=== PATIENT | male | born 1950 | race Caucasian/White ===

== ENCOUNTER 2017-04-11 17:58 | Emergency (ER) | payer MEDICARE, OTHER ==
[2017-04-11 18:43] VITALS: BP 131/70
--- NOTE | 2017-04-11 18:50 | UC ---
Skin Complaint HPI - HPI Summary HPI Summary: 67 year old male presents with complains of left 5th toe infection. - History of Current Complaint Chief Complaint: UCLowerExtremity Time Seen by Provider: 04/11/17 18:49 Stated Complaint: SORE ON LEFT PINKY TOE Hx Obtained From: Patient Onset/Duration: Sudden Onset Onset Severity: Moderate Current Severity: Moderate Pain Scale Used: 0-10 Numeric - 2 - Allergy/Home Medications Allergies/Adverse Reactions: Allergies Allergy/AdvReac Type Severity Reaction Status Date / Time Penicillins AdvReac Intermediate GI Verified 04/11/17 18:44 irritation Review of Systems Constitutional: Negative Skin: Other - left 5th toe infection Eyes: Negative ENT: Negative Respiratory: Negative Cardiovascular: Negative Gastrointestinal: Negative Genitourinary: Negative Motor: Negative Neurovascular: Negative Musculoskeletal: Negative Neurological: Negative Psychological: Negative All Other Systems Reviewed And Are Negative: Yes PMH/Surg Hx/FS Hx/Imm Hx Previously Healthy: Yes - Surgical History Surgical History: Yes Surgery Procedure, Year, and Place: Three inguinal hernia repairs. Tonsillectomy - Family History Known Family History: Positive: Cardiac Disease - Father of [place] at age 52, Diabetes - Social History Alcohol Use: Weekly Alcohol Amount: 3-4 DRINKS/DAY Substance Use Type: None Smoking Status (MU): Former Smoker Physical Exam Triage Information Reviewed: Yes Vital Signs: Initial Vital Signs Temp 36.8 C 04/11/17 18:39 Pulse 100 04/11/17 18:39 Resp 20 04/11/17 18:39 BP 131/70 04/11/17 18:39 Pulse Ox 99 04/11/17 18:39 Vital Signs Reviewed: Yes Eye Exam: Normal ENT Exam: Normal Dental Exam: Normal Neck exam: Normal Neck: Positive: 1 Respiratory Exam: Normal Cardiovascular Exam: Normal Abdominal Exam: Normal Musculoskeletal Exam: Normal Neurological Exam: Normal Psychological Exam: Normal Skin: Positive: Other - left 5th toe infection Course/Dx - Diagnoses Provider Diagnoses: left 5th toe infection Discharge - Discharge Plan Condition: Stable Disposition: OTHER Discharge Disposition Comment: patient suggested to go to the er Patient Education Materials: Wound Infection (ED) Referrals: Ramez Akins MD [Primary Care Provider] - Additional Instructions: patient suggested to go to the er for severe left 5th toe infection.
== END 2017-04-11 19:15 ==
LOC: UCEAST 17:58
DX: L08.9 Local infection of the skin and subcutaneous tissue, unspecified (principal); Z88.0 Allergy status to penicillin; Z87.891 Personal history of nicotine dependence
CPT/HCPCS: 99212; G0463

== ENCOUNTER 2017-04-11 20:36 | Inpatient (IN) | payer MEDICARE, OTHER ==
[2017-04-11] MEDS ORDERED: Ciprofloxacin 400MG IVPREMIX(* 400 MG/200 ML BAG IVPB ONE (21:35)
[2017-04-11] MEDS ORDERED: metroNIDAZOLE IV 500 MG/100ML* 500 MG/100 ML BAG IVPB ONE (21:35)
[2017-04-11] MEDS ORDERED: Vancomycin(*) 1,000 MG VIAL IVPB SCH (22:00)
[2017-04-11 22:29] LABS: ABS Basophils 0.1 10^3/ul (0-0.2); ABS Eosinophils 0.1 10^3/ul (0-0.6); ABS Lymphocytes 0.7 10^3/ul (1.0-4.8); ABS Monocytes 1.2 10^3/ul (0-0.8); ABS Neutrophils 7.7 10^3/ul (1.5-7.7); ABS Nucleated RBC 0 10^3/ul; Eosinophil % 0.6 % (0-6); Hematocrit 41 % (42-52); Hemoglobin 14.5 g/dl (14.0-18.0); Lymphocyte % 6.9 % (25-47); Mean Corpuscular HGB Conc 36 g/dl (31-36); Mean Corpuscular Hemoglobin 35 pg (27-31); Mean Corpuscular Volume 99 fL (80-94); Mean Platelet Volume 9 um3 (7.4-10.4); Nucleated Red Blood Cells % 0; Platelet Count 180 10^3/ul (150-450); Red Cell Distribution Width 14 % (10.5-15); Urine Appearance Clear; Urine Blood Negative (Negative); Urine Color Yellow; Urine Ketones Trace (Negative); Urine Protein Negative (Negative); Urine Specific Gravity 1.005 (1.010-1.030); Urine Urobilinogen Negative (Negative); White Blood Count 9.8 10^3/ul (3.5-10.8)
--- NOTE | 2017-04-11 22:29 | RAD ---
INDICATION: Left small toe ulcer TECHNIQUE: 3 views of the left small toe were obtained. FINDINGS: There is visible soft tissue swelling surrounding the left small toe. There is cortical destruction and bony resorption involving the distal pole of the proximal phalanx and most of the middle phalanx. IMPRESSION: Ill-defined destruction involving the distal pole of the proximal phalanx and middle phalanx of the left small toe. Please correlate to history of traumatic injury, osteomyelitis or or crystalline arthropathy such as gout.
[2017-04-11 22:38] LABS: INR 1.36 (0.77-1.02)
[2017-04-11 22:40] LABS: EGFR Non-African American 79.6 (>60)
[2017-04-11] MEDS ORDERED: Zolpidem TAB* 10 MG PO PRN (23:00)
[2017-04-11] MEDS ORDERED: Morphine INJ* 2 MG/ML 1 ML SYRINGE (TWO MG - NEW SYRINGE VERSION) IV PRN (23:00)
[2017-04-11] MEDS ORDERED: Ondansetron INJ* 2 MG/ML VIAL IV PRN (23:00)
[2017-04-11] MEDS ORDERED: Acetaminophen TAB* 325 MG PO PRN (23:00)
[2017-04-11] MEDS ORDERED: Vancomycin(*) 2,000 MG in NS 0.9% 500 ML* 500 ML IVPB ONE (23:00)
[2017-04-11] MEDS ORDERED: NS 0.9% 1000 ML* 1,000 ML IV ONE (23:08)
[2017-04-12] MEDS ORDERED: Diazepam TAB(*) 5 MG PO PRN (01:40)
[2017-04-12] MEDS: Hydrochlorothiazide TAB* 25 MG PO SCH ×2 (02:31→20:52)
[2017-04-12] MEDS: Metoprolol Succinate XL TAB* 100 MG PO SCH ×2 (02:31→20:53)
[2017-04-12] MEDS: amLODIPine TAB* 5 MG PO SCH ×2 (02:35→20:52)
[2017-04-12] MEDS: Losartan TAB* 25 MG PO SCH ×2 (02:35→20:54)
[2017-04-12] MEDS: Citalopram TAB* 20 MG PO SCH ×2 (02:35→20:55)
[2017-04-12] MEDS: Atorvastatin* 20 MG TAB PO SCH ×2 (02:35→20:52)
[2017-04-12] MEDS: Tamsulosin CAP* 0.4 MG PO SCH ×2 (02:36→20:51)
[2017-04-12 05:55] LABS: ABS Basophils 0 10^3/ul (0-0.2); ABS Eosinophils 0 10^3/ul (0-0.6); ABS Lymphocytes 0.7 10^3/ul (1.0-4.8); ABS Monocytes 1.5 10^3/ul (0-0.8); ABS Neutrophils 5.8 10^3/ul (1.5-7.7); ABS Nucleated RBC 0 10^3/ul; Eosinophil % 0.6 % (0-6); Hematocrit 38 % (42-52); Hemoglobin 13.1 g/dl (14.0-18.0); Lymphocyte % 9.2 % (25-47); Mean Corpuscular HGB Conc 34 g/dl (31-36); Mean Corpuscular Hemoglobin 34 pg (27-31); Mean Corpuscular Volume 99 fL (80-94); Mean Platelet Volume 9 um3 (7.4-10.4); Nucleated Red Blood Cells % 0; Platelet Count 155 10^3/ul (150-450); Red Blood Count 3.86 10^6/ul (4.0-5.4); Red Cell Distribution Width 14 % (10.5-15); White Blood Count 8.1 10^3/ul (3.5-10.8)
[2017-04-12 06:16] LABS: EGFR Non-African American 93.2 (>60)
--- NOTE | 2017-04-12 06:23 | HP ---
CC: Dr. Akins * HISTORY AND PHYSICAL: DATE OF ADMISSION: 04/11/17 TIME OF MY EVALUATION: 11:00 p.m. PRIMARY CARE PROVIDER: Dr. Ramez Akins, [facility]. CHIEF COMPLAINT: Infected toe in the setting of diabetic neuropathy and obvious infection. HISTORY OF PRESENT ILLNESS: Mr. Luevano is a 67-year-old gentleman, brought to the emergency room with an ongoing pinky toe injury on his left foot since . The patient was getting out of his bed when he struck it and he lacerated it. The patient treated it with antiseptic wash. The patient has diabetes and neuropathy, and the toe has been progressively worse. The patient denies any systemic symptomatology. He can still ambulate without difficulty. He is concerned about the toe and that it might need to be amputated. The patient has a history of atrial fibrillation and is on anticoagulation. He also has a history of hypertension, hyperlipidemia, and diet-controlled diabetes as well as morbid obesity and depression and anxiety. The patient states that his diabetes is actually in rather good control. He states that his hemoglobin A1c is in the low 6's and that he does not take any medications for that at this time. He has no other complaints beyond his toe. PAST MEDICAL HISTORY: 1. Hypertension. 2. Hyperlipidemia. 3. Diet-controlled diabetes, reported hemoglobin A1c around 6%. 4. BPH. 5. Depression. 6. Anxiety. 7. Suspected sleep apnea. 8. Morbid obesity with BMI greater than 50. 9. Atrial fibrillation - on anticoagulation with Xarelto. OUTPATIENT MEDICATIONS: 1. Xarelto 20 mg by mouth daily. 2. Norvasc 5 mg by mouth daily. 3. Lipitor 20 mg by mouth at bedtime. 4. Celexa 20 mg by mouth daily. 5. Valium 5 mg by mouth 3 times daily p.r.n. anxiety. 6. Hyzaar (losartan/hydrochlorothiazide 100/25) one tablet by mouth once daily. 7. Toprol-XL 100 mg by mouth daily. 8. Multivitamin with minerals one tablet by mouth daily. 9. Flomax 0.4 mg by mouth daily. FAMILY HISTORY: The patient's father at age 52 from an acute NE. SOCIAL HISTORY: The patient quit smoking 30 years ago, but had a 87-cmgh-iwer smoking history before that. The patient drinks one to two beers per day. He lives with his . He lives in a community setting. REVIEW OF SYSTEMS: A review of 14 systems was accomplished at the bedside. This was largely negative except for the pertinent positives as mentioned above. This was for 14 systems. PHYSICAL EXAMINATION ON ADMISSION GENERAL: The patient is somewhat disheveled, obese elderly man who appears stated age, in no apparent distress. Awake, alert and oriented x3, and answering questions appropriately. VITAL SIGNS: Temperature 98.5 Fahrenheit, pulse 89, respirations 24, blood pressure 112/66, pulse ox 96% on room air. HEENT: Oropharynx clear. Mucous membranes are moist. NECK: Supple. No elevated JVD, though landmarks are obscured secondary to his obesity. LUNGS: Chest, clear breath sounds anteriorly without wheezing appreciation. HEART: Irregularly irregular rhythm consistent with atrial fibrillation, but rate controlled. The patient has fairly massive lower extremity edema owing to incompetent veins as per the patient. ABDOMEN: Morbidly obese, but nontender. SKIN: Dry and intact, other than his feet, which are tensely swollen and the left pinky is obviously infected and lacerated with dripping blood. NEUROLOGIC: Glove and stocking sensory diminishment consistent with longstanding diabetes. PSYCH: Normal affect. No acute anxiety or depression noted at this time. ADMISSION DATA: Includes a depressed sodium of 127, potassium borderline low at 3.7, chloride low at 91, bicarb 27, BUN 16, creatinine 0.94, glucose 105. Lactic acid initially 2.2, cleared to 1.5 with gentle hydration. Calcium 9.7. Total bilirubin 0.8. AST and ALT are 32 and 29, respectively. Alk phos elevated at 137. Total protein and albumin are 7.2 and 3.5 respectively. Urinalysis generally unremarkable. White blood cell count normal at 9.8 with a generally unremarkable differential , hemoglobin 14.5, platelets 180. INR elevated at 1.36 (on Xarelto). IMAGING: He had a toe x-ray on 2137 hours on 04/11/17 showing signs consistent with osteomyelitis with an ill-defined destruction involving the distal pole of the proximal phalanx and the middle phalanx of the left small toe. There was a suggestion that this could be secondary to crystalline arthropathy such as gout , though that is clinically not consistent with the presentation. IMPRESSION: Mr. Luevano is a 67-year-old gentleman with longstanding diabetes now, reportedly under reasonable control (but hemoglobin A1c pending here), who struck his toe and witnessed a progressive worsening of this toe to the point that it seems to clearly have osteomyelitis and a nonhealing wound. This likely needs debridement. There is evidence of osteo on imaging. The patient is going to be treated with IV antibiotics, specifically ciprofloxacin and metronidazole. The patient will be referred to Ortho or General Surgery for debridement and/or focal amputation tomorrow, 04/12/17. The patient's Xarelto is going to be held, accordingly it may take a day or two to operate depending on the bleeding concern of the surgical team. The patient is otherwise cleared for this generally minor procedure. His substantial other medications will be continued as detailed above. The patient is a full code. His surrogate decision maker is specified as his . The patient can have a consistent carbohydrate diet when he is not fasting for procedure. TIME SPENT: Total time taken to admit Mr. Luevano was 75 minutes, greater than half that time spent going over the admission history and physical at the bedside and explaining the hospital plan of care to the patient. [id number]/[facility] #: [id number] MTDD
--- NOTE | 2017-04-12 08:20 | PN ---
Subjective Date of Service: 04/12/17 Interval History: Patient seen and examined at bedside. This is a 67 yo gentleman with a history of NIDDM, HTN, HLD, afib on Xarelto, depression, and anxiety who presented to the ED with a left pinky toe injury. While the previous physician notes indicate this has been ongoing since 03/08/17 , Mr. Luevano denies this and states he struck it on some furniture this past Wednesday. He went to see his document preparer microfilming on , who apparently told him to do foot soaks. He denies any pain to the area and admits that he does not feel any pain to the toe and may not have necessarily noticed if it had an injury. He states, "I noticed there was a blister there." His XR shows evidence of osteomyelitis, which was shared with the patient. He is very anxious about toe amputation. He has no other complaints and denies any toe, foot, leg pain, fever/chills, CP, SOB, n/v, dysuria. Family History: Unchanged from Admission Social History: Unchanged from Admission Past Medical History: Unchanged from Admission Objective Active Medications: Acetaminophen (Tylenol Tab*) 650 mg PO Q4H PRN PRN Reason: FEVER/PAIN Amlodipine Besylate (Norvasc Tab*) 5 mg PO BEDTIME [facility]ODAN Last Admin: 04/12/17 02:35 Dose: 5 mg Atorvastatin Calcium (Lipitor*) 20 mg PO BEDTIME HODAN Last Admin: 04/12/17 02:35 Dose: 20 mg Citalopram Hydrobromide (Celexa Tab*) 20 mg PO BEDTIME [facility]ODAN Last Admin: 04/12/17 02:35 Dose: 20 mg Diazepam (Valium Tab(*)) 5 mg PO TID PRN PRN Reason: ANXIETY Last Admin: 04/12/17 02:36 Dose: 5 mg Hydrochlorothiazide (Hydrodiuril Tab*) 25 mg PO BEDTIME HODAN Last Admin: 04/12/17 02:31 Dose: 25 mg Ciprofloxacin/Dextrose (Cipro 400 Mg Ivpremix(*)) 400 mg in 200 mls @ 200 mls/ hr IVPB Q12H [facility]ODAN Metronidazole/Sodium Chloride (Flagyl 500 Mg Ivpb*) 500 mg in 100 mls @ 100 mls /hr IVPB Q12H [facility] Losartan Potassium (Cozaar Tab*) 100 mg PO BEDTIME [facility] Last Admin: 04/12/17 02:35 Dose: 100 mg Metoprolol Succinate (Toprol Xl Tab*) 100 mg PO BEDTIME [facility] Last Admin: 04/12/17 02:31 Dose: 100 mg Morphine Sulfate (Morphine Inj (Syringe)*) 2 mg IV Q4H PRN PRN Reason: PAIN Multivitamins/Minerals (Theragran/Minerals Tab*) 1 tab PO BEDTIME [facility] Ondansetron HCl (Zofran Inj*) 4 mg IV Q4H PRN PRN Reason: NAUSEA/VOMITING Pneumococcal Polyvalent Vaccine (Pneumococcal Vac 23-Polyvalent*) 0.5 ml IM .ONCE ONE Stop: 04/12/17 09:01 Tamsulosin HCl (Flomax Cap*) 0.4 mg PO BEDTIME [facility] Last Admin: 04/12/17 02:36 Dose: 0.4 mg Zolpidem Tartrate (Ambien Tab*) 10 mg PO BEDTIME PRN PRN Reason: INSOMNIA Vital Signs - 8 hr 04/12/17 04/12/17 04/12/17 00:45 01:26 02:36 Temperature 98.2 F Pulse Rate 101 Respiratory 17 20 20 Rate Blood Pressure 137/58 (mmHg) O2 Sat by Pulse 97 Oximetry 04/12/17 04/12/17 04/12/17 04:08 04:09 05:11 Temperature 98.2 F Pulse Rate 28 95 Respiratory 16 18 Rate Blood Pressure 132/62 (mmHg) O2 Sat by Pulse 93 Oximetry Oxygen Devices in Use Now: None Appearance: Disheveled older male, pleasant, lying in bed, in NAD Eyes: No Scleral Icterus Ears/Nose/Mouth/Throat: Clear Oropharnyx, Mucous Membranes Moist Neck: NL Appearance and Movements; NL JVP Respiratory: Symmetrical Chest Expansion and Respiratory Effort, Clear to Auscultation Cardiovascular: - - irregularly irregular rate/rhythm, rate controlled Abdominal: NL Sounds; No Tenderness; No Distention Extremities: - - chronic venous stasis changes, BLE edema, pedal pulses present by doppler Skin: - - Left 5th toe laceration Neurological: Alert and Oriented x 3, NL Muscle Strength and Tone, - - diminished sensation to lower extremities Lines/Tubes/Other Access: Clean, Dry and Intact Peripheral IV Nutrition: Taking PO's Result Diagrams: 04/12/17 05:39 04/12/17 05:39 Assess/Plan/Problems-Billing Assessment: Mr. Luevano is a 67 yo male with a PMH significant for HTN, HLD, NIDDM, BPH, atrial fibrilation on Xarelto, morbid obesity, suspected MOOKIE, depression and anxiety who recently injured his toe and has had progressive worsening of the wound with concern for osteomyelitis. - Patient Problems (1) Laceration of toe of left foot with complication Code(s): S91.119A - LACERATION W/O FB OF UNSP TOE W/O DAMAGE TO NAIL, INIT Comment: With recent injury to left 5th toe and localized infection Evidence of osteomyelitis seen on XR Continue IV ciprofloxacin and metronidazole ID consult for Wednesday Surgery consult for wound care recommendations (2) Osteomyelitis of toe of left foot Code(s): M86.9 - OSTEOMYELITIS, UNSPECIFIED Comment: Secondary to chronic diabetic wound to left 5th toe Continue IV ciprofloxacin and metronidazole ID and surgery consults pending (3) Type 2 diabetes mellitus Comment: Diet controlled HgbA1c 5.5 (4) Atrial fibrillation Code(s): I48.91 - UNSPECIFIED ATRIAL FIBRILLATION Comment: Rate controlled Continue metoprolol Hold rivaroxaban in anticipation of surgical intervention (5) HTN (hypertension) Code(s): I10 - ESSENTIAL (PRIMARY) HYPERTENSION Comment: Mostly normotensive Continue home metoprolol, amlodipine, losartan/HCTZ (6) HLD (hyperlipidemia) Code(s): E78.5 - HYPERLIPIDEMIA, UNSPECIFIED Comment: Stable Continue statin (7) BPH (benign prostatic hyperplasia) Code(s): N40.0 - BENIGN PROSTATIC HYPERPLASIA WITHOUT LOWER URINRY TRACT SYMP Comment: Stable Continue tamsulosin (8) Depression with anxiety Comment: Stable Continue citalopram and prn diazepam (9) DVT prophylaxis Comment: Held in anticipation of surgery Resume rivaroxaban when okay with surgery Status and Disposition: Inpatient admission. D/c to home when medically stable.
[2017-04-12] MEDS ORDERED: Pneumococcal *Vac Polyvalent 0.5 ML VIAL IM ONE (09:00)
[2017-04-12] MEDS: metroNIDAZOLE IV 500 MG/100ML* 500 MG/100 ML BAG IVPB SCH ×2 (09:27→20:56)
[2017-04-12] MEDS: Ciprofloxacin 400MG IVPREMIX(* 400 MG/200 ML BAG IVPB SCH ×2 (11:28→23:26)
[2017-04-12] MEDS: Multivitamins/Minerals TAB PO SCH (20:52)
--- NOTE | 2017-04-12 21:35 | CONS ---
CC: Dr. Ramez Akins; Dr. Barahona; [facility] * SURGICAL CONSULTATION REPORT: DATE OF CONSULT: 04/12/17 HISTORY OF PRESENT ILLNESS: I was contacted by the hospitalist service to evaluate Mr. Luevano, a 67-year-old gentleman admitted with a diagnosis of cellulitis of the left lower extremity with likely osteomyelitis of the fifth digit on the left foot. The patient describes onset of symptoms on when he noted a burst blister at his left fifth digit. He recollects bumping this in to a table the prior day. The patient denies any previous issues prior to this. He does have longstanding history of obesity and diabetes. He sees a electric frying pan repairer regularly for clipping of toenails. He contacted his primary care doctor and his electric frying pan repairer and was asked to present to the ER where he presented to urgent care and was sent to the emergency room where he was admitted. The patient denies any pain. He describes drainage at the site of the toe. No similar injuries in the past. PAST MEDICAL HISTORY: Reviewed and includes: 1. Diet-controlled diabetes. 2. Hypertension. 3. Hypercholesterolemia. 4. BPH. 5. Obesity. 6. Atrial fibrillation. MEDICATIONS: Medication list is reviewed. He takes Xarelto and his last dose he believes was possibly yesterday or the day before, he is not entirely sure. It has been held since admission. ALLERGIES: He is allergic to PENICILLIN. SOCIAL HISTORY: Reviewed. REVIEW OF SYSTEMS: No fever or chills. The patient has history of varicose veins. He was going to undergo vein surgery with a local surgeon and was noted to be in atrial fibrillation. This was when he was started on Xarelto. He did not undergo this procedure. This was going to be done on his left lower extremity for lymphedema. PHYSICAL EXAM: He is afebrile. Vital signs are stable. He is alert and oriented x3. He is in no apparent distress. Head, ears, eyes, nose, and throat : Normocephalic and atraumatic. Sclerae anicteric. Mucous membranes are moist. Focused examination of the extremities reveals an obvious deformity at the left fifth toe with an ulceration measuring 1 x 1 x 1 cm deep. Bone was easily probed. There is fibrinous exudate within the wound. It is foul smelling with evidence of subcutaneous gangrene. Periwound skin shows mild erythema and callus. Pulses are not palpable. He has woody appearance of both extremities with left worse than right of venous disease and lymphedema. This is nonpitting. Right lower extremity reveals long toenails without any ulceration or erythema. Nonpalpable pulses and non-compressible edema. DIAGNOSTIC STUDIES/LAB DATA: The patient underwent an x-ray. The report was reviewed of the toe and is suggestive of osteomyelitis at the distal pole of the proximal phalanx and middle phalanx of the left fifth toe. IMPRESSION: Clinical osteomyelitis with exposed bone and ulcer in a patient with morbid obesity and diabetes. Differential diagnosis thus include arterial insufficiency. We will send him for ABIs. This diagnosis is compounded with venostasis disease as well, but nevertheless I believe the patient would benefit from a ray amputation of the left fifth digit. I outlined the details of the procedure going over the risks, benefits and alternatives. I spoke with possibility of continued infection and need for additional procedures. I spoke with the patient the alternatives of antibiotics and off loading describing that given the patient's BMI of 47 and the extent of this current ulceration that this would be a a very difficult road and I highly recommend an amputation. The patient wishes to go in this direction. I will keep him n.p.o. at midnight and take him to the operating room for a left fifth digit ray amputation. He will continue with antibiotics at this point. We will send specimen in the operating room. For now, the patient can undergo Xeroform dressings. We will order ABIs. [id number]/[facility] #: [id number] MTDD
[2017-04-13 05:59] LABS: Hematocrit 39 % (42-52); Hemoglobin 13.2 g/dl (14.0-18.0); Mean Corpuscular HGB Conc 34 g/dl (31-36); Mean Corpuscular Hemoglobin 34 pg (27-31); Mean Corpuscular Volume 101 fL (80-94); Mean Platelet Volume 8 um3 (7.4-10.4); Platelet Count 155 10^3/ul (150-450); Red Blood Count 3.87 10^6/ul (4.0-5.4); Red Cell Distribution Width 14 % (10.5-15); White Blood Count 8.3 10^3/ul (3.5-10.8)
[2017-04-13 06:13] LABS: EGFR Non-African American 79.6 (>60)
[2017-04-13 06:42] LABS: Monocytes % 11 % (0-13)
[2017-04-13 06:45] LABS: ABS Eosinophils 0.1 10^3/ul (0-0.6); ABS Monocytes 1.2 10^3/ul (0-0.8); ABS Neutrophils 5.9 10^3/ul (1.5-7.7)
[2017-04-13 06:46] LABS: ABS Nucleated RBC 0 10^3/ul
[2017-04-13 06:52] LABS: ABS Basophils 0 10^3/ul (0-0.2)
[2017-04-13] MEDS ORDERED: Buffered Lidocaine 0.9% SYRIN* 5 ML/SYR SYRINGE INTRADERM ONE (09:11)
[2017-04-13] MEDS ORDERED: Acetaminophen TAB* 325 MG PO PRN (09:11)
[2017-04-13] MEDS ORDERED: Levalbuterol 0.63MG/3ML NEB* UNIT OF USE INH PRN (09:11)
[2017-04-13] MEDS ORDERED: DiMENhydriNATE IV* 50 MG/ML VIAL IV PUSH PRN (09:11)
[2017-04-13] MEDS ORDERED: fentaNYL* 50 MCG/ML 2 ML VIAL (100 MCG VIAL) IV PRN (09:11)
--- NOTE | 2017-04-13 09:40 | RAD ---
INDICATION: Preoperative study left fifth toe amputation. COMPARISON: There are no prior studies available for comparison. TECHNIQUE: Bilateral ankle brachial indices were measured and Doppler tracings were obtained at the ankle of the dorsalis pedis and posterior tibial arteries. FINDINGS: The ankle brachial index on the right was 1.19 and on the left was 1.24. There is triphasic flow within the right posterior tibial artery and triphasic flow within the right dorsalis pedis artery. There is triphasic flow within the left posterior tibial artery and triphasic flow within the left dorsalis pedis artery. IMPRESSION: THE ANKLE BRACHIAL INDICES ARE WITHIN NORMAL LIMITS.
[2017-04-13] MEDS ORDERED: Bupivacaine 0.25% SDV* 30 ML ONE (09:47)
[2017-04-13] MEDS ORDERED: Lidocaine 1% MPF* 2 ML VIAL ONE (09:47)
[2017-04-13] MEDS ORDERED: Midazolam* 1 MG/ML 2 ML VIAL (2 MG) ONE (09:58)
[2017-04-13] MEDS: metroNIDAZOLE IV 500 MG/100ML* 500 MG/100 ML BAG IVPB SCH ×2 (10:02→20:59)
[2017-04-13] MEDS ORDERED: Famotidine IV* 10 MG/ML 2 ML (20 mg) ONE (11:04)
[2017-04-13] MEDS ORDERED: Propofol* 10 MG/ML 20 ML BTL IV PUSH ONE (11:04)
[2017-04-13] MEDS ORDERED: Metoprolol Tartrate IV* 1 MG/ML 5 ML VIAL ONE (11:04)
[2017-04-13] MEDS ORDERED: KETAMINE HCL* 50 MG/ML 10 ML VIAL ONE (11:16)
--- NOTE | 2017-04-13 12:14 | BRIEFOPN ---
Brief Operative Note - Surgery Procedures: Procedures Pre-OP Diagnoses: acute osteomyelitis of L 5th toe Post-op Diagnosis: same Procedure: ray amputation of left 5th toe Surgeon: Bob Asst: none Anethesia: local ARASH Interiano EBL: minimal IVF: crystalloid Specimen: left fifth toe Drains: none
[2017-04-13] MEDS: Ciprofloxacin 400MG IVPREMIX(* 400 MG/200 ML BAG IVPB SCH ×2 (13:10→23:35)
--- NOTE | 2017-04-13 14:32 | PN ---
Subjective Date of Service: 04/13/17 Interval History: Patient seen and examined at bedside. He is s/p ray amputation of left 5th toe. He denies fever/chills, CP, SOB, n/v, pain to foot. He has just finished lunch and reports feeling well, though still somewhat groggy from anesthesia. No acute concerns from patient or nursing staff. Family History: Unchanged from Admission Social History: Unchanged from Admission Past Medical History: Unchanged from Admission Objective Active Medications: Acetaminophen (Tylenol Tab*) 650 mg PO Q4H PRN PRN Reason: FEVER/PAIN Acetaminophen (Tylenol Tab*) 650 mg PO ONCE PRN PRN Reason: PAIN - MILD Stop: 04/13/17 16:00 Amlodipine Besylate (Norvasc Tab*) 5 mg PO BEDTIME [facility] Last Admin: 04/12/17 20:52 Dose: 5 mg Atorvastatin Calcium (Lipitor*) 20 mg PO BEDTIME [facility] Last Admin: 04/12/17 20:52 Dose: 20 mg Citalopram Hydrobromide (Celexa Tab*) 20 mg PO BEDTIME [facility] Last Admin: 04/12/17 20:55 Dose: 20 mg Diazepam (Valium Tab(*)) 5 mg PO TID PRN PRN Reason: ANXIETY Last Admin: 04/12/17 02:36 Dose: 5 mg Dimenhydrinate (Dramamine Iv*) 25 mg IV PUSH ONCE PRN PRN Reason: NAUSEA/VOMITING Stop: 04/13/17 16:00 Fentanyl Citrate (Fentanyl*) 25 mcg IV Q5M PRN PRN Reason: PAIN - MODERATE Stop: 04/13/17 16:00 Hydrochlorothiazide (Hydrodiuril Tab*) 25 mg PO BEDTIME [facility] Last Admin: 04/12/17 20:52 Dose: 25 mg Ciprofloxacin/Dextrose (Cipro 400 Mg Ivpremix(*)) 400 mg in 200 mls @ 200 mls/ hr IVPB Q12H [facility] Last Admin: 04/13/17 13:10 Dose: 200 mls/hr Metronidazole/Sodium Chloride (Flagyl 500 Mg Ivpb*) 500 mg in 100 mls @ 100 mls /hr IVPB Q12H [facility] Last Admin: 04/13/17 10:02 Dose: 100 mls/hr Lactated Ringer's (Lactated Ringers 1000 Ml Bag*) 1,000 mls @ 125 mls/hr IV PER RATE [facility] Last Admin: 04/13/17 13:09 Dose: 125 mls/hr Levalbuterol HCl (Xopenex 0.63mg/3ml Neb*) 0.63 mg INH ONCE PRN PRN Reason: SOB/WHEEZING Stop: 04/13/17 16:00 Losartan Potassium (Cozaar Tab*) 100 mg PO BEDTIME [facility] Last Admin: 04/12/17 20:54 Dose: 100 mg Metoprolol Succinate (Toprol Xl Tab*) 100 mg PO BEDTIME [facility] Last Admin: 04/12/17 20:53 Dose: 100 mg Morphine Sulfate (Morphine Inj (Syringe)*) 2 mg IV Q4H PRN PRN Reason: PAIN Multivitamins/Minerals (Theragran/Minerals Tab*) 1 tab PO BEDTIME [facility] Last Admin: 04/12/17 20:52 Dose: 1 tab Ondansetron HCl (Zofran Inj*) 4 mg IV Q4H PRN PRN Reason: NAUSEA/VOMITING Tamsulosin HCl (Flomax Cap*) 0.4 mg PO BEDTIME [facility] Last Admin: 04/12/17 20:51 Dose: 0.4 mg Zolpidem Tartrate (Ambien Tab*) 10 mg PO BEDTIME PRN PRN Reason: INSOMNIA Vital Signs - 8 hr 04/13/17 04/13/17 04/13/17 07:44 12:21 12:30 Temperature 97.7 F 97.7 F Pulse Rate 91 78 81 Respiratory 16 22 22 Rate Blood Pressure 147/76 145/91 140/75 (mmHg) O2 Sat by Pulse 93 98 94 Oximetry 04/13/17 04/13/17 04/13/17 12:45 13:01 13:05 Temperature 98.1 F Pulse Rate 83 85 85 Respiratory 22 20 20 Rate Blood Pressure 125/69 117/65 117/65 (mmHg) O2 Sat by Pulse 93 97 97 Oximetry 04/13/17 13:11 Temperature Pulse Rate Respiratory 20 Rate Blood Pressure (mmHg) O2 Sat by Pulse Oximetry Oxygen Devices in Use Now: None Appearance: Male patient, sitting on edge of bed, NAD Eyes: No Scleral Icterus Ears/Nose/Mouth/Throat: Clear Oropharnyx, Mucous Membranes Moist Neck: NL Appearance and Movements; NL JVP Respiratory: Symmetrical Chest Expansion and Respiratory Effort, Clear to Auscultation - diminished Cardiovascular: NL Sounds; No Murmurs; No JVD, - - irregularly irregular Abdominal: NL Sounds; No Tenderness; No Distention Extremities: - - BLE edema with chronic venous stasis changes Skin: - - c/d/i dressing to left foot s/p amputation of 5th toe Neurological: Alert and Oriented x 3, NL Muscle Strength and Tone Lines/Tubes/Other Access: Clean, Dry and Intact Peripheral IV Nutrition: Taking PO's Result Diagrams: 04/13/17 05:53 04/13/17 05:53 Assess/Plan/Problems-Billing Assessment: Mr. Luevano is a 67 yo male with a PMH significant for HTN, HLD, NIDDM, BPH, atrial fibrilation on Xarelto, morbid obesity, suspected MOOKIE, depression and anxiety who recently injured his toe and has had progressive worsening of the wound with concern for osteomyelitis. - Patient Problems (1) Laceration of toe of left foot with complication Code(s): S91.119A - LACERATION W/O FB OF UNSP TOE W/O DAMAGE TO NAIL, INIT Comment: With recent injury to left 5th toe and localized infection Evidence of osteomyelitis seen on XR - now s/p ray amputation Continue IV ciprofloxacin and metronidazole Appreciate surgery consult ID consult pending (2) Osteomyelitis of toe of left foot Code(s): M86.9 - OSTEOMYELITIS, UNSPECIFIED Comment: Secondary to chronic diabetic wound to left 5th toe S/p ray amputation Continue IV ciprofloxacin and metronidazole Appreciate surgery consult (3) Type 2 diabetes mellitus Comment: Diet controlled HgbA1c 5.5 (4) Atrial fibrillation Code(s): I48.91 - UNSPECIFIED ATRIAL FIBRILLATION Comment: Rate controlled Continue metoprolol Hold rivaroxaban; resume when okay with surgery (5) HTN (hypertension) Code(s): I10 - ESSENTIAL (PRIMARY) HYPERTENSION Comment: Mostly normotensive Continue home metoprolol, amlodipine, losartan/HCTZ (6) HLD (hyperlipidemia) Code(s): E78.5 - HYPERLIPIDEMIA, UNSPECIFIED Comment: Stable Continue statin (7) BPH (benign prostatic hyperplasia) Code(s): N40.0 - BENIGN PROSTATIC HYPERPLASIA WITHOUT LOWER URINRY TRACT SYMP Comment: Stable Continue tamsulosin (8) Depression with anxiety Comment: Stable Continue citalopram and prn diazepam (9) DVT prophylaxis Comment: Held in anticipation of surgery Resume rivaroxaban when okay with surgery Status and Disposition: Inpatient admission. D/c to home when medically stable.
--- NOTE | 2017-04-13 15:07 | OP ---
CC: Dr. Ramez Akins; [facility] * DATE OF OPERATION: 04/13/17 - ROOM #352 DATE OF : 46 SURGEON: Steffen Rojas MD TURNER IN: None. ANESTHESIOLOGIST: Judie Interiano MD ANESTHESIA: Local MAC. PRE-OP DIAGNOSIS: Left fifth toe acute osteomyelitis. POST-OP DIAGNOSIS: Left fifth toe acute osteomyelitis. OPERATIVE PROCEDURE: Left fifth toe ray amputation. INDICATIONS: Mr. Luevano is a 67-year-old gentleman whom I saw yesterday, was diagnosed with clinical osteomyelitis as well as radiographic evidence. After evaluation, I recommended toe amputation, outlined the details of the procedure with Mr. Luevano along with risks, benefits, and alternatives. We spoke with him again today including the possible complications of wound infection and the need for additional procedures. ESTIMATED BLOOD LOSS: Minimal blood loss. FLUIDS: Minimal crystalloid fluid given. SPECIMEN: Left fifth toe. DRAINS: Quarter-inch Swapnil drain left in the incision site. DESCRIPTION OF PROCEDURE: The patient identified in the preoperative area, wound again visualized. The left foot was marked. He was evaluated by the anesthesiologist. He was brought back to the operating room and placed on the operating table in supine position. The patient had already been on antibiotics. No additional antibiotics were ordered. Gentle sedation was given. The patient's left foot was prepped and draped with Betadine and a time- out was performed. the first 4 toes, I was able to access the wounding site. It measured 1 x 1 x 1 cm in the dorsal lateral aspect of the left fifth toe. This showed fibrinous exudative and exposed bone. We marked area around the toe extending this anteriorly towards the metatarsal. This was incised after injection of lidocaine and deepened this down to the fascia overlying the metatarsal bone. Hemostasis was obtained as we made our dissection with gentle traction on the toe distally. We could get him to the proper plane to expose the distal shaft of the fifth metatarsal bone. The specimen did split at this spot taking the mid and distal phalanx along with its overlying tissue. With the shaft of the fifth metatarsal exposed, this was cut and the full specimen was removed, removing this metatarsal as well as the proximal phalanx that appeared also involved. This was passed off as specimen. Next, we used a rasp to clean off the edges of the bone anteriorly. There was no additional disease. We then Pulsavac'd approximately 2 L of warm saline. Hemostasis was then achieved and the incision was reapproximated with 3-0 nylon suture in a vertical mattress fashion and a quarter-inch Swapnil drain was placed proximally into the incision site, followed by Xeroform and then dressing. The patient tolerated the procedure well, was transferred to PACU in stable condition. [id number]/[facility] #: [id number] [facility]
[2017-04-13] MEDS: Multivitamins/Minerals TAB PO SCH (21:07)
[2017-04-13] MEDS: amLODIPine TAB* 5 MG PO SCH (21:07)
[2017-04-13] MEDS: Metoprolol Succinate XL TAB* 100 MG PO SCH (21:07)
[2017-04-13] MEDS: Hydrochlorothiazide TAB* 25 MG PO SCH (21:08)
[2017-04-13] MEDS: Atorvastatin* 20 MG TAB PO SCH (21:08)
[2017-04-13] MEDS: Tamsulosin CAP* 0.4 MG PO SCH (21:08)
[2017-04-13] MEDS: Losartan TAB* 25 MG PO SCH (21:08)
[2017-04-13] MEDS: Citalopram TAB* 20 MG PO SCH (21:09)
--- NOTE | 2017-04-14 09:26 | PN ---
Progress Note - Progress Note Date of Service: 04/14/17 SOAP: Subjective: Pt seen and evaluated. He is doing well with no complaints Objective: [af vss L foot dressing intact w/o drainage path: P Assessment: POD1 L 5th toe amp Plan: d/c home f/u in wound center this Wednesday WBAT with surgical shoe
[2017-04-14] MEDS: metroNIDAZOLE IV 500 MG/100ML* 500 MG/100 ML BAG IVPB SCH (09:30)
[2017-04-14] MEDS: Ciprofloxacin 400MG IVPREMIX(* 400 MG/200 ML BAG IVPB SCH (10:51)
[2017-04-14] MEDS: DOXYcycline CAP(*) 100 MG PO SCH ×2 (13:18→15:29)
[2017-04-14 13:29] VITALS: BP 132/77
--- NOTE | 2017-04-15 01:38 | DS ---
CC: Dr. Akins * MEDICINE DISCHARGE SUMMARY: DATE OF ADMISSION: 04/11/17 DATE OF DISCHARGE: 04/14/17 PROVIDER: Emerald Zavala NP ATTENDING PHYSICIAN: Dr. Janeen Maya * (dictated by Emerald Zavala NP) CONSULTING PHYSICIAN: Dr. Steffen Rojas. SURGEON: Dr. Bryn Barnhart, Infectious Disease. PRIMARY CARE PROVIDER: Dr. Ramez Akins. PRIMARY DISCHARGE DIAGNOSES: 1. Left 5th toe infection status post ray amputation. 2. Osteomyelitis of left toes status post amputation. 3. Type 2 diabetes. SECONDARY DISCHARGE DIAGNOSES: 1. Hypertension. 2. Hyperlipidemia. 3. Diet controlled diabetes. 4. Benign prostatic hyperplasia. 5. Depression. 6. Anxiety. 7. Suspected sleep apnea. 8. Atrial fibrillation on Xarelto. MEDICATIONS AT DISCHARGE: 1. Amlodipine 5 mg daily. 2. Tamsulosin 0.4 mg daily. 3. Rivaroxaban 20 mg daily. 4. Multivitamin 1 tablet daily. 5. Metoprolol succinate XL 100 mg daily. 6. Diazepam 5 mg t.i.d. p.r.n. 7. Citalopram 20 mg daily. 8. Atorvastatin 20 mg at bedtime. 9. Losartan/hydrochlorothiazide 100/25, one tablet daily. 10. Doxycycline 100 mg t.i.d. Recommended dosing is typically b.i.d.; however , this case was reviewed with Dr. Barnhart and it was recommended by Dr. Barnhart to increase the dosing to t.i.d. given the patient's BMI, weight/size as well as his infection. HOSPITAL COURSE OF STAY: For full details please refer to the H and P provided by Dr. Nelson. In summary, Mr. Luevano is a 67-year-old male who came into the emergency room with an ongoing left toe injury. The patient states that he injured the toe on a piece of furniture on April 07. He was seen by Podiatry who recommended that the patient do foot soaks. Prior to this he denies any wound to the toe, although he states that there was previously a blister there. He does not have any sensation to the foot and denies having any pain. In the ER, the patient did have an x-ray which showed concern for ill- defined destruction of the distal pole of the proximal phalanx and the middle phalanx of the left small toe that is consistent with osteomyelitis. He was admitted for IV antibiotics and surgical consult. Dr. Rojas of the surgical team came to see the patient and recommended ray amputation of the left 5th toe given the level of bone exposure and concern for osteomyelitis. The patient was taken to the OR on 04/13/17 and underwent amputation with no complaints or complications. He tolerated it well. The patient was seen again by Surgery on 04/14/17 who felt that the patient could be discharged to home with close followup in the Wound Clinic this Wednesday on 04/16/17. The patient was instructed to be weightbearing as tolerated with a surgical shoe and to keep the dressing clean, dry, and intact to the foot until able to be reevaluated and seen in the Wound Clinic. The patient is in understanding and agreement with this plan. Again, he will be placed on doxycycline per recommendations of ID. No further complaints or concerns. Of note, the patient's hemoglobin A1c on 04/11/17 was 5.5. The patient was encouraged to continue with regular Podiatry checks for evaluation of feet given his neuropathy and would like to ensure that there are no other wounds that need to be attended to. ASSESSMENT: Vital Signs: Temperature 98.3, heart rate 96, respiratory rate 18 , blood pressure 128/75, and O2 saturation is 96% on room air. HEENT: Pupils are equal, round, and reactive to light. Oral mucosa is moist. Neck is supple. No lymphadenopathy is appreciated. Cardiac: Irregularly irregular rate and rhythm. The patient appears to have rhythm that is consistent with AFib but it is rate controlled. No murmurs noted. The patient has lower extremity edema likely resulting from venostasis disease. Lungs are clear to auscultation. Abdomen: Protuberant but nontender. Bowel sounds are normoactive. Skin: The patient has a clean, dry, and intact dressing to the left foot. Again there are chronic venostasis changes to the lower extremities. Neuro: No focal deficits noted. The patient does have glove-and- stocking impairment that is consistent with neuropathy from his diabetes. He is alert and oriented x3. Psych: Affect is appropriate. The patient is pleasant and appropriate. DIET: May resume previous diet. Recommend consistent carb diet with no concentrated sweets. ACTIVITY: As tolerated. The patient should weightbearing as tolerated. CONDITION: Improved, stable. DISPOSITION: To home with close Wound Care Clinic followup. OUTPATIENT FOLLOWUP NEEDS: The patient is to follow up with the Wound Clinic. He is to continue on his doxycycline as recommended by the infectious disease specialist. TIME SPENT: Time spent on this discharge is approximately 45 minutes. Again, this is only a brief summary of the patient's hospital course of stay. For full details, please refer to the full medical record. If you have any further questions or need further assistance, please feel free to contact me at [phone]. EMERALD ZAVALA, SHANTELL [id number]/[facility] #: [id number] JASMEET
--- NOTE | 2017-04-15 11:09 | ED ---
Moo Paul Gabriel scribed for David Moulton MD on 04/11/17 at 2134 . Lower Extremity - HPI Summary HPI Summary: This patient is a 67 year old M BIBA to [facility] with a chief complaint of pinky toe injury on left foot since 03/08/17. The patient states he was getting out of bed and hit his toe which caused a small laceration. He has soaked the foot and treated it with antiseptic wash. The patient rates the pain 4/10 in severity. The patient has DM and has neuropathy in the LE. Patient denies fever , diaphoresis, chills, and pain in LE. The patient has a history of A-fib. - History of Current Complaint Chief Complaint: EDExtremityLower Stated Complaint: AFIB/LT LITTLE TOE INJURY Time Seen by Provider: 04/11/17 21:21 Hx Obtained From: Patient Mechanism Of Injury: Blunt Trauma - stubbed Onset/Duration: Still Present Severity Initially: Mild Severity Currently: None Pain Intensity: 4 Pain Scale Used: 0-10 Numeric Timing: Constant Associated Signs And Symptoms: Positive: Negative - fever, diaphoresis, chills, and pain in LE, Swelling, Redness - Allergies/Home Medications Allergies/Adverse Reactions: Allergies Allergy/AdvReac Type Severity Reaction Status Date / Time Penicillins AdvReac Intermediate GI Verified 04/11/17 18:44 irritation PMH/Surg Hx/FS Hx/Imm Hx Endocrine/Hematology History: Reports: Hx Diabetes - TYPE II Denies: Hx Thyroid Disease Cardiovascular History: Reports: Hx Atrial Fibrillation, Hx Hypertension Respiratory History: Denies: Hx Asthma, Hx Chronic Obstructive Pulmonary Disease (COPD) GI History: Denies: Hx Ulcer Musculoskeletal History: Reports: Other Musculoskeletal History - 3 inguinal hernias - Surgical History Surgery Procedure, Year, and Place: Three inguinal hernia repairs. Tonsillectomy Infectious Disease History: No Infectious Disease History: Denies: Hx Hepatitis, Hx Human Immunodeficiency Virus (HIV), History Other Infectious Disease, Traveled Outside the [place] in Last 30 Days - Family History Known Family History: Positive: Cardiac Disease - Father of MS at age 52, Diabetes - Social History Lives: With Family - Alcohol Use: Weekly Alcohol Amount: 3-4 DRINKS/DAY Substance Use Type: Reports: None Hx Tobacco Use: No Smoking Status (MU): Former Smoker Review of Systems Negative: Fever, Chills, Skin Diaphoresis Negative: Erythema Negative: Sore Throat Negative: Chest Pain Positive: Shortness Of Breath. Negative: Cough Negative: Abdominal Pain, Vomiting, Nausea Negative: dysuria, hematuria Positive: Other - pain in LE . Negative: Myalgia Negative: Rash Neurological: Negative - dizziness , Other - neuropathy All Other Systems Reviewed And Are Negative: Yes Physical Exam - Summary Physical Exam Summary: Constitutional: Well-developed, Well-nourished, Alert. (-) Distressed Skin: Warm, Dry HENT: Normocephalic; Atraumatic Eyes: Conjunctiva normal Neck: Musculoskeletal ROM normal neck. (-) JVD, (-) Stridor, (-) Tracheal deviation Cardio: Rhythm regular, rate normal, Heart sounds normal; Intact distal pulses; The pedal pulses are 2+ and symmetric. Radial pulses are 2+ and symmetric. (-) Murmur Pulmonary/Chest wall: Effort normal. (-) Respiratory distress, (-) Wheezes, (-) Rales Abd: Soft, (-) Tenderness, (-) Distension, (-) Guarding, (-) Rebound Musculoskeletal: (+) Edema Extremities: Dime sized area of necrosis on lateral aspect of left pinky, there is Ulceration deep to the dermis proximal to the necrosis. Lateral aspect of foot is erythematous. Lymph: (-) Cervical adenopathy Neuro: Alert, Oriented x3 Psych: Mood and affect Normal Triage Information Reviewed: Yes Vital Signs On Initial Exam: Initial Vitals Temp Pulse Resp BP Pulse Ox 98.5 F 89 24 112/66 96 04/11/17 20:45 04/11/17 20:45 04/11/17 20:45 04/11/17 20:45 04/11/17 20:45 Vital Signs Reviewed: Yes Diagnostics - Vital Signs Vital Signs Temp Pulse Resp BP Pulse Ox 04/11/17 20:45 98.5 F 89 24 112/66 96 - Laboratory Lab Results: Lab Results 04/11/17 04/11/17 04/11/17 Range/Units 22:10 22:10 22:10 WBC 9.8 (3.5-10.8) 10^3/ul RBC 4.10 (4.0-5.4) 10^6/ul Hgb 14.5 (14.0-18.0) g/dl Hct 41 L (42-52) % MCV 99 H (80-94) fL MCH 35 H (27-31) pg MCHC 36 (31-36) g/dl RDW 14 (10.5-15) % Plt Count 180 (150-450) 10^3/ul MPV 9 (7.4-10.4) um3 Neut % (Auto) 78.9 (38-83) % Lymph % (Auto) 6.9 L (25-47) % Blaine % (Auto) 12.6 H (1-9) % Eos % (Auto) 0.6 (0-6) % Baso % (Auto) 1.0 (0-2) % Absolute Neuts (auto) 7.7 (1.5-7.7) 10^3/ul Absolute Lymphs (auto) 0.7 L (1.0-4.8) 10^3/ul Absolute Monos (auto) 1.2 H (0-0.8) 10^3/ul Absolute Eos (auto) 0.1 (0-0.6) 10^3/ul Absolute Basos (auto) 0.1 (0-0.2) 10^3/ul Absolute Nucleated RBC 0 10^3/ul Nucleated RBC % 0 INR (Anticoag Therapy) 1.36 H (0.77-1.02) APTT 40.0 H (26.0-36.3) seconds Sodium 127 L (133-145) mmol/L Potassium 3.7 (3.5-5.0) mmol/L Chloride 91 L (101-111) mmol/L Carbon Dioxide 27 (22-32) mmol/L Anion Gap 9 (2-11) mmol/L BUN 16 (6-24) mg/dL Creatinine 0.94 (0.67-1.17) mg/dL Est GFR ( Amer) 102.3 (>60) Est GFR (Non-Af Amer) 79.6 (>60) BUN/Creatinine Ratio 17.0 (8-20) Glucose 105 H (70-100) mg/dL Hemoglobin A1c (4.0-5.6) % Lactic Acid (0.5-2.0) mmol/L Calcium 9.7 (8.6-10.3) mg/dL Total Bilirubin 0.80 (0.2-1.0) mg/dL AST 32 (13-39) U/L ALT 29 (7-52) U/L Alkaline Phosphatase 137 H (34-104) U/L Total Protein 7.2 (6.4-8.9) g/dL Albumin 3.5 (3.2-5.2) g/dL Globulin 3.7 (2-4) g/dL Albumin/Globulin Ratio 0.9 L (1-3) Urine Color Urine Appearance Urine pH (5-9) Ur Specific [place] (1.010-1.030) Urine Protein (Negative) Urine Ketones (Negative) Urine Blood (Negative) Urine Nitrate (Negative) Urine Bilirubin (Negative) Urine Urobilinogen (Negative) Ur Leukocyte Esterase (Negative) Urine Glucose (Negative) 04/11/17 04/11/17 04/11/17 Range/Units 22:10 22:10 22:10 WBC (3.5-10.8) 10^3/ul RBC (4.0-5.4) 10^6/ul Hgb (14.0-18.0) g/dl Hct (42-52) % MCV (80-94) fL MCH (27-31) pg MCHC (31-36) g/dl RDW (10.5-15) % Plt Count (150-450) 10^3/ul MPV (7.4-10.4) um3 Neut % (Auto) (38-83) % Lymph % (Auto) (25-47) % Blaine % (Auto) (1-9) % Eos % (Auto) (0-6) % Baso % (Auto) (0-2) % Absolute Neuts (auto) (1.5-7.7) 10^3/ul Absolute Lymphs (auto) (1.0-4.8) 10^3/ul Absolute Monos (auto) (0-0.8) 10^3/ul Absolute Eos (auto) (0-0.6) 10^3/ul Absolute Basos (auto) (0-0.2) 10^3/ul Absolute Nucleated RBC 10^3/ul Nucleated RBC % INR (Anticoag Therapy) (0.77-1.02) APTT (26.0-36.3) seconds Sodium (133-145) mmol/L Potassium (3.5-5.0) mmol/L Chloride (101-111) mmol/L Carbon Dioxide (22-32) mmol/L Anion Gap (2-11) mmol/L BUN (6-24) mg/dL Creatinine (0.67-1.17) mg/dL Est GFR ( Amer) (>60) Est GFR (Non-Af Amer) (>60) BUN/Creatinine Ratio (8-20) Glucose (70-100) mg/dL Hemoglobin A1c 5.5 (4.0-5.6) % Lactic Acid 2.2 H* (0.5-2.0) mmol/L Calcium (8.6-10.3) mg/dL Total Bilirubin (0.2-1.0) mg/dL AST (13-39) U/L ALT (7-52) U/L Alkaline Phosphatase (34-104) U/L Total Protein (6.4-8.9) g/dL Albumin (3.2-5.2) g/dL Globulin (2-4) g/dL Albumin/Globulin Ratio (1-3) Urine Color Yellow Urine Appearance Clear Urine pH 6.0 (5-9) Ur Specific [place] 1.005 L (1.010-1.030) Urine Protein Negative (Negative) Urine Ketones Trace H (Negative) Urine Blood Negative (Negative) Urine Nitrate Negative (Negative) Urine Bilirubin Negative (Negative) Urine Urobilinogen Negative (Negative) Ur Leukocyte Esterase Negative (Negative) Urine Glucose Negative (Negative) Result Diagrams: 04/13/17 05:53 04/13/17 05:53 Lab Statement: Any lab studies that have been ordered have been reviewed, and results considered in the medical decision making process. - Radiology Toe Xray Radiology Interpretation Completed By: Radiologist - Ill-defined destruction involving the distal pole of the proximal phalanx and middle phalanx of the left small toe. Please correlate to history of traumatic injury, osteomyelitis or or crystalline arthropathy such as gout. ED physician has reviewed this radiology report. - EKG 6937 Cardiac Rate: Other Rate EKG Rhythm: Atrial Fibrillation - at 79BPM EKG Interpretation: no STEMI Lower Extremity Course/Dx - Course Assessment/Plan: This patient is a 67 year old M BIBA to [facility] with a chief complaint of pinky toe injury on left foot since 03/08/17. The patient states he was getting out of bed and hit his toe which caused a small laceration. He has soaked the foot and treated it with antiseptic wash. The patient rates the pain 4/10 in severity. The patient has DM and has neuropathy in the LE. Patient denies fever, diaphoresis, chills, and pain in LE. The patient has a history of A-fib. Toe X-ray reveals, per radiologist, Ill-defined destruction involving the distal pole of the proximal phalanx and. middle phalanx of the left small toe. Please correlate to history of traumatic injury,. Osteomyelitis or or crystalline arthropathy such as gout. Dx of Osteomyelitis of toe and necrosis of toe. Test results with no significant abnormalities except for a lactic acid of 2.2. UA obtained. In the ED course the patient was given IV antibiotics. We discussed patient care with Dr. Nelson and he has agreed to admit the patient. The patient is agreeable with this plan. - Diagnoses Provider Diagnoses: Osteomyelitis of toe of left foot, Necrosis of toe - Physician Notifications Discussed Care Of Patient With: Riky Nelson Time Discussed With Above Provider: 22:53 Instructed by Provider To: Admit As Inpatient Discharge - Discharge Plan Condition: Stable Disposition: ADMITTED TO [facility] The documentation as recorded by the Moo cha Gabriel accurately reflects the service I personally performed and the decisions made by , David Moulton MD.
== END 2017-04-14 16:40 | disposition home or self-care (01) | DRG 617 ==
LOC: ED 20:36 → SSU 23:00
PROVIDERS: ADMIT Internal Medicine; ATTEND Internal Medicine
PROC: 0Y6N0ZF Detachment at Left Foot, Partial 5th Ray, Open Approach (ICD-10-PCS; principal; 2017-04-13 16:30)
DX: E11.69 Type 2 diabetes mellitus with other specified complication (principal); M86.172 Other acute osteomyelitis, left ankle and foot; E11.40 Type 2 diabetes mellitus with diabetic neuropathy, unspecified; I48.91 Unspecified atrial fibrillation; E66.01 Morbid (severe) obesity due to excess calories; L03.116 Cellulitis of left lower limb; Z68.42 Body mass index [BMI] 45.0-49.9, adult; E78.5 Hyperlipidemia, unspecified; I10 Essential (primary) hypertension; N40.0 Benign prostatic hyperplasia without lower urinary tract symptoms; F41.8 Other specified anxiety disorders; W22.8XXA Striking against or struck by other objects, initial encounter; S91.119A Laceration without foreign body of unspecified toe without damage to nail, initial encounter; G47.33 Obstructive sleep apnea (adult) (pediatric); Z82.49 Family history of ischemic heart disease and other diseases of the circulatory system; Z87.891 Personal history of nicotine dependence; Z72.89 Other problems related to lifestyle; Z83.3 Family history of diabetes mellitus; Z88.0 Allergy status to penicillin; Z23 Encounter for immunization; Z79.01 Long term (current) use of anticoagulants
CPT/HCPCS: 36415; 80048; 80053; 81003; 83036; 83605; 85025; 85060; 85610; 85730; 87040; 90732; 93005; 93922; 99212; A9270-GY; G0463; J0744; J2250; J2704; J3370; J3490

== ENCOUNTER → 2017-04-25 14:43 | Emergency (ER) | payer MEDICARE, OTHER ==
[~2017-04-25 14:43] MED LIST: DOXYcycline CAP(*) 100 MG PO ONE; Silver Sulfadiazine 1%* 20 GM TOPICAL ONE
[2017-04-25 16:38] VITALS: BP 116/54
--- NOTE | 2017-05-14 16:57 | ED ---
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 He presents today with a new ulcerated lesion onto the left calcaneus which has been weeping without bleeding. This is likely due to excess moisture around the area from the gauze and poor at home care. The left fifth toe appears to be healing well and is clean dry and intact without weeping, bleeding or other signs of infection. He continues to have some at home care, although not every day. He is followed in the wound care clinic by Dr. Rojas. He will see Dr. Rojas this Wednesday. He states his diabetes is controlled with medications and he continues to take his medications daily. He lives at home with his . States he is having trouble getting around well since he is unable to walk without assistance. - History of Current Complaint Hx Obtained From: Patient Skin Exposure Onset/Duration: Hours Ago Timing: Constant Onset Severity: Moderate Current Severity: Moderate Pain Intensity: 2 Pain Scale Used: 0-10 Numeric Skin Location: Foot - Left heel Aggravating Symptom(s): Nothing Associated Signs & Symptoms: Negative - Additional Pertinent History Primary Care Physician: ALEXSANDRA - Allergy/Home Medications Allergies/Adverse Reactions: Allergies Allergy/AdvReac Type Severity Reaction Status Date / Time Penicillins AdvReac Intermediate GI Upset Verified 05/14/17 10:27 PMH/Surg Hx/FS Hx/Imm Hx Previously Healthy: No - see below Endocrine/Hematology History: Reports: Hx Blood Transfusions - 1975 had blood transfusion, Hx Diabetes Denies: Hx Anticoagulant Therapy, Hx Blood Disorders, Hx Bone Marrow Disease , Hx Systemic Lupus Erythematosus, Hx Sickle Cell Disease, Hx Thyroid Disease, Hx Anemia, Hx Unexplained Bleeding, Other Endocrine/Hematological Disorders Cardiovascular History: Reports: Hx Atrial Fibrillation, Hx Hypertension, Other Cardiovascular Problems/Disorders - A- Fib Denies: Hx Aneurysm, Hx Angina, Hx Angioplasty, Hx Auto Implanted Cardiovert Defib, Hx Cardiac Arrest, Hx Cardiomegaly, Hx Congestive Heart Failure, Hx Coronary Artery Disease, Hx Deep Vein Thrombosis, Hx Embolism, Hx Hypercholesterolemia, Hx Pacemaker/ICD, Hx Syncope, Hx Valvular Heart Disease Respiratory History: Reports: Hx Chronic Bronchitis, Hx Sleep Apnea Denies: Hx Asthma, Hx Chronic Obstructive Pulmonary Disease (COPD), Hx Cystic Fibrosis, Hx Lung Cancer, Hx Pleural Effusion, Hx Pneumonia, Hx Seasonal Allergies GI History: Reports: Hx Hiatal Hernia - x3 had surgery Denies: Hx Gall Bladder Disease, Hx Gastroesophageal Reflux Disease, Hx Jaundice, Hx Obstructive Bowel, Hx Ileostomy, Hx Pyloric Stenosis, Hx Ulcer History: Reports: Hx Benign Prostatic Hyperplasia Denies: Hx Dialysis, Hx Kidney Infection, Hx Kidney Stones Musculoskeletal History: Reports: Hx Back Problems - low back pain occassionally , Hx Orthopedic Injury - broke right leg from knee down had surgery here 2010, Other Musculoskeletal History - 3 inguinal hernias Denies: Hx Arthritis, Hx Fibromyalgia, Hx Gout, Hx Osteoporosis, Hx Scoliosis , Hx Tendonitis Sensory History: Reports: Hx Contacts or Glasses - reading Denies: Hx Cataracts, Hx Glaucoma, Hx Hearing Aid Opthamlomology History: Reports: Hx Contacts or Glasses - reading Denies: Hx Cataracts, Hx Glaucoma Neurological History: Reports: Hx Nerve Disease - diabetic nueropathy Denies: Hx Dementia, Hx Developmental Delay, Hx Headaches, Hx Migraine, Hx Seizures, Hx Spinal Cord Injury, Hx Transient Ischemic Attacks (TIA), Other Neuro Impairments/Disorders Psychiatric History: Reports: Hx Anxiety, Hx Depression Denies: Hx Attention Deficit Hyperactivity Disorder, Hx Eating Disorder, Hx Panic Disorder, Hx Inpatient Treatment, Hx Schizophrenia, Hx Bipolar Disorder, Hx Suicide Attempt, Hx Substance Abuse - Cancer History Hx Chemotherapy: No - Surgical History Surgery Procedure, Year, and Place: Three inguinal hernia repairs. Tonsillectomy Hx Anesthesia Reactions: No - Immunization History Hx Pertussis Vaccination: No Immunizations Up to Date: Unable to Obtain/Confirm Infectious Disease History: No Infectious Disease History: Denies: Hx Hepatitis, Hx Human Immunodeficiency Virus (HIV), Hx Tuberculosis , History Other Infectious Disease, Traveled Outside the [place] in Last 30 Days - Family History Known Family History: Positive: Cardiac Disease - Father of [place] at age 52, Diabetes - Social History Occupation: Employed Full-time Lives: With Family Alcohol Use: None Alcohol Amount: Pt reports 1-2 bottles of wine. Hx Substance Use: No Substance Use Type: Reports: None Hx Tobacco Use: No Smoking Status (MU): Former Smoker Type: Cigarettes Have You Smoked in the Last Year: No Review of Systems Constitutional: Negative Negative: Fever, Chills, Fatigue, Skin Diaphoresis Eyes: Negative Respiratory: Negative Positive: no symptoms reported, see HPI Musculoskeletal: Negative Positive: Other - left heel ulceration Neurological: Negative Psychological: Normal All Other Systems Reviewed And Are Negative: Yes Physical Exam Vital Signs On Initial Exam: Initial Vitals Temp Pulse Resp BP Pulse Ox 97.5 F 94 17 103/50 96 05/11/17 13:52 05/11/17 13:52 05/11/17 13:52 05/11/17 13:52 05/11/17 13:52 Appearance: Positive: Well-Nourished, Obese Skin: Positive: Skin Color Reflects Adequate Perfusion, Other - Left heel ulceration and status post left little toe amputation with surrounding erythema , but no signs of infection Head/Face: Positive: Normal Head/Face Inspection Eyes: Positive: EOMI, NADIR Neck: Positive: Supple Respiratory/Lung Sounds: Positive: Clear to Auscultation, Breath Sounds Present Cardiovascular: Positive: Pulses are Symmetrical in both Upper and Lower Extremities Neurological: Positive: Sensory/Motor Intact, Alert, Oriented to Person Place, Time Psychiatric: Positive: Normal, Affect/Mood Appropriate Diagnostics - Vital Signs Vital Signs Temp Pulse Resp BP Pulse Ox 05/14/17 08:00 18 94 05/14/17 05:51 98.8 F 107 18 138/73 94 05/14/17 02:35 20 05/13/17 22:24 20 05/13/17 18:17 18 95 05/13/17 16:00 98.3 F 80 18 106/66 95 05/13/17 09:51 97 05/13/17 08:00 97 05/13/17 05:31 98.4 F 87 20 113/69 97 05/13/17 03:08 18 05/13/17 01:11 18 05/12/17 23:40 95 05/12/17 23:39 98.6 F 109 20 146/84 95 05/12/17 23:30 80 05/12/17 21:50 94 05/12/17 18:10 18 96 05/12/17 16:04 97.4 F 91 18 110/63 96 05/12/17 16:00 97 05/12/17 10:10 92 05/12/17 09:53 92 05/12/17 05:14 98.0 F 103 20 138/76 94 05/12/17 05:10 78 05/12/17 00:23 20 95 05/12/17 00:21 98.9 F 108 20 128/70 95 05/11/17 15:46 98.3 F 94 24 116/63 96 05/11/17 14:02 97.5 F 94 18 103/50 95 05/11/17 13:52 97.5 F 94 17 103/50 96 - Laboratory Lab Results: Lab Results 05/11/17 05/11/17 05/12/17 Range/Units 16:43 20:52 06:48 WBC 10.9 H (3.5-10.8) 10^3/ul RBC 3.52 L (4.0-5.4) 10^6/ul Hgb 11.9 L (14.0-18.0) g/dl Hct 35 L (42-52) % MCV 99 H (80-94) fL MCH 34 H (27-31) pg MCHC 34 (31-36) g/dl RDW 15 (10.5-15) % Plt Count 301 (150-450) 10^3/ul MPV 10 (7.4-10.4) um3 Neut % (Auto) 72.6 (38-83) % Lymph % (Auto) 9.6 L (25-47) % Armstrong % (Auto) 11.0 H (1-9) % Eos % (Auto) 5.5 (0-6) % Baso % (Auto) 1.3 (0-2) % Absolute Neuts (auto) 7.9 H (1.5-7.7) 10^3/ul Absolute Lymphs (auto) 1.0 (1.0-4.8) 10^3/ul Absolute Monos (auto) 1.2 H (0-0.8) 10^3/ul Absolute Eos (auto) 0.6 (0-0.6) 10^3/ul Absolute Basos (auto) 0.1 (0-0.2) 10^3/ul Absolute Nucleated RBC 0 10^3/ul Nucleated RBC % 0.1 Sodium (133-145) mmol/L Potassium (3.5-5.0) mmol/L Chloride (101-111) mmol/L Carbon Dioxide (22-32) mmol/L Anion Gap (2-11) mmol/L BUN (6-24) mg/dL Creatinine (0.67-1.17) mg/dL Est GFR ( Amer) (>60) Est GFR (Non-Af Amer) (>60) BUN/Creatinine Ratio (8-20) Glucose (70-100) mg/dL POC Glucose (mg/dL) 135 H 160 H (70-100) mg/dL Calcium (8.6-10.3) mg/dL Total Bilirubin (0.2-1.0) mg/dL Direct Bilirubin (0.03-0.18) mg/dL Indirect Bilirubin (0.3-1.0) mg/dL AST (13-39) U/L ALT (7-52) U/L Alkaline Phosphatase (34-104) U/L Total Protein (6.4-8.9) g/dL Albumin (3.2-5.2) g/dL Globulin (2-4) g/dL Albumin/Globulin Ratio (1-3) 05/12/17 05/12/17 05/12/17 Range/Units 06:48 07:34 11:57 WBC (3.5-10.8) 10^3/ul RBC (4.0-5.4) 10^6/ul Hgb (14.0-18.0) g/dl Hct (42-52) % MCV (80-94) fL MCH (27-31) pg MCHC (31-36) g/dl RDW (10.5-15) % Plt Count (150-450) 10^3/ul MPV (7.4-10.4) um3 Neut % (Auto) (38-83) % Lymph % (Auto) (25-47) % Armstrong % (Auto) (1-9) % Eos % (Auto) (0-6) % Baso % (Auto) (0-2) % Absolute Neuts (auto) (1.5-7.7) 10^3/ul Absolute Lymphs (auto) (1.0-4.8) 10^3/ul Absolute Monos (auto) (0-0.8) 10^3/ul Absolute Eos (auto) (0-0.6) 10^3/ul Absolute Basos (auto) (0-0.2) 10^3/ul Absolute Nucleated RBC 10^3/ul Nucleated RBC % Sodium 136 (133-145) mmol/L Potassium 4.1 (3.5-5.0) mmol/L Chloride 102 (101-111) mmol/L Carbon Dioxide 30 (22-32) mmol/L Anion Gap 4 (2-11) mmol/L BUN 12 (6-24) mg/dL Creatinine 0.76 (0.67-1.17) mg/dL Est GFR ( Amer) 130.8 (>60) Est GFR (Non-Af Amer) 101.7 (>60) BUN/Creatinine Ratio 15.8 (8-20) Glucose 97 (70-100) mg/dL POC Glucose (mg/dL) 121 H 149 H (70-100) mg/dL Calcium 9.0 (8.6-10.3) mg/dL Total Bilirubin 0.70 (0.2-1.0) mg/dL Direct Bilirubin (0.03-0.18) mg/dL Indirect Bilirubin (0.3-1.0) mg/dL AST 133 H (13-39) U/L ALT 84 H (7-52) U/L Alkaline Phosphatase 211 H (34-104) U/L Total Protein 6.5 (6.4-8.9) g/dL Albumin 2.9 L (3.2-5.2) g/dL Globulin 3.6 (2-4) g/dL Albumin/Globulin Ratio 0.8 L (1-3) 05/12/17 05/12/17 05/13/17 Range/Units 16:49 21:02 07:19 WBC (3.5-10.8) 10^3/ul RBC (4.0-5.4) 10^6/ul Hgb (14.0-18.0) g/dl Hct (42-52) % MCV (80-94) fL MCH (27-31) pg MCHC (31-36) g/dl RDW (10.5-15) % Plt Count (150-450) 10^3/ul MPV (7.4-10.4) um3 Neut % (Auto) (38-83) % Lymph % (Auto) (25-47) % Armstrong % (Auto) (1-9) % Eos % (Auto) (0-6) % Baso % (Auto) (0-2) % Absolute Neuts (auto) (1.5-7.7) 10^3/ul Absolute Lymphs (auto) (1.0-4.8) 10^3/ul Absolute Monos (auto) (0-0.8) 10^3/ul Absolute Eos (auto) (0-0.6) 10^3/ul Absolute Basos (auto) (0-0.2) 10^3/ul Absolute Nucleated RBC 10^3/ul Nucleated RBC % Sodium (133-145) mmol/L Potassium (3.5-5.0) mmol/L Chloride (101-111) mmol/L Carbon Dioxide (22-32) mmol/L Anion Gap (2-11) mmol/L BUN (6-24) mg/dL Creatinine (0.67-1.17) mg/dL Est GFR ( Amer) (>60) Est GFR (Non-Af Amer) (>60) BUN/Creatinine Ratio (8-20) Glucose (70-100) mg/dL POC Glucose (mg/dL) 125 H 141 H 120 H (70-100) mg/dL Calcium (8.6-10.3) mg/dL Total Bilirubin (0.2-1.0) mg/dL Direct Bilirubin (0.03-0.18) mg/dL Indirect Bilirubin (0.3-1.0) mg/dL AST (13-39) U/L ALT (7-52) U/L Alkaline Phosphatase (34-104) U/L Total Protein (6.4-8.9) g/dL Albumin (3.2-5.2) g/dL Globulin (2-4) g/dL Albumin/Globulin Ratio (1-3) 05/13/17 05/13/17 05/13/17 Range/Units 12:01 16:20 20:11 WBC (3.5-10.8) 10^3/ul RBC (4.0-5.4) 10^6/ul Hgb (14.0-18.0) g/dl Hct (42-52) % MCV (80-94) fL MCH (27-31) pg MCHC (31-36) g/dl RDW (10.5-15) % Plt Count (150-450) 10^3/ul MPV (7.4-10.4) um3 Neut % (Auto) (38-83) % Lymph % (Auto) (25-47) % Armstrong % (Auto) (1-9) % Eos % (Auto) (0-6) % Baso % (Auto) (0-2) % Absolute Neuts (auto) (1.5-7.7) 10^3/ul Absolute Lymphs (auto) (1.0-4.8) 10^3/ul Absolute Monos (auto) (0-0.8) 10^3/ul Absolute Eos (auto) (0-0.6) 10^3/ul Absolute Basos (auto) (0-0.2) 10^3/ul Absolute Nucleated RBC 10^3/ul Nucleated RBC % Sodium (133-145) mmol/L Potassium (3.5-5.0) mmol/L Chloride (101-111) mmol/L Carbon Dioxide (22-32) mmol/L Anion Gap (2-11) mmol/L BUN (6-24) mg/dL Creatinine (0.67-1.17) mg/dL Est GFR ( Amer) (>60) Est GFR (Non-Af Amer) (>60) BUN/Creatinine Ratio (8-20) Glucose (70-100) mg/dL POC Glucose (mg/dL) 138 H 109 H 154 H (70-100) mg/dL Calcium (8.6-10.3) mg/dL Total Bilirubin (0.2-1.0) mg/dL Direct Bilirubin (0.03-0.18) mg/dL Indirect Bilirubin (0.3-1.0) mg/dL AST (13-39) U/L ALT (7-52) U/L Alkaline Phosphatase (34-104) U/L Total Protein (6.4-8.9) g/dL Albumin (3.2-5.2) g/dL Globulin (2-4) g/dL Albumin/Globulin Ratio (1-3) 05/14/17 05/14/17 05/14/17 Range/Units 06:49 07:16 11:46 WBC (3.5-10.8) 10^3/ul RBC (4.0-5.4) 10^6/ul Hgb (14.0-18.0) g/dl Hct (42-52) % MCV (80-94) fL MCH (27-31) pg MCHC (31-36) g/dl RDW (10.5-15) % Plt Count (150-450) 10^3/ul MPV (7.4-10.4) um3 Neut % (Auto) (38-83) % Lymph % (Auto) (25-47) % Armstrong % (Auto) (1-9) % Eos % (Auto) (0-6) % Baso % (Auto) (0-2) % Absolute Neuts (auto) (1.5-7.7) 10^3/ul Absolute Lymphs (auto) (1.0-4.8) 10^3/ul Absolute Monos (auto) (0-0.8) 10^3/ul Absolute Eos (auto) (0-0.6) 10^3/ul Absolute Basos (auto) (0-0.2) 10^3/ul Absolute Nucleated RBC 10^3/ul Nucleated RBC % Sodium (133-145) mmol/L Potassium (3.5-5.0) mmol/L Chloride (101-111) mmol/L Carbon Dioxide (22-32) mmol/L Anion Gap (2-11) mmol/L BUN (6-24) mg/dL Creatinine (0.67-1.17) mg/dL Est GFR ( Amer) (>60) Est GFR (Non-Af Amer) (>60) BUN/Creatinine Ratio (8-20) Glucose (70-100) mg/dL POC Glucose (mg/dL) 107 H 124 H (70-100) mg/dL Calcium (8.6-10.3) mg/dL Total Bilirubin 0.70 (0.2-1.0) mg/dL Direct Bilirubin 0.40 H (0.03-0.18) mg/dL Indirect Bilirubin 0.3 (0.3-1.0) mg/dL AST 166 H (13-39) U/L ALT 117 H (7-52) U/L Alkaline Phosphatase 260 H (34-104) U/L Total Protein 6.8 (6.4-8.9) g/dL Albumin 2.8 L (3.2-5.2) g/dL Globulin 4.0 (2-4) g/dL Albumin/Globulin Ratio 0.7 L (1-3) Lab Statement: Any lab studies that have been ordered have been reviewed, and results considered in the medical decision making process. Course/Dx - Course Course Of Treatment: During the course of treatment I have evaluated his ulcerated left calcaneal and left toe status post amputation. I have asked Dr. Painting to come see the wound who agrees with the assessment that silver sulfadiazine should be used with a gauze wrap. He should unwrap daily to leave open to air for at least one hour and reapply the medication with the cause. He is to elevate the legs as much as possible. Labs not obtained on this visit as patient denies any systemic illness, feeling fatigued, fevers or other. He will follow-up with Dr. Rojas this Wednesday. Nothing further at this time. Discharge - Discharge Plan Condition: Stable Disposition: HOME Patient Education Materials: Chronic Wound Care (ED) Referrals: Ramez Akins MD [Primary Care Provider] - Additional Instructions: Continue with silvadene and bandages until follow up I have given you doxycycline 100mg twice daily for 10 days to prevent infection Leave open to air for an hour per day to assure the area is not worsening with moisture Follow up with Dr. Rojas as scheduled Follow up with podiatry as scheduled For any worsening symptoms, or you develop a fever - sweats or chills -return to the ED immediately
== END | disposition home or self-care (01) ==
LOC: ED 14:43
DX: E11.621 Type 2 diabetes mellitus with foot ulcer (principal); Z89.429 Acquired absence of other toe(s), unspecified side; Z86.79 Personal history of other diseases of the circulatory system; Z87.891 Personal history of nicotine dependence
CPT/HCPCS: 99282; A9270-GY

== ENCOUNTER 2017-04-30 13:29 | Inpatient (IN) | payer MEDICARE, OTHER ==
[2017-04-30] MEDS ORDERED: Acetaminophen TAB* 325 MG PO PRN (13:53)
[2017-04-30] MEDS ORDERED: Heparin VIAL(*) 5000 UNITS/ML VIAL (FIVE THOUSAND) SUBCUT SCH (14:00)
[2017-04-30 15:14] LABS: ABS Basophils 0.1 10^3/ul (0-0.2); ABS Eosinophils 0.2 10^3/ul (0-0.6); ABS Lymphocytes 0.8 10^3/ul (1.0-4.8); ABS Monocytes 1.4 10^3/ul (0-0.8); ABS Neutrophils 4.5 10^3/ul (1.5-7.7); ABS Nucleated RBC 0 10^3/ul; Eosinophil % 2.4 % (0-6); Hematocrit 38 % (42-52); Hemoglobin 12.8 g/dl (14.0-18.0); Mean Corpuscular HGB Conc 34 g/dl (31-36); Mean Corpuscular Hemoglobin 34 pg (27-31); Mean Corpuscular Volume 99 fL (80-94); Mean Platelet Volume 9 um3 (7.4-10.4); Nucleated Red Blood Cells % 0.1; Platelet Count 156 10^3/ul (150-450); Red Blood Count 3.83 10^6/ul (4.0-5.4); Red Cell Distribution Width 14 % (10.5-15)
[2017-04-30 15:27] LABS: INR 1.4 (0.77-1.02)
[2017-04-30] MEDS: LORazepam TAB(*) 1 MG PO SCH ×3 (15:58→23:36)
[2017-04-30] MEDS ORDERED: Vancomycin per Pharmacy* NOTE FOLLOW UP PRN (16:01)
[2017-04-30] MEDS ORDERED: Vancomycin(*) 2,000 MG in NS 0.9% 500 ML* 500 ML IVPB ONE (16:15)
--- NOTE | 2017-04-30 20:07 | HP ---
CC: Dr. Akins; Dr. Rojas * ADMISSION HISTORY AND PHYSICAL: DATE OF ADMISSION: 04/30/17 PRIMARY CARE PROVIDER: Dr. Akins. SOURCE OF INFORMATION: History obtained from interview with the patient and review of past medical records, discussion with Dr. Rojas. RELIABILITY: Good. CHIEF COMPLAINT: New foot ulcers and erythema. HISTORY OF PRESENT ILLNESS: This is a 67-year-old man, current alcohol abuse, recent hospital [place] [facility] [place] 04[place]14[place]17 with osteomyelitis, status post left 5th toe ray amputation by Dr. Rojas on 04/13/17 without complications. He returned home and has continued to drink approximately 2 bottles of wine per day. He is limited in his self-care secondary to his morbid obesity, continued alcoholism, limited mobility. He returned to the emergency room on 04/25/17 after developing blister at left heel after it ruptured. He was discharged, continued with doxycycline and followup with wound care clinic with Dr. Rojas. He was seen in the wound care clinic today, 04/30/[address] Rojas, found worsening partial thickness wound involving majority of his left heel, potentially developing cellulitis around left 5th amputation site. Consultation was requested for medicine service to evaluate foot and the patient for potential admission. Seen by this author. This author saw the patient in the wound care clinic with his at bedside. He indicates he is still ambulating on his foot, has difficulty taking care of at home. His indicates she tries to assist with the wound care "at the best of my ability." However, the integrity of his known wounds have continued to deteriorate and he has developed new ulcers on his heel in very short period of time since last seen in the wound care clinic 1 week prior. Otherwise, denies any fevers, chills, night sweats, chest pain, shortness of breath, nausea, vomiting. He feels his appetite has been decreased and his energy has been decreased, but he has no headache, change in his vision, or other skin changes. He continues to drink 2 bottles of wine per day. He denies previous withdrawal symptoms while hospitalized; however, does note anxiety at this time and is noted to be tremulous. PAST MEDICAL HISTORY: Includes: 1. Types 2 diabetes; however, his hemoglobin A1c on 04/11/17 was noted to be 5.5. 2. Hypertension. 3. Hyperlipidemia. 4. BPH. 5. Depression. 6. Anxiety. 7. Suspected sleep apnea. 8. Morbid obesity. 9. Atrial fibrillation, on Xarelto. MEDICATIONS: 1. Amlodipine 5 mg daily. 2. Tamsulosin 0.4 mg daily. 3. Rivaroxaban 20 mg daily. 4. Multivitamin 1 tab daily. 5. Metoprolol succinate 100 mg daily. 6. Diazepam 5 mg 3 times a day as needed. 7. Citalopram 20 mg daily. 8. Atorvastatin 20 mg at bedtime. 9. Combination of losartan and hydrochlorothiazide 100/25 one tab daily. 10. He has been continuing doxycycline 100 mg 3 times a day after seen in the emergency room on 04/25/17. FAMILY HISTORY: CAD in his father. SOCIAL HISTORY: Quit smoking 40 years prior with 10 to 15 years pack-year prior to that. He drinks 2 bottles of wine per day. Lives with his . Denies illicits. REVIEW OF SYSTEMS: As per HPI, otherwise all other systems negative. PHYSICAL EXAMINATION GENERAL: Obese man, sitting up on an exam table. He is interactive. He is in no apparent distress. His speech is fluent. VITAL SIGNS: Blood pressure 133/88, respiratory rate is 20, pulse 92, 100% on room air, T-max 98 degrees Fahrenheit. HEENT: His oropharynx is clear. He has moist mucous membranes. Sclerae are anicteric. LUNGS: Clear. HEART: Regular rate and rhythm. ABDOMEN: Obese, soft, nontender, nondistended. EXTREMITIES: Warm. Tense edema of lower extremities. He has 3 wounds, one at the left 5th toe measuring 7 x 1.2 x 0.8, next one at the left calcaneus measuring 6 x 8 x 0.1 and final wound on the plantar aspect of his left foot measuring 4 x 4 x 0.1. NEUROLOGIC: He has no apparent agitation, no depression. Reported anxiety. LABORATORY DATA: Labs are still pending except for CBC notable for a hemoglobin of 12.8, platelets 157, and white blood cell count of 7.0. ASSESSMENT AND PLAN: This is a 67-year-old man, recent diagnosis of osteomyelitis status post great toe amputation in the beginning of this month, who has had progressive decline in his wound site integrity as well as the rapid development of new and worrisome looking ulcers on his left foot concerning for a development of cellulitis with additional concern for potential rapid progression to necrotic foot wound. 1. Cellulitis. Vancomycin 1500 mg now, then dosing per pharmacy. 2. Lower extremity ulcers. Dr. Rojas or the wound care or one of his team will see the patient. We will hospitalize, advised on additional wound care. Of great importance would be keep the leg elevated. We will wrap his leg from the ankle to 6 inches above the knee on the left to help manage the profound edema. 3. Type 2 diabetes, diet controlled. Hemoglobin A1c less than 6. 4. Hypertension. Continue losartan, hydrochlorothiazide, metoprolol, and Norvasc. 5. Atrial fibrillation. Continue metoprolol and rivaroxaban. 6. Hyperlipidemia. Continue atorvastatin. 7. Alcohol abuse. Counseled on cessation. Currently, slightly tremulous and anxious. Initiate WAM with p.o. Ativan. 8. DVT prophylaxis. Rivaroxaban. [id number]/[facility] #: [id number] MTDD
[2017-04-30] MEDS: Docusate CAP* 100 MG PO SCH (21:20)
[2017-04-30] MEDS: Atorvastatin* 20 MG TAB PO SCH (21:20)
[2017-04-30] MEDS: Senna TAB PO SCH (21:20)
[2017-04-30] MEDS: Metoprolol Succinate XL TAB* 100 MG PO SCH (21:50)
[2017-04-30] MEDS: Losartan TAB* 25 MG PO SCH (21:50)
[2017-04-30] MEDS: Multivitamins/Minerals TAB PO SCH (21:50)
[2017-04-30] MEDS: Rivaroxaban TAB(*) 20 MG TAB PO SCH (21:52)
[2017-04-30] MEDS: amLODIPine TAB* 5 MG PO SCH (21:52)
[2017-04-30] MEDS: Citalopram TAB* 20 MG PO SCH (21:53)
[2017-04-30] MEDS: Thiamine TAB* 100 MG TAB PO SCH (21:53)
[2017-04-30] MEDS: Tamsulosin CAP* 0.4 MG PO SCH (21:53)
[2017-04-30] MEDS ORDERED: Hydrochlorothiazide TAB* 25 MG PO SCH (22:00)
[2017-05-01] MEDS: LORazepam TAB(*) 1 MG PO SCH ×6 (01:02→23:25)
[2017-05-01] MEDS: Vancomycin(*) 1,500 MG in NS 0.9% 250 ML* 250 ML IVPB SCH ×2 (05:30→17:36)
--- NOTE | 2017-05-01 07:12 | PN ---
Subjective Date of Service: 05/01/17 Interval History: Pt is feeling lousy this AM. He states he did not sleep well last night. He denies any pain. No SOB. No diarrhea. Objective Active Medications: Amlodipine Besylate (Norvasc Tab*) 5 mg PO 2100 [facility] Last Admin: 04/30/17 21:52 Dose: 5 mg Atorvastatin Calcium (Lipitor*) 20 mg PO BEDTIME [facility] Last Admin: 04/30/17 21:20 Dose: 20 mg Citalopram Hydrobromide (Celexa Tab*) 20 mg PO 2100 [facility] Last Admin: 04/30/17 21:53 Dose: 20 mg Docusate Sodium (Colace Cap*) 100 mg PO BID [facility] Last Admin: 04/30/17 21:20 Dose: 100 mg Vancomycin HCl 1,500 mg/ (Sodium Chloride) 250 mls @ 166.667 mls/hr IVPB Q12H [facility] Last Admin: 05/01/17 05:30 Dose: 166.667 mls/hr Cefepime HCl 1 gm/ Sodium (Chloride) 50 mls @ 100 mls/hr IVPB Q12H [facility] Lorazepam (Ativan Tab(*)) 0 - 6 mg PO .PER [facility] PROTOCOL [facility] PRN Reason: Protocol Last Admin: 05/01/17 05:30 Dose: 2 mg Losartan Potassium (Cozaar Tab*) 100 mg PO 2100 [facility] Last Admin: 04/30/17 21:50 Dose: 100 mg Metoprolol Succinate (Toprol Xl Tab*) 100 mg PO 2100 [facility] Last Admin: 04/30/17 21:50 Dose: 100 mg Metronidazole (Flagyl Tab*) 500 mg PO BID [facility] Multivitamins/Minerals (Theragran/Minerals Tab*) 1 tab PO 2100 [facility] Last Admin: 04/30/17 21:50 Dose: 1 tab Pharmacy Consult (Vancomycin Per Pharmacy*) 1 note FOLLOW UP . PRN PRN Reason: PER PROTOCOL Pharmacy Profile Note (Vancomycin Trough Check) 1 note FOLLOW UP 0530 ONE Stop: 05/02/17 05:31 Rivaroxaban (Xarelto(*)) 20 mg PO 2100 [facility] Last Admin: 04/30/17 21:52 Dose: 20 mg Senna (Senokot Tab*) 1 tab PO BID [facility] Last Admin: 04/30/17 21:20 Dose: 1 tab Tamsulosin HCl (Flomax Cap*) 0.4 mg PO 2099 [facility] Last Admin: 04/30/17 21:53 Dose: 0.4 mg Thiamine HCl (Vitamin B-1 Tab*) 100 mg PO 2100 [facility] Last Admin: 04/30/17 21:53 Dose: 100 mg Vital Signs - 8 hr 04/30/17 04/30/17 05/01/17 23:24 23:36 01:02 Temperature 98.1 F Pulse Rate 111 Respiratory 22 18 22 Rate Blood Pressure 157/61 (mmHg) O2 Sat by Pulse 95 Oximetry 05/01/17 05/01/17 05/01/17 02:09 03:00 03:03 Temperature 97.5 F Pulse Rate 113 Respiratory 20 24 24 Rate Blood Pressure 150/86 (mmHg) O2 Sat by Pulse 93 Oximetry 05/01/17 05/01/17 05/01/17 03:06 05:00 05:30 Temperature Pulse Rate Respiratory 24 20 20 Rate Blood Pressure (mmHg) O2 Sat by Pulse Oximetry 05/01/17 06:04 Temperature Pulse Rate Respiratory 20 Rate Blood Pressure (mmHg) O2 Sat by Pulse Oximetry Oxygen Devices in Use Now: None Appearance: Super morbidly obese male sitting in a recliner, NAD Eyes: No Scleral Icterus Ears/Nose/Mouth/Throat: Mucous Membranes Moist Respiratory: Symmetrical Chest Expansion and Respiratory Effort, Clear to Auscultation - diminished breath sounds in all lung wilburn Cardiovascular: NL Sounds; No Murmurs; No JVD, RRR, - - massive anasarca to B/L LE Abdominal: NL Sounds; No Tenderness; No Distention - obese Extremities: No Clubbing, Cyanosis, - - s/p L 5th toe amputation Skin: - - chronic venous stasis changes to B/L LE, thickened markedly edematous skin to B/L lower legs, erythematous without significant warmth; R lower medial leg with area of crusted serous fluid, L heel with partial thickness wound involving most of the heel, L 5th toe/ray amputation site with non-healed wound with slight slough and serosanguinous drainage Neurological: - - drowsy, poor historian Result Diagrams: 04/30/17 14:50 04/30/17 14:50 Assess/Plan/Problems-Billing Mr Luevano is a 67 yo M who has a h/o afib, suspected MOOKIE, type II DM, HTN, HLD , alcoholism and anxiety/depression who presented to the wound center for routine follow up and was found to have a worsened L heel wound in addition to possible cellulitis about the L 5th toe/ray amputation site. - Patient Problems (1) Cellulitis of foot without toes, left Current Visit: Yes Status: Acute Code(s): L03.116 - CELLULITIS OF LEFT LOWER LIMB SNOMED Code(s): 910994724 Comment: The patient was started on vancomycin yesterday. Will add cefepime and flagyl given his h/o DM for gram negative and anaerobic coverage. His feet and lower legs are erythematous and does not seem more so at the amputation site. Will monitor drainage from the amputation site. Surgery to follow up today. (2) Stage II pressure ulcer of left heel Current Visit: Yes Status: Acute Code(s): L89.622 - PRESSURE ULCER OF LEFT HEEL, STAGE 2 SNOMED Code(s): 748325726 Comment: I suspect the blister and subsequent partial thickness wound on the heel is secondary to pressure. Encourage pressure relieving measures. Will need to discuss with surgery recommendations for heel wound care. (3) Hyponatremia Current Visit: Yes Status: Acute Code(s): E87.1 - HYPO-OSMOLALITY AND HYPONATREMIA SNOMED Code(s): 09774420 Comment: The patient has been hyponatremic over the last several reads. I question if this may be combination of HCTZ use and alcoholism. Will stop the HCTZ and monitor his Na level. (4) Alcoholism Current Visit: Yes Status: Acute Code(s): F10.20 - ALCOHOL DEPENDENCE, UNCOMPLICATED SNOMED Code(s): 4975180 Comment: The patient reportedly drinks 2 bottles of wine per day. The patient has been scoring routinely on the WAM protocol. Will continue to monitor for ongoing signs of withdrawal. Continue WAM monitoring/ativan administration. (5) Atrial fibrillation Current Visit: Yes Status: Chronic Code(s): I48.91 - UNSPECIFIED ATRIAL FIBRILLATION SNOMED Code(s): 71051910 Comment: HR is controlled. Will continue metoprolol at home dose. Continue xarelto. (6) HTN (hypertension) Current Visit: Yes Status: Chronic Code(s): I10 - ESSENTIAL (PRIMARY) HYPERTENSION SNOMED Code(s): 80125669 Comment: BP is mildly elevated. Will continue to monitor on metoprolol, amlodipine and losartan. HCTZ being stopped due to hyponatremia. If he becomes more hypertensive will need to start additional medication. (7) Type 2 diabetes mellitus Current Visit: Yes Status: Chronic Comment: The patient is diet controlled. Will monitor sugars with AM labs. Most recent A1c was 5.5% on 04/11/17. (8) Depression with anxiety Current Visit: Yes Status: Chronic Comment: Continue citalopram. (9) BPH (benign prostatic hyperplasia) Current Visit: Yes Status: Chronic Code(s): N40.0 - BENIGN PROSTATIC HYPERPLASIA WITHOUT LOWER URINRY TRACT SYMP SNOMED Code(s): 361120902 Comment: Continue flomax. (10) HLD (hyperlipidemia) Current Visit: Yes Status: Chronic Code(s): E78.5 - HYPERLIPIDEMIA, UNSPECIFIED SNOMED Code(s): 79729120 Comment: Continue lipitor. (11) DVT prophylaxis Current Visit: Yes Status: Acute Code(s): TMT1968 - SNOMED Code(s): 525873272 Comment: raymond (12) Full code status Current Visit: Yes Status: Acute Code(s): Z78.9 - OTHER SPECIFIED HEALTH STATUS SNOMED Code(s): 829208557
[2017-05-01] MEDS: Senna TAB PO SCH ×2 (07:43→19:57)
[2017-05-01] MEDS: Docusate CAP* 100 MG PO SCH ×2 (07:44→19:57)
[2017-05-01] MEDS: Cefepime 1 GM in Dextrose(*) 1 GM/50 ML BAG IV SCH ×2 (08:15→20:03)
[2017-05-01] MEDS: metroNIDAZOLE TAB* 250 MG PO SCH ×2 (08:49→20:08)
[2017-05-01 08:54] LABS: EGFR Non-African American 115.6 (>60)
[2017-05-01] MEDS ORDERED: Losartan TAB* 25 MG PO SCH (09:00)
[2017-05-01] MEDS: Losartan TAB* 25 MG PO SCH (20:09)
[2017-05-01] MEDS: Tamsulosin CAP* 0.4 MG PO SCH (20:10)
[2017-05-01] MEDS: amLODIPine TAB* 5 MG PO SCH (20:10)
[2017-05-01] MEDS: Metoprolol Succinate XL TAB* 100 MG PO SCH (20:10)
[2017-05-01] MEDS: Atorvastatin* 20 MG TAB PO SCH (20:11)
[2017-05-01] MEDS: Citalopram TAB* 20 MG PO SCH (20:11)
[2017-05-01] MEDS: Multivitamins/Minerals TAB PO SCH (20:11)
[2017-05-01] MEDS: Rivaroxaban TAB(*) 20 MG TAB PO SCH (20:12)
[2017-05-01] MEDS: Thiamine TAB* 100 MG TAB PO SCH (20:12)
[2017-05-02] MEDS: LORazepam TAB(*) 1 MG PO SCH ×3 (01:51→05:43)
[2017-05-02] MEDS ORDERED: Vancomycin Trough Check NOTE FOLLOW UP ONE (05:30)
[2017-05-02] MEDS: Vancomycin(*) 1,500 MG in NS 0.9% 250 ML* 250 ML IVPB SCH ×2 (06:10→17:50)
[2017-05-02] MEDS ORDERED: Diltiazem IV* 5 MG/ML 5 ML VIAL (for loading dose/IV Push) (25 MG) IV SLOW PU ONE (06:54)
[2017-05-02] MEDS ORDERED: Metoprolol Tartrate IV* 1 MG/ML 5 ML VIAL IV ONE (06:57)
[2017-05-02] MEDS ORDERED: Furosemide IV* 10 MG/ML 2 ML VIAL (20 MG) IV ONE (07:13)
--- NOTE | 2017-05-02 07:37 | PN ---
Subjective Date of Service: 05/02/17 Interval History: Pt is not doing well this AM. Per nursing report the patient is confused-he tells me we are at [place]. Additionally overnight the patient became tachypnic and hypoxic now requiring escalating amounts of supplemental O2. Objective Active Medications: Amlodipine Besylate (Norvasc Tab*) 5 mg PO 2100 [facility] Last Admin: 05/01/17 20:10 Dose: 5 mg Atorvastatin Calcium (Lipitor*) 20 mg PO BEDTIME [facility] Last Admin: 05/01/17 20:11 Dose: 20 mg Citalopram Hydrobromide (Celexa Tab*) 20 mg PO 2100 [facility] Last Admin: 05/01/17 20:11 Dose: 20 mg Docusate Sodium (Colace Cap*) 100 mg PO BID [facility] Last Admin: 05/01/17 19:57 Dose: Not Given Vancomycin HCl 1,500 mg/ (Sodium Chloride) 250 mls @ 166.667 mls/hr IVPB Q12H [facility] Last Admin: 05/02/17 06:10 Dose: 166.667 mls/hr Cefepime HCl (Maxipime 1 Gm In Dextrose Duplex (*)) 1 gm in 50 mls @ 100 mls/ hr IV Q12H [facility] Last Admin: 05/01/17 20:03 Dose: 100 mls/hr Lorazepam (Ativan Tab(*)) 0 - 6 mg PO .PER [facility] PROTOCOL [facility] PRN Reason: Protocol Last Admin: 05/02/17 05:43 Dose: 3 mg Losartan Potassium (Cozaar Tab*) 100 mg PO 2100 [facility] Last Admin: 05/01/17 20:09 Dose: 100 mg Metoprolol Succinate (Toprol Xl Tab*) 100 mg PO 2100 [facility] Last Admin: 05/01/17 20:10 Dose: 100 mg Metronidazole (Flagyl Tab*) 500 mg PO BID [facility] Last Admin: 05/01/17 20:08 Dose: 500 mg Multivitamins/Minerals (Theragran/Minerals Tab*) 1 tab PO 2100 [facility] Last Admin: 05/01/17 20:11 Dose: 1 tab Pharmacy Consult (Vancomycin Per Pharmacy*) 1 note FOLLOW UP . PRN PRN Reason: PER PROTOCOL Rivaroxaban (Xarelto(*)) 20 mg PO 2100 [facility] Last Admin: 05/01/17 20:12 Dose: 20 mg Senna (Senokot Tab*) 1 tab PO BID [facility] Last Admin: 05/01/17 19:57 Dose: Not Given Tamsulosin HCl (Flomax Cap*) 0.4 mg PO 2099 [facility] Last Admin: 05/01/17 20:10 Dose: 0.4 mg Thiamine HCl (Vitamin B-1 Tab*) 100 mg PO 2100 [facility] Last Admin: 05/01/17 20:12 Dose: 100 mg Vital Signs - 8 hr 05/02/17 05/02/17 05/02/17 00:47 01:00 01:51 Temperature Pulse Rate 131 Respiratory 22 24 24 Rate Blood Pressure 145/80 (mmHg) O2 Sat by Pulse 89 Oximetry 05/02/17 05/02/17 05/02/17 01:52 03:00 03:09 Temperature 98.7 F Pulse Rate 109 Respiratory 24 22 22 Rate Blood Pressure 138/77 (mmHg) O2 Sat by Pulse 88 Oximetry 05/02/17 05/02/17 05/02/17 03:11 03:46 03:51 Temperature Pulse Rate Respiratory 22 24 Rate Blood Pressure (mmHg) O2 Sat by Pulse 92 Oximetry 05/02/17 05/02/17 05/02/17 05:00 05:02 05:43 Temperature Pulse Rate 106 Respiratory 24 24 24 Rate Blood Pressure 141/95 (mmHg) O2 Sat by Pulse 89 92 Oximetry 05/02/17 06:11 Temperature Pulse Rate Respiratory 34 Rate Blood Pressure (mmHg) O2 Sat by Pulse Oximetry Oxygen Devices in Use Now: OxyMask - 91% on 7L oxymask Appearance: Super morbidly obese male sitting up in bed, tachypnic Eyes: No Scleral Icterus Ears/Nose/Mouth/Throat: Mucous Membranes Moist Respiratory: Symmetrical Chest Expansion and Respiratory Effort, - - bibasilar crackles R>L, end expiratory squeak Cardiovascular: - - heart sounds are distant and difficult to appreciate over pt 's respirations (afib with RVR on tele), marked B/L LE edema Abdominal: NL Sounds; No Tenderness; No Distention Extremities: No Clubbing, Cyanosis Skin: No Nodules or Sclerosis, - - see separate progress note with picture of L foot wounds, chronic venous stasis changes to B/L LE Neurological: - - confused, lethargic Result Diagrams: 04/30/17 14:50 05/01/17 08:09 Assess/Plan/Problems-Billing Mr Luevano is a 67 yo M who has a h/o afib, suspected MOOKIE, type II DM, HTN, HLD , alcoholism and anxiety/depression who presented to the wound center for routine follow up and was found to have a worsened L heel wound in addition to possible cellulitis about the L 5th toe/ray amputation site. - Patient Problems (1) Acute respiratory failure with hypoxia Current Visit: Yes Status: Acute Code(s): J96.01 - ACUTE RESPIRATORY FAILURE WITH HYPOXIA SNOMED Code(s): 38492702 Comment: This AM the patient has developed acute hypoxic respiratory failure. He now has marginal O2 saturations on 7L oxymask. ABG sent to eval for hypercarbia as well. CXR this AM shows pulmonary edema more likely than infiltrate though the official radiology read still pending. Will dose lasix 20mg IV x1. Transfer the patient to the ICU as I am concerned he will tire out as he is markedly tachypnic at this time and "belly breathing." Additionally he became more tachycardic overnight. If no improvement with lasix and BiPAP will consider ruling out PE but this seems unlikely as he is on xarelto at baseline. (2) Pulmonary edema Current Visit: Yes Status: Acute Code(s): J81.1 - CHRONIC PULMONARY EDEMA SNOMED Code(s): 51547097 Comment: As above I am concerned for pulmonary edema. Will dose lasix 20mg IV x1 now and place pt on BiPAP. Will get echo today. Transfer to the ICU. (3) Cellulitis of foot without toes, left Current Visit: Yes Status: Acute Code(s): L03.116 - CELLULITIS OF LEFT LOWER LIMB SNOMED Code(s): 217657838 Comment: Continue vanco, cefepime and flagyl for now. Surgical site looks unchanged today-there is mild creamy material noted in the wound but I question if this may be secondary to the silver collagen applied yesterday. Will get ID consult tomorrow. (4) Stage II pressure ulcer of left heel Current Visit: Yes Status: Acute Code(s): L89.622 - PRESSURE ULCER OF LEFT HEEL, STAGE 2 SNOMED Code(s): 715388356 Comment: The patient while sitting up in the chair did not take pressure off his L heel, his feet are now floating on the bed. Continue dressing changes per surgery. (5) Hyponatremia Current Visit: Yes Status: Acute Code(s): E87.1 - HYPO-OSMOLALITY AND HYPONATREMIA SNOMED Code(s): 01080447 Comment: Improving today. Will continue to monitor. (6) Alcoholism Current Visit: Yes Status: Acute Code(s): F10.20 - ALCOHOL DEPENDENCE, UNCOMPLICATED SNOMED Code(s): 4039175 Comment: The patient is still scoring heavily on the WAM protocol. ? DTs today as pt is quite confused and had been agitated overnight. Continue WAM. (7) Atrial fibrillation Current Visit: Yes Status: Chronic Code(s): I48.91 - UNSPECIFIED ATRIAL FIBRILLATION SNOMED Code(s): 06305777 Comment: HR is now uncontrolled. Will continue metoprolol at home dose and xarelto. I question if his acute hypoxic respiratory failure is driving his tachycardia. Monitor on tele. (8) HTN (hypertension) Current Visit: Yes Status: Chronic Code(s): I10 - ESSENTIAL (PRIMARY) HYPERTENSION SNOMED Code(s): 48655762 Comment: BP is not controlled. Increase amlodipine to 10mg daily and give in AM starting today. Monitor BP. (9) Type 2 diabetes mellitus Current Visit: Yes Status: Chronic Comment: Begin checking sugars ACHS while acutely ill. Will cover with lispro as needed. (10) Depression with anxiety Current Visit: Yes Status: Chronic Comment: Continue citalopram. (11) BPH (benign prostatic hyperplasia) Current Visit: Yes Status: Chronic Code(s): N40.0 - BENIGN PROSTATIC HYPERPLASIA WITHOUT LOWER URINRY TRACT SYMP SNOMED Code(s): 608553683 Comment: Continue flomax. (12) HLD (hyperlipidemia) Current Visit: Yes Status: Chronic Code(s): E78.5 - HYPERLIPIDEMIA, UNSPECIFIED SNOMED Code(s): 46164872 Comment: Continue lipitor. (13) DVT prophylaxis Current Visit: Yes Status: Acute Code(s): CVZ9743 - SNOMED Code(s): 286651215 Comment: xarelto (14) Full code status Current Visit: Yes Status: Acute Code(s): Z78.9 - OTHER SPECIFIED HEALTH STATUS SNOMED Code(s): 134495138
[2017-05-02] MEDS ORDERED: Dextrose 50% Syringe 50 ML* 25 GM/50 ML SYRINGE IV PUSH PRN (07:44)
--- NOTE | 2017-05-02 08:31 | RAD ---
HISTORY: Dyspnea COMPARISONS: February 26, 2016 VIEWS: 1: frontal portable view of the chest at 7:02 AM FINDINGS: LINES AND TUBES: None. CARDIOMEDIASTINAL SILHOUETTE: The cardiomediastinal silhouette is stable. PLEURA: The costophrenic angles are sharp. No pleural abnormalities are noted. LUNG PARENCHYMA: There is enlargement of the central pulmonary vasculature. There is a diffuse reticular pattern with indistinct pulmonary vessels. There is more focal opacification of the right midlung field. ABDOMEN: The upper abdomen is clear. There is no subphrenic gas. BONES AND SOFT TISSUES: No bone or soft tissue abnormalities are noted. IMPRESSION: PULMONARY INTERSTITIAL EDEMA. THERE IS MORE FOCAL CONSOLIDATION OF THE RIGHT MIDLUNG FIELD. RECOMMEND FOLLOW-UP UNTIL RESOLUTION TO EXCLUDE UNDERLYING PULMONARY PARENCHYMAL PATHOLOGY.
[2017-05-02] MEDS: Cefepime 1 GM in Dextrose(*) 1 GM/50 ML BAG IV SCH ×2 (08:42→20:49)
[2017-05-02 09:16] LABS: ABS Basophils 0.1 10^3/ul (0-0.2); ABS Eosinophils 0.1 10^3/ul (0-0.6); ABS Lymphocytes 0.7 10^3/ul (1.0-4.8); ABS Neutrophils 8.1 10^3/ul (1.5-7.7); ABS Nucleated RBC 0 10^3/ul; Hematocrit 35 % (42-52); Hemoglobin 11.7 g/dl (14.0-18.0); Lymphocyte % 7.1 % (25-47); Mean Corpuscular HGB Conc 34 g/dl (31-36); Mean Corpuscular Hemoglobin 34 pg (27-31); Mean Corpuscular Volume 100 fL (80-94); Mean Platelet Volume 9 um3 (7.4-10.4); Nucleated Red Blood Cells % 0; Platelet Count 124 10^3/ul (150-450); Red Blood Count 3.44 10^6/ul (4.0-5.4); Red Cell Distribution Width 15 % (10.5-15); White Blood Count 9.9 10^3/ul (3.5-10.8)
--- NOTE | 2017-05-02 09:22 | PN ---
Progress Note - Progress Note Date of Service: 05/02/17 Note: Images of L foot from 05/02/17 (pt gave me permission to photograph and place images in medical record):
[2017-05-02] MEDS: Senna TAB PO SCH ×2 (09:38→20:53)
[2017-05-02] MEDS: Docusate CAP* 100 MG PO SCH ×2 (09:38→21:11)
[2017-05-02] MEDS: amLODIPine TAB* 5 MG PO SCH (09:38)
[2017-05-02] MEDS: metroNIDAZOLE TAB* 250 MG PO SCH ×2 (09:38→20:52)
[2017-05-02] MEDS ORDERED: Perflutren Lipid Microsphere* 3 ML VIAL ONE (11:26)
[2017-05-02] MEDS: LORazepam INJ* 2 MG/ML 1 ML VIAL IV PUSH PRN ×2 (11:31→13:15)
[2017-05-02] MEDS ORDERED: Dexmedetomidine* 400 MCG in NS 0.9% 100 ML* 96 ML IVPB SCH (12:00)
[2017-05-02] MEDS: Dexmedetomidine* 400 MCG in NS 0.9% 100 ML* 96 ML IVPB SCH ×2 (12:16→21:20)
--- NOTE | 2017-05-02 13:03 | ECHO ---
Patient: JARETT COOPER [facility] Rec#: [id number] : 1950 Date: 05/02/2017 Age: 67y Height: 187.96 cm / 74.0 in Weight: 191.87 kg / 422.9 lbs Sex: M BSA: 2.99 Room#: ICU 7 Admit Date#: 04/30/2017 Type: Inpatient Referring: Lydia Arguelles DO Reading: Chayo German MD Tipple Oiler: Eveline Pratt RDCS,RDMS CC: Ramez Akins MD Transthoracic Echocardiogram Indication: CHF BP: 151/86 HR: 106 Rhythm: A-Fib Findings History: HTN, HLD, AFIB, morbid obesity, ETOH Technical Comments: The study is technically limited due to poor parasternal windows. The study is technically limited due to patient body habitus. The study is technically limited due to patient being on BIPAP during study. Left Ventricle: The left ventricular chamber size is normal. Mild to moderate concentric left ventricular hypertrophy is observed. The estimated ejection fraction is 55-60%. There is septal flattening of the interventricular septum consistent with right ventricular volume or pressure overload. The assessment of diastolic function is non-diagnostic. Left Atrium: The left atrium is severely dilated. Right Ventricle: The right ventricle wall thickness is mildly increased. The right ventricle is mild to moderately dilated. The right ventricular global systolic function is normal. Right Atrium: The right atrial cavity size is severely dilated. Aortic Valve: The aortic valve leaflets are mildly thickened. There is no evidence of aortic regurgitation. There is no evidence of aortic stenosis. Mitral Valve: The mitral valve leaflets are mildly thickened. There is a trace of mitral regurgitation. There is no evidence of mitral stenosis. Tricuspid Valve: The tricuspid valve leaflets are normal. There is trace tricuspid regurgitation. There is evidence that pulmonary hypertension may be underestimated. Pulmonic Valve: The pulmonic valve structure is not well visualized. Pericardium: There is no significant pericardial effusion. Aorta: The aorta is not well visualized. Pulmonary Artery: The main pulmonary artery is not well visualized. Venous: The inferior vena cava is dilated. There is less than 50% respiratory change in the inferior vena cava dimension. Summary: There was not any prior study for comparison. Conclusions The left ventricular chamber size is normal. Mild to moderate concentric left ventricular hypertrophy is observed. The estimated ejection fraction is 55-60%. There is septal flattening of the interventricular septum consistent with right ventricular volume or pressure overload. The assessment of diastolic function is non-diagnostic. The left atrium is severely dilated. The right ventricle is mild to moderately dilated. There is a trace of mitral regurgitation. There is trace tricuspid regurgitation. Measurements Name Value Normal Range RVDdMajor (2D) 4.5 cm (2.2 - 4.4) RAd ISD 4CH 8.1 cm (3.4 - 4.9) RA (A4C)W 6.1 cm (2.9 - 4.6) LAd ISD 4CH 7.1 cm (2.9 - 5.3) LA ISD 4CH W 5.3 cm (2.5 - 4.5) Name Value Normal Range LA ESV SP 4CH (A/L) 201.48 ml - LA ESV SP 2CH (A/L) 147.26 ml - LA ESV BP (A/L) 177.26 ml - LA ESV BP (A/L) index 59 ml/m2 - LA ESV SP 4CH (MOD) 193.34 ml - LA ESV SP 2CH (MOD) 138.98 ml - Name Value Normal Range LV lateral e' Vmax 0.07 m/sec - Name Value Normal Range AV Vmax 1.1 m/sec - AV peak gradient 6 mmHg - Name Value Normal Range MV Vmax 1.8 m/sec - MV VTI 22.2 cm - MV peak gradient 13 mmHg - MV mean gradient 5.6 mmHg - MV PHT 38 msec - MVA (PHT) 5.8 cm2 - Name Value Normal Range TR Vmax 2.3 m/sec - TR peak gradient 21 mmHg - RAP 20 mmHg - RVSP 41 mmHg - IVC diameter 3.1 cm -
[2017-05-02] MEDS: Insulin LISPRO* 1 UNITS UNIT SUBCUT SCH ×3 (13:33→21:12)
[2017-05-02] MEDS: Multivitamins/Minerals TAB PO SCH (20:52)
[2017-05-02] MEDS: Citalopram TAB* 20 MG PO SCH (20:52)
[2017-05-02] MEDS: Metoprolol Succinate XL TAB* 100 MG PO SCH (20:52)
[2017-05-02] MEDS: Atorvastatin* 20 MG TAB PO SCH (20:52)
[2017-05-02] MEDS: Losartan TAB* 25 MG PO SCH (20:52)
[2017-05-02] MEDS: Rivaroxaban TAB(*) 20 MG TAB PO SCH (20:53)
[2017-05-02] MEDS: Thiamine TAB* 100 MG TAB PO SCH (20:53)
[2017-05-02] MEDS: Tamsulosin CAP* 0.4 MG PO SCH (20:53)
[2017-05-03] MEDS: LORazepam INJ* 2 MG/ML 1 ML VIAL IV PUSH PRN ×2 (04:07→14:28)
[2017-05-03] MEDS: Vancomycin(*) 1,500 MG in NS 0.9% 250 ML* 250 ML IVPB SCH ×2 (05:43→17:28)
[2017-05-03] MEDS ORDERED: Acetaminophen SUPP* 650 MG SUPP PR PRN (05:51)
[2017-05-03 06:20] LABS: Hematocrit 35 % (42-52); Mean Corpuscular HGB Conc 34 g/dl (31-36); Mean Corpuscular Hemoglobin 34 pg (27-31); Mean Corpuscular Volume 100 fL (80-94); Mean Platelet Volume 9 um3 (7.4-10.4); Platelet Count 116 10^3/ul (150-450); Red Blood Count 3.49 10^6/ul (4.0-5.4); Red Cell Distribution Width 14 % (10.5-15); White Blood Count 9.7 10^3/ul (3.5-10.8)
[2017-05-03 06:33] LABS: Urine Appearance Cloudy; Urine Blood 3+ (Negative); Urine Ketones Trace (Negative); Urine Protein 2+(100 mg/dL) (Negative); Urine Specific Gravity 1.024 (1.010-1.030); Urine Urobilinogen Negative (Negative)
[2017-05-03 06:34] LABS: EGFR Non-African American 91.9 (>60)
[2017-05-03 06:37] LABS: ABS Basophils 0 10^3/ul (0-0.2); ABS Eosinophils 0.2 10^3/ul (0-0.6); ABS Lymphocytes 0.6 10^3/ul (1.0-4.8); ABS Neutrophils 7.9 10^3/ul (1.5-7.7); ABS Nucleated RBC 0 10^3/ul; Eosinophil % 2.1 % (0-6); Lymphocyte % 6.4 % (25-47); Nucleated Red Blood Cells % 0.1
[2017-05-03 06:47] LABS: Urine Color Red
[2017-05-03] MEDS: Insulin LISPRO* 1 UNITS UNIT SUBCUT SCH ×3 (07:44→17:41)
[2017-05-03] MEDS: Cefepime 1 GM in Dextrose(*) 1 GM/50 ML BAG IV SCH ×2 (07:44→19:32)
--- NOTE | 2017-05-03 08:00 | RAD ---
HISTORY: Sepsis COMPARISONS: May 02, 2017 VIEWS: 2: frontal portable view of the chest at 7:05 AM FINDINGS: LINES AND TUBES: None. CARDIOMEDIASTINAL SILHOUETTE: The cardiac silhouette is enlarged. The cardiomediastinal silhouette is otherwise normal for portable technique. PLEURA: The costophrenic angles are sharp. No pleural abnormalities are noted. LUNG PARENCHYMA: There is a diffuse reticular pattern with indistinct pulmonary vessels. There is more focal opacification of the right mid lung field in the perihilar region. ABDOMEN: The upper abdomen is clear. There is no subphrenic gas. BONES AND SOFT TISSUES: No bone or soft tissue abnormalities are noted. IMPRESSION: AGAIN NOTED IS PULMONARY INTERSTITIAL EDEMA WITH MORE FOCAL CONSOLIDATION OF THE RIGHT MID LUNG. RECOMMEND FOLLOW-UP UNTIL RESOLUTION.
--- NOTE | 2017-05-03 09:56 | PN ---
Subjective Date of Service: 05/03/17 Interval History: Pt is feeling ok this AM. He states he is thirsty. He had a good conversation with Dr. Rojas about his foot wounds. He is concerned about potentially loosing his foot. Objective Active Medications: Acetaminophen (Tylenol Supp*) 650 mg KS Q4H PRN PRN Reason: FEVER Amlodipine Besylate (Norvasc Tab*) 10 mg PO DAILY [facility] Last Admin: 05/02/17 09:38 Dose: Not Given Atorvastatin Calcium (Lipitor*) 20 mg PO BEDTIME [facility] Last Admin: 05/02/17 20:52 Dose: Not Given Citalopram Hydrobromide (Celexa Tab*) 20 mg PO 2100 [facility] Last Admin: 05/02/17 20:52 Dose: Not Given Dextrose (D50w Syringe 50 Ml*) 12.5 gm IV PUSH .FOR FS < 60 - SS PRN PRN Reason: FS < 60 Docusate Sodium (Colace Cap*) 100 mg PO BID [facility] Last Admin: 05/02/17 21:11 Dose: Not Given Hydralazine HCl (Apresoline Iv*) 10 mg IV Q4H PRN PRN Reason: Systolic >170 Vancomycin HCl 1,500 mg/ (Sodium Chloride) 250 mls @ 166.667 mls/hr IVPB Q12H [facility] Last Admin: 05/03/17 05:43 Dose: 166.667 mls/hr Cefepime HCl (Maxipime 1 Gm In Dextrose Duplex (*)) 1 gm in 50 mls @ 100 mls/ hr IV Q12H [facility] Last Admin: 05/03/17 07:44 Dose: 100 mls/hr Dexmedetomidine HCl 400 mcg/ (Sodium Chloride) 100 mls @ 9.59 mls/hr IVPB Q10H [facility]; 0.2 MCG/KG/HR PRN Reason: Protocol Last Admin: 05/02/17 21:20 Dose: 9.59 mls/hr Insulin Human Lispro (Humalog*) 0 units SUBCUT ACHS HODAN PRN Reason: Protocol Last Admin: 05/03/17 07:44 Dose: Not Given Lorazepam (Ativan Inj*) 0 mg IV PUSH Q2H PRN; Protocol PRN Reason: alcohol withdrawal Last Admin: 05/03/17 04:07 Dose: 1 mg Losartan Potassium (Cozaar Tab*) 100 mg PO 2100 [facility] Last Admin: 05/02/17 20:52 Dose: Not Given Metoprolol Succinate (Toprol Xl Tab*) 100 mg PO 2100 [facility] Last Admin: 05/02/17 20:52 Dose: Not Given Metronidazole (Flagyl Tab*) 500 mg PO BID [facility] Last Admin: 05/02/17 20:52 Dose: Not Given Multivitamins/Minerals (Theragran/Minerals Tab*) 1 tab PO 2100 [facility] Last Admin: 05/02/17 20:52 Dose: Not Given Pharmacy Consult (Vancomycin Per Pharmacy*) 1 note FOLLOW UP . PRN PRN Reason: PER PROTOCOL Rivaroxaban (Xarelto(*)) 20 mg PO 2100 [facility] Last Admin: 05/02/17 20:53 Dose: Not Given Senna (Senokot Tab*) 1 tab PO BID [facility] Last Admin: 05/02/17 20:53 Dose: Not Given Tamsulosin HCl (Flomax Cap*) 0.4 mg PO 2100 [facility] Last Admin: 05/02/17 20:53 Dose: Not Given Thiamine HCl (Vitamin B-1 Tab*) 100 mg PO 2100 [facility] Last Admin: 05/02/17 20:53 Dose: Not Given Vital Signs - 8 hr 05/03/17 05/03/17 05/03/17 02:00 02:01 02:30 Temperature 99.9 F 99.9 F 100.0 F Pulse Rate 76 70 69 Respiratory 28 30 0 Rate Blood Pressure 154/72 142/76 (mmHg) O2 Sat by Pulse 96 96 94 Oximetry 05/03/17 05/03/17 05/03/17 03:00 03:30 04:00 Temperature 98.4 F 97.7 F 101.1 F Pulse Rate 72 64 90 Respiratory 24 24 17 Rate Blood Pressure 143/99 127/60 (mmHg) O2 Sat by Pulse 94 94 95 Oximetry 05/03/17 05/03/17 05/03/17 04:02 04:07 04:30 Temperature 101.1 F 101.1 F Pulse Rate 91 83 Respiratory 23 22 29 Rate Blood Pressure 148/97 144/91 (mmHg) O2 Sat by Pulse 96 95 Oximetry 05/03/17 05/03/17 05/03/17 05:00 05:03 05:31 Temperature 101.1 F 101.1 F 101.1 F Pulse Rate 103 97 97 Respiratory 19 16 17 Rate Blood Pressure 152/114 162/98 173/130 (mmHg) O2 Sat by Pulse 97 94 95 Oximetry 05/03/17 05/03/17 05/03/17 06:00 06:09 06:31 Temperature 100.9 F 100.9 F 100.8 F Pulse Rate 88 98 81 Respiratory 28 16 14 Rate Blood Pressure 163/94 135/86 (mmHg) O2 Sat by Pulse 94 94 96 Oximetry 05/03/17 05/03/17 05/03/17 07:00 07:01 07:31 Temperature 100.4 F 100.4 F 99.7 F Pulse Rate 87 90 95 Respiratory 22 21 28 Rate Blood Pressure 148/83 162/100 (mmHg) O2 Sat by Pulse 96 96 97 Oximetry 05/03/17 05/03/17 05/03/17 08:00 08:01 08:31 Temperature 99.7 F 99.7 F 99.5 F Pulse Rate 95 Respiratory 22 29 26 Rate Blood Pressure 157/98 139/89 (mmHg) O2 Sat by Pulse 90 Oximetry 05/03/17 05/03/17 05/03/17 09:00 09:01 09:31 Temperature 99.3 F 99.3 F 99.1 F Pulse Rate 109 107 109 Respiratory 31 31 20 Rate Blood Pressure 146/89 134/92 (mmHg) O2 Sat by Pulse 87 89 92 Oximetry Oxygen Devices in Use Now: BiPAP Appearance: Middle aged obese male sitting up in bed, NAD Eyes: No Scleral Icterus Ears/Nose/Mouth/Throat: Mucous Membranes Moist Respiratory: Symmetrical Chest Expansion and Respiratory Effort, Clear to Auscultation - anteriorly Cardiovascular: NL Sounds; No Murmurs; No JVD, - - irregularly irregular, mildly tachycardic, marked LE edema Abdominal: NL Sounds; No Tenderness; No Distention Extremities: No Clubbing, Cyanosis Skin: No Nodules or Sclerosis, - - L foot surgical wound and L heel pressure ulcer unchanged today Neurological: - - sleepy but arousable, seems to be more appropriate in answering questions. Result Diagrams: 05/03/17 05:55 05/03/17 05:55 Microbiology and Other Data: Microbiology 05/02/17 08:43 Nasal Screen MRSA (PCR)(EDA) - Final Nasal Mrsa Negative Assess/Plan/Problems-Billing Mr Luevano is a 67 yo M who has a h/o afib, suspected MOOKIE, type II DM, HTN, HLD , alcoholism and anxiety/depression who presented to the wound center for routine follow up and was found to have a worsened L heel wound in addition to possible cellulitis about the L 5th toe/ray amputation site. - Patient Problems (1) Acute respiratory failure with hypoxia Current Visit: Yes Status: Acute Code(s): J96.01 - ACUTE RESPIRATORY FAILURE WITH HYPOXIA SNOMED Code(s): 87023191 Comment: Pt has improved some with BiPAP, will take the patient off BIPAP this AM and monitor his respiratory status. He spiked a fever overnight and repeat CXR done this AM shows perhaps a focal infiltrate in the R mid lung. He is already on broad spectrum Abx. Echo done yesterday shows a normal EF, no mention of diastolic function but there is evidence of RV pressure overload. If pt stable off BiPAP will get CTA to r/o PE as he was likely off his xarelto at the time of his toe amputation. (2) Pulmonary edema Current Visit: Yes Status: Acute Code(s): J81.1 - CHRONIC PULMONARY EDEMA SNOMED Code(s): 23923524 Comment: Hold on further lasix for now. Monitor respiratory status off BiPAP , if he worsens will be getting CTA to r/o PE but will also try another dose of lasix. (3) Cellulitis of foot without toes, left Current Visit: Yes Status: Acute Code(s): L03.116 - CELLULITIS OF LEFT LOWER LIMB SNOMED Code(s): 183243040 Comment: Continue vanco, cefepime and flagyl for now. ID consult today. Dr Rojas saw the patient this AM and did not recommend any further testing at si time. (4) Stage II pressure ulcer of left heel Current Visit: Yes Status: Acute Code(s): L89.622 - PRESSURE ULCER OF LEFT HEEL, STAGE 2 SNOMED Code(s): 905610235 Comment: Continue pressure relieving measures. (5) Hyponatremia Current Visit: Yes Status: Acute Code(s): E87.1 - HYPO-OSMOLALITY AND HYPONATREMIA SNOMED Code(s): 76927942 Comment: Resolved. (6) Alcoholism Current Visit: Yes Status: Acute Code(s): F10.20 - ALCOHOL DEPENDENCE, UNCOMPLICATED SNOMED Code(s): 3473834 Comment: Continue WAM monitoring/ativan dosing and low dose precedex. Likely stop precedex later today. (7) Atrial fibrillation Current Visit: Yes Status: Chronic Code(s): I48.91 - UNSPECIFIED ATRIAL FIBRILLATION SNOMED Code(s): 21870521 Comment: HR is mildly elevated. He did not get his metoprolol XL last evening due to being on BiPAP-will give metoprolol now. Continue xarelto. (8) HTN (hypertension) Current Visit: Yes Status: Chronic Code(s): I10 - ESSENTIAL (PRIMARY) HYPERTENSION SNOMED Code(s): 61414135 Comment: BP is mildly elevated. Will continue current medication regimen and monitor the BP. (9) Type 2 diabetes mellitus Current Visit: Yes Status: Chronic Comment: Sugars are under very good control. Continue to follow. (10) Depression with anxiety Current Visit: Yes Status: Chronic Comment: Continue citalopram. (11) BPH (benign prostatic hyperplasia) Current Visit: Yes Status: Chronic Code(s): N40.0 - BENIGN PROSTATIC HYPERPLASIA WITHOUT LOWER URINRY TRACT SYMP SNOMED Code(s): 209696015 Comment: Continue flomax. (12) HLD (hyperlipidemia) Current Visit: Yes Status: Chronic Code(s): E78.5 - HYPERLIPIDEMIA, UNSPECIFIED SNOMED Code(s): 56953316 Comment: Continue lipitor. (13) DVT prophylaxis Current Visit: Yes Status: Acute Code(s): OSO6598 - SNOMED Code(s): 911029467 Comment: xarelto (14) Full code status Current Visit: Yes Status: Acute Code(s): Z78.9 - OTHER SPECIFIED HEALTH STATUS SNOMED Code(s): 274941519
--- NOTE | 2017-05-03 11:53 | PN ---
Progress Note - Progress Note Date of Service: 05/03/17 SOAP: Subjective: Pt seen and examined this morning. Original consult done on wound center admission account last Wednesday. Events of last 48 hrs noted. Respiratory distress and transferred to ICU. Possible EtOh withdrawal. No c/o at foot Objective: L foot : wound dehiscence at 5ht toe amp site. minimal drainage. plantar ulcer improved heel ulcer dry, mostly unchanged. Assessment: open wound at ray amputation site pressure ulcers to heel and foot Plan: abx leg elevation local wound care short term rehab weight loss
--- NOTE | 2017-05-03 13:48 | RAD ---
HISTORY: Left testicular pain COMPARISONS: None TECHNIQUE: Multiple transverse and longitudinal ultrasound images were obtained of the scrotum, using grayscale, color Doppler, and spectral Doppler imaging. FINDINGS: RIGHT: RIGHT TESTICLE: The right testicle measures 5.3 x 2.5 x 4.1 cm. There is ectasia of the rete testis. The right testicle is otherwise homogeneous in echotexture, without testicular parenchymal mass. Normal arterial and venous waveforms are identified within the right testicle on spectral Doppler imaging. RIGHT EPIDIDYMIS: The right epididymis measures 1.5 cm at the head. There is a 0.8 cm epididymal head cyst. RIGHT SCROTUM: There is no hydrocele or varicocele. There is physiologic fluid. LEFT: LEFT TESTICLE: The left testicle measures 4.9 x 2 x 4 cm. There is ectasia of the rete testis. The left testicle is otherwise homogeneous in echotexture, without testicular parenchymal mass. Normal arterial and venous waveforms are identified within the left testicle on spectral Doppler imaging. LEFT EPIDIDYMIS: The left epididymis measures 1.4 cm at the head. There are several small epididymal cysts measuring up to 0.5 cm. LEFT SCROTUM: There is no hydrocele or varicocele. There is physiologic fluid. OTHER: None IMPRESSION: 1. ECTASIA OF THE RETE TESTES BILATERALLY. NO TESTICULAR PARENCHYMAL MASS. 2. NO SONOGRAPHIC FEATURES OF TORSION. PLEASE NOTE THAT PARTIAL OR INTERMITTENT TORSION MAY BE SONOGRAPHICALLY NORMAL.
[2017-05-03] MEDS: Metoprolol Succinate XL TAB* 100 MG PO SCH (14:17)
[2017-05-03] MEDS: metroNIDAZOLE TAB* 250 MG PO SCH ×2 (14:18→21:32)
[2017-05-03] MEDS: Docusate CAP* 100 MG PO SCH ×2 (14:18→21:30)
[2017-05-03] MEDS: amLODIPine TAB* 5 MG PO SCH (14:18)
[2017-05-03] MEDS ORDERED: Iodixanol* (CONTRAST) 320 MG/ML 100 ML SDV IV ONE ×2 (15:08→15:23)
--- NOTE | 2017-05-03 15:52 | RAD ---
INDICATION: Shortness of breath. LEFT foot calcaneal wound. COMPARISON: May 03, 2017 chest radiograph TECHNIQUE: Multidetector CT images were obtained from the lung apices to the upper abdomen with 100 mL Omnipaque 300 IV contrast. Pulmonary angiogram protocol. Multiplanar reformation including with maximum intensity projection. REPORT: Significant alveolar consolidation at the RIGHT upper lobe. Small bilateral dependent pleural effusions with proportional atelectasis. Thickened peripheral intralobular septa at the lower lung zones. Negative for pneumothorax. 1.1 cm short axis mildly enlarged RIGHT paratracheal and 1.2 cm short axis precarinal lymph nodes. Cardiomegaly. Negative for pericardial effusion. Mildly ectatic thoracic aorta with the ascending segment measuring up to 4.7 cm diameter. Negative for aortic dissection. Motion artifact limits image quality of the pulmonary angiogram. No compelling filling defects evident at the main to segmental and where visible the subsegmental pulmonary arteries to indicate pulmonary embolism. Limited images through the upper abdomen are remarkable for fatty infiltration of the liver. Negative for suspicious thoracic osseous lesions or fracture. IMPRESSION: 1. RIGHT upper lobe pneumonia. 2. Cardiomegaly and mild interstitial pulmonary edema with associated small dependent pleural effusions. 3. Moderately limited CT pulmonary angiogram due to motion artifact without compelling evidence for pulmonary embolism. 4. Mildly enlarged RIGHT paratracheal and precarinal mediastinal lymph nodes.
[2017-05-03] MEDS: Senna TAB PO SCH ×2 (15:56→21:32)
--- NOTE | 2017-05-03 16:00 | RAD ---
Indication: LEFT foot calcaneal wound. History of fifth toe amputation. Comparison: April 11, 2017 LEFT fifth toe radiographs Technique: CT LEFT foot with 100 mL Visipaque 320 IV contrast. Multiplanar reformation. Report: Post amputation of the fifth toe at the level of the head of the fifth metatarsal. No focal osteolysis or suspicious periosteal reaction evident within the [id number]. Normal articular alignment. Negative for fracture. Normal variant bipartite sesamoid at the medial head of the flexor hallucis brevis. Extensive edema throughout the subcutaneous tissue plane without a visualized loculated abscess collection. Diffuse atrophy of the intrinsic musculature of the foot. Varicose veins at the posterior medial distal lower leg and ankle. Small plantar fascia origin bone spur. IMPRESSION: The constellation of findings is consistent with diffuse cellulitis without evidence for a loculated abscess collection. No compelling CT stigmata of osteomyelitis. If there is persistent clinical concern consider MRI or in setting of contraindication to MRI 3 phase bone scan for further assessment.
[2017-05-03] MEDS: Dexmedetomidine* 400 MCG in NS 0.9% 100 ML* 96 ML IVPB SCH (17:46)
--- NOTE | 2017-05-03 20:46 | CONS ---
CONSULTATION REPORT: DATE OF CONSULT: 05/01/17 REQUESTING PHYSICIAN: Dr. Arguelles. CONSULTING SERVICE: Infectious Disease. REASON FOR CONSULT: Fever, left foot infection. IMPRESSION: 1. Status post left fifth ray amputation, 04/13/17, for osteomyelitis, complicated by dehiscence and plantar forefoot wound as well as a calcaneus ulcer, question underlying abscess. 2. Morbid obesity. 3. Alcohol abuse, in brief remission. 4. Type 2 diabetes. 5. Tachypnea with acute hypoxemic respiratory failure, on BiPAP. 6. Left testicle pain. History of benign prostatic hypertrophy. Diffuse scrotal edema, question orchitis or epididymitis. RECOMMENDATIONS: 1. Agree with broad-spectrum antibiotics. 2. Please obtain a CT scan of the left foot to ensure there is no deeper collection that needs draining associated with the fifth ray amputation site and plantar ulcer. 3. Ultrasound of left testicle. HISTORY OF PRESENT ILLNESS: This is 67-year-old male with morbid obesity, alcohol abuse, diabetes, recent admission for left fifth toe infection, status post ray amputation, 04/13/17, which initially apparently healed well, but then developed some dehiscence and serous drainage from the wound bed with surrounding erythema. He was seen in the wound clinic and directed to the hospital because of that and because of a new left calcaneal wound. He was found to have acute hypoxic respiratory failure. He was on BiPAP and started on broad-spectrum antibiotics. His last fever was early this morning at 38.4. His blood cultures were sent today and are pending. He had a chest x-ray which showed interstitial edema and focal change, consolidation of right mid lung. He is not sure when the wound opened up. He denies any pain in the foot, any pain elsewhere. His main complaint is being thirsty and left testicular pain, which has developed over the last couple days. He has a Hunter catheter and he has the sensation that he has to urinate. PAST MEDICAL HISTORY: 1. Morbid obesity. 2. Diabetes, last A1c was under 6. 3. Left fifth toe acute and chronic osteomyelitis, status post amputation. 4. Hypertension. 5. Hyperlipidemia. 6. Benign prostatic hypertrophy. 7. Depression. 8. Anxiety. 9. Obstructive sleep apnea. 10. Atrial fibrillation. MEDICATIONS: 1. Tylenol. 2. Amlodipine. 3. Lipitor. 4. Celexa. 5. Dexmedetomidine infusion. 6. Cefepime 1 g every 12 hours. 7. Flagyl 500 mg by mouth twice daily. 8. Metoprolol. 9. Rivaroxaban. 10. Tamsulosin. 11. Vancomycin 1500 mg every 12 hours. ALLERGIES: PENICILLIN. FAMILY HISTORY: His father had coronary artery disease. SOCIAL HISTORY: Drinks 2 bottles of wine a day. Lives with his . No injection drugs. REVIEW OF SYSTEMS: All [id number] review of systems negative except as noted above. PHYSICAL EXAM: Vital Signs: Temperature is 37.3, heart rate 108, respiratory rate 20, blood pressure 134/92, O2 sat 93% on 8 L. In general, he is awake, not in distress. Neurologic: He is oriented x3. Follows all commands. Moves all the extremities. Sensation is decreased to light touch in both feet. HEENT : There is no conjunctival hemorrhage. Oropharynx is without lesions. Neck: Supple. Lymph nodes: There is no inguinal, axillary, or epitrochlear lymphadenopathy. Heart: Regular and tachycardic without murmurs. Lungs: There are decreased breath sounds at the bases bilaterally without rhonchi. Abdomen: Soft, obese, nontender, nondistended. There are bowel sounds present. Skin: There is no rash or splinter hemorrhages. Musculoskeletal: There is no spine tenderness to palpation. In the left foot, the fifth ray amputation site is open. There is some fibrous material at the base, some serous drainage. There is no erythema around it. There is also a plantar forefoot ulcer with small eschar. There is a large calcaneus ulceration with some eschar without surrounding erythema or tenderness. DIAGNOSTIC STUDIES/LAB DATA: White blood cell count 9, hemoglobin 12, platelets 116,000. MCV is 100. Creatinine is 0.8. ALT was 18. Please see impression and recommendations outlined above, which I have discussed with Dr. Arguelles. Thanks for asking me to see Mr. Luevano in consultation. [id number]/[facility] #: [id number] JASMEET
[2017-05-03] MEDS: Rivaroxaban TAB(*) 20 MG TAB PO SCH (21:31)
[2017-05-03] MEDS: Multivitamins/Minerals TAB PO SCH (21:32)
[2017-05-03] MEDS: Thiamine TAB* 100 MG TAB PO SCH (21:32)
[2017-05-03] MEDS: Losartan TAB* 25 MG PO SCH (21:32)
[2017-05-03] MEDS: Atorvastatin* 20 MG TAB PO SCH (21:32)
[2017-05-03] MEDS: Tamsulosin CAP* 0.4 MG PO SCH (21:32)
[2017-05-03] MEDS: Citalopram TAB* 20 MG PO SCH (21:32)
[2017-05-04] MEDS: LORazepam INJ* 2 MG/ML 1 ML VIAL IV PUSH PRN ×4 (02:00→23:28)
[2017-05-04] MEDS: Insulin LISPRO* 1 UNITS UNIT SUBCUT SCH ×5 (05:41→21:29)
[2017-05-04] MEDS: Vancomycin(*) 1,500 MG in NS 0.9% 250 ML* 250 ML IVPB SCH ×2 (06:04→18:24)
[2017-05-04] MEDS: metroNIDAZOLE TAB* 250 MG PO SCH ×2 (07:58→20:35)
[2017-05-04] MEDS: Metoprolol Succinate XL TAB* 100 MG PO SCH (07:58)
[2017-05-04] MEDS: Docusate CAP* 100 MG PO SCH ×2 (07:58→20:36)
[2017-05-04] MEDS: Senna TAB PO SCH ×2 (07:58→20:36)
[2017-05-04] MEDS: Cefepime 1 GM in Dextrose(*) 1 GM/50 ML BAG IV SCH ×2 (07:58→21:22)
[2017-05-04] MEDS: amLODIPine TAB* 5 MG PO SCH (07:59)
[2017-05-04] MEDS: Acetaminophen TAB* 325 MG PO PRN ×2 (09:30→21:13)
[2017-05-04] MEDS: hydrALAZINE IV* 20 MG/ML VIAL IV PRN ×2 (09:30→21:13)
--- NOTE | 2017-05-04 12:28 | PN ---
Subjective Date of Service: 05/04/17 Interval History: Pt is feeling ok today. He denies any SOB at rest. He states he has been coughing a small amount and bringing up a scant amount of sputum. He states he does not remember the last couple days. Objective Active Medications: Acetaminophen (Tylenol Tab*) 650 mg PO Q4H PRN PRN Reason: FEVER OR PAIN Last Admin: 05/04/17 09:30 Dose: 650 mg Amlodipine Besylate (Norvasc Tab*) 10 mg PO DAILY [facility] Last Admin: 05/04/17 07:59 Dose: 10 mg Atorvastatin Calcium (Lipitor*) 20 mg PO BEDTIME [facility] Last Admin: 05/03/17 21:32 Dose: 20 mg Citalopram Hydrobromide (Celexa Tab*) 20 mg PO 2100 [facility] Last Admin: 05/03/17 21:32 Dose: 20 mg Dextrose (D50w Syringe 50 Ml*) 12.5 gm IV PUSH .FOR FS < 60 - SS PRN PRN Reason: FS < 60 Docusate Sodium (Colace Cap*) 100 mg PO BID [facility] Last Admin: 05/04/17 07:58 Dose: 100 mg Hydralazine HCl (Apresoline Iv*) 10 mg IV Q4H PRN PRN Reason: Systolic >170 Last Admin: 05/04/17 09:30 Dose: 10 mg Vancomycin HCl 1,500 mg/ (Sodium Chloride) 250 mls @ 166.667 mls/hr IVPB Q12H [facility] Last Admin: 05/04/17 06:04 Dose: 166.667 mls/hr Cefepime HCl (Maxipime 1 Gm In Dextrose Duplex (*)) 1 gm in 50 mls @ 100 mls/ hr IV Q12H [facility] Last Admin: 05/04/17 07:58 Dose: 100 mls/hr Insulin Human Lispro (Humalog*) 0 units SUBCUT ACHS [facility] PRN Reason: Protocol Last Admin: 05/04/17 07:59 Dose: Not Given Lorazepam (Ativan Inj*) 0 mg IV PUSH Q2H PRN; Protocol PRN Reason: alcohol withdrawal Last Admin: 05/04/17 05:38 Dose: 1 mg Losartan Potassium (Cozaar Tab*) 100 mg PO 2100 [facility] Last Admin: 05/03/17 21:32 Dose: 100 mg Metoprolol Succinate (Toprol Xl Tab*) 100 mg PO DAILY [facility] Last Admin: 05/04/17 07:58 Dose: 100 mg Metronidazole (Flagyl Tab*) 500 mg PO BID [facility] Last Admin: 05/04/17 07:58 Dose: 500 mg Multivitamins/Minerals (Theragran/Minerals Tab*) 1 tab PO 2100 [facility] Last Admin: 05/03/17 21:32 Dose: 1 tab Pharmacy Consult (Vancomycin Per Pharmacy*) 1 note FOLLOW UP . PRN PRN Reason: PER PROTOCOL Rivaroxaban (Xarelto(*)) 20 mg PO 2100 [facility] Last Admin: 05/03/17 21:31 Dose: 20 mg Senna (Senokot Tab*) 1 tab PO BID [facility] Last Admin: 05/04/17 07:58 Dose: 1 tab Tamsulosin HCl (Flomax Cap*) 0.4 mg PO 2100 [facility] Last Admin: 05/03/17 21:32 Dose: 0.4 mg Thiamine HCl (Vitamin B-1 Tab*) 100 mg PO 2100 [facility] Last Admin: 05/03/17 21:32 Dose: 100 mg Vital Signs - 8 hr 05/04/17 05/04/17 05/04/17 04:31 05:00 05:01 Temperature Pulse Rate 109 96 101 Respiratory 27 34 31 Rate Blood Pressure 160/94 146/98 (mmHg) O2 Sat by Pulse 92 91 90 Oximetry 05/04/17 05/04/17 05/04/17 05:31 05:38 06:00 Temperature Pulse Rate 110 93 Respiratory 25 28 32 Rate Blood Pressure 175/119 (mmHg) O2 Sat by Pulse 89 94 Oximetry 05/04/17 05/04/17 05/04/17 06:01 06:31 07:00 Temperature Pulse Rate 93 93 95 Respiratory 27 33 30 Rate Blood Pressure 154/93 165/93 (mmHg) O2 Sat by Pulse 93 92 94 Oximetry 05/04/17 05/04/17 05/04/17 07:01 07:31 08:00 Temperature 99.8 F Pulse Rate 98 98 100 Respiratory 27 28 39 Rate Blood Pressure 156/102 163/97 (mmHg) O2 Sat by Pulse 94 92 93 Oximetry 05/04/17 05/04/17 05/04/17 08:01 08:31 09:00 Temperature Pulse Rate 103 101 98 Respiratory 35 40 41 Rate Blood Pressure 168/107 174/96 (mmHg) O2 Sat by Pulse 93 93 92 Oximetry 05/04/17 05/04/17 05/04/17 09:01 09:31 09:42 Temperature Pulse Rate 106 102 112 Respiratory 31 32 35 Rate Blood Pressure 175/102 158/96 163/94 (mmHg) O2 Sat by Pulse 92 91 90 Oximetry 05/04/17 05/04/17 05/04/17 10:00 10:11 10:31 Temperature Pulse Rate 101 131 92 Respiratory 35 42 38 Rate Blood Pressure 158/88 152/81 (mmHg) O2 Sat by Pulse 90 88 90 Oximetry 05/04/17 05/04/17 05/04/17 11:00 11:01 11:10 Temperature Pulse Rate 91 104 Respiratory 31 31 Rate Blood Pressure 154/78 (mmHg) O2 Sat by Pulse 94 95 95 Oximetry 05/04/17 05/04/17 05/04/17 11:31 12:00 12:01 Temperature Pulse Rate 102 102 103 Respiratory 24 28 33 Rate Blood Pressure 149/87 133/95 (mmHg) O2 Sat by Pulse 94 93 93 Oximetry Oxygen Devices in Use Now: High Flow Heated Nasal Cannula Appearance: Middle aged obese male sitting up in bed, awake, alert, NAD Eyes: No Scleral Icterus Ears/Nose/Mouth/Throat: Mucous Membranes Moist Respiratory: Symmetrical Chest Expansion and Respiratory Effort, Clear to Auscultation Cardiovascular: NL Sounds; No Murmurs; No JVD, RRR, - - marked lower extremity edema Abdominal: NL Sounds; No Tenderness; No Distention Extremities: No Clubbing, Cyanosis Skin: No Nodules or Sclerosis, - - ulcerations on heel and plantar surface of foot at base of 3-4th toes, surgical site dry with silver collagen dressing in place Neurological: Alert and Oriented x 3 Result Diagrams: 05/03/17 05:55 05/03/17 05:55 Microbiology and Other Data: Microbiology 05/02/17 08:43 Nasal Screen MRSA (PCR)(EDA) - Final Nasal Mrsa Negative Assess/Plan/Problems-Billing Mr Luevano is a 67 yo M who has a h/o afib, suspected MOOKIE, type II DM, HTN, HLD , alcoholism and anxiety/depression who presented to the wound center for routine follow up and was found to have a worsened L heel wound in addition to possible cellulitis about the L 5th toe/ray amputation site. - Patient Problems (1) Acute respiratory failure with hypoxia Current Visit: Yes Status: Acute Code(s): J96.01 - ACUTE RESPIRATORY FAILURE WITH HYPOXIA SNOMED Code(s): 36388684 Comment: Overall pt is improving but now on vapotherm 40L 100%. CTA chest showed no PE but a R sided infiltrate. Will continue broad spectrum Abx to cover the pna. (2) Pulmonary edema Current Visit: Yes Status: Acute Code(s): J81.1 - CHRONIC PULMONARY EDEMA SNOMED Code(s): 59527116 Comment: The patient I suspected had acute pulmonary edema on 05/02/17. No evidence of pulmonary edema now. Hold off on further lasix dosing. (3) Cellulitis of foot without toes, left Current Visit: Yes Status: Acute Code(s): L03.116 - CELLULITIS OF LEFT LOWER LIMB SNOMED Code(s): 114796679 Comment: Continue vanco, cefepime and flagyl for now. CT foot did not reveal any evidence of abscess. Await additional ID recommendations. (4) Stage II pressure ulcer of left heel Current Visit: Yes Status: Acute Code(s): L89.622 - PRESSURE ULCER OF LEFT HEEL, STAGE 2 SNOMED Code(s): 900547879 Comment: Continue pressure relieving measures. This is a concerning wound. (5) Hyponatremia Current Visit: Yes Status: Acute Code(s): E87.1 - HYPO-OSMOLALITY AND HYPONATREMIA SNOMED Code(s): 01224167 Comment: Resolved. (6) Alcoholism Current Visit: Yes Status: Acute Code(s): F10.20 - ALCOHOL DEPENDENCE, UNCOMPLICATED SNOMED Code(s): 6419081 Comment: Continue WAM monitoring/ativan dosing. The patient's mental status is much improved today. (7) Atrial fibrillation Current Visit: Yes Status: Chronic Code(s): I48.91 - UNSPECIFIED ATRIAL FIBRILLATION SNOMED Code(s): 57676575 Comment: HR is generally under better control but he is still mildly tachypnic. Continue metoprolol XL 100mg in the AM and add 25mg in the PM. Continue xarelto. (8) HTN (hypertension) Current Visit: Yes Status: Chronic Code(s): I10 - ESSENTIAL (PRIMARY) HYPERTENSION SNOMED Code(s): 07799294 Comment: BP is mildly elevated. Monitor BP with addition of metoprolol XL 25mg at bedtime. (9) Type 2 diabetes mellitus Current Visit: Yes Status: Chronic Comment: Sugars are under very good control. Continue to follow. (10) Depression with anxiety Current Visit: Yes Status: Chronic Comment: Continue citalopram. (11) BPH (benign prostatic hyperplasia) Current Visit: Yes Status: Chronic Code(s): N40.0 - BENIGN PROSTATIC HYPERPLASIA WITHOUT LOWER URINRY TRACT SYMP SNOMED Code(s): 363989750 Comment: Continue flomax. (12) HLD (hyperlipidemia) Current Visit: Yes Status: Chronic Code(s): E78.5 - HYPERLIPIDEMIA, UNSPECIFIED SNOMED Code(s): 68429159 Comment: Continue lipitor. (13) DVT prophylaxis Current Visit: Yes Status: Acute Code(s): OXD4013 - SNOMED Code(s): 782255035 Comment: raymond (14) Full code status Current Visit: Yes Status: Acute Code(s): Z78.9 - OTHER SPECIFIED HEALTH STATUS SNOMED Code(s): 153385246
[2017-05-04] MEDS: Thiamine TAB* 100 MG TAB PO SCH (20:35)
[2017-05-04] MEDS: Tamsulosin CAP* 0.4 MG PO SCH (20:36)
[2017-05-04] MEDS: Atorvastatin* 20 MG TAB PO SCH (20:36)
[2017-05-04] MEDS: Losartan TAB* 25 MG PO SCH (20:37)
[2017-05-04] MEDS: Metoprolol Succinate XL TAB* 25 MG PO SCH (20:38)
[2017-05-04] MEDS: Multivitamins/Minerals TAB PO SCH (20:38)
[2017-05-04] MEDS: Citalopram TAB* 20 MG PO SCH (20:38)
[2017-05-04] MEDS: Rivaroxaban TAB(*) 20 MG TAB PO SCH (21:29)
[2017-05-04] MEDS: CMCS - Melatonin (NF) 3 MG TAB PO PRN (23:12)
[2017-05-05] MEDS: LORazepam INJ* 2 MG/ML 1 ML VIAL IV PUSH PRN ×2 (01:34→21:30)
[2017-05-05] MEDS: Vancomycin(*) 1,500 MG in NS 0.9% 250 ML* 250 ML IVPB SCH ×2 (06:42→17:24)
[2017-05-05] MEDS: Cefepime 1 GM in Dextrose(*) 1 GM/50 ML BAG IV SCH ×2 (07:57→21:10)
[2017-05-05] MEDS: Insulin LISPRO* 1 UNITS UNIT SUBCUT SCH ×4 (08:20→21:22)
[2017-05-05] MEDS: metroNIDAZOLE TAB* 250 MG PO SCH ×2 (09:18→21:10)
[2017-05-05] MEDS: Docusate CAP* 100 MG PO SCH ×2 (09:18→21:10)
[2017-05-05] MEDS: amLODIPine TAB* 5 MG PO SCH (09:18)
[2017-05-05] MEDS: Metoprolol Succinate XL TAB* 100 MG PO SCH (09:18)
[2017-05-05] MEDS: Senna TAB PO SCH ×2 (09:19→21:10)
[2017-05-05] MEDS: Acetaminophen TAB* 325 MG PO PRN (15:13)
[2017-05-05] MEDS: Rivaroxaban TAB(*) 20 MG TAB PO SCH (21:09)
[2017-05-05] MEDS: CMCS - Melatonin (NF) 3 MG TAB PO PRN (21:09)
[2017-05-05] MEDS: Citalopram TAB* 20 MG PO SCH (21:09)
[2017-05-05] MEDS: Multivitamins/Minerals TAB PO SCH (21:09)
[2017-05-05] MEDS: Tamsulosin CAP* 0.4 MG PO SCH (21:10)
[2017-05-05] MEDS: Metoprolol Succinate XL TAB* 25 MG PO SCH (21:10)
[2017-05-05] MEDS: Losartan TAB* 25 MG PO SCH (21:10)
[2017-05-05] MEDS: Atorvastatin* 20 MG TAB PO SCH (21:10)
[2017-05-05] MEDS: Thiamine TAB* 100 MG TAB PO SCH (21:11)
[2017-05-06] MEDS: LORazepam INJ* 2 MG/ML 1 ML VIAL IV PUSH PRN ×2 (00:30→06:21)
[2017-05-06] MEDS: Cefepime 1 GM in Dextrose(*) 1 GM/50 ML BAG IV SCH ×2 (06:14→18:37)
[2017-05-06] MEDS: Vancomycin(*) 1,500 MG in NS 0.9% 250 ML* 250 ML IVPB SCH ×2 (06:21→19:31)
[2017-05-06] MEDS: Insulin LISPRO* 1 UNITS UNIT SUBCUT SCH ×4 (09:16→21:33)
[2017-05-06] MEDS: metroNIDAZOLE TAB* 250 MG PO SCH ×2 (09:16→21:22)
[2017-05-06] MEDS: Metoprolol Succinate XL TAB* 100 MG PO SCH (09:16)
[2017-05-06] MEDS: amLODIPine TAB* 5 MG PO SCH (09:17)
[2017-05-06] MEDS: Docusate CAP* 100 MG PO SCH ×2 (09:17→21:27)
[2017-05-06] MEDS: Senna TAB PO SCH ×2 (09:17→21:27)
--- NOTE | 2017-05-06 09:43 | PN ---
Progress Note - Progress Note Date of Service: 05/06/17 SOAP: Subjective: Pt seen and examined. Feeling a little better. legs remained elevated. Objective: L foot : wound dehiscence at 5th toe amp site. coursely debrided. 4 x1x1cm, oozing, no drainage plantar ulcer improved heel: unstageable pressure ulcer with eschar. no drainage. CT report reviewed Assessment: open wound at ray amputation site pressure ulcers to heel and foot Plan: abx leg elevation santyl to heel ulcer NPWT to amputation site short term rehab will follow twice weekly while hospitalized. Follow up in wound center at discharge.
[2017-05-06] MEDS ORDERED: Collagenase 250 MG/GM OINT* 30 GM TOPICAL SCH (10:00)
--- NOTE | 2017-05-06 16:35 | PN ---
Subjective Date of Service: 05/06/17 Interval History: Pt is feeling well. He was ramiro lifted to the chair. He does c/o mild SOB with activity. He is worried he is going to loose his foot, reassurance provided that we are doing our best to heal the infection and prevent amputation. Objective Active Medications: Acetaminophen (Tylenol Tab*) 650 mg PO Q4H PRN PRN Reason: FEVER OR PAIN Last Admin: 05/05/17 15:13 Dose: 650 mg Amlodipine Besylate (Norvasc Tab*) 10 mg PO DAILY [facility] Last Admin: 05/06/17 09:17 Dose: 10 mg Atorvastatin Calcium (Lipitor*) 20 mg PO BEDTIME [facility] Last Admin: 05/05/17 21:10 Dose: 20 mg Citalopram Hydrobromide (Celexa Tab*) 20 mg PO 2100 [facility] Last Admin: 05/05/17 21:09 Dose: 20 mg Collagenase (Santyl 250 Mg/Gm Oint*) 1 applic TOPICAL .SEE INSTRUCTIONS [facility] Dextrose (D50w Syringe 50 Ml*) 12.5 gm IV PUSH .FOR FS < 60 - SS PRN PRN Reason: FS < 60 Docusate Sodium (Colace Cap*) 100 mg PO BID [facility] Last Admin: 05/06/17 09:17 Dose: 100 mg Hydralazine HCl (Apresoline Iv*) 10 mg IV Q4H PRN PRN Reason: Systolic >170 Last Admin: 05/04/17 21:13 Dose: 10 mg Vancomycin HCl 1,500 mg/ (Sodium Chloride) 250 mls @ 166.667 mls/hr IVPB Q12H [facility] Last Admin: 05/06/17 06:21 Dose: 166.667 mls/hr Cefepime HCl (Maxipime 1 Gm In Dextrose Duplex (*)) 1 gm in 50 mls @ 100 mls/ hr IV Q12H [facility] Last Admin: 05/06/17 06:14 Dose: 100 mls/hr Insulin Human Lispro (Humalog*) 0 units SUBCUT ACHS [facility] PRN Reason: Protocol Last Admin: 05/06/17 15:47 Dose: Not Given Lorazepam (Ativan Inj*) 0 mg IV PUSH Q2H PRN; Protocol PRN Reason: alcohol withdrawal Last Admin: 05/06/17 06:21 Dose: 1 mg Losartan Potassium (Cozaar Tab*) 100 mg PO 2100 [facility] Last Admin: 05/05/17 21:10 Dose: 100 mg Melatonin (Melatonin (Nf)) 3 mg PO BEDTIME PRN; Protocol PRN Reason: SLEEP Last Admin: 05/05/17 21:09 Dose: 3 mg Metoprolol Succinate (Toprol Xl Tab*) 100 mg PO DAILY [facility] Last Admin: 05/06/17 09:16 Dose: 100 mg Metoprolol Succinate (Toprol Xl Tab*) 25 mg PO BEDTIME [facility] Last Admin: 05/05/17 21:10 Dose: 25 mg Metronidazole (Flagyl Tab*) 500 mg PO BID [facility] Last Admin: 05/06/17 09:16 Dose: 500 mg Multivitamins/Minerals (Theragran/Minerals Tab*) 1 tab PO 2100 [facility] Last Admin: 05/05/17 21:09 Dose: 1 tab Pharmacy Consult (Vancomycin Per Pharmacy*) 1 note FOLLOW UP . PRN PRN Reason: PER PROTOCOL Rivaroxaban (Xarelto(*)) 20 mg PO 2100 [facility] Last Admin: 05/05/17 21:09 Dose: 20 mg Senna (Senokot Tab*) 1 tab PO BID [facility] Last Admin: 05/06/17 09:17 Dose: 1 tab Tamsulosin HCl (Flomax Cap*) 0.4 mg PO 2100 [facility] Last Admin: 05/05/17 21:10 Dose: 0.4 mg Thiamine HCl (Vitamin B-1 Tab*) 100 mg PO 2100 [facility] Last Admin: 05/05/17 21:11 Dose: 100 mg Vital Signs - 8 hr 05/06/17 05/06/17 05/06/17 08:31 09:00 09:01 Temperature Pulse Rate 108 106 110 Respiratory 28 31 20 Rate Blood Pressure 146/97 143/96 (mmHg) O2 Sat by Pulse 91 90 91 Oximetry 05/06/17 05/06/17 05/06/17 09:31 10:00 10:01 Temperature Pulse Rate 107 107 106 Respiratory 27 31 31 Rate Blood Pressure 157/109 146/94 (mmHg) O2 Sat by Pulse 93 91 93 Oximetry 05/06/17 05/06/17 05/06/17 10:31 11:00 11:01 Temperature Pulse Rate 105 94 102 Respiratory 31 31 26 Rate Blood Pressure 148/95 144/89 (mmHg) O2 Sat by Pulse 93 91 92 Oximetry 05/06/17 05/06/17 05/06/17 11:36 12:00 12:31 Temperature 98.0 F Pulse Rate 97 97 96 Respiratory 27 34 40 Rate Blood Pressure 128/77 136/82 140/80 (mmHg) O2 Sat by Pulse 91 93 91 Oximetry 05/06/17 05/06/17 05/06/17 13:00 13:01 13:31 Temperature Pulse Rate 99 98 100 Respiratory 34 43 31 Rate Blood Pressure 141/90 146/95 (mmHg) O2 Sat by Pulse 92 92 92 Oximetry 05/06/17 05/06/17 05/06/17 14:00 14:01 14:31 Temperature Pulse Rate 101 99 99 Respiratory 31 29 31 Rate Blood Pressure 145/85 132/80 (mmHg) O2 Sat by Pulse 92 93 92 Oximetry 05/06/17 05/06/17 05/06/17 15:00 15:01 15:31 Temperature Pulse Rate 96 94 87 Respiratory 25 30 17 Rate Blood Pressure 133/87 135/77 (mmHg) O2 Sat by Pulse 93 94 95 Oximetry 05/06/17 16:00 Temperature 98.3 F Pulse Rate Respiratory Rate Blood Pressure (mmHg) O2 Sat by Pulse Oximetry Oxygen Devices in Use Now: High Flow Nasal Cannula - 10L-93-95% Appearance: Elderly obese male sitting up in a chair, NAD Eyes: No Scleral Icterus Ears/Nose/Mouth/Throat: Mucous Membranes Moist Respiratory: Symmetrical Chest Expansion and Respiratory Effort, Clear to Auscultation - diminished breath sounds at the bases Cardiovascular: NL Sounds; No Murmurs; No JVD, - - irregularly irregular, controlled rate, 1-2+ LE edema L>R Abdominal: NL Sounds; No Tenderness; No Distention Extremities: No Clubbing, Cyanosis Skin: No Nodules or Sclerosis, - - wound vac on L 5th toe amputation site, L heel ulcer unstageable as eschar in center of wound-no significant improvement Neurological: Alert and Oriented x 3 Result Diagrams: 05/03/17 05:55 05/03/17 05:55 Microbiology and Other Data: Microbiology 05/02/17 08:43 Nasal Screen MRSA (PCR)(EDA) - Final Nasal Mrsa Negative Assess/Plan/Problems-Billing Mr Luevano is a 67 yo M who has a h/o afib, suspected MOOKIE, type II DM, HTN, HLD , alcoholism and anxiety/depression who presented to the wound center for routine follow up and was found to have a worsened L heel wound in addition to possible cellulitis about the L 5th toe/ray amputation site. - Patient Problems (1) Acute respiratory failure with hypoxia Current Visit: Yes Status: Acute Code(s): J96.01 - ACUTE RESPIRATORY FAILURE WITH HYPOXIA SNOMED Code(s): 17925597 Comment: Overall pt is improving -now on 10L salter canula. Respiratory failure likely secondary to R sided pneumonia. Continue broad spectrum Abx to cover likely pneumonia. (2) Pulmonary edema Current Visit: Yes Status: Acute Code(s): J81.1 - CHRONIC PULMONARY EDEMA SNOMED Code(s): 06500633 Comment: No evidence of pulmonary edema at this time. (3) Cellulitis of foot without toes, left Current Visit: Yes Status: Acute Code(s): L03.116 - CELLULITIS OF LEFT LOWER LIMB SNOMED Code(s): 714920304 Comment: Continue vanco, cefepime and flagyl for now. CT foot did not reveal any evidence of abscess. Wound vac placed 05/06/17. Pt to be seen 2x weekly while hospitalized and will need to follow up at the wound center after d/c. (4) Unstageable pressure ulcer of heel Current Visit: Yes Status: Acute Code(s): L89.600 - PRESSURE ULCER OF UNSPECIFIED HEEL, UNSTAGEABLE SNOMED Code(s): 024785446 Comment: Continue santly to the wound qod. Continue pressure relieving measures. (5) Hyponatremia Current Visit: Yes Status: Acute Code(s): E87.1 - HYPO-OSMOLALITY AND HYPONATREMIA SNOMED Code(s): 73269379 Comment: Resolved. (6) Alcoholism Current Visit: Yes Status: Acute Code(s): F10.20 - ALCOHOL DEPENDENCE, UNCOMPLICATED SNOMED Code(s): 0806110 Comment: The patient began to go through significant alcohol withdrawal the day after admission. He has been on the [place] protocol and does not appear to have any further ongoing alcohol withdrawal. (7) Atrial fibrillation Current Visit: Yes Status: Chronic Code(s): I48.91 - UNSPECIFIED ATRIAL FIBRILLATION SNOMED Code(s): 71712119 Comment: HR is controlled. Continue metoprolol XL 100mg qAM and 25mg qPM, continue xarelto. (8) HTN (hypertension) Current Visit: Yes Status: Chronic Code(s): I10 - ESSENTIAL (PRIMARY) HYPERTENSION SNOMED Code(s): 89937037 Comment: BP is under better control. Continue current medication regimen. (9) Type 2 diabetes mellitus Current Visit: Yes Status: Chronic Comment: Sugars are under very good control. Continue to follow. (10) Depression with anxiety Current Visit: Yes Status: Chronic Comment: Continue citalopram. (11) BPH (benign prostatic hyperplasia) Current Visit: Yes Status: Chronic Code(s): N40.0 - BENIGN PROSTATIC HYPERPLASIA WITHOUT LOWER URINRY TRACT SYMP SNOMED Code(s): 472455797 Comment: Continue flomax. (12) HLD (hyperlipidemia) Current Visit: Yes Status: Chronic Code(s): E78.5 - HYPERLIPIDEMIA, UNSPECIFIED SNOMED Code(s): 01004149 Comment: Continue lipitor. (13) DVT prophylaxis Current Visit: Yes Status: Acute Code(s): GLM1980 - SNOMED Code(s): 200324587 Comment: xarelto (14) Full code status Current Visit: Yes Status: Acute Code(s): Z78.9 - OTHER SPECIFIED HEALTH STATUS SNOMED Code(s): 301427879
[2017-05-06] MEDS: Multivitamins/Minerals TAB PO SCH (21:21)
[2017-05-06] MEDS: Citalopram TAB* 20 MG PO SCH (21:21)
[2017-05-06] MEDS: Thiamine TAB* 100 MG TAB PO SCH (21:24)
[2017-05-06] MEDS: CMCS - Melatonin (NF) 3 MG TAB PO PRN (21:24)
[2017-05-06] MEDS: Metoprolol Succinate XL TAB* 25 MG PO SCH (21:24)
[2017-05-06] MEDS: Losartan TAB* 25 MG PO SCH (21:25)
[2017-05-06] MEDS: Tamsulosin CAP* 0.4 MG PO SCH (21:26)
[2017-05-06] MEDS: Rivaroxaban TAB(*) 20 MG TAB PO SCH (21:26)
[2017-05-06] MEDS: Atorvastatin* 20 MG TAB PO SCH (21:33)
[2017-05-06] MEDS ORDERED: LORazepam INJ* 2 MG/ML 1 ML VIAL IV PUSH ONE (23:46)
[2017-05-06] MEDS ORDERED: LORazepam INJ* 2 MG/ML 1 ML VIAL ONE (23:51)
[2017-05-07] MEDS: Cefepime 1 GM in Dextrose(*) 1 GM/50 ML BAG IV SCH (05:09)
[2017-05-07] MEDS: Vancomycin(*) 1,500 MG in NS 0.9% 250 ML* 250 ML IVPB SCH (05:49)
[2017-05-07 05:50] LABS: Hematocrit 33 % (42-52); Hemoglobin 11.1 g/dl (14.0-18.0); Mean Corpuscular HGB Conc 34 g/dl (31-36); Mean Corpuscular Hemoglobin 34 pg (27-31); Mean Corpuscular Volume 100 fL (80-94); Mean Platelet Volume 9 um3 (7.4-10.4); Platelet Count 147 10^3/ul (150-450); Red Cell Distribution Width 14 % (10.5-15); White Blood Count 7.3 10^3/ul (3.5-10.8)
[2017-05-07 06:56] LABS: EGFR Non-African American 106.5 (>60)
[2017-05-07] MEDS: Senna TAB PO SCH ×2 (08:24→21:03)
[2017-05-07] MEDS: metroNIDAZOLE TAB* 250 MG PO SCH ×2 (08:24→21:03)
[2017-05-07] MEDS: Docusate CAP* 100 MG PO SCH ×2 (08:24→21:04)
[2017-05-07] MEDS: Metoprolol Succinate XL TAB* 100 MG PO SCH (08:24)
[2017-05-07] MEDS: amLODIPine TAB* 5 MG PO SCH (08:24)
[2017-05-07] MEDS: Insulin LISPRO* 1 UNITS UNIT SUBCUT SCH ×4 (08:25→21:12)
[2017-05-07] MEDS ORDERED: Furosemide IV* 10 MG/ML 2 ML VIAL (20 MG) IV ONE (12:15)
--- NOTE | 2017-05-07 12:16 | PN ---
Subjective Date of Service: 05/07/17 Interval History: Pt is feeling well today. He states however he has not been sleeping well recently. He just had a BM. He is interested in going to [facility] for rehab. Objective Active Medications: Acetaminophen (Tylenol Tab*) 650 mg PO Q4H PRN PRN Reason: FEVER OR PAIN Last Admin: 05/05/17 15:13 Dose: 650 mg Amlodipine Besylate (Norvasc Tab*) 10 mg PO DAILY [facility] Last Admin: 05/07/17 08:24 Dose: 10 mg Atorvastatin Calcium (Lipitor*) 20 mg PO BEDTIME [facility] Last Admin: 05/06/17 21:33 Dose: 20 mg Citalopram Hydrobromide (Celexa Tab*) 20 mg PO 2100 [facility] Last Admin: 05/06/17 21:21 Dose: 20 mg Collagenase (Santyl 250 Mg/Gm Oint*) 1 applic TOPICAL .SEE INSTRUCTIONS [facility] Dextrose (D50w Syringe 50 Ml*) 12.5 gm IV PUSH .FOR FS < 60 - SS PRN PRN Reason: FS < 60 Diazepam (Valium Tab(*)) 2 mg PO Q8H PRN PRN Reason: anxiety Docusate Sodium (Colace Cap*) 100 mg PO BID [facility] Last Admin: 05/07/17 08:24 Dose: 100 mg Hydralazine HCl (Apresoline Iv*) 10 mg IV Q4H PRN PRN Reason: Systolic >170 Last Admin: 05/04/17 21:13 Dose: 10 mg Vancomycin HCl 1,500 mg/ (Sodium Chloride) 250 mls @ 166.667 mls/hr IVPB Q12H [facility] Last Admin: 05/07/17 05:49 Dose: 166.667 mls/hr Cefepime HCl (Maxipime 1 Gm In Dextrose Duplex (*)) 1 gm in 50 mls @ 100 mls/ hr IV Q12H [facility] Last Admin: 05/07/17 05:09 Dose: 100 mls/hr Insulin Human Lispro (Humalog*) 0 units SUBCUT ACHS [facility] PRN Reason: Protocol Last Admin: 05/07/17 08:25 Dose: 2 units Losartan Potassium (Cozaar Tab*) 100 mg PO 2100 [facility] Last Admin: 05/06/17 21:25 Dose: 100 mg Melatonin (Melatonin (Nf)) 3 mg PO BEDTIME PRN; Protocol PRN Reason: SLEEP Last Admin: 05/06/17 21:24 Dose: 3 mg Metoprolol Succinate (Toprol Xl Tab*) 100 mg PO DAILY [facility] Last Admin: 05/07/17 08:24 Dose: 100 mg Metoprolol Succinate (Toprol Xl Tab*) 25 mg PO BEDTIME [facility] Last Admin: 05/06/17 21:24 Dose: 25 mg Metronidazole (Flagyl Tab*) 500 mg PO BID [facility] Last Admin: 05/07/17 08:24 Dose: 500 mg Multivitamins/Minerals (Theragran/Minerals Tab*) 1 tab PO 2100 [facility] Last Admin: 05/06/17 21:21 Dose: 1 tab Pharmacy Consult (Vancomycin Per Pharmacy*) 1 note FOLLOW UP . PRN PRN Reason: PER PROTOCOL Rivaroxaban (Xarelto(*)) 20 mg PO 2100 [facility] Last Admin: 05/06/17 21:26 Dose: 20 mg Senna (Senokot Tab*) 1 tab PO BID [facility] Last Admin: 05/07/17 08:24 Dose: 1 tab Tamsulosin HCl (Flomax Cap*) 0.4 mg PO 2100 [facility] Last Admin: 05/06/17 21:26 Dose: 0.4 mg Thiamine HCl (Vitamin B-1 Tab*) 100 mg PO 2100 [facility] Last Admin: 05/06/17 21:24 Dose: 100 mg Vital Signs - 8 hr 05/07/17 05/07/17 05/07/17 04:31 05:00 05:01 Temperature Pulse Rate 99 95 100 Respiratory 46 28 28 Rate Blood Pressure 142/89 153/105 (mmHg) O2 Sat by Pulse 94 92 93 Oximetry 05/07/17 05/07/17 05/07/17 06:00 06:17 06:30 Temperature Pulse Rate 107 99 102 Respiratory 27 27 26 Rate Blood Pressure 146/92 165/92 (mmHg) O2 Sat by Pulse 92 92 91 Oximetry 05/07/17 05/07/17 05/07/17 06:35 07:00 07:30 Temperature Pulse Rate 108 97 111 Respiratory 32 31 40 Rate Blood Pressure 148/100 149/96 150/80 (mmHg) O2 Sat by Pulse 92 92 92 Oximetry 05/07/17 05/07/17 05/07/17 07:35 08:00 08:30 Temperature 98.3 F Pulse Rate 108 115 Respiratory 30 31 29 Rate Blood Pressure 154/101 (mmHg) O2 Sat by Pulse 93 93 Oximetry 05/07/17 05/07/17 05/07/17 09:00 09:01 09:31 Temperature Pulse Rate 119 114 103 Respiratory 36 27 20 Rate Blood Pressure 158/96 117/83 (mmHg) O2 Sat by Pulse 91 91 92 Oximetry 05/07/17 05/07/17 05/07/17 10:00 10:01 11:00 Temperature Pulse Rate 110 113 Respiratory 28 18 25 Rate Blood Pressure 108/88 (mmHg) O2 Sat by Pulse 92 94 Oximetry Oxygen Devices in Use Now: High Flow Nasal Cannula Appearance: Morbidly obese, middle aged male sitting in a chair, NAD Eyes: No Scleral Icterus Ears/Nose/Mouth/Throat: Mucous Membranes Moist Respiratory: Symmetrical Chest Expansion and Respiratory Effort, Clear to Auscultation - diminished breath sounds to the R basee Cardiovascular: NL Sounds; No Murmurs; No JVD, RRR Abdominal: NL Sounds; No Tenderness; No Distention Extremities: No Clubbing, Cyanosis Skin: No Nodules or Sclerosis, - - wound vac in place at surgical incision site , L heel ulcer unchanged Neurological: Alert and Oriented x 3 Result Diagrams: 05/07/17 05:30 05/07/17 05:30 Microbiology and Other Data: Microbiology 05/02/17 08:43 Nasal Screen MRSA (PCR)(EDA) - Final Nasal Mrsa Negative Assess/Plan/Problems-Billing Mr Luevano is a 67 yo M who has a h/o afib, suspected MOOKIE, type II DM, HTN, HLD , alcoholism and anxiety/depression who presented to the wound center for routine follow up and was found to have a worsened L heel wound in addition to possible cellulitis about the L 5th toe/ray amputation site. - Patient Problems (1) Acute respiratory failure with hypoxia Current Visit: Yes Status: Acute Code(s): J96.01 - ACUTE RESPIRATORY FAILURE WITH HYPOXIA SNOMED Code(s): 23392493 Comment: Overall pt is improving -now on 10L salter canula but can likely be weaned down further. Respiratory failure likely secondary to R sided pneumonia. Continue broad spectrum Abx to cover likely pneumonia. (2) Pulmonary edema Current Visit: Yes Status: Acute Code(s): J81.1 - CHRONIC PULMONARY EDEMA SNOMED Code(s): 88362257 Comment: Will give lasix 20mg IV x1 today an monitor for an improvement in his respiratory status (ie RR and O2 needs). (3) Cellulitis of foot without toes, left Current Visit: Yes Status: Acute Code(s): L03.116 - CELLULITIS OF LEFT LOWER LIMB SNOMED Code(s): 919854940 Comment: The patient presented with cellulitis secondary to surgical wound dehiscence and infection. Continue vanco, cefepime and flagyl for now. CT foot did not reveal any evidence of abscess. Wound vac placed 05/06/17. Pt to be seen 2x weekly while hospitalized and will need to follow up at the wound center after d/c. No evidence of cellulitis at this time. (4) Unstageable pressure ulcer of heel Current Visit: Yes Status: Acute Code(s): L89.600 - PRESSURE ULCER OF UNSPECIFIED HEEL, UNSTAGEABLE SNOMED Code(s): 831580829 Comment: Continue santly to the wound qod. Continue pressure relieving measures. (5) Hyponatremia Current Visit: Yes Status: Acute Code(s): E87.1 - HYPO-OSMOLALITY AND HYPONATREMIA SNOMED Code(s): 37013436 Comment: Resolved. (6) Alcoholism Current Visit: Yes Status: Acute Code(s): F10.20 - ALCOHOL DEPENDENCE, UNCOMPLICATED SNOMED Code(s): 2114602 Comment: The patient's acute alcohol withdrawal has resolved. He is stable off the [place] protocol. (7) Atrial fibrillation Current Visit: Yes Status: Chronic Code(s): I48.91 - UNSPECIFIED ATRIAL FIBRILLATION SNOMED Code(s): 03375051 Comment: HR is not as well controlled today. ? secondary to anxiety. Continue metoprolol at current dose and xarelto. If HR still not controlled tomorrow additional adjustments will be needed. (8) HTN (hypertension) Current Visit: Yes Status: Chronic Code(s): I10 - ESSENTIAL (PRIMARY) HYPERTENSION SNOMED Code(s): 59852111 Comment: BP is under better control. Continue current medication regimen. (9) Type 2 diabetes mellitus Current Visit: Yes Status: Chronic Comment: Sugars are under very good control. Continue to follow. (10) Depression with anxiety Current Visit: Yes Status: Chronic Comment: Continue citalopram. Add prn valium-pt was taking intermittently at home. (11) BPH (benign prostatic hyperplasia) Current Visit: Yes Status: Chronic Code(s): N40.0 - BENIGN PROSTATIC HYPERPLASIA WITHOUT LOWER URINRY TRACT SYMP SNOMED Code(s): 283909964 Comment: Continue flomax. (12) HLD (hyperlipidemia) Current Visit: Yes Status: Chronic Code(s): E78.5 - HYPERLIPIDEMIA, UNSPECIFIED SNOMED Code(s): 09180671 Comment: Continue lipitor. (13) DVT prophylaxis Current Visit: Yes Status: Acute Code(s): CQR3253 - SNOMED Code(s): 349211367 Comment: raymond (14) Full code status Current Visit: Yes Status: Acute Code(s): Z78.9 - OTHER SPECIFIED HEALTH STATUS SNOMED Code(s): 593640417
[2017-05-07] MEDS: Cefepime 2 GM in Dextrose(*) 2 GM/50 ML BAG IV SCH (19:21)
[2017-05-07] MEDS: Losartan TAB* 25 MG PO SCH (21:03)
[2017-05-07] MEDS: Multivitamins/Minerals TAB PO SCH (21:04)
[2017-05-07] MEDS: Rivaroxaban TAB(*) 20 MG TAB PO SCH (21:04)
[2017-05-07] MEDS: Thiamine TAB* 100 MG TAB PO SCH (21:04)
[2017-05-07] MEDS: Metoprolol Succinate XL TAB* 25 MG PO SCH (21:04)
[2017-05-07] MEDS: Atorvastatin* 20 MG TAB PO SCH (21:04)
[2017-05-07] MEDS: Tamsulosin CAP* 0.4 MG PO SCH (21:04)
[2017-05-07] MEDS: Citalopram TAB* 20 MG PO SCH (21:04)
[2017-05-07] MEDS: Diazepam TAB(*) 2 MG PO PRN (21:19)
[2017-05-07] MEDS: CMCS - Melatonin (NF) 3 MG TAB PO PRN (22:37)
[2017-05-07] MEDS: Acetaminophen TAB* 325 MG PO PRN (22:37)
[2017-05-08] MEDS: Cefepime 2 GM in Dextrose(*) 2 GM/50 ML BAG IV SCH ×2 (06:07→17:30)
[2017-05-08] MEDS: Insulin LISPRO* 1 UNITS UNIT SUBCUT SCH ×4 (09:01→20:28)
[2017-05-08] MEDS: Senna TAB PO SCH ×2 (09:02→20:29)
[2017-05-08] MEDS: metroNIDAZOLE TAB* 250 MG PO SCH ×2 (09:02→20:30)
[2017-05-08] MEDS: amLODIPine TAB* 5 MG PO SCH (09:02)
[2017-05-08] MEDS: Docusate CAP* 100 MG PO SCH ×2 (09:02→20:29)
[2017-05-08] MEDS: Metoprolol Succinate XL TAB* 100 MG PO SCH (09:02)
[2017-05-08] MEDS: Folic Acid TAB* 1 MG PO SCH (15:13)
--- NOTE | 2017-05-08 15:20 | PN ---
Subjective Date of Service: 05/08/17 Interval History: Patient has no new complaints. He says breathing is OK, using O2 during day and CPAP at night. Admits to drinking excessive wine prior to admission. Prior to L 5th toe injury in end of Mar, was ambulatory at home. After amputation in early Apr was discharged, walked with walker. Now can sit on edge of bed, or get to chair w/ Lauryn. Family History: Unchanged from Admission Social History: Unchanged from Admission Past Medical History: Unchanged from Admission Objective Active Medications: Acetaminophen (Tylenol Tab*) 650 mg PO Q4H PRN PRN Reason: FEVER OR PAIN Last Admin: 05/07/17 22:37 Dose: 650 mg Amlodipine Besylate (Norvasc Tab*) 10 mg PO DAILY [facility] Last Admin: 05/08/17 09:02 Dose: 10 mg Atorvastatin Calcium (Lipitor*) 20 mg PO BEDTIME [facility] Last Admin: 05/07/17 21:04 Dose: 20 mg Citalopram Hydrobromide (Celexa Tab*) 20 mg PO 2100 [facility] Last Admin: 05/07/17 21:04 Dose: 20 mg Collagenase (Santyl 250 Mg/Gm Oint*) 1 applic TOPICAL .SEE INSTRUCTIONS [facility] Dextrose (D50w Syringe 50 Ml*) 12.5 gm IV PUSH .FOR FS < 60 - SS PRN PRN Reason: FS < 60 Diazepam (Valium Tab(*)) 2 mg PO Q8H PRN PRN Reason: anxiety Last Admin: 05/07/17 21:19 Dose: 2 mg Docusate Sodium (Colace Cap*) 100 mg PO BID [facility] Last Admin: 05/08/17 09:02 Dose: 100 mg Folic Acid (Folvite Tab*) 1 mg PO DAILY [facility] Last Admin: 05/08/17 15:13 Dose: 1 mg Hydralazine HCl (Apresoline Iv*) 10 mg IV Q4H PRN PRN Reason: Systolic >170 Last Admin: 05/04/17 21:13 Dose: 10 mg Cefepime HCl (Maxipime 2 Gm In Dextrose Duplex (*)) 2 gm in 50 mls @ 100 mls/ hr IV 0630,1830 [facility] Last Admin: 05/08/17 06:07 Dose: 100 mls/hr Insulin Human Lispro (Humalog*) 0 units SUBCUT ACHS [facility] PRN Reason: Protocol Last Admin: 05/08/17 12:47 Dose: 2 units Losartan Potassium (Cozaar Tab*) 100 mg PO 2100 [facility] Last Admin: 05/07/17 21:03 Dose: 100 mg Melatonin (Melatonin (Nf)) 3 mg PO BEDTIME PRN; Protocol PRN Reason: SLEEP Last Admin: 05/07/17 22:37 Dose: 3 mg Metoprolol Succinate (Toprol Xl Tab*) 100 mg PO DAILY [facility] Last Admin: 05/08/17 09:02 Dose: 100 mg Metoprolol Succinate (Toprol Xl Tab*) 25 mg PO BEDTIME [facility] Last Admin: 05/07/17 21:04 Dose: 25 mg Metronidazole (Flagyl Tab*) 500 mg PO BID [facility] Last Admin: 05/08/17 09:02 Dose: 500 mg Multivitamins/Minerals (Theragran/Minerals Tab*) 1 tab PO 2100 [facility] Last Admin: 05/07/17 21:04 Dose: 1 tab Rivaroxaban (Xarelto(*)) 20 mg PO 2100 [facility] Last Admin: 05/07/17 21:04 Dose: 20 mg Senna (Senokot Tab*) 1 tab PO BID [facility] Last Admin: 05/08/17 09:02 Dose: 1 tab Tamsulosin HCl (Flomax Cap*) 0.4 mg PO 2100 [facility] Last Admin: 05/07/17 21:04 Dose: 0.4 mg Thiamine HCl (Vitamin B-1 Tab*) 100 mg PO 2100 [facility] Last Admin: 05/07/17 21:04 Dose: 100 mg Vital Signs - 8 hr 05/08/17 05/08/17 05/08/17 08:51 09:09 11:12 Temperature 36.8 C Pulse Rate 85 Respiratory 20 18 Rate Blood Pressure 133/84 (mmHg) O2 Sat by Pulse 95 97 Oximetry Oxygen Devices in Use Now: Nasal Cannula Appearance: alert, talkative Eyes: No Scleral Icterus Ears/Nose/Mouth/Throat: Clear Oropharnyx Neck: No Thyroid Enlargement, Masses Respiratory: Clear to Auscultation Cardiovascular: NL Sounds; No Murmurs; No JVD, RRR Abdominal: NL Sounds; No Tenderness; No Distention Extremities: - - 2+ edema bilat LE Skin: - - L 5th toe amputated, L ankle in bandage, small bandage RT heel Neurological: Alert and Oriented x 3 Lines/Tubes/Other Access: Clean, Dry and Intact Peripheral IV Nutrition: Taking PO's Result Diagrams: 05/07/17 05:30 05/07/17 05:30 Microbiology and Other Data: Microbiology 05/03/17 06:06 Blood Venous Aerobic Blood Culture - Final 05/03/17 06:06 Blood Venous Anaerobic Blood Culture - Final No Growth Day 5 No Growth Day 5 05/03/17 06:00 Urine Urine Culture - Final No Growth (<1,000 CFU/mL) 05/03/17 06:00 Blood Venous Aerobic Blood Culture - Final 05/03/17 06:00 Blood Venous Blood MRSA/MSSA (PCR) - Final Staphylococcus Epidermidis Mrsa Negative S.aureus Negative No Growth Day 5 Assess/Plan/Problems-Billing Mr Luevano is a 67 yo M who has a h/o afib, suspected MOOKIE, type II DM, HTN, HLD , alcoholism and anxiety/depression who presented to the wound center for routine follow up and was found to have a worsened L heel wound in addition to possible cellulitis about the L 5th toe/ray amputation site. - Patient Problems (1) Cellulitis of foot without toes, left Current Visit: Yes Status: Acute Priority: Medium Code(s): L03.116 - CELLULITIS OF LEFT LOWER LIMB SNOMED Code(s): 491446671 Comment: - Cellulitis resolving. - Continue vanco, cefepime and flagyl for now due to suspicion infected wounds - Wound vac placed 05/06/17. Pt to be seen 2x weekly while hospitalized (2) Acute respiratory failure with hypoxia Current Visit: Yes Status: Acute Priority: High Code(s): J96.01 - ACUTE RESPIRATORY FAILURE WITH HYPOXIA SNOMED Code(s): 33651141 Comment: - CT on admission showed RUL infiltrate - continue vanco/cefipime, as no clear organism identified (3) Unstageable pressure ulcer of heel Current Visit: Yes Status: Acute Priority: Low Code(s): L89.600 - PRESSURE ULCER OF UNSPECIFIED HEEL, UNSTAGEABLE SNOMED Code(s): 535631446 Comment: Continue santly to the wound qod. Continue pressure relieving measures. (4) DVT prophylaxis Current Visit: Yes Status: Acute Priority: Low Code(s): SUM9210 - SNOMED Code(s): 881717336 Comment: raymond (5) Type 2 diabetes mellitus Current Visit: Yes Status: Chronic Priority: Medium Comment: Sugars are under very good control. Continue to follow. Status and Disposition: Spoke with nurse on PMRU. Dr. Ba saw patient, is awaiting OT eval and insurance authorization Wednesday
[2017-05-08] MEDS: Metoprolol Succinate XL TAB* 25 MG PO SCH (20:29)
[2017-05-08] MEDS: Losartan TAB* 25 MG PO SCH (20:29)
[2017-05-08] MEDS: Thiamine TAB* 100 MG TAB PO SCH (20:29)
[2017-05-08] MEDS: Rivaroxaban TAB(*) 20 MG TAB PO SCH (20:30)
[2017-05-08] MEDS: Tamsulosin CAP* 0.4 MG PO SCH (20:30)
[2017-05-08] MEDS: Atorvastatin* 20 MG TAB PO SCH (20:30)
[2017-05-08] MEDS: Citalopram TAB* 20 MG PO SCH (20:30)
[2017-05-08] MEDS: Multivitamins/Minerals TAB PO SCH (20:30)
[2017-05-08] MEDS: CMCS - Melatonin (NF) 3 MG TAB PO PRN (20:36)
[2017-05-08] MEDS: Diazepam TAB(*) 2 MG PO PRN (20:36)
[2017-05-09] MEDS: Cefepime 2 GM in Dextrose(*) 2 GM/50 ML BAG IV SCH ×2 (05:51→17:25)
[2017-05-09] MEDS: metroNIDAZOLE TAB* 250 MG PO SCH ×2 (08:29→21:40)
[2017-05-09] MEDS: Folic Acid TAB* 1 MG PO SCH (08:29)
[2017-05-09] MEDS: amLODIPine TAB* 5 MG PO SCH (08:29)
[2017-05-09] MEDS: Docusate CAP* 100 MG PO SCH ×2 (08:29→21:36)
[2017-05-09] MEDS: Senna TAB PO SCH ×2 (08:29→21:36)
[2017-05-09] MEDS: Metoprolol Succinate XL TAB* 100 MG PO SCH (08:29)
[2017-05-09] MEDS: Insulin LISPRO* 1 UNITS UNIT SUBCUT SCH ×4 (08:30→21:42)
--- NOTE | 2017-05-09 15:46 | PN ---
Subjective Date of Service: 05/09/17 Interval History: No new complaints. Patient still not sure about alcohol abuse. He reports he is not sleeping well, wide awake at 11pm. Melatonin is not helpful. Family History: Unchanged from Admission Social History: Unchanged from Admission Past Medical History: Unchanged from Admission Objective Active Medications: Acetaminophen (Tylenol Tab*) 650 mg PO Q4H PRN PRN Reason: FEVER OR PAIN Last Admin: 05/07/17 22:37 Dose: 650 mg Amlodipine Besylate (Norvasc Tab*) 10 mg PO DAILY [facility] Last Admin: 05/09/17 08:29 Dose: 10 mg Atorvastatin Calcium (Lipitor*) 20 mg PO BEDTIME [facility] Last Admin: 05/08/17 20:30 Dose: 20 mg Citalopram Hydrobromide (Celexa Tab*) 20 mg PO 2100 [facility] Last Admin: 05/08/17 20:30 Dose: 20 mg Collagenase (Santyl 250 Mg/Gm Oint*) 1 applic TOPICAL .SEE INSTRUCTIONS [facility] Dextrose (D50w Syringe 50 Ml*) 12.5 gm IV PUSH .FOR FS < 60 - SS PRN PRN Reason: FS < 60 Diazepam (Valium Tab(*)) 2 mg PO Q8H PRN PRN Reason: anxiety Last Admin: 05/08/17 20:36 Dose: 2 mg Docusate Sodium (Colace Cap*) 100 mg PO BID [facility] Last Admin: 05/09/17 08:29 Dose: 100 mg Folic Acid (Folvite Tab*) 1 mg PO DAILY [facility] Last Admin: 05/09/17 08:29 Dose: 1 mg Hydralazine HCl (Apresoline Iv*) 10 mg IV Q4H PRN PRN Reason: Systolic >170 Last Admin: 05/04/17 21:13 Dose: 10 mg Cefepime HCl (Maxipime 2 Gm In Dextrose Duplex (*)) 2 gm in 50 mls @ 100 mls/ hr IV 0630,1830 [facility] Last Admin: 05/09/17 05:51 Dose: 100 mls/hr Insulin Human Lispro (Humalog*) 0 units SUBCUT ACHS [facility] PRN Reason: Protocol Last Admin: 05/09/17 12:11 Dose: 3 units Losartan Potassium (Cozaar Tab*) 100 mg PO 2100 [facility] Last Admin: 05/08/17 20:29 Dose: 100 mg Melatonin (Melatonin (Nf)) 3 mg PO BEDTIME PRN; Protocol PRN Reason: SLEEP Last Admin: 05/08/17 20:36 Dose: 3 mg Metoprolol Succinate (Toprol Xl Tab*) 100 mg PO DAILY [facility] Last Admin: 05/09/17 08:29 Dose: 100 mg Metoprolol Succinate (Toprol Xl Tab*) 25 mg PO BEDTIME [facility] Last Admin: 05/08/17 20:29 Dose: 25 mg Metronidazole (Flagyl Tab*) 500 mg PO BID [facility] Last Admin: 05/09/17 08:29 Dose: 500 mg Multivitamins/Minerals (Theragran/Minerals Tab*) 1 tab PO 2100 [facility] Last Admin: 05/08/17 20:30 Dose: 1 tab Rivaroxaban (Xarelto(*)) 20 mg PO 2100 [facility] Last Admin: 05/08/17 20:30 Dose: 20 mg Senna (Senokot Tab*) 1 tab PO BID [facility] Last Admin: 05/09/17 08:29 Dose: 1 tab Tamsulosin HCl (Flomax Cap*) 0.4 mg PO 2100 [facility] Last Admin: 05/08/17 20:30 Dose: 0.4 mg Thiamine HCl (Vitamin B-1 Tab*) 100 mg PO 2100 [facility] Last Admin: 05/08/17 20:29 Dose: 100 mg Vital Signs - 8 hr 05/09/17 05/09/17 05/09/17 08:36 10:58 11:37 Temperature 36.9 C Pulse Rate 91 Respiratory 18 18 Rate Blood Pressure 144/75 (mmHg) O2 Sat by Pulse 94 93 Oximetry Oxygen Devices in Use Now: High Flow Nasal Cannula Appearance: no distress Eyes: No Scleral Icterus Neck: NL Appearance and Movements; NL JVP Respiratory: Symmetrical Chest Expansion and Respiratory Effort, Clear to Auscultation Cardiovascular: NL Sounds; No Murmurs; No JVD Extremities: - - LT fifth toe amputated Skin: - - LT ankle in large bandage, RT heel w/ small bandage Neurological: Alert and Oriented x 3 Lines/Tubes/Other Access: Clean, Dry and Intact Peripheral IV Result Diagrams: 05/07/17 05:30 05/07/17 05:30 Additional Lab and Data: Laboratory Tests 05/08/17 05/08/17 05/08/17 12:02 16:37 20:14 POC Glucose (mg/dL) 137 H 133 H 138 H 05/09/17 05/09/17 05/09/17 08:22 10:04 11:44 POC Glucose (mg/dL) 133 H 171 H 155 H Assess/Plan/Problems-Billing Mr Luevano is a 67 yo M who has a h/o afib, suspected MOOKIE, type II DM, HTN, HLD , alcoholism and anxiety/depression who presented to the wound center for routine follow up and was found to have a worsened L heel wound in addition to possible cellulitis about the L 5th toe/ray amputation site. - Patient Problems (1) Cellulitis of foot without toes, left Current Visit: Yes Status: Acute Priority: Medium Code(s): L03.116 - CELLULITIS OF LEFT LOWER LIMB SNOMED Code(s): 850889253 Comment: - Cellulitis resolving. - Continue vanco, cefepime and flagyl for now due to suspicion infected wounds - Wound vac placed 05/06/17. Pt to be seen 2x weekly while hospitalized - will check with Dr. Barnhart tomorrow re duration antibiotics (2) Acute respiratory failure with hypoxia Current Visit: Yes Status: Acute Priority: High Code(s): J96.01 - ACUTE RESPIRATORY FAILURE WITH HYPOXIA SNOMED Code(s): 46814926 Comment: - CT on admission showed RUL infiltrate - continue vanco/cefipime, as no clear organism identified - will check with Dr. Barnhart tomorrow re duration antibiotics (3) Unstageable pressure ulcer of heel Current Visit: Yes Status: Acute Priority: Low Code(s): L89.600 - PRESSURE ULCER OF UNSPECIFIED HEEL, UNSTAGEABLE SNOMED Code(s): 455329061 Comment: Continue santly to the wound qod. Continue pressure relieving measures. (4) DVT prophylaxis Current Visit: Yes Status: Acute Priority: Low Code(s): FOP6904 - SNOMED Code(s): 049298041 Comment: raymond (5) Type 2 diabetes mellitus Current Visit: Yes Status: Chronic Priority: Medium Comment: Sugars are under very good control. Continue to follow. Status and Disposition: Spoke with nurse on PMRU. Dr. Ba saw patient, is awaiting OT eval and insurance authorization Wednesday
[2017-05-09] MEDS ORDERED: Simethicone TAB* 80 MG TAB.CHEW PO PRN (17:31)
[2017-05-09] MEDS: Citalopram TAB* 20 MG PO SCH (21:36)
[2017-05-09] MEDS: Metoprolol Succinate XL TAB* 25 MG PO SCH (21:37)
[2017-05-09] MEDS: Tamsulosin CAP* 0.4 MG PO SCH (21:37)
[2017-05-09] MEDS: Losartan TAB* 25 MG PO SCH (21:38)
[2017-05-09] MEDS: Atorvastatin* 20 MG TAB PO SCH (21:39)
[2017-05-09] MEDS: Thiamine TAB* 100 MG TAB PO SCH (21:39)
[2017-05-09] MEDS: Multivitamins/Minerals TAB PO SCH (21:40)
[2017-05-09] MEDS: Rivaroxaban TAB(*) 20 MG TAB PO SCH (21:40)
[2017-05-10] MEDS: CMCS - Melatonin (NF) 3 MG TAB PO PRN (01:41)
[2017-05-10] MEDS: Diazepam TAB(*) 2 MG PO PRN (01:42)
[2017-05-10] MEDS: Cefepime 2 GM in Dextrose(*) 2 GM/50 ML BAG IV SCH ×2 (05:30→18:18)
[2017-05-10 06:22] LABS: ABS Basophils 0.1 10^3/ul (0-0.2); ABS Eosinophils 0.5 10^3/ul (0-0.6); ABS Lymphocytes 0.9 10^3/ul (1.0-4.8); ABS Monocytes 1.3 10^3/ul (0-0.8); ABS Neutrophils 6.8 10^3/ul (1.5-7.7); ABS Nucleated RBC 0 10^3/ul; Eosinophil % 5.5 % (0-6); Hematocrit 34 % (42-52); Hemoglobin 11.5 g/dl (14.0-18.0); Lymphocyte % 9.5 % (25-47); Mean Corpuscular HGB Conc 33 g/dl (31-36); Mean Corpuscular Hemoglobin 33 pg (27-31); Mean Corpuscular Volume 99 fL (80-94); Mean Platelet Volume 10 um3 (7.4-10.4); Nucleated Red Blood Cells % 0; Platelet Count 235 10^3/ul (150-450); Red Blood Count 3.48 10^6/ul (4.0-5.4); Red Cell Distribution Width 15 % (10.5-15); White Blood Count 9.6 10^3/ul (3.5-10.8)
[2017-05-10 06:40] LABS: EGFR Non-African American 93.2 (>60)
[2017-05-10] MEDS: Insulin LISPRO* 1 UNITS UNIT SUBCUT SCH ×4 (08:41→21:10)
[2017-05-10] MEDS: amLODIPine TAB* 5 MG PO SCH (10:48)
[2017-05-10] MEDS: metroNIDAZOLE TAB* 250 MG PO SCH ×2 (10:48→21:25)
[2017-05-10] MEDS: Metoprolol Succinate XL TAB* 100 MG PO SCH (10:48)
[2017-05-10] MEDS: Senna TAB PO SCH ×2 (10:48→21:27)
[2017-05-10] MEDS: Docusate CAP* 100 MG PO SCH ×2 (10:49→21:27)
[2017-05-10] MEDS: Folic Acid TAB* 1 MG PO SCH (10:49)
--- NOTE | 2017-05-10 14:31 | PN ---
Subjective Date of Service: 05/10/17 Interval History: Patient seen and examined at bedside. Denies fever, chills, shortness of breath , chest discomfort, N/V/D. Tele: Afib, rate 100-110's Family History: Unchanged from Admission Social History: Unchanged from Admission Past Medical History: Unchanged from Admission Objective Active Medications: Acetaminophen (Tylenol Tab*) 650 mg PO Q4H PRN Reason: FEVER OR PAIN Amlodipine Besylate (Norvasc Tab*) 10 mg PO DAILY [facility] Atorvastatin Calcium (Lipitor*) 20 mg PO BEDTIME [facility] Citalopram Hydrobromide (Celexa Tab*) 20 mg PO 2100 [facility] Collagenase (Santyl 250 Mg/Gm Oint*) 1 applic TOPICAL .SEE INSTRUCTIONS [facility] Dextrose (D50w Syringe 50 Ml*) 12.5 gm IV PUSH .FOR FS < 60 - SS PRN Reason: FS < 60 Diazepam (Valium Tab(*)) 2 mg PO Q8H PRN Reason: anxiety Docusate Sodium (Colace Cap*) 100 mg PO BID [facility] Folic Acid (Folvite Tab*) 1 mg PO DAILY [facility] Hydralazine HCl (Apresoline Iv*) 10 mg IV Q4H PRN Reason: Systolic >170 Cefepime HCl (Maxipime 2 Gm In Dextrose Duplex (*)) 2 gm in 50 mls @ 100 mls/ hr IV 0630,1830 [facility] Insulin Human Lispro (Humalog*) 0 units SUBCUT ACHS [facility] Losartan Potassium (Cozaar Tab*) 100 mg PO 2100 [facility] Melatonin (Melatonin (Nf)) 3 mg PO BEDTIME PRN; Protocol Reason: SLEEP Metoprolol Succinate (Toprol Xl Tab*) 100 mg PO DAILY [facility] Metoprolol Succinate (Toprol Xl Tab*) 25 mg PO BEDTIME [facility] Metronidazole (Flagyl Tab*) 500 mg PO BID [facility] Multivitamins/Minerals (Theragran/Minerals Tab*) 1 tab PO 2100 [facility] Rivaroxaban (Xarelto(*)) 20 mg PO 2100 [facility] Senna (Senokot Tab*) 1 tab PO BID [facility] Simethicone (Mylicon Tab*) 80 mg PO Q6H PRN Reason: INDIGESTION Tamsulosin HCl (Flomax Cap*) 0.4 mg PO 2100 [facility] Thiamine HCl (Vitamin B-1 Tab*) 100 mg PO 2100 [facility] Vital Signs - 8 hr 05/10/17 05/10/17 05/10/17 06:38 08:00 08:31 Temperature 97.8 F Pulse Rate 111 Respiratory 18 14 14 Rate Blood Pressure 132/71 (mmHg) O2 Sat by Pulse 95 Oximetry 05/10/17 05/10/17 10:04 11:17 Temperature 97.8 F Pulse Rate 118 Respiratory 18 Rate Blood Pressure 105/82 (mmHg) O2 Sat by Pulse 95 91 Oximetry Oxygen Devices in Use Now: High Flow Nasal Cannula - 7L Appearance: NAD, laying in bed Ears/Nose/Mouth/Throat: Mucous Membranes Moist Respiratory: Symmetrical Chest Expansion and Respiratory Effort, Clear to Auscultation - , diminished Cardiovascular: NL Sounds; No Murmurs; No JVD, - - Heart rate irregular Abdominal: NL Sounds; No Tenderness; No Distention Extremities: - - 1-2 bilateral LE and UE edema Skin: - - Dressing to right heel clean, dry and intact. Dressing to left heel intact with serous drainage. Wound vac to left 5th toe, intact Neurological: Alert and Oriented x 3, NL Muscle Strength and Tone Lines/Tubes/Other Access: Clean, Dry and Intact Peripheral IV - site benign Nutrition: Taking PO's Result Diagrams: 05/10/17 05:42 05/10/17 05:42 Additional Lab and Data: Laboratory Tests 05/08/17 05/08/17 05/08/17 12:02 16:37 20:14 POC Glucose (mg/dL) 137 H 133 H 138 H 05/09/17 05/09/17 05/09/17 08:22 10:04 11:44 POC Glucose (mg/dL) 133 H 171 H 155 H Microbiology and Other Data: Microbiology 05/03/17 06:06 Blood Venous Aerobic Blood Culture - Final 05/03/17 06:06 Blood Venous Anaerobic Blood Culture - Final No Growth Day 5 No Growth Day 5 05/03/17 06:00 Urine Urine Culture - Final No Growth (<1,000 CFU/mL) 05/03/17 06:00 Blood Venous Aerobic Blood Culture - Final 05/03/17 06:00 Blood Venous Blood MRSA/MSSA (PCR) - Final Staphylococcus Epidermidis Mrsa Negative S.aureus Negative No Growth Day 5 Assess/Plan/Problems-Billing Mr. Luevano is a 67 yo M with PMH significant for h/o afib, suspected MOOKIE, type II DM, HTN, HLD, alcoholism and anxiety/depression who presented to the wound center for routine follow up and was found to have a worsened L heel wound in addition to possible cellulitis about the L 5th toe/ray amputation site. - Patient Problems (1) Acute respiratory failure with hypoxia Code(s): J96.01 - ACUTE RESPIRATORY FAILURE WITH HYPOXIA SNOMED Code(s): 81384682 Comment: - CT on admission showed RUL infiltrate - Continue flagyl/cefipime, as no clear organism identified - Will discontinue ABX tomorrow (2) Pulmonary edema Code(s): J81.1 - CHRONIC PULMONARY EDEMA SNOMED Code(s): 66553341 Comment: - Received IV lasix 05/07 - Continue to monitor respiratory status (3) Cellulitis of foot without toes, left Code(s): L03.116 - CELLULITIS OF LEFT LOWER LIMB SNOMED Code(s): 366892526 Comment: - Cellulitis resolving. - Continue cefepime and flagyl for now due to suspicion infected wounds - Wound vac placed 05/06/17. Pt to be seen 2x weekly while hospitalized - Will discontinue IV ABX tomorrow (4) Unstageable pressure ulcer of heel Code(s): L89.600 - PRESSURE ULCER OF UNSPECIFIED HEEL, UNSTAGEABLE SNOMED Code (s): 566671795 Comment: - Continue santly to the wound qod. - Continue pressure relieving measures. (5) Hyponatremia Code(s): E87.1 - HYPO-OSMOLALITY AND HYPONATREMIA SNOMED Code(s): 15394958 Comment: - Mild - Continue to follow BMP (6) Alcoholism Code(s): F10.20 - ALCOHOL DEPENDENCE, UNCOMPLICATED SNOMED Code(s): 0055592 Comment: - The patient's acute alcohol withdrawal has resolved. - He is stable off the [facility] protocol. (7) Atrial fibrillation Code(s): I48.91 - UNSPECIFIED ATRIAL FIBRILLATION SNOMED Code(s): 85578575 Comment: - HR controlled today. - Continue metoprolol at current dose and xarelto. (8) HTN (hypertension) Code(s): I10 - ESSENTIAL (PRIMARY) HYPERTENSION SNOMED Code(s): 73833162 Comment: - BP is under better control, mostly normotensive. - Continue current medication regimen. (9) Type 2 diabetes mellitus Comment: - Glucose 110-140's - Continue Lispro SS (10) BPH (benign prostatic hyperplasia) Code(s): N40.0 - BENIGN PROSTATIC HYPERPLASIA WITHOUT LOWER URINRY TRACT SYMP SNOMED Code(s): 597106024 Comment: - Continue flomax. (11) Depression with anxiety Comment: - Continue citalopram and prn valium (12) HLD (hyperlipidemia) Code(s): E78.5 - HYPERLIPIDEMIA, UNSPECIFIED SNOMED Code(s): 96002415 Comment: - Continue lipitor. (13) DVT prophylaxis Code(s): XPB7666 - SNOMED Code(s): 164643574 Comment: - Xarelto (14) Full code status Code(s): Z78.9 - OTHER SPECIFIED HEALTH STATUS SNOMED Code(s): 823451561 Status and Disposition: Inpatient. Spoke with nurse on PMRU. Dr. Ba saw patient, is awaiting OT eval and insurance authorization Wednesday
[2017-05-10] MEDS: Rivaroxaban TAB(*) 20 MG TAB PO SCH (21:24)
[2017-05-10] MEDS: Metoprolol Succinate XL TAB* 25 MG PO SCH (21:25)
[2017-05-10] MEDS: Multivitamins/Minerals TAB PO SCH (21:25)
[2017-05-10] MEDS: Losartan TAB* 25 MG PO SCH (21:26)
[2017-05-10] MEDS: Atorvastatin* 20 MG TAB PO SCH (21:26)
[2017-05-10] MEDS: Tamsulosin CAP* 0.4 MG PO SCH (21:27)
[2017-05-10] MEDS: Thiamine TAB* 100 MG TAB PO SCH (21:28)
[2017-05-10] MEDS: Citalopram TAB* 20 MG PO SCH (21:28)
[2017-05-11] MEDS: Diazepam TAB(*) 2 MG PO PRN (00:38)
[2017-05-11] MEDS: CMCS - Melatonin (NF) 3 MG TAB PO PRN (00:38)
--- NOTE | 2017-05-11 01:46 | CONS ---
ADDENDUM/CORRECTION: CONSULTATION REPORT: DATE OF CONSULTATION: 05/03/17 "Please amend the date of consultation to 05/03/17 instead of 05/01/17." [id number]/[facility] #: [id number] JASMEET
[2017-05-11] MEDS: Cefepime 2 GM in Dextrose(*) 2 GM/50 ML BAG IV SCH (05:43)
[2017-05-11 07:02] LABS: EGFR Non-African American 95.8 (>60)
[2017-05-11] MEDS: Insulin LISPRO* 1 UNITS UNIT SUBCUT SCH ×3 (10:12→14:01)
[2017-05-11] MEDS: metroNIDAZOLE TAB* 250 MG PO SCH (10:21)
[2017-05-11] MEDS: Folic Acid TAB* 1 MG PO SCH (10:21)
[2017-05-11] MEDS: Docusate CAP* 100 MG PO SCH (10:22)
[2017-05-11] MEDS: Senna TAB PO SCH (10:22)
--- NOTE | 2017-05-11 11:28 | PN ---
Subjective Date of Service: 05/11/17 Interval History: Patient seen and examined at bedside. Denies fever, chills, shortness of breath , chest discomfort, N/V/D. Pt states that he is feeling well today. Pt states that he is not on home oxygen. Tele: Afib, rate 90-100's Family History: Unchanged from Admission Social History: Unchanged from Admission Past Medical History: Unchanged from Admission Objective Active Medications: Acetaminophen (Tylenol Tab*) 650 mg PO Q4H PRN Reason: FEVER OR PAIN Amlodipine Besylate (Norvasc Tab*) 10 mg PO DAILY [facility] Atorvastatin Calcium (Lipitor*) 20 mg PO BEDTIME [facility] Citalopram Hydrobromide (Celexa Tab*) 20 mg PO 2100 [facility] Collagenase (Santyl 250 Mg/Gm Oint*) 1 applic TOPICAL .SEE INSTRUCTIONS [facility] Dextrose (D50w Syringe 50 Ml*) 12.5 gm IV PUSH .FOR FS < 60 - SS PRN Reason: FS < 60 Diazepam (Valium Tab(*)) 2 mg PO Q8H PRN Reason: anxiety Docusate Sodium (Colace Cap*) 100 mg PO BID [facility] Folic Acid (Folvite Tab*) 1 mg PO DAILY [facility] Hydralazine HCl (Apresoline Iv*) 10 mg IV Q4H PRN Reason: Systolic >170 Insulin Human Lispro (Humalog*) 0 units SUBCUT ACHS [facility] Losartan Potassium (Cozaar Tab*) 100 mg PO 2100 [facility] Melatonin (Melatonin (Nf)) 3 mg PO BEDTIME PRN; Protocol Reason: SLEEP Metoprolol Succinate (Toprol Xl Tab*) 100 mg PO DAILY [facility] Metoprolol Succinate (Toprol Xl Tab*) 25 mg PO BEDTIME [facility] Multivitamins/Minerals (Theragran/Minerals Tab*) 1 tab PO 2100 [facility] Rivaroxaban (Xarelto(*)) 20 mg PO 2100 [facility] Senna (Senokot Tab*) 1 tab PO BID [facility] Simethicone (Mylicon Tab*) 80 mg PO Q6H PRN Reason: INDIGESTION Tamsulosin HCl (Flomax Cap*) 0.4 mg PO 2100 [facility] Thiamine HCl (Vitamin B-1 Tab*) 100 mg PO 2100 [facility] Vital Signs - 8 hr 05/11/17 05/11/17 05/11/17 04:36 08:40 10:22 Temperature 97.6 F 97.8 F Pulse Rate 109 100 Respiratory 18 18 Rate Blood Pressure 111/47 92/72 (mmHg) O2 Sat by Pulse 94 96 97 Oximetry Oxygen Devices in Use Now: Nasal Cannula - 6L Appearance: NAD, laying in bed Ears/Nose/Mouth/Throat: Mucous Membranes Moist Respiratory: Symmetrical Chest Expansion and Respiratory Effort, Clear to Auscultation - , diminished Cardiovascular: NL Sounds; No Murmurs; No JVD, - - Heart rate irregular Abdominal: NL Sounds; No Tenderness; No Distention Extremities: - - Bilateral LE edema Skin: - - Dressing to right heel clean, dry and intact. Dressing to left heel dry and intact with old serous drainage. Wound vac inplace to left 5th toe. Neurological: Alert and Oriented x 3 Lines/Tubes/Other Access: Clean, Dry and Intact Peripheral IV - site benign Nutrition: Taking PO's Result Diagrams: 05/10/17 05:42 05/11/17 06:21 Additional Lab and Data: Laboratory Tests 05/08/17 05/08/17 05/08/17 12:02 16:37 20:14 POC Glucose (mg/dL) 137 H 133 H 138 H 05/09/17 05/09/17 05/09/17 08:22 10:04 11:44 POC Glucose (mg/dL) 133 H 171 H 155 H Microbiology and Other Data: Microbiology 05/03/17 06:06 Blood Venous Aerobic Blood Culture - Final 05/03/17 06:06 Blood Venous Anaerobic Blood Culture - Final No Growth Day 5 No Growth Day 5 05/03/17 06:00 Urine Urine Culture - Final No Growth (<1,000 CFU/mL) 05/03/17 06:00 Blood Venous Aerobic Blood Culture - Final 05/03/17 06:00 Blood Venous Blood MRSA/MSSA (PCR) - Final Staphylococcus Epidermidis Mrsa Negative S.aureus Negative No Growth Day 5 Assess/Plan/Problems-Billing Mr. Luevano is a 67 yo M with PMH significant for h/o afib, suspected MOOKIE, type II DM, HTN, HLD, alcoholism and anxiety/depression who presented to the wound center for routine follow up and was found to have a worsened L heel wound in addition to possible cellulitis about the L 5th toe/ray amputation site. - Patient Problems (1) Acute respiratory failure with hypoxia Code(s): J96.01 - ACUTE RESPIRATORY FAILURE WITH HYPOXIA SNOMED Code(s): 53114329 Comment: - CT on admission showed RUL infiltrate - Continues to have hypoxic respiratory failure, requiring supplemental O2 - Continue flagyl/cefipime, as no clear organism identified - Discontinue ABX (2) Pulmonary edema Code(s): J81.1 - CHRONIC PULMONARY EDEMA SNOMED Code(s): 36182463 Comment: - Received IV lasix 05/07 - Continue to monitor respiratory status (3) Cellulitis of foot without toes, left Code(s): L03.116 - CELLULITIS OF LEFT LOWER LIMB SNOMED Code(s): 035055272 Comment: - Cellulitis resolving - Wound vac placed 05/06/17. Pt to be seen 2x weekly while hospitalized - Discontinue ABX (4) Unstageable pressure ulcer of heel Code(s): L89.600 - PRESSURE ULCER OF UNSPECIFIED HEEL, UNSTAGEABLE SNOMED Code (s): 666151189 Comment: - Continue santly to the wound qod. - Continue pressure relieving measures. (5) Hyponatremia Code(s): E87.1 - HYPO-OSMOLALITY AND HYPONATREMIA SNOMED Code(s): 63994972 Comment: - Resolved (6) Alcoholism Code(s): F10.20 - ALCOHOL DEPENDENCE, UNCOMPLICATED SNOMED Code(s): 6791493 Comment: - The patient's acute alcohol withdrawal has resolved. - He is stable off the [facility] protocol. (7) Atrial fibrillation Code(s): I48.91 - UNSPECIFIED ATRIAL FIBRILLATION SNOMED Code(s): 02381748 Comment: - HR controlled - Continue metoprolol at current dose and xarelto (8) HTN (hypertension) Code(s): I10 - ESSENTIAL (PRIMARY) HYPERTENSION SNOMED Code(s): 47989359 Comment: - BP is under better control, mostly normotensive. - Continue current medication regimen. (9) Type 2 diabetes mellitus Comment: - Glucose 100-130's - Continue Lispro SS (10) BPH (benign prostatic hyperplasia) Code(s): N40.0 - BENIGN PROSTATIC HYPERPLASIA WITHOUT LOWER URINRY TRACT SYMP SNOMED Code(s): 510856702 Comment: - Continue flomax. (11) Depression with anxiety Comment: - Continue citalopram and prn valium (12) HLD (hyperlipidemia) Code(s): E78.5 - HYPERLIPIDEMIA, UNSPECIFIED SNOMED Code(s): 64571960 Comment: - Continue lipitor. (13) DVT prophylaxis Code(s): XNY3455 - SNOMED Code(s): 131897698 Comment: - Tarik (14) Full code status Code(s): Z78.9 - OTHER SPECIFIED HEALTH STATUS SNOMED Code(s): 555749569 Status and Disposition: Inpatient. Stable for discharge to [facility] today.
[2017-05-11 12:07] VITALS: BP 118/61
[2017-05-11] MEDS: amLODIPine TAB* 5 MG PO SCH (12:09)
[2017-05-11] MEDS: Metoprolol Succinate XL TAB* 100 MG PO SCH (12:09)
--- NOTE | 2017-05-12 05:03 | DS ---
CC: Dr. Ramez Akins * DISCHARGE SUMMARY: DATE OF ADMISSION: 04/30/17 DATE OF DISCHARGE: 05/11/17 ATTENDING PHYSICIAN: Sonali Nickerson DO * (dictated by Regino Valle NP). PRIMARY CARE PROVIDER: Dr. Ramez Akins. PRIMARY DIAGNOSES: 1. Acute respiratory failure with hypoxia secondary to pneumonia. 2. Pulmonary edema. 3. Left foot cellulitis. 4. Unstageable pressure ulcer to bilateral heels. 5. Hyponatremia, resolved. 6. Alcoholism, status post acute alcohol withdrawal. 7. Deconditioning. SECONDARY DIAGNOSES: 1. Atrial fibrillation. 2. Hypertension. 3. Diabetes mellitus type 2. 4. Benign prostatic hypertrophy. 5. Depression and anxiety. 6. Hyperlipidemia. CONSULTATIONS WHILE IN THE HOSPITAL: 1. Dr. Bryn Barnhart with Infectious Disease. 2. Dr. Steffen Rojas with General Surgery. STUDIES WHILE IN THE HOSPITAL: 1. Chest x-ray on 05/02/17. Radiologist impression: Pulmonary interstitial edema. There is more focal consolidation of the right mid lung field. Recommend followup until resolution to exclude underlying pulmonary parenchymal pathology. 2. Transthoracic echocardiogram on 05/02/17. Masonry Teacher conclusion: The left ventricular chamber size is normal. [id number] concentric left ventricular hypertrophy is observed. The estimated ejection fraction is 55% to 60%. There is septal flattening of the intraventricular septum consistent with right ventricular volume and pressure overload. The assessment of diastolic function is nondiagnostic. The left atrium is severely dilated. The right ventricle is mildly to moderate dilated. There is a trace of mitral regurgitation. There is trace tricuspid regurgitation. 3. Chest x-ray on 05/03/17. Radiologist impression: Again, noted is pulmonary interstitial edema with more focal consolidation of the right mid lung. Recommend followup until resolution. 4. Chest thoracic CTA on 05/03/17. Radiologist impression: Right upper lobe pneumonia. Cardiomegaly with mild interstitial pulmonary edema with associated small dependent pleural effusions. Moderately limited CT pulmonary angiogram due to motion artifact without compelling evidence for pulmonary embolus. Mildly enlarged right paratracheal and precarinal mediastinal lymph node. 5. Left lower extremity CT scan on 05/03/17. Radiologist impression: The consolidation of findings is consistent with diffuse cellulitis without evidence for loculated abscess collection. No compelling CT stigmata of osteomyelitis. If there is persistent clinical concern, consider MRI or in the setting of contraindication to MRI, 3-phase bone scan for further assessment. 6. Testicular ultrasound on 05/03/17. Radiologist impression: Ectasia of the testes bilateral. No testicular parenchymal mass. No sonographic features of torsion. Please note that partial or intermittent torsion may be sonographically normal. CURRENT HOSPITAL MEDICATIONS: 1. Acetaminophen 650 mg oral every 4 hours as needed for fever or pain. 2. Amlodipine 10 mg oral daily. 3. Atorvastatin 20 mg oral daily at bedtime. 4. Cefepime 2 g IV q.12 hours. 5. Celexa 20 mg oral every evening. 6. Santyl apply topical to left heel every other day. 7. Dextrose 12.5 g IV push for glucose less than 60 as needed. 8. Valium 2 mg oral as needed for anxiety. 9. Colace 100 mg oral twice daily. 10. Folic acid 1 mg oral daily. 11. Hydralazine 10 mg IV every 4 hours as needed for systolic blood pressure greater than 170. 12. Lispro insulin sliding scale a.c. and h.s. 13. Losartan 100 mg oral daily. 14. Melatonin 3 mg oral daily at bedtime as needed for sleep. 15. Metoprolol succinate 100 mg oral daily. 16. Metoprolol succinate 25 mg oral daily at bedtime. 17. Flagyl 500 mg oral twice daily. 18. Multivitamin 1 tablet oral daily. 19. Xarelto 20 mg oral daily. 20. Senna 1 tablet oral twice daily. 21. Simethicone 80 mg oral every 6 hours as needed for gas discomfort. 22. Flomax 0.4 mg oral daily. 23. Thiamine 100 mg oral daily. HOME MEDICATIONS: Include: 1. Multivitamin 1 tablet oral daily. 2. Metoprolol succinate 100 mg oral daily. 3. Losartan/hydrochlorothiazide 100/25 mg 1 tablet oral daily. 4. Valium 5 mg oral 3 times daily as needed for anxiety. 5. Doxycycline 100 mg oral 3 times daily. 6. Celexa 20 mg oral daily. 7. Atorvastatin 20 mg oral daily at bedtime. 8. Amlodipine 5 mg oral daily. 9. Tamsulosin 0.4 mg oral daily. 10. Xarelto 20 mg oral daily. HISTORY OF PRESENT ILLNESS/HOSPITAL COURSE: Mr. Luevano is a 67-year-old male with past medical history significant for current alcohol abuse, recent hospitalization from 04/11/17 to 04/14/17 with osteomyelitis, status post a left fifth toe ray amputation by Dr. Rojas on 04/13/17 without complications, diabetes mellitus, hypertension, hyperlipidemia, BPH, suspected sleep apnea, morbid obesity, and atrial fibrillation, on Xarelto, who had returned home and continued to drink approximately 2 bottles of wine daily. The patient is limited in his self care secondary to his morbid obesity and continued alcoholism with limited mobility. He returned to the emergency room on after developing a blister on his left heel. He was discharged and continued on doxycycline and followed up with Dr. Rojas for wound care. He was seen in the wound clinic on 04/30/[address] Rojas and was found to have worsening partial thickness wound involving the majority of his left heel, potentially developing cellulitis at the left fifth toe amputation site. The patient's indicated he was having difficulty taking care of himself at home and that she was assisting with wound care to the best of her abilities. Due to the wound continuing to deteriorate initial period of time since the patient had previously been seen at the wound clinic, it was felt that the patient should be admitted to the hospital. While in the hospital, the patient withdrew from alcohol. He was eventually taken off the [facility] protocol. He was seen in consultation by Dr. Barnhart with Infectious Disease, who recommended to continue broad-spectrum antibiotics and to obtain a CT of the foot. He also underwent ultrasound of his left testicle due to left testicular pain. During the patient's stay, he was treated on cefepime IV, he received his last dose today on 05/11/17 receiving 8 days of cefepime. In addition, he had been on Flagyl. He received 10-day course of Flagyl. During his stay, he was also found to have pulmonary edema. He received IV Lasix on 05/07/17 and his respiratory status improved. He was found to have acute hypoxic respiratory failure during his stay, which was suspected to be secondary to right upper lobe pneumonia. The patient's left foot cellulitis resolved. He had wound VAC in place that was being changed twice weekly. He had unstageable pressure ulcer to bilateral heels with the left greater than the right. He is hyponatremic, this resolved. The patient was found to be deconditioned and in need of rehabilitation services. He received a bed offer for [facility]. Mr. Luevano is stable for discharge to [facility] today. Vital signs are as follows. Temperature is 97.8, heart rate 100, respiratory rate 18, O2 96% on 5 L via nasal cannula, blood pressure 92/72. DISCHARGE PLAN: Mr. Luevano will be discharged to [facility] with activity as tolerated. He should continue with OT and PT. He should be on a consistent carbohydrate diet. As far as the patient's cellulitis and right upper lobe pneumonia, he has completed a course of Flagyl and cefepime. The patient should follow up with his primary care provider after discharge from [facility]. He should also continue to follow up with Dr. Rojas for wound care to both his heels and left fifth toe amputation site. The patient should return to the emergency room for any chest pain, shortness of breath. This is a summarized report of a complex medical history and hospital stay. For further details, please see the entire medical record. TIME SPENT: Time for this discharge was approximately 50 minutes, greater than half of that was spent with the patient discussing discharge plans and instructions. CONDITION ON DISCHARGE: Stable. REGINO MOHAN NP [id number]/VINOD #: [id number] MTDD
== END 2017-05-11 13:35 | DRG 592 ==
LOC: MED 13:30 → ICU 05-02 07:28 → MED 05-07 13:30
PROVIDERS: ADMIT Internal Medicine; ATTEND Internal Medicine
DX: L89.620 Pressure ulcer of left heel, unstageable (principal); J96.01 Acute respiratory failure with hypoxia; J81.1 Chronic pulmonary edema; J18.9 Pneumonia, unspecified organism; I48.0 Paroxysmal atrial fibrillation; I08.1 Rheumatic disorders of both mitral and tricuspid valves; L89.610 Pressure ulcer of right heel, unstageable; L03.116 Cellulitis of left lower limb; E87.1 Hypo-osmolality and hyponatremia; Z68.43 Body mass index [BMI] 50.0-59.9, adult; F10.239 Alcohol dependence with withdrawal, unspecified; E66.01 Morbid (severe) obesity due to excess calories; I10 Essential (primary) hypertension; E78.5 Hyperlipidemia, unspecified; N40.0 Benign prostatic hyperplasia without lower urinary tract symptoms; F32.9 Major depressive disorder, single episode, unspecified; F41.9 Anxiety disorder, unspecified; Z89.422 Acquired absence of other left toe(s); Z82.49 Family history of ischemic heart disease and other diseases of the circulatory system; Z87.891 Personal history of nicotine dependence; F41.8 Other specified anxiety disorders; T87.81 Dehiscence of amputation stump; N50.812 Left testicular pain; N50.89 Other specified disorders of the male genital organs; G47.33 Obstructive sleep apnea (adult) (pediatric); Z88.0 Allergy status to penicillin; Z79.4 Long term (current) use of insulin; Z79.01 Long term (current) use of anticoagulants
CPT/HCPCS: 36415; 36600; 71045; 71275; 76870; 80048; 80076; 80202; 81003; 81015; 82803; 83605; 83880; 84145; 85025; 85027; 85610; 86140; 87040; 87077; 87086; 87150; 87205; 87641; 93306; 94660; 94760; A9270-GY; J0360; J0692; J1940; J2060; J3370; J3490

== ENCOUNTER 2017-05-11 11:04 | Inpatient (IN) | payer MEDICARE, OTHER ==
--- NOTE | 2017-05-11 15:13 | PN ---
Progress Note - Progress Note Date of Service: 05/11/17 SOAP: Subjective: Pt seen and examined in PMRU. NPWT removed earlier today Objective: afebrile L foot: surgical site intact without tunneling. heel ulcer unstageable, no fluctuence metatarsel pressure ulcer healed Assessment: wound dehiscence at 5th toe ray amp improving. heel ulcer unstageable Plan: santyl to heel ulcer; will need debridement no wound care needed at distal foot ulcer continue NPWT at 125mmHg to surgical site
[2017-05-11] MEDS ORDERED: Bisacodyl SUPP* 10 MG SUPP PR PRN (16:26)
[2017-05-11] MEDS ORDERED: Senna TAB PO PRN (16:26)
[2017-05-11] MEDS ORDERED: Dextrose 50% Syringe 50 ML* 25 GM/50 ML SYRINGE IV PUSH PRN (16:41)
[2017-05-11] MEDS: Atorvastatin* 20 MG TAB PO SCH (17:26)
--- NOTE | 2017-05-11 20:55 | HP ---
HISTORY AND PHYSICAL: DATE OF ADMISSION: 05/11/17 REASON FOR ADMISSION: Partial amputation left foot, followed by respiratory failure and pneumonia. HISTORY OF PRESENT ILLNESS: Albin Luevano is a 67-year-old diabetic white male. He presented to the emergency room on 04/11/17. He had an ongoing pinky toe injury on his left foot, which started 03/08/17. He had struck the foot on a sharp object and lacerated it. The patient came in because he was concerned about the appearance of the foot. He was admitted to the hospital. He was taken to the operating room on 04/13/[address] Rojas and underwent a left fifth ray amputation. He was discharged home from the hospital on 04/14/17. The patient returned to the hospital on 04/30/17. He had been previously in the ER on 04/25/17 after he developed a blister on his left heel. He was put on doxycycline and told to follow up in the [facility]. He was seen in the [facility] on 04/30/17 and was found to have worsening partial thickness wound involving the majority of his left heel and Dr. Rojas felt he had cellulitis and sent him to the hospital for IV antibiotics. The patient was admitted to the hospital and put on IV cefepime as well as oral Flagyl. He unfortunately decompensated and developed hypoxia. He had a chest x-ray showing possible infiltrate or possible pulmonary edema. He continued on IV antibiotics. He had a CT angiogram of his chest that did not show a pulmonary embolus but did show a right-sided infiltrate. As mentioned, he continued on IV antibiotics as well as Flagyl. The patient had a wound VAC placed on his left foot. He was felt to be stabilizing. His IV antibiotics was stopped today. Unfortunately, the patient has a lot of difficulty mobilizing as he is a large man and has difficulty walking on his left foot. He is felt to have physical therapy and occupational therapy needs. He is now being admitted for inpatient rehab so that he might return to independent living. PAST MEDICAL HISTORY: Significant for the aforementioned diabetes. He does not take any medications at home. He has a history of hypertension, hyperlipidemia, morbid obesity, atrial fibrillation and is on Xarelto. He does drink 6 to 8 glasses of wine a day. CURRENT MEDICATIONS: Include; 1. Norvasc. 2. Lipitor. 3. Celexa. 4. He is on sliding scale insulin. 5. Cozaar. 6. Toprol XL. 7. Xarelto. 8. Flagyl. 9. Flomax. ALLERGIES: PENICILLIN. SOCIAL HISTORY: He is a nonsmoker. He drinks 6 to 8 glasses of wine a day. Lives with his in a 2-mario house, although he sleeps on the first floor. REVIEW OF SYSTEMS: The patient reports no current shortness of breath or chest pain. PHYSICAL EXAMINATION VITAL SIGNS: Temperature is 98.3, blood pressure is 115/63, pulse is 94, respirations 24. HEENT: His extraocular movements are intact. Tongue is midline. LUNGS: He has scattered rales throughout. HEART: His heart sounds are regular. S1, S2 audible. ABDOMEN: Soft and nontender. EXTREMITIES: His left foot was examined. The fifth ray amputation site looks clean. Peripheral pulses are palpable in dorsalis pedis. His sensation appears to be slightly diminished in his foot on both sides. He has a large pressure ulcer over his left heel that is un-stageable. NEUROLOGIC: He is awake, alert, oriented. Decreased sensation in his feet. Muscle strength looks to be closer to 5/5. FUNCTIONAL EXAM: He transfers with moderate amount of assistance. ASSESSMENT: 1. Partial foot amputation, left foot. 2. Pressure ulcer, left foot. 3. Respiratory failure. PLAN: Integrate him into comprehensive and therapeutic rehab program with following goals: 1. Physical Therapy will work with the patient. They are going to work on functional transfer training, ambulation training with a walker. 2. Occupational Therapy will see the patient, work on his activities of daily living including toileting and toilet transfers. 3. Xarelto for his atrial fibrillation as well as for DVT prophylaxis. 4. For his diabetes, we will do fingersticks with sliding scale insulin coverage. 5. Santyl to his left heel ulcer. Surgical followup is needed. 6. We will continue supplemental oxygen for his respiratory failure. 7. For atrial fibrillation, we are going to continue his beta jaclyn as well as his Xarelto. 8. Continue his blood pressure medications for his high blood pressure. 9. Counseling is needed for heavy alcohol use. 10. Family training as appropriate. 11. Home with appropriate services. ESTIMATED LENGTH OF STAY: Ten to twelve days. [id number]/[facility] #: [id number] [facility]
[2017-05-11] MEDS: Losartan TAB* 25 MG PO SCH (21:36)
[2017-05-11] MEDS: Rivaroxaban TAB(*) 10 MG PO SCH (21:37)
[2017-05-11] MEDS: Tamsulosin CAP* 0.4 MG PO SCH (21:37)
[2017-05-11] MEDS: Citalopram TAB* 20 MG PO SCH (21:38)
[2017-05-11] MEDS: Metoprolol Succinate XL TAB* 25 MG PO SCH (21:38)
[2017-05-11] MEDS: metroNIDAZOLE TAB* 250 MG PO SCH (21:39)
[2017-05-11] MEDS: Insulin LISPRO* 1 UNITS UNIT SUBCUT SCH (21:40)
[2017-05-11] MEDS: Docusate CAP* 100 MG PO SCH (21:41)
[2017-05-12 07:34] LABS: ABS Basophils 0.1 10^3/ul (0-0.2); ABS Eosinophils 0.6 10^3/ul (0-0.6); ABS Monocytes 1.2 10^3/ul (0-0.8); ABS Neutrophils 7.9 10^3/ul (1.5-7.7); ABS Nucleated RBC 0 10^3/ul; Eosinophil % 5.5 % (0-6); Hematocrit 35 % (42-52); Hemoglobin 11.9 g/dl (14.0-18.0); Lymphocyte % 9.6 % (25-47); Mean Corpuscular HGB Conc 34 g/dl (31-36); Mean Corpuscular Hemoglobin 34 pg (27-31); Mean Corpuscular Volume 99 fL (80-94); Mean Platelet Volume 10 um3 (7.4-10.4); Nucleated Red Blood Cells % 0.1; Platelet Count 301 10^3/ul (150-450); Red Blood Count 3.52 10^6/ul (4.0-5.4); Red Cell Distribution Width 15 % (10.5-15); White Blood Count 10.9 10^3/ul (3.5-10.8)
[2017-05-12 07:49] LABS: EGFR Non-African American 101.7 (>60)
[2017-05-12] MEDS: Insulin LISPRO* 1 UNITS UNIT SUBCUT SCH ×4 (07:51→21:30)
[2017-05-12] MEDS: Docusate CAP* 100 MG PO SCH ×2 (08:06→19:42)
[2017-05-12] MEDS: metroNIDAZOLE TAB* 250 MG PO SCH (08:38)
[2017-05-12] MEDS: Metoprolol Succinate XL TAB* 100 MG PO SCH (08:38)
[2017-05-12] MEDS: amLODIPine TAB* 5 MG PO SCH (08:38)
[2017-05-12] MEDS: Folic Acid TAB* 1 MG PO SCH (08:38)
[2017-05-12] MEDS: Collagenase 250 MG/GM OINT* 30 GM TOPICAL SCH (09:15)
[2017-05-12] MEDS: Atorvastatin* 20 MG TAB PO SCH (17:12)
--- NOTE | 2017-05-12 18:12 | PN ---
Progress Note Date of Service: 05/12/17 Note: JARETT COOPER was visited. Therapy notes read and reviewed. He feels tired after his first day of therapy. He did not sleep well last night. Will order Benadryl. Elevated transaminases may be due to cephalosporins or Flagyl. Current Medications: Active Medications Generic Name Dose Route Start Last Admin Trade Name Freq PRN Reason Stop Dose Admin Acetaminophen 650 mg 05/11/17 16:26 Tylenol Tab* PO Q6H PRN FEVER/PAIN Amlodipine Besylate 10 mg 05/12/17 09:00 05/12/17 08:38 Norvasc Tab* PO 10 mg DAILY HODAN Administration Atorvastatin Calcium 20 mg 05/11/17 17:00 05/12/17 17:12 Lipitor* PO 20 mg 1700 HODAN Administration Bisacodyl 10 mg 05/11/17 16:26 Dulcolax Supp* IN DAILY PRN CONSTIPATION Citalopram Hydrobromide 20 mg 05/11/17 21:00 05/11/17 21:38 Celexa Tab* PO 20 mg BEDTIME HODAN Administration Collagenase 1 applic 05/11/17 17:00 05/12/17 09:15 Santyl 250 Mg/Gm Oint* TOPICAL 1 applic .SEE INSTRUCTIONS HODAN Administration Dextrose 12.5 gm 05/11/17 16:41 D50w Syringe 50 Ml* IV PUSH .FOR FS < 60 - SS PRN FS < 60 Diphenhydramine HCl 25 mg 05/12/17 18:07 Benadryl Po* PO BEDTIME PRN INSOMNIA Docusate Sodium 100 mg 05/11/17 21:00 05/12/17 08:06 Colace Cap* PO Not Given BID HODAN Folic Acid 1 mg 05/12/17 09:00 05/12/17 08:38 Folvite Tab* PO 1 mg DAILY HODAN Administration Insulin Human Lispro 0 - 15 units 05/11/17 21:00 05/12/17 17:12 Humalog* SUBCUT Not Given ACHS [facility] Protocol Losartan Potassium 100 mg 05/11/17 21:00 05/11/17 21:36 Cozaar Tab* PO 100 mg 2100 HODAN Administration Metoprolol Succinate 100 mg 05/12/17 09:00 05/12/17 08:38 Toprol Xl Tab* PO 100 mg DAILY HODAN Administration Metoprolol Succinate 25 mg 05/11/17 21:00 05/11/17 21:38 Toprol Xl Tab* PO 25 mg 2100 HODAN Administration Metronidazole 500 mg 05/11/17 21:00 05/12/17 08:38 Flagyl Tab* PO 500 mg BID HODAN Administration Rivaroxaban 20 mg 05/11/17 21:00 05/11/17 21:37 Xarelto(*) PO 20 mg 2100 HODAN Administration Senna 2 tab 05/11/17 16:26 Senokot Tab* PO BEDTIME PRN CONSTIPATION Tamsulosin HCl 0.4 mg 05/11/17 21:00 05/11/17 21:37 Flomax Cap* PO 0.4 mg BEDTIME HODAN Administration Vital Signs: Vital Signs Temp Pulse Resp BP Pulse Ox 97.4 F 91 18 110/63 96 05/12/17 16:04 05/12/17 16:04 05/12/17 16:04 05/12/17 16:04 05/12/17 16:04 Lab Results: Laboratory Results - last 24 hr 05/11/17 05/12/17 05/12/17 20:52 06:48 06:48 WBC 10.9 H RBC 3.52 L Hgb 11.9 L Hct 35 L MCV 99 H MCH 34 H MCHC 34 RDW 15 Plt Count 301 MPV 10 Neut % (Auto) 72.6 Lymph % (Auto) 9.6 L Burt % (Auto) 11.0 H Eos % (Auto) 5.5 Baso % (Auto) 1.3 Absolute Neuts (auto) 7.9 H Absolute Lymphs (auto) 1.0 Absolute Monos (auto) 1.2 H Absolute Eos (auto) 0.6 Absolute Basos (auto) 0.1 Absolute Nucleated RBC 0 Nucleated RBC % 0.1 Sodium 136 Potassium 4.1 Chloride 102 Carbon Dioxide 30 Anion Gap 4 BUN 12 Creatinine 0.76 Est GFR ( Amer) 130.8 Est GFR (Non-Af Amer) 101.7 BUN/Creatinine Ratio 15.8 Glucose 97 POC Glucose (mg/dL) 160 H Calcium 9.0 Total Bilirubin 0.70 AST 133 H ALT 84 H Alkaline Phosphatase 211 H Total Protein 6.5 Albumin 2.9 L Globulin 3.6 Albumin/Globulin Ratio 0.8 L 05/12/17 05/12/17 05/12/17 07:34 11:57 16:49 WBC RBC Hgb Hct MCV MCH MCHC RDW Plt Count MPV Neut % (Auto) Lymph % (Auto) Burt % (Auto) Eos % (Auto) Baso % (Auto) Absolute Neuts (auto) Absolute Lymphs (auto) Absolute Monos (auto) Absolute Eos (auto) Absolute Basos (auto) Absolute Nucleated RBC Nucleated RBC % Sodium Potassium Chloride Carbon Dioxide Anion Gap BUN Creatinine Est GFR ( Amer) Est GFR (Non-Af Amer) BUN/Creatinine Ratio Glucose POC Glucose (mg/dL) 121 H 149 H 125 H Calcium Total Bilirubin AST ALT Alkaline Phosphatase Total Protein Albumin Globulin Albumin/Globulin Ratio Exam: LUNGS: Clear HEART: Reg rhythm ABDOMEN: Soft, +BS EXTREMITIES: Left foot has VAC. Dry scaly skin on feet Assessment/Plan: 05/12/17 18:11 1. Respiratory Failure: Finished course of antibiotics. On O2 via [place]. PT/OT 2. Left foot wound/heel ulcer: Continue VAC. Santyl. Surgery Follow up. PT/OT 3. Atrial fibrillation: Toprol/Xarelto 4. Elevated transaminases: Recheck Fri off abx 5. DM: SSI 6. HTN: Norvasc/Toprol/Cozaar 7. BPH: Flomax 05/12/17 18:13
[2017-05-12] MEDS: Metoprolol Succinate XL TAB* 25 MG PO SCH (21:30)
[2017-05-12] MEDS: Rivaroxaban TAB(*) 10 MG PO SCH (21:30)
[2017-05-12] MEDS: Tamsulosin CAP* 0.4 MG PO SCH (21:30)
[2017-05-12] MEDS: Citalopram TAB* 20 MG PO SCH (21:30)
[2017-05-12] MEDS: Losartan TAB* 25 MG PO SCH (21:30)
[2017-05-12] MEDS: Acetaminophen TAB* 325 MG PO PRN (23:40)
[2017-05-13] MEDS: diPHENhydraMINE PO* 25 MG PO PRN ×3 (01:11→22:24)
[2017-05-13] MEDS: Insulin LISPRO* 1 UNITS UNIT SUBCUT SCH ×4 (07:40→21:06)
[2017-05-13] MEDS: Docusate CAP* 100 MG PO SCH ×2 (08:25→19:54)
[2017-05-13] MEDS: Folic Acid TAB* 1 MG PO SCH (08:25)
[2017-05-13] MEDS: Metoprolol Succinate XL TAB* 100 MG PO SCH (08:25)
[2017-05-13] MEDS: amLODIPine TAB* 5 MG PO SCH (08:25)
[2017-05-13] MEDS: Atorvastatin* 20 MG TAB PO SCH (17:18)
--- NOTE | 2017-05-13 18:30 | PN ---
Progress Note Date of Service: 05/13/17 Note: JARETT COOPER was visited. Therapy notes read and reviewed. He is still requiring a bit of assistance but seems slightly more mobile. Weaning off oxygen. Blood sugars ok. Benadryl effective for insomnia Current Medications: Active Medications Generic Name Dose Route Start Last Admin Trade Name Freq PRN Reason Stop Dose Admin Acetaminophen 650 mg 05/11/17 16:26 05/12/17 23:40 Tylenol Tab* PO 650 mg Q6H PRN Administration FEVER/PAIN Amlodipine Besylate 10 mg 05/12/17 09:00 05/13/17 08:25 Norvasc Tab* PO 10 mg DAILY HODAN Administration Atorvastatin Calcium 20 mg 05/11/17 17:00 05/13/17 17:18 Lipitor* PO 20 mg 1700 HODAN Administration Bisacodyl 10 mg 05/11/17 16:26 Dulcolax Supp* MO DAILY PRN CONSTIPATION Citalopram Hydrobromide 20 mg 05/11/17 21:00 05/12/17 21:30 Celexa Tab* PO 20 mg BEDTIME HODAN Administration Collagenase 1 applic 05/11/17 17:00 05/12/17 09:15 Santyl 250 Mg/Gm Oint* TOPICAL 1 applic .SEE INSTRUCTIONS HODAN Administration Dextrose 12.5 gm 05/11/17 16:41 D50w Syringe 50 Ml* IV PUSH .FOR FS < 60 - SS PRN FS < 60 Diphenhydramine HCl 25 mg 05/12/17 18:07 05/13/17 01:11 Benadryl Po* PO 25 mg BEDTIME PRN Administration INSOMNIA Docusate Sodium 100 mg 05/11/17 21:00 05/13/17 08:25 Colace Cap* PO 100 mg BID HODAN Administration Folic Acid 1 mg 05/12/17 09:00 05/13/17 08:25 Folvite Tab* PO 1 mg DAILY HODAN Administration Insulin Human Lispro 0 - 15 units 05/11/17 21:00 05/13/17 17:10 Humalog* SUBCUT Not Given ACHS [facility] Protocol Losartan Potassium 100 mg 05/11/17 21:00 05/12/17 21:30 Cozaar Tab* PO 100 mg 2100 HODAN Administration Metoprolol Succinate 100 mg 05/12/17 09:00 05/13/17 08:25 Toprol Xl Tab* PO 100 mg DAILY HODAN Administration Metoprolol Succinate 25 mg 05/11/17 21:00 05/12/17 21:30 Toprol Xl Tab* PO 25 mg 2100 HODAN Administration Rivaroxaban 20 mg 05/11/17 21:00 05/12/17 21:30 Xarelto(*) PO 20 mg 2100 HODAN Administration Senna 2 tab 05/11/17 16:26 Senokot Tab* PO BEDTIME PRN CONSTIPATION Tamsulosin HCl 0.4 mg 05/11/17 21:00 05/12/17 21:30 Flomax Cap* PO 0.4 mg BEDTIME HODAN Administration Vital Signs: Vital Signs Temp Pulse Resp BP Pulse Ox 98.3 F 80 18 106/66 95 05/13/17 16:00 05/13/17 16:00 05/13/17 18:17 05/13/17 16:00 05/13/17 18:17 Lab Results: Laboratory Results - last 24 hr 05/12/17 05/13/17 05/13/17 21:02 07:19 12:01 POC Glucose (mg/dL) 141 H 120 H 138 H 05/13/17 16:20 POC Glucose (mg/dL) 109 H Exam: LUNGS: Clear HEART: Reg rhythm ABDOMEN: Soft, +BS EXTREMITIES: Left foot has VAC. Dry scaly skin on feet Assessment/Plan: 05/13/17 18:31 1. Respiratory Failure: Finished course of antibiotics. On O2 via [place]. PT/OT 2. Left foot wound/heel ulcer: Continue VAC. Santyl. Surgery Follow up. PT/OT 3. Atrial fibrillation: Toprol/Xarelto 4. Elevated transaminases: Recheck Wed off abx 5. DM: SSI 6. HTN: Norvasc/Toprol/Cozaar 7. BPH: Flomax 8. DVT prophylaxis: On Xarelto 9. Advanced directives: Full code
[2017-05-13] MEDS: Tamsulosin CAP* 0.4 MG PO SCH (21:05)
[2017-05-13] MEDS: Rivaroxaban TAB(*) 10 MG PO SCH (21:05)
[2017-05-13] MEDS: Citalopram TAB* 20 MG PO SCH (21:05)
[2017-05-13] MEDS: Metoprolol Succinate XL TAB* 25 MG PO SCH (21:06)
[2017-05-13] MEDS: Losartan TAB* 25 MG PO SCH (21:06)
[2017-05-14] MEDS: Insulin LISPRO* 1 UNITS UNIT SUBCUT SCH ×4 (07:21→20:56)
[2017-05-14] MEDS: Folic Acid TAB* 1 MG PO SCH (08:24)
[2017-05-14] MEDS: amLODIPine TAB* 5 MG PO SCH (08:24)
[2017-05-14] MEDS: Metoprolol Succinate XL TAB* 100 MG PO SCH (08:24)
[2017-05-14] MEDS: Docusate CAP* 100 MG PO SCH ×2 (08:24→20:45)
--- NOTE | 2017-05-14 12:37 | PMRUTEAM ---
PMRU: Goals Current Status: Nursing: Current Status Skin Deviations [Right Wound Buttocks] Skin Deviations [Left Foot] Wound Skin Deviations [Right Lower Abrasion Posterior Leg] Skin Deviations [Right Heel] Pressure Ulcer Skin Deviations [Left Heel] Pressure Ulcer Skin Deviation Description [ Mepilex in place Right Buttocks] Skin Deviation Description [ drsg in place. Wound vac in place Left Foot] Skin Deviation Description [ abrasion Right Lower Posterior Leg] Skin Deviation Description [ reddened/purplish Right Heel] Skin Deviation Description [ reddened/purplish Left Heel] Drain Type [Left Foot] Wound Vac Wound Stage [Right Buttocks] I Wound Stage [Right Heel] II Wound Stage [Left Heel] Unstageable Physical Therapy: Current Status Bed Mobility Assistance Supervision Transfer Moblility Assistance Total Assist,2 or More Person Assist Transfer/Bed Mobility Lauryn Lift Recommended Devices Ambulation Assistance Independent Ambulation Assistive Devices Rolling Walker Stairs Assistance Independent Stairs Recommended Devices Two Rails Number of Stairs Flight Wheelchair Distance (ft) 50 Occupational Therapy: Current Status Upper Body Dressing Supervision Lower Body Dressing Total Assist Bathing Mod Assist,2 Person Assist Toileting Total Assist,2 Person Assist Eating Independent Rec Therapy: Current Status Summary of Assessment and Pt. was open to conversation. Pt.'s was in Clinical Impression the room and added in comments occassionally. Pt. states he enjoys his life and was able to identify with hobbies. Pt. was open to continued leisure visits. Treatment Goals Pt. will engage in leisure activities while on the unit. Treatment Plan Provide RT services and encourage involvement. Social Work: Current Status Discharge Plan return home with home care svs and family support Potential for Family Training pt's is involved and supportive Anticipated Discharge Home Destination Discharge With home care svs and family support Goals: Physical Therapy: Initial Goals Bed Mobility Assistance Independent Transfer Mobility Assistance Independent Transfer/Bed Mobility Rolling Walker Recommended Devices Ambulation Independent Ambulation Recommended Devices Rolling Walker Ambulation Distance 150 Wheelchair Propulsion Ability Independent Wheelchair Distance (ft) 150 Stairs Assistance Independent Stair Recommended Devices Two Rails Number of Stairs 12 Occupational Therapy: Initial Goals Goals to be Completed in (Days 4 weeks ) Upper Body Bathing Routine Independent Lower Body Bathing Routine Modified Independent with Upper Body Dressing Routine Independent Lower Body Dressing Routine Modified Independent with Toilet Hygeine and Clothing Modified Independent with Management Routine Toilet Transfer Routine Modified Independent with Tub Transfer Routine Modified Independent with Functional Transfers for ADL Modified Independent with Grooming Routine Independent Feeding Routine Independent Social Work: Goals Discharge Plan return home with home care svs and family support Potential for Family Training pt's is involved and supportive Anticipated Discharge Home Destination Discharge With home care svs and family support Care Plan: Care Plan ADL's - Improve/Maintain Start: 05/11/17 22:48 Freq: DAILY Status: Active Target: Protocol: Activity Type Activity Date Activity User E-Sign Co-Sign Detail Recorded Client Recorded Date Recorded By Document 05/14/17 11:57 [id number] 05/14/17 11:57 [id number] 05/14/17 11:57 PMRU Outcome: ADL's/ADL Transfers Orders/Interventions Occupational Therapy Evaluation & Treatment Communication Tool in Patient Room Device Yes Patient to receive OT 5x/wk for 60-120 Therex min/day Self Care Management Group Therapy UE/LE ADL's with Assist Yes: Chava ADL Transfers with Assist Yes: Chava Toileting: Transfers,Clothing Management Yes: Chava ,Hygeine w/Assist Progression Toward Outcome/Goals Progressing Outcome/Goals Met Pt participated well in ADL treatment session, increased independence with bathing seated on EOB as well as completion of supine to/from sit without physical assistance during ADL routine. Cardiovascular- Improve/Maintain Start: 05/11/17 22:48 Freq: DAILY Status: Active Target: Protocol: Activity Type Activity Date Activity User E-Sign Co-Sign Detail Recorded Client Recorded Date Recorded By Document 05/14/17 08:00 [id number] 05/14/17 12:15 [id number] 05/14/17 08:00 PMRU Outcome: Cardiovascular Vital Signs q Shift for 48hrs Then BID Yes Daily Weight Ordered No Current Cardiovascular Outcome/Goal Maintain/ Achieve Baseline HR, BP , Perfusion Maintain/ Achieve Hemodynamic Stability Free of Abnormal Cardiac Symptoms Progression Toward Outcome/Goal Progressing Outcome/Goals Met Comment HX of AFIB DVT Prophylaxis- Improve/Maintain Start: 05/11/17 22:48 Freq: DAILY Status: Active Target: Protocol: Activity Type Activity Date Activity User E-Sign Co-Sign Detail Recorded Client Recorded Date Recorded By Document 05/14/17 08:00 [id number] 05/14/17 12:15 [id number] 05/14/17 08:00 PMRU Outcome: DVT Prophylaxis Outcome/Goals Remains Free of DVT TEDS Stockings on Every AM, Off at HS Progression Toward Outcome/Goals Progressing Discharge Planning - Improve/Maintain Start: 05/11/17 22:48 Freq: DAILY Status: Active Target: Protocol: Activity Type Activity Date Activity User E-Sign Co-Sign Detail Recorded Client Recorded Date Recorded By Document 05/13/17 01:00 [id number] 05/13/17 01:02 [id number] 05/13/17 01:00 PMRU Outcome: Discharge Planning Identify Patient Needs yes Update Patient Family No Outcome/Goals Demonstrates Understanding of Discharge Plan Progression Toward Outcome/Goals Progressing Metabolic Status- Improve/Maintain Start: 05/11/17 22:48 Freq: DAILY Status: Active Target: Protocol: Activity Type Activity Date Activity User E-Sign Co-Sign Detail Recorded Client Recorded Date Recorded By Document 05/14/17 08:00 [id number] 05/14/17 12:15 [id number] 05/14/17 08:00 PMRU Outcome: Metabolic Status Have Fingersticks Been Ordered Yes Fingerstick Order Frequency AC & HS Outcome/Goals Maintain/ Improve Metabolic Status Demonstrate Knowledge of Prevention/ Treatment of Metabolic Imbalances Progression Toward Outcome/Goals Progressing Mobility- Improve/Maintain Start: 05/11/17 22:48 Freq: DAILY Status: Active Target: Protocol: Activity Type Activity Date Activity User E-Sign Co-Sign Detail Recorded Client Recorded Date Recorded By Document 05/13/17 12:11 [id number] 05/13/17 12:12 [id number] 05/13/17 12:11 PMRU Outcome: Mobility Physical Therapy Evaluation and Yes Treatment Activity OOB with Assistance Yes Device Yes Assistance Yes Patient to be seen 5x/wk for 60-120 min/ Therex day for: Mobility Training Gait Training W/C Mobility Balance Progression Toward Outcome/Goals Progressing Outcome/Goals Met Maintain/ Achieve Baseline Mobility Status Improve Mobility Status Demonstrates Proper Use of Assistive Devices Free from Complications of Immobility Bed Mobility Yes: independent Transfers Yes: independent with slide board or RW Gait x ft Yes: independent with rolling walker 150' W/C Mobility x ft Yes: independent 150 ' Up/Down Stairs Yes: independent up/ down 12 with 2 rails. Pain/Comfort- Improve/Maintain Start: 05/11/17 22:48 Freq: DAILY Status: Active Target: Protocol: Activity Type Activity Date Activity User E-Sign Co-Sign Detail Recorded Client Recorded Date Recorded By Document 05/14/17 08:00 [id number] 05/14/17 12:15 [id number] 05/14/17 08:00 PMRU Outcome: Pain/Comfort Outcome/Goals Demonstrates Knowledge and Use of Available Comfort Measures Achieves Acceptable Comfort/Pain Level as Determined by Patient/Condit Maintain Comfort Level Allowing Patient to Fully Participate in Rehab Progression Toward Outcome/Goals Progressing Respiratory - Improve/Maintain Start: 05/11/17 22:48 Freq: DAILY Status: Active Target: Protocol: Activity Type Activity Date Activity User E-Sign Co-Sign Detail Recorded Client Recorded Date Recorded By Document 05/14/17 08:00 [id number] 05/14/17 12:15 [id number] 05/14/17 08:00 PMRU Outcome: Respiratory Does Patient Have a Trach No Outcome/Goals Maintain/ Improve O2 Sat per MD Order Maintain/ Improve Activity Tolerance Progression Toward Outcome/Goals Progressing Safety- Improve/Maintain Start: 05/11/17 22:48 Freq: DAILY Status: Active Target: Protocol: Activity Type Activity Date Activity User E-Sign Co-Sign Detail Recorded Client Recorded Date Recorded By Document 05/14/17 08:00 [id number] 05/14/17 12:15 [id number] 05/14/17 08:00 PMRU Outcome: Safety Outcome/Goals Remain Free of Injury or Harm Prevent Falls/ Injury Progression Toward Outcome/Goals Progressing Skin- Improve/Maintain Start: 05/11/17 22:48 Freq: DAILY Status: Active Target: Protocol: Activity Type Activity Date Activity User E-Sign Co-Sign Detail Recorded Client Recorded Date Recorded By Document 05/14/17 08:00 [id number] 05/14/17 12:15 [id number] 05/14/17 08:00 PMRU Outcome: Skin Skin Risk Level Medium Skin Orders Dressing Change Air Mattress Outcome/Goals Maintain/ Improve Skin Intergrity Surgical Incisions Healing Progression Toward Outcome/Goals Progressing Medicine Note: Length of Stay: 3 weeks Anticipated Discharge Destination: Home Tentative Discharge Date: 06/04/17 Discharged to: Home
--- NOTE | 2017-05-14 17:25 | PN ---
Progress Note Date of Service: 05/14/17 Note: JARETT COOPER was visited. Therapy notes read and reviewed.He was discussed in interdisciplinary plan of care rounds. Functionally improving slightly with bed mobilities. Weaning off O2. Transaminases slightly higher. Current Medications: Active Medications Generic Name Dose Route Start Last Admin Trade Name Freq PRN Reason Stop Dose Admin Acetaminophen 650 mg 05/11/17 16:26 05/12/17 23:40 Tylenol Tab* PO 650 mg Q6H PRN Administration FEVER/PAIN Amlodipine Besylate 10 mg 05/12/17 09:00 05/14/17 08:24 Norvasc Tab* PO 10 mg DAILY HODAN Administration Atorvastatin Calcium 20 mg 05/11/17 17:00 05/13/17 17:18 Lipitor* PO 20 mg 1700 HODAN Administration Bisacodyl 10 mg 05/11/17 16:26 Dulcolax Supp* [place] DAILY PRN CONSTIPATION Citalopram Hydrobromide 20 mg 05/11/17 21:00 05/13/17 21:05 Celexa Tab* PO 20 mg BEDTIME HODAN Administration Collagenase 1 applic 05/11/17 17:00 05/12/17 09:15 Santyl 250 Mg/Gm Oint* TOPICAL 1 applic .SEE INSTRUCTIONS HODAN Administration Dextrose 12.5 gm 05/11/17 16:41 D50w Syringe 50 Ml* IV PUSH .FOR FS < 60 - SS PRN FS < 60 Diphenhydramine HCl 25 mg 05/12/17 18:07 05/13/17 22:24 Benadryl Po* PO 25 mg BEDTIME PRN Administration INSOMNIA Docusate Sodium 100 mg 05/11/17 21:00 05/14/17 08:24 Colace Cap* PO 100 mg BID HODAN Administration Folic Acid 1 mg 05/12/17 09:00 05/14/17 08:24 Folvite Tab* PO 1 mg DAILY HODAN Administration Insulin Human Lispro 0 - 15 units 05/11/17 21:00 05/14/17 12:03 Humalog* SUBCUT Not Given ACHS [facility] Protocol Losartan Potassium 100 mg 05/11/17 21:00 05/13/17 21:06 Cozaar Tab* PO 100 mg 2100 HODAN Administration Metoprolol Succinate 100 mg 05/12/17 09:00 05/14/17 08:24 Toprol Xl Tab* PO 100 mg DAILY HODAN Administration Metoprolol Succinate 25 mg 05/11/17 21:00 05/13/17 21:06 Toprol Xl Tab* PO 25 mg 2100 HODAN Administration Rivaroxaban 20 mg 05/11/17 21:00 05/13/17 21:05 Xarelto(*) PO 20 mg 2100 HODAN Administration Senna 2 tab 05/11/17 16:26 Senokot Tab* PO BEDTIME PRN CONSTIPATION Tamsulosin HCl 0.4 mg 05/11/17 21:00 05/13/17 21:05 Flomax Cap* PO 0.4 mg BEDTIME HODAN Administration Vital Signs: Vital Signs Temp Pulse Resp BP Pulse Ox 98.8 F 107 18 138/73 94 05/14/17 05:51 05/14/17 05:51 05/14/17 08:00 05/14/17 05:51 05/14/17 08:00 Lab Results: Laboratory Results - last 24 hr 05/13/17 05/14/17 05/14/17 20:11 06:49 07:16 POC Glucose (mg/dL) 154 H 107 H Total Bilirubin 0.70 Direct Bilirubin 0.40 H Indirect Bilirubin 0.3 AST 166 H ALT 117 H Alkaline Phosphatase 260 H Total Protein 6.8 Albumin 2.8 L Globulin 4.0 Albumin/Globulin Ratio 0.7 L 05/14/17 11:46 POC Glucose (mg/dL) 124 H Total Bilirubin Direct Bilirubin Indirect Bilirubin AST ALT Alkaline Phosphatase Total Protein Albumin Globulin Albumin/Globulin Ratio Exam: LUNGS: Clear HEART: Reg rhythm ABDOMEN: Soft, +BS EXTREMITIES: Left foot has VAC. Dry scaly skin on feet Assessment/Plan: 05/14/17 17:25 1. Respiratory Failure: Finished course of antibiotics. On O2 via [place]. PT/OT 2. Left foot wound/heel ulcer: Continue VAC. Santyl. Surgery Follow up. PT/OT 3. Atrial fibrillation: Toprol/Xarelto 4. Elevated transaminases: Still going up. Will recheck Wednesday. May need GI consult 5. DM: SSI 6. HTN: Norvasc/Toprol/Cozaar 7. BPH: Flomax 8. DVT prophylaxis: On Xarelto 9. Advanced directives: Full code
[2017-05-14] MEDS: Atorvastatin* 20 MG TAB PO SCH (17:45)
[2017-05-14] MEDS: Citalopram TAB* 20 MG PO SCH (20:56)
[2017-05-14] MEDS: Rivaroxaban TAB(*) 10 MG PO SCH (20:56)
[2017-05-14] MEDS: Tamsulosin CAP* 0.4 MG PO SCH (20:56)
[2017-05-14] MEDS: Metoprolol Succinate XL TAB* 25 MG PO SCH (20:57)
[2017-05-14] MEDS: Losartan TAB* 25 MG PO SCH (20:57)
[2017-05-14] MEDS: diPHENhydraMINE PO* 25 MG PO PRN (22:06)
[2017-05-15] MEDS: Insulin LISPRO* 1 UNITS UNIT SUBCUT SCH ×4 (07:19→21:30)
[2017-05-15] MEDS: Folic Acid TAB* 1 MG PO SCH (08:28)
[2017-05-15] MEDS: Docusate CAP* 100 MG PO SCH ×2 (08:28→21:36)
[2017-05-15] MEDS: amLODIPine TAB* 5 MG PO SCH (08:28)
[2017-05-15] MEDS: Metoprolol Succinate XL TAB* 100 MG PO SCH (08:28)
--- NOTE | 2017-05-15 16:23 | PN ---
Progress Note Date of Service: 05/15/17 Note: JARETT COOPER was visited. Nursing and therapy notes read and reviewed. Able to stand today. Feels pretty good. Will order post op shoes. Able to taper off oxygen Current Medications: Active Medications Generic Name Dose Route Start Last Admin Trade Name Freq PRN Reason Stop Dose Admin Acetaminophen 650 mg 05/11/17 16:26 05/12/17 23:40 Tylenol Tab* PO 650 mg Q6H PRN Administration FEVER/PAIN Amlodipine Besylate 10 mg 05/12/17 09:00 05/15/17 08:28 Norvasc Tab* PO 10 mg DAILY HODAN Administration Atorvastatin Calcium 20 mg 05/11/17 17:00 05/14/17 17:45 Lipitor* PO 20 mg 1700 HODAN Administration Bisacodyl 10 mg 05/11/17 16:26 Dulcolax Supp* [place] DAILY PRN CONSTIPATION Citalopram Hydrobromide 20 mg 05/11/17 21:00 05/14/17 20:56 Celexa Tab* PO 20 mg BEDTIME HODAN Administration Collagenase 1 applic 05/11/17 17:00 05/12/17 09:15 Santyl 250 Mg/Gm Oint* TOPICAL 1 applic .SEE INSTRUCTIONS HODAN Administration Dextrose 12.5 gm 05/11/17 16:41 D50w Syringe 50 Ml* IV PUSH .FOR FS < 60 - SS PRN FS < 60 Diphenhydramine HCl 25 mg 05/12/17 18:07 05/14/17 22:06 Benadryl Po* PO 25 mg BEDTIME PRN Administration INSOMNIA Docusate Sodium 100 mg 05/11/17 21:00 05/15/17 08:28 Colace Cap* PO 100 mg BID HODAN Administration Folic Acid 1 mg 05/12/17 09:00 05/15/17 08:28 Folvite Tab* PO 1 mg DAILY HODAN Administration Insulin Human Lispro 0 - 15 units 05/11/17 21:00 05/15/17 12:17 Humalog* SUBCUT 2 units ACHS HODAN Administration Protocol Losartan Potassium 100 mg 05/11/17 21:00 05/14/17 20:57 Cozaar Tab* PO 100 mg 2100 HODAN Administration Metoprolol Succinate 100 mg 05/12/17 09:00 05/15/17 08:28 Toprol Xl Tab* PO 100 mg DAILY HODAN Administration Metoprolol Succinate 25 mg 05/11/17 21:00 05/14/17 20:57 Toprol Xl Tab* PO 25 mg 2100 HODAN Administration Rivaroxaban 20 mg 05/11/17 21:00 05/14/17 20:56 Xarelto(*) PO 20 mg 2100 HODAN Administration Senna 2 tab 05/11/17 16:26 Senokot Tab* PO BEDTIME PRN CONSTIPATION Tamsulosin HCl 0.4 mg 05/11/17 21:00 05/14/17 20:56 Flomax Cap* PO 0.4 mg BEDTIME HODAN Administration Vital Signs: Vital Signs Temp Pulse Resp BP Pulse Ox 97.9 F 83 18 108/64 99 05/15/17 15:46 05/15/17 15:46 05/15/17 15:46 05/15/17 15:46 05/15/17 15:46 Lab Results: Laboratory Results - last 24 hr 05/14/17 05/15/17 05/15/17 20:24 07:16 12:02 POC Glucose (mg/dL) 139 H 122 H 133 H Exam: LUNGS: Clear HEART: Reg rhythm ABDOMEN: Soft, +BS EXTREMITIES: Left foot has VAC. Dry scaly skin on feet Assessment/Plan: 05/15/17 16:23 1. Respiratory Failure: Finished course of antibiotics. Tapered off O2. PT/OT 2. Left foot wound/heel ulcer: Continue VAC. Santyl. Surgery Follow up. PT/OT 3. Atrial fibrillation: Toprol/Xarelto 4. Elevated transaminases: Still going up. Will recheck Wednesday. May need GI consult 5. DM: SSI 6. HTN: Norvasc/Toprol/Cozaar 7. BPH: Flomax 8. DVT prophylaxis: On Xarelto 9. Advanced directives: Full code
[2017-05-15] MEDS: Atorvastatin* 20 MG TAB PO SCH (17:23)
[2017-05-15] MEDS: Losartan TAB* 25 MG PO SCH (21:27)
[2017-05-15] MEDS: Rivaroxaban TAB(*) 10 MG PO SCH (21:29)
[2017-05-15] MEDS: Metoprolol Succinate XL TAB* 25 MG PO SCH (21:29)
[2017-05-15] MEDS: Tamsulosin CAP* 0.4 MG PO SCH (21:29)
[2017-05-15] MEDS: Citalopram TAB* 20 MG PO SCH (21:29)
[2017-05-16] MEDS: Insulin LISPRO* 1 UNITS UNIT SUBCUT SCH ×4 (07:31→21:46)
[2017-05-16] MEDS: amLODIPine TAB* 5 MG PO SCH (08:16)
[2017-05-16] MEDS: Docusate CAP* 100 MG PO SCH ×2 (08:17→21:49)
[2017-05-16] MEDS: Metoprolol Succinate XL TAB* 100 MG PO SCH (08:17)
[2017-05-16] MEDS: Folic Acid TAB* 1 MG PO SCH (08:17)
--- NOTE | 2017-05-16 14:31 | PN ---
Progress Note Date of Service: 05/16/17 Note: JARETT COOPER was visited. Nursing notes read and reviewed. He has remained off oxygen. Will try ambulation with PT tomorrow. Moving better Current Medications: Active Medications Generic Name Dose Route Start Last Admin Trade Name Freq PRN Reason Stop Dose Admin Acetaminophen 650 mg 05/11/17 16:26 05/12/17 23:40 Tylenol Tab* PO 650 mg Q6H PRN Administration FEVER/PAIN Amlodipine Besylate 10 mg 05/12/17 09:00 05/16/17 08:16 Norvasc Tab* PO 10 mg DAILY HODAN Administration Atorvastatin Calcium 20 mg 05/11/17 17:00 05/15/17 17:23 Lipitor* PO 20 mg 1700 HODAN Administration Bisacodyl 10 mg 05/11/17 16:26 Dulcolax Supp* [place] DAILY PRN CONSTIPATION Citalopram Hydrobromide 20 mg 05/11/17 21:00 05/15/17 21:29 Celexa Tab* PO 20 mg BEDTIME HODAN Administration Collagenase 1 applic 05/11/17 17:00 05/12/17 09:15 Santyl 250 Mg/Gm Oint* TOPICAL 1 applic .SEE INSTRUCTIONS HODAN Administration Dextrose 12.5 gm 05/11/17 16:41 D50w Syringe 50 Ml* IV PUSH .FOR FS < 60 - SS PRN FS < 60 Diphenhydramine HCl 25 mg 05/12/17 18:07 05/14/17 22:06 Benadryl Po* PO 25 mg BEDTIME PRN Administration INSOMNIA Docusate Sodium 100 mg 05/11/17 21:00 05/16/17 08:17 Colace Cap* PO 100 mg BID HODAN Administration Folic Acid 1 mg 05/12/17 09:00 05/16/17 08:17 Folvite Tab* PO 1 mg DAILY HODAN Administration Insulin Human Lispro 0 - 15 units 05/11/17 21:00 05/16/17 12:45 Humalog* SUBCUT 2 units ACHS HODAN Administration Protocol Losartan Potassium 100 mg 05/11/17 21:00 05/15/17 21:27 Cozaar Tab* PO 100 mg 2100 HODAN Administration Metoprolol Succinate 100 mg 05/12/17 09:00 05/16/17 08:17 Toprol Xl Tab* PO 100 mg DAILY HODAN Administration Metoprolol Succinate 25 mg 05/11/17 21:00 05/15/17 21:29 Toprol Xl Tab* PO 25 mg 2100 HODAN Administration Rivaroxaban 20 mg 05/11/17 21:00 05/15/17 21:29 Xarelto(*) PO 20 mg 2100 HODAN Administration Senna 2 tab 05/11/17 16:26 Senokot Tab* PO BEDTIME PRN CONSTIPATION Tamsulosin HCl 0.4 mg 05/11/17 21:00 05/15/17 21:29 Flomax Cap* PO 0.4 mg BEDTIME HODAN Administration Vital Signs: Vital Signs Temp Pulse Resp BP Pulse Ox 98.5 F 74 20 118/70 92 05/16/17 04:55 05/16/17 04:55 05/16/17 08:00 05/16/17 04:55 05/16/17 08:00 Lab Results: Laboratory Results - last 24 hr 05/15/17 05/15/17 05/16/17 16:46 20:11 05:28 POC Glucose (mg/dL) 113 H 141 H Total Bilirubin 0.70 Direct Bilirubin 0.30 H Indirect Bilirubin 0.4 AST 123 H ALT 112 H Alkaline Phosphatase 245 H Total Protein 6.8 Albumin 2.7 L Globulin 4.1 H Albumin/Globulin Ratio 0.7 L 05/16/17 05/16/17 07:24 11:25 POC Glucose (mg/dL) 117 H 133 H Total Bilirubin Direct Bilirubin Indirect Bilirubin AST ALT Alkaline Phosphatase Total Protein Albumin Globulin Albumin/Globulin Ratio Exam: LUNGS: Clear HEART: Reg rhythm ABDOMEN: Soft, +BS EXTREMITIES: Left foot has VAC. Dry scaly skin on feet Assessment/Plan: 05/16/17 14:31 1. Respiratory Failure: Finished course of antibiotics. Tapered off O2. PT/OT 2. Left foot wound/heel ulcer: Continue VAC. Santyl. Surgery Follow up. PT/OT 3. Atrial fibrillation: Toprol/Xarelto 4. Elevated transaminases: Down slightly. Still think from Cephalosporin exposure. Will follow 5. DM: SSI 6. HTN: Norvasc/Toprol/Cozaar 7. BPH: Flomax 8. DVT prophylaxis: On Xarelto 9. Advanced directives: Full code
[2017-05-16] MEDS: Atorvastatin* 20 MG TAB PO SCH (16:59)
[2017-05-16] MEDS: Tamsulosin CAP* 0.4 MG PO SCH (21:49)
[2017-05-16] MEDS: Metoprolol Succinate XL TAB* 25 MG PO SCH (21:50)
[2017-05-16] MEDS: Rivaroxaban TAB(*) 10 MG PO SCH (21:50)
[2017-05-16] MEDS: Losartan TAB* 25 MG PO SCH (21:50)
[2017-05-16] MEDS: Citalopram TAB* 20 MG PO SCH (21:51)
[2017-05-16] MEDS: diPHENhydraMINE PO* 25 MG PO PRN (21:56)
[2017-05-17] MEDS: Insulin LISPRO* 1 UNITS UNIT SUBCUT SCH ×4 (07:44→20:43)
[2017-05-17] MEDS: amLODIPine TAB* 5 MG PO SCH (08:21)
[2017-05-17] MEDS: Metoprolol Succinate XL TAB* 100 MG PO SCH (08:21)
[2017-05-17] MEDS: Folic Acid TAB* 1 MG PO SCH (08:22)
[2017-05-17] MEDS: Docusate CAP* 100 MG PO SCH ×2 (08:22→19:29)
[2017-05-17] MEDS: Acetaminophen TAB* 325 MG PO PRN (11:53)
--- NOTE | 2017-05-17 16:57 | PN ---
Progress Note Date of Service: 05/17/17 Note: JARETT COOPER was visited. Therapy notes read and reviewed. Tired today. Able to walk a few steps with therapy. [place] dizzy in therapy. BP was stable. Current Medications: Active Medications Generic Name Dose Route Start Last Admin Trade Name Freq PRN Reason Stop Dose Admin Acetaminophen 650 mg 05/11/17 16:26 05/17/17 11:53 Tylenol Tab* PO 650 mg Q6H PRN Administration FEVER/PAIN Amlodipine Besylate 10 mg 05/12/17 09:00 05/17/17 08:21 Norvasc Tab* PO 10 mg DAILY HODAN Administration Atorvastatin Calcium 20 mg 05/11/17 17:00 05/16/17 16:59 Lipitor* PO 20 mg 1700 HODAN Administration Bisacodyl 10 mg 05/11/17 16:26 Dulcolax Supp* [place] DAILY PRN CONSTIPATION Citalopram Hydrobromide 20 mg 05/11/17 21:00 05/16/17 21:51 Celexa Tab* PO 20 mg BEDTIME HODAN Administration Collagenase 1 applic 05/11/17 17:00 05/12/17 09:15 Santyl 250 Mg/Gm Oint* TOPICAL 1 applic .SEE INSTRUCTIONS HODAN Administration Dextrose 12.5 gm 05/11/17 16:41 D50w Syringe 50 Ml* IV PUSH .FOR FS < 60 - SS PRN FS < 60 Diphenhydramine HCl 25 mg 05/12/17 18:07 05/16/17 21:56 Benadryl Po* PO 25 mg BEDTIME PRN Administration INSOMNIA Docusate Sodium 100 mg 05/11/17 21:00 05/17/17 08:22 Colace Cap* PO 100 mg BID HODAN Administration Folic Acid 1 mg 05/12/17 09:00 05/17/17 08:22 Folvite Tab* PO 1 mg DAILY HODAN Administration Insulin Human Lispro 0 - 15 units 05/11/17 21:00 05/17/17 12:47 Humalog* SUBCUT Not Given ACHS [facility] Protocol Losartan Potassium 100 mg 05/11/17 21:00 05/16/17 21:50 Cozaar Tab* PO 100 mg 2100 HODAN Administration Metoprolol Succinate 100 mg 05/12/17 09:00 05/17/17 08:21 Toprol Xl Tab* PO 100 mg DAILY HODAN Administration Metoprolol Succinate 25 mg 05/11/17 21:00 05/16/17 21:50 Toprol Xl Tab* PO 25 mg 2100 HODAN Administration Rivaroxaban 20 mg 05/11/17 21:00 05/16/17 21:50 Xarelto(*) PO 20 mg 2100 HODAN Administration Senna 2 tab 05/11/17 16:26 Senokot Tab* PO BEDTIME PRN CONSTIPATION Tamsulosin HCl 0.4 mg 05/11/17 21:00 05/16/17 21:49 Flomax Cap* PO 0.4 mg BEDTIME HODAN Administration Vital Signs: Vital Signs Temp Pulse Resp BP Pulse Ox 98.3 F 88 20 157/108 94 05/17/17 16:52 05/17/17 16:54 05/17/17 16:52 05/17/17 16:52 05/17/17 16:52 Lab Results: Laboratory Results - last 24 hr 05/16/17 05/16/17 05/17/17 16:49 20:49 07:35 POC Glucose (mg/dL) 109 H 105 H 110 H 05/17/17 05/17/17 09:47 12:00 POC Glucose (mg/dL) 167 H 105 H Exam: LUNGS: Clear HEART: Reg rhythm ABDOMEN: Soft, +BS EXTREMITIES: Left foot has VAC. Dry scaly skin on feet Assessment/Plan: 05/17/17 16:58 1. Respiratory Failure: Finished course of antibiotics. Tapered off O2. PT/OT 2. Left foot wound/heel ulcer: Continue VAC. Santyl. Surgery Follow up. PT/OT 3. Atrial fibrillation: Toprol/Xarelto 4. Elevated transaminases: Down slightly on last check. Still think from Cephalosporin exposure. Will follow 5. DM: SSI 6. HTN: Norvasc/Toprol/Cozaar 7. BPH: Flomax 8. DVT prophylaxis: On Xarelto 9. Advanced directives: Full code
[2017-05-17] MEDS: Atorvastatin* 20 MG TAB PO SCH (17:29)
[2017-05-17] MEDS: Rivaroxaban TAB(*) 10 MG PO SCH (20:43)
[2017-05-17] MEDS: Tamsulosin CAP* 0.4 MG PO SCH (20:43)
[2017-05-17] MEDS: Metoprolol Succinate XL TAB* 25 MG PO SCH (20:43)
[2017-05-17] MEDS: Citalopram TAB* 20 MG PO SCH (20:43)
[2017-05-17] MEDS: Losartan TAB* 25 MG PO SCH (20:43)
[2017-05-18] MEDS: diPHENhydraMINE PO* 25 MG PO PRN (00:35)
[2017-05-18] MEDS: Metoprolol Succinate XL TAB* 100 MG PO SCH (08:13)
[2017-05-18] MEDS: Docusate CAP* 100 MG PO SCH ×2 (08:13→19:08)
[2017-05-18] MEDS: Insulin LISPRO* 1 UNITS UNIT SUBCUT SCH ×4 (08:13→21:34)
[2017-05-18] MEDS: Folic Acid TAB* 1 MG PO SCH (08:14)
[2017-05-18] MEDS: amLODIPine TAB* 5 MG PO SCH (08:14)
[2017-05-18] MEDS: Collagenase 250 MG/GM OINT* 30 GM TOPICAL SCH (11:14)
--- NOTE | 2017-05-18 12:39 | PMRUTEAM ---
PMRU: Goals Current Status: Nursing: Current Status Skin Deviations [Right Other Buttocks] Skin Deviations [Left Foot] Incision,Pressure Ulcer Skin Deviations [Right Lower Abrasion Posterior Leg] Skin Deviations [Right Heel] Pressure Ulcer Skin Deviations [Left Heel] Pressure Ulcer Skin Deviation Description [ redness, cream applied, healing well Right Buttocks] Skin Deviation Description [ Wound Vac dressing changed today Left Foot] Skin Deviation Description [ drsg in place Right Lower Posterior Leg] Skin Deviation Description [ mepilex changed Right Heel] Skin Deviation Description [ dressing changed Left Heel] Drain Type [Left Foot] Wound Vac Wound Stage [Right Buttocks] I Wound Stage [Right Heel] II Wound Stage [Left Heel] Unstageable Bladder Current Status Using Urinal, helper positions/holds/empties urinal. Bowel Current Status occasionally incontinent Last BM 05/17/17 Nutrition Current Status excellent Medication Current Status supervision Physical Therapy: Current Status Bed Mobility Assistance Supervision Transfer Moblility Assistance Supervision,Contact Guard Assist Transfer/Bed Mobility Rolling Walker Recommended Devices Transfer Mobility Comment Pt. is able to perform a SPT using a 2 w/w cg to S x 1. Ambulation Assistance Supervision,Contact Guard Assist Ambulation Assistive Devices Rolling Walker Number of Feet Patient 60' x 2 Ambulated Ambulation Comment Pt. presents a slow controlled reciiprocal type gait pattern Stairs Assistance Not Tested Stairs Recommended Devices Two Rails Number of Stairs Flight Curb Not Tested Wheelchair Distance (ft) 50 Occupational Therapy: Current Status Upper Body Dressing Supervision,Min Assist Lower Body Dressing Max Asst,Total Assist Bathing Mod Assist Toileting Total Assist Toilet Transfer Contact Guard Assist,Min Assist Shower Transfer Total Assist Shower Transfer Progress roll in in w/c Eating Independent Rec Therapy: Current Status Summary of Assessment and RT assessment complete and pt. is aware of RT Clinical Impression services. Pt. has leisure material in his room and has been engaged in leisure visits. Treatment Goals Pt. will engage in leisure activities while on the unit. Treatment Plan Provide RT services and encourage involvement. Social Work: Current Status Discharge Plan return home with home care svs and family support Potential for Family Training pt's is attentive and involved Anticipated Discharge Home Destination Discharge With home care svs and family support Nutrition: Current Status Monitoring pt is eating well on consistent carb diet; overall improved appetite in past 1-2 weeks. FS generally ranging 100s-130s, so under good control . Historically, A1c has been good (5.5%). Other than wound vac to left foot, skin is intact with low risk for breakdown. Bowel are regulating; daily BMs. Appears to be meeting goals as outlined below. Goals: Physical Therapy: Initial Goals Bed Mobility Assistance Independent Transfer Mobility Assistance Independent Transfer/Bed Mobility Rolling Walker Recommended Devices Ambulation Independent Ambulation Recommended Devices Rolling Walker Ambulation Distance 150 Wheelchair Propulsion Ability Independent Wheelchair Distance (ft) 150 Stairs Assistance Independent Stair Recommended Devices Two Rails Number of Stairs 12 Physical Therapy: Updated Goals Bed Mobility Assistance Independent Transfer Mobility Assistance Independent Transfer/Bed Mobility Rolling Walker Recommended Devices Ambulation Assistance Independent Ambulation Assistive Devices Rolling Walker Ambulation Distance (ft) 150 Stairs Assistance Independent Stairs Recommended Devices Two Rails Number of Stairs 12 Occupational Therapy: Initial Goals Goals to be Completed in (Days 2-3 weeks ) Upper Body Bathing Routine Independent Lower Body Bathing Routine Modified Independent with Upper Body Dressing Routine Independent Lower Body Dressing Routine Modified Independent with Toilet Hygeine and Clothing Modified Independent with Management Routine Toilet Transfer Routine Modified Independent with Tub Transfer Routine Modified Independent with Functional Transfers for ADL Modified Independent with Grooming Routine Independent Feeding Routine Independent Nursing: Goals Bladder Goal independent Bowel Goal continent, independent Nutrition Goal 100% all meals Medication Goal independent Nutrition: Goals Intervention Goals 1. Adequate PO intake to maintain lean body mass w /o promoting undesired weight gain 2. Promote wound healing - high protein meals/ snacks as able 3. Adequate glycemic control per inpatient parameters 4. Achieve regularity of BM w/o constipation (or diarrhea) Social Work: Goals Discharge Plan return home with home care svs and family support Potential for Family Training pt's is attentive and involved Anticipated Discharge Home Destination Discharge With home care svs and family support Care Plan: Care Plan ADL's - Improve/Maintain Start: 05/11/17 22:48 Freq: DAILY Status: Active Target: Protocol: Activity Type Activity Date Activity User E-Sign Co-Sign Detail Recorded Client Recorded Date Recorded By Document 05/17/17 15:33 [id number] 05/17/17 15:34 [id number] 05/17/17 15:33 PMRU Outcome: ADL's/ADL Transfers Orders/Interventions Occupational Therapy Evaluation & Treatment Communication Tool in Patient Room Device Yes Patient to receive OT 5x/wk for 60-120 Therex min/day Self Care Management Group Therapy UE/LE ADL's with Assist Yes: Chava ADL Transfers with Assist Yes: Chava Toileting: Transfers,Clothing Management Yes: Chava ,Hygeine w/Assist Progression Toward Outcome/Goals Progressing Outcome/Goals Met Pt participated well, able to transfer during ADL routine using FWW/gait belt instead of EZ stand. Cardiovascular- Improve/Maintain Start: 05/11/17 22:48 Freq: DAILY Status: Active Target: Protocol: Activity Type Activity Date Activity User E-Sign Co-Sign Detail Recorded Client Recorded Date Recorded By Document 05/18/17 11:37 [id number] 05/18/17 11:37 [id number] 05/18/17 11:37 PMRU Outcome: Cardiovascular Vital Signs q Shift for 48hrs Then BID Yes Daily Weight Ordered No Current Cardiovascular Outcome/Goal Maintain/ Achieve Baseline HR, BP , Perfusion Maintain/ Achieve Hemodynamic Stability Free of Abnormal Cardiac Symptoms Progression Toward Outcome/Goal Progressing Outcome/Goals Met Comment HX of AFIB DVT Prophylaxis- Improve/Maintain Start: 05/11/17 22:48 Freq: DAILY Status: Active Target: Protocol: Activity Type Activity Date Activity User E-Sign Co-Sign Detail Recorded Client Recorded Date Recorded By Document 05/18/17 11:37 [id number] 05/18/17 11:37 [id number] 05/18/17 11:37 PMRU Outcome: DVT Prophylaxis Outcome/Goals Remains Free of DVT TEDS Stockings on Every AM, Off at HS Progression Toward Outcome/Goals Progressing Discharge Planning - Improve/Maintain Start: 05/11/17 22:48 Freq: DAILY Status: Active Target: Protocol: Activity Type Activity Date Activity User E-Sign Co-Sign Detail Recorded Client Recorded Date Recorded By Document 05/18/17 11:37 [id number] 05/18/17 11:37 [id number] 05/18/17 11:37 PMRU Outcome: Discharge Planning Identify Patient Needs yes Update Patient Family No Outcome/Goals Demonstrates Understanding of Discharge Plan Progression Toward Outcome/Goals Progressing Metabolic Status- Improve/Maintain Start: 05/11/17 22:48 Freq: DAILY Status: Active Target: Protocol: Activity Type Activity Date Activity User E-Sign Co-Sign Detail Recorded Client Recorded Date Recorded By Document 05/18/17 11:37 [id number] 05/18/17 11:37 [id number] 05/18/17 11:37 PMRU Outcome: Metabolic Status Have Fingersticks Been Ordered Yes Fingerstick Order Frequency AC & HS Outcome/Goals Maintain/ Improve Metabolic Status Demonstrate Knowledge of Prevention/ Treatment of Metabolic Imbalances Progression Toward Outcome/Goals Progressing Mobility- Improve/Maintain Start: 05/11/17 22:48 Freq: DAILY Status: Active Target: Protocol: Activity Type Activity Date Activity User E-Sign Co-Sign Detail Recorded Client Recorded Date Recorded By Document 05/15/17 15:19 [id number] 05/15/17 15:19 [id number] 05/15/17 15:19 PMRU Outcome: Mobility Physical Therapy Evaluation and Yes Treatment Activity OOB with Assistance Yes Device Yes Assistance Yes Patient to be seen 5x/wk for 60-120 min/ Therex day for: Mobility Training Gait Training W/C Mobility Balance Progression Toward Outcome/Goals Progressing Outcome/Goals Met Maintain/ Achieve Baseline Mobility Status Improve Mobility Status Demonstrates Proper Use of Assistive Devices Free from Complications of Immobility Bed Mobility Yes: independent Transfers Yes: independent with slide board or RW Gait x ft Yes: independent with rolling walker 150' W/C Mobility x ft Yes: independent 150 ' Up/Down Stairs Yes: independent up/ down 12 with 2 rails. Pain/Comfort- Improve/Maintain Start: 05/11/17 22:48 Freq: DAILY Status: Active Target: Protocol: Activity Type Activity Date Activity User E-Sign Co-Sign Detail Recorded Client Recorded Date Recorded By Document 05/18/17 11:37 [id number] [id number] 05/18/17 11:37 [id number] 05/18/17 11:37 PMRU Outcome: Pain/Comfort Outcome/Goals Demonstrates Knowledge and Use of Available Comfort Measures Achieves Acceptable Comfort/Pain Level as Determined by Patient/Condit Maintain Comfort Level Allowing Patient to Fully Participate in Rehab Progression Toward Outcome/Goals Progressing Outcome/Goals Met Comment denies pain Respiratory - Improve/Maintain Start: 05/11/17 22:48 Freq: DAILY Status: Active Target: Protocol: Activity Type Activity Date Activity User E-Sign Co-Sign Detail Recorded Client Recorded Date Recorded By Document 05/18/17 11:37 [id number] 05/18/17 11:37 [id number] 05/18/17 11:37 PMRU Outcome: Respiratory Does Patient Have a Trach No Outcome/Goals Maintain/ Improve O2 Sat per MD Order Maintain/ Improve Activity Tolerance Progression Toward Outcome/Goals Progressing Safety- Improve/Maintain Start: 05/11/17 22:48 Freq: DAILY Status: Active Target: Protocol: Activity Type Activity Date Activity User E-Sign Co-Sign Detail Recorded Client Recorded Date Recorded By Document 05/18/17 11:37 [id number] 05/18/17 11:37 [id number] 05/18/17 11:37 PMRU Outcome: Safety Outcome/Goals Remain Free of Injury or Harm Prevent Falls/ Injury Progression Toward Outcome/Goals Progressing Skin- Improve/Maintain Start: 05/11/17 22:48 Freq: DAILY Status: Active Target: Protocol: Activity Type Activity Date Activity User E-Sign Co-Sign Detail Recorded Client Recorded Date Recorded By Document 05/18/17 11:37 [id number] 05/18/17 11:37 [id number] 05/18/17 11:37 PMRU Outcome: Skin Skin Risk Level Medium Skin Orders Dressing Change Air Mattress Outcome/Goals Maintain/ Improve Skin Intergrity Surgical Incisions Healing Progression Toward Outcome/Goals Progressing Medicine Note: Length of Stay: 10 days Anticipated Discharge Destination: Home Tentative Discharge Date: 05/28/17 Discharged to: home
--- NOTE | 2017-05-18 16:27 | PN ---
Progress Note Date of Service: 05/18/17 Note: JRAETT COOPER was visited. Therapy notes read and reviewed. He was discussed in interdisciplinary team rounds. He has made a lot of gains; now standing. Off oxygen. Current Medications: Active Medications Generic Name Dose Route Start Last Admin Trade Name Freq PRN Reason Stop Dose Admin Acetaminophen 650 mg 05/11/17 16:26 05/17/17 11:53 Tylenol Tab* PO 650 mg Q6H PRN Administration FEVER/PAIN Amlodipine Besylate 10 mg 05/12/17 09:00 05/18/17 08:14 Norvasc Tab* PO 10 mg DAILY HODAN Administration Atorvastatin Calcium 20 mg 05/11/17 17:00 05/17/17 17:29 Lipitor* PO 20 mg 1700 HODAN Administration Bisacodyl 10 mg 05/11/17 16:26 Dulcolax Supp* [place] DAILY PRN CONSTIPATION Citalopram Hydrobromide 20 mg 05/11/17 21:00 05/17/17 20:43 Celexa Tab* PO 20 mg BEDTIME HODAN Administration Collagenase 1 applic 05/11/17 17:00 05/18/17 11:14 Santyl 250 Mg/Gm Oint* TOPICAL 1 applic .SEE INSTRUCTIONS HODAN Administration Dextrose 12.5 gm 05/11/17 16:41 D50w Syringe 50 Ml* IV PUSH .FOR FS < 60 - SS PRN FS < 60 Diphenhydramine HCl 25 mg 05/12/17 18:07 05/18/17 00:35 Benadryl Po* PO 25 mg BEDTIME PRN Administration INSOMNIA Docusate Sodium 100 mg 05/11/17 21:00 05/18/17 08:13 Colace Cap* PO Not Given BID HODAN Folic Acid 1 mg 05/12/17 09:00 05/18/17 08:14 Folvite Tab* PO 1 mg DAILY HODAN Administration Insulin Human Lispro 0 - 15 units 05/11/17 21:00 05/18/17 16:16 Humalog* SUBCUT Not Given ACHS [facility] Protocol Losartan Potassium 100 mg 05/11/17 21:00 05/17/17 20:43 Cozaar Tab* PO 100 mg 2100 HODAN Administration Metoprolol Succinate 100 mg 05/12/17 09:00 05/18/17 08:13 Toprol Xl Tab* PO 100 mg DAILY HODAN Administration Metoprolol Succinate 25 mg 05/11/17 21:00 05/17/17 20:43 Toprol Xl Tab* PO 25 mg 2100 HODAN Administration Rivaroxaban 20 mg 05/18/17 21:00 Xarelto(*) PO 2100 HODAN Senna 2 tab 05/11/17 16:26 Senokot Tab* PO BEDTIME PRN CONSTIPATION Tamsulosin HCl 0.4 mg 05/11/17 21:00 05/17/17 20:43 Flomax Cap* PO 0.4 mg BEDTIME HODAN Administration Vital Signs: Vital Signs Temp Pulse Resp BP Pulse Ox 97.6 F 83 20 105/73 97 05/18/17 15:32 05/18/17 15:32 05/18/17 16:18 05/18/17 15:32 05/18/17 16:18 Lab Results: Laboratory Results - last 24 hr 05/17/17 05/17/17 05/18/17 16:49 20:16 07:59 POC Glucose (mg/dL) 117 H 132 H 115 H 05/18/17 12:07 POC Glucose (mg/dL) 110 H Exam: LUNGS: Clear HEART: Reg rhythm ABDOMEN: Soft, +BS EXTREMITIES: Left foot has VAC. Dry scaly skin on feet Assessment/Plan: 05/18/17 16:27 1. Respiratory Failure: Finished course of antibiotics. Tapered off O2. PT/OT 2. Left foot wound/heel ulcer: Continue VAC. Santyl. Surgery Follow up. PT/OT 3. Atrial fibrillation: Toprol/Xarelto 4. Elevated transaminases: Down slightly on last check. Still think from Cephalosporin exposure. Will check in am 5. DM: SSI 6. HTN: Norvasc/Toprol/Cozaar 7. BPH: Flomax 8. DVT prophylaxis: On Xarelto 9. Advanced directives: Full code
[2017-05-18] MEDS: Atorvastatin* 20 MG TAB PO SCH (16:50)
[2017-05-18] MEDS: Citalopram TAB* 20 MG PO SCH (21:33)
[2017-05-18] MEDS: Losartan TAB* 25 MG PO SCH (21:33)
[2017-05-18] MEDS: Tamsulosin CAP* 0.4 MG PO SCH (21:33)
[2017-05-18] MEDS: Rivaroxaban TAB(*) 20 MG TAB PO SCH (21:33)
[2017-05-18] MEDS: Metoprolol Succinate XL TAB* 25 MG PO SCH (21:34)
[2017-05-19 07:23] LABS: Hematocrit 38 % (42-52); Hemoglobin 12.7 g/dl (14.0-18.0); Mean Corpuscular HGB Conc 33 g/dl (31-36); Mean Corpuscular Hemoglobin 33 pg (27-31); Mean Corpuscular Volume 98 fL (80-94); Mean Platelet Volume 10 um3 (7.4-10.4); Platelet Count 369 10^3/ul (150-450); Red Blood Count 3.92 10^6/ul (4.0-5.4); Red Cell Distribution Width 15 % (10.5-15); White Blood Count 11.7 10^3/ul (3.5-10.8)
[2017-05-19 07:35] LABS: ABS Basophils 0.2 10^3/ul (0-0.2); ABS Eosinophils 0.7 10^3/ul (0-0.6); ABS Monocytes 1.5 10^3/ul (0-0.8); ABS Neutrophils 7.3 10^3/ul (1.5-7.7); ABS Nucleated RBC 0 10^3/ul; Eosinophil % 5.8 % (0-6); Lymphocyte % 17.2 % (25-47); Nucleated Red Blood Cells % 0
[2017-05-19] MEDS: Insulin LISPRO* 1 UNITS UNIT SUBCUT SCH ×4 (08:03→20:31)
[2017-05-19] MEDS: Docusate CAP* 100 MG PO SCH ×2 (08:03→20:33)
[2017-05-19] MEDS: Metoprolol Succinate XL TAB* 100 MG PO SCH (08:30)
[2017-05-19] MEDS: amLODIPine TAB* 5 MG PO SCH (08:30)
[2017-05-19] MEDS: Folic Acid TAB* 1 MG PO SCH (08:30)
--- NOTE | 2017-05-19 16:56 | PN ---
Progress Note Date of Service: 05/19/17 Note: JARETT COOPER was visited. Therapy notes read and reviewed. LFTs are slowly going down. He was able to get around better with therapy. May have debridement of the foot wound. Current Medications: Active Medications Generic Name Dose Route Start Last Admin Trade Name Freq PRN Reason Stop Dose Admin Acetaminophen 650 mg 05/11/17 16:26 05/17/17 11:53 Tylenol Tab* PO 650 mg Q6H PRN Administration FEVER/PAIN Amlodipine Besylate 10 mg 05/12/17 09:00 05/19/17 08:30 Norvasc Tab* PO 10 mg DAILY HODAN Administration Atorvastatin Calcium 20 mg 05/11/17 17:00 05/18/17 16:50 Lipitor* PO 20 mg 1700 HODAN Administration Bisacodyl 10 mg 05/11/17 16:26 Dulcolax Supp* [place] DAILY PRN CONSTIPATION Citalopram Hydrobromide 20 mg 05/11/17 21:00 05/18/17 21:33 Celexa Tab* PO 20 mg BEDTIME HODAN Administration Collagenase 1 applic 05/11/17 17:00 05/18/17 11:14 Santyl 250 Mg/Gm Oint* TOPICAL 1 applic .SEE INSTRUCTIONS HODAN Administration Dextrose 12.5 gm 05/11/17 16:41 D50w Syringe 50 Ml* IV PUSH .FOR FS < 60 - SS PRN FS < 60 Diphenhydramine HCl 25 mg 05/12/17 18:07 05/18/17 00:35 Benadryl Po* PO 25 mg BEDTIME PRN Administration INSOMNIA Docusate Sodium 100 mg 05/11/17 21:00 05/19/17 08:03 Colace Cap* PO Not Given BID HODAN Folic Acid 1 mg 05/12/17 09:00 05/19/17 08:30 Folvite Tab* PO 1 mg DAILY HODAN Administration Insulin Human Lispro 0 - 15 units 05/11/17 21:00 05/19/17 16:48 Humalog* SUBCUT Not Given ACHS [facility] Protocol Losartan Potassium 100 mg 05/11/17 21:00 05/18/17 21:33 Cozaar Tab* PO 100 mg 2100 HODAN Administration Metoprolol Succinate 100 mg 05/12/17 09:00 05/19/17 08:30 Toprol Xl Tab* PO 100 mg DAILY HODAN Administration Metoprolol Succinate 25 mg 05/11/17 21:00 05/18/17 21:34 Toprol Xl Tab* PO 25 mg 2100 HODAN Administration Rivaroxaban 20 mg 05/18/17 21:00 05/18/17 21:33 Xarelto(*) PO 20 mg 2100 HODAN Administration Senna 2 tab 05/11/17 16:26 Senokot Tab* PO BEDTIME PRN CONSTIPATION Tamsulosin HCl 0.4 mg 05/11/17 21:00 05/18/17 21:33 Flomax Cap* PO 0.4 mg BEDTIME HODAN Administration Vital Signs: Vital Signs Temp Pulse Resp BP Pulse Ox 98.4 F 76 18 128/78 95 05/19/17 15:44 05/19/17 15:44 05/19/17 16:02 05/19/17 16:09 05/19/17 16:02 Lab Results: Laboratory Results - last 24 hr 05/18/17 05/19/17 05/19/17 20:00 06:49 06:49 WBC 11.7 H RBC 3.92 L Hgb 12.7 L Hct 38 L MCV 98 H MCH 33 H MCHC 33 RDW 15 Plt Count 369 MPV 10 Neut % (Auto) 62.5 Lymph % (Auto) 17.2 L Lawrence % (Auto) 13.0 H Eos % (Auto) 5.8 Baso % (Auto) 1.5 Absolute Neuts (auto) 7.3 Absolute Lymphs (auto) 2.0 Absolute Monos (auto) 1.5 H Absolute Eos (auto) 0.7 H Absolute Basos (auto) 0.2 Absolute Nucleated RBC 0 Nucleated RBC % 0 Sodium 137 Potassium 4.5 Chloride 105 Carbon Dioxide 28 Anion Gap 4 BUN 22 Creatinine 1.05 Est GFR ( Amer) 90.1 Est GFR (Non-Af Amer) 70.0 BUN/Creatinine Ratio 21.0 H Glucose 103 H POC Glucose (mg/dL) 164 H Calcium 9.2 Total Bilirubin 0.70 Direct Bilirubin 0.20 H Indirect Bilirubin 0.5 AST 96 H ALT 112 H Alkaline Phosphatase 282 H Total Protein 7.2 Albumin 3.1 L Globulin 4.1 H Albumin/Globulin Ratio 0.8 L 05/19/17 05/19/17 07:55 12:00 WBC RBC Hgb Hct MCV MCH MCHC RDW Plt Count MPV Neut % (Auto) Lymph % (Auto) Lawrence % (Auto) Eos % (Auto) Baso % (Auto) Absolute Neuts (auto) Absolute Lymphs (auto) Absolute Monos (auto) Absolute Eos (auto) Absolute Basos (auto) Absolute Nucleated RBC Nucleated RBC % Sodium Potassium Chloride Carbon Dioxide Anion Gap BUN Creatinine Est GFR ( Amer) Est GFR (Non-Af Amer) BUN/Creatinine Ratio Glucose POC Glucose (mg/dL) 120 H 113 H Calcium Total Bilirubin Direct Bilirubin Indirect Bilirubin AST ALT Alkaline Phosphatase Total Protein Albumin Globulin Albumin/Globulin Ratio Exam: LUNGS: Clear HEART: Reg rhythm ABDOMEN: Soft, +BS EXTREMITIES: Left foot has VAC. Dry scaly skin on feet Assessment/Plan: 05/19/17 16:56 1. Respiratory Failure: Finished course of antibiotics. Tapered off O2. PT/OT 2. Left foot wound/heel ulcer: Continue VAC. Santyl. Surgery Follow up. PT/OT 3. Atrial fibrillation: Toprol/Xarelto 4. Elevated transaminases: Down slightly on last check. Still think from Cephalosporin exposure. 5. DM: SSI 6. HTN: Norvasc/Toprol/Cozaar 7. BPH: Flomax 8. DVT prophylaxis: On Xarelto 9. Advanced directives: Full code
[2017-05-19] MEDS: Atorvastatin* 20 MG TAB PO SCH (17:06)
[2017-05-19] MEDS: Losartan TAB* 25 MG PO SCH (20:31)
[2017-05-19] MEDS: Citalopram TAB* 20 MG PO SCH (20:31)
[2017-05-19] MEDS: Rivaroxaban TAB(*) 20 MG TAB PO SCH (20:31)
[2017-05-19] MEDS: Metoprolol Succinate XL TAB* 25 MG PO SCH (20:31)
[2017-05-19] MEDS: Tamsulosin CAP* 0.4 MG PO SCH (20:31)
[2017-05-19] MEDS: diPHENhydraMINE PO* 25 MG PO PRN (20:38)
[2017-05-20] MEDS: Insulin LISPRO* 1 UNITS UNIT SUBCUT SCH ×4 (07:42→20:50)
[2017-05-20] MEDS: Docusate CAP* 100 MG PO SCH ×2 (09:24→20:47)
[2017-05-20] MEDS: Metoprolol Succinate XL TAB* 100 MG PO SCH (09:24)
[2017-05-20] MEDS: Folic Acid TAB* 1 MG PO SCH (09:24)
[2017-05-20] MEDS: amLODIPine TAB* 5 MG PO SCH (09:27)
[2017-05-20] MEDS: Atorvastatin* 20 MG TAB PO SCH (17:05)
--- NOTE | 2017-05-20 17:35 | PN ---
Progress Note Date of Service: 05/20/17 Note: JARETT COOPER was visited. Therapy notes read and reviewed. Dr. Rojas to see tomorrow. Meanwhile he is becoming much more mobile. Current Medications: Active Medications Generic Name Dose Route Start Last Admin Trade Name Freq PRN Reason Stop Dose Admin Acetaminophen 650 mg 05/11/17 16:26 05/17/17 11:53 Tylenol Tab* PO 650 mg Q6H PRN Administration FEVER/PAIN Amlodipine Besylate 10 mg 05/12/17 09:00 05/20/17 09:27 Norvasc Tab* PO 10 mg DAILY HODAN Administration Atorvastatin Calcium 20 mg 05/11/17 17:00 05/20/17 17:05 Lipitor* PO 20 mg 1700 HODAN Administration Bisacodyl 10 mg 05/11/17 16:26 Dulcolax Supp* [place] DAILY PRN CONSTIPATION Citalopram Hydrobromide 20 mg 05/11/17 21:00 05/19/17 20:31 Celexa Tab* PO 20 mg BEDTIME HODAN Administration Collagenase 1 applic 05/11/17 17:00 05/18/17 11:14 Santyl 250 Mg/Gm Oint* TOPICAL 1 applic .SEE INSTRUCTIONS HODAN Administration Dextrose 12.5 gm 05/11/17 16:41 D50w Syringe 50 Ml* IV PUSH .FOR FS < 60 - SS PRN FS < 60 Diphenhydramine HCl 25 mg 05/12/17 18:07 05/19/17 20:38 Benadryl Po* PO 25 mg BEDTIME PRN Administration INSOMNIA Docusate Sodium 100 mg 05/11/17 21:00 05/20/17 09:24 Colace Cap* PO 100 mg BID HODAN Administration Folic Acid 1 mg 05/12/17 09:00 05/20/17 09:24 Folvite Tab* PO 1 mg DAILY HODAN Administration Insulin Human Lispro 0 - 15 units 05/11/17 21:00 05/20/17 16:39 Humalog* SUBCUT Not Given ACHS [facility] Protocol Losartan Potassium 100 mg 05/11/17 21:00 05/19/17 20:31 Cozaar Tab* PO 100 mg 2100 HDOAN Administration Metoprolol Succinate 100 mg 05/12/17 09:00 05/20/17 09:24 Toprol Xl Tab* PO 100 mg DAILY HOADN Administration Metoprolol Succinate 25 mg 05/11/17 21:00 05/19/17 20:31 Toprol Xl Tab* PO 25 mg 2100 HODAN Administration Rivaroxaban 20 mg 05/18/17 21:00 05/19/17 20:31 Xarelto(*) PO 20 mg 2100 HODAN Administration Senna 2 tab 05/11/17 16:26 Senokot Tab* PO BEDTIME PRN CONSTIPATION Tamsulosin HCl 0.4 mg 05/11/17 21:00 05/19/17 20:31 Flomax Cap* PO 0.4 mg BEDTIME HODAN Administration Vital Signs: Vital Signs Temp Pulse Resp BP Pulse Ox 97.9 F 75 16 101/66 98 05/20/17 15:38 05/20/17 15:38 05/20/17 15:38 05/20/17 15:38 05/20/17 15:38 Lab Results: Laboratory Results - last 24 hr 05/19/17 05/20/17 05/20/17 20:25 07:37 11:51 POC Glucose (mg/dL) 131 H 107 H 123 H 05/20/17 16:31 POC Glucose (mg/dL) 87 Exam: LUNGS: Clear HEART: Reg rhythm ABDOMEN: Soft, +BS EXTREMITIES: Vac off today. Dry scaly skin on feet Assessment/Plan: 05/20/17 17:36 1. Respiratory Failure: Finished course of antibiotics. Tapered off O2. PT/OT 2. Left foot wound/heel ulcer: Continue VAC. Santyl. Surgery Follow up. PT/OT 3. Atrial fibrillation: Toprol/Xarelto 4. Elevated transaminases: Down slightly on last check. Still think from Cephalosporin exposure. 5. DM: SSI 6. HTN: Norvasc/Toprol/Cozaar 7. BPH: Flomax 8. DVT prophylaxis: On Xarelto 9. Advanced directives: Full code
[2017-05-20] MEDS: Losartan TAB* 25 MG PO SCH (20:47)
[2017-05-20] MEDS: Tamsulosin CAP* 0.4 MG PO SCH (20:47)
[2017-05-20] MEDS: Rivaroxaban TAB(*) 20 MG TAB PO SCH (20:47)
[2017-05-20] MEDS: Metoprolol Succinate XL TAB* 25 MG PO SCH (20:47)
[2017-05-20] MEDS: Citalopram TAB* 20 MG PO SCH (20:48)
[2017-05-20] MEDS: diPHENhydraMINE PO* 25 MG PO PRN (22:03)
[2017-05-21] MEDS: amLODIPine TAB* 5 MG PO SCH (07:35)
[2017-05-21] MEDS: Docusate CAP* 100 MG PO SCH ×2 (07:35→20:48)
[2017-05-21] MEDS: Metoprolol Succinate XL TAB* 100 MG PO SCH (07:35)
[2017-05-21] MEDS: Folic Acid TAB* 1 MG PO SCH (07:36)
--- NOTE | 2017-05-21 10:49 | PN ---
Progress Note Date of Service: 05/21/17 Note: JARETT COOPER was visited. Therapy and nursing notes read and reviewed. Dr. Rojas was in today and we discussed Jarett's care. Jarett feels more hopeful that he will not need further amputations. No chest pain, shortness of breath or abdominal pain. Current Medications: Active Medications Generic Name Dose Route Start Last Admin Trade Name Freq PRN Reason Stop Dose Admin Acetaminophen 650 mg 05/11/17 16:26 05/17/17 11:53 Tylenol Tab* PO 650 mg Q6H PRN Administration FEVER/PAIN Amlodipine Besylate 10 mg 05/12/17 09:00 05/21/17 07:35 Norvasc Tab* PO 10 mg DAILY HODAN Administration Atorvastatin Calcium 20 mg 05/11/17 17:00 05/20/17 17:05 Lipitor* PO 20 mg 1700 HODAN Administration Bisacodyl 10 mg 05/11/17 16:26 Dulcolax Supp* CT DAILY PRN CONSTIPATION Citalopram Hydrobromide 20 mg 05/11/17 21:00 05/20/17 20:48 Celexa Tab* PO 20 mg BEDTIME HODAN Administration Collagenase 1 applic 05/21/17 09:00 Santyl 250 Mg/Gm Oint* TOPICAL Q48H HODAN Dextrose 12.5 gm 05/11/17 16:41 D50w Syringe 50 Ml* IV PUSH .FOR FS < 60 - SS PRN FS < 60 Diphenhydramine HCl 25 mg 05/12/17 18:07 05/20/17 22:03 Benadryl Po* PO 25 mg BEDTIME PRN Administration INSOMNIA Docusate Sodium 100 mg 05/11/17 21:00 05/21/17 07:35 Colace Cap* PO 100 mg BID HODAN Administration Folic Acid 1 mg 05/12/17 09:00 05/21/17 07:36 Folvite Tab* PO 1 mg DAILY HODAN Administration Insulin Human Lispro 0 - 15 units 05/11/17 21:00 05/20/17 20:50 Humalog* SUBCUT Not Given ACHS [facility] Protocol Losartan Potassium 100 mg 05/11/17 21:00 05/20/17 20:47 Cozaar Tab* PO 100 mg 2100 HODAN Administration Metoprolol Succinate 100 mg 05/12/17 09:00 05/21/17 07:35 Toprol Xl Tab* PO 100 mg DAILY HODAN Administration Metoprolol Succinate 25 mg 05/11/17 21:00 05/20/17 20:47 Toprol Xl Tab* PO 25 mg 2100 HODAN Administration Rivaroxaban 20 mg 05/18/17 21:00 05/20/17 20:47 Xarelto(*) PO 20 mg 2100 HODAN Administration Senna 2 tab 05/11/17 16:26 Senokot Tab* PO BEDTIME PRN CONSTIPATION Tamsulosin HCl 0.4 mg 05/11/17 21:00 05/20/17 20:47 Flomax Cap* PO 0.4 mg BEDTIME HODAN Administration Vital Signs: Vital Signs Temp Pulse Resp BP Pulse Ox 98.5 F 84 18 112/65 99 05/21/17 05:43 05/21/17 05:43 05/21/17 05:43 05/21/17 05:43 05/21/17 05:43 Lab Results: Laboratory Results - last 24 hr 05/20/17 05/20/17 05/20/17 11:51 16:31 20:31 POC Glucose (mg/dL) 123 H 87 79 05/21/17 07:34 POC Glucose (mg/dL) 95 Exam: PE: GEN: No acute distress. Alert and appropriate. LUNGS: clear bilaterally. CV: regular rate and rhythm (but has h/o atrial fibrillation) ABD: +BS, soft, non-tender and non-distended. EXT: No edema. Left foot dressed. Right heel dressing intact. Assessment/Plan: IMPRESSION/PLAN: 67yo man with diabetes mellitus s/p left small toe amputation complicated by infection and respiratory failure. 1. Respiratory Failure: Finished course of antibiotics. Tapered off O2. PT/OT 2. Left foot wound/heel ulcer: VAC discontinued. Dr. Rojas debrided left heel today and requests he not walk on left foot today and tomorrow but can WBAT. Will allow transfers for toileting and otherwise therapy will be in room/bed today. Dr. Rojas will also see next week and is considering a total contact cast. At the very least, expect he will f/u on Wednesday prior to discharge. continue PT/OT 3. Atrial fibrillation: Toprol/Xarelto 4. Elevated transaminases: probably from Cephalosporin exposure. f/u labs weekly. 5. DM: stable. continue SSI 6. HTN: Norvasc/Toprol/Cozaar 7. BPH: Flomax 8. DVT prophylaxis: On Xarelto 9. Advanced directives: Full code 10. Estimated LOS: expect d/c on 05/28/17. 05/21/17 10:44
[2017-05-21] MEDS: Insulin LISPRO* 1 UNITS UNIT SUBCUT SCH ×4 (11:07→20:48)
[2017-05-21] MEDS: Collagenase 250 MG/GM OINT* 30 GM TOPICAL SCH (11:09)
[2017-05-21] MEDS: Atorvastatin* 20 MG TAB PO SCH (17:02)
[2017-05-21] MEDS: Rivaroxaban TAB(*) 20 MG TAB PO SCH (20:47)
[2017-05-21] MEDS: Losartan TAB* 25 MG PO SCH (20:48)
[2017-05-21] MEDS: Citalopram TAB* 20 MG PO SCH (20:48)
[2017-05-21] MEDS: Tamsulosin CAP* 0.4 MG PO SCH (20:48)
[2017-05-21] MEDS: Metoprolol Succinate XL TAB* 25 MG PO SCH (20:48)
[2017-05-21] MEDS: diPHENhydraMINE PO* 25 MG PO PRN (22:58)
[2017-05-22] MEDS: Insulin LISPRO* 1 UNITS UNIT SUBCUT SCH ×4 (08:14→20:15)
[2017-05-22] MEDS: Docusate CAP* 100 MG PO SCH ×2 (09:09→20:12)
[2017-05-22] MEDS: Metoprolol Succinate XL TAB* 100 MG PO SCH (09:10)
[2017-05-22] MEDS: Folic Acid TAB* 1 MG PO SCH (09:10)
[2017-05-22] MEDS: amLODIPine TAB* 5 MG PO SCH (09:10)
[2017-05-22] MEDS: Collagenase 250 MG/GM OINT* 30 GM TOPICAL SCH (09:18)
--- NOTE | 2017-05-22 10:22 | PN ---
Progress Note Date of Service: 05/22/17 Note: JARETT COOPER was visited. Therapy and nursing notes read and reviewed. No chest pain, shortness of breath or abdominal pain. Dressings changed by nursing this morning. He is feeling optimistic about healing the wounds and avoiding amputation. Current Medications: Active Medications Generic Name Dose Route Start Last Admin Trade Name Freq PRN Reason Stop Dose Admin Acetaminophen 650 mg 05/11/17 16:26 05/17/17 11:53 Tylenol Tab* PO 650 mg Q6H PRN Administration FEVER/PAIN Amlodipine Besylate 10 mg 05/12/17 09:00 05/22/17 09:10 Norvasc Tab* PO 10 mg DAILY HODAN Administration Atorvastatin Calcium 20 mg 05/11/17 17:00 05/21/17 17:02 Lipitor* PO 20 mg 1700 HODAN Administration Bisacodyl 10 mg 05/11/17 16:26 Dulcolax Supp* [place] DAILY PRN CONSTIPATION Citalopram Hydrobromide 20 mg 05/11/17 21:00 05/21/17 20:48 Celexa Tab* PO 20 mg BEDTIME HODAN Administration Collagenase 1 applic 05/21/17 09:00 05/22/17 09:18 Santyl 250 Mg/Gm Oint* TOPICAL 1 dose Q48H HODAN Administration Dextrose 12.5 gm 05/11/17 16:41 D50w Syringe 50 Ml* IV PUSH .FOR FS < 60 - SS PRN FS < 60 Diphenhydramine HCl 25 mg 05/12/17 18:07 05/21/17 22:58 Benadryl Po* PO 25 mg BEDTIME PRN Administration INSOMNIA Docusate Sodium 100 mg 05/11/17 21:00 05/22/17 09:09 Colace Cap* PO Not Given BID HODAN Folic Acid 1 mg 05/12/17 09:00 05/22/17 09:10 Folvite Tab* PO 1 mg DAILY HODAN Administration Insulin Human Lispro 0 - 15 units 05/11/17 21:00 05/22/17 08:14 Humalog* SUBCUT Not Given ACHS [facility] Protocol Losartan Potassium 100 mg 05/11/17 21:00 05/21/17 20:48 Cozaar Tab* PO 100 mg 2100 HODAN Administration Metoprolol Succinate 100 mg 05/12/17 09:00 02/10/18 09:10 Toprol Xl Tab* PO 100 mg DAILY HODAN Administration Metoprolol Succinate 25 mg 05/11/17 21:00 05/21/17 20:48 Toprol Xl Tab* PO 25 mg 2100 HODAN Administration Rivaroxaban 20 mg 05/18/17 21:00 05/21/17 20:47 Xarelto(*) PO 20 mg 2100 HODAN Administration Senna 2 tab 05/11/17 16:26 Senokot Tab* PO BEDTIME PRN CONSTIPATION Tamsulosin HCl 0.4 mg 05/11/17 21:00 05/21/17 20:48 Flomax Cap* PO 0.4 mg BEDTIME HODAN Administration Vital Signs: Vital Signs Temp Pulse Resp BP Pulse Ox 99.0 F 87 18 120/63 94 05/22/17 06:33 05/22/17 06:33 05/22/17 06:33 05/22/17 06:33 05/22/17 09:34 Lab Results: Laboratory Results - last 24 hr 05/21/17 05/21/17 05/21/17 12:01 16:36 20:19 POC Glucose (mg/dL) 100 128 H 155 H 05/22/17 08:05 POC Glucose (mg/dL) 112 H Exam: PE: GEN: No acute distress. Alert and appropriate. LUNGS: clear bilaterally. CV: regular rate and rhythm (but has h/o atrial fibrillation) ABD: +BS, soft, non-tender and non-distended. EXT: No edema. Left foot dressed. Right heel dressing intact. Assessment/Plan: IMPRESSION/PLAN: 67yo man with diabetes mellitus s/p left small toe amputation complicated by infection and respiratory failure. 1. Respiratory Failure: Finished course of antibiotics. Tapered off O2. PT/OT 2. Left foot wound/heel ulcer: VAC discontinued. Dr. Rojas debrided left heel 05/21/17 and requests he not walk on left foot yesterday and today but can WBAT. Allowed transfers for toileting. Resume regular therapy Wednesday. Dr. Rojas will also see next week and is considering a total contact cast. He has an appt in the wound clinic before d/c on Wednesday morning. continue PT/OT 3. Atrial fibrillation: Toprol/Xarelto 4. Elevated transaminases: probably from Cephalosporin exposure. f/u labs weekly. 5. DM: stable. continue SSI 6. HTN: Norvasc/Toprol/Cozaar 7. BPH: Flomax 8. DVT prophylaxis: On Xarelto 9. Advanced directives: Full code 10. Estimated LOS: expect d/c on 05/28/17. 05/22/17 10:19
[2017-05-22] MEDS: Atorvastatin* 20 MG TAB PO SCH (16:42)
[2017-05-22] MEDS: Tamsulosin CAP* 0.4 MG PO SCH (20:07)
[2017-05-22] MEDS: Losartan TAB* 25 MG PO SCH (20:08)
[2017-05-22] MEDS: Metoprolol Succinate XL TAB* 25 MG PO SCH (20:08)
[2017-05-22] MEDS: Citalopram TAB* 20 MG PO SCH (20:09)
[2017-05-22] MEDS: Rivaroxaban TAB(*) 20 MG TAB PO SCH (20:09)
[2017-05-22] MEDS: diPHENhydraMINE PO* 25 MG PO PRN (23:10)
[2017-05-23] MEDS: Insulin LISPRO* 1 UNITS UNIT SUBCUT SCH ×4 (07:59→20:12)
[2017-05-23] MEDS: Metoprolol Succinate XL TAB* 100 MG PO SCH (08:57)
[2017-05-23] MEDS: amLODIPine TAB* 5 MG PO SCH (08:57)
[2017-05-23] MEDS: Folic Acid TAB* 1 MG PO SCH (08:57)
[2017-05-23] MEDS: Docusate CAP* 100 MG PO SCH ×2 (08:58→20:12)
[2017-05-23] MEDS: Collagenase 250 MG/GM OINT* 30 GM TOPICAL SCH (08:58)
--- NOTE | 2017-05-23 11:11 | PN ---
Progress Note Date of Service: 05/23/17 Note: JARETT COOPER was visited. Nursing notes read and reviewed (no therapy yesterday). He feels tired and sleepy today, but has been inactive the last 2 days since left heel debridement by Dr. Rojas. He denies any chest pain, shortness of breath or abdominal pain. No nausea. He is eating and drinking. Current Medications: Active Medications Generic Name Dose Route Start Last Admin Trade Name Freq PRN Reason Stop Dose Admin Acetaminophen 650 mg 05/11/17 16:26 05/17/17 11:53 Tylenol Tab* PO 650 mg Q6H PRN Administration FEVER/PAIN Amlodipine Besylate 10 mg 05/12/17 09:00 05/23/17 08:57 Norvasc Tab* PO 10 mg DAILY HODAN Administration Atorvastatin Calcium 20 mg 05/11/17 17:00 05/22/17 16:42 Lipitor* PO 20 mg 1700 HODAN Administration Bisacodyl 10 mg 05/11/17 16:26 Dulcolax Supp* [place] DAILY PRN CONSTIPATION Citalopram Hydrobromide 20 mg 05/11/17 21:00 05/22/17 20:09 Celexa Tab* PO 20 mg BEDTIME HODAN Administration Collagenase 1 applic 05/21/17 09:00 05/23/17 08:58 Santyl 250 Mg/Gm Oint* TOPICAL 1 dose Q48H HODAN Administration Dextrose 12.5 gm 05/11/17 16:41 D50w Syringe 50 Ml* IV PUSH .FOR FS < 60 - SS PRN FS < 60 Diphenhydramine HCl 25 mg 05/12/17 18:07 05/22/17 23:10 Benadryl Po* PO 25 mg BEDTIME PRN Administration INSOMNIA Docusate Sodium 100 mg 05/11/17 21:00 05/23/17 08:58 Colace Cap* PO Not Given BID HODAN Folic Acid 1 mg 05/12/17 09:00 05/23/17 08:57 Folvite Tab* PO 1 mg DAILY HODAN Administration Insulin Human Lispro 0 - 15 units 05/11/17 21:00 05/23/17 07:59 Humalog* SUBCUT Not Given ACHS HODAN Protocol Losartan Potassium 100 mg 05/11/17 21:00 05/22/17 20:08 Cozaar Tab* PO 100 mg 2100 HODAN Administration Metoprolol Succinate 100 mg 05/12/17 09:00 05/23/17 08:57 Toprol Xl Tab* PO 100 mg DAILY HODAN Administration Metoprolol Succinate 25 mg 05/11/17 21:00 05/22/17 20:08 Toprol Xl Tab* PO 25 mg 2100 HODAN Administration Rivaroxaban 20 mg 05/18/17 21:00 05/22/17 20:09 Xarelto(*) PO 20 mg 2100 HODAN Administration Senna 2 tab 05/11/17 16:26 Senokot Tab* PO BEDTIME PRN CONSTIPATION Tamsulosin HCl 0.4 mg 05/11/17 21:00 05/22/17 20:07 Flomax Cap* PO 0.4 mg BEDTIME HODAN Administration Vital Signs: Vital Signs Temp Pulse Resp BP Pulse Ox 98.8 F 94 18 115/68 91 05/23/17 05:34 05/23/17 05:34 05/23/17 05:34 05/23/17 05:34 05/23/17 09:03 Lab Results: Laboratory Results - last 24 hr 05/22/17 05/22/17 05/22/17 12:00 16:42 20:06 POC Glucose (mg/dL) 84 90 129 H 05/23/17 07:48 POC Glucose (mg/dL) 109 H Exam: PE: GEN: No acute distress. Alert and appropriate. LUNGS: clear bilaterally. CV: regular rate and rhythm (but has h/o atrial fibrillation) ABD: +BS, soft, non-tender and non-distended. EXT: No edema. Left foot dressed with mild serous drainage at heel. Right heel dressing intact. Assessment/Plan: IMPRESSION/PLAN: 67yo man with diabetes mellitus s/p left small toe amputation complicated by infection and respiratory failure. 1. Respiratory Failure: Finished course of antibiotics. Tapered off O2. Incentive spirometer. PT/OT 2. Left foot wound/heel ulcer: VAC discontinued. Dr. Rojas debrided left heel 05/21/17 and requested he not walk on left foot 05/21-05/22/17. Allowed transfers for toileting. Resume regular therapy Wednesday WBAT. Dr. Rojas will also see next week and is considering a total contact cast. He has an appt in the wound clinic before d/c on Wednesday morning. continue PT/OT 3. Atrial fibrillation: Toprol/Xarelto 4. Elevated transaminases: probably from Cephalosporin exposure. f/u labs weekly. 5. DM: stable. continue SSI 6. HTN: Norvasc/Toprol/Cozaar 7. BPH: Flomax 8. DVT prophylaxis: On Xarelto 9. Advanced directives: Full code 10. Estimated LOS: expect d/c on 05/28/17. 05/23/17 11:08
[2017-05-23] MEDS: Atorvastatin* 20 MG TAB PO SCH (17:08)
[2017-05-23] MEDS: Metoprolol Succinate XL TAB* 25 MG PO SCH (20:06)
[2017-05-23] MEDS: Rivaroxaban TAB(*) 20 MG TAB PO SCH (20:06)
[2017-05-23] MEDS: Losartan TAB* 25 MG PO SCH (20:06)
[2017-05-23] MEDS: Citalopram TAB* 20 MG PO SCH (20:06)
[2017-05-23] MEDS: Tamsulosin CAP* 0.4 MG PO SCH (20:06)
[2017-05-23] MEDS: diPHENhydraMINE PO* 25 MG PO PRN (23:06)
--- NOTE | 2017-05-24 03:55 | OP ---
CC: [facility], Wound Center DATE OF OPERATION: 05/21/17 - ROOM #349 DATE OF : 46 SURGEON: Dr. Rojas. ELECTRIC DETECTOR OPERATOR: None. ANESTHESIA: None. PRE-OP DIAGNOSIS: Unstageable pressure ulcer of the left heel. POST-OP DIAGNOSIS: Stage 3 pressure ulcer of the left heel. OPERATIVE PROCEDURE: Excisional debridement of left heel ulcer. SPECIMENS: None. INDICATIONS: Mr. 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 At the patient's last visit to the Wound Center the patient was noted to have large pressure ulcer that was unstageable, to the heel. The patient had other issues that lead to an admission. The patient has been followed while admitted and he has been undergoing a negative pressure wound therapy treatment to the amputation site. To the heel ulcer, the patient has been having Santyl dressing regularly placed. He has been on antibiotics, he continues with rehab, with weightbearing as tolerated. I have been following the heel ulcer as the Santyl has lifted the Eschar off of the adjacent skin. The adjacent skin has remained uninflamed and I discussed with the patient the need to unroof this ulceration and better evaluate the wound for additional wound care. We also talked about the possibility of needing skin graft and we also talked about the possibility of amputation if this ulcer worsens. I outlined the details of the procedure, going over the risks, benefits, and alternatives. We spoke of the possible complications which included, but not limited to, bleeding, infection, need for additional debridement, need for additional procedures, and even the possibility of a nonhealing ulcer and the need for amputation. The patient signed consent after his questions were answered. PROCEDURE IN DETAIL: The area was prepped Betadine. With a scalpel, we incised the perimeter that was already lifting off the adjacent intact skin and staying in the necrotic skin interface we lifted off the eschar, taking this off of the deeper tissue which consisted of subcutaneous fat and muscle. Once the Eschar was completely lifted off, I performed coarse debridement with gauze. Bleeding was minimal. The wound, post procedure, measured 5 x 4.2 cm x 0.3 cm deep. It had pink granulation tissue. There was no exposed bone, there was no tunneling. Santyl dressing was reapplied, followed by a gauze. Plan will be for nonweightbearing for the next 48 hours. I will reevaluate him early next week with possibility of placement of a total contact cast. We will try to make an appointment for the Wound Center visit next Wednesday. The patient is aware of this, as is the rehab team. [id number]/[facility] #: [id number] JASMEET
[2017-05-24] MEDS: Insulin LISPRO* 1 UNITS UNIT SUBCUT SCH ×4 (08:27→20:29)
[2017-05-24] MEDS: amLODIPine TAB* 5 MG PO SCH (08:28)
[2017-05-24] MEDS: Folic Acid TAB* 1 MG PO SCH (08:28)
[2017-05-24] MEDS: Docusate CAP* 100 MG PO SCH ×2 (08:28→21:05)
[2017-05-24] MEDS: Metoprolol Succinate XL TAB* 100 MG PO SCH (08:28)
--- NOTE | 2017-05-24 16:28 | PN ---
Progress Note Date of Service: 05/24/17 Note: JARETT COOPER was visited. Therapy notes read and reviewed. His got dizzy when he tried to get up this morning. He had his legs elevated for most of the weekend. He is on a lot of blood pressure medicines. Will cut back on medicines. Will check CBC in am. Current Medications: Active Medications Generic Name Dose Route Start Last Admin Trade Name Freq PRN Reason Stop Dose Admin Acetaminophen 650 mg 05/11/17 16:26 05/17/17 11:53 Tylenol Tab* PO 650 mg Q6H PRN Administration FEVER/PAIN Amlodipine Besylate 2.5 mg 05/24/17 16:21 Norvasc Tab* PO DAILY HODAN Atorvastatin Calcium 20 mg 05/11/17 17:00 05/23/17 17:08 Lipitor* PO 20 mg 1700 HODAN Administration Bisacodyl 10 mg 05/11/17 16:26 Dulcolax Supp* [place] DAILY PRN CONSTIPATION Citalopram Hydrobromide 20 mg 05/11/17 21:00 05/23/17 20:06 Celexa Tab* PO 20 mg BEDTIME HODAN Administration Collagenase 1 applic 05/21/17 09:00 05/23/17 08:58 Santyl 250 Mg/Gm Oint* TOPICAL 1 dose Q48H HODAN Administration Dextrose 12.5 gm 05/11/17 16:41 D50w Syringe 50 Ml* IV PUSH .FOR FS < 60 - SS PRN FS < 60 Diphenhydramine HCl 25 mg 05/12/17 18:07 05/23/17 23:06 Benadryl Po* PO 25 mg BEDTIME PRN Administration INSOMNIA Docusate Sodium 100 mg 05/11/17 21:00 05/24/17 08:28 Colace Cap* PO 100 mg BID HODAN Administration Folic Acid 1 mg 05/12/17 09:00 05/24/17 08:28 Folvite Tab* PO 1 mg DAILY HODAN Administration Insulin Human Lispro 0 - 15 units 05/11/17 21:00 05/24/17 12:16 Humalog* SUBCUT Not Given ACHS [facility] Protocol Losartan Potassium 100 mg 05/11/17 21:00 05/23/17 20:06 Cozaar Tab* PO 100 mg 2100 HODAN Administration Metoprolol Succinate 100 mg 05/12/17 09:00 05/24/17 08:28 Toprol Xl Tab* PO 100 mg DAILY HODAN Administration Rivaroxaban 20 mg 05/18/17 21:00 05/23/17 20:06 Xarelto(*) PO 20 mg 2100 HODAN Administration Senna 2 tab 05/11/17 16:26 Senokot Tab* PO BEDTIME PRN CONSTIPATION Tamsulosin HCl 0.4 mg 05/11/17 21:00 05/23/17 20:06 Flomax Cap* PO 0.4 mg BEDTIME HODAN Administration Vital Signs: Vital Signs Temp Pulse Resp BP Pulse Ox 98.2 F 82 18 87/55 97 05/24/17 15:02 05/24/17 15:02 05/24/17 15:02 05/24/17 15:02 05/24/17 15:22 Lab Results: Laboratory Results - last 24 hr 05/23/17 05/23/17 05/24/17 16:47 20:05 08:05 POC Glucose (mg/dL) 93 124 H 113 H 05/24/17 05/24/17 10:23 12:11 POC Glucose (mg/dL) 176 H 100 Exam: LUNGS: Clear HEART: Reg rhythm ABDOMEN: Soft, +BS EXTREMITIES: bandages clean. Assessment/Plan: 1. Respiratory Failure: Finished course of antibiotics. Tapered off O2. Incentive spirometer. PT/OT 2. Left foot wound/heel ulcer: VAC discontinued. Dr. Rojas debrided left heel 05/21/17. WBAT. Dr. Rojas will also see Wednesday and is considering a total contact cast. He has an appt in the wound clinic before d/c on Wednesday morning. continue PT/OT 3. Atrial fibrillation: Toprol/Xarelto 4. Elevated transaminases: probably from Cephalosporin exposure. f/u labs weekly. 5. DM: stable. continue SSI 6. HTN: Norvasc/Toprol/Cozaar. Given the drop in BP, will hold tonight's Toprol and cut Norvasc. Check CBC 7. BPH: Flomax 8. DVT prophylaxis: On Xarelto 9. Advanced directives: Full code 10. Estimated LOS: expect d/c on 05/28/17. 05/24/17 16:29
[2017-05-24] MEDS: Atorvastatin* 20 MG TAB PO SCH (17:01)
[2017-05-24] MEDS: Tamsulosin CAP* 0.4 MG PO SCH (21:05)
[2017-05-24] MEDS: Citalopram TAB* 20 MG PO SCH (21:05)
[2017-05-24] MEDS: Losartan TAB* 25 MG PO SCH (21:05)
[2017-05-24] MEDS: Rivaroxaban TAB(*) 20 MG TAB PO SCH (21:05)
[2017-05-24] MEDS: diPHENhydraMINE PO* 25 MG PO PRN (23:26)
[2017-05-25 06:31] LABS: ABS Basophils 0 10^3/ul (0-0.2); ABS Eosinophils 0.6 10^3/ul (0-0.6); ABS Lymphocytes 2.2 10^3/ul (1.0-4.8); ABS Monocytes 1.2 10^3/ul (0-0.8); ABS Neutrophils 5.3 10^3/ul (1.5-7.7); ABS Nucleated RBC 0 10^3/ul; Eosinophil % 6.4 % (0-6); Hematocrit 39 % (42-52); Hemoglobin 13.1 g/dl (14.0-18.0); Lymphocyte % 23.4 % (25-47); Mean Corpuscular HGB Conc 34 g/dl (31-36); Mean Corpuscular Hemoglobin 33 pg (27-31); Mean Corpuscular Volume 97 fL (80-94); Mean Platelet Volume 9 um3 (7.4-10.4); Nucleated Red Blood Cells % 0.1; Platelet Count 251 10^3/ul (150-450); Red Cell Distribution Width 15 % (10.5-15); White Blood Count 9.3 10^3/ul (3.5-10.8)
[2017-05-25] MEDS: Insulin LISPRO* 1 UNITS UNIT SUBCUT SCH ×4 (08:00→20:17)
[2017-05-25] MEDS: amLODIPine TAB* 5 MG PO SCH (08:44)
[2017-05-25] MEDS: Folic Acid TAB* 1 MG PO SCH (08:44)
[2017-05-25] MEDS: Docusate CAP* 100 MG PO SCH ×2 (08:44→20:46)
[2017-05-25] MEDS: Metoprolol Succinate XL TAB* 100 MG PO SCH (08:44)
--- NOTE | 2017-05-25 12:24 | PMRUTEAM ---
PMRU: Goals Current Status: Nursing: Current Status Skin Deviations [Right Other Buttocks] Skin Deviations [Left Foot] Incision Skin Deviations [Right Lower Abrasion Posterior Leg] Skin Deviations [Right Heel] Pressure Ulcer Skin Deviations [Left Heel] Pressure Ulcer Skin Deviation Description [ discolaration Right Buttocks] Skin Deviation Description [ toe amp site Left Foot] Skin Deviation Description [ drsg in place Right Lower Posterior Leg] Skin Deviation Description [ Mepilex in place Right Heel] Skin Deviation Description [ debrideenmt site Left Heel] Drain Type [Left Foot] Wound Vac Wound Stage [Right Buttocks] I Wound Stage [Right Heel] II Wound Stage [Left Heel] Unstageable Bladder Current Status Using Urinal, helper positions/holds/empties urinal. Bowel Current Status occasionally incontinent Last BM 05/17/17 Nutrition Current Status excellent Medication Current Status supervision Physical Therapy: Current Status Bed Mobility Assistance Supervision Transfer Moblility Assistance Supervision,Contact Guard Assist Transfer/Bed Mobility Rolling Walker Recommended Devices Transfer Mobility Comment Pt. is able to perform a SPT using a 2 w/w cg to S x 1. Ambulation Assistance Supervision,Contact Guard Assist Ambulation Assistive Devices Rolling Walker Number of Feet Patient 60' x 2 Ambulated Ambulation Comment Pt. presents a slow controlled reciiprocal type gait pattern Stairs Assistance Not Tested Stairs Recommended Devices Two Rails Number of Stairs Flight Curb Not Tested Wheelchair Distance (ft) 50 Occupational Therapy: Current Status Upper Body Dressing Supervision Upper Body Dressing Progress setupA Lower Body Dressing Min Assist Lower Body Dressing Progress to don post op shoes Bathing Mod Assist Bathing Progress rear hygiene, lower legs Toileting Min Assist,Mod Assist Toileting Progress rear hygiene Toilet Transfer Supervision Shower Transfer Total Assist Shower Transfer Progress roll in in w/c Eating Independent Rec Therapy: Current Status Summary of Assessment and RT assessment complete and pt. is aware of RT Clinical Impression services. Pt. has leisure material in his room and has been engaged in leisure visits. Pt. is pleasant and cooperative. Treatment Goals Pt. will engage in leisure activities while on the unit. Treatment Plan Provide RT services and encourage involvement. Social Work: Current Status Discharge Plan return home with home care svs and family support Potential for Family Training pt's is attentive and involved Anticipated Discharge Home Destination Discharge With home care svs and family support Nutrition: Current Status Monitoring pt continues to eat very well on consistent carb diet. FS generally ranging 100s-130s, with occasional higher results (155 - 05/21, 176 - 05/24), so under good control. Historically, A1c has been good (5.5%). Glucerna Shakes offered 2x/day btwn meals as additional nutrition for wound healing. Wound vac to left foot d/c'd; wound debrided 05/21 (Dr Rojas) and to be followed at Wound Clinic after tentative d/c 05/28. Other skin is intact at low risk for breakdown. Bowel are regulated w/daily BMs. Goals: Physical Therapy: Initial Goals Bed Mobility Assistance Independent Transfer Mobility Assistance Independent Transfer/Bed Mobility Rolling Walker Recommended Devices Ambulation Independent Ambulation Recommended Devices Rolling Walker Ambulation Distance 150 Wheelchair Propulsion Ability Independent Wheelchair Distance (ft) 150 Stairs Assistance Independent Stair Recommended Devices Two Rails Number of Stairs 12 Physical Therapy: Updated Goals Bed Mobility Assistance Independent Transfer Mobility Assistance Independent Transfer/Bed Mobility Rolling Walker Recommended Devices Ambulation Assistance Independent Ambulation Assistive Devices Rolling Walker Ambulation Distance (ft) 150 Stairs Assistance Independent Stairs Recommended Devices Two Rails Number of Stairs 12 Occupational Therapy: Initial Goals Goals to be Completed in (Days 2 weeks ) Upper Body Bathing Routine Independent Lower Body Bathing Routine Modified Independent with Upper Body Dressing Routine Independent Lower Body Dressing Routine Modified Independent with Toilet Hygeine and Clothing Modified Independent with Management Routine Toilet Transfer Routine Modified Independent with Tub Transfer Routine Modified Independent with Functional Transfers for ADL Modified Independent with Grooming Routine Independent Feeding Routine Independent Nursing: Goals Bladder Goal independent Bowel Goal continent, independent Nutrition Goal 100% all meals Medication Goal independent Nutrition: Goals Intervention Goals 1. Adequate PO intake to maintain lean body mass w /o promoting undesired weight gain 2. Promote wound healing - high protein meals/ snacks as able 3. Adequate glycemic control per inpatient parameters 4. Achieve regularity of BM w/o constipation (or diarrhea) Social Work: Goals Discharge Plan return home with home care svs and family support Potential for Family Training pt's is attentive and involved Anticipated Discharge Home Destination Discharge With home care svs and family support Care Plan: Care Plan ADL's - Improve/Maintain Start: 05/11/17 22:48 Freq: DAILY Status: Active Target: Protocol: Activity Type Activity Date Activity User E-Sign Co-Sign Detail Recorded Client Recorded Date Recorded By Document 05/25/17 10:46 [id number] 05/25/17 10:46 [id number] 05/25/17 10:46 PMRU Outcome: ADL's/ADL Transfers Orders/Interventions Occupational Therapy Evaluation & Treatment Communication Tool in Patient Room Device Yes Patient to receive OT 5x/wk for 60-120 Therex min/day Self Care Management Group Therapy UE/LE ADL's with Assist Yes: Chava ADL Transfers with Assist Yes: Chava Toileting: Transfers,Clothing Management Yes: Chava ,Hygeine w/Assist Progression Toward Outcome/Goals Progressing Outcome/Goals Met Pt participated well in OT treatment session with increased time/ assistance for some tasks 2* dizziness with standing when attempting to complete toileting. Nursing in room to assess vitals, pt with increased independence able to thread Michael LEs into pants this date . Cardiovascular- Improve/Maintain Start: 05/11/17 22:48 Freq: DAILY Status: Active Target: Protocol: Activity Type Activity Date Activity User E-Sign Co-Sign Detail Recorded Client Recorded Date Recorded By Document 05/25/17 00:09 [id number] 05/25/17 00:09 [id number] 05/25/17 00:09 PMRU Outcome: Cardiovascular Vital Signs q Shift for 48hrs Then BID Yes Daily Weight Ordered No Current Cardiovascular Outcome/Goal Maintain/ Achieve Baseline HR, BP , Perfusion Maintain/ Achieve Hemodynamic Stability Free of Abnormal Cardiac Symptoms Progression Toward Outcome/Goal Progressing DVT Prophylaxis- Improve/Maintain Start: 05/11/17 22:48 Freq: DAILY Status: Active Target: Protocol: Activity Type Activity Date Activity User E-Sign Co-Sign Detail Recorded Client Recorded Date Recorded By Document 05/25/17 00:09 [id number] 05/25/17 00:09 [id number] 05/25/17 00:09 PMRU Outcome: DVT Prophylaxis Outcome/Goals Remains Free of DVT TEDS Stockings on Every AM, Off at HS Progression Toward Outcome/Goals Progressing Discharge Planning - Improve/Maintain Start: 05/11/17 22:48 Freq: DAILY Status: Active Target: Protocol: Activity Type Activity Date Activity User E-Sign Co-Sign Detail Recorded Client Recorded Date Recorded By Document 05/25/17 00:09 [id number] 05/25/17 00:09 [id number] 05/25/17 00:09 PMRU Outcome: Discharge Planning Identify Patient Needs yes Update Patient Family No Outcome/Goals Demonstrates Understanding of Discharge Plan Progression Toward Outcome/Goals Progressing Metabolic Status- Improve/Maintain Start: 05/11/17 22:48 Freq: DAILY Status: Complete Target: Protocol: Activity Type Activity Date Activity User E-Sign Co-Sign Detail Recorded Client Recorded Date Recorded By Document 05/21/17 16:08 [id number] [id number] 05/21/17 16:09 [id number] 05/21/17 16:08 PMRU Outcome: Metabolic Status Have Fingersticks Been Ordered Yes Fingerstick Order Frequency AC & HS Outcome/Goals Maintain/ Improve Metabolic Status Demonstrate Knowledge of Prevention/ Treatment of Metabolic Imbalances Outcome/Goals Met Maintain/ Improve Metabolic Status Demonstrate Knowledge of Prevention/ Treatment of Metabolic Imbalances Mobility- Improve/Maintain Start: 05/11/17 22:48 Freq: DAILY Status: Active Target: Protocol: Activity Type Activity Date Activity User E-Sign Co-Sign Detail Recorded Client Recorded Date Recorded By Document 05/19/17 12:34 [id number] 05/19/17 12:34 [id number] 05/19/17 12:34 PMRU Outcome: Mobility Physical Therapy Evaluation and Yes Treatment Activity OOB with Assistance Yes Device Yes Assistance Yes Patient to be seen 5x/wk for 60-120 min/ Therex day for: Mobility Training Gait Training W/C Mobility Balance Progression Toward Outcome/Goals Progressing Outcome/Goals Met Maintain/ Achieve Baseline Mobility Status Improve Mobility Status Demonstrates Proper Use of Assistive Devices Free from Complications of Immobility Bed Mobility Yes: independent Transfers Yes: independent with slide board or RW Gait x ft Yes: independent with rolling walker 150' W/C Mobility x ft Yes: independent 150 ' Up/Down Stairs Yes: independent up/ down 12 with 2 rails. Pain/Comfort- Improve/Maintain Start: 05/11/17 22:48 Freq: DAILY Status: Complete Target: Protocol: Activity Type Activity Date Activity User E-Sign Co-Sign Detail Recorded Client Recorded Date Recorded By Document 05/21/17 16:08 [id number] 05/21/17 16:09 [id number] 05/21/17 16:08 PMRU Outcome: Pain/Comfort Outcome/Goals Demonstrates Knowledge and Use of Available Comfort Measures Achieves Acceptable Comfort/Pain Level as Determined by Patient/Condit Maintain Comfort Level Allowing Patient to Fully Participate in Rehab Outcome/Goals Met Demonstrates Knowledge and Use of Available Comfort Measures Achieves Acceptable Comfort/Pain Level as Determined by Patient/Condit Respiratory - Improve/Maintain Start: 05/11/17 22:48 Freq: DAILY Status: Active Target: Protocol: Activity Type Activity Date Activity User E-Sign Co-Sign Detail Recorded Client Recorded Date Recorded By Document 05/25/17 00:09 [id number] 05/25/17 00:09 [id number] 05/25/17 00:09 PMRU Outcome: Respiratory Does Patient Have a Trach No Outcome/Goals Maintain/ Improve O2 Sat per MD Order Maintain/ Improve Activity Tolerance Progression Toward Outcome/Goals Progressing Safety- Improve/Maintain Start: 05/11/17 22:48 Freq: DAILY Status: Active Target: Protocol: Activity Type Activity Date Activity User E-Sign Co-Sign Detail Recorded Client Recorded Date Recorded By Document 05/25/17 00:09 [id number] 05/25/17 00:09 [id number] 05/25/17 00:09 PMRU Outcome: Safety Outcome/Goals Remain Free of Injury or Harm Prevent Falls/ Injury Progression Toward Outcome/Goals Progressing Skin- Improve/Maintain Start: 05/11/17 22:48 Freq: DAILY Status: Active Target: Protocol: Activity Type Activity Date Activity User E-Sign Co-Sign Detail Recorded Client Recorded Date Recorded By Document 05/25/17 00:10 [id number] 05/25/17 00:10 [id number] 05/25/17 00:10 PMRU Outcome: Skin Skin Risk Level Medium Skin Orders Dressing Change Air Mattress Outcome/Goals Maintain/ Improve Skin Intergrity Surgical Incisions Healing Progression Toward Outcome/Goals Progressing Medicine Note: Length of Stay: 3 days Anticipated Discharge Destination: Home Tentative Discharge Date: 05/28/17 Discharged to: Home
[2017-05-25] MEDS: Analgesic BALM* 114 GM TOPICAL PRN ×2 (12:40→20:50)
[2017-05-25] MEDS: Collagenase 250 MG/GM OINT* 30 GM TOPICAL SCH (12:43)
[2017-05-25] MEDS: Methocarbamol TAB* 500 MG PO PRN ×2 (15:09→21:14)
--- NOTE | 2017-05-25 16:27 | PN ---
Progress Note Date of Service: 05/25/17 Note: JARETT COOPER was visited. Therapy notes read and reviewed. He was discussed in interdisciplinary team rounds. He woke up with some right sided neck pain. We will try a muscle relaxant and heat. BP dropped after BM on toilet this am. Cutting back on BP meds. Current Medications: Active Medications Generic Name Dose Route Start Last Admin Trade Name Freq PRN Reason Stop Dose Admin Acetaminophen 650 mg 05/11/17 16:26 05/17/17 11:53 Tylenol Tab* PO 650 mg Q6H PRN Administration FEVER/PAIN Amlodipine Besylate 2.5 mg 05/24/17 16:21 05/25/17 08:44 Norvasc Tab* PO 2.5 mg DAILY HODAN Administration Atorvastatin Calcium 20 mg 05/11/17 17:00 05/24/17 17:01 Lipitor* PO 20 mg 1700 HODAN Administration Bisacodyl 10 mg 05/11/17 16:26 Dulcolax Supp* [place] DAILY PRN CONSTIPATION Citalopram Hydrobromide 20 mg 05/11/17 21:00 05/24/17 21:05 Celexa Tab* PO 20 mg BEDTIME HODAN Administration Collagenase 1 applic 05/21/17 09:00 05/25/17 12:43 Santyl 250 Mg/Gm Oint* TOPICAL 1 dose Q48H HODAN Administration Dextrose 12.5 gm 05/11/17 16:41 D50w Syringe 50 Ml* IV PUSH .FOR FS < 60 - SS PRN FS < 60 Diphenhydramine HCl 25 mg 05/12/17 18:07 05/24/17 23:26 Benadryl Po* PO 25 mg BEDTIME PRN Administration INSOMNIA Docusate Sodium 100 mg 05/11/17 21:00 05/25/17 08:44 Colace Cap* PO 100 mg BID HODAN Administration Folic Acid 1 mg 05/12/17 09:00 05/25/17 08:44 Folvite Tab* PO 1 mg DAILY HODAN Administration Insulin Human Lispro 0 - 15 units 05/11/17 21:00 05/25/17 12:00 Humalog* SUBCUT Not Given ACHS HODAN Protocol Losartan Potassium 100 mg 05/11/17 21:00 05/24/17 21:05 Cozaar Tab* PO 100 mg 2100 HODAN Administration Methocarbamol 1,000 mg 05/25/17 14:34 05/25/17 15:09 Robaxin Tab* PO 1,000 mg Q6H PRN Administration SPASMS - NECK Metoprolol Succinate 100 mg 05/12/17 09:00 05/25/17 08:44 Toprol Xl Tab* PO 100 mg DAILY HODAN Administration Multi-Ingredient Liniment/Rub 1 applic 05/25/17 11:25 05/25/17 12:40 Yosi Sánchez* TOPICAL 1 applic TID PRN Administration SPASMS - NECK Rivaroxaban 20 mg 05/18/17 21:00 05/24/17 21:05 Xarelto(*) PO 20 mg 2100 HODAN Administration Senna 2 tab 05/11/17 16:26 Senokot Tab* PO BEDTIME PRN CONSTIPATION Tamsulosin HCl 0.4 mg 05/11/17 21:00 05/24/17 21:05 Flomax Cap* PO 0.4 mg BEDTIME HODAN Administration Vital Signs: Vital Signs Temp Pulse Resp BP Pulse Ox 97.5 F 94 19 121/63 96 05/25/17 15:19 05/25/17 15:19 05/25/17 15:19 05/25/17 15:19 05/25/17 15:19 Lab Results: Laboratory Results - last 24 hr 05/24/17 05/24/17 05/25/17 16:30 20:21 06:20 WBC 9.3 RBC 4.00 Hgb 13.1 L Hct 39 L MCV 97 H MCH 33 H MCHC 34 RDW 15 Plt Count 251 MPV 9 Neut % (Auto) 56.9 Lymph % (Auto) 23.4 L [place] % (Auto) 13.0 H Eos % (Auto) 6.4 H Baso % (Auto) 0.3 Absolute Neuts (auto) 5.3 Absolute Lymphs (auto) 2.2 Absolute Monos (auto) 1.2 H Absolute Eos (auto) 0.6 Absolute Basos (auto) 0 Absolute Nucleated RBC 0 Nucleated RBC % 0.1 POC Glucose (mg/dL) 101 H 108 H 05/25/17 05/25/17 08:04 12:06 WBC RBC Hgb Hct MCV MCH MCHC RDW Plt Count MPV Neut % (Auto) Lymph % (Auto) [place] % (Auto) Eos % (Auto) Baso % (Auto) Absolute Neuts (auto) Absolute Lymphs (auto) Absolute Monos (auto) Absolute Eos (auto) Absolute Basos (auto) Absolute Nucleated RBC Nucleated RBC % POC Glucose (mg/dL) 117 H 110 H Exam: LUNGS: Clear HEART: Reg rhythm ABDOMEN: Soft, +BS EXTREMITIES: bandages clean. Assessment/Plan: 1. Respiratory Failure: Finished course of antibiotics. Tapered off O2. Incentive spirometer. PT/OT 2. Left foot wound/heel ulcer: VAC discontinued. Dr. Rojas debrided left heel 05/21/17. WBAT. Dr. Rojas will also see Wednesday and is considering a total contact cast. He has an appt in the wound clinic before d/c on Wednesday morning. continue PT/OT 3. Atrial fibrillation: Toprol/Xarelto 4. Elevated transaminases: probably from Cephalosporin exposure. f/u labs tomorrow. 5. DM: stable. continue SSI 6. HTN: Norvasc/Toprol/Cozaar. Given the drop in BP, may d/c Norvasc. CBC ok 7. BPH: Flomax 8. DVT prophylaxis: On Xarelto 9. Advanced directives: Full code 10. Estimated LOS: expect d/c on 05/28/17. 05/25/17 16:27
[2017-05-25] MEDS: Atorvastatin* 20 MG TAB PO SCH (17:01)
[2017-05-25] MEDS: Tamsulosin CAP* 0.4 MG PO SCH (20:46)
[2017-05-25] MEDS: Rivaroxaban TAB(*) 20 MG TAB PO SCH (20:46)
[2017-05-25] MEDS: Citalopram TAB* 20 MG PO SCH (20:46)
[2017-05-25] MEDS: Losartan TAB* 25 MG PO SCH (20:46)
[2017-05-26] MEDS: Analgesic BALM* 114 GM TOPICAL PRN (00:19)
[2017-05-26] MEDS: Acetaminophen TAB* 325 MG PO PRN (02:23)
[2017-05-26] MEDS: Methocarbamol TAB* 500 MG PO PRN ×2 (03:30→23:30)
[2017-05-26 06:41] LABS: ABS Basophils 0.1 10^3/ul (0-0.2); ABS Eosinophils 0.3 10^3/ul (0-0.6); ABS Lymphocytes 1.8 10^3/ul (1.0-4.8); ABS Monocytes 1.4 10^3/ul (0-0.8); ABS Neutrophils 6.8 10^3/ul (1.5-7.7); ABS Nucleated RBC 0 10^3/ul; Eosinophil % 3.2 % (0-6); Hematocrit 39 % (42-52); Hemoglobin 13.2 g/dl (14.0-18.0); Mean Corpuscular HGB Conc 34 g/dl (31-36); Mean Corpuscular Hemoglobin 33 pg (27-31); Mean Corpuscular Volume 96 fL (80-94); Mean Platelet Volume 10 um3 (7.4-10.4); Nucleated Red Blood Cells % 0.1; Platelet Count 240 10^3/ul (150-450); Red Blood Count 4.03 10^6/ul (4.0-5.4); Red Cell Distribution Width 15 % (10.5-15); White Blood Count 10.4 10^3/ul (3.5-10.8)
[2017-05-26 06:50] LABS: EGFR Non-African American 93.2 (>60)
[2017-05-26] MEDS: Insulin LISPRO* 1 UNITS UNIT SUBCUT SCH ×4 (08:02→20:46)
[2017-05-26] MEDS: Docusate CAP* 100 MG PO SCH ×2 (08:03→20:46)
[2017-05-26] MEDS: Metoprolol Succinate XL TAB* 100 MG PO SCH (08:44)
[2017-05-26] MEDS: amLODIPine TAB* 5 MG PO SCH (08:44)
[2017-05-26] MEDS: Folic Acid TAB* 1 MG PO SCH (08:44)
--- NOTE | 2017-05-26 13:23 | PN ---
Progress Note Date of Service: 05/26/17 Note: JARETT COOPER was visited. Therapy notes read and reviewed. Neck was better today although still a little stiff. He was not dizzy this morning and worked with therapy. Current Medications: Active Medications Generic Name Dose Route Start Last Admin Trade Name Freq PRN Reason Stop Dose Admin Acetaminophen 650 mg 05/11/17 16:26 05/26/17 02:23 Tylenol Tab* PO 650 mg Q6H PRN Administration FEVER/PAIN Amlodipine Besylate 2.5 mg 05/24/17 16:21 05/26/17 08:44 Norvasc Tab* PO 2.5 mg DAILY HODAN Administration Atorvastatin Calcium 20 mg 05/11/17 17:00 05/25/17 17:01 Lipitor* PO 20 mg 1700 HODAN Administration Bisacodyl 10 mg 05/11/17 16:26 Dulcolax Supp* ND DAILY PRN CONSTIPATION Citalopram Hydrobromide 20 mg 05/11/17 21:00 05/25/17 20:46 Celexa Tab* PO 20 mg BEDTIME HODAN Administration Collagenase 1 applic 05/21/17 09:00 05/25/17 12:43 Santyl 250 Mg/Gm Oint* TOPICAL 1 dose Q48H HODAN Administration Dextrose 12.5 gm 05/11/17 16:41 D50w Syringe 50 Ml* IV PUSH .FOR FS < 60 - SS PRN FS < 60 Diphenhydramine HCl 25 mg 05/12/17 18:07 05/24/17 23:26 Benadryl Po* PO 25 mg BEDTIME PRN Administration INSOMNIA Docusate Sodium 100 mg 05/11/17 21:00 05/26/17 08:03 Colace Cap* PO Not Given BID HODAN Folic Acid 1 mg 05/12/17 09:00 05/26/17 08:44 Folvite Tab* PO 1 mg DAILY HODAN Administration Insulin Human Lispro 0 - 15 units 05/11/17 21:00 05/26/17 12:00 Humalog* SUBCUT Not Given ACHS [facility] Protocol Losartan Potassium 100 mg 05/11/17 21:00 05/25/17 20:46 Cozaar Tab* PO 100 mg 2100 HODAN Administration Methocarbamol 1,000 mg 05/25/17 14:34 05/26/17 03:30 Robaxin Tab* PO 1,000 mg Q6H PRN Administration SPASMS - NECK Metoprolol Succinate 100 mg 05/12/17 09:00 05/26/17 08:44 Toprol Xl Tab* PO 100 mg DAILY HODAN Administration Multi-Ingredient Liniment/Rub 1 applic 05/25/17 11:25 05/26/17 00:19 Yosi Sánchez* TOPICAL 1 applic TID PRN Administration SPASMS - NECK Rivaroxaban 20 mg 05/18/17 21:00 05/25/17 20:46 Xarelto(*) PO 20 mg 2100 HODAN Administration Senna 2 tab 05/11/17 16:26 Senokot Tab* PO BEDTIME PRN CONSTIPATION Tamsulosin HCl 0.4 mg 05/11/17 21:00 05/25/17 20:46 Flomax Cap* PO 0.4 mg BEDTIME HODAN Administration Vital Signs: Vital Signs Temp Pulse Resp BP Pulse Ox 98.7 F 90 18 124/74 93 05/26/17 04:58 05/26/17 04:58 05/26/17 06:05 05/26/17 04:58 05/26/17 04:58 Lab Results: Laboratory Results - last 24 hr 05/25/17 05/25/17 05/26/17 16:31 20:16 06:02 WBC RBC Hgb Hct MCV MCH MCHC RDW Plt Count MPV Neut % (Auto) Lymph % (Auto) Terrell % (Auto) Eos % (Auto) Baso % (Auto) Absolute Neuts (auto) Absolute Lymphs (auto) Absolute Monos (auto) Absolute Eos (auto) Absolute Basos (auto) Absolute Nucleated RBC Nucleated RBC % Sodium 135 Potassium 4.2 Chloride 104 Carbon Dioxide 25 Anion Gap 6 BUN 21 Creatinine 0.82 Est GFR ( Amer) 119.8 Est GFR (Non-Af Amer) 93.2 BUN/Creatinine Ratio 25.6 H Glucose 112 H POC Glucose (mg/dL) 140 H 130 H Calcium 9.3 Total Bilirubin 0.90 AST 27 ALT 39 Alkaline Phosphatase 184 H Total Protein 7.0 Albumin 3.1 L Globulin 3.9 Albumin/Globulin Ratio 0.8 L 05/26/17 05/26/17 05/26/17 06:09 07:41 12:04 WBC 10.4 RBC 4.03 Hgb 13.2 L Hct 39 L MCV 96 H MCH 33 H MCHC 34 RDW 15 Plt Count 240 MPV 10 Neut % (Auto) 65.4 Lymph % (Auto) 17.0 L Terrell % (Auto) 13.5 H Eos % (Auto) 3.2 Baso % (Auto) 0.9 Absolute Neuts (auto) 6.8 Absolute Lymphs (auto) 1.8 Absolute Monos (auto) 1.4 H Absolute Eos (auto) 0.3 Absolute Basos (auto) 0.1 Absolute Nucleated RBC 0 Nucleated RBC % 0.1 Sodium Potassium Chloride Carbon Dioxide Anion Gap BUN Creatinine Est GFR ( Amer) Est GFR (Non-Af Amer) BUN/Creatinine Ratio Glucose POC Glucose (mg/dL) 122 H 108 H Calcium Total Bilirubin AST ALT Alkaline Phosphatase Total Protein Albumin Globulin Albumin/Globulin Ratio Exam: LUNGS: Clear HEART: Reg rhythm ABDOMEN: Soft, +BS EXTREMITIES: bandages clean on RLE Assessment/Plan: 1. Respiratory Failure: Finished course of antibiotics. Tapered off O2. Incentive spirometer. PT/OT 2. Left foot wound/heel ulcer: VAC discontinued. Dr. Rojas debrided left heel 05/21/17. WBAT. Dr. Rojas will also see Wednesday and is considering a total contact cast. He has an appt in the wound clinic before d/c on Wednesday morning. continue PT/OT 3. Atrial fibrillation: Toprol/Xarelto 4. Elevated transaminases: Now normalized. 5. DM: stable. continue SSI 6. HTN: Norvasc/Toprol/Cozaar. Given the drop in BP, august d/c Norvasc. CBC ok 7. BPH: Flomax 8. DVT prophylaxis: On Xarelto 9. Advanced directives: Full code 10. Estimated LOS: expect d/c on 05/28/17. 05/26/17 13:24
[2017-05-26] MEDS: Atorvastatin* 20 MG TAB PO SCH (16:59)
[2017-05-26] MEDS: Tamsulosin CAP* 0.4 MG PO SCH (20:45)
[2017-05-26] MEDS: Losartan TAB* 25 MG PO SCH (20:45)
[2017-05-26] MEDS: Citalopram TAB* 20 MG PO SCH (20:45)
[2017-05-26] MEDS: Rivaroxaban TAB(*) 20 MG TAB PO SCH (20:46)
[2017-05-27] MEDS: Insulin LISPRO* 1 UNITS UNIT SUBCUT SCH ×4 (08:04→20:19)
[2017-05-27] MEDS: Metoprolol Succinate XL TAB* 100 MG PO SCH (08:05)
[2017-05-27] MEDS: amLODIPine TAB* 5 MG PO SCH (08:05)
[2017-05-27] MEDS: Docusate CAP* 100 MG PO SCH ×2 (08:05→19:47)
[2017-05-27] MEDS: Folic Acid TAB* 1 MG PO SCH (08:05)
[2017-05-27] MEDS: Collagenase 250 MG/GM OINT* 30 GM TOPICAL SCH (09:00)
[2017-05-27] MEDS: Atorvastatin* 20 MG TAB PO SCH (17:10)
--- NOTE | 2017-05-27 18:39 | PN ---
Progress Note Date of Service: 05/27/17 Note: JARETT COOPER was visited. Therapy notes read and reviewed. For discharge in am. He feels ready. Neck pain better. Current Medications: Active Medications Generic Name Dose Route Start Last Admin Trade Name Freq PRN Reason Stop Dose Admin Acetaminophen 650 mg 05/11/17 16:26 05/26/17 02:23 Tylenol Tab* PO 650 mg Q6H PRN Administration FEVER/PAIN Atorvastatin Calcium 20 mg 05/11/17 17:00 05/27/17 17:10 Lipitor* PO 20 mg 1700 HODAN Administration Bisacodyl 10 mg 05/11/17 16:26 Dulcolax Supp* MA DAILY PRN CONSTIPATION Citalopram Hydrobromide 20 mg 05/11/17 21:00 05/26/17 20:45 Celexa Tab* PO 20 mg BEDTIME HODAN Administration Collagenase 1 applic 05/21/17 09:00 05/27/17 09:00 Santyl 250 Mg/Gm Oint* TOPICAL 1 dose Q48H HODAN Administration Dextrose 12.5 gm 05/11/17 16:41 D50w Syringe 50 Ml* IV PUSH .FOR FS < 60 - SS PRN FS < 60 Diphenhydramine HCl 25 mg 05/12/17 18:07 05/24/17 23:26 Benadryl Po* PO 25 mg BEDTIME PRN Administration INSOMNIA Docusate Sodium 100 mg 05/11/17 21:00 05/27/17 08:05 Colace Cap* PO 100 mg BID HODAN Administration Folic Acid 1 mg 05/12/17 09:00 05/27/17 08:05 Folvite Tab* PO 1 mg DAILY HODAN Administration Insulin Human Lispro 0 - 15 units 05/11/17 21:00 05/27/17 16:36 Humalog* SUBCUT Not Given ACHS [facility] Protocol Losartan Potassium 100 mg 05/11/17 21:00 05/26/17 20:45 Cozaar Tab* PO 100 mg 2100 HODAN Administration Methocarbamol 1,000 mg 05/25/17 14:34 05/26/17 23:30 Robaxin Tab* PO 1,000 mg Q6H PRN Administration SPASMS - NECK Metoprolol Succinate 100 mg 05/12/17 09:00 05/27/17 08:05 Toprol Xl Tab* PO 100 mg DAILY HODAN Administration Multi-Ingredient Liniment/Rub 1 applic 05/25/17 11:25 05/26/17 00:19 Yosi Sánchez* TOPICAL 1 applic TID PRN Administration SPASMS - NECK Rivaroxaban 20 mg 05/18/17 21:00 05/26/17 20:46 Xarelto(*) PO 20 mg 2100 HODAN Administration Senna 2 tab 05/11/17 16:26 Senokot Tab* PO BEDTIME PRN CONSTIPATION Tamsulosin HCl 0.4 mg 05/11/17 21:00 05/26/17 20:45 Flomax Cap* PO 0.4 mg BEDTIME HODAN Administration Vital Signs: Vital Signs Temp Pulse Resp BP Pulse Ox 98.6 F 95 16 102/62 97 05/27/17 16:28 05/27/17 16:28 05/27/17 16:37 05/27/17 16:28 05/27/17 16:37 Lab Results: Laboratory Results - last 24 hr 05/26/17 05/27/17 05/27/17 20:26 08:03 12:05 POC Glucose (mg/dL) 99 84 97 05/27/17 16:19 POC Glucose (mg/dL) 82 Exam: LUNGS: Clear HEART: Reg rhythm ABDOMEN: Soft, +BS EXTREMITIES: bandages clean on LLE Assessment/Plan: 1. Respiratory Failure: Finished course of antibiotics. Tapered off O2. Incentive spirometer. PT/OT 2. Left foot wound/heel ulcer: VAC discontinued. Dr. Rojas debrided left heel 05/21/17. WBAT. Dr. Rojas will also see Wednesday and is considering a total contact cast. He has an appt in the wound clinic before d/c on Wednesday morning. continue PT/OT 3. Atrial fibrillation: Toprol/Xarelto 4. Elevated transaminases: Now normalized. 5. DM: stable. continue SSI 6. HTN: Norvasc/Toprol/Cozaar. Given the drop in BP, will d/c Norvasc. CBC ok 7. BPH: Flomax 8. DVT prophylaxis: On Xarelto 9. Alcohol Use: advised him not to drink for 3-4 weeks after discharge to let himself recover. 10. Advanced directives: Full code 11. Estimated LOS: expect d/c tomorrow. 05/27/17 18:39
[2017-05-27] MEDS: Methocarbamol TAB* 500 MG PO PRN (19:46)
[2017-05-27] MEDS: Tamsulosin CAP* 0.4 MG PO SCH (19:46)
[2017-05-27] MEDS: Losartan TAB* 25 MG PO SCH (19:46)
[2017-05-27] MEDS: Rivaroxaban TAB(*) 20 MG TAB PO SCH (19:47)
[2017-05-27] MEDS: Citalopram TAB* 20 MG PO SCH (19:47)
[2017-05-28] MEDS: Methocarbamol TAB* 500 MG PO PRN ×2 (02:53→08:03)
[2017-05-28] MEDS: Insulin LISPRO* 1 UNITS UNIT SUBCUT SCH ×2 (07:30→12:09)
[2017-05-28] MEDS: Docusate CAP* 100 MG PO SCH (08:02)
[2017-05-28] MEDS: Metoprolol Succinate XL TAB* 100 MG PO SCH (08:03)
[2017-05-28] MEDS: Analgesic BALM* 114 GM TOPICAL PRN (08:03)
[2017-05-28] MEDS: Folic Acid TAB* 1 MG PO SCH (08:03)
[2017-05-28 09:04] VITALS: BP 116/70
--- NOTE | 2017-05-29 15:34 | DS ---
CC: Dr. Ramez Akins * DISCHARGE SUMMARY: DATE OF ADMISSION: 05/11/17 DATE OF DISCHARGE: 05/28/17 DISCHARGE DIAGNOSES: 1. Respiratory failure. 2. Partial amputation, left foot. 3. Sepsis. 4. Pneumonia. 5. Atrial fibrillation. 6. Obesity. 7. Hypertension. 8. Hyperlipidemia. 9. Alcohol abuse. 10. Diabetes mellitus. HISTORY OF ILLNESS AND HOSPITAL COURSE: For complete history of events leading up to her rehab stay, please see the history and physical dictated by me on . While in the rehab unit, the patient had followup from his surgeon Dr. Rojas. Dr. Rojas felt that his heel ulcer would need debridement in the future. He recommended continuing to apply Santyl to it. On 05/21/17 the patient did in fact have debridement of the heel ulcer on his left foot. It was staged as a stage 3 pressure ulcer. Post procedure, the wound measured 5 x 4 cm and was 0.3 cm deep. On the day of discharge, the patient went back to see Dr. Rojas and was put in a full contact cast. The patient will follow up with Dr. Rojas in the wound clinic. The patient was allowed to weight bear as tolerated on both feet. His wound did not appear to get any worse with the weightbearing. The patient was able to taper off oxygen while on the rehab unit. When he arrived, he was on 10 L oxygen and when he left he had tapered of oxygen completely. His blood sugars were under good control while on the rehab unit. The patient has had several episodes of dizziness while on the rehab unit. His blood pressure medicines were cut back while on the rehab unit. The patient had developed stiff neck after sleeping funny one night. He was given muscle relaxers for this. Other than that the patient remained stable. He was seen by physical therapy and occupational therapy and made good gains with both disciplines. With Physical Therapy at the time of admission, the patient required max assist to do mobility. He had to transfer with a [place]y lift. He was unable to ambulate, unable to stand. With occupational therapy at the time of admission he was min assist for upper body dressing, mod assist for lower body dressing, total assistance for toileting and toilet transfers. By the time of discharge, the patient had progressed significantly. With physical therapy, he was able to transfer and walk 50 feet independently. He was not able to do stairs. With Occupational Therapy, the patient, at the time of discharge, was supervision upper body dressing, min assistance for lower body dressing, min assist for bathing, supervision for toileting. His came in for a training prior to discharge. The patient was discharged home on a 05/28/17. DISCHARGE DIET: Consistent carbohydrate. DISCHARGE MEDICATIONS: 1. Cozaar 100 mg daily. 2. Robaxin 1000 mg every 6 hours as needed. 3. Toprol XL 100 mg daily. 4. Xarelto 20 mg daily. 5. Flomax 0.4 mg daily. 6. Celexa 20 mg daily. 7. Lipitor 20 mg daily. SERVICES AFTER DISCHARGE: The patient will follow up with [facility] for wound healing and he will also follow up with Dr. Akins. [id number]/[facility] #: [id number] JASMEET
== END 2017-05-28 14:25 | disposition home or self-care (01) | DRG 500 ==
LOC: PMRU 13:35
PROVIDERS: ADMIT Physical Medicine & Rehabilitation; ATTEND Physical Medicine & Rehabilitation
PROC: F07Z5ZZ Bed Mobility Treatment (ICD-10-PCS; principal; 2017-05-11)
PROC: 0KBW0ZZ Excision of Left Foot Muscle, Open Approach (ICD-10-PCS; 2017-05-11)
PROC: F07Z9ZZ Gait Training/Functional Ambulation Treatment (ICD-10-PCS; 2017-05-11)
PROC: F07Z8ZZ Transfer Training Treatment (ICD-10-PCS; 2017-05-11)
PROC: F07Z4ZZ Wheelchair Mobility Treatment (ICD-10-PCS; 2017-05-11)
PROC: F08Z0ZZ Bathing/Showering Techniques Treatment (ICD-10-PCS; 2017-05-11)
PROC: F08Z1ZZ Dressing Techniques Treatment (ICD-10-PCS; 2017-05-11)
PROC: F08Z3ZZ Feeding/Eating Treatment (ICD-10-PCS; 2017-05-11)
PROC: F08Z2ZZ Grooming/Personal Hygiene Treatment (ICD-10-PCS; 2017-05-11)
DX: Z47.81 Encounter for orthopedic aftercare following surgical amputation (principal); J96.90 Respiratory failure, unspecified, unspecified whether with hypoxia or hypercapnia; Z68.42 Body mass index [BMI] 45.0-49.9, adult; L97.425 Non-pressure chronic ulcer of left heel and midfoot with muscle involvement without evidence of necrosis; E11.621 Type 2 diabetes mellitus with foot ulcer; I48.91 Unspecified atrial fibrillation; E66.01 Morbid (severe) obesity due to excess calories; I10 Essential (primary) hypertension; E78.5 Hyperlipidemia, unspecified; F10.10 Alcohol abuse, uncomplicated; N40.0 Benign prostatic hyperplasia without lower urinary tract symptoms; R74.0 Nonspecific elevation of levels of transaminase and lactic acid dehydrogenase [LDH]; M54.2 Cervicalgia; Z79.01 Long term (current) use of anticoagulants; Z79.899 Other long term (current) drug therapy; Z88.0 Allergy status to penicillin; Z89.422 Acquired absence of other left toe(s)
CPT/HCPCS: 36415; 80053; 80076; 82248; 85025; A9270-GY

== ENCOUNTER 2017-12-21 19:07 | Inpatient (IN) | payer MEDICARE, OTHER ==
--- OUTSIDE RECORDS SUMMARY | 2017-12-21 19:47 | XMS REPORT ---
:1950 External Reference #:[id number] Author Organization [place] [email or web address] [facility] Address [address] [address] Phone [phone] Care Team Providers Name Role Phone Ramez Akins III, MD Primary Care Physician Unavailable Payers Type Date Identification Numbers Payment Provider Subscriber Medicare Primary Policy Number: [id number] Medicare Albin Luevano PayID: [id number] [address] [place] [address] Medigap Part B Policy Number: [id number] [employer] Albin Luevano Group Number: [id number] [address] PayID: [id number] [place] [address] Problems Date Description Provider Status Onset: 03/03/2011 Impaired fasting glycaemia Ramez Akins M.D. Active Onset: 03/03/2011 Benign essential hypertension Ramez Akins M.D. Active Onset: 03/03/2011 Anxiety state Ramez Akins M.D. Active Onset: 03/03/2011 Pure hypercholesterolemia Ramez Akins M.D. Active Onset: 03/03/2011 Ulcer of foot Ramez Akins M.D. Active Onset: 12/10/2011 Type 2 diabetes mellitus Caitlyn Jones, N.PMartita Active Onset: 12/10/2011 Morbid obesity Caitlyn Jones N.PMartita Active Onset: 06/30/2012 Ulcer of lower extremity Ramez Akins M.D. Active Onset: 06/30/2012 Peripheral venous insufficiency Ramez Akins M.D. Active Onset: 05/28/2015 Essential hypertension Ramez Akins M.D. Active Onset: 10/24/2015 Disturbance in sleep behavior Purvi Rod MD Active Onset: 10/24/2015 Hypoxemia Purvi Rod MD Active Onset: 07/16/2016 Atrial fibrillation Ramez Akins M.D. Active Onset: 12/09/2017 Obstructive sleep apnea syndrome Ramez Akins M.D. 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 [employer] Cigarette Use Quit 30 Years Ago Cigarette Use Former Cigarette Smoker 1 Pack Daily ETOH Use Currently consumes alcohol 3 glasses of wine a day Smoking Patient is a former smoker Recreational Drug Use Denies Drug Use Daily Caffeine Does Not Consume Caffeine Exercise Type/Frequency Exercises sporadically PT and occasional visiting nurse service Allergies, Adverse Reactions, Alerts Date Description Reaction Status Severity Comments 01/05/2007 PCN active GI Pset Medications Medication Date Status Form Strength Qnty SIG Indications Ordering Provider Amlodipine 03/29 Active Tablets 5mg 90tab 1 by mouth Steffen Keller Besylate s every day DO Jose FACC Losartan 08/14 Active Tablets 100-25mg 90tab Take 1 tablet Ramez E. Potassium/[place] /2016 s by mouth Mable chlorothiazide every day M.DMartita Xarelto 02/27 Active Tablets 20mg 90tab Take 1 Tablet Ramez E. /2015 s By Mouth Mable, Every Day M.DMartita Atorvastatin 01/31 Active Tablets 20mg 90tab Take 1 Tablet E78.0 Ramez E. Calcium s By Mouth AT Mable, Bedtime M.Perico Metoprolol 04/07 Active Tablets 100mg 30tab take 1 tablet Ramez E. Succinate ER /2010 ER 24HR s by mouth daily Rex Akins Valium 11/27 Active Tablets 5mg 30tab 1 by mouth Ramez E. /2008 s three times a Mable, day as needed M.Perico Citalopram 05/17 Active Tablets 20mg 90tab Take 1 Tablet Ramez E. Hydrobromide /2007 s By Mouth Mable, Daily M.D. Multivitamins Active Tablets 1 PO qd Lety, /0000 MD Mikhail Tamsulosin HCL Active Capsules 0.4mg 1 by mouth Unknown /0000 every day 1/2 hour after dinner Aleve Active Capsules 220mg 1 tbalet as Unknown /0000 needed for pain, approximately twice a week. Ceftriaxone 09/29 Hx Solution 2gm 2 grams daily Bryn Sodium Rec iv x 6 wks at . [facility] [place]wyn, 12/19 M.D. Metronidazole 09/28 Hx Tablets 500mg 30tab 1 tab by mouth M86.171 Bryn s every 12 hours Perico [facility], 12/08 M.D. Amlodipine 11/27 Hx Tablets 10mg 90tab 1 by mouth Steffen Keller Besylate s every day Jose, - DO FACC 03/29 Losartan 08/14 Hx Tablets 100-25mg 30tab 1 by mouth Ramez Lopez Potassium/[place] s every day mikael Akins - M.Perico 08/14 Z Pack 08/22 Hx Tablets 250mg 6tabs 2 today 1 Ramez Lopez every day 4 Mable, - days M.DMartita 08/22 Azithromycin 08/22 Hx Tablets 250mg 6tabs two tabs day Martita one, one daily Mable - till gone M.DMartita 10/10 Tessalon Perles 02/16 Hx Capsules 100mg 30cap 1-2 po tid prn Ramez Lopez s Adrianne Akins M.D. 10/10 Metformin HCL 12/09 Hx Tablets 500mg 90tab Take 1 Tablet 250.00 Ramez Lopez s Daily Adrianne Akins M.D. 11/20 Lipitor 03/03 Hx Tablets 20mg 90tab one tab po qhs 272.0 Ramez Lopez /2010 s Adrianne Akins M.D. 01/31 Losartan 03/03 Hx Tablets 50-12.5mg 90tab take 1 tablet E78.0 Ramez Lopez Potassium/[place] s daily mikael Akins - M.Perico 08/24 Lisinopril/Hydr 10/16 Hx Tablets 20-12.5mg 90tab Take 1 Tablet 272.0 Ramez Lopez ochlorothiazide /2010 s Adrianne Baker M.D. 03/03 Z Pack 09/03 Hx Tablets 250mg 6tabs 2 today 1 qd 4 Ramez Jessica /2010 Adrianne Iqbal M.D. 03/03 Lisinopril/Hydr 01/24 Hx Tablets 10-12.5mg 30tab 1 po qd Ramez Lopez ochlorothiazide /2009 Adrianne Avery M.D. 01/24 Valium 10/16 Hx Tablets 5mg 90tab 1 po tid prn Ramez Lopez Adrianne Avery M.D. 01/17 Bentyl 08/07 Hx Tablets 20mg 20tab 1 po qid prn Ramez Lopez Adrianne Avery M.D. 01/24 Hydrocodone/Tra 11/06 Hx Tablets 10-650mg 90tab 1 po q 4-6 Dior, taminophen /2007 s hours prn Mayela Silver MD 11/06 Lisinopril 09/18 Hx Tablets 10mg 90tab 1 po qd to Ramez Lopez s use with Adrianne Akins M.D. 09/25 Lisinopril/HCT /2008 Z 12.5 Zestoretic 07/05 Hx Tablets 20-12.5 90tab po qd Ramez Lopez Adrianne Avery M.D. 03/03 Lisinopril 07/05 Hx Tablets 10mg 90tab 1 po qd Ramez Lopez Adrianne Avery M.D. 09/18 Zestoretic Hx Tablets 10/12.5 90tab 1 PO qd Ramez E. Adrianne Avery M.D. 07/05 Lipitor Hx Tablets 20mg 90tab one tab po qhs Ramez E. / Adrianne Avery M.D. 01/24 Aspirin Hx Tablets 81mg 1 PO qd- on DR hold on - xarelto 03/31 Toprol XL 00/00 Hx Tablets 100mg 30tab 1 PO qd Ramez E. /0000 ER 24HR s Adrianne Akins M.D. 04/07 Lexapro 00 Hx Tablets 10mg 90tab 1 PO qd Lety, /0000 s MD Mikhail - 05/17 Valium Hx Tablets 5mg 90tab 1 po tid prn Ramez E. /0000 s to fill as Adrianne Akins M.D. 11/27 /2008 Prednisone 0000 Hx Tablets 10mg 30tab 5tabx 2days,4 Unknown /0000 s [id number] - [id number],2ta 10/10 [id number],1tabx ay. Levofloxacin Hx Tablets 750mg 7tabs 1 tab po qd x Ramez E. / 7 days Adrianne Akins M.D. 10/10 Ventolin HFA Hx Aerosol 108(90Bas 1unit 2 puffs po qid Unknown /0000 e) mcg/ac s prn - 10/24 Sulfamethoxazol Hx Tablets 800-160mg 20tab 1 po bid Unknown e/Trimethoprim /0000 s DS - 10/10 Mupirocin Hx Ointment 2% 22gm apply to skin Unknown / lesions twice - daily 10/24 Doxycycline Hx Capsules 100mg one tablet Unknown Hyclate /0000 three times a - day (per 09/27 Bronwyn [facility] /2018 DC) Immunizations CPT Code Status Date Vaccine Lot # [id number] Given 01/23/2016 Flu Vaccine NOS [id number] Given 05/28/2015 Tdap - Tetanus/Diptheria/Acellular Pertussis [id number] 07643 Given 02/07/2015 Fluzone High Dose 36050 Given 09/25/2014 Pneumococcal Conjugate Vaccine 13 Valent For [id number] Intramuscular Use 53561 Given 01/23/2014 Fluzone High Dose 51307 Given 10/10/2013 Zoster (Zostavax) [id number] Q2039 Given 03/22/2013 Flu Vaccine NOS 56446 Given 03/31/2012 Pneumonia Vaccine [id number] Q2038 Given 02/11/2012 Fluzone Vaccine 58189 Given 03/03/2011 Influenza Virus 3Yrs & Over [id number] 52581 Given 01/24/2010 Influenza Virus 3Yrs & Over [id number] 80071 Given 02/07/2009 Influenza Virus 3Yrs & Over 62529 Given 02/07/2009 Influenza Virus 3Yrs & Over [id number] 40336 Given 01/05/2007 Influenza Virus 3Yrs & Over [id number] 52312 Given 06/02/2005 Td (History By Patient) Vital Signs Date Vital Result Comment 12/20/2017 Height 75 inches 6'3" Weight 385.00 lb Heart Rate 88 /min BP Systolic Sitting 100 mmHg BP Diastolic Sitting 68 mmHg Respiratory Rate 14 /min O2 % BldC Oximetry 98 % BMI (Body Mass Index) 48.1 kg/m2 12/09/2017 Height 75 inches 6'3" Weight 386.00 lb Heart Rate 96 /min BP Systolic Sitting 128 mmHg BP Diastolic Sitting 82 mmHg O2 % BldC Oximetry 95 % BMI (Body Mass Index) 48.2 kg/m2 09/28/2017 Height 75 inches 6'3" Weight 385.00 lb Heart Rate 68 /min BP Systolic Sitting 112 mmHg BP Diastolic Sitting 80 mmHg Respiratory Rate 16 /min Body Temperature 98.1 F BMI (Body Mass Index) 48.1 kg/m2 03/29/2017 Height 75 inches 6'3" Weight 384.75 lb with shoes Heart Rate 88 /min BP Systolic Sitting 112 mmHg Rue LG cuff BP Diastolic Sitting 70 mmHg Rue LG cuff BP Systolic Standing 90 mmHg Rue lg cuff BP Diastolic Standing 72 mmHg Rue lg cuff BP Systolic Lying Down 108 mmHg Rue lg cuff BP Diastolic Lying Down 60 mmHg Rue lg cuff Respiratory Rate 17 /min O2 % BldC Oximetry 95 % at room air BMI (Body Mass Index) 48.1 kg/m2 Ejection Fraction 55% date 03/23/2016 ECHO 11/12/2016 Height 74.5 inches 6'2.50" Weight 400.50 lb with shoes Heart Rate 74 /min BP Systolic Sitting 160 mmHg Lue lrg cuff BP Diastolic Sitting 108 mmHg Lue lrg cuff BP Systolic Standing 156 mmHg Lue lrg cuff BP Diastolic Standing 104 mmHg Lue lrg cuff Respiratory Rate 20 /min BMI (Body Mass Index) 50.7 kg/m2 Ejection Fraction 55% 03/23/2016-echo 08/10/2016 Heart Rate 96 /min BP Systolic 160 mmHg manual BP Diastolic 120 mmHg manual BP Systolic Sitting 189 mmHg his machine BP Diastolic Sitting 134 mmHg his machine 07/16/2016 Height 74.50 inches 6'2.50" Weight 391.25 lb Heart Rate 78 /min BP Systolic 140 mmHg BP Diastolic 90 mmHg Body Temperature 98.6 F O2 % BldC Oximetry 97 % BMI (Body Mass Index) 49.6 kg/m2 07/10/2016 Height 75 inches 6'3" Weight 394.00 lb Heart Rate 88 /min BP Systolic Sitting 168 mmHg Ra lrg cuff BP Diastolic Sitting 108 mmHg Ra lrg cuff BP Systolic Standing 168 mmHg Ra lrg cuff BP Diastolic Standing 108 mmHg Ra lrg cuff BMI (Body Mass Index) 49.2 kg/m2 03/31/2016 Height 75 inches 6'3" Weight 400.25 lb with shoes off Heart Rate 86 /min BP Systolic Sitting 122 mmHg Rue lg cuff BP Diastolic Sitting 88 mmHg Rue lg cuff BP Systolic Standing 120 mmHg Lue lg cuff BP Diastolic Standing 90 mmHg Lue lg cuff BP Systolic Lying Down 122 mmHg LUe lg cuff BP Diastolic Lying Down 76 mmHg LUe lg cuff Respiratory Rate 17 /min BMI (Body Mass Index) 50.0 kg/m2 03/04/2016 Weight 423.00 lb Heart Rate 89 /min BP Systolic Sitting 152 mmHg BP Diastolic Sitting 90 mmHg Body Temperature 98.0 F O2 % BldC Oximetry 94 % 02/26/2016 Weight 416.00 lb Heart Rate 93 /min BP Systolic Sitting 196 mmHg BP Diastolic Sitting 126 mmHg O2 % BldC Oximetry 95 % 10/24/2015 Height 74 inches 6'2" Weight 408.50 lb Heart Rate 110 /min BP Systolic 162 mmHg BP Diastolic 100 mmHg Respiratory Rate 16 /min O2 % BldC Oximetry 96 % BMI (Body Mass Index) 52.4 kg/m2 Neck Circumference in inches 22 05/28/2015 Height 74 inches 6'2" Weight 401.00 lb Heart Rate 64 /min BP Systolic 164 mmHg 148/100 BP Diastolic 90 mmHg 148/100 Body Temperature 97.5 F O2 % BldC Oximetry 95 % BMI (Body Mass Index) 51.5 kg/m2 11/20/2014 Weight 384.00 lb Heart Rate 66 /min BP Systolic Sitting 138 mmHg BP Diastolic Sitting 84 mmHg Body Temperature 98.5 F O2 % BldC Oximetry 98 % 09/25/2014 Weight 327.00 lb Heart Rate 100 /min BP Systolic Sitting 148 mmHg BP Diastolic Sitting 90 mmHg O2 % BldC Oximetry 97 % 10/24/2013 Weight 397.00 lb Heart Rate 80 /min BP Systolic Sitting 154 mmHg BP Diastolic Sitting 102 mmHg Body Temperature 97.5 F 10/10/2013 Height 74 inches 6'2" Weight 382.50 lb Heart Rate 64 /min BP Systolic Sitting 150 mmHg BP Diastolic Sitting 72 mmHg BMI (Body Mass Index) 49.1 kg/m2 02/06/2013 Weight 384.00 lb plus foot brace Heart Rate 70 /min BP Systolic Sitting 142 mmHg BP Diastolic Sitting 86 mmHg Body Temperature 100.7 F O2 % BldC Oximetry 95 % 06/30/2012 Height 74 inches 6'2" Weight 363.00 lb Heart Rate 72 /min BP Systolic Sitting 136 mmHg BP Diastolic Sitting 74 mmHg BMI (Body Mass Index) 46.6 kg/m2 03/31/2012 Height 74 inches 6'2" Weight 378.00 lb Heart Rate 60 /min BP Systolic Sitting 130 mmHg BP Diastolic Sitting 84 mmHg BMI (Body Mass Index) 48.5 kg/m2 12/10/2011 Height 74 inches 6'2" Heart Rate 84 /min BP Systolic Sitting 130 mmHg BP Diastolic Sitting 80 mmHg 11/19/2011 Height 74 inches 6'2" Weight 421.00 lb Heart Rate 80 /min BP Systolic Sitting 130 mmHg BP Diastolic Sitting 82 mmHg Body Temperature 97.5 F BMI (Body Mass Index) 54.0 kg/m2 03/03/2011 Height 73.75 inches 6'1.75" Weight 403.25 lb Heart Rate 88 /min BP Systolic Sitting 120 mmHg BP Diastolic Sitting 78 mmHg BMI (Body Mass Index) 52.1 kg/m2 01/24/2010 Weight 380.00 lb Heart Rate 76 /min BP Systolic Sitting 138 mmHg BP Diastolic Sitting 82 mmHg Body Temperature 97.9 F 10/08/2008 Height 77 inches 6'5" Weight 310.00 lb Heart Rate 72 /min BP Systolic Sitting 110 mmHg BP Diastolic Sitting 74 mmHg BMI (Body Mass Index) 36.8 kg/m2 08/07/2008 Height 77 inches 6'5" Weight 297.00 lb down 13# Heart Rate 88 /min BP Systolic Sitting 110 mmHg BP Diastolic Sitting 60 mmHg BMI (Body Mass Index) 35.2 kg/m2 04/24/2008 Height 77 inches 6'5" Weight 310.00 lb with shoes Heart Rate 88 /min BP Systolic Sitting 116 mmHg BP Diastolic Sitting 80 mmHg BMI (Body Mass Index) 36.8 kg/m2 12/29/2007 Height 77 inches 6'5" Heart Rate 88 /min BP Systolic Sitting 132 mmHg BP Diastolic Sitting 80 mmHg 12/06/2007 Height 77 inches 6'5" Weight 313.00 lb with metal foot brace Heart Rate 68 /min BP Systolic Sitting 146 mmHg BP Diastolic Sitting 94 mmHg BMI (Body Mass Index) 37.1 kg/m2 11/07/2007 Height 77 inches 6'5" Heart Rate 76 /min BP Systolic Sitting 130 mmHg BP Diastolic Sitting 80 mmHg 08/18/2007 Height 77 inches 6'5" Weight 288.00 lb lost 5# since last visit Heart Rate 92 /min BP Systolic Sitting 134 mmHg BP Diastolic Sitting 86 mmHg BMI (Body Mass Index) 34.1 kg/m2 07/06/2007 Height 77 inches 6'5" Weight 293.00 lb Heart Rate 88 /min BP Systolic Sitting 158 mmHg BP Diastolic Sitting 96 mmHg BMI (Body Mass Index) 34.7 kg/m2 01/05/2007 Height 77 inches 6'5" Weight 279.00 lb Heart Rate 84 /min BP Systolic Sitting 140 mmHg BP Diastolic Sitting 76 mmHg BMI (Body Mass Index) 33.1 kg/m2 Results Test Date Test Result H/L Range Note Laboratory test 12/09/2017 Hemoglobin A1c 5.1 5-7 finding Laboratory test 12/09/2017 Epifix 3.5X3.5 Mesh SEE RESULTS BELO 1, 2 finding <SEE NOTE> Laboratory test 11/26/2017 Point of Care 108 mg/dL High 70-100 3 finding Glucose Laboratory test 11/26/2017 Point of Care 134 mg/dL High 70-100 4 finding Glucose Laboratory test 11/26/2017 Point of Care 124 mg/dL High 70-100 5 finding Glucose Laboratory test 11/25/2017 Point of Care 108 mg/dL High 70-100 6 finding Glucose Laboratory test 11/25/2017 Point of Care 130 mg/dL High 70-100 7 finding Glucose Laboratory test 11/23/2017 Point of Care 123 mg/dL High 70-100 8 finding Glucose Laboratory test 11/23/2017 Point of Care 152 mg/dL High 70-100 9 finding Glucose Laboratory test 11/18/2017 Point of Care 112 mg/dL High 70-100 10 finding Glucose Laboratory test 11/18/2017 Point of Care 135 mg/dL High 70-100 11 finding Glucose Laboratory test 11/17/2017 Point of Care 99 mg/dL 70-100 12 finding Glucose Laboratory test 11/17/2017 Point of Care 142 mg/dL High 70-100 13 finding Glucose Laboratory test 11/16/2017 Point of Care 112 mg/dL High 70-100 14 finding Glucose Laboratory test 11/16/2017 Point of Care 154 mg/dL High 70-100 15 finding Glucose Laboratory test 11/15/2017 Point of Care 115 mg/dL High 70-100 16 finding Glucose Laboratory test 11/15/2017 Point of Care 117 mg/dL High 70-100 17 finding Glucose Laboratory test 11/12/2017 Point of Care 124 mg/dL High 70-100 18 finding Glucose Laboratory test 11/12/2017 Point of Care 143 mg/dL High 70-100 19 finding Glucose Laboratory test 11/11/2017 Point of Care 124 mg/dL High 70-100 20 finding Glucose Laboratory test 11/11/2017 Point of Care 142 mg/dL High 70-100 21 finding Glucose Laboratory test 11/10/2017 Point of Care 109 mg/dL High 70-100 22 finding Glucose Laboratory test 11/10/2017 Point of Care 159 mg/dL High 70-100 23 finding Glucose Laboratory test 11/09/2017 Point of Care 109 mg/dL High 70-100 24 finding Glucose Laboratory test 11/09/2017 Point of Care 135 mg/dL High 70-100 25 finding Glucose CBC Auto Diff 11/08/2017 White Blood Count 6.8 10^3/uL 3.5-10.8 Red Blood Count 3.93 10^6/uL Low 4.00-5.40 Hemoglobin 13.6 g/dL Low 14.0-18.0 Hematocrit 40 % Low 42-52 Mean Corpuscular Volume 103 fL High 80-94 Mean Corpuscular Hemoglobin 35 pg High 27-31 Mean Corpuscular HGB Conc 34 g/dL 31-36 Red Cell Distribution Width 15 % 10.5-15 Platelet Count 155 10^3/uL 150-450 Mean Platelet Volume 9.5 um3 7.4-10.4 Abs Neutrophils 4.5 10^3/uL 1.5-7.7 Abs Lymphocytes 1.0 10^3/uL 1.0-4.8 Abs Monocytes 1.0 10^3/uL High 0-0.8 Abs Eosinophils 0.2 10^3/uL 0-0.6 Abs Basophils 0.1 10^3/uL 0-0.2 Abs Nucleated RBC 0 10^3/uL Granulocyte % 66.5 % 38-83 Lymphocyte % 14.9 % Low 25-47 Monocyte % 14.1 % High 0-7 Eosinophil % 3.5 % 0-6 Basophil % 1.0 % 0-2 Nucleated Red Blood Cells % 0.3 Comp Metabolic Panel 11/08/2017 Sodium 139 mmol/L 135-145 Potassium 3.9 mmol/L 3.5-5.0 Chloride 101 mmol/L 101-111 Co2 Carbon Dioxide 28 mmol/L 22-32 Anion Gap 10 mmol/L 2-11 Glucose 91 mg/dL 70-100 Blood Urea Nitrogen 17 mg/dL 6-24 Creatinine 0.91 mg/dL 0.67-1.17 BUN/Creatinine Ratio 18.7 8-20 Calcium 8.6 mg/dL 8.6-10.3 Total Protein 6.7 g/dL 6.4-8.9 Albumin 3.4 g/dL 3.2-5.2 Globulin 3.3 g/dL 2-4 Albumin/Globulin Ratio 1.0 1-3 Total Bilirubin 0.40 mg/dL 0.2-1.0 Alkaline Phosphatase 120 U/L High 34-104 Alt 22 U/L 7-52 Ast 35 U/L 13-39 Egfr Non- 82.6 >60 Egfr 100.0 >60 26 Laboratory test finding 11/08/2017 C Reactive Protein 7.49 mg/L <8.01 Laboratory test finding 11/08/2017 Point of Care Glucose 113 mg/dL High 70 -100 27 Laboratory test finding 11/08/2017 Point of Care Glucose 159 mg/dL High 70 -100 28 Laboratory test finding 11/05/2017 Point of Care Glucose 121 mg/dL High 70 -100 29 Laboratory test finding 11/05/2017 Point of Care Glucose 121 mg/dL High 70 -100 30 Laboratory test finding 11/04/2017 Point of Care Glucose 113 mg/dL High 70 -100 31 Laboratory test finding 11/04/2017 Point of Care Glucose 149 mg/dL High 70 -100 32 Laboratory test finding 11/03/2017 Point of Care Glucose 98 mg/dL 70-100 33 Laboratory test finding 11/03/2017 Point of Care Glucose 158 mg/dL High 70 -100 34 Laboratory test finding 11/02/2017 Point of Care Glucose 108 mg/dL High 70 -100 35 Laboratory test finding 11/02/2017 Point of Care Glucose 153 mg/dL High 70 -100 36 Comp Metabolic Panel 11/01/2017 Sodium 137 mmol/L 135-145 Potassium 4.0 mmol/L 3.5-5.0 Chloride 100 mmol/L Low 101-111 Co2 Carbon Dioxide 31 mmol/L 22-32 Anion Gap 6 mmol/L 2-11 Glucose 103 mg/dL High 70-100 Blood Urea Nitrogen 12 mg/dL 6-24 Creatinine 0.91 mg/dL 0.67-1.17 BUN/Creatinine Ratio 13.2 8-20 Calcium 8.6 mg/dL 8.6-10.3 Total Protein 6.9 g/dL 6.4-8.9 Albumin 3.5 g/dL 3.2-5.2 Globulin 3.4 g/dL 2-4 Albumin/Globulin Ratio 1.0 1-3 Total Bilirubin 0.80 mg/dL 0.2-1.0 Alkaline Phosphatase 127 U/L High 34-104 Alt 21 U/L 7-52 Ast 29 U/L 13-39 Egfr Non- 82.6 >60 Egfr 100.0 >60 37 Laboratory test finding 11/01/2017 C Reactive Protein 22.08 mg/L High < 8.01 CBC Auto Diff 11/01/2017 White Blood Count 7.8 10^3/uL 3.5-10.8 Red Blood Count 4.16 10^6/uL 4.00-5.40 Hemoglobin 14.1 g/dL 14.0-18.0 Hematocrit 42 % 42-52 Mean Corpuscular Volume 101 fL High 80-94 Mean Corpuscular Hemoglobin 34 pg High 27-31 Mean Corpuscular HGB Conc 34 g/dL 31-36 Red Cell Distribution Width 16 % High 10.5-15 Platelet Count 166 10^3/uL 150-450 Mean Platelet Volume 8.8 um3 7.4-10.4 Abs Neutrophils 5.4 10^3/uL 1.5-7.7 Abs Lymphocytes 1.1 10^3/uL 1.0-4.8 Abs Monocytes 1.1 10^3/uL High 0-0.8 Abs Eosinophils 0.3 10^3/uL 0-0.6 Abs Basophils 0.1 10^3/uL 0-0.2 Abs Nucleated RBC 0 10^3/uL Granulocyte % 68.7 % 38-83 Lymphocyte % 13.6 % Low 25-47 Monocyte % 13.7 % High 0-7 Eosinophil % 3.2 % 0-6 Basophil % 0.8 % 0-2 Nucleated Red Blood Cells % 0.1 Laboratory test finding 11/01/2017 Point of Care Glucose 94 mg/dL 70-100 38 Laboratory test finding 11/01/2017 Point of Care Glucose 154 mg/dL High 70 -100 39 Laboratory test finding 10/28/2017 Point of Care Glucose 99 mg/dL 70-100 40 Laboratory test finding 10/28/2017 Point of Care Glucose 124 mg/dL High 70 -100 41 Laboratory test finding 10/27/2017 Point of Care Glucose 127 mg/dL High 70 -100 42 Laboratory test finding 10/27/2017 Point of Care Glucose 97 mg/dL 70-100 43 Laboratory test finding 10/26/2017 Point of Care Glucose 124 mg/dL High 70 -100 44 Laboratory test finding 10/26/2017 Point of Care Glucose 125 mg/dL High 70 -100 45 Laboratory test finding 10/26/2017 Point of Care Glucose 109 mg/dL High 70 -100 46 CBC Auto Diff 10/25/2017 White Blood Count 6.7 10^3/uL 3.5-10.8 Red Blood Count 4.32 10^6/uL 4.00-5.40 Hemoglobin 14.6 g/dL 14.0-18.0 Hematocrit 44 % 42-52 Mean Corpuscular Volume 101 fL High 80-94 Mean Corpuscular Hemoglobin 34 pg High 27-31 Mean Corpuscular HGB Conc 33 g/dL 31-36 Red Cell Distribution Width 16 % High 10.5-15 Platelet Count 165 10^3/uL 150-450 Mean Platelet Volume 8.7 um3 7.4-10.4 Abs Neutrophils 4.3 10^3/uL 1.5-7.7 Abs Lymphocytes 1.2 10^3/uL 1.0-4.8 Abs Monocytes 0.9 10^3/uL High 0-0.8 Abs Eosinophils 0.2 10^3/uL 0-0.6 Abs Basophils 0.1 10^3/uL 0-0.2 Abs Nucleated RBC 0 10^3/uL Granulocyte % 64.5 % 38-83 Lymphocyte % 17.5 % Low 25-47 Monocyte % 13.6 % High 0-7 Eosinophil % 3.2 % 0-6 Basophil % 1.2 % 0-2 Nucleated Red Blood Cells % 0.1 Comp Metabolic Panel 10/25/2017 Sodium 139 mmol/L 135-145 Potassium 3.9 mmol/L 3.5-5.0 Chloride 103 mmol/L 101-111 Co2 Carbon Dioxide 29 mmol/L 22-32 Anion Gap 7 mmol/L 2-11 Glucose 109 mg/dL High 70-100 Blood Urea Nitrogen 13 mg/dL 6-24 Creatinine 0.94 mg/dL 0.67-1.17 BUN/Creatinine Ratio 13.8 8-20 Calcium 9.1 mg/dL 8.6-10.3 Total Protein 6.8 g/dL 6.4-8.9 Albumin 3.4 g/dL 3.2-5.2 Globulin 3.4 g/dL 2-4 Albumin/Globulin Ratio 1.0 1-3 Total Bilirubin 0.70 mg/dL 0.2-1.0 Alkaline Phosphatase 101 U/L 34-104 Alt 24 U/L 7-52 Ast 31 U/L 13-39 Egfr Non- 79.6 >60 Egfr 96.3 >60 47 Laboratory test finding 10/25/2017 C Reactive Protein 4.74 mg/L <8.01 Laboratory test finding 10/25/2017 Point of Care Glucose 99 mg/dL 70-100 48 Laboratory test finding 10/25/2017 Point of Care Glucose 118 mg/dL High 70 -100 49 Laboratory test finding 10/25/2017 Point of Care Glucose 117 mg/dL High 70 -100 50 Laboratory test finding 10/22/2017 Point of Care Glucose 101 mg/dL High 70 -100 51 Laboratory test finding 10/22/2017 Point of Care Glucose 132 mg/dL High 70 -100 52 Laboratory test finding 10/21/2017 Point of Care Glucose 180 mg/dL High 70 -100 53 Laboratory test finding 10/21/2017 Point of Care Glucose 111 mg/dL High 70 -100 54 Laboratory test finding 10/20/2017 Point of Care Glucose 115 mg/dL High 70 -100 55 Laboratory test finding 10/20/2017 Point of Care Glucose 119 mg/dL High 70 -100 56 Laboratory test finding 10/19/2017 Point of Care Glucose 134 mg/dL High 70 -100 57 Laboratory test finding 10/19/2017 Point of Care Glucose 123 mg/dL High 70 -100 58 Laboratory test finding 10/18/2017 Point of Care Glucose 117 mg/dL High 70 -100 59 CBC Auto Diff 10/18/2017 White Blood Count 6.5 10^3/uL 3.5-10.8 Red Blood Count 4.23 10^6/uL 4.00-5.40 Hemoglobin 14.3 g/dL 14.0-18.0 Hematocrit 42 % 42-52 Mean Corpuscular Volume 100 fL High 80-94 Mean Corpuscular Hemoglobin 34 pg High 27-31 Mean Corpuscular HGB Conc 34 g/dL 31-36 Red Cell Distribution Width 16 % High 10.5-15 Platelet Count 165 10^3/uL 150-450 Mean Platelet Volume 8.8 um3 7.4-10.4 Abs Neutrophils 4.4 10^3/uL 1.5-7.7 Abs Lymphocytes 0.9 10^3/uL Low 1.0-4.8 Abs Monocytes 1.0 10^3/uL High 0-0.8 Abs Eosinophils 0.2 10^3/uL 0-0.6 Abs Basophils 0 10^3/uL 0-0.2 Abs Nucleated RBC 0 10^3/uL Granulocyte % 67.6 % 38-83 Lymphocyte % 14.0 % Low 25-47 Monocyte % 14.7 % High 0-7 Eosinophil % 3.0 % 0-6 Basophil % 0.7 % 0-2 Nucleated Red Blood Cells % 0.1 Laboratory test finding 10/18/2017 C Reactive Protein 11.79 mg/L High < 8.01 Comp Metabolic Panel 10/18/2017 Sodium 138 mmol/L 135-145 Potassium 3.7 mmol/L 3.5-5.0 Chloride 102 mmol/L 101-111 Co2 Carbon Dioxide 31 mmol/L 22-32 Anion Gap 5 mmol/L 2-11 Glucose 102 mg/dL High 70-100 Blood Urea Nitrogen 16 mg/dL 6-24 Creatinine 0.99 mg/dL 0.67-1.17 BUN/Creatinine Ratio 16.2 8-20 Calcium 8.8 mg/dL 8.6-10.3 Total Protein 6.5 g/dL 6.4-8.9 Albumin 3.3 g/dL 3.2-5.2 Globulin 3.2 g/dL 2-4 Albumin/Globulin Ratio 1.0 1-3 Total Bilirubin 0.60 mg/dL 0.2-1.0 Alkaline Phosphatase 121 U/L High 34-104 Alt 49 U/L 7-52 Ast 52 U/L High 13-39 Egfr Non- 75.0 >60 Egfr 90.7 >60 60 Laboratory test finding 10/18/2017 Point of Care Glucose 153 mg/dL High 70 -100 61 Laboratory test finding 10/15/2017 Point of Care Glucose 100 mg/dL 70- 100 62 Laboratory test finding 10/15/2017 Point of Care Glucose 115 mg/dL High 70 -100 63 Laboratory test finding 10/14/2017 Point of Care Glucose 144 mg/dL High 70 -100 64 Laboratory test finding 10/14/2017 Point of Care Glucose 93 mg/dL 70-100 65 Laboratory test finding 10/14/2017 Point of Care Glucose 117 mg/dL High 70 -100 66 Laboratory test finding 10/12/2017 Point of Care Glucose 107 mg/dL High 70 -100 67 Laboratory test finding 10/12/2017 Point of Care Glucose 135 mg/dL High 70 -100 68 Laboratory test finding 10/12/2017 Point of Care Glucose 169 mg/dL High 70 -100 69 Laboratory test finding 10/11/2017 Point of Care Glucose 131 mg/dL High 70 -100 70 CBC Auto Diff 10/11/2017 White Blood Count 6.9 10^3/uL 3.5-10.8 Red Blood Count 4.21 10^6/uL 4.00-5.40 Hemoglobin 14.2 g/dL 14.0-18.0 Hematocrit 42 % 42-52 Mean Corpuscular Volume 101 fL High 80-94 Mean Corpuscular Hemoglobin 34 pg High 27-31 Mean Corpuscular HGB Conc 34 g/dL 31-36 Red Cell Distribution Width 16 % High 10.5-15 Platelet Count 167 10^3/uL 150-450 Mean Platelet Volume 8.4 um3 7.4-10.4 Abs Neutrophils 4.5 10^3/uL 1.5-7.7 Abs Lymphocytes 1.1 10^3/uL 1.0-4.8 Abs Monocytes 0.9 10^3/uL High 0-0.8 Abs Eosinophils 0.2 10^3/uL 0-0.6 Abs Basophils 0.1 10^3/uL 0-0.2 Abs Nucleated RBC 0 10^3/uL Granulocyte % 66.1 % 38-83 Lymphocyte % 16.1 % Low 25-47 Monocyte % 13.2 % High 0-7 Eosinophil % 3.6 % 0-6 Basophil % 1.0 % 0-2 Nucleated Red Blood Cells % 0.1 Laboratory test finding 10/11/2017 Point of Care Glucose 119 mg/dL High 70 -100 71 Laboratory test finding 10/11/2017 C Reactive Protein 7.43 mg/L <8.01 Comp Metabolic Panel 10/11/2017 Sodium 138 mmol/L 135-145 Potassium 4.0 mmol/L 3.5-5.0 Chloride 104 mmol/L 101-111 Co2 Carbon Dioxide 28 mmol/L 22-32 Anion Gap 6 mmol/L 2-11 Glucose 100 mg/dL 70-100 Blood Urea Nitrogen 14 mg/dL 6-24 Creatinine 0.98 mg/dL 0.67-1.17 BUN/Creatinine Ratio 14.3 8-20 Calcium 9.1 mg/dL 8.6-10.3 Total Protein 6.7 g/dL 6.4-8.9 Albumin 3.4 g/dL 3.2-5.2 Globulin 3.3 g/dL 2-4 Albumin/Globulin Ratio 1.0 1-3 Total Bilirubin 0.60 mg/dL 0.2-1.0 Alkaline Phosphatase 104 U/L 34-104 Alt 57 U/L High 7-52 Ast 64 U/L High 13-39 Egfr Non- 75.8 >60 Egfr 91.8 >60 72 Comp Metabolic Panel 10/04/2017 Sodium 134 mmol/L Low 135-145 Potassium 3.9 mmol/L 3.5-5.0 Chloride 100 mmol/L Low 101-111 Co2 Carbon Dioxide 28 mmol/L 22-32 Anion Gap 6 mmol/L 2-11 Glucose 129 mg/dL High 70-100 Blood Urea Nitrogen 15 mg/dL 6-24 Creatinine 0.92 mg/dL 0.67-1.17 BUN/Creatinine Ratio 16.3 8-20 Calcium 8.8 mg/dL 8.6-10.3 Total Protein 6.4 g/dL 6.4-8.9 Albumin 3.4 g/dL 3.2-5.2 Globulin 3.0 g/dL 2-4 Albumin/Globulin Ratio 1.1 1-3 Total Bilirubin 0.60 mg/dL 0.2-1.0 Alkaline Phosphatase 113 U/L High 34-104 Alt 55 U/L High 7-52 Ast 74 U/L High 13-39 Egfr Non- 81.6 >60 Egfr 98.7 >60 73 CBC Auto Diff 10/04/2017 White Blood Count 5.9 10^3/uL 3.5-10.8 Red Blood Count 4.27 10^6/uL 4.00-5.40 Hemoglobin 14.6 g/dL 14.0-18.0 Hematocrit 43 % 42-52 Mean Corpuscular Volume 100 fL High 80-94 Mean Corpuscular Hemoglobin 34 pg High 27-31 Mean Corpuscular HGB Conc 34 g/dL 31-36 Red Cell Distribution Width 16 % High 10.5-15 Platelet Count 157 10^3/uL 150-450 Mean Platelet Volume 8.7 um3 7.4-10.4 Abs Neutrophils 4.2 10^3/uL 1.5-7.7 Abs Lymphocytes 0.6 10^3/uL Low 1.0-4.8 Abs Monocytes 0.6 10^3/uL 0-0.8 Abs Eosinophils 0.5 10^3/uL 0-0.6 Abs Basophils 0.1 10^3/uL 0-0.2 Abs Nucleated RBC 0 10^3/uL Granulocyte % 70.7 % 38-83 Lymphocyte % 10.2 % Low 25-47 Monocyte % 10.4 % High 0-7 Eosinophil % 7.7 % High 0-6 Basophil % 1.0 % 0-2 Nucleated Red Blood Cells % 0 Laboratory test finding 10/04/2017 C Reactive Protein 12.45 mg/L High < 8.01 Laboratory test finding 10/02/2017 C Reactive Protein 5.92 mg/L <8.01 Comp Metabolic Panel 10/02/2017 Sodium 134 mmol/L Low 135-145 Potassium 3.8 mmol/L 3.5-5.0 Chloride 98 mmol/L Low 101-111 Co2 Carbon Dioxide 31 mmol/L 22-32 Anion Gap 5 mmol/L 2-11 Glucose 112 mg/dL High 70-100 Blood Urea Nitrogen 19 mg/dL 6-24 Creatinine 0.96 mg/dL 0.67-1.17 BUN/Creatinine Ratio 19.8 8-20 Calcium 9.1 mg/dL 8.6-10.3 Total Protein 6.5 g/dL 6.4-8.9 Albumin 3.5 g/dL 3.2-5.2 Globulin 3.0 g/dL 2-4 Albumin/Globulin Ratio 1.2 1-3 Total Bilirubin 0.70 mg/dL 0.2-1.0 Alkaline Phosphatase 124 U/L High 34-104 Alt 21 U/L 7-52 Ast 27 U/L 13-39 Egfr Non- 77.7 >60 Egfr 94.0 >60 74 CBC Auto Diff 10/02/2017 White Blood Count 6.3 10^3/uL 3.5-10.8 Red Blood Count 4.29 10^6/uL 4.00-5.40 Hemoglobin 14.7 g/dL 14.0-18.0 Hematocrit 43 % 42-52 Mean Corpuscular Volume 99 fL High 80-94 Mean Corpuscular Hemoglobin 34 pg High 27-31 Mean Corpuscular HGB Conc 35 g/dL 31-36 Red Cell Distribution Width 16 % High 10.5-15 Platelet Count 164 10^3/uL 150-450 Mean Platelet Volume 8.9 um3 7.4-10.4 Abs Neutrophils 4.3 10^3/uL 1.5-7.7 Abs Lymphocytes 0.9 10^3/uL Low 1.0-4.8 Abs Monocytes 0.8 10^3/uL 0-0.8 Abs Eosinophils 0.3 10^3/uL 0-0.6 Abs Basophils 0.1 10^3/uL 0-0.2 Abs Nucleated RBC 0 10^3/uL Granulocyte % 67.8 % 38-83 Lymphocyte % 14.3 % Low 25-47 Monocyte % 12.7 % High 0-7 Eosinophil % 4.1 % 0-6 Basophil % 1.1 % 0-2 Nucleated Red Blood Cells % 0.2 Wound Culture/Sensi 09/28/2017 Wound/Misc SEE RESULT 75, 76 Culture-Gram Stain BELOW Basic Metabolic Panel 09/17/2017 Sodium 135 mmol/L Low 139-145 Potassium 4.5 mmol/L 3.5-5.0 Chloride 100 mmol/L Low 101-111 Co2 Carbon Dioxide 28 mmol/L 22-32 Anion Gap 7 mmol/L 2-11 Glucose 101 mg/dL High 70-100 Blood Urea Nitrogen 12 mg/dL 6-24 Creatinine 1.09 mg/dL 0.67-1.17 BUN/Creatinine Ratio 11.0 8-20 Calcium 9.3 mg/dL 8.6-10.3 Egfr Non- 67.1 >60 Egfr 86.3 >60 77 Laboratory test finding 09/17/2017 C Reactive Protein 14.45 mg/L High < 5.00 78 Hemoglobin A1c (Glyco HGB) 5.4 % 4.0-5.6 79 CBC Auto Diff 09/17/2017 White Blood Count 5.8 10^3/uL 3.5-10.8 Red Blood Count 4.18 10^6/uL 4.0-5.4 Hemoglobin 13.9 g/dL Low 14.0-18.0 Hematocrit 42 % 42-52 Mean Corpuscular Volume 100 fL High 80-94 Mean Corpuscular Hemoglobin 33 pg High 27-31 Mean Corpuscular HGB Conc 33 g/dL 31-36 Red Cell Distribution Width 16 % High 10.5-15 Platelet Count 161 10^3/uL 150-450 Mean Platelet Volume 8.2 um3 7.4-10.4 Abs Neutrophils 3.6 10^3/uL 1.5-7.7 Abs Lymphocytes 0.9 10^3/uL Low 1.0-4.8 Abs Monocytes 1.0 10^3/uL High 0-0.8 Abs Eosinophils 0.2 10^3/uL 0-0.6 Abs Basophils 0.1 10^3/uL 0-0.2 Abs Nucleated RBC 0 10^3/uL Granulocyte % 62.5 % 38-83 Lymphocyte % 15.6 % Low 25-47 Monocyte % 17.4 % High 0-7 Eosinophil % 3.2 % 0-6 Basophil % 1.3 % 0-2 Nucleated Red Blood Cells % 0 Laboratory test 09/16/2017 Epifix 3.5X3.5 Mesh SEE RESULTS BELO 80, 81 finding <SEE NOTE> Laboratory test 09/09/2017 Epifix 3.5X3.5 Mesh SEE RESULTS BELO 80, 82 finding <SEE NOTE> Laboratory test 08/13/2017 [facility] of Care 119 mg/dL High 70-100 83 finding Glucose Laboratory test 08/13/2017 [facility] Care 129 mg/dL High 70-100 84 finding Glucose Laboratory test 08/12/2017 [facility] of Care 113 mg/dL High 70-100 85 finding Glucose Laboratory test 08/12/2017 [facility] of Care 178 mg/dL High 70-100 86 finding Glucose Laboratory test 08/11/2017 [facility] Care 153 mg/dL High 70-100 87 finding Glucose Laboratory test 08/11/2017 [facility] of Care 120 mg/dL High 70-100 88 finding Glucose Laboratory test 08/09/2017 [facility] of Care 109 mg/dL High 70-100 89 finding Glucose Laboratory test 08/09/2017 [facility] of Care 154 mg/dL High 70-100 90 finding Glucose Laboratory test 08/06/2017 [facility] of Care 134 mg/dL High 70-100 91 finding Glucose Laboratory test 08/06/2017 [facility] of Care 109 mg/dL High 70-100 92 finding Glucose Laboratory test 08/04/2017 [facility] of Care 117 mg/dL High 70-100 93 finding Glucose Laboratory test 08/04/2017 [facility] of Care 138 mg/dL High 70-100 94 finding Glucose Laboratory test 08/03/2017 [facility] Care 112 mg/dL High 70-100 95 finding Glucose Laboratory test 08/03/2017 [facility] of Care 142 mg/dL High 70-100 96 finding Glucose Laboratory test 08/02/2017 [facility] of Care 134 mg/dL High 70-100 97 finding Glucose Laboratory test 08/02/2017 [facility] of Care 85 mg/dL 70-100 98 finding Glucose Laboratory test 07/30/2017 [facility] 91 mg/dL 70-100 99 finding Glucose Laboratory test 07/30/2017 [facility] of [facility] 131 mg/dL High 70-100 100 finding Glucose Laboratory test 07/29/2017 [facility] 133 mg/dL High 70-100 101 finding Glucose Laboratory test 07/29/2017 [facility] of Care 167 mg/dL High 70-100 102 finding Glucose Laboratory test 07/28/2017 [facility] of Care 98 mg/dL 70-100 103 finding Glucose Laboratory test 07/28/2017 [facility] of Care 158 mg/dL High 70-100 104 finding Glucose Laboratory test 07/27/2017 [facility] of Care 150 mg/dL High 70-100 105 finding Glucose Laboratory test 07/26/2017 [facility] of Care 123 mg/dL High 70-100 106 finding Glucose Laboratory test 07/26/2017 [facility] of Care 127 mg/dL High 70-100 107 finding Glucose Laboratory test 07/22/2017 Point of Care 125 mg/dL High 70-100 108 finding Glucose Laboratory test 07/22/2017 [facility] of Care 123 mg/dL High 70-100 109 finding Glucose Laboratory test 07/21/2017 [facility] of Care 130 mg/dL High 70-100 110 finding Glucose Laboratory test 07/21/2017 [facility] of Care 119 mg/dL High 70-100 111 finding Glucose Laboratory test 07/21/2017 [facility] of Care 118 mg/dL High 70-100 112 finding Glucose Laboratory test 07/20/2017 [facility] of Care 114 mg/dL High 70-100 113 finding Glucose Laboratory test 07/20/2017 Point of Care 151 mg/dL High 70-100 114 finding Glucose Laboratory test 07/19/2017 [facility] of Care 100 mg/dL 70-100 115 finding Glucose Laboratory test 07/19/2017 [facility] of Care 137 mg/dL High 70-100 116 finding Glucose Laboratory test 07/15/2017 [facility] of Care 121 mg/dL High 70-100 117 finding Glucose Laboratory test 07/15/2017 [facility] of Care 132 mg/dL High 70-100 118 finding Glucose Laboratory test 07/15/2017 [facility] of Care 108 mg/dL High 70-100 119 finding Glucose Laboratory test 07/14/2017 [facility] of Care 120 mg/dL High 70-100 120 finding Glucose Laboratory test 07/14/2017 [facility] of Care 109 mg/dL High 70-100 121 finding Glucose Laboratory test 07/13/2017 [facility] of Care 111 mg/dL High 70-100 122 finding Glucose Laboratory test 07/13/2017 [facility] of Care 145 mg/dL High 70-100 123 finding Glucose Laboratory test 07/12/2017 [facility] of Care 117 mg/dL High 70-100 124 finding Glucose Laboratory test 07/12/2017 [facility] of Care 134 mg/dL High 70-100 125 finding Glucose Laboratory test 07/12/2017 [facility] of Care 108 mg/dL High 70-100 126 finding Glucose Laboratory test 07/05/2017 [facility] of Care 99 mg/dL 70-100 127 finding Glucose Laboratory test 07/05/2017 [facility] of Care 129 mg/dL High 70-100 128 finding Glucose Laboratory test 07/02/2017 [facility] of Care 99 mg/dL 70-100 129 finding Glucose Laboratory test 07/02/2017 [facility] of Care 172 mg/dL High 70-100 130 finding Glucose Laboratory test 07/01/2017 [facility] of Care 105 mg/dL High 70-100 131 finding Glucose Laboratory test 07/01/2017 [facility] of Care 151 mg/dL High 70-100 132 finding Glucose Laboratory test 06/30/2017 [facility] of Care 123 mg/dL High 70-100 133 finding Glucose Laboratory test 06/30/2017 [facility] of Care 153 mg/dL High 70-100 134 finding Glucose Laboratory test 06/29/2017 [facility] 122 mg/dL High 70-100 135 finding Glucose Laboratory test 06/29/2017 [facility] of Care 100 mg/dL 70-100 136 finding Glucose Laboratory test 06/29/2017 [facility] of Care 140 mg/dL High 70-100 137 finding Glucose Laboratory test 06/28/2017 [facility] of Care 115 mg/dL High 70-100 138 finding Glucose Laboratory test 06/28/2017 [facility] of Care 160 mg/dL High 70-100 139 finding Glucose Laboratory test 06/25/2017 [facility] of Care 120 mg/dL High 70-100 140 finding Glucose Laboratory test 06/25/2017 Point of Care 161 mg/dL High 70-100 141 finding Glucose Laboratory test 06/24/2017 [facility] of Care 105 mg/dL High 70-100 142 finding Glucose Laboratory test 06/24/2017 [facility] of Care 145 mg/dL High 70-100 143 finding Glucose Laboratory test 06/23/2017 [facility] 123 mg/dL High 70-100 144 finding Glucose Laboratory test 06/23/2017 [facility] of Care 117 mg/dL High 70-100 145 finding Glucose Laboratory test 05/31/2017 Prealbumin 14 mg/dL Low 18-38 finding Vitamin B12 477 pg/mL 180-914 146 Vitamin D Total 25(Oh) 34.8 ng/mL 20-50 Laboratory test 04/30/2017 Point of Care 104 mg/dL High 70-100 147 finding Glucose Laboratory test 04/13/2017 Surgical Pathology SEE RESULT BELOW 148 finding Laboratory test 04/11/2017 Partial Thrombo 40.0 seconds High 26.0-36.3 finding Time PTT Inr/Protime 04/11/2017 Inr 1.36 High 0.77-1.02 149 Comp Metabolic Panel 04/11/2017 Sodium 127 mmol/L Low 133-145 Potassium 3.7 mmol/L 3.5-5.0 Chloride 91 mmol/L Low 101-111 Co2 Carbon Dioxide 27 mmol/L 22-32 Anion Gap 9 mmol/L 2-11 Glucose 105 mg/dL High 70-100 Blood Urea Nitrogen 16 mg/dL 6-24 Creatinine 0.94 mg/dL 0.67-1.17 BUN/Creatinine Ratio 17.0 8-20 Calcium 9.7 mg/dL 8.6-10.3 Total Protein 7.2 g/dL 6.4-8.9 Albumin 3.5 g/dL 3.2-5.2 Globulin 3.7 g/dL 2-4 Albumin/Globulin Ratio 0.9 Low 1-3 Total Bilirubin 0.80 mg/dL 0.2-1.0 Alkaline Phosphatase 137 U/L High 34-104 Alt 29 U/L 7-52 Ast 32 U/L 13-39 Egfr Non- 79.6 >60 Egfr 102.3 >60 150 Laboratory test finding 04/11/2017 Lactic Acid 2.2 mmol/L High 0.5-2.0 151 Urinalysis Profile 04/11/2017 Urine Color Yellow Urine Appearance Clear Urine Specific [place] 1.005 Low 1.010-1.030 Urine pH 6.0 5-9 Urine Urobilinogen Negative Negative Urine Ketones Trace Negative Urine Protein Negative Negative Urine Leukocytes Negative Negative Urine Blood Negative Negative Urine Nitrite Negative Negative Urine Bilirubin Negative Negative Urine Glucose Negative Negative CBC Auto Diff 04/11/2017 White Blood Count 9.8 10^3/uL 3.5-10.8 Red Blood Count 4.10 10^6/uL 4.0-5.4 Hemoglobin 14.5 g/dL 14.0-18.0 Hematocrit 41 % Low 42-52 Mean Corpuscular Volume 99 fL High 80-94 Mean Corpuscular Hemoglobin 35 pg High 27-31 Mean Corpuscular HGB Conc 36 g/dL 31-36 Red Cell Distribution Width 14 % 10.5-15 Platelet Count 180 10^3/uL 150-450 Mean Platelet Volume 9 um3 7.4-10.4 Abs Neutrophils 7.7 10^3/uL 1.5-7.7 Abs Lymphocytes 0.7 10^3/uL Low 1.0-4.8 Abs Monocytes 1.2 10^3/uL High 0-0.8 Abs Eosinophils 0.1 10^3/uL 0-0.6 Abs Basophils 0.1 10^3/uL 0-0.2 Abs Nucleated RBC 0 10^3/uL Granulocyte % 78.9 % 38-83 Lymphocyte % 6.9 % Low 25-47 Monocyte % 12.6 % High 1-9 Eosinophil % 0.6 % 0-6 Basophil % 1.0 % 0-2 Nucleated Red Blood Cells % 0 Laboratory test finding 04/11/2017 Blood Culture SEE RESULT BELOW 152 Laboratory test finding 01/25/2017 Surgical Pathology SEE RESULT BELOW 153 Laboratory test finding 07/16/2016 Hemoglobin A1c 5.5 5-7 Urine Microalbumin Random 07/15/2016 Urine Creatinine 46.19 mg/dL Ur Microalbumin (mg/L) 61.9 mg/L Urine Microalbumin/Creatinine 134.0 ug/mg High <31 Comp Metabolic Panel 07/15/2016 Sodium 138 mmol/L 133-145 Potassium 4.0 mmol/L 3.5-5.0 Chloride 102 mmol/L 101-111 Co2 Carbon Dioxide 28 mmol/L 22-32 Anion Gap 8 mmol/L 2-11 Glucose 124 mg/dL High 70-100 Blood Urea Nitrogen 15 mg/dL 6-24 Creatinine 0.90 mg/dL 0.67-1.17 BUN/Creatinine Ratio 16.7 8-20 Calcium 9.2 mg/dL 8.6-10.3 Total Protein 6.6 g/dL 6.4-8.9 Albumin 3.7 g/dL 3.2-5.2 Globulin 2.9 g/dL 2-4 Albumin/Globulin Ratio 1.3 1-3 Total Bilirubin 1.50 mg/dL High 0.2-1.0 Alkaline Phosphatase 126 U/L High 34-104 Alt 14 U/L 7-52 Ast 19 U/L 13-39 Egfr Non- 83.9 >60 Egfr 107.9 >60 154 Lipid Profile (Trig/Chol/HDL) 07/15/2016 Triglycerides 159 mg/dL 155 Cholesterol 147 mg/dL 156 HDL Cholesterol 42.9 mg/dL 157 LDL Cholesterol 72 mg/dL 158 Laboratory test 02/26/2016 Hemoglobin A1c 5.8 5-7 finding Wound Culture/Sensi 12/27/2015 Wound/Misc SEE RESULT 159, 160 Culture-Gram Stain BELOW Laboratory test 12/27/2015 MRSA/S. aureus Ssti SEE RESULT 159, 161 finding PCR BELOW Laboratory test 05/28/2015 Hemoglobin A1c 5.5 5-7 finding Laboratory test 10/09/2014 B-Type Natriuretic 230 pg/mL High 162 finding Peptide BNP Lipid Profile 10/09/2014 Triglycerides 96 mg/dL 163 (Trig/Chol/HDL) Cholesterol 123 mg/dL 164 HDL Cholesterol 36.4 mg/dL 165 LDL Cholesterol 67 mg/dL 166 Urine Microalbumin Random 10/09/2014 Ur Microalbumin (mg/L) < 5.0 mg/L Urine Creatinine 106.84 mg/dL Urine Microalbumin/Creatinine TNP ug/mg <31 167 Laboratory test finding 09/25/2014 Hemoglobin A1c 5.4 5-7 CBC Auto Diff 09/24/2014 White Blood Count 8.2 10^3/uL 4.8-10.8 Red Blood Count 4.81 10^6/uL 4.0-5.4 Hemoglobin 15.1 g/dL 14.0-18.0 Hematocrit 47 % 42-52 Mean Corpuscular Volume 97 fL High 80-94 Mean Corpuscular Hemoglobin 31 pg 27-31 Mean Corpuscular HGB Conc 32 g/dL 31-36 Red Cell Distribution Width 16 % High 10.5-15 Platelet Count 168 10^3/uL 150-450 Mean Platelet Volume 10 um3 7.4-10.4 Abs Neutrophils 5.9 10^3/uL 1.5-7.7 Abs Lymphocytes 1.0 10^3/uL 1.0-4.8 Abs Monocytes 1.0 10^3/uL High 0-0.8 Abs Eosinophils 0.2 10^3/uL 0-0.6 Abs Basophils 0.1 10^3/uL 0-0.2 Abs Nucleated RBC 0 10^3/uL Granulocyte % 72.5 % 38-83 Lymphocyte % 12.7 % Low 25-47 Monocyte % 12.1 % High 1-9 Eosinophil % 2.0 % 0-6 Basophil % 0.7 % 0-2 Nucleated Red Blood Cells % 0.1 Comp Metabolic Panel 09/24/2014 Sodium 138 mmol/L 133-145 Potassium 4.9 mmol/L 3.5-5.0 Chloride 98 mmol/L Low 101-111 Co2 Carbon Dioxide 33 mmol/L High 22-32 Anion Gap 7 mmol/L 2-11 Glucose 100 mg/dL 70-100 Blood Urea Nitrogen 20 mg/dL 6-24 Creatinine 0.96 mg/dL 0.67-1.17 BUN/Creatinine Ratio 20.8 High 8-20 Calcium 10.1 mg/dL 8.6-10.3 Total Protein 6.4 g/dL 6.4-8.9 Albumin 3.8 g/dL 3.2-5.2 Globulin 2.6 g/dL 2-4 Albumin/Globulin Ratio 1.5 1-3 Total Bilirubin 0.50 mg/dL 0.2-1.0 Alkaline Phosphatase 81 U/L 34-104 Alt 23 U/L 7-52 Ast 38 U/L 13-39 Egfr Non- 78.4 >60 Egfr 100.8 >60 168 Urine Microalbumin Random 10/10/2013 Ur Microalbumin (mg/L) 5.0 mg/dL < 30 169 Urine Creatinine 156.07 mg/dL Urine Microalbumin/Creatinine 3.2 Less Than 31 Comp Metabolic Panel 10/05/2013 Sodium 140 mmol/L 133-145 170 Potassium 3.9 mmol/L 3.7-5.6 170 Chloride 104 mmol/L 101-111 170 Co2 Carbon Dioxide 30 mmol/L 22-32 170 Anion Gap 6 mmol/L 2-11 170 Glucose 98 mg/dL 70-100 170 Blood Urea Nitrogen 15 mg/dL 6-24 170 Creatinine 0.94 mg/dL 0.67-1.17 170 BUN/Creatinine Ratio 16.0 8-20 170 Calcium 9.0 mg/dL 8.6-10.3 170 Total Protein 6.5 g/dL 6.4-8.9 170 Albumin 3.8 g/dL 3.2-5.2 170 Globulin 2.7 g/dL 2-4 170 Albumin/Globulin Ratio 1.4 1-3 170 Total Bilirubin 1.00 mg/dL 0.2-1.0 170 Alkaline Phosphatase 110 U/L High 34-104 170 Alt 20 U/L 7-52 170 Ast 20 U/L 13-39 170 Egfr Non- 80.5 >60 170 Egfr 103.6 >60 170, 171 Lipid Profile (Trig/Chol/HDL) 10/05/2013 Triglycerides 133 mg/dL 170, 172 Cholesterol 123 mg/dL 170, 173 HDL Cholesterol 29.4 mg/dL 170, 174 LDL Cholesterol 67 mg/dL 170, 175 Laboratory test 10/05/2013 Hepatitis C Nonreactive Nonreactive 170, 176 finding Antibody Laboratory test 10/05/2013 Hemoglobin A1c 5.2 % Less than 6.0 170, 177 finding CBC Auto Diff 10/05/2013 White Blood Count 7.2 10^3/uL 4.8-10.8 170 Red Blood Count 4.63 10^6/uL 4.0-5.4 170 Hemoglobin 15.0 g/dL 14.0-18.0 170 Hematocrit 44 % 42-52 170 Mean Corpuscular Volume 96 fL High 80-94 170 Mean Corpuscular Hemoglobin 33 pg High 27-31 170 Mean Corpuscular HGB Conc 34 g/dL 31-36 170 Red Cell Distribution Width 16 % High 10.5-15 170 Platelet Count 177 10^3/uL 150-450 170 Mean Platelet Volume 10 um3 7.4-10.4 170 Abs Neutrophils 4.6 10^3/uL 1.5-7.7 170 Abs Lymphocytes 1.5 10^3/uL 1.0-4.8 170 Abs Monocytes 0.9 10^3/uL High 0-0.8 170 Abs Eosinophils 0.2 10^3/uL 0-0.6 170 Abs Basophils 0.1 10^3/uL 0-0.2 170 Abs Nucleated RBC 0.01 10^3/uL 170 Granulocyte % 64.3 % 38-83 170 Lymphocyte % 20.4 % Low 25-47 170 Monocyte % 12.1 % High 1-9 170 Eosinophil % 2.1 % 0-6 170 Basophil % 1.1 % 0-2 170 Nucleated Red Blood Cells % 0.1 170 Laboratory test finding 02/06/2013 Hemoglobin A1c 5.0 5-7 Wound Culture/Sensi 06/28/2012 Wound/Misc Culture-Gram (SEE NOTE) 178 Stain Urine Microalbumin Random 03/31/2012 Ur Microalbumin (Mg/L) 4.0 mg/L 179 Urine Creatinine 90.6 mg/dL Urine Microalbumin/Creatinine 4.4 UG/MG Less Than 31 Laboratory test finding 03/31/2012 Hemoglobin A1c 5.6 5-7 Laboratory test finding 03/30/2012 Creatine Kinase 114 U/L 0-200 Liver Function Panel 03/30/2012 Total Protein 6.6 g/dL 6.2-8.1 Albumin 3.7 g/dL 3.2-5.2 Globulin 2.9 g/dL 2-4 Albumin/Globulin Ratio 1.3 1-3 Total Bilirubin 0.9 mg/dL 0.4-1.5 Direct Bilirubin 0.1 mg/dL 0.1-0.5 Indirect Bilirubin 0.8 mg/dL 0.3-1.0 Alkaline Phosphatase 142 U/L High 30-110 Alt 18 U/L 14-54 Ast 22 U/L 12-42 Laboratory test finding 12/10/2011 Hemoglobin A1c 7.1 High 5-7 Lipid Profile (Trig/Chol/HDL) 12/09/2011 Triglyceride 161 mg/dL 40-200 Cholesterol 169 mg/dL Less Than 200 180 High Density Lipoprotein 34 mg/dL Low 40-60 181 Cholesterol/HDL Ratio 4.97 AVERAGE 1-4.97 Low Density Lipoprotein 103 mg/dL High Less Than 100 182 Basic Metabolic Panel 12/09/2011 Sodium 139 mmol/L 135-145 Potassium 4.0 mmol/L 3.5-5.0 Chloride 104 mmol/L 101-111 Co2 (Carbon Dioxide) 31.0 mmol/L 22-32 Anion Gap 4.0 mmol/L 2-11 183 Glucose 134 mg/dL High 70-100 BUN 11 mg/dL 6-24 Creatinine 1.0 mg/dL 0.50-1.40 One Over Creatinine 1.00 BUN/Creatinine Ratio 11.0 8-20 Calcium 8.5 mg/dL 8.1-9.9 eGFR Non- 75.5 > 60 eGFR 97.1 > 60 184 Laboratory test finding 12/09/2011 PSA 1.01 NG/ML 0-4 185 Culture And Sensitivity 03/07/2011 M <SEE NOTE> 186 Culture And Sensitivity 03/07/2011 M <SEE NOTE> 187 Culture And Sensitivity 03/07/2011 M <SEE NOTE> 188 DR Akins's Lab Panel 06/03/2010 TSH 3.12 MIU/ML 0.34-5.60 CMP Panel 06/03/2010 Sodium 139 mmol/L 135-145 Potassium 3.8 mmol/L 3.5-5.0 Chloride 103 mmol/L 101-111 Co2 (Carbon Dioxide) 31.0 mmol/L 22-32 Anion Gap 5.0 mmol/L 2-11 189 Glucose 131 mg/dL High 70-100 BUN 13 mg/dL 6-24 Creatinine 0.90 mg/dL 0.50-1.40 One Over Creatinine 1.10 BUN/Creatinine Ratio 14.4 8-20 Calcium 8.5 mg/dL 8.1-9.9 Total Protein 6.1 GM/DL Low 6.2-8.1 Albumin 3.4 GM/DL 3.2-5.2 Globulin 2.7 GM/DL 2-4 Albumin/Globulin Ratio 1.3 1-3 Bilirubin Total 0.7 mg/dL 0.4-1.5 190 Alkaline Phosphatase 107 U/L 39-117 Alt (SGPT) 18 U/L 17-63 Ast (Sgot) 20 U/L 12-42 eGFR Non- 85.5 > 60 eGFR 110.0 > 60 191 Lipid Panel 06/03/2010 Triglyceride 125 mg/dL 40-200 Cholesterol 233 mg/dL High Less Than 200 192 High Density Lipoprotein 37 mg/dL Low 40-60 193 Cholesterol/HDL Ratio 6.30 AVERAGE High 1-4.97 Low Density Lipoprotein 171 mg/dL High Less Than 100 194 CBC W/Electronic Diff 06/03/2010 White Blood Count 7.6 CUMM 4.8-10.8 Red Cell Count 4.72 CUMM 4.6-6.2 Hemoglobin 15.5 g/dL 14.0-18.0 Hematocrit 46 % 42-52 Mean Corpuscular Volume 97 um3 High 80-94 Mean Corpuscular Hemoglob 33 pg High 27-31 Mean Corpuscular HGB Cone 34 g/dL 32-36 Redcell Distribution WDTH 14 % 10.5-15 Platelet Count 181 CUMM 150-450 Mean Platelet Volume 9.9 um3 7.4-10.4 195 Manual Differential 06/03/2010 Polysegmented Neutrophil 55 % 38-83 Lymphocyte 21 % Low 25-47 Monocyte 16 % High 0-13 Eosinophil 6 % 0-6 Basophil 1 % 0-2 Atypical Lymph 1 % 0-6 Absolute Neutrophil Count 4.1 Anisocytosis SLIGHT Macrocytosis SLIGHT Platelet Evaluation LARGE Laboratory test finding 06/03/2010 PSA Screening 0.43 NG/ML 0-4 196 Surgical Pathology 11/23/2008 Surgical Pathology 197 <SEE NOTE> Comp Metabolic Panel 10/17/2008 Sodium 138 mmol/L 135-145 170 Potassium 4.2 mmol/L 3.5-5.0 170 Chloride 102 mmol/L 101-111 170 Co2 (Carbon Dioxide) 30.0 mmol/L 22-32 170 Anion Gap 6.0 mmol/L 2-11 170, 198 Glucose 81 mg/dL 70-100 170, 199 BUN 7 mg/dL 6-24 170 Creatinine 0.80 mg/dL 0.50-1.40 170 One Over Creatinine 1.20 170 BUN/Creatinine Ratio 8.8 8-20 170 Calcium 8.7 mg/dL 8.1-9.9 170, 200 Total Protein 5.3 GM/DL Low 6.2-8.1 170 Albumin 2.9 GM/DL Low 3.2-5.2 170 Globulin 2.4 GM/DL 2-4 170 Albumin/Globulin Ratio 1.2 1-3 170 Bilirubin Total 0.7 mg/dL 0.4-1.5 170, 201 Alkaline Phosphatase 86 U/L 39-117 170 Alt (SGPT) 21 U/L 17-63 170 Ast (Sgot) 22 U/L 12-42 170 eGFR Non- 104.8 > 60 170 eGFR 126.8 > 60 170, 202 Lipid Profile (Trig/Chol/HDL) 10/17/2008 Triglyceride 130 mg/dL 40-200 170 Cholesterol 234 mg/dL High Less Than 200 170, 203 High Density Lipoprotein 41 mg/dL 40-60 170, 204 Cholesterol/HDL Ratio 5.71 AVERAGE High 1-4.97 170 Low Density Lipoprotein 167 mg/dL High Less Than 100 170, 205 Liver Function Panel 10/17/2008 Bilirubin Direct 0.1 mg/dL 0.1-0.5 170 Indirect Bilirubin 0.6 mg/dL 0.1-0.75 170 Laboratory test finding 10/17/2008 Hemoglobin A1c 5.0 % <6.0 170, 206 Comp Metabolic Panel 08/07/2008 Sodium 144 mmol/L 135-145 Potassium 4.5 mmol/L 3.5-5.0 Chloride 108 mmol/L 101-111 Co2 (Carbon Dioxide) 28.0 mmol/L 22-32 Anion Gap 8.0 mmol/L 2-11 207 Glucose 94 mg/dL 70-100 208 BUN 10 mg/dL 6-24 Creatinine 0.80 mg/dL 0.50-1.40 One Over Creatinine 1.20 BUN/Creatinine Ratio 12.5 8-20 Calcium 8.6 mg/dL 8.1-9.9 209 Total Protein 5.5 GM/DL Low 6.2-8.1 Albumin 2.5 GM/DL Low 3.2-5.2 Globulin 3.0 GM/DL 2-4 Albumin/Globulin Ratio 0.8 Low 1-3 Bilirubin Total 2.7 mg/dL High 0.4-1.5 Alkaline Phosphatase 407 U/L High 39-117 Alt (SGPT) 164 U/L High 17-63 Ast (Sgot) 203 U/L High 12-42 Iron & Iron Binding Capacity 08/07/2008 Iron Total 77 g/dL 45-182 Unsaturated Iron Binding 146 g/dL Total Iron Binding Capacity 223 g/dL Low 250-450 % Iron Saturation 35 % 15-55 Laboratory test finding 08/07/2008 Vitamin B12 1018 pg/mL High 180-914 Folic Acid 14.4 NG/ML 2-16 Alcohol < 10.0 mg/dL None Detected 210 Hepatitis B Surface Ag NEGATIVE Negative Hepatitis B Core Igm NEGATIVE Negative Hepatitis A AB Igm NEGATIVE Negative Hepatitis C Antibody NEGATIVE Negative CBC With Electronic Diff Stat 07/25/2008 White Blood Count 7.2 CUMM 4.8- 10.8 Red Cell Count 4.70 CUMM 4.6-6.2 Hemoglobin 16.1 g/dL 14.0-18.0 Hematocrit 46 % 42-52 Mean Corpuscular Volume 98 um3 High 80-94 Mean Corpuscular Hemoglob 34 pg High 27-31 Mean Corpuscular HGB Cone 35 g/dL 32-36 Redcell Distribution WDTH 17 % High 10.5-15 Platelet Count 125 CUMM Low 150-450 Mean Platelet Volume 10.1 um3 7.4-10.4 Gran % 70.2 % 38-83 Lymph % 18.2 % Low 25-47 Mononuclear % 9.6 % High 1-9 Eosinophil % 0.3 % 0-6 Basophil % 1.7 % 0-2 Abs Lymphs 1.3 1.0-4.8 Abs Mononuclear 0.7 0-0.8 Absolute Neutrophil Count 5.0 1.5-7.7 Abs Eosinophils 0 0-0.6 Abs Basophils 0.1 0-0.2 211 P33S 07/25/2008 Sodium 134 mmol/L Low 135-145 Potassium 4.4 mmol/L 3.5-5.0 Chloride 96 mmol/L Low 101-111 Co2 (Carbon Dioxide) 27.0 mmol/L 22-32 Anion Gap 11.0 mmol/L 2-11 212 Glucose 95 mg/dL 70-100 213 BUN 20 mg/dL 6-24 Creatinine 1.00 mg/dL 0.50-1.40 One Over Creatinine 1.00 BUN/Creatinine Ratio 20.0 8-20 Calcium 8.9 mg/dL 8.1-9.9 214 Total Protein 5.4 GM/DL Low 6.2-8.1 Albumin 2.9 GM/DL Low 3.2-5.2 Globulin 2.5 GM/DL 2-4 Albumin/Globulin Ratio 1.2 1-3 Bilirubin Total 3.4 mg/dL High 0.4-1.5 Alkaline Phosphatase 382 U/L High 39-117 Alt (SGPT) 555 U/L High 17-63 215 Ast (Sgot) 1013 U/L High 12-42 216 Laboratory test finding 07/25/2008 Lipase 46 U/L 22-51 Troponin-I (TnI) 0.04 NG/ML 0-0.06 217 Laboratory test finding 03/12/2008 PSA,Diagnostic 0.38 NG/ML 0-4 218 Comp Metabolic Panel 12/29/2007 Sodium 140 mmol/L 135-145 219 Potassium 5.2 mmol/L High 3.5-5.0 219 Chloride 105 mmol/L 101-111 219 Co2 (Carbon Dioxide) 33.0 mmol/L High 22-32 219 Anion Gap 2.0 mmol/L 2-11 219, 220 Glucose 91 mg/dL 70-100 219, 221 BUN 13 mg/dL 6-24 219 Creatinine 0.9 mg/dL 0.5-1.4 219 One Over Creatinine 1.11 219 BUN/Creatinine Ratio 14.4 8-20 219 Calcium 9.3 mg/dL 8.1-9.9 219, 222 Total Protein 6.3 GM/DL 6.2-8.1 219 Albumin 3.4 GM/DL Low 3.6-5.4 219 Globulin 2.9 GM/DL 2-4 219 Albumin/Globulin Ratio 1.2 1-3 219 Bilirubin Total 0.4 mg/dL 0.4-1.5 219 Alkaline Phosphatase 99 U/L 39-117 219 Alt (SGPT) 40 U/L 17-63 219 Ast (Sgot) 35 U/L -42 219 Basic Metabolic Panel 12/06/2007 Sodium 138 mmol/L 135-145 Potassium 4.3 mmol/L 3.5-5.0 Chloride 101 mmol/L 101-111 Co2 (Carbon Dioxide) 33.0 mmol/L High 22-32 Anion Gap 4.0 mmol/L 2-11 223 Glucose 87 mg/dL 70-100 224 BUN 22 mg/dL 6-24 Creatinine 1.0 mg/dL 0.5-1.4 One Over Creatinine 1.00 BUN/Creatinine Ratio 22.0 High 8-20 Calcium 9.1 mg/dL 8.1-9.9 225 Liver Function Panel 12/06/2007 Total Protein 6.3 GM/DL 6.2-8.1 Albumin 3.5 GM/DL Low 3.6-5.4 Globulin 2.8 GM/DL 2-4 Albumin/Globulin Ratio 1.3 1-3 Bilirubin Total 0.8 mg/dL 0.4-1.5 Bilirubin Direct 0.2 mg/dL 0.1-0.5 Indirect Bilirubin 0.6 mg/dL 0.1-0.75 Alkaline Phosphatase 104 U/L 39-117 Alt (SGPT) 80 U/L High 17-63 Ast (Sgot) 72 U/L High 12-42 Laboratory test finding 12/06/2007 GGTP 122 U/L High 7-50 Vitamin B12 341 pg/mL 180-914 Folic Acid 11.1 NG/ML 2-16 Alcohol < 10.0 mg/dL None Detected 226 Thyroxine Free 0.68 NG/ML 0.61-1.24 227 TSH 2.54 MIU/ML 0.34-5.60 Hemoglobin A1c 5.3 % <6.0 228 Protime 12/01/2007 Protime 11.7 10.9-13.3 Inr 0.93 229 Laboratory test finding 12/01/2007 PTT (Aptt) Stat 22.6 20.1-28.2 230 CBC With Electronic Diff Stat 12/01/2007 White Blood Count 9.9 CUMM 4.8- 10.8 Red Cell Count 4.40 CUMM Low 4.6-6.2 Hemoglobin 15.3 g/dL 14.0-18.0 Hematocrit 44 % 42-52 Mean Corpuscular Volume 99 um3 High 80-94 Mean Corpuscular Hemoglob 35 pg High 27-31 Mean Corpuscular HGB Cone 35 g/dL 32-36 Redcell Distribution WDTH 13 % 10.5-15 Platelet Count 187 CUMM 150-450 Mean Platelet Volume 8.8 um3 7.4-10.4 Gran % 79.3 % 38-83 Lymph % 9.0 % Low 20-45 Mononuclear % 11.3 % High 1-9 Eosinophil % 0.2 % 0-6 Basophil % 0.2 % 0-2 Abs Lymphs 0.9 Low 1.0-4.8 Abs Mononuclear 1.1 High 0-0.8 Absolute Neutrophil Count 7.8 High 1.5-7.7 Abs Eosinophils 0 0-0.6 Abs Basophils 0 0-0.2 231 P33S 12/01/2007 Sodium 140 mmol/L 135-145 Potassium 3.9 mmol/L 3.5-5.0 Chloride 99 mmol/L Low 101-111 Co2 (Carbon Dioxide) 30.0 mmol/L 22-32 Anion Gap 11.0 mmol/L 2-11 232 Glucose 127 mg/dL High 70-100 233 BUN 19 mg/dL 6-24 Creatinine 1.0 mg/dL 0.5-1.4 One Over Creatinine 1.00 BUN/Creatinine Ratio 19.0 8-20 Calcium 9.6 mg/dL 8.1-9.9 234 Total Protein 7.3 GM/DL 6.2-8.1 Albumin 3.9 GM/DL 3.6-5.4 Globulin 3.4 GM/DL 2-4 Albumin/Globulin Ratio 1.1 1-3 Bilirubin Total 1.0 mg/dL 0.4-1.5 Alkaline Phosphatase 106 U/L 39-117 Alt (SGPT) 71 U/L High 17-63 Ast (Sgot) 83 U/L High 12-42 Laboratory test finding 12/01/2007 Troponin-I (TnI) 0.02 NG/ML 0-0.06 235 CBC With Electronic Diff Stat 10/19/2007 White Blood Count 6.8 CUMM 4.8- 10.8 Red Cell Count 3.72 CUMM Low 4.6-6.2 Hemoglobin 13.3 g/dL Low 14.0-18.0 Hematocrit 37 % Low 42-52 Mean Corpuscular Volume 100 um3 High 80-94 Mean Corpuscular Hemoglob 36 pg High 27-31 Mean Corpuscular HGB Cone 36 g/dL 32-36 Redcell Distribution WDTH 13 % 10.5-15 Platelet Count 197 CUMM 150-450 Mean Platelet Volume 7.5 um3 7.4-10.4 Gran % 50.6 % 38-83 Lymph % 29.6 % 20-45 Mononuclear % 14.2 % High 1-9 Eosinophil % 3.2 % 0-6 Basophil % 2.0 % 0-2 Abs Lymphs 2.0 1.0-4.8 Abs Mononuclear 1.0 High 0-0.8 Absolute Neutrophil Count 3.4 1.5-7.7 Abs Eosinophils 0.2 0-0.6 Abs Basophils 0.2 0-0.2 DS3 10/19/2007 Amphetamines Urine Screen NONE DETECTED None Detect Barbituates Urine Screen NONE DETECTED None Detect Benzodiazepine Ur Screen NONE DETECTED None Detect Cannabinoid Urine Screen NONE DETECTED None Detect Cocaine Metabolites Urine NONE DETECTED None Detect Opiates Urine Screen POSITIVE None Detect PCP Urine Screen NONE DETECTED None Detect 236 P33S 10/19/2007 Sodium 141 mmol/L 135-145 Potassium 4.8 mmol/L 3.5-5.0 Chloride 108 mmol/L 101-111 Co2 (Carbon Dioxide) 28.0 mmol/L 22-32 Anion Gap 5.0 mmol/L 2-11 237 Glucose 80 mg/dL 70-105 BUN 24 mg/dL 6-24 Creatinine 1.1 mg/dL 0.5-1.4 One Over Creatinine 0.90 BUN/Creatinine Ratio 21.8 High 8-20 Calcium 7.3 mg/dL Low 8.1-9.9 238 Total Protein 5.7 GM/DL Low 6.2-8.1 Albumin 3.0 GM/DL Low 3.6-5.4 Globulin 2.7 GM/DL 2-4 Albumin/Globulin Ratio 1.1 1-3 Bilirubin Total 1.0 mg/dL 0.4-1.5 Alkaline Phosphatase 82 U/L 39-117 Alt (SGPT) 28 U/L 17-63 Ast (Sgot) 53 U/L High 12-42 Alcohol Stat 10/19/2007 Alcohol 374.5 mg/dL High None Detected 239 Basic Metabolic Panel 10/07/2007 Sodium 141 mmol/L 135-145 240 Potassium 4.2 mmol/L 3.5-5.0 240 Chloride 105 mmol/L 101-111 240 Co2 (Carbon Dioxide) 31.0 mmol/L 22-32 240 Anion Gap 5.0 mmol/L 2-11 240, 241 Glucose 91 mg/dL 70-105 240 BUN 25 mg/dL High 6-24 240 Creatinine 0.9 mg/dL 0.5-1.4 240 One Over Creatinine 1.11 240 BUN/Creatinine Ratio 27.8 High 8-20 240 Calcium 8.9 mg/dL 8.1-9.9 240, 242 CBC With Manual Diff 10/07/2007 White Blood Count 5.8 CUMM 4.8-10.8 240 Red Cell Count 4.10 CUMM Low 4.6-6.2 240 Hemoglobin 14.4 g/dL 14.0-18.0 240 Hematocrit 41 % Low 42-52 240 Mean Corpuscular Volume 100 um3 High 80-94 240 Mean Corpuscular Hemoglob 35 pg High 27-31 240 Mean Corpuscular HGB Cone 35 g/dL 32-36 240 Redcell Distribution WDTH 13 % 10.5-15 240 Platelet Count 263 CUMM 150-450 240 Mean Platelet Volume 8.7 um3 7.4-10.4 240 Polysegmented Neutrophil 71 % 38-83 240 Lymphocyte 16 % 5-47 240 Monocyte 11 % 0-13 240 Eosenophil 2 % 0-6 240 Absolute Neutrophil Count 4.1 240 Macrocytosis SLIGHT 240 CBC With Electronic Diff Stat 09/27/2007 White Blood Count 9.0 CUMM 4.8- 10.8 Red Cell Count 4.34 CUMM Low 4.6-6.2 Hemoglobin 14.9 g/dL 14.0-18.0 Hematocrit 44 % 42-52 Mean Corpuscular Volume 101 um3 High 80-94 Mean Corpuscular Hemoglob 34 pg High 27-31 Mean Corpuscular HGB Cone 34 g/dL 32-36 Redcell Distribution WDTH 13 % 10.5-15 Platelet Count 174 CUMM 150-450 Mean Platelet Volume 8.0 um3 7.4-10.4 Gran % 70.2 % 38-83 Lymph % 17.0 % Low 20-45 Mononuclear % 9.8 % High 1-9 Eosinophil % 1.6 % 0-6 Basophil % 1.4 % 0-2 Abs Lymphs 1.5 1.0-4.8 Abs Mononuclear 0.9 High 0-0.8 Absolute Neutrophil Count 6.4 1.5-7.7 Abs Eosinophils 0.1 0-0.6 Abs Basophils 0.1 0-0.2 P33S 09/27/2007 Sodium 139 mmol/L 135-145 Potassium 3.4 mmol/L Low 3.5-5.0 Chloride 102 mmol/L 101-111 Co2 (Carbon Dioxide) 31.0 mmol/L 22-32 Anion Gap 6.0 mmol/L 2-11 243 Glucose 101 mg/dL 70-105 BUN 15 mg/dL 6-24 Creatinine 0.9 mg/dL 0.5-1.4 One Over Creatinine 1.11 BUN/Creatinine Ratio 16.7 8-20 Calcium 8.3 mg/dL 8.1-9.9 244 Total Protein 6.5 GM/DL 6.2-8.1 Albumin 3.6 GM/DL 3.6-5.4 Globulin 2.9 GM/DL 2-4 Albumin/Globulin Ratio 1.2 1-3 Bilirubin Total 0.4 mg/dL 0.4-1.5 Alkaline Phosphatase 86 U/L 39-117 Alt (SGPT) 45 U/L 17-63 Ast (Sgot) 50 U/L High 12-42 CBC W/ Electronic Diff 01/04/2007 White Blood Count 4.7 CUMM Low 4.8-10.8 Abs Basophils 0 0-0.2 Abs Eosinophils 0.2 0-0.6 Absolute Neutrophil Count 2.5 1.5-7.7 Abs Lymphs 1.4 1.0-4.8 Abs Mononuclear 0.6 0-0.8 Basophil % 0.6 % 0-2 Hematocrit 43 % 42-52 Hemoglobin 15.0 g/dL 14.0-18.0 Eosinophil % 4.6 % 0-6 Gran % 52.8 % 38-83 Lymph % 29.2 % 20-45 Mean Corpuscular HGB Cone 35 g/dL 32-36 Mean Corpuscular Hemoglob 35 pg High 27-31 Mean Corpuscular Volume 100 um3 High 80-94 Mean Platelet Volume 9.3 um3 7.4-10.4 Mononuclear % 12.8 % High 1-9 Platelet Count 164 CUMM 150-450 Red Cell Count 4.31 CUMM Low 4.6-6.2 Redcell Distribution WDTH 14 % 10.5-15 Comp Metabolic Panel 01/04/2007 One Over Creatinine 1.11 Anion Gap 6.0 mmol/L 2-11 245 Albumin/Globulin Ratio 1.4 1-3 Albumin 3.6 GM/DL 3.6-5.4 Alkaline Phosphatase 83 U/L 39-117 Alt (SGPT) 29 U/L 17-63 Ast (Sgot) 39 U/L 12-42 BUN 14 mg/dL 6-24 Calcium 8.2 mg/dL Low 8.7-10.2 Chloride 110 mmol/L 101-111 Co2 (Carbon Dioxide) 29.0 mmol/L 22-32 Globulin 2.5 GM/DL 2-4 Glucose 81 mg/dL 70-105 Potassium 4.0 mmol/L 3.5-5.0 Sodium 145 mmol/L 135-145 Bilirubin Total 0.7 mg/dL 0.4-1.5 Total Protein 6.1 GM/DL Low 6.2-8.1 BUN/Creatinine Ratio 15.6 8-20 Creatinine 0.9 mg/dL 0.5-1.4 Lipid Profile 01/04/2007 Cholesterol/HDL Ratio 3.10 AVERAGE 1-4.97 (Trig/Chol/HDL) Cholesterol 183 mg/dL Less Than 200 246 Triglyceride 153 mg/dL 40-200 High Density Lipoprotein 59 mg/dL 40-60 Low Density Lipoprotein 93 mg/dL Less Than 100 247 Laboratory test finding 01/04/2007 TSH 2.33 MIU/ML 0.34-5.60 PSA Screening 1.04 NG/ML 0-4 248 1 F/U 2 SEE RESULTS BELOW [id number] EPIFIX 3.5 MESH TRANSFUSED 12/10/17 0927 3 Sheep Clipper: [id number] 4 Sheep Clipper: [id number] 5 Sheep Clipper: [id number] 6 Sheep Clipper: [id number] 7 Sheep Clipper: [id number] 8 Sheep Clipper: [id number] 9 Sheep Clipper: [id number] 10 Sheep Clipper: [id number] 11 Sheep Clipper: [id number] 12 Sheep Clipper: [id number] 13 Sheep Clipper: [id number] 14 Sheep Clipper: [id number] 15 Sheep Clipper: [id number] 16 Sheep Clipper: [id number] 17 Sheep Clipper: [id number] 18 Sheep Clipper: [id number] 19 Sheep Clipper: [id number] 20 Sheep Clipper: [id number] 21 Sheep Clipper: [id number] 22 Sheep Clipper: [id number] 23 Sheep Clipper: [id number] 24 Sheep Clipper: [id number] 25 Sheep Clipper: [id number] 26 Because ethnic data is not always readily available, this report includes an eGFR for both -Americans and non- Americans. The National Kidney Disease Education Program (NKDEP) does not endorse the use of the MDRD equation for patients that are not between the ages of 18 and 70, are , have extremes of body size, muscle mass, or nutritional status, or are non- or non-. According to the National Kidney Foundation, irrespective of diagnosis, the stage of the disease is based on the level of kidney function: Stage Description GFR(mL/min/1.73 m(2)) 1 Kidney damage with normal or decreased GFR 90 2 Kidney damage with mild decrease in GFR 60-89 3 Moderate decrease in GFR 30-59 4 Severe decrease in GFR 15-29 5 Kidney failure <15 (or dialysis) 27 Sheep Clipper: [id number] 28 Sheep Clipper: [id number] 29 Sheep Clipper: [id number] 30 Sheep Clipper: [id number] 31 Sheep Clipper: [id number] 32 Sheep Clipper: [id number] 33 Sheep Clipper: [id number] 34 Sheep Clipper: [id number] 35 Sheep Clipper: [id number] 36 Sheep Clipper: [id number] 37 Because ethnic data is not always readily available, this report includes an eGFR for both -Americans and non- Americans. The National Kidney Disease Education Program (NKDEP) does not endorse the use of the MDRD equation for patients that are not between the ages of 18 and 70, are , have extremes of body size, muscle mass, or nutritional status, or are non- or non-. According to the National Kidney Foundation, irrespective of diagnosis, the stage of the disease is based on the level of kidney function: Stage Description GFR(mL/min/1.73 m(2)) 1 Kidney damage with normal or decreased GFR 90 2 Kidney damage with mild decrease in GFR 60-89 3 Moderate decrease in GFR 30-59 4 Severe decrease in GFR 15-29 5 Kidney failure <15 (or dialysis) 38 Sheep Clipper: [id number] 39 Sheep Clipper: [id number] 40 Sheep Clipper: [id number] 41 Sheep Clipper: [id number] 42 Sheep Clipper: [id number] 43 Sheep Clipper: [id number] 44 Sheep Clipper: [id number] 45 Sheep Clipper: [id number] 46 Sheep Clipper: [id number] 47 Because ethnic data is not always readily available, this report includes an eGFR for both -Americans and non- Americans. The National Kidney Disease Education Program (NKDEP) does not endorse the use of the MDRD equation for patients that are not between the ages of 18 and 70, are , have extremes of body size, muscle mass, or nutritional status, or are non- or non-. According to the National Kidney Foundation, irrespective of diagnosis, the stage of the disease is based on the level of kidney function: Stage Description GFR(mL/min/1.73 m(2)) 1 Kidney damage with normal or decreased GFR 90 2 Kidney damage with mild decrease in GFR 60-89 3 Moderate decrease in GFR 30-59 4 Severe decrease in GFR 15-29 5 Kidney failure <15 (or dialysis) 48 Sheep Clipper: [id number] 49 Sheep Clipper: [id number] 50 Sheep Clipper: [id number] 51 Sheep Clipper: [id number] 52 Sheep Clipper: [id number] 53 Sheep Clipper: [id number] 54 Sheep Clipper: [id number] 55 Sheep Clipper: [id number] 56 Sheep Clipper: [id number] 57 Sheep Clipper: [id number] 58 Sheep Clipper: [id number] 59 Sheep Clipper: [id number] 60 Because ethnic data is not always readily available, this report includes an eGFR for both -Americans and non- Americans. The National Kidney Disease Education Program (NKDEP) does not endorse the use of the MDRD equation for patients that are not between the ages of 18 and 70, are , have extremes of body size, muscle mass, or nutritional status, or are non- or non-. According to the National Kidney Foundation, irrespective of diagnosis, the stage of the disease is based on the level of kidney function: Stage Description GFR(mL/min/1.73 m(2)) 1 Kidney damage with normal or decreased GFR 90 2 Kidney damage with mild decrease in GFR 60-89 3 Moderate decrease in GFR 30-59 4 Severe decrease in GFR 15-29 5 Kidney failure <15 (or dialysis) 61 Sheep Clipper: [id number] 62 Sheep Clipper: [id number] 63 Sheep Clipper: [id number] 64 Sheep Clipper: [id number] 65 Sheep Clipper: [id number] 66 Sheep Clipper: [id number] 67 Sheep Clipper: [id number] 68 Sheep Clipper: [id number] 69 Sheep Clipper: [id number] 70 Sheep Clipper: [id number] 71 Sheep Clipper: [id number] 72 Because ethnic data is not always readily available, this report includes an eGFR for both -Americans and non- Americans. The National Kidney Disease Education Program (NKDEP) does not endorse the use of the MDRD equation for patients that are not between the ages of 18 and 70, are , have extremes of body size, muscle mass, or nutritional status, or are non- or non-. According to the National Kidney Foundation, irrespective of diagnosis, the stage of the disease is based on the level of kidney function: Stage Description GFR(mL/min/1.73 m(2)) 1 Kidney damage with normal or decreased GFR 90 2 Kidney damage with mild decrease in GFR 60-89 3 Moderate decrease in GFR 30-59 4 Severe decrease in GFR 15-29 5 Kidney failure <15 (or dialysis) 73 Because ethnic data is not always readily available, this report includes an eGFR for both -Americans and non- Americans. The National Kidney Disease Education Program (NKDEP) does not endorse the use of the MDRD equation for patients that are not between the ages of 18 and 70, are , have extremes of body size, muscle mass, or nutritional status, or are non- or non-. According to the National Kidney Foundation, irrespective of diagnosis, the stage of the disease is based on the level of kidney function: Stage Description GFR(mL/min/1.73 m(2)) 1 Kidney damage with normal or decreased GFR 90 2 Kidney damage with mild decrease in GFR 60-89 3 Moderate decrease in GFR 30-59 4 Severe decrease in GFR 15-29 5 Kidney failure <15 (or dialysis) 74 Because ethnic data is not always readily available, this report includes an eGFR for both -Americans and non- Americans. The National Kidney Disease Education Program (NKDEP) does not endorse the use of the MDRD equation for patients that are not between the ages of 18 and 70, are , have extremes of body size, muscle mass, or nutritional status, or are non- or non-. According to the National Kidney Foundation, irrespective of diagnosis, the stage of the disease is based on the level of kidney function: Stage Description GFR(mL/min/1.73 m(2)) 1 Kidney damage with normal or decreased GFR 90 2 Kidney damage with mild decrease in GFR 60-89 3 Moderate decrease in GFR 30-59 4 Severe decrease in GFR 15-29 5 Kidney failure <15 (or dialysis) 75 [id number] 76 SEE RESULT BELOW Name: ALBIN LUEVANO : [address]: Bryn Barnhart MD Acct: [id number] Unit: [id number] AGE: 67 Location: [facility] Re09/28/17 SEX: M Status: REG REF SPEC: [id number] JOHNNY: 09/28/17 [facility] DR: Bryn Barnhart MD REQ: [id number] RECD: 09/28/17 STATUS: COMP _ SOURCE: TOE SPDESC: ORDERED: Culture Stain COMMENTS: [id number] QUERIES: Specimen Description 4TH RIGHT TOE Procedure Result Reported Site Wound/Misc Gram Stain Final 09/29/17- 0746 ML 3+ Neutrophils 1+ Nucleated Cells 1+ Gram Positive Cocci Wound/Misc Culture Final 09/30/17- 1212 ML Organism 1 CORYNEBACTERIUM STRIATUM Quantity 2+ * ML - Main Lab . END OF REPORT DEPARTMENT OF PATHOLOGY, [address] [place] [address] Albin Mario M.D. Director [facility] # [id number] 77 Because ethnic data is not always readily available, this report includes an eGFR for both -Americans and non- Americans. The National Kidney Disease Education Program (NKDEP) does not endorse the use of the MDRD equation for patients that are not between the ages of 18 and 70, are , have extremes of body size, muscle mass, or nutritional status, or are non- or non-. According to the National Kidney Foundation, irrespective of diagnosis, the stage of the disease is based on the level of kidney function: Stage Description GFR(mL/min/1.73 m(2)) 1 Kidney damage with normal or decreased GFR 90 2 Kidney damage with mild decrease in GFR 60-89 3 Moderate decrease in GFR 30-59 4 Severe decrease in GFR 15-29 5 Kidney failure <15 (or dialysis) 78 Acute inflammation: >10.00 79 Therapeutic target for the treatment of diabetes mellitus patients is <7% HBA1C, and in selective patients <6.0%. Please refer to [place] [employer] diabetic care guidelines for further information. 80 f/u 81 SEE RESULTS BELOW [id number] EPIFIX 3.5 MESH TRANSFUSED 09/17/17 1039 82 SEE RESULTS BELOW [id number] EPIFIX 3.5 MESH TRANSFUSED 09/10/17 1157 83 Sheep Clipper: [id number] 84 Sheep Clipper: [id number] 85 Sheep Clipper: [id number] 86 Sheep Clipper: [id number] 87 Sheep Clipper: [id number] 88 Sheep Clipper: [id number] 89 Sheep Clipper: [id number] 90 Sheep Clipper: [id number] 91 Sheep Clipper: [id number] 92 Sheep Clipper: [id number] 93 Sheep Clipper: [id number] 94 Sheep Clipper: [id number] 95 Sheep Clipper: [id number] 96 Sheep Clipper: [id number] 97 Sheep Clipper: [id number] 98 Sheep Clipper: [id number] 99 Sheep Clipper: [id number] 100 Sheep Clipper: [id number] 101 Sheep Clipper: [id number] 102 Sheep Clipper: [id number] 103 Sheep Clipper: [id number] 104 Sheep Clipper: [id number] 105 Sheep Clipper: [id number] 106 Sheep Clipper: [id number] 107 Sheep Clipper: [id number] 108 Sheep Clipper: [id number] 109 Sheep Clipper: [id number] 110 Sheep Clipper: [id number] 111 Sheep Clipper: [id number] 112 HBO Protocol Sheep Clipper: [id number] 113 Sheep Clipper: [id number] 114 Sheep Clipper: [id number] 115 Sheep Clipper: [id number] 116 Sheep Clipper: [id number] 117 Sheep Clipper: [id number] 118 Sheep Clipper: [id number] 119 Sheep Clipper: [id number] 120 Sheep Clipper: [id number] 121 Sheep Clipper: [id number] 122 Sheep Clipper: [id number] 123 Sheep Clipper: [id number] 124 Sheep Clipper: [id number] 125 Sheep Clipper: [id number] 126 Sheep Clipper: [id number] 127 Sheep Clipper: [id number] 128 Sheep Clipper: [id number] 129 Sheep Clipper: [id number] 130 Sheep Clipper: [id number] 131 Sheep Clipper: [id number] 132 Sheep Clipper: [id number] 133 Sheep Clipper: [id number] 134 Sheep Clipper: [id number] 135 Sheep Clipper: [id number] 136 Sheep Clipper: [id number] 137 Sheep Clipper: [id number] 138 Sheep Clipper: [id number] 139 Sheep Clipper: [id number] 140 Sheep Clipper: [id number] 141 Sheep Clipper: [id number] 142 Sheep Clipper: [id number] 143 Sheep Clipper: [id number] 144 Sheep Clipper: [id number] 145 Sheep Clipper: [id number] 146 Normal Range 180 to 914 Indeterminate Range 145 to 180 Deficient Range <145 147 Sheep Clipper: [id number] 148 SEE RESULT BELOW Name: ALBIN LUEVANO : [address]: Janeen Maya MD Acct: [id number] Unit: [id number] AGE: 67 Location: [facility] 352-01 Re04/11/17 Dis: 04/14/17 SEX: M Status: DIS IN SPEC: [id number] JOHNNY: 04/13/17-[address]: Steffen Rojas MD REQ: [id number] RECD: 04/13/17-1312 STATUS: JASSI ALEXANDER DR: Riky Nelson MD _ ORDERED: Decal, LEVEL 4 FINAL DIAGNOSIS Left fifth toe, amputation: -- Gangrenous, separative ischemic necrosis with ulceration. -- Skin and soft tissue inflamed but viable at margin of resection. -- Bone with acute and chronic osteomyelitis. PRE-OPERATIVE DIAGNOSIS Osteomyelitis at distal pole of proximal phalanx left fifth toe GROSS DESCRIPTION The specimen is received in formalin labeled, Left Fifth Toe, and consists of a 5.4 x 3.0 x 2.6 cm amputated digit partially surfaced by a reyes-white unguis. The margin of resection displays shaggy cauterized reyes-pink soft tissue and scant bone. The skin margin is scaly to focally shaggy. There is a 2.2 x 1.5 cm dusky reyes-altamirano shaggy ulceration on the lateral digit 0.9 cm from the nearest margin. The surrounding tissue is crusted. The remaining skin is scaly to wrinkled reyes-white. The cut surface is necrotic dusky reyes- red to altamirano. Received separately in the same container is a 4.0 by up to 2.6 x 1.7 cm reyes- red rubbery cauterized soft tissue and bone fragment. [employer] sections are submitted in cassettes A and B as follows: A-bone following decalcification and B-ulcer and soft tissue to include inked margin. MICROSCOPIC DESCRIPTION Signed (signature on file) Linh Ruvalcaba MD 12/28 1045 END OF REPORT * ML=Testing performed at Main Lab DEPARTMENT OF PATHOLOGY, [address] [place] [address] Albin Mario M.D. Director [facility] # [id number] 149 Please note the change in INR reference range effective 17. 150 Because ethnic data is not always readily available, this report includes an eGFR for both -Americans and non- Americans. The National Kidney Disease Education Program (NKDEP) does not endorse the use of the MDRD equation for patients that are not between the ages of 18 and 70, are , have extremes of body size, muscle mass, or nutritional status, or are non- or non-. According to the National Kidney Foundation, irrespective of diagnosis, the stage of the disease is based on the level of kidney function: Stage Description GFR(mL/min/1.73 m(2)) 1 Kidney damage with normal or decreased GFR 90 2 Kidney damage with mild decrease in GFR 60-89 3 Moderate decrease in GFR 30-59 4 Severe decrease in GFR 15-29 5 Kidney failure <15 (or dialysis) 151 Critical Result LACT:2.2 Called to [id number] at: 22:42:51 by:JEB Read back by:ABIEL BUCKLEY Severe Sepsis and Septic Shock Management Bundle Measure requires all lactic acids initially measuring >2.0 mmol/L be repeated. 152 SEE RESULT BELOW Name: ALBIN LUEVANO : [address]: Janeen Maya MD Acct: [id number] Unit: [id number] AGE: 67 Location: [place] [address]- Re04/11/17 Dis: 04/14/17 SEX: M Status: DIS IN SPEC: [id number] JOHNNY: 04/11/17 [facility] DR: David Moulton MD REQ: [id number] RECD: 04/11/17 STATUS: HILDA ALEXANDER DR: Ramez Akins III, MD _ SOURCE: BLOOD,VENO SPDESC: ORDERED: Blood Cult COMMENTS: Patient is On Antibiotics? NO Procedure Result Reported Site Aerobic Culture Bottle Final 04/16/17- 2220 ML No Growth Day 5 Anaerobic Culture Bottle Final 04/16/17- 2220 ML No Growth Day 5 * ML - [facility] ([facility]) . END OF REPORT * ML=Testing performed at Main Lab DEPARTMENT OF PATHOLOGY, [address] [place] [address] Albin Mario M.D. Director [facility] # [id number] 153 SEE RESULT BELOW Name: ALBIN LUEVANO : [address]: Blu Jules MD Acct: [id number] Unit: [id number] AGE: 67 Location: ENDO Re01/25/17 SEX: M Status: DEP REF SPEC: [id number] JOHNNY: 01/25/17 [facility] DR: Blu Jules MD REQ: [id number] RECD: 01/25/17 STATUS: JASSI ALEXANDER DR: Ramez Akins III, MD _ ORDERED: LEVEL 4/5 FINAL DIAGNOSIS 1. Colon, hepatic flexure, biopsy: -- Tubular adenoma. -- No high grade dysplasia or malignancy. 2. Colon, mid transverse, biopsy: -- Tubular adenoma. -- No high grade dysplasia or malignancy. 3. Colon, mid transverse, biopsy: -- Tubulovillous adenoma. -- No high grade dysplasia or malignancy. 4. Colon, at 40 cm, biopsy: -- Tubular adenoma. -- No high grade dysplasia or malignancy. 5. Colon, at 15 cm, biopsy: -- Tubulovillous adenoma. -- No high-grade dysplasia or malignancy. CLINICAL HISTORY No history given POST-OPERATIVE DIAGNOSIS Five polyps - at 15 cm snare cautery, at 40 cm snare, transverse #1 snare, transverse #2 snare cautery, hepatic flexure - snare; tics; restart Xarelto in 24 hours; 3 years CONTINUED ON NEXT PAGE * ML=Testing performed at Main Lab DEPARTMENT OF PATHOLOGY, [address] [place] [address] Albin Mario M.D. Director [facility] # [id number] RUN DATE: 01/26/17 [facility] LAB LIVE PAGE 2 Patient: ALBIN LUEVANO [id number] (Continued) GROSS DESCRIPTION (Continued) GROSS DESCRIPTION 1. The specimen is received in formalin labeled, Hepatic Flexure Polyp, and consists of two reyes-pink irregular to polypoid soft tissue fragments measuring 0.3 x 0.2 x 0.1 cm and 0.4 x 0.3 x 0.3 cm. The larger fragment is inked, bisected and the specimen is entirely submitted in one cassette. 2. The specimen is received in formalin labeled, Mid Transverse Polyp #1, and consists of two reyes-pink polypoid soft tissue fragments measuring 0.4 x 0.3 x 0.2 cm and 0.5 x 0.4 x 0.2 cm. The larger fragment is inked, bisected and the specimen is submitted entirely in one cassette. 3. The specimen is received in formalin labeled, Mid Transverse Polyp #2, and consists of two reyes-pink polypoid soft tissue fragments measuring 0.3 x 0.3 x 0.2 cm and 0.7 by up to 0.6 x 0.4 cm. The larger fragment is inked, bisected and the specimen is entirely submitted in one cassette. 4. The specimen is received in formalin labeled, Colon Polyp at 40 cm, and consists of a 0.4 x 0.3 x 0.3 cm reyes-pink polypoid soft tissue fragment which is submitted entirely in one cassette. 5. The specimen is received in formalin labeled, Colon Polyp at 15 cm, and consists of a 1.1 x 0.9 by up to 0.6 cm aggregate of reyes-pink irregular to polypoid soft tissue fragments the largest of which measures up to 0.9 cm. The largest fragment is inked, trisected and the specimen is submitted entirely in one cassette. Signed (signature on file) Linh Ruvalcaba MD 1050 END OF REPORT * ML=Testing performed at Main Lab DEPARTMENT OF PATHOLOGY, [address] [place] [address] Albin Mario M.D. Director [facility] # [id number] 154 Because ethnic data is not always readily available, this report includes an eGFR for both -Americans and non- Americans. The National Kidney Disease Education Program (NKDEP) does not endorse the use of the MDRD equation for patients that are not between the ages of 18 and 70, are , have extremes of body size, muscle mass, or nutritional status, or are non- or non-. According to the National Kidney Foundation, irrespective of diagnosis, the stage of the disease is based on the level of kidney function: Stage Description GFR(mL/min/1.73 m(2)) 1 Kidney damage with normal or decreased GFR 90 2 Kidney damage with mild decrease in GFR 60-89 3 Moderate decrease in GFR 30-59 4 Severe decrease in GFR 15-29 5 Kidney failure <15 (or dialysis) 155 Desirable <150 Borderline high 150-199 High 200-499 Very High >500 156 Desirable <200 Borderline high 200-239 High >239 157 Low <40 Desirable: 40-60 High: >60 158 Desirable: <100 mg/dL Near Optimal: 100-129 mg/dL Borderline High: 130-159 mg/dL High: 160-189 mg/dL Very High: >189 mg/dL 159 [id number] 160 SEE RESULT BELOW Name: ALBIN LUEVANO : [address]: Jennifer Okeefe Acct: [id number] Unit: [id number] AGE: 65 Location: [place] Re12/27/15 SEX: M Status: DEP ER SPEC: [id number] JOHNNY: 12/27/[address]: Anthony HONG REQ: [id number] RECD: 12/28/15 STATUS: RES [facility] DR: Jennifer Brown III, MD _ SOURCE: [facility]: ORDERED: MRSA/SA SSTI, Culture Stain COMMENTS: [id number] Procedure Result Reported Site MRSA/S. aureus SSTI PCR PENDING Wound/Misc Gram Stain Final 12/28/15- 1342 ML 3+ Epithelial Cells 2+ Neutrophils 3+ Gram Positive Cocci 1+ Gram Positive Bacilli Wound/Misc Culture PENDING * ML - MAIN LAB ([facility]) . END OF REPORT * ML=Testing performed at Main Lab DEPARTMENT OF PATHOLOGY, [address] [place] [address] Albin Mario M.D. Director JULIA # [id number] 161 SEE RESULT BELOW Name: ALBIN LUEVANO : [address]: Jennifer Okeefe Acct: [id number] Unit: [id number] AGE: 65 Location: [place] Re12/27/15 SEX: M Status: DEP ER SPEC: [id number] JOHNNY: 12/27/15 [facility] DR: Anthony HONG REQ: [id number] RECD: 12/28/15125 STATUS: HILDA ALEXANDER DR: Jennifer Brown III, MD _ SOURCE: [employer] [place] SPDESC: ORDERED: MRSA/SA SSTI, Culture Stain COMMENTS: [id number] Procedure Result Reported Site MRSA/S. aureus SSTI PCR Final 12/28/15- 1516 ML Organism 1 MRSA NEGATIVE Organism 2 S.AUREUS NEGATIVE Wound/Misc Gram Stain Final 12/28/15- 1342 ML 3+ Epithelial Cells 2+ Neutrophils 3+ Gram Positive Cocci 1+ Gram Positive Bacilli Wound/Misc Culture Final 12/30/15- 1202 ML Organism 1 NORMAL ARCENIO * ML - MAIN LAB ([facility]) . END OF REPORT * ML=Testing performed at Main Lab DEPARTMENT OF PATHOLOGY, [address] [place] [address] Albin Mario M.D. Director [facility] # [id number] 162 >100 to <200 pg/mL: likely compensated congestive heart failure (CHF) 200 to 400 pg/mL: likely moderate CHF >400 pg/mL: likely moderate to severe CHF 163 Desirable <150 Borderline high 150-199 High 200-499 Very High >500 164 Desirable <200 Borderline high 200-239 High >239 165 Low <40 Desirable: 40-60 High: >60 166 Desirable: <100 mg/dL Near Optimal: 100-129 mg/dL Borderline High: 130-159 mg/dL High: 160-189 mg/dL Very High: >189 mg/dL 167 Unable to calculate due to low microalbumin 168 Because ethnic data is not always readily available, this report includes an eGFR for both -Americans and non- Americans. The National Kidney Disease Education Program (NKDEP) does not endorse the use of the MDRD equation for patients that are not between the ages of 18 and 70, are , have extremes of body size, muscle mass, or nutritional status, or are non- or non-. According to the National Kidney Foundation, irrespective of diagnosis, the stage of the disease is based on the level of kidney function: Stage Description GFR(mL/min/1.73 m(2)) 1 Kidney damage with normal or decreased GFR 90 2 Kidney damage with mild decrease in GFR 60-89 3 Moderate decrease in GFR 30-59 4 Severe decrease in GFR 15-29 5 Kidney failure <15 (or dialysis) 169 Microalbuminuria in a random sample is defined as: Microalbumin/Creatinine ratio of 30-299 ug/mg. 170 FASTING 171 Because ethnic data is not always readily available, this report includes an eGFR for both -Americans and non- Americans. The National Kidney Disease Education Program (NKDEP) does not endorse the use of the MDRD equation for patients that are not between the ages of 18 and 70, are , have extremes of body size, muscle mass, or nutritional status, or are non- or non-. According to the National Kidney Foundation, irrespective of diagnosis, the stage of the disease is based on the level of kidney function: Stage Description GFR(mL/min/1.73 m(2)) 1 Kidney damage with normal or decreased GFR 90 2 Kidney damage with mild decrease in GFR 60-89 3 Moderate decrease in GFR 30-59 4 Severe decrease in GFR 15-29 5 Kidney failure <15 (or dialysis) 172 Desirable <150 Borderline high 150-199 High 200-499 Very High >500 173 Desirable <200 Borderline high 200-239 High >239 174 Low <40 Desirable: 40-60 High: >60 175 Desirable <100 Near Optimal 100-129 Borderline high 130-159 High 160-189 Very High >189 176 FASTING 177 Therapeutic target for the treatment of diabetes Mellitus patients is <7% HBA1C, and in selective patients <6.0%.Please refer to [place] [employer] Diabetic care guidelines for further information. 178 RUN DATE: 07/01/12 [facility] LAB LIVE PAGE 1 RUN TIME: [address] [place] [address] Specimen Inquiry Name: ALLISONCHARISALBIN Kandis : [address]: Amanda Davenport MD Acct: [id number] Unit: [id number] AGE: 62 Location: [place] Re06/28/12 SEX: M Status: DEP ER SPEC: [id number] JOHNNY: 06/28/12-1749 [facility] DR: Amanda Davenport MD REQ: [id number] RECD: 06/29/12 STATUS: HILDA ALEXANDER DR: Rmaez Akins III, MD _ SOURCE: LEG,LEFT SPDESC: ORDERED: Culture Stain Procedure Result Verified Site Wound/Misc Gram Stain Final 06/29/12- 1204 ML 2+ Polys 1+ Epithelial Cells 2+ Gram Positive Cocci Wound/Misc Culture Final 07/01/12- 0943 ML Organism 1 STAPHYLOCOCCUS AUREUS Quantity 3+ 1. STAPHYLOCOCCUS AUREUS M.I.C. RX --------- ------ Penicillin >=0.5 R Clindamycin <=0.25 S Erythromycin 0.5 S Gentamicin <=0.5 S Nitrofurantoin <=16 S Oxacillin <=0.25 S * Quinupristin/Dalfopristin 0.5 S Rifampin <=0.5 S Tetracycline <=1 S Doxycycline - Deduced S * Minocycline - Deduced S Trimethoprim/Sulfamethoxazole <=10 S Vancomycin <=0.5 S Imipenem-Deduced S Ampicillin/Sulbactam-Deduced S Cefazolin-Deduced S CONTINUED ON NEXT PAGE * ML=Testing performed at Main Lab DEPARTMENT OF PATHOLOGY, [facility] Mobile Location, [place] [address] Albin Mario M.D. Director [facility] Permit #[id number] RUN DATE: 07/01/12 [facility] LAB LIVE PAGE 2 RUN TIME: 942 [facility] Iagnosis [place], [place] [address] Specimen Inquiry Patient: ALBIN LUEVANO [id number] (Continued) Specimen: [id number] Collected: 06/28/12-1749 Received: 06/29/12-1038 (Continued) Procedure Result Verified Site Wound/Misc Culture Final (continued) * These antibiotics are not available in the [facility] Formulary Contact the Microbiology Department for any additional antibiotic reporting. END OF REPORT * ML=Testing performed at Main Lab DEPARTMENT OF PATHOLOGY, [address] [place] [address] Albin Mario M.D. Director [facility] Permit #[id number] 179 Microalbuminuria in a random sample is defined as: Microalbumin/Creatinine ratio of 30-299 ug/mg. 180 CHOLESTEROL INTERPRETATION: Desirable: Less than 200 MG/DL Borderline-High Risk: 200-239 MG/DL High-Risk: 240 MG/DL and over 181 HDL INTERPRETATION: Undesirable: High Risk: Less than 40 MG/DL Desirable: Low Risk: Greater than 60 MG/DL 182 LDL INTERPRETATION: Low Risk Optimal Level: LDL Less than 100 MG/DL Near or Above Optimal: LDL 100-129 MG/DL Borderline High Risk: LDL 130-159 MG/DL High Risk: LDL 160-189 MG/DL Very High Risk: LDL Greater than 189 MG/DL 183 Anion gap measurement may be of limited value in the presence of any alkalosis, especially in a combined acid base disorder. . 184 Because ethnic data is not always readily available, this report includes an eGFR for both -Americans and non- Americans. The National Kidney Disease Education Program (NKDEP) does not endorse the use of the MDRD equation for patients that are not between the ages of 18 and 70, are , have extremes of body size, muscle mass, or nutritional status, or are non- or non-. According to the National Kidney Foundation, irrespective of diagnosis, the stage of the disease is based on the level of kidney function: Stage Description GFR(mL/min/1.73 m(2)) 1 Kidney damage with normal or decreased GFR 90 2 Kidney damage with mild decrease in GFR 60-89 3 Moderate decrease in GFR 30-59 4 Severe decrease in GFR 15-29 5 Kidney failure <15 (or dialysis) 185 * SERUM LEVELS OF PSA MEASURED USING THE [employer] ACCESS HYBRITECH IMMUNOASSAY SHOULD NOT BE INTERPRETED ABSOLUTE EVIDENCE OF THE PRESENCE OR ABSENCE OF DISEASE. THE PSA VALUE SHOULD BE USED IN CONJUNCTION WITH OTHER PERTINENT CLINICAL DIAGNOSTIC PROCEDURES. The values obtained with different assay methods or kits cannot be used interchangeably. 186 RUN DATE: 03/09/11 [facility] NMI LIVE PAGE 1 RUN TIME: 1101 Specimen Inquiry RUN USER: INTERFACE Name: ALBIN LUEVANO Status: DEP CLI Re03/07/11 Age/Sex: 61/M Unit#: [id number] Location: : 48 SPEC #: [id number] JOHNNY: 03/07/11 STATUS: RES REQ #: [id number] RECD: 03/08/11-[address]: Nayely Ortiz MD SOURCE: WOUND ENTR: 03/08/11-[address]: Ramez Akins III, MD [facility]: TOE,RIGHT ORDERED: CULT SENS/GS ACT WKST: B 03/09/11 #1 Procedure Result Verified Site > CULTURE SENSITIVITY Preliminary 03/09/11- 1101 ML Organism 1 STAPHYLOCOCCUS AUREUS QUANTITY MANY Organism 2 PSEUDOMONAS SPECIES QUANTITY MODERATE > GRAM STAIN SMEAR Final 03/08/11- 1521 ML POLYS MODERATE SMEAR: MOD GRAM POSITIVE COCCI MOD GRAM NEGATIVE BACILLI ML - [facility] Permit #[id number] [address] [place] [address] DEPARTMENT OF PATHOLOGY, [address] [place] [address] [facility] Permit #[id number] Rex Xiong M.D. Cash Register Mechanic 187 RUN DATE: 03/10/11 [facility] NMI LIVE PAGE 1 RUN TIME: 924 Specimen Inquiry RUN USER: INTERFACE Name: ALLISONCHARISALBIN Kandis Status: DEP CLI Re03/07/11 Age/Sex: 61/M Unit#: [id number] Location: [facility]. : 46 SPEC #: [id number] JOHNNY: 03/07/11 STATUS: RES REQ #: [id number] RECD: 03/08/[address]: Nayely Ortiz MD SOURCE: WOUND ENTR: 03/08/11-[address] [facility] [address]: Mable PALMA MD, Ramez [facility]: TOE,RIGHT ORDERED: CULT SENS/GS ACT WKST: B 03/10/11 #1 Procedure Result Verified Site > CULTURE SENSITIVITY Preliminary 03/10/11- 25 ML Organism 1 STAPHYLOCOCCUS AUREUS QUANTITY MANY Organism 2 PSEUDOMONAS AERUGINOSA QUANTITY MODERATE 1. STAPHYLOCOCCUS AUREUS RX M.I.C. ------ --------- RIFAMPIN S <=0.5 LEVOFLOXACIN S <=0.12 TETRACYCLINE S <=1 CIPROFLOXACIN S <=0.5 CLINDAMYCIN S <=0.25 ERYTHROMYCIN S <=0.25 GENTAMICIN S <=0.5 * MOXIFLOXACIN S <=0.25 TIGECYCLINE S <=0.12 OXACILLIN S 0.5 LINEZOLID S 2 TRIMETH-SULFA S <=10 VANCOMYCIN S 1 +AMPICILLIN/SUBLACTAM S +IMIPENEM S +CEFAZOLIN S 2. PSEUDOMONAS AERUGINOSA RX M.I.C. ------ --------- AMIKACIN S <=2 LEVOFLOXACIN S 1 CIPROFLOXACIN S <=0.25 GENTAMICIN S <=1 CEFTAZIDIME S 4 IMIPENEM S <=1 DEPARTMENT OF PATHOLOGY, [address] [place] [address] [facility] Permit #[id number] Rex Xiong M.D. Cash Register Mechanic RUN DATE: 03/10/11 [facility] NMI LIVE PAGE 2 RUN TIME: 924 Specimen Inquiry RUN USER: INTERFACE Name: ALBIN LUEVANO Status: ANN MARIE CLI Re03/07/11 Age/Sex: 61/M Unit#: [id number] Location: [facility]. : 46 -- -- CONTINU ED Procedure Result Verified Site CULTURE SENSITIVITY Preliminary (continued) - +These results are deduced according to CLSI guidelines as they are related to tested antimicrobials with almost identical spectrum of activity. *These antibiotics are not available in the [facility] Formulary. Contact the Microbiology Department for any additional antibiotic reporting. *These antibiotics are not available in the [facility] Formulary. Contact the Microbiology Department for any additional antibiotic reporting. > GRAM STAIN SMEAR Final 03/08/11- 1521 ML POLYS MODERATE SMEAR: MOD GRAM POSITIVE COCCI MOD GRAM NEGATIVE BACILLI - [facility] Permit #[id number] [facility] Iagnosis [place] [address] DEPARTMENT OF PATHOLOGY, [facility] Mobile Location, [place], [place] [address] [place] [facility] Permit #[id number] Albin Mario M.D. Director Mayra Pan M.D. Cash Register Mechanic 188 RUN DATE: 03/10/11 [facility] NMI LIVE PAGE 1 RUN TIME: 6794 Specimen Inquiry RUN USER: INTERFACE Name: ALBIN LUEVANO Status: ANN MARIE CLI Re03/07/11 Age/Sex: 61/M Unit#: [id number] Location: : 48 SPEC #: [id number] JOHNNY: 03/07/11 STATUS: RES REQ #: [id number] RECD: 03/08/[address]: Nayely Ortiz MD SOURCE: WOUND ENTR: 03/08/[address]: Mable PALMA MD, [facility]: TOE,RIGHT ORDERED: CULT SENS/GS Procedure Result Verified Site > CULTURE SENSITIVITY Preliminary 03/10/11- 1438 ML Organism 1 STAPHYLOCOCCUS AUREUS QUANTITY MANY Organism 2 PSEUDOMONAS AERUGINOSA QUANTITY MODERATE 1. STAPHYLOCOCCUS AUREUS RX M.I.C. ------ --------- RIFAMPIN S <=0.5 LEVOFLOXACIN S <=0.12 TETRACYCLINE S <=1 CIPROFLOXACIN S <=0.5 CLINDAMYCIN S <=0.25 ERYTHROMYCIN S <=0.25 GENTAMICIN S <=0.5 * MOXIFLOXACIN S <=0.25 TIGECYCLINE S <=0.12 OXACILLIN S 0.5 LINEZOLID S 2 TRIMETH-SULFA S <=10 VANCOMYCIN S 1 +AMPICILLIN/SUBLACTAM S +IMIPENEM S +CEFAZOLIN S 2. PSEUDOMONAS AERUGINOSA RX M.I.C. ------ --------- AMIKACIN S <=2 LEVOFLOXACIN S 1 CIPROFLOXACIN S <=0.25 GENTAMICIN S <=1 CEFTAZIDIME S 4 IMIPENEM S <=1 DEPARTMENT OF PATHOLOGY, [address] [place] [address] [facility] Permit #[id number] Albin Mario M.D. Director Mayra aPn M.D. Cash Register Mechanic RUN DATE: 03/10/11 [facility] NMI LIVE PAGE 2 RUN TIME: 1439 Specimen Inquiry RUN USER: INTERFACE Name: ALBIN LUEVANO Accosbaldo#: [id number] Status: ANN MARIE CLI Re03/07/11 Age/Sex: 61/M Unit#: [id number] Location: : 46 -- -- CONTINU ED Procedure Result Verified Site CULTURE SENSITIVITY Preliminary (continued) - +These results are deduced according to CLSI guidelines as they are related to tested antimicrobials with almost identical spectrum of activity. *These antibiotics are not available in the [facility] Formulary. Contact the Microbiology Department for any additional antibiotic reporting. *These antibiotics are not available in the [facility] Formulary. Contact the Microbiology Department for any additional antibiotic reporting. > GRAM STAIN SMEAR Final 03/08/11- 1521 ML POLYS MODERATE SMEAR: MOD GRAM POSITIVE COCCI MOD GRAM NEGATIVE BACILLI [facility] Permit #[id number] [address] [place] [address] DEPARTMENT OF PATHOLOGY, [address] [place] [address] [facility] Permit #[id number] Albin Mario M.D. Director Mayra Pan M.D. Cash Register Mechanic 189 Anion gap measurement may be of limited value in the presence of any alkalosis, especially in a combined acid base disorder. . 190 A metabolite of Naproxen, O-desmethylnaproxen, has been shown to interfere with the Jendrassik-Bassem method for measuring total bilirubin. Samples from patients who have taken Naproxen have shown spurious elevation in total bilirubin levels. 191 Because ethnic data is not always readily available, this report includes an eGFR for both -Americans and non- Americans. The National Kidney Disease Education Program (NKDEP) does not endorse the use of the MDRD equation for patients that are not between the ages of 18 and 70, are , have extremes of body size, muscle mass, or nutritional status, or are non- or non-. According to the National Kidney Foundation, irrespective of diagnosis, the stage of the disease is based on the level of kidney function: Stage Description GFR(mL/min/1.73 m(2)) 1 Kidney damage with normal or decreased GFR 90 2 Kidney damage with mild decrease in GFR 60-89 3 Moderate decrease in GFR 30-59 4 Severe decrease in GFR 15-29 5 Kidney failure <15 (or dialysis) 192 CHOLESTEROL INTERPRETATION: Desirable: Less than 200 MG/DL Borderline-High Risk: 200-239 MG/DL High-Risk: 240 MG/DL and over 193 HDL INTERPRETATION: Undesirable: High Risk: Less than 40 MG/DL Desirable: Low Risk: Greater than 60 MG/DL 194 LDL INTERPRETATION: Low Risk Optimal Level: LDL Less than 100 MG/DL Near or Above Optimal: LDL 100-129 MG/DL Borderline High Risk: LDL 130-159 MG/DL High Risk: LDL 160-189 MG/DL Very High Risk: LDL Greater than 189 MG/DL 195 Imm. [address] 1 196 * SERUM LEVELS OF PSA MEASURED USING THE [employer] ACCESS HYBRITECH IMMUNOASSAY SHOULD NOT BE INTERPRETED ABSOLUTE EVIDENCE OF THE PRESENCE OR ABSENCE OF DISEASE. THE PSA VALUE SHOULD BE USED IN CONJUNCTION WITH OTHER PERTINENT CLINICAL DIAGNOSTIC PROCEDURES. A PSA value in the range of 0.1 to 0.6 ng/ml is indeterminate if being used as an indicator of recurrent or residual disease. . 197 ----- [facility]: [facility]27[facility]08 [facility]: 1407 Specimen Inquiry RUN USER: INTERFACE -- Name: ALLISONALBIN Status: REG REF Re11/23/08 Age/Sex: 58/M Unit#: [id number] Location: [facility] : 46 -- Specimen: [id number] Spec Date: 11/23/[address]: Varun Mccarty MD Spec Type: SURGICAL P Received: 11/26/08-1040 Copies to: Ramez Akins III, MD SPECIMEN BIOPSY DISTAL ESOPHAGUS HISTORY POST-OP DIAGNOSIS: Pancolonic divertics, severe gastroesophageal reflux d isease, alcoholic gastropathy CLINICAL INFORMATION: Follow up colon polyp, gastroesophageal reflux dise ase, nausea and vomiting GROSS DESCRIPTION Specimen received in formalin labelled Albin Rider Luevano, Distal Esophagus and consists of multiple, reyes, soft tissue fragments measuring 0.4 x 0.3 x 0.2 cm. in aggregate. Submitted entirely, one cassette. DIAGNOSIS Distal esophagus, biopsy: A) Squamous mucosa with acute ulceration with associated acute and chronically inflamed granulation tissue. B) Reactive epithelial changes. C) No viropathic changes identified. COMMENT A fungal stain (GMS) was performed with appropriate controls and is negative for fungal organisms in the biopsy specimen. Signed Electronically by: ALBIN MARIO MD 11/27/08 1407 -- -- DEPARTMENT OF PATHOLOGY, [address] [place] [address] [facility] Permit #[id number] Albin Mario M.D. Director Mayra Pan M.D. Pageant Director Dir екатерина -- 198 Anion gap measurement may be of limited value in the presence of any alkalosis, especially in a combined acid base disorder. . 199 Note change in reference range as of 12/01/07. The change was based on recommendations from the [place] [employer]. 200 Please note change in reference range effective 07 . 201 A metabolite of Naproxen, O-desmethylnaproxen, has been shown to interfere with the Jendrassik-Bassem method for measuring total bilirubin. Samples from patients who have taken Naproxen have shown spurious elevation in total bilirubin levels. 202 Because ethnic data is not always readily available, this report includes an eGFR for both -Americans and non- Americans. The National Kidney Disease Education Program (NKDEP) does not endorse the use of the MDRD equation for patients that are not between the ages of 18 and 70, are , have extremes of body size, muscle mass, or nutritional status, or are non- or non-. According to the National Kidney Foundation, irrespective of diagnosis, the stage of the disease is based on the level of kidney function: Stage Description GFR(mL/min/1.73 m(2)) 1 Kidney damage with normal or decreased GFR 90 2 Kidney damage with mild decrease in GFR 60-89 3 Moderate decrease in GFR 30-59 4 Severe decrease in GFR 15-29 5 Kidney failure <15 (or dialysis) 203 CHOLESTEROL INTERPRETATION: Desirable: Less than 200 MG/DL Borderline-High Risk: 200-239 MG/DL High-Risk: 240 MG/DL and over 204 HDL INTERPRETATION: Undesirable: High Risk: Less than 40 MG/DL Desirable: Low Risk: Greater than 60 MG/DL 205 LDL INTERPRETATION: Low Risk Optimal Level: LDL Less than 100 MG/DL Near or Above Optimal: LDL 100-129 MG/DL Borderline High Risk: LDL 130-159 MG/DL High Risk: LDL 160-189 MG/DL Very High Risk: LDL Greater than 189 MG/DL 206 THERAPEUTIC TARGET FOR THE TREATMENT OF DIABETES MELLITUS PATIENTS IS <7% HBA1C, AND IN SELECTIVE PATIENTS <6.0%. PLEASE REFER TO [place] DIABETIC CARE GUIDELINES FOR FURTHER INFORMATION. 207 Anion gap measurement may be of limited value in the presence of any alkalosis, especially in a combined acid base disorder. . 208 Note change in reference range as of 12/01/07. The change was based on recommendations from the [place] [employer]. 209 Please note change in reference range effective 07 . 210 The detection limit for ETHANOL is 10.0 mg/dl . Values less than 10.0 mg/dl cannot be accurately measured. . 211 Lymphopenia % 212 Anion gap measurement may be of limited value in the presence of any alkalosis, especially in a combined acid base disorder. . 213 Note change in reference range as of 12/01/07. The change was based on recommendations from the [place] [employer]. 214 Please note change in reference range effective 07 . 215 RESULTS VERIFIED BY REPEAT ANALYSIS ON THE SAME SAMPLE. REPEATED RESULT IS:557 VERBAL TO ELÍAS BY NITIN at 1701 on 07/25/08. Results read back accurately. 216 RESULTS VERIFIED BY REPEAT ANALYSIS ON THE SAME SAMPLE. REPEATED RESULT IS:1022 VERBAL TO ELÍAS BY NITIN at 1701 on 07/25/08. Results read back accurately. 217 New Reference Range and Interpretation effective 01/13/02 TnI (ng/ml) INTERPRETATION <0.06 ng/ml NOT SUPPORTIVE OF DIAGNOSIS OF CT 0.06 - 0.50 ng/ml INDETERMINATE: SUGGEST SERIAL STUDIES IF CLINICALLY INDICATED. > 0.5 ng/ml CONSISTENT WITH DIAGNOSIS OF CT . 218 * SERUM LEVELS OF PSA MEASURED USING THE [employer] ACCESS HYBRITECH IMMUNOASSAY SHOULD NOT BE INTERPRETED ABSOLUTE EVIDENCE OF THE PRESENCE OR ABSENCE OF DISEASE. THE PSA VALUE SHOULD BE USED IN CONJUNCTION WITH OTHER PERTINENT CLINICAL DIAGNOSTIC PROCEDURES. A PSA value in the range of 0.1 to 0.6 ng/ml is indeterminate if being used as an indicator of recurrent or residual disease. . 219 PATIENT MAY HAVE RESULTS PER DOCTOR'S AUTHORIZATION. Questions regarding this report should be directed to your doctor. 220 Anion gap measurement may be of limited value in the presence of any alkalosis, especially in a combined acid base disorder. . 221 Note change in reference range as of 12/01/07. The change was based on recommendations from the [place] [employer]. 222 Please note change in reference range effective 07 . 223 Anion gap measurement may be of limited value in the presence of any alkalosis, especially in a combined acid base disorder. . 224 Note change in reference range as of 12/01/07. The change was based on recommendations from the [place] [employer]. 225 Please note change in reference range effective 07 . 226 The detection limit for ETHANOL is 10.0 mg/dl . Values less than 10.0 mg/dl cannot be accurately measured. . 227 PLEASE NOTE NEW REFERENCE RANGES. 228 THERAPEUTIC TARGET FOR THE TREATMENT OF DIABETES MELLITUS PATIENTS IS <7% HBA1C, AND IN SELECTIVE PATIENTS <6.0%. PLEASE REFER TO [employer] DIABETIC CARE GUIDELINES FOR FURTHER INFORMATION. 229 JOAO VALUE=2.01 ( OF 03/18/07 Recommended INR for Patients on Oral Anticoagulants Prophylaxis 2.0 - 3.0 Treatment of thrombosis 2.0 - 3.0 Prevention of embolism 2.0 - 3.0 Prevention of embolism from prosthetic heart valves 2.5 - 3.5 230 PLEASE NOTE NEW REFERENCE RANGE EFFECTIVE 07. 231 Lymphopenia % 232 Anion gap measurement may be of limited value in the presence of any alkalosis, especially in a combined acid base disorder. . 233 Note change in reference range as of 12/01/07. The change was based on recommendations from the [place] [employer]. 234 Please note change in reference range effective 07 . 235 New Reference Range and Interpretation effective 01/13/02 TnI (ng/ml) INTERPRETATION <0.06 ng/ml NOT SUPPORTIVE OF DIAGNOSIS OF CT 0.06 - 0.50 ng/ml INDETERMINATE: SUGGEST SERIAL STUDIES IF CLINICALLY INDICATED. > 0.5 ng/ml CONSISTENT WITH DIAGNOSIS OF CT . 236 THE URINE SPECIMEN WAS TESTED AT THE LISTED CUTOFFS: DRUG CLASS TEST LEVEL (NG/ML) AMPHETAMINES 300 BARBITUATES 200 BENZODIAZEPINE METABOLITES 200 COCAINE METABOLITES 300 CANNABINOIDS 25 OPIATES 200 PCP 25 THIS IS A SCREENING PROCEDURE. POSITIVE RESULTS ARE NOT CONFIRMED. SPECIMEN WAS RECEIVED WITHOUT CHAIN OF CUSTODY. RESULTS SHOULD BE USED FOR MEDICAL PURPOSES ONLY. . 237 Anion gap measurement may be of limited value in the presence of any alkalosis, especially in a combined acid base disorder. . 238 Please note change in reference range effective 07 . 239 [facility] on 10/19/07. Results read back accurately. RESULTS VERIFIED BY REPEAT ANALYSIS ON THE SAME SAMPLE. REPEATED RESULT IS:354.6/R The detection limit for ETHANOL is 10.0 mg/dl . Values less than 10.0 mg/dl cannot be accurately measured. . 240 OR 10/11/07 241 Anion gap measurement may be of limited value in the presence of any alkalosis, especially in a combined acid base disorder. . 242 Please note change in reference range effective 07 . 243 Anion gap measurement may be of limited value in the presence of any alkalosis, especially in a combined acid base disorder. . 244 Please note change in reference range effective 07 . 245 Anion gap measurement may be of limited value in the presence of any alkalosis, especially in a combined acid base disorder. . 246 Classification: Desirable . 247 CALCULATED LDL APPROXIMATES THE VALUE OF A DIRECT LDL MEASUREMENT. Classification: Optimal Level . 248 * SERUM LEVELS OF PSA MEASURED USING THE [employer] ACCESS HYBRITECH IMMUNOASSAY SHOULD NOT BE INTERPRETED ABSOLUTE EVIDENCE OF THE PRESENCE OR ABSENCE OF DISEASE. THE PSA VALUE SHOULD BE USED IN CONJUNCTION WITH OTHER PERTINENT CLINICAL DIAGNOSTIC PROCEDURES. Procedures Date CPT Code Description Status 12/03/2017 29646 Removal Devitalization Tissue Wound Less Than Equal 20 Completed Square CM 11/25/2017 92148 Hyperbaric Oxygen Therapy By Physician Completed 11/23/2017 91996 Hyperbaric Oxygen Therapy By Physician Completed 11/23/2017 33164 Apply Total Contact Leg Cast Completed 11/18/2017 20103 Hyperbaric Oxygen Therapy By Physician Completed 11/17/2017 62344 Hyperbaric Oxygen Therapy By Physician Completed 11/16/2017 70575 Hyperbaric Oxygen Therapy By Physician Completed 11/12/2017 02506 Hyperbaric Oxygen Therapy By Physician Completed 11/12/2017 39999 Removal Devitalization Tissue Wound Less Than Equal 20 Completed Square CM 11/11/2017 75196 Hyperbaric Oxygen Therapy By Physician Completed 11/10/2017 73259 Hyperbaric Oxygen Therapy By Physician Completed 11/09/2017 08662 Hyperbaric Oxygen Therapy By Physician Completed 11/05/2017 31138 Hyperbaric Oxygen Therapy By Physician Completed 11/04/2017 91870 Hyperbaric Oxygen Therapy By Physician Completed 11/03/2017 83746 Hyperbaric Oxygen Therapy By Physician Completed 11/02/2017 59850 Hyperbaric Oxygen Therapy By Physician Completed 10/29/2017 33867 Removal Devitalization Tissue Wound Less Than Equal 20 Completed Square CM 10/28/2017 02881 Hyperbaric Oxygen Therapy By Physician Completed 10/27/2017 65272 Hyperbaric Oxygen Therapy By Physician Completed 10/26/2017 29641 Hyperbaric Oxygen Therapy By Physician Completed 10/22/2017 15920 Hyperbaric Oxygen Therapy By Physician Completed 10/22/2017 54599 Removal Devitalization Tissue Wound Less Than Equal 20 Completed Square CM 10/21/2017 14882 Hyperbaric Oxygen Therapy By Physician Completed 10/20/2017 92843 Hyperbaric Oxygen Therapy By Physician Completed 10/19/2017 37466 Hyperbaric Oxygen Therapy By Physician Completed 10/15/2017 34446 Hyperbaric Oxygen Therapy By Physician Completed 10/14/2017 05034 Hyperbaric Oxygen Therapy By Physician Completed 10/14/2017 44449 Removal Devitalization Tissue Wound Less Than Equal 20 Completed Square CM 10/12/2017 18594 Hyperbaric Oxygen Therapy By Physician Completed 10/08/2017 69357 Apply Total Contact Leg Cast Completed 10/01/2017 27238 Apply Total Contact Leg Cast Completed 09/17/2017 24739 Application Skin Graft Face,Scalp,Eyelids,Mouth, Neck Completed Up To 100CM 09/10/2017 18785 Application Skin Substitute Graft Trunk,Arms Lets Up To Completed 100 SQ CM 08/27/2017 82211 Removal Devitalized Tissue Wound Greater Than 20 Square Completed CM 08/27/2017 05236 Removal Devitalization Tissue Wound Less Than Equal 20 Completed Square CM 08/13/2017 49760 Hyperbaric Oxygen Therapy By Physician Completed 08/12/2017 03882 Hyperbaric Oxygen Therapy By Physician Completed 08/11/2017 47205 Hyperbaric Oxygen Therapy By Physician Completed 08/06/2017 03825 Hyperbaric Oxygen Therapy By Physician Completed 08/04/2017 93812 Hyperbaric Oxygen Therapy By Physician Completed 08/03/2017 27361 Hyperbaric Oxygen Therapy By Physician Completed 08/02/2017 65642 Hyperbaric Oxygen Therapy By Physician Completed 07/30/2017 38288 Hyperbaric Oxygen Therapy By Physician Completed 07/29/2017 46666 Hyperbaric Oxygen Therapy By Physician Completed 07/28/2017 88861 Hyperbaric Oxygen Therapy By Physician Completed 07/27/2017 98648 Hyperbaric Oxygen Therapy By Physician Completed 07/23/2017 55732 Debridement Skin,& sq Tissue Completed 07/23/2017 33600 Debridement Muscle/Fascia,Epidermis/Dermis/Tissue,1St Completed 20 SQ CM 07/22/2017 71983 Hyperbaric Oxygen Therapy By Physician Completed 07/21/2017 45174 Hyperbaric Oxygen Therapy By Physician Completed 07/20/2017 68884 Hyperbaric Oxygen Therapy By Physician Completed 07/19/2017 21618 Hyperbaric Oxygen Therapy By Physician Completed 07/15/2017 44331 Hyperbaric Oxygen Therapy By Physician Completed 07/14/2017 34462 Hyperbaric Oxygen Therapy By Physician Completed 07/13/2017 58777 Hyperbaric Oxygen Therapy By Physician Completed 07/12/2017 91941 Hyperbaric Oxygen Therapy By Physician Completed 07/02/2017 90768 Hyperbaric Oxygen Therapy By Physician Completed 07/01/2017 16355 Hyperbaric Oxygen Therapy By Physician Completed 06/30/2017 04418 Hyperbaric Oxygen Therapy By Physician Completed 06/29/2017 55599 Hyperbaric Oxygen Therapy By Physician Completed 06/28/2017 47374 Hyperbaric Oxygen Therapy By Physician Completed 06/28/2017 98018 Hyperbaric Oxygen Therapy By Physician Completed 06/25/2017 63954 Hyperbaric Oxygen Therapy By Physician Completed 06/24/2017 57278 Hyperbaric Oxygen Therapy By Physician Completed 06/24/2017 99538 Removal Devitalization Tissue Wound Less Than Equal 20 Completed Square CM 06/24/2017 94641 Debridement Skin,& sq Tissue Completed 06/23/2017 00174 Hyperbaric Oxygen Therapy By Physician Completed 06/23/2017 41730 Hyperbaric Oxygen Therapy By Physician Completed 06/18/2017 16801 Debridement Skin, Subcutaneous Tissue & Muscle Completed 06/11/2017 12080 Apply Total Contact Leg Cast Completed 06/04/2017 04207 Debridement Skin,& sq Tissue Completed 06/04/2017 51864 Debridement Muscle/Fascia,Epidermis/Dermis/Tissue,1St Completed 20 SQ CM 06/04/2017 82886 Removal Devitalization Tissue Wound Less Than Equal 20 Completed Square CM 05/28/2017 71978 Debridement Muscle/Fascia,Epidermis/Dermis/Tissue,Addtl Completed 20 SQ CM 05/28/2017 96626 Debridement Skin, Subcutaneous Tissue & Muscle Completed 05/21/2017 71536 Debridement Skin, Subcutaneous Tissue & Muscle Completed 05/02/2017 34772 ECHO Transthorasic Realtime 2D W Doppler & Color Flow Completed Hosp 04/13/2017 64591 Amputation Metatarsal W/Toe Completed 03/29/2017 56161 EKG Tracing & Interpretation Completed 01/25/2017 Colonoscopy Completed 11/12/2016 80495 EKG Tracing & Interpretation Completed 04/15/2016 26186 Holter Monitor Review (24 hr)dr review & interp only Completed 04/14/2016 53660 ECG Monitor/Recording W/Visual Superimposition Scanning Completed 03/31/2016 10212 EKG Tracing & Interpretation Completed 03/23/2016 76663 Sleep Study Unattended,HRT Rate,Oxygen Sat,Resp Completed Effort/Airflow 03/23/2016 87070 ECHO Transthoracic, Real-Time 2D With Doppler And Color Completed Flow 02/26/2016 37415 EKG Tracing & Interpretation Completed 07/15/2012 Diabetic Retinal Eye Exam Completed 11/23/2008 Colonoscopy Completed 12/09/2007 25877 Treadmill Interp/Report Only Completed 12/09/2007 20382 Treadmill Interp/Report Only Completed 12/09/2007 24692 Stress Test Supervsn W/Out I/R Completed 12/06/2007 28360 EKG Tracing & Interpretation Completed 12/06/2007 43116 EKG Tracing & Interpretation Completed Encounters Type Date Location Provider CPT E/M Dx Office Visit 12/09/2017 [facility] Internal Medicine Ramez Akins, 62850 E11.69 4:00p - Ranjit Goodman M86.271 I10 I48.91 I87.2 G47.33 E78.00 F41.9 Office Visit 11/17/2017 9:15a [place] [address] L89.624 AT [facility] M86.271 Office Visit 10/26/2017 12:52p [facility] [place] [address] M86.671 Infectious Diseases Rex Barnhart Z79.2 L89.620 Office Visit 09/28/2017 10:10a [facility] [place] 12490 L89.624 Infectious Diseases Rex Barnhart E11.621 M86.171 E11.69 Office Visit 09/22/2017 1:45p [place] [address] L89.624 [facility] Office Visit 08/24/2017 1:30p W[facility] Care Center AT Lazaro Casarez, 53183 E11.621 [facility] Rex L89.624 Office Visit 08/20/2017 10:00a [place] [address] L89.624 [facility] L89.610 E08.621 M86.172 E66.01 T81.31xD E11.621 T86.821 Office Visit 08/17/2017 10:15a [facility] Lazaro Casarez 69870 E11.621 AT [facility] M.D. L89.624 M86.172 E66.01 Office Visit 08/06/2017 11:00a [place] [address] L89.624 [facility] Office Visit 07/30/2017 11:00a [facility] [place] [address] L89.624 [facility] L89.610 E08.621 M86.172 E66.01 T81.31xD E11.621 T86.821 Office Visit 07/02/2017 1:30p [facility] Lazaro HernandezMartita Casarez, 36807 L89.624 [facility] E11.621 E66.01 Office Visit 06/29/2017 12:45p [facility] Lazaro HernandezMartita Casarez, 27888 L89.624 [facility] L89.610 E11.621 Office Visit 06/28/2017 1:30p [facility] Aretha Oliva DNP, 98368 T81.31xA AT [facility] RN, PIPE FITTER HELPER-BC L89.622 S81.801A M86.172 Office Visit 06/23/2017 2:00p [facility] AT Mayra Cyr, 02785 L89.624 [facility] Office Visit 05/11/2017 9:36a [facility] [place] 59770 L89.622 Hospitalists Annie roblero NP L03.116 F10.239 J96.01 Office Visit 05/10/2017 [facility] Cleopatra De Paz, 36626 L89.622 9:33a Assoc,pc CAR COOPER Hospitalists L03.116 F10.239 J96.01 Office Visit 05/09/2017 9:31a [facility] Topher Payne, 14387 L89.622 Assoc,pc Hospitalists Rex,FACP L03.116 F10.239 Office Visit 05/08/2017 9:23a [facility] Topher Payne, 87597 L89.622 Assoc,pc Hospitalists Rex,FACP J96.01 L03.116 Office Visit 05/07/2017 9:22a [facility] Lydia Hajir, 35064 J96.01 Hospitalists D.O. L03.116 F10.239 L89.622 Office Visit 05/06/2017 9:21a [facility] Lydia Hajir, 88236 J96.01 Hospitalists D.O. L03.116 F10.239 L89.622 Office Visit 05/05/2017 9:19a [facility] Lydia Hajir, 90126 J96.01 Hospitalists D.O. L03.116 F10.239 L89.622 Office Visit 05/04/2017 9:17a [facility] Lydia Hajir, 95493 J96.01 Hospitalists D.O. L03.116 F10.239 L89.622 Office Visit 05/03/2017 10:07a [facility] [address] T81.31xA Infectious Diseases Rex Barnhart E11.621 L97.429 L97.529 J96.01 N50.812 Office Visit 05/03/2017 9:15a [facility], Lydia Blane, 32979 J96.01 Hospitalists D.O. L03.116 F10.239 L89.622 Office Visit 05/02/2017 9:12a [facility] Lydia Blane, 98437 J96.01 Hospitalists D.O. L03.116 F10.239 L89.622 Office Visit 05/01/2017 9:10a [facility] Lydia Arguelles, 02410 L03.116 Hospitalists D.O. L89.622 F10.10 I48.0 Office Visit 04/30/2017 8:00a [facility], Jose R Pereira, 79573 L03.116 Hospitalists Rex L89.622 F10.10 I48.0 Office Visit 04/12/2017 9:55a [facility], 17632 M86.172 Assoc, Hospitalists CAR COOPER L97.509 E11.621 E66.01 Office Visit 04/12/2017 7:00a [facility] Steffen Rojas, 55725 M86.172 [facility] Office Visit 04/11/2017 9:53a [facility], Riky Omar, 20289 M86.172 Hospitalists Rex L97.509 E11.621 E66.01 Office Visit 03/29/2017 4:00p [facility] Steffen Keller [facility], 16960 Z01.810 Director Of Academic DO FACC I10 E11.9 R60.0 E66.8 I48.91 Office Visit 11/12/2016 4:00p [facility] [place] [address] I48.91 Director Of Academic FACC I10 G47.9 E11.9 Office Visit 08/10/2016 3:10p [facility] Internal Medicine - Nurse Visit C 38185 I10 [place] Office Visit 07/10/2016 4:00p [facility] Arianna [facility], 18775 I48.91 [facility] DO FACC G47.9 I10 Office Visit 03/31/2016 4:00p [facility] [place]anna [facility] [place] [address] I48.91 Director Of Academic FACC E66.8 I10 G47.9 E78.00 Office Visit 03/04/2016 4:00p [facility] Internal Medicine - Ramez Akins, 01621 I48.91 Ranjit Goodman Office Visit 02/26/2016 9:15a [facility], Vito 34219 I48.91 Hospitalists HAL Grossman E11.9 E66.01 I10 Office Visit 02/26/2016 1:00p [facility] Internal Medicine Ramez Akins, 60972 I48.91 - Ranjit Goodman E11.9 R09.02 Office Visit 10/24/2015 2:45p [facility] [place] [address] G47.9 [facility] E66.01 R09.02 Office Visit 05/28/2015 2:40p [facility] Internal Medicine Ramez Akins, 90603 E11.9 - Carson Goodman I10 E78.0 F41.3 Z23 Office Visit 11/20/2014 3:20p [facility] Internal Medicine Ramez Akins, 85344 707.15 - Carson Goodman Office Visit 09/25/2014 4:00p [facility] Internal Medicine Ramez LexieMartita Mable, 33858 782.3 - Carson Goodman 250.00 401.1 272.0 300.09 V03.82 Office Visit 10/24/2013 2:00p [facility] Internal Medicine Ramez LexieMratita Akins, 78291 729.5 - Carson Goodman Office Visit 02/06/2013 3:40p [facility] Internal Medicine Ramez LexieMartita Akins, 50937 465.9 - Carson Goodman 250.00 Office Visit 06/30/2012 4:00p [facility] Internal Medicine Ramez Jessica Akins, 21301 707.19 - Carson Goodman 459.81 Office Visit 03/31/2012 1:00p [facility] Internal Medicine Caitlyn Jones, N.P. 02885 250.00 - Carson v03.82 Office Visit 12/10/2011 3:30p [facility] Internal Medicine - Caitlyn Jones, N.P. [address] [address] [place] 278.01 401.1 272.0 250.00 790.21 Office Visit 11/19/2011 4:00p [facility] Internal [facility] - Caitlyn Jones, N.P. [address] [address] 401.1 272.0 278.01 Office Visit 03/03/2011 3:40p DO Not Use Director Of Academic AT [facility], [address] 790.21 [facility] 401.1 300.09 272.0 707.15 Office Visit 01/24/2010 11:40a DO Not Use Director Of Academic AT [facility], 80662 401.1 [facility] 300.09 272.0 V04.81 v04.81 Office Visit 01/02/2009 1:30p DO Not Use Director Of Academic AT [facility], 64342 707.15 [facility] 401.1 272.0 300.09 Office Visit 10/08/2008 2:00p [facility] AT [facility], 01577 787.91 [facility] 300.09 Office Visit 08/07/2008 3:00p [facility] AT [facility], 06414 789.00 [facility] M.D. 787.91 401.1 Office Visit 04/24/2008 3:00p [facility] AT [facility], 73389 V72.83 [facility] M.D. 272.0 401.1 300.09 Office Visit 12/29/2007 2:30p [facility] AT [facility], 14429 272.0 [facility] M.D. 401.1 Office Visit 12/06/2007 10:45a [facility] AT [facility], 24606 272.0 [facility] M.D. 786.05 401.1 V72.83 Office Visit 11/07/2007 2:45p [facility] AT [facility], 45647 401.1 [facility] M.D. 300.09 Office Visit 08/18/2007 3:15p [facility] AT [facility], 53172 401.1 [facility] M.D. Office Visit 07/06/2007 3:30p [facility] AT [facility], 48345 401.1 [facility] M.D. Office Visit 01/05/2007 3:15p [facility] AT [facility], 75047 272.0 [facility] M.D. 401.1 300.09 V04.81 Plan of Care Future Appointment(s):02/11/2018 11:15 am - Aretha Oliva DNP, RN, MILDRED- at [facility]12/20/2017 - Aretha Oliva DNP RN, PIPE FITTER HELPER- BCG47.33 Obstructive sleep apnea (adult) (pediatric)New Orders:Home Sleep TestingFollow up:6 weeksRecommendations:sleep apnea, severe according to HST in 2016. Recommend Home Sleep Test (HST) to follow Medicare guidelines for testing and set up with PAP device. Set up with CPAP auto after testing. After the HST Sleep apnea to start PAP at 5-15 cm Review of sleep study in detail. Review of risks of untreatedsleep apnea including cardiovascular events: rhythm irregularities, heart attack, stroke; gastro esophageal reflux disease (GERD); diabetes; anxiety, depression; high blood pressure; accidents (machinery and automobile) Recommendation for PAP other treatment modalities NON-PAP including oral appliance/mandibular advancement device, positional strategies , and surgery discussed. Referral for PAP device to be sent to [facility] phone: [phone] will ask them to do a home visit to set you up. Equipment appointment will take about 45 minutes , theDME provider will call you within 5 days to set you up for the device. If you do not hear from themcall the Sleep Center. The mask will have a 30-day guarantee, if you have mask problems call the DMEprovider to have a fitting for a different mask. Need distilled water for humidifier CPAP mask and tubing Cleaning Wipe off mask daily (baby wipe-no scent, or warm water) Clean mask, tubing, filter, and water chamber weekly in mild no scent dish soap and water. Hang to dry. So-Clean is an option (not covered by insurance) If you have problems with the air pressure call the sleep center and speak toa nurse. If you have any further questions, please call the [facility] at .R09.02 HypoxemiaRecommendations:nocturnal hypoxemia on HSTZ68.42 Body mass index (BMI) 45.0-49.9, adultRecommendations:Avoid weight gain
--- OUTSIDE RECORDS SUMMARY | 2017-12-21 19:48 | XMS REPORT ---
:1950 External Reference #:[id number] Author Organization [employer] [facility] Address [address] [place] [address] Phone [phone] Care Team Providers Name Role Phone Ramez Akins III, MD Primary Care Physician Unavailable Payers Type Date Identification Numbers Payment Provider Subscriber Medicare Primary Policy Number: [id number] Medicare Albin Luevano PayID: [id number] [address] [place] [address] Medigap Part B Policy Number: [id number] [employer] Albin Luevano Group Number: [id number] [address] PayID: [id number] [place] [address] Problems Date Description Provider Status Onset: 03/03/2011 Impaired fasting glycaemia Ramez Akins M.D. Active Onset: 03/03/2011 Benign essential hypertension Ramez Akins M.D. Active Onset: 03/03/2011 Anxiety state Ramez Akins M.D. Active Onset: 03/03/2011 Pure hypercholesterolemia Ramez Akins M.D. Active Onset: 03/03/2011 Ulcer of foot Ramez Akins M.D. 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 [employer] Cigarette Use Quit 30 Years Ago Cigarette Use Former Cigarette Smoker 1 Pack Daily ETOH Use Currently consumes alcohol 3 glasses of wine a day or 3 beers Smoking Patient is a former smoker Daily Caffeine Consumes on average 36oz of 36-48 oz diet cola soda per day Exercise Type/Frequency Does not exercise Allergies, Adverse Reactions, Alerts Date Description Reaction Status Severity Comments 01/05/2007 PCN active GI Pset Medications Medication Date Status Form Strength Qnty SIG Indications Ordering Provider Ceftriaxone 09/29 Active Solution 2gm 2 grams daily Bryn Sodium /2017 Rec iv x 6 wks at [facility] Rex Barnhart Amlodipine 03/29 Active Tablets 5mg 90tab 1 by mouth Steffenkia Keller Besylate /2016 s every day DO Jose FACC Losartan 08/14 Active Tablets 100-25mg 90tab Take 1 tablet Ramez E. Potassium/[place] s by mouth Mable chlorothiazide every day M.DMartita Xarelto 02/27 Active Tablets 20mg 90tab Take 1 Tablet Ramez E. /2015 s By Mouth Mable, Every Day M.D. Atorvastatin 01/31 Active Tablets 20mg 90tab Take 1 Tablet E78.0 Ramez E. Calcium /2011 s By Mouth AT Mable, Bedtime M.D. Metoprolol 04/07 Active Tablets 100mg 30tab take 1 tablet Ramez E. Succinate ER /2010 ER 24HR s by mouth daily Rex Akins Valium 11/27 Active Tablets 5mg 15tab 1 by mouth Ramez E. /2008 s three times a Mable, day as needed M.D. Citalopram 05/17 Active Tablets 20mg 90tab Take 1 Tablet Ramez EMartita Hydrobromide /2007 s By Mouth Mable, Daily M.D. Multivitamins Active Tablets 1 PO qd Barken, / MD Mikhail Tamsulosin HCL Active Capsules 0.4mg 1 by mouth Unknown /0000 every day 1/2 hour after dinner Aleve Active Capsules 220mg 1 tbalet as Unknown /0000 needed for pain, approximately twice a week. Metronidazole 09/28 Hx Tablets 500mg 30tab 1 tab by mouth M86.171 Bryn s every 12 hours D. - Bronwyn 12/08 M.Perico Amlodipine 11/27 Hx Tablets 10mg 90tab 1 by mouth Steffen Keller Besylate s every day Jose, - DO FACC 03/29 Losartan 08/14 Hx Tablets 100-25mg 30tab 1 by mouth Ramez Lopez Potassium/[place] s every day mikael Akins - M.Perico 08/14 Z Pack 08/22 Hx Tablets 250mg 6tabs 2 today 1 Ramez Jessica every day 4 Mable, - panfilo M.DMartita 08/22 Azithromycin 08/22 Hx Tablets 250mg [...] one tab po qhs 272.0 Ramez Lopez s Adrianne Akins M.D. 01/31 Losartan 03/03 Hx Tablets 50-12.5mg 90tab take 1 tablet E78.0 Ramez Lopez Potassium/[place] s daily mikael Akins - M.Perico 08/24 Lisinopril/Hydr 10/16 Hx Tablets 20-12.5mg 90tab Take 1 Tablet 272.0 Ramez Lopez ochlorothiazide /2010 s Adrianne Baker M.D. 03/03 Z Pack 09/03 Hx Tablets 250mg 6tabs 2 today 1 qd 4 Ramez Lopez /2010 Adrianne Iqbal M.D. 03/03 Lisinopril/Hydr 01/24 [...] Adrianne Akins M.D. 09/25 Lisinopril/HCT /2008 Z 31/03.5 Zestoretic 07/05 Hx Tablets 20-12.5 90tab po [...] 24HR s Adrianne Akins M.D. 04/07 Lexapro Hx Tablets 10mg 90tab 1 PO qd Lety, / s MD Mikhail - 05/17 Valium Hx Tablets 5mg 90tab 1 po tid prn Ramez E. /0000 s to fill as Adrianne Akins M.D. 11/27 /2008 Prednisone 0000 Hx Tablets 10mg 30tab 5tabx 2days,4 Unknown /0000 s [id number] - [id number],2ta 10/10 [id number],1tabx ay. Levofloxacin Hx Tablets 750mg 7tabs 1 tab po qd x Ramez E. / 7 days Adrianne Akins M.D. 10/10 Ventolin HFA Hx Aerosol 108(90Bas 1unit 2 puffs po qid Unknown /0000 e) mcg/ac s prn - 10/24 Sulfamethoxazol Hx Tablets 800-160mg 20tab 1 po bid Unknown e/Trimethoprim /0000 s DS - 10/10 Mupirocin Hx Ointment 2% 22gm apply to skin Unknown lesions twice - daily 10/24 Doxycycline Hx Capsules 100mg one tablet Unknown Hyclate /0000 three times a - day (per 09/27 Bronwyn [facility] /2018 DC) Immunizations CPT Code Status Date Vaccine Lot # [id number] Given 01/23/2016 Flu Vaccine NOS [id number] Given 05/28/2015 Tdap - Tetanus/Diptheria/Acellular Pertussis [id number] Given 02/07/2015 Fluzone High Dose 14287 Given 09/25/2014 Pneumococcal Conjugate Vaccine 13 Valent For [id number] Intramuscular Use 56239 Given 01/23/2014 Fluzone High Dose 87374 Given 10/10/2013 Zoster (Zostavax) [id number] Q2039 Given 03/22/2013 Flu Vaccine NOS 28514 Given 03/31/2012 Pneumonia Vaccine [id number] Q2038 Given 02/11/2012 Fluzone Vaccine 28230 Given 03/03/2011 Influenza Virus 3Yrs & Over [id number] 79573 Given 01/24/2010 Influenza Virus 3Yrs & Over [id number] 91925 Given 02/07/2009 Influenza Virus 3Yrs & Over 66483 Given 02/07/2009 Influenza Virus 3Yrs & Over [id number] 68734 Given 01/05/2007 Influenza Virus 3Yrs & Over [id number] 55511 Given 06/02/2005 Td (History By Patient) Vital Signs Date Vital Result Comment 12/09/2017 Height 75 inches 6'3" Weight 386.00 [...] Hemoglobin A1c 5.1 5-7 finding Laboratory test 11/26/2017 Point of Care Glucose 108 mg/dL High 70-100 1 finding Laboratory test 11/26/2017 Point of Care Glucose 134 mg/dL High 70-100 2 finding Laboratory test 11/26/2017 Point of Care Glucose 124 mg/dL High 70-100 3 finding Laboratory test 11/25/2017 Point of Care Glucose 130 mg/dL High 70-100 4 finding Laboratory test 11/25/2017 Point of Care Glucose 108 mg/dL High 70-100 5 finding Laboratory test 11/23/2017 Point of Care Glucose 123 mg/dL High 70-100 6 finding Laboratory test 11/23/2017 Point of Care Glucose 152 mg/dL High 70-100 7 finding Laboratory test 11/18/2017 Point of Care Glucose 112 mg/dL High 70-100 8 finding Laboratory test 11/18/2017 Point of Care Glucose 135 mg/dL High 70-100 9 finding Laboratory test 11/17/2017 Point of Care Glucose 99 mg/dL 70-100 10 finding Laboratory test 11/17/2017 Point of Care Glucose 142 mg/dL High 70-100 11 finding Laboratory test 11/16/2017 Point of Care Glucose 112 mg/dL High 70-100 12 finding Laboratory test 11/16/2017 Point of Care Glucose 154 mg/dL High 70-100 13 finding Laboratory test 11/15/2017 Point of Care Glucose 115 mg/dL High 70-100 14 finding Laboratory test 11/15/2017 Point of Care Glucose 117 mg/dL High 70-100 15 finding Laboratory test 11/12/2017 Point of Care Glucose 124 mg/dL High 70-100 16 finding Laboratory test 11/12/2017 Point of Care Glucose 143 mg/dL High 70-100 17 finding Laboratory test 11/11/2017 Point of Care Glucose 124 mg/dL High 70-100 18 finding Laboratory test 11/11/2017 Point of Care Glucose 142 mg/dL High 70-100 19 finding Laboratory test 11/10/2017 Point of Care Glucose 109 mg/dL High 70-100 20 finding Laboratory test 11/10/2017 Point of Care Glucose 159 mg/dL High 70-100 21 finding Laboratory test 11/09/2017 Point of Care Glucose 109 mg/dL High 70-100 22 finding Laboratory test 11/09/2017 Point of Care Glucose 135 mg/dL High 70-100 23 finding Laboratory test 11/08/2017 Point of Care Glucose 159 mg/dL High 70-100 24 finding CBC Auto Diff 11/08/2017 White Blood Count [...] Egfr Non- 82.6 >60 Egfr 100.0 >60 25 Laboratory test finding 11/08/2017 C Reactive Protein 7.49 mg/L <8.01 Laboratory test finding 11/08/2017 Point of Care Glucose 113 mg/dL High 70 -100 26 Laboratory test finding 11/05/2017 Point of Care Glucose 121 mg/dL High 70 -100 27 Laboratory test finding 11/05/2017 Point of Care Glucose 121 mg/dL High 70 -100 28 Laboratory test finding 11/04/2017 Point of Care Glucose 113 mg/dL High 70 -100 29 Laboratory test finding 11/04/2017 Point of Care Glucose 149 mg/dL High 70 -100 30 Laboratory test finding 11/03/2017 Point of Care Glucose 98 mg/dL 70-100 31 Laboratory test finding 11/03/2017 Point of Care Glucose 158 mg/dL High 70 -100 32 Laboratory test finding 11/02/2017 Point of Care Glucose 108 mg/dL High 70 -100 33 Laboratory test finding 11/02/2017 Point of Care Glucose 153 mg/dL High 70 -100 34 Laboratory test finding 11/01/2017 Point of Care Glucose 154 mg/dL High 70 -100 35 Comp Metabolic Panel 11/01/2017 Sodium 137 mmol/L [...] Egfr Non- 82.6 >60 Egfr 100.0 >60 36 Laboratory test finding 11/01/2017 C Reactive Protein [...] Point of Care Glucose 94 mg/dL 70-100 37 Laboratory test finding 10/28/2017 Point of Care Glucose 99 mg/dL 70-100 38 Laboratory test finding 10/28/2017 Point of Care Glucose 124 mg/dL High 70 -100 39 Laboratory test finding 10/27/2017 Point of Care Glucose 127 mg/dL High 70 -100 40 Laboratory test finding 10/27/2017 Point of Care Glucose 97 mg/dL 70-100 41 Laboratory test finding 10/26/2017 Point of Care Glucose 124 mg/dL High 70 -100 42 Laboratory test finding 10/26/2017 Point of Care Glucose 125 mg/dL High 70 -100 43 Laboratory test finding 10/26/2017 Point of Care Glucose 109 mg/dL High 70 -100 44 CBC Auto Diff 10/25/2017 White Blood Count [...] Blood Cells % 0.1 Laboratory test finding 10/25/2017 Point of Care Glucose 99 mg/dL 70-100 45 Comp Metabolic Panel 10/25/2017 Sodium 139 mmol/L [...] Egfr Non- 79.6 >60 Egfr 96.3 >60 46 Laboratory test finding 10/25/2017 C Reactive Protein 4.74 mg/L <8.01 Laboratory test finding 10/25/2017 Point of Care Glucose 118 mg/dL High 70 -100 47 Laboratory test finding 10/25/2017 Point of Care Glucose 117 mg/dL High 70 -100 48 Laboratory test finding 10/22/2017 Point of Care Glucose 101 mg/dL High 70 -100 49 Laboratory test finding 10/22/2017 Point of Care Glucose 132 mg/dL High 70 -100 50 Laboratory test finding 10/21/2017 Point of Care Glucose 111 mg/dL High 70 -100 51 Laboratory test finding 10/21/2017 Point of Care Glucose 180 mg/dL High 70 -100 52 Laboratory test finding 10/20/2017 Point of Care Glucose 119 mg/dL High 70 -100 53 Laboratory test finding 10/20/2017 Point of Care Glucose 115 mg/dL High 70 -100 54 Laboratory test finding 10/19/2017 Point of Care Glucose 123 mg/dL High 70 -100 55 Laboratory test finding 10/19/2017 Point of Care Glucose 134 mg/dL High 70 -100 56 Laboratory test finding 10/18/2017 Point of Care Glucose 153 mg/dL High 70 -100 57 CBC Auto Diff 10/18/2017 White Blood Count [...] Blood Cells % 0.1 Comp Metabolic Panel 10/18/2017 Sodium 138 mmol/L [...] Egfr Non- 75.0 >60 Egfr 90.7 >60 58 Laboratory test finding 10/18/2017 C Reactive Protein 11.79 mg/L High < 8.01 Laboratory test finding 10/18/2017 Point of Care Glucose 117 mg/dL High 70 -100 59 Laboratory test finding 10/15/2017 Point of Care Glucose 100 mg/dL 70- 100 60 Laboratory test finding 10/15/2017 Point of Care Glucose 115 mg/dL High 70 -100 61 Laboratory test finding 10/14/2017 Point of Care Glucose 117 mg/dL High 70 -100 62 Laboratory test finding 10/14/2017 Point of Care Glucose 144 mg/dL High 70 -100 63 Laboratory test finding 10/14/2017 Point of Care Glucose 93 mg/dL 70-100 64 Laboratory test finding 10/12/2017 Point of Care Glucose 169 mg/dL High 70 -100 65 Laboratory test finding 10/12/2017 Point of Care Glucose 107 mg/dL High 70 -100 66 Laboratory test finding 10/12/2017 Point of Care Glucose 135 mg/dL High 70 -100 67 CBC Auto Diff 10/11/2017 White Blood Count [...] Care Glucose 119 mg/dL High 70 -100 68 Laboratory test finding 10/11/2017 Point of Care Glucose 131 mg/dL High 70 -100 69 Laboratory test finding 10/11/2017 C Reactive Protein [...] Egfr Non- 75.8 >60 Egfr 91.8 >60 70 Laboratory test finding 10/04/2017 C Reactive Protein 12.45 mg/L High < 8.01 Comp Metabolic Panel 10/04/2017 Sodium 134 mmol/L [...] Egfr Non- 81.6 >60 Egfr 98.7 >60 71 CBC Auto Diff 10/04/2017 White Blood Count [...] 0-2 Nucleated Red Blood Cells % 0 CBC Auto Diff 10/02/2017 White Blood Count [...] 0-2 Nucleated Red Blood Cells % 0.2 Comp Metabolic Panel 10/02/2017 Sodium 134 mmol/L [...] Egfr Non- 77.7 >60 Egfr 94.0 >60 72 Laboratory test 10/02/2017 C Reactive Protein 5.92 mg/L <8.01 finding Wound Culture/Sensi 09/28/2017 Wound/Misc SEE RESULT BELOW 73, 74 Culture-Gram Stain Basic Metabolic Panel 09/17/2017 Sodium 135 mmol/L Low 139-145 Potassium 4.5 mmol/L 3.5-5.0 Chloride 100 mmol/L Low 101-111 Co2 Carbon Dioxide 28 mmol/L 22-32 Anion Gap 7 mmol/L 2-11 Glucose 101 mg/dL High 70-100 Blood Urea Nitrogen 12 mg/dL 6-24 Creatinine 1.09 mg/dL 0.67-1.17 BUN/Creatinine Ratio 11.0 8-20 Calcium 9.3 mg/dL 8.6-10.3 Egfr Non- 67.1 >60 Egfr 86.3 >60 75 Laboratory test finding 09/17/2017 C Reactive Protein 14.45 mg/L High < 5.00 76 Hemoglobin A1c (Glyco HGB) 5.4 % 4.0-5.6 77 CBC Auto Diff 09/17/2017 White Blood Count [...] test 09/16/2017 Epifix 3.5X3.5 Mesh SEE RESULTS [facility] 78, 79 finding <SEE NOTE> Laboratory test 09/09/2017 Ep[facility] 3.5X3.5 Mesh [facility], 80 finding <SEE NOTE> Laboratory test 08/13/2017 Point of Care 119 mg/dL High 70-100 81 finding Glucose Laboratory test 08/13/2017 Point of Care 129 mg/dL High 70-100 82 finding Glucose Laboratory test 08/12/2017 Point of Care 113 mg/dL High 70-100 83 finding Glucose Laboratory test 08/12/2017 Point of Care 178 mg/dL High 70-100 84 finding Glucose Laboratory test 08/11/2017 Point of Care 153 mg/dL High 70-100 85 finding Glucose Laboratory test 08/11/2017 Point of Care 120 mg/dL High 70-100 86 finding Glucose Laboratory test 08/09/2017 Point of Care 109 mg/dL High 70-100 87 finding Glucose Laboratory test 08/09/2017 Point of Care 154 mg/dL High 70-100 88 finding Glucose Laboratory test 08/06/2017 Point of Care 134 mg/dL High 70-100 89 finding Glucose Laboratory test 08/06/2017 Point of Care 109 mg/dL High 70-100 90 finding Glucose Laboratory test 08/04/2017 Point of Care 117 mg/dL High 70-100 91 finding Glucose Laboratory test 08/04/2017 Point of Care 138 mg/dL High 70-100 92 finding Glucose Laboratory test 08/03/2017 Point of Care 112 mg/dL High 70-100 93 finding Glucose Laboratory test 08/03/2017 Point of Care 142 mg/dL High 70-100 94 finding Glucose Laboratory test 08/02/2017 Point of Care 134 mg/dL High 70-100 95 finding Glucose Laboratory test 08/02/2017 Point of Care 85 mg/dL 70-100 96 finding Glucose Laboratory test 07/30/2017 Point of Care 131 mg/dL High 70-100 97 finding Glucose Laboratory test 07/30/2017 Point of Care 91 mg/dL 70-100 98 finding Glucose Laboratory test 07/29/2017 Point of Care 133 mg/dL High 70-100 99 finding Glucose Laboratory test 07/29/2017 Point of Care 167 mg/dL High 70-100 100 finding Glucose Laboratory test 07/28/2017 Point of Care 98 mg/dL 70-100 101 finding Glucose Laboratory test 07/28/2017 Point of Care 158 mg/dL High 70-100 102 finding Glucose Laboratory test 07/27/2017 Point of Care 150 mg/dL High 70-100 103 finding Glucose Laboratory test 07/26/2017 Point of Care 127 mg/dL High 70-100 104 finding Glucose Laboratory test 07/26/2017 Point of Care 123 mg/dL High 70-100 105 finding Glucose Laboratory test 07/22/2017 Point of Care 123 mg/dL High 70-100 106 finding Glucose Laboratory test 07/22/2017 Point of Care 125 mg/dL High 70-100 107 finding Glucose Laboratory test 07/21/2017 Point of Care 130 mg/dL High 70-100 108 finding Glucose Laboratory test 07/21/2017 Point of Care 119 mg/dL High 70-100 109 finding Glucose Laboratory test 07/21/2017 Point of Care 118 mg/dL High 70-100 110 finding Glucose Laboratory test 07/20/2017 Point of Care 114 mg/dL High 70-100 111 finding Glucose Laboratory test 07/20/2017 Point of Care 151 mg/dL High 70-100 112 finding Glucose Laboratory test 07/19/2017 Point of Care 100 mg/dL 70-100 113 finding Glucose Laboratory test 07/19/2017 Point of Care 137 mg/dL High 70-100 114 finding Glucose Laboratory test 07/15/2017 Point of Care 121 mg/dL High 70-100 115 finding Glucose Laboratory test 07/15/2017 Point of Care 132 mg/dL High 70-100 116 finding Glucose Laboratory test 07/15/2017 Point of Care 108 mg/dL High 70-100 117 finding Glucose Laboratory test 07/14/2017 Point of Care 120 mg/dL High 70-100 118 finding Glucose Laboratory test 07/14/2017 Point of Care 109 mg/dL High 70-100 119 finding Glucose Laboratory test 07/13/2017 Point of Care 145 mg/dL High 70-100 120 finding Glucose Laboratory test 07/13/2017 Point of Care 111 mg/dL High 70-100 121 finding Glucose Laboratory test 07/12/2017 Point of Care 117 mg/dL High 70-100 122 finding Glucose Laboratory test 07/12/2017 Point of Care 134 mg/dL High 70-100 123 finding Glucose Laboratory test 07/12/2017 Point of Care 108 mg/dL High 70-100 124 finding Glucose Laboratory test 07/05/2017 Point of Care 99 mg/dL 70-100 125 finding Glucose Laboratory test 07/05/2017 Point of Care 129 mg/dL High 70-100 126 finding Glucose Laboratory test 07/02/2017 Point of Care 99 mg/dL 70-100 127 finding Glucose Laboratory test 07/02/2017 Point of Care 172 mg/dL High 70-100 128 finding Glucose Laboratory test 07/01/2017 Point of Care 105 mg/dL High 70-100 129 finding Glucose Laboratory test 07/01/2017 Point of Care 151 mg/dL High 70-100 130 finding Glucose Laboratory test 06/30/2017 Point of Care 123 mg/dL High 70-100 131 finding Glucose Laboratory test 06/30/2017 Point of Care 153 mg/dL High 70-100 132 finding Glucose Laboratory test 06/29/2017 Point of Care 122 mg/dL High 70-100 133 finding Glucose Laboratory test 06/29/2017 Point of Care 100 mg/dL 70-100 134 finding Glucose Laboratory test 06/29/2017 Point of Care 140 mg/dL High 70-100 135 finding Glucose Laboratory test 06/28/2017 Point of Care 115 mg/dL High 70-100 136 finding Glucose Laboratory test 06/28/2017 Point of Care 160 mg/dL High 70-100 137 finding Glucose Laboratory test 06/25/2017 Point of Care 120 mg/dL High 70-100 138 finding Glucose Laboratory test 06/25/2017 Point of Care 161 mg/dL High 70-100 139 finding Glucose Laboratory test 06/24/2017 Point of Care 105 mg/dL High 70-100 140 finding Glucose Laboratory test 06/24/2017 Point of Care 145 mg/dL High 70-100 141 finding Glucose Laboratory test 06/23/2017 Point of Care 117 mg/dL High 70-100 142 finding Glucose Laboratory test 06/23/2017 Point of Care 123 mg/dL High 70-100 143 finding Glucose Laboratory test 05/31/2017 Prealbumin 14 mg/dL Low 18-38 finding Vitamin B12 477 pg/mL 180-914 144 Vitamin D Total 25(Oh) 34.8 ng/mL 20-50 Laboratory test 04/30/2017 Point of Care 104 mg/dL High 70-100 145 finding Glucose Laboratory test 04/13/2017 Surgical Pathology SEE RESULT BELOW 146 finding Urinalysis Profile 04/11/2017 Urine Color Yellow Urine Appearance Clear Urine Specific [place] 1.005 Low 1.010-1.030 Urine pH 6.0 5-9 [...] finding 04/11/2017 Blood Culture SEE RESULT BELOW 147 Comp Metabolic Panel 04/11/2017 Sodium 127 mmol/L [...] Egfr Non- 79.6 >60 Egfr 102.3 >60 148 Laboratory test 04/11/2017 Lactic Acid 2.2 mmol/L High 0.5-2.0 149 finding Inr/Protime 04/11/2017 Inr 1.36 High 0.77-1.02 150 Laboratory test 04/11/2017 Partial Thrombo 40.0 seconds High 26.0-36.3 finding Time PTT Laboratory test 01/25/2017 Surgical Pathology SEE RESULT 151 finding BELOW Laboratory test 07/16/2016 Hemoglobin A1c 5.5 5-7 finding Urine Microalbumin 07/15/2016 Urine Creatinine 46.19 mg/dL Random Ur Microalbumin (mg/L) 61.9 mg/L Urine Microalbumin/Creatinine [...] Egfr Non- 83.9 >60 Egfr 107.9 >60 152 Lipid Profile (Trig/Chol/HDL) 07/15/2016 Triglycerides 159 mg/dL 153 Cholesterol 147 mg/dL 154 HDL Cholesterol 42.9 mg/dL 155 LDL Cholesterol 72 mg/dL 156 Laboratory test 02/26/2016 Hemoglobin A1c 5.8 5-7 finding Wound Culture/Sensi 12/27/2015 Wound/Misc SEE RESULT 157, 158 Culture-Gram Stain BELOW Laboratory test 12/27/2015 MRSA/S. aureus Ssti SEE RESULT 157, 159 finding PCR BELOW Laboratory test 05/28/2015 Hemoglobin A1c 5.5 5-7 finding Laboratory test 10/09/2014 B-Type Natriuretic 230 pg/mL High 160 finding Peptide BNP Lipid Profile 10/09/2014 Triglycerides 96 mg/dL 161 (Trig/Chol/HDL) Cholesterol 123 mg/dL 162 HDL Cholesterol 36.4 mg/dL 163 LDL Cholesterol 67 mg/dL 164 Urine Microalbumin Random 10/09/2014 Ur Microalbumin (mg/L) < 5.0 mg/L Urine Creatinine 106.84 mg/dL Urine Microalbumin/Creatinine TNP ug/mg <31 165 Laboratory test finding 09/25/2014 Hemoglobin A1c 5.4 [...] Egfr Non- 78.4 >60 Egfr 100.8 >60 166 Urine Microalbumin Random 10/10/2013 Ur Microalbumin (mg/L) 5.0 mg/dL < 30 167 Urine Creatinine 156.07 mg/dL Urine Microalbumin/Creatinine 3.2 Less Than 31 CBC Auto Diff 10/05/2013 White Blood Count 7.2 10^3/uL 4.8-10.8 168 Red Blood Count 4.63 10^6/uL 4.0-5.4 168 Hemoglobin 15.0 g/dL 14.0-18.0 168 Hematocrit 44 % 42-52 168 Mean Corpuscular Volume 96 fL High 80-94 168 Mean Corpuscular Hemoglobin 33 pg High 27-31 168 Mean Corpuscular HGB Conc 34 g/dL 31-36 168 Red Cell Distribution Width 16 % High 10.5-15 168 Platelet Count 177 10^3/uL 150-450 168 Mean Platelet Volume 10 um3 7.4-10.4 168 Abs Neutrophils 4.6 10^3/uL 1.5-7.7 168 Abs Lymphocytes 1.5 10^3/uL 1.0-4.8 168 Abs Monocytes 0.9 10^3/uL High 0-0.8 168 Abs Eosinophils 0.2 10^3/uL 0-0.6 168 Abs Basophils 0.1 10^3/uL 0-0.2 168 Abs Nucleated RBC 0.01 10^3/uL 168 Granulocyte % 64.3 % 38-83 168 Lymphocyte % 20.4 % Low 25-47 168 Monocyte % 12.1 % High 1-9 168 Eosinophil % 2.1 % 0-6 168 Basophil % 1.1 % 0-2 168 Nucleated Red Blood Cells % 0.1 168 Comp Metabolic Panel 10/05/2013 Sodium 140 mmol/L 133-145 168 Potassium 3.9 mmol/L 3.7-5.6 168 Chloride 104 mmol/L 101-111 168 Co2 Carbon Dioxide 30 mmol/L 22-32 168 Anion Gap 6 mmol/L 2-11 168 Glucose 98 mg/dL 70-100 168 Blood Urea Nitrogen 15 mg/dL 6-24 168 Creatinine 0.94 mg/dL 0.67-1.17 168 BUN/Creatinine Ratio 16.0 8-20 168 Calcium 9.0 mg/dL 8.6-10.3 168 Total Protein 6.5 g/dL 6.4-8.9 168 Albumin 3.8 g/dL 3.2-5.2 168 Globulin 2.7 g/dL 2-4 168 Albumin/Globulin Ratio 1.4 1-3 168 Total Bilirubin 1.00 mg/dL 0.2-1.0 168 Alkaline Phosphatase 110 U/L High 34-104 168 Alt 20 U/L 7-52 168 Ast 20 U/L 13-39 168 Egfr Non- 80.5 >60 168 Egfr 103.6 >60 168, 169 Lipid Profile (Trig/Chol/HDL) 10/05/2013 Triglycerides 133 mg/dL 168, 170 Cholesterol 123 mg/dL 168, 171 HDL Cholesterol 29.4 mg/dL 168, 172 LDL Cholesterol 67 mg/dL 168, 173 Laboratory test 10/05/2013 Hepatitis C Nonreactive Nonreactive 168, 174 finding Antibody Laboratory test 10/05/2013 Hemoglobin A1c 5.2 % Less than 6.0 168, 175 finding Laboratory test 02/06/2013 Hemoglobin A1c 5.0 5-7 finding Wound 06/28/2012 Wound/Misc (SEE NOTE) 176 Culture/Sensi Culture-Gram Stain Urine Microalbumin 03/31/2012 Ur Microalbumin 4.0 mg/L 177 Random (Mg/L) Urine Creatinine 90.6 mg/dL Urine Microalbumin/Creatinine 4.4 [...] finding 12/10/2011 Hemoglobin A1c 7.1 High 5-7 Laboratory test finding 12/09/2011 PSA 1.01 NG/ML 0-4 178 Lipid Profile (Trig/Chol/HDL) 12/09/2011 Triglyceride 161 mg/dL 40-200 Cholesterol 169 mg/dL Less Than 200 179 High Density Lipoprotein 34 mg/dL Low 40-60 180 Cholesterol/HDL Ratio 4.97 AVERAGE 1-4.97 Low Density Lipoprotein 103 mg/dL High Less Than 100 181 Basic Metabolic Panel 12/09/2011 Sodium 139 mmol/L 135-145 Potassium 4.0 mmol/L 3.5-5.0 Chloride 104 mmol/L 101-111 Co2 (Carbon Dioxide) 31.0 mmol/L 22-32 Anion Gap 4.0 mmol/L 2-11 182 Glucose 134 mg/dL High 70-100 BUN 11 mg/dL 6-24 Creatinine 1.0 mg/dL 0.50-1.40 One Over Creatinine 1.00 BUN/Creatinine Ratio 11.0 8-20 Calcium 8.5 mg/dL 8.1-9.9 eGFR Non- 75.5 > 60 eGFR 97.1 > 60 183 Culture And Sensitivity 03/07/2011 M <SEE NOTE> 184 Culture And Sensitivity 03/07/2011 M <SEE NOTE> 185 Culture And Sensitivity 03/07/2011 M <SEE NOTE> 186 DR Akins's Lab Panel 06/03/2010 TSH 3.12 MIU/ML 0.34-5.60 CMP Panel 06/03/2010 Sodium 139 mmol/L 135-145 Potassium 3.8 mmol/L 3.5-5.0 Chloride 103 mmol/L 101-111 Co2 (Carbon Dioxide) 31.0 mmol/L 22-32 Anion Gap 5.0 mmol/L 2-11 187 Glucose 131 mg/dL High 70-100 BUN 13 mg/dL 6-24 Creatinine 0.90 mg/dL 0.50-1.40 One Over Creatinine 1.10 BUN/Creatinine Ratio 14.4 8-20 Calcium 8.5 mg/dL 8.1-9.9 Total Protein 6.1 GM/DL Low 6.2-8.1 Albumin 3.4 GM/DL 3.2-5.2 Globulin 2.7 GM/DL 2-4 Albumin/Globulin Ratio 1.3 1-3 Bilirubin Total 0.7 mg/dL 0.4-1.5 188 Alkaline Phosphatase 107 U/L 39-117 Alt (SGPT) 18 U/L 17-63 Ast (Sgot) 20 U/L 12-42 eGFR Non- 85.5 > 60 eGFR 110.0 > 60 189 Lipid Panel 06/03/2010 Triglyceride 125 mg/dL 40-200 Cholesterol 233 mg/dL High Less Than 200 190 High Density Lipoprotein 37 mg/dL Low 40-60 191 Cholesterol/HDL Ratio 6.30 AVERAGE High 1-4.97 Low Density Lipoprotein 171 mg/dL High Less Than 100 192 CBC W/Electronic Diff 06/03/2010 White Blood Count 7.6 CUMM 4.8-10.8 Red Cell Count 4.72 CUMM 4.6-6.2 Hemoglobin 15.5 g/dL 14.0-18.0 Hematocrit 46 % 42-52 Mean Corpuscular Volume 97 um3 High 80-94 Mean Corpuscular Hemoglob 33 pg High 27-31 Mean Corpuscular HGB Cone 34 g/dL 32-36 Redcell Distribution WDTH 14 % 10.5-15 Platelet Count 181 CUMM 150-450 Mean Platelet Volume 9.9 um3 7.4-10.4 193 Manual Differential 06/03/2010 Polysegmented Neutrophil 55 % 38-83 Lymphocyte 21 % Low 25-47 Monocyte 16 % High 0-13 Eosinophil 6 % 0-6 Basophil 1 % 0-2 Atypical Lymph 1 % 0-6 Absolute Neutrophil Count 4.1 Anisocytosis SLIGHT Macrocytosis SLIGHT Platelet Evaluation LARGE Laboratory test finding 06/03/2010 PSA Screening 0.43 NG/ML 0-4 194 Surgical Pathology 11/23/2008 Surgical Pathology 195 <SEE NOTE> Comp Metabolic Panel 10/17/2008 Sodium 138 mmol/L 135-145 168 Potassium 4.2 mmol/L 3.5-5.0 168 Chloride 102 mmol/L 101-111 168 Co2 (Carbon Dioxide) 30.0 mmol/L 22-32 168 Anion Gap 6.0 mmol/L 2-11 168, 196 Glucose 81 mg/dL 70-100 168, 197 BUN 7 mg/dL 6-24 168 Creatinine 0.80 mg/dL 0.50-1.40 168 One Over Creatinine 1.20 168 BUN/Creatinine Ratio 8.8 8-20 168 Calcium 8.7 mg/dL 8.1-9.9 168, 198 Total Protein 5.3 GM/DL Low 6.2-8.1 168 Albumin 2.9 GM/DL Low 3.2-5.2 168 Globulin 2.4 GM/DL 2-4 168 Albumin/Globulin Ratio 1.2 1-3 168 Bilirubin Total 0.7 mg/dL 0.4-1.5 168, 199 Alkaline Phosphatase 86 U/L 39-117 168 Alt (SGPT) 21 U/L 17-63 168 Ast (Sgot) 22 U/L 12-42 168 eGFR Non- 104.8 > 60 168 eGFR 126.8 > 60 168, 200 Lipid Profile (Trig/Chol/HDL) 10/17/2008 Triglyceride 130 mg/dL 40-200 168 Cholesterol 234 mg/dL High Less Than 200 168, 201 High Density Lipoprotein 41 mg/dL 40-60 168, 202 Cholesterol/HDL Ratio 5.71 AVERAGE High 1-4.97 168 Low Density Lipoprotein 167 mg/dL High Less Than 100 168, 203 Liver Function Panel 10/17/2008 Bilirubin Direct 0.1 mg/dL 0.1-0.5 168 Indirect Bilirubin 0.6 mg/dL 0.1-0.75 168 Laboratory test finding 10/17/2008 Hemoglobin A1c 5.0 % <6.0 168, 204 Comp Metabolic Panel 08/07/2008 Sodium 144 mmol/L 135-145 Potassium 4.5 mmol/L 3.5-5.0 Chloride 108 mmol/L 101-111 Co2 (Carbon Dioxide) 28.0 mmol/L 22-32 Anion Gap 8.0 mmol/L 2-11 205 Glucose 94 mg/dL 70-100 206 BUN 10 mg/dL 6-24 Creatinine 0.80 mg/dL 0.50-1.40 One Over Creatinine 1.20 BUN/Creatinine Ratio 12.5 8-20 Calcium 8.6 mg/dL 8.1-9.9 207 Total Protein 5.5 GM/DL Low 6.2-8.1 Albumin [...] 2-16 Alcohol < 10.0 mg/dL None Detected 208 Hepatitis B Surface Ag NEGATIVE Negative Hepatitis [...] Eosinophils 0 0-0.6 Abs Basophils 0.1 0-0.2 209 P33S 07/25/2008 Sodium 134 mmol/L Low 135-145 Potassium 4.4 mmol/L 3.5-5.0 Chloride 96 mmol/L Low 101-111 Co2 (Carbon Dioxide) 27.0 mmol/L 22-32 Anion Gap 11.0 mmol/L 2-11 210 Glucose 95 mg/dL 70-100 211 BUN 20 mg/dL 6-24 Creatinine 1.00 mg/dL 0.50-1.40 One Over Creatinine 1.00 BUN/Creatinine Ratio 20.0 8-20 Calcium 8.9 mg/dL 8.1-9.9 212 Total Protein 5.4 GM/DL Low 6.2-8.1 Albumin 2.9 GM/DL Low 3.2-5.2 Globulin 2.5 GM/DL 2-4 Albumin/Globulin Ratio 1.2 1-3 Bilirubin Total 3.4 mg/dL High 0.4-1.5 Alkaline Phosphatase 382 U/L High 39-117 Alt (SGPT) 555 U/L High 17-63 213 Ast (Sgot) 1013 U/L High 12-42 214 Laboratory test finding 07/25/2008 Lipase 46 U/L 22-51 Troponin-I (TnI) 0.04 NG/ML 0-0.06 215 Laboratory test finding 03/12/2008 PSA,Diagnostic 0.38 NG/ML 0-4 216 Comp Metabolic Panel 12/29/2007 Sodium 140 mmol/L 135-145 217 Potassium 5.2 mmol/L High 3.5-5.0 217 Chloride 105 mmol/L 101-111 217 Co2 (Carbon Dioxide) 33.0 mmol/L High 22-32 217 Anion Gap 2.0 mmol/L 2-11 217, 218 Glucose 91 mg/dL 70-100 217, 219 BUN 13 mg/dL 6-24 217 Creatinine 0.9 mg/dL 0.5-1.4 217 One Over Creatinine 1.11 217 BUN/Creatinine Ratio 14.4 8-20 217 Calcium 9.3 mg/dL 8.1-9.9 217, 220 Total Protein 6.3 GM/DL 6.2-8.1 217 Albumin 3.4 GM/DL Low 3.6-5.4 217 Globulin 2.9 GM/DL 2-4 217 Albumin/Globulin Ratio 1.2 1-3 217 Bilirubin Total 0.4 mg/dL 0.4-1.5 217 Alkaline Phosphatase 99 U/L 39-117 217 Alt (SGPT) 40 U/L 17-63 217 Ast (Sgot) 35 U/L 12-42 217 Basic Metabolic Panel 12/06/2007 Sodium 138 mmol/L 135-145 Potassium 4.3 mmol/L 3.5-5.0 Chloride 101 mmol/L 101-111 Co2 (Carbon Dioxide) 33.0 mmol/L High 22-32 Anion Gap 4.0 mmol/L 2-11 221 Glucose 87 mg/dL 70-100 222 BUN 22 mg/dL 6-24 Creatinine 1.0 mg/dL 0.5-1.4 One Over Creatinine 1.00 BUN/Creatinine Ratio 22.0 High 8-20 Calcium 9.1 mg/dL 8.1-9.9 223 Liver Function Panel 12/06/2007 Total Protein 6.3 [...] 2-16 Alcohol < 10.0 mg/dL None Detected 224 Thyroxine Free 0.68 NG/ML 0.61-1.24 225 TSH 2.54 MIU/ML 0.34-5.60 Hemoglobin A1c 5.3 % <6.0 226 Protime 12/01/2007 Protime 11.7 10.9-13.3 Inr 0.93 227 Laboratory test finding 12/01/2007 PTT (Aptt) Stat 22.6 20.1-28.2 228 CBC With Electronic Diff Stat 12/01/2007 White [...] Eosinophils 0 0-0.6 Abs Basophils 0 0-0.2 229 P33S 12/01/2007 Sodium 140 mmol/L 135-145 Potassium 3.9 mmol/L 3.5-5.0 Chloride 99 mmol/L Low 101-111 Co2 (Carbon Dioxide) 30.0 mmol/L 22-32 Anion Gap 11.0 mmol/L 2-11 230 Glucose 127 mg/dL High 70-100 231 BUN 19 mg/dL 6-24 Creatinine 1.0 mg/dL 0.5-1.4 One Over Creatinine 1.00 BUN/Creatinine Ratio 19.0 8-20 Calcium 9.6 mg/dL 8.1-9.9 232 Total Protein 7.3 GM/DL 6.2-8.1 Albumin 3.9 GM/DL 3.6-5.4 Globulin 3.4 GM/DL 2-4 Albumin/Globulin Ratio 1.1 1-3 Bilirubin Total 1.0 mg/dL 0.4-1.5 Alkaline Phosphatase 106 U/L 39-117 Alt (SGPT) 71 U/L High 17-63 Ast (Sgot) 83 U/L High 12-42 Laboratory test finding 12/01/2007 Troponin-I (TnI) 0.02 NG/ML 0-0.06 233 CBC With Electronic Diff Stat 10/19/2007 White [...] PCP Urine Screen NONE DETECTED None Detect 234 P33S 10/19/2007 Sodium 141 mmol/L 135-145 Potassium 4.8 mmol/L 3.5-5.0 Chloride 108 mmol/L 101-111 Co2 (Carbon Dioxide) 28.0 mmol/L 22-32 Anion Gap 5.0 mmol/L 2-11 235 Glucose 80 mg/dL 70-105 BUN 24 mg/dL 6-24 Creatinine 1.1 mg/dL 0.5-1.4 One Over Creatinine 0.90 BUN/Creatinine Ratio 21.8 High 8-20 Calcium 7.3 mg/dL Low 8.1-9.9 236 Total Protein 5.7 GM/DL Low 6.2-8.1 Albumin 3.0 GM/DL Low 3.6-5.4 Globulin 2.7 GM/DL 2-4 Albumin/Globulin Ratio 1.1 1-3 Bilirubin Total 1.0 mg/dL 0.4-1.5 Alkaline Phosphatase 82 U/L 39-117 Alt (SGPT) 28 U/L 17-63 Ast (Sgot) 53 U/L High 12-42 Alcohol Stat 10/19/2007 Alcohol 374.5 mg/dL High None Detected 237 Basic Metabolic Panel 10/07/2007 Sodium 141 mmol/L 135-145 238 Potassium 4.2 mmol/L 3.5-5.0 238 Chloride 105 mmol/L 101-111 238 Co2 (Carbon Dioxide) 31.0 mmol/L 22-32 238 Anion Gap 5.0 mmol/L 2-11 238, 239 Glucose 91 mg/dL 70-105 238 BUN 25 mg/dL High 6-24 238 Creatinine 0.9 mg/dL 0.5-1.4 238 One Over Creatinine 1.11 238 BUN/Creatinine Ratio 27.8 High 8-20 238 Calcium 8.9 mg/dL 8.1-9.9 238, 240 CBC With Manual Diff 10/07/2007 White Blood Count 5.8 CUMM 4.8-10.8 238 Red Cell Count 4.10 CUMM Low 4.6-6.2 238 Hemoglobin 14.4 g/dL 14.0-18.0 238 Hematocrit 41 % Low 42-52 238 Mean Corpuscular Volume 100 um3 High 80-94 238 Mean Corpuscular Hemoglob 35 pg High 27-31 238 Mean Corpuscular HGB Cone 35 g/dL 32-36 238 Redcell Distribution WDTH 13 % 10.5-15 238 Platelet Count 263 CUMM 150-450 238 Mean Platelet Volume 8.7 um3 7.4-10.4 238 Polysegmented Neutrophil 71 % 38-83 238 Lymphocyte 16 % 5-47 238 Monocyte 11 % 0-13 238 Eosenophil 2 % 0-6 238 Absolute Neutrophil Count 4.1 238 Macrocytosis SLIGHT 238 CBC With Electronic Diff Stat 09/27/2007 White [...] mmol/L 22-32 Anion Gap 6.0 mmol/L 2-11 241 Glucose 101 mg/dL 70-105 BUN 15 mg/dL 6-24 Creatinine 0.9 mg/dL 0.5-1.4 One Over Creatinine 1.11 BUN/Creatinine Ratio 16.7 8-20 Calcium 8.3 mg/dL 8.1-9.9 242 Total Protein 6.5 GM/DL 6.2-8.1 Albumin 3.6 [...] Creatinine 1.11 Anion Gap 6.0 mmol/L 2-11 243 Albumin/Globulin Ratio 1.4 1-3 Albumin 3.6 GM/DL [...] (Trig/Chol/HDL) Cholesterol 183 mg/dL Less Than 200 244 Triglyceride 153 mg/dL 40-200 High Density Lipoprotein 59 mg/dL 40-60 Low Density Lipoprotein 93 mg/dL Less Than 100 245 Laboratory test finding 01/04/2007 TSH 2.33 MIU/ML 0.34-5.60 PSA Screening 1.04 NG/ML 0-4 246 1 Collar Turner: [id number] 2 Collar Turner: [id number] 3 Collar Turner: [id number] 4 Collar Turner: [id number] 5 Collar Turner: [id number] 6 Collar Turner: [id number] 7 Collar Turner: [id number] 8 Collar Turner: [id number] 9 Collar Turner: [id number] 10 Collar Turner: [id number] 11 Collar Turner: [id number] 12 Collar Turner: [id number] 13 Collar Turner: [id number] 14 Collar Turner: [id number] 15 Collar Turner: [id number] 16 Collar Turner: [id number] 17 Collar Turner: [id number] 18 Collar Turner: [id number] 19 Collar Turner: [id number] 20 Collar Turner: [id number] 21 Collar Turner: YRA0202 22 Collar Turner: [id number] 23 Collar Turner: [id number] 24 Collar Turner: [id number] 25 Because ethnic data is not always readily [...] 15-29 5 Kidney failure <15 (or dialysis) 26 Collar Turner: [id number] 27 Collar Turner: [id number] 28 Collar Turner: FNS7770 29 Collar Turner: FXK2133 30 Collar Turner: [id number] 31 Collar Turner: IYH1684 32 Collar Turner: RFS5305 33 Collar Turner: XHN1975 34 Collar Turner: FYB5666 35 Collar Turner: SHJ3940 36 Because ethnic data is not always readily [...] 15-29 5 Kidney failure <15 (or dialysis) 37 Collar Turner: [id number] 38 Collar Turner: [id number] 39 Collar Turner: [id number] 40 Collar Turner: EIX7519 41 Collar Turner: RSS0402 42 Collar Turner: [id number] 43 Collar Turner: GWE1086 44 Collar Turner: WIE8526 45 Collar Turner: [id number] 46 Because ethnic data is not always readily [...] 15-29 5 Kidney failure <15 (or dialysis) 47 Collar Turner: ABD0250 48 Collar Turner: [id number] 49 Collar Turner: DIS8510 50 Collar Turner: RUK6682 51 Collar Turner: LAB3552 52 Collar Turner: FKR8537 53 Collar Turner: EQG4046 54 Collar Turner: ARS5368 55 Collar Turner: PAI6963 56 Collar Turner: KUH9481 57 Collar Turner: CLZ2010 58 Because ethnic data is not always readily [...] 15-29 5 Kidney failure <15 (or dialysis) 59 Collar Turner: [id number] 60 Collar Turner: RHO5923 61 Collar Turner: OXE6323 62 Collar Turner: TNN0811 63 Collar Turner: SSD9007 64 Collar Turner: UJP7203 65 Collar Turner: UCH1465 66 Collar Turner: DXC7060 67 Collar Turner: QTN5896 68 Collar Turner: LUO3477 69 Collar Turner: XER3383 70 Because ethnic data is not always readily [...] 15-29 5 Kidney failure <15 (or dialysis) 71 Because ethnic data is not always readily [...] 15-29 5 Kidney failure <15 (or dialysis) 72 Because ethnic data is not always [...] 5 Kidney failure <15 (or dialysis) 73 [id number] 74 SEE RESULT BELOW Name: ALBIN LUEVANO : [address]: Bryn Barnhart MD Acct: [id number] Unit: [id number] AGE: 67 Location: [facility] Re09/28/17 SEX: M Status: REG REF SPEC: [id number] JOHNNY: 09/28/17-1123 [facility] DR: Bryn Barnhart MD REQ: [id number] RECD: 09/28/17 STATUS: COMP _ SOURCE: TOE SPDESC: ORDERED: Culture Stain COMMENTS: [id number] QUERIES: Specimen Description 4TH RIGHT TOE Procedure Result Reported Site Wound/Misc Gram Stain Final 09/29/17- 0746 ML 3+ Neutrophils 1+ Nucleated Cells 1+ Gram Positive Cocci Wound/Misc Culture Final 09/30/17- 1212 ML Organism 1 CORYNEBACTERIUM STRIATUM Quantity 2+ * ML - Main Lab . END OF REPORT DEPARTMENT OF PATHOLOGY, [address] [place] [address] Albin Mario M.D. Director [facility] # [id number] 75 Because ethnic data is not always readily [...] 15-29 5 Kidney failure <15 (or dialysis) 76 Acute inflammation: >10.00 77 Therapeutic target for the treatment of diabetes mellitus patients is <7% HBA1C, and in selective patients <6.0%. Please refer to [place] [employer] diabetic care guidelines for further information. 78 f/u 79 SEE RESULTS BELOW [id number] EPIFIX 3.5 MESH TRANSFUSED 09/17/17 1039 80 SEE RESULTS BELOW [id number] EPIFIX 3.5 MESH TRANSFUSED 09/10/17 1157 81 Collar Turner: [id number] 82 Collar Turner: SZL5932 83 Collar Turner: QUW7876 84 Collar Turner: BFR0664 85 Collar Turner: TWZ0999 86 Collar Turner: HHX4398 87 Collar Turner: SNX1897 88 Collar Turner: ZDD4802 89 Collar Turner: TGX0221 90 Collar Turner: UXL6202 91 Collar Turner: GYP2384 92 Collar Turner: GVS1828 93 Collar Turner: YYN0721 94 Collar Turner: OYQ6966 95 Collar Turner: UJQ7744 96 Collar Turner: VNR2720 97 Collar Turner: QSK9851 98 Collar Turner: YAD6852 99 Collar Turner: OCC7588 100 Collar Turner: FZP3522 101 Collar Turner: PRT5507 102 Collar Turner: YVZ2874 103 Collar Turner: UIK2671 104 Collar Turner: TLT5536 105 Collar Turner: WFY3014 106 Collar Turner: TSD0656 107 Collar Turner: DUJ3772 108 Collar Turner: FWR1553 109 Collar Turner: IJD1437 110 HBO Protocol Collar Turner: PPR0565 111 Collar Turner: SRF1470 112 Collar Turner: PUF6448 113 Collar Turner: BXG9954 114 Collar Turner: ADD9312 115 Collar Turner: EWV2003 116 Collar Turner: FRH6783 117 Collar Turner: AED8512 118 Collar Turner: ZDN8421 119 Collar Turner: XXA7545 120 Collar Turner: SNU3085 121 Collar Turner: BUA4103 122 Collar Turner: OGB8860 123 Collar Turner: RXY8909 124 Collar Turner: LBS9525 125 Collar Turner: UXM8530 126 Collar Turner: DCX5596 127 Collar Turner: NBH7980 128 Collar Turner: TTE0746 129 Collar Turner: RJP1239 130 Collar Turner: BGF4499 131 Collar Turner: QBI7830 132 Collar Turner: WMW8762 133 Collar Turner: ZTM2453 134 Collar Turner: NMS6561 135 Collar Turner: MGI7461 136 Collar Turner: GHB3777 137 Collar Turner: UGA3777 138 Collar Turner: XRK6540 139 Collar Turner: FNU0833 140 Collar Turner: HMZ3606 141 Collar Turner: NYK0068 142 Collar Turner: NCG2238 143 Collar Turner: PRO0727 144 Normal Range 180 to 914 Indeterminate Range 145 to 180 Deficient Range <145 145 Collar Turner: [id number] 146 SEE RESULT BELOW Name: ALBIN LUEVANO : [address]: Janeen Maya MD Acct: [id number] Unit: [id number] AGE: 67 Location: [facility] [id number] Re04/11/17 Dis: 04/14/17 SEX: M Status: DIS IN SPEC: [id number] JOHNNY: 04/13/17-1150 [facility] DR: Steffen Rojas MD REQ: [id number] RECD: 04/13/17 STATUS: JASSI ALEXANDER DR: Riky Nelson MD [...] rubbery cauterized soft tissue and bone fragment. Complex Care Nurse Practitioner sections are submitted in cassettes A and B as follows: A-bone following decalcification and B-ulcer and soft tissue to include inked margin. MICROSCOPIC DESCRIPTION Signed (signature on file) Linh Ruvalcaba MD 12/28 1045 END OF REPORT * ML=Testing performed at Main Lab DEPARTMENT OF PATHOLOGY, [address] [place] [address] Albin Mario M.D. Director [facility] # [id number] 147 SEE RESULT BELOW Name: ALBIN LUEVANO : [address]: Janeen Maya MD Acct: [id number] Unit: [id number] AGE: 67 Location: [place] [address] Re04/11/17 Dis: 04/14/17 SEX: M Status: DIS IN SPEC: [id number] JOHNNY: 04/11/17 [facility] DR: David Moulton MD REQ: [id number] RECD: 04/11/17 STATUS: HILDA ALEXANDER DR: Ramez Akins III, MD _ SOURCE: BLOOD,VENO SPDESC: ORDERED: Blood Cult COMMENTS: Patient is On Antibiotics? NO Procedure Result Reported Site Aerobic Culture Bottle Final 04/16/17- 0 ML No Growth Day 5 Anaerobic Culture Bottle Final 04/16/17- 0 ML No Growth Day 5 * ML - MAIN LAB ([facility]) . END OF REPORT * ML=Testing performed at Main Lab DEPARTMENT OF PATHOLOGY, [address] [place] [address] Albin Mario M.D. Director [facility] # [id number] 148 Because ethnic data is not always readily [...] 15-29 5 Kidney failure <15 (or dialysis) 149 Critical Result LACT:2.2 Called to [id number] at: 22:42:51 by:[id number] Read back by:[id number] [facility] Severe Sepsis and Septic Shock Management Bundle Measure requires all lactic acids initially measuring >2.0 mmol/L be repeated. 150 Please note the change in INR reference range effective 17. 151 SEE RESULT BELOW Name: ALBIN LUEVANO : [address]: Blu Jules MD Acct: [id number] Unit: [id number] AGE: 67 Location: [facility] Re01/25/17 SEX: M Status: DEP REF SPEC: [id number] JOHNNY: 01/25/17-1248 [facility] DR: Blu Jules MD REQ: [id number] RECD: 01/25/17119 STATUS: JASSI ALEXANDER DR: Ramez Akins III, [...] performed at Main Lab DEPARTMENT OF PATHOLOGY, [address] [place] [address] Albin Mario M.D. Director [facility] # [id number] RUN DATE: 01/26/17 [facility] LAB LIVE PAGE 2 Patient: ALBIN LUEVANO [id number] (Continued) GROSS DESCRIPTION (Continued) GROSS DESCRIPTION 1. [...] performed at Main Lab DEPARTMENT OF PATHOLOGY, [address] [place] [address] Albin Mario M.D. Director [facility] # [id number] 152 Because ethnic data is not always readily [...] 15-29 5 Kidney failure <15 (or dialysis) 153 Desirable <150 Borderline high 150-199 High 200-499 Very High >500 154 Desirable <200 Borderline high 200-239 High >239 155 Low <40 Desirable: 40-60 High: >60 156 Desirable: <100 mg/dL Near Optimal: 100-129 mg/dL Borderline High: 130-159 mg/dL High: 160-189 mg/dL Very High: >189 mg/dL 157 [id number] 158 SEE RESULT BELOW Name: ALBIN LUEVANO : [address]: Jennifer Okeefe Acct: [id number] Unit: [id number] AGE: 65 Location: [facility] Re12/27/15 SEX: M Status: DEP ER SPEC: [id number] JOHNNY: 12/27/15-[address]: Anthony HONG REQ: [id number] RECD: 12/28/15-8206 STATUS: RES [facility] : Jennifer Brown III, MD _ SOURCE: [facility]: ORDERED: MRSA/SA SSTI, Culture Stain COMMENTS: [id number] Procedure Result Reported Site MRSA/S. aureus SSTI PCR PENDING Wound/Misc Gram Stain Final 12/28/15- 1342 ML 3+ Epithelial Cells 2+ Neutrophils 3+ Gram Positive Cocci 1+ Gram Positive Bacilli Wound/Misc Culture PENDING * ML - MAIN LAB ([facility]) . END OF REPORT * ML=Testing performed at Main Lab DEPARTMENT OF PATHOLOGY, [address] [place] [address] Albin Mario M.D. Director [facility] # [id number] 159 SEE RESULT BELOW Name: ALBIN LUEVANO : [address]: Jennifer Okeefe Acct: [id number] Unit: [id number] AGE: 65 Location: [facility] Re12/27/15 SEX: M Status: DEP ER SPEC: [id number] JOHNNY: 12/27/15-2144 [facility] DR: Anthony HONG REQ: [id number] RECD: 12/28/15 STATUS: HILDA ALEXANDER DR: Jennifer Brown III, MD _ SOURCE: [facility]: ORDERED: MRSA/SA SSTI, Culture Stain COMMENTS: [id number] Procedure Result Reported Site MRSA/S. aureus SSTI PCR Final 12/28/15- 1516 ML Organism 1 MRSA NEGATIVE Organism 2 S.AUREUS NEGATIVE Wound/Misc Gram Stain Final 12/28/15- 1342 ML 3+ Epithelial Cells 2+ Neutrophils 3+ Gram Positive Cocci 1+ Gram Positive Bacilli Wound/Misc Culture Final 12/30/15- 1202 ML Organism 1 NORMAL ARCENIO * ML - MAIN LAB ([facility]) . END OF REPORT * ML=Testing performed at Main Lab DEPARTMENT OF PATHOLOGY, [address] [place] [address] Albin Mario M.D. Director [facility] # [id number] 160 >100 to <200 pg/mL: likely compensated congestive heart failure (CHF) 200 to 400 pg/mL: likely moderate CHF >400 pg/mL: likely moderate to severe CHF 161 Desirable <150 Borderline high 150-199 High 200-499 Very High >500 162 Desirable <200 Borderline high 200-239 High >239 163 Low <40 Desirable: 40-60 High: >60 164 Desirable: <100 mg/dL Near Optimal: 100-129 mg/dL Borderline High: 130-159 mg/dL High: 160-189 mg/dL Very High: >189 mg/dL 165 Unable to calculate due to low microalbumin 166 Because ethnic data is not always readily [...] 15-29 5 Kidney failure <15 (or dialysis) 167 Microalbuminuria in a random sample is defined as: Microalbumin/Creatinine ratio of 30-299 ug/mg. 168 FASTING 169 Because ethnic data is not always readily [...] 15-29 5 Kidney failure <15 (or dialysis) 170 Desirable <150 Borderline high 150-199 High 200-499 Very High >500 171 Desirable <200 Borderline high 200-239 High >239 172 Low <40 Desirable: 40-60 High: >60 173 Desirable <100 Near Optimal 100-129 Borderline high 130-159 High 160-189 Very High >189 174 FASTING 175 Therapeutic target for the treatment of diabetes Mellitus patients is <7% HBA1C, and in selective patients <6.0%.Please refer to [place] [employer] Diabetic care guidelines for further information. 176 RUN DATE: 07/01/12 [facility] LAB LIVE PAGE 1 RUN TIME: [address] [place] [address] Specimen Inquiry Name: ALBIN LUEVANO : [address]: Amanda Davenport MD Acct: [id number] Unit: [id number] AGE: 62 Location: [facility] Re06/28/12 SEX: M Status: DEP ER SPEC: [id number] JOHNNY: 06/28/12-1749 [facility] DR: Amanda Davenport MD REQ: [id number] RECD: 06/29/12 STATUS: HILDA ALEXANDER DR: Ramez Akins III, MD _ SOURCE: LEG,LEFT SPDESC: [...] performed at Main Lab DEPARTMENT OF PATHOLOGY, [facility] [employer] [place] [address] Albin Mario M.D. Director [facility] Permit #[id number] RUN DATE: 07/01/12 [facility] LAB LIVE PAGE 2 RUN TIME: 942 [facility] [place] [address] Specimen Inquiry Patient: ALBIN LUEVANO [id number] (Continued) Specimen: [id number] Collected: 06/28/12-1749 Received: 06/29/12-1037 (Continued) Procedure Result Verified Site Wound/Misc Culture Final (continued) * These antibiotics are not available in the [facility] Formulary Contact the Microbiology Department for any additional antibiotic reporting. END OF REPORT * ML=Testing performed at Main Lab DEPARTMENT OF PATHOLOGY, [address] [place] [address] Albin Mario M.D. Director [facility] Permit #[id number] 177 Microalbuminuria in a random sample is defined as: Microalbumin/Creatinine ratio of 30-299 ug/mg. 178 * SERUM LEVELS OF PSA MEASURED USING THE GABRIELA JEROME ACCESS HYBRITECH IMMUNOASSAY SHOULD NOT BE INTERPRETED ABSOLUTE EVIDENCE OF THE PRESENCE OR ABSENCE OF DISEASE. THE PSA VALUE SHOULD BE USED IN CONJUNCTION WITH OTHER PERTINENT CLINICAL DIAGNOSTIC PROCEDURES. The values obtained with different assay methods or kits cannot be used interchangeably. 179 CHOLESTEROL INTERPRETATION: Desirable: Less than 200 MG/DL Borderline-High Risk: 200-239 MG/DL High-Risk: 240 MG/DL and over 180 HDL INTERPRETATION: Undesirable: High Risk: Less than 40 MG/DL Desirable: Low Risk: Greater than 60 MG/DL 181 LDL INTERPRETATION: Low Risk Optimal Level: LDL Less than 100 MG/DL Near or Above Optimal: LDL 100-129 MG/DL Borderline High Risk: LDL 130-159 MG/DL High Risk: LDL 160-189 MG/DL Very High Risk: LDL Greater than 189 MG/DL 182 Anion gap measurement may be of limited value in the presence of any alkalosis, especially in a combined acid base disorder. . 183 Because ethnic data is not always readily [...] 15-29 5 Kidney failure <15 (or dialysis) 184 RUN DATE: 03/09/11 [facility] NMI LIVE PAGE 1 RUN TIME: 1101 Specimen Inquiry RUN USER: INTERFACE Name: ALBIN LUEVANO Kandis Status: DEP CLI Re03/07/11 Age/Sex: 61/M Unit#: [id number] Location: [place] : 46 SPEC #: [id number] JOHNNY: 03/07/11 STATUS: RES REQ #: [id number] RECD: 03/08/11 [facility] DR: Nayely Ortiz MD SOURCE: WOUND ENTR: 03/08/11-[address]: Mable PALMA MD, Ramez [facility]: TOE,RIGHT ORDERED: CULT SENS/GS ACT WKST: B 03/09/11 #1 Procedure Result Verified Site > CULTURE SENSITIVITY Preliminary 03/09/11- 1101 ML Organism 1 STAPHYLOCOCCUS AUREUS QUANTITY MANY Organism 2 PSEUDOMONAS SPECIES QUANTITY MODERATE > GRAM STAIN SMEAR Final 03/08/11- 1521 ML POLYS MODERATE SMEAR: MOD GRAM POSITIVE COCCI MOD GRAM NEGATIVE BACILLI [facility] Permit #[id number] [address] [place] [address] DEPARTMENT OF PATHOLOGY, [address] [place] [address] [facility] Permit #[id number] Rex Xiong M.D. Central Supply Technician 185 RUN DATE: 03/10/11 [facility] NMI LIVE PAGE 1 RUN TIME: 8628 Specimen Inquiry RUN USER: INTERFACE Name: ALBIN LUEVANO Status: ANN MARIE CLI Re03/07/11 Age/Sex: 61/M Unit#: [id number] Location: [facility] : 48 SPEC #: [id number] JOHNNY: 03/07/11 STATUS: RES REQ #: [id number] RECD: 03/08/11 [facility] DR: Angel BADILLO,Nayely Chávez SOURCE: WOUND ENTR: 03/08/11-1146 [facility] DR: Mable PALMA MD, Ramez [facility]: TOE,RIGHT ORDERED: CULT SENS/GS ACT WKST: B 03/10/11 #1 Procedure Result Verified Site > CULTURE SENSITIVITY Preliminary 03/10/11- 0925 ML Organism 1 STAPHYLOCOCCUS AUREUS QUANTITY MANY [...] 4 IMIPENEM S <=1 DEPARTMENT OF PATHOLOGY, [address] [place] [address] [facility] Permit #[id number] Rex Xiong M.D. Central Supply Technician RUN DATE: 03/10/11 [facility] NMI LIVE PAGE 2 RUN TIME: 924 Specimen Inquiry RUN USER: INTERFACE Name: ALBIN LUEVANO Status: ANN MARIE GRECO Re03/07/11 Age/Sex: 61/M Unit#: [id number] Location: : 48 -- -- CONTINU ED Procedure Result Verified Site CULTURE SENSITIVITY Preliminary (continued) - +These results are deduced according to CLSI guidelines as they are related to tested antimicrobials with almost identical spectrum of activity. *These antibiotics are not available in the [facility] Formulary. Contact the Microbiology Department for any additional antibiotic reporting. *These antibiotics are not available in the [facility] Formulary. Contact the Microbiology Department for any additional antibiotic reporting. > GRAM STAIN SMEAR Final 03/08/11- 1521 ML POLYS MODERATE SMEAR: MOD GRAM POSITIVE COCCI MOD GRAM NEGATIVE BACILLI - [facility] Permit #[id number] [address] [place] [address] DEPARTMENT OF PATHOLOGY, [address] [place] [address] [facility] Permit #[id number] Albin Mario M.D. Director Mayra Pan M.D. Central Supply Technician 186 RUN DATE: 03/10/11 [facility] NMI LIVE PAGE 1 RUN TIME: 1439 Specimen Inquiry RUN USER: INTERFACE Name: ALBIN LUEVANO Status: DEP CLI Re03/07/11 Age/Sex: 61/M Unit#: [id number] Location: [facility] : 48 SPEC #: [id number] JOHNNY: 03/07/11 STATUS: RES REQ #: [id number] RECD: 03/08/11-[address]: Nayely Ortiz MD SOURCE: WOUND ENTR: 03/08/11-[address]: Mable PALMA MD, Ramez [facility]: TOE,RIGHT ORDERED: CULT SENS/GS Procedure Result Verified [...] 4 IMIPENEM S <=1 DEPARTMENT OF PATHOLOGY, [address] [place] [address] [facility] Permit #[id number] Albin Sudilovsky,MOniel Pan M.D. Central Supply Technician RUN DATE: 03/10/11 [facility] NMI LIVE PAGE 2 RUN TIME: 0501 Specimen Inquiry RUN USER: INTERFACE Name: ALLISONALBIN Kandis Status: DEP CLI Re03/07/11 Age/Sex: 61/M Unit#: [id number] Location: : 48 -- -- CONTINU ED Procedure Result Verified Site CULTURE SENSITIVITY Preliminary (continued) - +These results are deduced according to CLSI guidelines as they are related to tested antimicrobials with almost identical spectrum of activity. *These antibiotics are not available in the [facility] Formulary. Contact the Microbiology Department for any additional antibiotic reporting. *These antibiotics are not available in the [facility] Formulary. Contact the Microbiology Department for any additional antibiotic reporting. > GRAM STAIN SMEAR Final 03/08/11- 1521 ML POLYS MODERATE SMEAR: MOD GRAM POSITIVE COCCI MOD GRAM NEGATIVE BACILLI - [facility] Permit #[id number] [address] [place] [address] DEPARTMENT OF PATHOLOGY, [address] [place] [address] [facility] Permit #[id number] Albin Mario M.D. Director Mayra Pan M.D. Central Supply Technician 187 Anion gap measurement may be of limited value in the presence of any alkalosis, especially in a combined acid base disorder. . 188 A metabolite of Naproxen, O-desmethylnaproxen, has been shown to interfere with the Jendrassik-Bassem method for measuring total bilirubin. Samples from patients who have taken Naproxen have shown spurious elevation in total bilirubin levels. 189 Because ethnic data is not always readily [...] 15-29 5 Kidney failure <15 (or dialysis) 190 CHOLESTEROL INTERPRETATION: Desirable: Less than 200 MG/DL Borderline-High Risk: 200-239 MG/DL High-Risk: 240 MG/DL and over 191 HDL INTERPRETATION: Undesirable: High Risk: Less than 40 MG/DL Desirable: Low Risk: Greater than 60 MG/DL 192 LDL INTERPRETATION: Low Risk Optimal Level: LDL Less than 100 MG/DL Near or Above Optimal: LDL 100-129 MG/DL Borderline High Risk: LDL 130-159 MG/DL High Risk: LDL 160-189 MG/DL Very High Risk: LDL Greater than 189 MG/DL 193 Imm. [address] 1 194 * SERUM LEVELS OF PSA MEASURED USING THE GABRIELA JEROME ACCESS HYBRITECH IMMUNOASSAY SHOULD NOT BE INTERPRETED ABSOLUTE EVIDENCE OF THE PRESENCE OR ABSENCE OF DISEASE. THE PSA VALUE SHOULD BE USED IN CONJUNCTION WITH OTHER PERTINENT CLINICAL DIAGNOSTIC PROCEDURES. A PSA value in the range of 0.1 to 0.6 ng/ml is indeterminate if being used as an indicator of recurrent or residual disease. . 195 ----- RUN DATE: 11/27/08 [facility] NMI LIVE PAGE 1 RUN TIME: 1407 Specimen Inquiry RUN USER: INTERFACE -- Name: ALBIN LUEVANO Status: REG REF Re11/23/08 Age/Sex: 58/M Unit#: [id number] Location: [facility] : 48 -- Specimen: [id number] [id number] Spec Date: 11/23/[address]: Varun Mccarty MD Spec Type: SURGICAL P Received: 11/26/08-1040 Copies to: Ramez Akins III, MD SPECIMEN BIOPSY DISTAL ESOPHAGUS HISTORY POST-OP DIAGNOSIS: Pancolonic divertics, severe gastroesophageal reflux d isease, alcoholic gastropathy CLINICAL INFORMATION: Follow up colon polyp, gastroesophageal reflux dise ase, nausea and vomiting GROSS DESCRIPTION Specimen received in formalin labelled Albin Luevano, Distal Esophagus and consists of multiple, [...] 11/27/08 1407 -- -- DEPARTMENT OF PATHOLOGY, [address] [place] [address] [facility] Permit #[id number] Albin Mario M.D. Director Mayra Pan M.D. Senior Operations Analyst Dir екатерина -- 196 Anion gap measurement may be of limited value in the presence of any alkalosis, especially in a combined acid base disorder. . 197 Note change in reference range as of 12/01/07. The change was based on recommendations from the [place] [employer]. 198 Please note change in reference range effective 07 . 199 A metabolite of Naproxen, O-desmethylnaproxen, has been shown to interfere with the Jendrassik-Bassem method for measuring total bilirubin. Samples from patients who have taken Naproxen have shown spurious elevation in total bilirubin levels. 200 Because ethnic data is not always readily [...] 15-29 5 Kidney failure <15 (or dialysis) 201 CHOLESTEROL INTERPRETATION: Desirable: Less than 200 MG/DL Borderline-High Risk: 200-239 MG/DL High-Risk: 240 MG/DL and over 202 HDL INTERPRETATION: Undesirable: High Risk: Less than 40 MG/DL Desirable: Low Risk: Greater than 60 MG/DL 203 LDL INTERPRETATION: Low Risk Optimal Level: LDL Less than 100 MG/DL Near or Above Optimal: LDL 100-129 MG/DL Borderline High Risk: LDL 130-159 MG/DL High Risk: LDL 160-189 MG/DL Very High Risk: LDL Greater than 189 MG/DL 204 THERAPEUTIC TARGET FOR THE TREATMENT OF DIABETES MELLITUS PATIENTS IS <7% HBA1C, AND IN SELECTIVE PATIENTS <6.0%. PLEASE REFER TO [place] [employer] DIABETIC CARE GUIDELINES FOR FURTHER INFORMATION. 205 Anion gap measurement may be of limited value in the presence of any alkalosis, especially in a combined acid base disorder. . 206 Note change in reference range as of 12/01/07. The change was based on recommendations from the [place] [employer]. 207 Please note change in reference range effective 07 . 208 The detection limit for ETHANOL is 10.0 mg/dl . Values less than 10.0 mg/dl cannot be accurately measured. . 209 Lymphopenia % 210 Anion gap measurement may be of limited value in the presence of any alkalosis, especially in a combined acid base disorder. . 211 Note change in reference range as of 12/01/07. The change was based on recommendations from the [place] [employer]. 212 Please note change in reference range effective 07 . 213 RESULTS VERIFIED BY REPEAT ANALYSIS ON THE SAME SAMPLE. REPEATED RESULT IS:557 VERBAL TO ELÍAS TAVERAS at 1701 on 07/25/08. Results read back accurately. 214 RESULTS VERIFIED BY REPEAT ANALYSIS ON THE SAME SAMPLE. REPEATED RESULT IS:1022 VERBAL TO ELÍAS BY NITIN at 1701 on 07/25/08. Results read back accurately. 215 New Reference Range and Interpretation effective 01/13/02 TnI (ng/ml) INTERPRETATION <0.06 ng/ml NOT SUPPORTIVE OF DIAGNOSIS OF [place] 0.06 - 0.50 ng/ml INDETERMINATE: SUGGEST SERIAL STUDIES IF CLINICALLY INDICATED. > 0.5 ng/ml CONSISTENT WITH DIAGNOSIS OF [place] . 216 * SERUM LEVELS OF PSA MEASURED USING THE GABRIELA [employer] Master ACCESS HYBRITECH IMMUNOASSAY SHOULD NOT BE INTERPRETED ABSOLUTE EVIDENCE OF THE PRESENCE OR ABSENCE OF DISEASE. THE PSA VALUE SHOULD BE USED IN CONJUNCTION WITH OTHER PERTINENT CLINICAL DIAGNOSTIC PROCEDURES. A PSA value in the range of 0.1 to 0.6 ng/ml is indeterminate if being used as an indicator of recurrent or residual disease. . 217 PATIENT MAY HAVE RESULTS PER DOCTOR'S AUTHORIZATION. Questions regarding this report should be directed to your doctor. 218 Anion gap measurement may be of limited value in the presence of any alkalosis, especially in a combined acid base disorder. . 219 Note change in reference range as of 12/01/07. The change was based on recommendations from the [place] [employer]. 220 Please note change in reference range effective 07 . 221 Anion gap measurement may be of limited value in the presence of any alkalosis, especially in a combined acid base disorder. . 222 Note change in reference range as of 12/01/07. The change was based on recommendations from the [place] [employer]. 223 Please note change in reference range effective 07 . 224 The detection limit for ETHANOL is 10.0 mg/dl . Values less than 10.0 mg/dl cannot be accurately measured. . 225 PLEASE NOTE NEW REFERENCE RANGES. 226 THERAPEUTIC TARGET FOR THE TREATMENT OF DIABETES MELLITUS PATIENTS IS <7% HBA1C, AND IN SELECTIVE PATIENTS <6.0%. PLEASE REFER TO [place] [employer] DIABETIC CARE GUIDELINES FOR FURTHER INFORMATION. 227 JOAO VALUE=2.01 ( OF 03/18/07 Recommended INR for Patients on Oral Anticoagulants Prophylaxis 2.0 - 3.0 Treatment of thrombosis 2.0 - 3.0 Prevention of embolism 2.0 - 3.0 Prevention of embolism from prosthetic heart valves 2.5 - 3.5 228 PLEASE NOTE NEW REFERENCE RANGE EFFECTIVE 07. 229 Lymphopenia % 230 Anion gap measurement may be of limited value in the presence of any alkalosis, especially in a combined acid base disorder. . 231 Note change in reference range as of 12/01/07. The change was based on recommendations from the [place] [employer]. 232 Please note change in reference range effective 07 . 233 New Reference Range and Interpretation effective 01/13/02 TnI (ng/ml) INTERPRETATION <0.06 ng/ml NOT SUPPORTIVE OF DIAGNOSIS OF [place] 0.06 - 0.50 ng/ml INDETERMINATE: SUGGEST SERIAL STUDIES IF CLINICALLY INDICATED. > 0.5 ng/ml CONSISTENT WITH DIAGNOSIS OF [place] . 234 THE URINE SPECIMEN WAS TESTED AT THE LISTED CUTOFFS: DRUG CLASS TEST LEVEL (NG/ML) AMPHETAMINES 300 BARBITUATES 200 BENZODIAZEPINE METABOLITES 200 COCAINE METABOLITES 300 CANNABINOIDS 25 OPIATES 200 PCP 25 THIS IS A SCREENING PROCEDURE. POSITIVE RESULTS ARE NOT CONFIRMED. SPECIMEN WAS RECEIVED WITHOUT CHAIN OF CUSTODY. RESULTS SHOULD BE USED FOR MEDICAL PURPOSES ONLY. . 235 Anion gap measurement may be of limited value in the presence of any alkalosis, especially in a combined acid base disorder. . 236 Please note change in reference range effective 07 . 237 VERBAL TO GRAZYNA IN ER BY CELIA at 1613 on 10/19/07. Results read back accurately. RESULTS VERIFIED BY REPEAT ANALYSIS ON THE SAME SAMPLE. REPEATED RESULT IS:354.6/R The detection limit for ETHANOL is 10.0 mg/dl . Values less than 10.0 mg/dl cannot be accurately measured. . 238 OR 10/11/07 239 Anion gap measurement may be of limited value in the presence of any alkalosis, especially in a combined acid base disorder. . 240 Please note change in reference range effective 07 . 241 Anion gap measurement may be of limited value in the presence of any alkalosis, especially in a combined acid base disorder. . 242 Please note change in reference range effective 07 . 243 Anion gap measurement may be of limited value in the presence of any alkalosis, especially in a combined acid base disorder. . 244 Classification: Desirable . 245 CALCULATED LDL APPROXIMATES THE VALUE OF A DIRECT LDL MEASUREMENT. Classification: Optimal Level . 246 * SERUM LEVELS OF PSA MEASURED USING THE [email or web address] ACCESS HYBRITECH IMMUNOASSAY SHOULD NOT BE INTERPRETED ABSOLUTE EVIDENCE OF THE PRESENCE OR ABSENCE OF DISEASE. THE PSA VALUE SHOULD BE USED IN CONJUNCTION WITH OTHER PERTINENT CLINICAL DIAGNOSTIC PROCEDURES. Procedures Date CPT Code Description Status 12/03/2017 38020 Removal Devitalization Tissue Wound Less Than Equal 20 Completed Square CM 11/25/2017 27210 Hyperbaric Oxygen Therapy By Physician Completed 11/23/2017 00553 Hyperbaric Oxygen Therapy By Physician Completed 11/23/2017 69788 Apply Total Contact Leg Cast Completed 11/18/2017 95129 Hyperbaric Oxygen Therapy By Physician Completed 11/17/2017 08125 Hyperbaric Oxygen Therapy By Physician Completed 11/16/2017 06272 Hyperbaric Oxygen Therapy By Physician Completed 11/12/2017 70296 Hyperbaric Oxygen Therapy By Physician Completed 11/12/2017 86602 Removal Devitalization Tissue Wound Less Than Equal 20 Completed Square CM 11/11/2017 11086 Hyperbaric Oxygen Therapy By Physician Completed 11/10/2017 36045 Hyperbaric Oxygen Therapy By Physician Completed 11/09/2017 06170 Hyperbaric Oxygen Therapy By Physician Completed 11/05/2017 91268 Hyperbaric Oxygen Therapy By Physician Completed 11/04/2017 91631 Hyperbaric Oxygen Therapy By Physician Completed 11/03/2017 77860 Hyperbaric Oxygen Therapy By Physician Completed 11/02/2017 84988 Hyperbaric Oxygen Therapy By Physician Completed 10/29/2017 28655 Removal Devitalization Tissue Wound Less Than Equal 20 Completed Square CM 10/28/2017 81840 Hyperbaric Oxygen Therapy By Physician Completed 10/27/2017 00207 Hyperbaric Oxygen Therapy By Physician Completed 10/26/2017 41417 Hyperbaric Oxygen Therapy By Physician Completed 10/22/2017 14448 Hyperbaric Oxygen Therapy By Physician Completed 10/22/2017 30355 Removal Devitalization Tissue Wound Less Than Equal 20 Completed Square CM 10/21/2017 31015 Hyperbaric Oxygen Therapy By Physician Completed 10/20/2017 95155 Hyperbaric Oxygen Therapy By Physician Completed 10/19/2017 89750 Hyperbaric Oxygen Therapy By Physician Completed 10/15/2017 86887 Hyperbaric Oxygen Therapy By Physician Completed 10/14/2017 53449 Hyperbaric Oxygen Therapy By Physician Completed 10/14/2017 06429 Removal Devitalization Tissue Wound Less Than Equal 20 Completed Square CM 10/12/2017 25979 Hyperbaric Oxygen Therapy By Physician Completed 10/08/2017 80609 Apply Total Contact Leg Cast Completed 10/01/2017 63372 Apply Total Contact Leg Cast Completed 09/17/2017 11063 Application Skin Graft Face,Scalp,Eyelids,Mouth, Neck Completed Up To 100CM 09/10/2017 65561 Application Skin Substitute Graft Trunk,Arms Lets Up To Completed 100 SQ CM 08/27/2017 99178 Removal Devitalized Tissue Wound Greater Than 20 Square Completed CM 08/27/2017 21724 Removal Devitalization Tissue Wound Less Than Equal 20 Completed Square CM 08/13/2017 92430 Hyperbaric Oxygen Therapy By Physician Completed 08/12/2017 34950 Hyperbaric Oxygen Therapy By Physician Completed 08/11/2017 58128 Hyperbaric Oxygen Therapy By Physician Completed 08/06/2017 56414 Hyperbaric Oxygen Therapy By Physician Completed 08/04/2017 32235 Hyperbaric Oxygen Therapy By Physician Completed 08/03/2017 87449 Hyperbaric Oxygen Therapy By Physician Completed 08/02/2017 97300 Hyperbaric Oxygen Therapy By Physician Completed 07/30/2017 97562 Hyperbaric Oxygen Therapy By Physician Completed 07/29/2017 31428 Hyperbaric Oxygen Therapy By Physician Completed 07/28/2017 77309 Hyperbaric Oxygen Therapy By Physician Completed 07/27/2017 22865 Hyperbaric Oxygen Therapy By Physician Completed 07/23/2017 08716 Debridement Skin,& sq Tissue Completed 07/23/2017 04878 Debridement Muscle/Fascia,Epidermis/Dermis/Tissue,1St Completed 20 SQ CM 07/22/2017 27723 Hyperbaric Oxygen Therapy By Physician Completed 07/21/2017 07071 Hyperbaric Oxygen Therapy By Physician Completed 07/20/2017 80169 Hyperbaric Oxygen Therapy By Physician Completed 07/19/2017 19054 Hyperbaric Oxygen Therapy By Physician Completed 07/15/2017 55813 Hyperbaric Oxygen Therapy By Physician Completed 07/14/2017 94366 Hyperbaric Oxygen Therapy By Physician Completed 07/13/2017 59580 Hyperbaric Oxygen Therapy By Physician Completed 07/12/2017 22652 Hyperbaric Oxygen Therapy By Physician Completed 07/02/2017 28976 Hyperbaric Oxygen Therapy By Physician Completed 07/01/2017 93689 Hyperbaric Oxygen Therapy By Physician Completed 06/30/2017 51776 Hyperbaric Oxygen Therapy By Physician Completed 06/29/2017 37925 Hyperbaric Oxygen Therapy By Physician Completed 06/28/2017 20801 Hyperbaric Oxygen Therapy By Physician Completed 06/28/2017 67440 Hyperbaric Oxygen Therapy By Physician Completed 06/25/2017 70199 Hyperbaric Oxygen Therapy By Physician Completed 06/24/2017 90350 Hyperbaric Oxygen Therapy By Physician Completed 06/24/2017 00146 Removal Devitalization Tissue Wound Less Than Equal 20 Completed Square CM 06/24/2017 43277 Debridement Skin,& sq Tissue Completed 06/23/2017 83944 Hyperbaric Oxygen Therapy By Physician Completed 06/23/2017 85341 Hyperbaric Oxygen Therapy By Physician Completed 06/18/2017 63103 Debridement Skin, Subcutaneous Tissue & Muscle Completed 06/11/2017 36700 Apply Total Contact Leg Cast Completed 06/04/2017 32188 Debridement Skin,& sq Tissue Completed 06/04/2017 91882 Debridement Muscle/Fascia,Epidermis/Dermis/Tissue,1St Completed 20 SQ CM 06/04/2017 80749 Removal Devitalization Tissue Wound Less Than Equal 20 Completed Square CM 05/28/2017 05933 Debridement Muscle/Fascia,Epidermis/Dermis/Tissue,Addtl Completed 20 SQ CM 05/28/2017 76722 Debridement Skin, Subcutaneous Tissue & Muscle Completed 05/21/2017 89591 Debridement Skin, Subcutaneous Tissue & Muscle Completed 05/02/2017 36869 ECHO Transthorasic Realtime 2D W Doppler & Color Flow Completed Hosp 04/13/2017 67456 Amputation Metatarsal W/Toe Completed 03/29/2017 75055 EKG Tracing & Interpretation Completed 01/25/2017 Colonoscopy Completed 11/12/2016 96705 EKG Tracing & Interpretation Completed 04/15/2016 47926 Holter Monitor Review (24 hr)dr review & interp only Completed 04/14/2016 72268 ECG Monitor/Recording W/Visual Superimposition Scanning Completed 03/31/2016 59624 EKG Tracing & Interpretation Completed 03/23/2016 00663 Sleep Study Unattended,HRT Rate,Oxygen Sat,Resp Completed Effort/Airflow 03/23/2016 36894 ECHO Transthoracic, Real-Time 2D With Doppler And Color Completed Flow 02/26/2016 04134 EKG Tracing & Interpretation Completed 07/15/2012 Diabetic Retinal Eye Exam Completed 11/23/2008 Colonoscopy Completed 12/09/2007 30269 Treadmill Interp/Report Only Completed 12/09/2007 67143 Treadmill Interp/Report Only Completed 12/09/2007 78068 Stress Test Supervsn W/Out I/R Completed 12/06/2007 21146 EKG Tracing & Interpretation Completed 12/06/2007 01891 EKG Tracing & Interpretation Completed Encounters Type Date Location Provider CPT E/M Dx Office Visit 11/17/2017 [facility] D[facility] Keller Maria Ines, [address] L89.624 9:15a [facility] M86.271 Office Visit 10/26/2017 12:52p [facility] [place] [address] M86.671 Infectious Diseases Rex Barnhart Z79.2 L89.620 Office Visit 09/28/2017 10:10a [facility] [place] [address] L89.624 Infectious Diseases Rex Barnhart E11.621 M86.171 E11.69 Office Visit 09/22/2017 1:45p [place] [address] L89.624 [facility] Office Visit 08/24/2017 1:30p W[facility] Care Center AT Lazaro Casarez, [address] E11.621 [facility] Rex L89.624 Office Visit 08/20/2017 10:00a [place] [address] L89.624 [facility] L89.610 E08.621 M86.172 E66.01 T81.31xD E11.621 T86.821 Office Visit 08/17/2017 10:15a [facility] Lazaro Casarez, [address] E11.621 AT [facility] Rex L89.624 M86.172 E66.01 Office Visit 08/06/2017 11:00a [place] [address] L89.624 [facility] Office Visit 07/30/2017 11:00a [place] [place] [address] L89.624 [facility] L89.610 E08.621 M86.172 E66.01 T81.31xD E11.621 T86.821 Office Visit 07/02/2017 1:30p [facility] [place] [address] L89.624 AT [facility] Rex E11.621 E66.01 Office Visit 06/29/2017 12:45p [facility] Lazaro HernandezMartita Casarez, 40640 L89.624 AT [facility] Rex L89.610 E11.621 Office Visit 06/28/2017 1:30p [facility] Aretha Oliva DNP, [address] T81.31xA AT [facility] RN, CORPORATE OPERATIONS COMPLIANCE MANAGER-BC L89.622 S81.801A M86.172 Office Visit 06/23/2017 2:00p [facility] AT Mayra Cyr, [address]65 L89.624 [facility] Office Visit 05/11/2017 9:36a [facility] [place] [address] L89.622 Hospitalists Annie roblero, SHANTELL L03.116 F10.239 J96.01 Office Visit 05/10/2017 [facility] Cleopatra De Paz, 02043 L89.622 9:33a Assoc, 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 L03.116 F10.239 L89.622 Office Visit 05/06/2017 9:21a [facility],cecille Arguelles, 97434 J96.01 Hospitalists D.O. L03.116 F10.239 L89.622 Office Visit 05/05/2017 9:19a [facility] Lydia Arguelles, 40847 J96.01 Hospitalists D.O. L03.116 F10.239 L89.622 Office Visit 05/04/2017 9:17a [facility] Lydia Arguelles, 46560 J96.01 Hospitalists D.O. L03.116 F10.239 L89.622 Office Visit 05/03/2017 [facility] [address] T81.31xA Infectious Diseases Rex Barnhart E11.621 L97.429 L97.529 J96.01 N50.812 Office Visit 05/03/2017 9:15a [facility], Lydia Arguelles, 84255 J96.01 Hospitalists D.O. L03.116 F10.239 L89.622 Office Visit 05/02/2017 9:12a [facility] Lydai Hajir, 00965 J96.01 Hospitalists D.O. L03.116 F10.239 L89.622 Office Visit 05/01/2017 9:10a [facility], Lydia Arguelles, 17473 L03.116 Hospitalists DMartitaOMartita L89.622 F10.10 I48.0 Office Visit 04/30/2017 [facility] Jose R Pereira, 33903 L03.116 Hospitalists Rex L89.622 F10.10 I48.0 Office Visit 04/12/2017 [facility] [address] M86.172 Assoc, Hospitalists GAS SHOVEL OPERATOR L97.509 E11.621 E66.01 Office Visit 04/12/2017 7:00a [facility] Ro[facility], 01760 M86.172 Pump Tender Office Visit 04/11/2017 9:53a [facility] [facility], Riky Nelson, 66695 M86.172 Hospitalists Rex L97.509 E11.621 E66.01 Office Visit 03/29/2017 4:00p [facility], 85845 Z01.810 [facility] DO FACC I10 E11.9 R60.0 E66.8 I48.91 Office Visit 11/12/2016 4:00p [facility] [place] [address] I48.91 [facility] FACC I10 G47.9 E11.9 Office Visit 08/10/2016 3:10p [facility] Internal Medicine - Nurse Visit C 64599 I10 [place] Office Visit 07/10/2016 4:00p [facility] Clementeno, 76062 I48.91 [facility] DO FACC G47.9 I10 Office Visit 03/31/2016 4:00p [facility] [place] [address] I48.91 [facility] FACC E66.8 I10 G47.9 E78.00 Office Visit 03/04/2016 4:00p [facility] Internal Medicine - Ramez Akins, 23905 I48.91 Ranjit Goodman Office Visit 02/26/2016 9:15a [facility], Vito [address]38[address] I48.91 Hospitalists HAL Grossman E11.9 E66.01 I10 Office Visit 02/26/2016 1:00p [facility] Internal Medicine Ramez Akins, 02019 I48.91 - Ranjit Goodman E11.9 R09.02 Office Visit 10/24/2015 2:45p [facility] [address] G47.9 Services Of [facility] E66.01 R09.02 Office Visit 05/28/2015 2:40p [facility] Internal Medicine Ramez Akins, 09663 E11.9 - Carson Goodman I10 E78.0 F41.3 Z23 Office Visit 11/20/2014 3:20p [facility] Internal Medicine Ramez Akins, 96876 707.15 - Carson Goodman Office Visit 09/25/2014 4:00p [facility] Internal Medicine Ramez Akins, 21366 782.3 - Carson Goodman 250.00 401.1 272.0 300.09 V03.82 Office Visit 10/24/2013 2:00p [facility] Internal Medicine Ramez Akins, 54293 729.5 - Carson Goodman Office Visit 02/06/2013 3:40p [facility] Internal Medicine Ramez Akins, 30844 465.9 - Carson Goodman 250.00 Office Visit 06/30/2012 4:00p [facility] Internal Medicine Ramez Akins, 48913 707.19 - Carson Goodman 459.81 Office Visit 03/31/2012 1:00p [facility] Caitlynsantana Jones, N.P. 28278 250.00 - Snook v03.82 Office Visit 12/10/2011 3:30p [facility] - Caitlynsantana DeckerKaren, N.P. 8[address] 486 [place] 278.01 401.1 272.0 250.00 790.21 Office Visit 11/19/2011 4:00p [facility] - Caitlynsantana Jones, N.P. 87179 486 [place] 401.1 272.0 278.01 Office Visit 03/03/2011 3:40p DO Not Use [facility] AT [facility], 43033 790.21 [facility] V04.81 401.1 300.09 272.0 707.15 Office Visit 01/24/2010 11:40a DO Not Use [facility] AT [facility], 30331 401.1 [facility] 300.09 272.0 V04.81 v04.81 Office Visit 01/02/2009 1:30p DO Not Use [facility] AT [facility], 27327 707.15 [facility] 401.1 272.0 300.09 Office Visit 10/08/2008 2:00p [facility], 65111 787.91 [facility].D. 300.09 Office Visit 08/07/2008 3:00p [facility], 62399 789.00 [facility] M.D 787.91 401.1 Office Visit 04/24/2008 3:00p [facility], 09034 V72.83 [facility] M.D. 272.0 401.1 300.09 Office Visit 12/29/2007 2:30p [facility], 16937 272.0 [facility] M.D. 401.1 Office Visit 12/06/2007 10:45a [facility], 30926 272.0 [facility].D. 786.05 401.1 V72.83 Office Visit 11/07/2007 2:45p [facility], 81922 401.1 [facility] M.D. 300.09 Office Visit 08/18/2007 3:15p [facility], 73484 401.1 [facility] M.D. Office Visit 07/06/2007 3:30p [facility], 23033 401.1 [facility].D. Office Visit 01/05/2007 3:15p [facility], 22763 272.0 [facility].D 401.1 300.09 V04.81 Plan of Care 12/09/2017 - Ramez Akins M.D.E11.69 Type 2 diabetes mellitus with other specified complicationNew Labs:Urine Microalbumin AwlyicK55.271 Subacute osteomyelitis, right ankle and footI10 Essential (primary) hxvoxasxitwzB98.91 Unspecified atrial sfzrlwsrmpgiS57.2 Venous insufficiency (chronic) (peripheral) G47.33 Obstructive sleep apnea (adult) (pediatric)E78.00 Pure hypercholesterolemia, unspecifiedNew Labs:Lipid Profile (Trig/Chol/HDL)
--- NOTE | 2017-12-21 20:03 | ED ---
Lower Extremity - HPI Summary HPI Summary: This pt is a 67 y/o male presenting to [facility] via EMS c/o left ankle pain and deformation. Denies recent trauma or injury to left ankle. He reports that in April pt had a bone infection to his left heel. He was hospitalized and then discharged to rehab. Pt was released from rehab at the end of May. Pt was in wound care and a hard cast was placed on left foot for 2 months. 4 days ago the pt went to wound care and this hard cast was taken off. Pt was then placed in a foam booty. Today after taking the booty off pt noticed his left ankle was bent 45 degrees and was unable to bear weight. At baseline pt usually ambulates and is able to bear weight with a walker. PMHx includes diabetes type 2, CHF, afib, HTN. - History of Current Complaint Chief Complaint: EDExtremityLower Stated Complaint: LT ANKLE INJURY Time Seen by Provider: 12/21/17 19:36 Hx Obtained From: Patient Mechanism Of Injury: Unknown Onset of Pain: Days Onset/Duration: Still Present Severity Currently: Moderate Pain Intensity: 5 Pain Scale Used: 0-10 Numeric Timing: Constant, Lasting Days Location: Is Discrete @ - left ankle Associated Signs And Symptoms: Negative: Swelling, Redness, Bruising, Fever, Abdominal Pain, Knee Pain Aggravating Factor(s): Ambulation Alleviating Factor(s): Rest Able to Bear Weight: No - Allergies/Home Medications Allergies/Adverse Reactions: Allergies Allergy/AdvReac Type Severity Reaction Status Date / Time Penicillins AdvReac Intermediate GI Upset Verified 11/12/17 16:39 PMH/Surg Hx/FS Hx/Imm Hx Endocrine/Hematology History: Reports: Hx Blood Transfusions - 1975 had blood transfusion, Hx Diabetes - type 2 Denies: Hx Anticoagulant Therapy, Hx Blood Disorders, Hx Bone Marrow Disease , Hx Systemic Lupus Erythematosus, Hx Sickle Cell Disease, Hx Thyroid Disease, Hx Anemia, Hx Unexplained Bleeding, Other Endocrine/Hematological Disorders Cardiovascular History: Reports: Hx Atrial Fibrillation, Hx Congestive Heart Failure, Hx Hypertension, Other Cardiovascular Problems/Disorders - A- Fib Denies: Hx Aneurysm, Hx Angina, Hx Angioplasty, Hx Auto Implanted Cardiovert Defib, Hx Cardiac Arrest, Hx Cardiomegaly, Hx Coronary Artery Disease, Hx Deep Vein Thrombosis, Hx Embolism, Hx Hypercholesterolemia, Hx Pacemaker/ICD, Hx Syncope, Hx Valvular Heart Disease Respiratory History: Reports: Hx Chronic Bronchitis, Hx Sleep Apnea Denies: Hx Asthma, Hx Chronic Obstructive Pulmonary Disease (COPD), Hx Cystic Fibrosis, Hx Lung Cancer, Hx Pleural Effusion, Hx Pneumonia, Hx Seasonal Allergies GI History: Reports: Hx Hiatal Hernia - x3 had surgery Denies: Hx Gall Bladder Disease, Hx Gastroesophageal Reflux Disease, Hx Jaundice, Hx Obstructive Bowel, Hx Ileostomy, Hx Pyloric Stenosis, Hx Ulcer History: Reports: Hx Benign Prostatic Hyperplasia Denies: Hx Dialysis, Hx Kidney Infection, Hx Kidney Stones, Hx Renal Disease Musculoskeletal History: Reports: Hx Back Problems - low back pain occassionally , Hx Orthopedic Injury - broke right leg from knee down had surgery here 2010, Other Musculoskeletal History - 3 inguinal hernias Denies: Hx Arthritis, Hx Fibromyalgia, Hx Gout, Hx Osteoporosis, Hx Scoliosis , Hx Tendonitis Sensory History: Reports: Hx Contacts or Glasses - reading Denies: Hx Cataracts, Hx Glaucoma, Hx Hearing Aid Opthamlomology History: Reports: Hx Contacts or Glasses - reading Denies: Hx Cataracts, Hx Glaucoma Neurological History: Reports: Hx Nerve Disease - diabetic nueropathy Denies: Hx Dementia, Hx Developmental Delay, Hx Headaches, Hx Migraine, Hx Seizures, Hx Spinal Cord Injury, Hx Transient Ischemic Attacks (TIA), Other Neuro Impairments/Disorders Psychiatric History: Reports: Hx Anxiety, Hx Depression Denies: Hx Attention Deficit Hyperactivity Disorder, Hx Eating Disorder, Hx Panic Disorder, Hx Inpatient Treatment, Hx Schizophrenia, Hx Bipolar Disorder, Hx Suicide Attempt, Hx Substance Abuse - Cancer History Hx Chemotherapy: No - Surgical History Surgery Procedure, Year, and Place: Three inguinal hernia repairs. Tonsillectomy. Lt FOOT - 5TH TOE AMPUTATED 04/2017. Rt LEG - TIB/FIB FRACTURE - W/ PINS Hx Anesthesia Reactions: No Infectious Disease History: No Infectious Disease History: Denies: Hx Hepatitis, Hx Human Immunodeficiency Virus (HIV), Hx Tuberculosis , History Other Infectious Disease, Traveled Outside the [place] in Last 30 Days - Family History Known Family History: Positive: Cardiac Disease - Father of [place] at age 52, Diabetes - Social History Alcohol Use: Occasionally Alcohol Amount: Pt reports 1-2 bottles of wine. Substance Use Type: Reports: None Hx Tobacco Use: No Smoking Status (MU): Former Smoker Type: Cigarettes Have You Smoked in the Last Year: No Review of Systems Negative: Fever, Chills Negative: Chest Pain Negative: Shortness Of Breath Negative: Vomiting, Nausea Musculoskeletal: Other - left ankle pain Skin: Other - wounds All Other Systems Reviewed And Are Negative: Yes Physical Exam - Summary Physical Exam Summary: Appearance: The patient is well-nourished in no acute distress and in no acute pain. Skin: The skin is warm and dry and skin color reflects adequate perfusion. HEENT: The head is normocephalic and atraumatic. The pupils are equal and reactive. The conjunctivae are clear and without drainage. Nares are patent and without drainage. Mouth reveals moist mucous membranes and the throat is without erythema and exudate. The external ears are intact. The ear canals are patent and without drainage. The tympanic membranes are intact. Neck: the neck is supple with full range of motion and non-tender. There are no carotid bruits. There is no neck vein distension. Respiratory: Chest is non-tender. Lungs are clear to auscultation and breath sounds are symmetrical and equal. Cardiovascular: Heart with tachycardic rate and regular rhythm. There is no murmur or rub auscultated. There is no peripheral edema and pulses are symmetrical and equal. Abdomen: The abdomen is soft and non-tender. There are normal bowel sounds heard in all four quadrants and there is no organomegaly palpated. Musculoskeletal: There is no back tenderness noted. LLE: pt with varus deformity at the left ankle. There is good capillary refill. There is no peripheral edema or calf tenderness elicited. Neurological: Patient is alert and oriented to person, place and time. The patient has symmetrical motor strength in all four extremities. Cranial nerves are grossly intact. Deep tendon reflexes are symmetrical and equal in all four extremities. Psychiatric: The patient has an appropriate affect and does not exhibit any anxiety or depression. Triage Information Reviewed: Yes Vital Signs On Initial Exam: Initial Vitals Temp Pulse Resp BP Pulse Ox 98.0 F 119 24 111/57 95 12/21/17 19:30 12/21/17 19:30 12/21/17 19:30 12/21/17 19:30 12/21/17 19:30 Vital Signs Reviewed: Yes Diagnostics - Vital Signs Vital Signs Temp Pulse Resp BP Pulse Ox 12/21/17 19:30 98.0 F 119 24 111/57 95 - Laboratory Result Diagrams: 12/21/17 20:38 12/21/17 20:38 Lab Statement: Any lab studies that have been ordered have been reviewed, and results considered in the medical decision making process. - Radiology Left ankle Radiology Interpretation Completed By: ED Physician Left ankle XR Xray Interpretation: No Acute Changes Radiology Interpretation Completed By: ED Physician - No acute fracture seen. Pending official radiology report. Re-Evaluation - Re-Evaluation First Eval Re-Evaluation Time: 21:56 Comment: Reviewed plan for admission with pt and . They are aware of the plan. Lower Extremity Course/Dx - Diagnoses Provider Diagnoses: Diabetic foot ulcer - Physician Notifications Discussed Care Of Patient With: Hospitalist Time Discussed With Above Provider: 21:45 Instructed by Provider To: Admit As Inpatient Discharge - Sign-Out/Discharge Documenting (check all that apply): Patient Departure - Admit to [facility] [place] - Discharge Plan Condition: Stable Disposition: ADMITTED TO [facility] Referrals: Ramez Akins MD [Primary Care Provider] - - Attestation Statements Document Initiated by Scribe: Yes Documenting Scribe: Janine Martines Provider For Whom Scribe is Documenting (Include Credential): Ken Da Silva MD Scribe Attestation: Janine Paul, scribed for Ken Da Silva MD on 12/21/17 at 2200.
[2017-12-21 20:51] LABS: Hematocrit 28 % (42-52); Hemoglobin 9.5 g/dl (14.0-18.0); Mean Corpuscular HGB Conc 34 g/dl (31-36); Mean Corpuscular Hemoglobin 35 pg (27-31); Mean Corpuscular Volume 104 fL (80-94); Mean Platelet Volume 8.6 um3 (7.4-10.4); Platelet Count 179 10^3/ul (150-450); Red Cell Distribution Width 15 % (10.5-15); White Blood Count 16.6 10^3/ul (3.5-10.8)
[2017-12-21 21:01] LABS: INR 1.03 (0.77-1.02)
[2017-12-21] MEDS ORDERED: NS 0.9% 1000 ML* 1,000 ML IV ONE (21:07)
[2017-12-21 21:36] LABS: ABS Basophils 0.2 10^3/ul (0-0.2); ABS Neutrophils 12.9 10^3/ul (1.5-7.7); Monocytes % 11 % (0-7)
[2017-12-21 21:37] LABS: Urine Appearance Clear; Urine Blood 1+ (Negative); Urine Color Yellow; Urine Ketones Negative (Negative); Urine Protein Negative (Negative); Urine Red Blood Cell Absent (Absent); Urine Specific Gravity 1.016 (1.010-1.030); Urine Urobilinogen Negative (Negative); Urine White Blood Cell Trace(0-5/hpf) (Absent)
[2017-12-21] MEDS ORDERED: Vancomycin(*) 1,000 MG in NS 0.9% 250 ML* 250 ML IVPB ONE (21:47)
[2017-12-21] MEDS ORDERED: Cefepime 2 GM in Dextrose(*) 2 GM/50 ML BAG IV ONE (22:17)
[2017-12-21] MEDS ORDERED: Diltiazem IV* 5 MG/ML 5 ML VIAL (for loading dose/IV Push) (25 MG) IV SLOW PU ONE (22:19)
[2017-12-21] MEDS ORDERED: Ondansetron INJ* 2 MG/ML VIAL IV PRN (22:26)
[2017-12-21] MEDS ORDERED: Senna TAB PO PRN (22:26)
[2017-12-21] MEDS ORDERED: Docusate CAP* 100 MG PO PRN (22:26)
[2017-12-21] MEDS ORDERED: Al Hydrox/Mg Hydrox/Simet LIQ* 30 ML UDC PO PRN (22:26)
[2017-12-21] MEDS ORDERED: Acetaminophen TAB* 325 MG PO PRN (22:26)
[2017-12-21] MEDS ORDERED: oxyCODONE/Acetamin 5/325 MG* TAB PO PRN (22:26)
[2017-12-21] MEDS ORDERED: Vancomycin(*) 0 MG in NS 0.9% 250 ML* 250 ML IVPB SCH (23:00)
[2017-12-21] MEDS ORDERED: Vancomycin per Pharmacy* NOTE FOLLOW UP SCH (23:00)
[2017-12-22] MEDS ORDERED: Diltiazem DRIP* 100 MG/100 ML ADDV.BAG IVPB ONE (00:01)
[2017-12-22] MEDS: Pantoprazole IV* 80 MG in NS 0.9% 250 ML* 250 ML IV SCH ×4 (00:35→19:12)
[2017-12-22] MEDS: metroNIDAZOLE IV 500 MG/100ML* 500 MG/100 ML BAG IVPB SCH ×2 (00:44→12:54)
[2017-12-22] MEDS: Tamsulosin CAP* 0.4 MG PO SCH ×2 (00:44→21:17)
--- NOTE | 2017-12-22 00:49 | RAD ---
EXAM: US Duplex Bilateral Lower Extremity Veins CLINICAL HISTORY: 67 years old, male; Injury or trauma; Fall; Initial encounter; Swelling (edema); Patient HX: S/P fall with twisting injury to left ankle. Open wound left lower leg; Additional info: B/l edema TECHNIQUE: Real-time duplex ultrasound scan of the bilateral lower extremity veins integrating B-mode two-dimensional vascular structure, Doppler spectral analysis, color flow Doppler imaging and compression. COMPARISON: US - LE VEIN L VL LOWER EXT VEINS LEFT 09/24/2014 10:38 PM FINDINGS: Right deep veins: Unremarkable. No DVT in the right common femoral, femoral, proximal deep femoral or popliteal veins. The veins demonstrate normal color flow, are normally compressible, with normal phasic flow and/or augmentation response. Right superficial veins: Unremarkable. No thrombus in the visualized right great saphenous vein. Left deep veins: Unremarkable. No DVT in the left common femoral, femoral, proximal deep femoral or popliteal veins. The veins demonstrate normal color flow, are normally compressible, with normal phasic flow and/or augmentation response. Left superficial veins: Unremarkable. No thrombus in the visualized left great saphenous vein. Soft tissues: No acute findings. No popliteal cyst. IMPRESSION: Normal bilateral lower extremity duplex venous ultrasound.
[2017-12-22 01:28] LABS: Hematocrit 26 % (42-52); Hemoglobin 8.6 g/dl (14.0-18.0)
--- NOTE | 2017-12-22 01:38 | HP ---
CC: Dr. Ramez Akins * HISTORY AND PHYSICAL: DATE OF ADMISSION: 12/21/17 TIME OF EVALUATION: 0 PRIMARY CARE PROVIDER: Ramez Akins MD CHIEF COMPLAINT: Left ankle pain. HISTORY OF PRESENT ILLNESS: This is a 67-year-old male with a past medical history of morbid obesity and osteomyelitis with chronic wounds. He was followed at the wound care clinic, who presented to the emergency room for left ankle pain, unable to bear weight and deformity. The patient has had chronic issues with chronic wounds, history of osteomyelitis, getting hyperbaric treatment with a recent prolonged IV antibiotic course, who had a hard cast on his left lower extremity. His was concerned about an ulcer on his left calf. When they went to wound care, they removed the cast yesterday on and put on a soft boot. The patient states he was been a little wobbly since the hard cast has been removed with difficulty ambulating. He cannot bear weight due to pain. He noticed that his left ankle is more inverted that it normally is. He did fall on 12/17/17. He denied any injuries. He states he was overconfident using his walker which he normally uses. Also of note, he just finished a 10-week course of IV antibiotics 3 weeks ago for his right fourth toe that he was having issues with. He has had a left pressure ulcer since April where he has been getting hyperbaric treatment. They state it has been healing. He currently is denying any pain or fevers at home. He is dyspneic on exertion. He has had a decrease in appetite with no changes in his weight. He has had black stools with diarrhea over the past 1 to 2 days. Of note, he had a colonoscopy a year ago where he had polyps that were benign, removed. No cough. No chest pain. No abdominal pain. No urinary symptoms. He does have some congestion. He states he had his hemoglobin A1c checked last week and it was 5.1. Otherwise, remaining review of systems is negative. In the emergency room, the patient had labs and imaging. He was given 1 L of normal saline and vancomycin and referred to the the hospitalist service for further evaluation. PAST MEDICAL HISTORY: 1. Hypertension. 2. Morbid obesity. 3. Anxiety. 4. BPH. 5. Atrial fibrillation on anticoagulation. 6. History of right bundle-branch block. 7. History of osteomyelitis with left fifth toe osteomyelitis, gangrene, and amputation, also with a left heel ulcer since April 2017, also with a right fourth toe wound and now with a left posterior calf wound, followed at the wound care clinic by Dr. Rojas. PAST SURGICAL HISTORY: 1. Abdominal aortic aneurysm repair. 2. Tonsillectomy. 3. Inguinal hernia repair, bilateral. 4. Ankle surgery. 5. Fifth toe left foot amputation. MEDICATIONS: 1. Amlodipine 5 mg p.o. daily. 2. Losartan/hydrochlorothiazide 100/25 one tab daily. 3. Xarelto 20 mg daily. 4. Atorvastatin 20 mg daily. 5. Metoprolol succinate 100 mg p.o. daily. 6. Valium 5 mg t.i.d. as needed. 7. Citalopram 20 mg p.o. daily. 8. Multivitamin. 9. Tamsulosin 0.4 mg half a tab after dinner. 10. Aleve 220 as needed for pain approximately twice a week. ALLERGIES: PENICILLIN, GI upset. FAMILY HISTORY: Mother at the age of 59 from colon cancer. Father at the age of 52 from an [place]. SOCIAL HISTORY: The patient lives at home with his , Taylor, who is his healthcare proxy and ambulates with a walker. He is a remote smoker 40 years ago. He drinks about 3 glasses of wine per day. CODE STATUS: Full code. PHYSICAL EXAMINATION GENERAL: No acute distress. Moderately ill-appearing with his at the bedside. The patient is diaphoretic. VITAL SIGNS: Temp 98, pulse rate 130, respiratory rate 25, oxygen saturation 95 % on room air, blood pressure 96/61. HEENT: Head: Normocephalic. Pupils are equal and reactive. Oropharynx: Mucous membranes are moist. NECK: Supple. No lymphadenopathy. RESPIRATORY: Diminished breath sounds. No wheezing, rhonchi, or rales. CARDIAC: Irregularly irregular rate and rhythm. Soft systolic murmur most pronounced at the left sternal border. ABDOMEN: Morbidly obese. Soft, nontender, and nondistended. EXTREMITIES: The patient was Tra wrapped on bilateral lower extremities. On his left lower extremity, he has a 3 to 4 cm circular ulcerated wound with some what appears to be purulent drainage. Limited exam due to the patient's obesity and limited mobility. He also has a linear open ulcer on his posterior calf measuring about 4 to 5 cm. Right lower extremity, unable to appreciate any open ulcers or any wounds on his fourth toe. He has chromic hemosiderin changes, onychomycosis on his nails with dry scaly skin. Unable to appreciate any pulses DP. NEUROLOGIC: Alert and oriented x3. No gross focal neurologic deficits. LABORATORY DATA: White count 16.6, hemoglobin 9.5, hematocrit 28, platelets 179, 2% bands. INR was 1.03. Sodium 135, potassium 4, chloride 103, bicarb 26 , BUN 46, creatinine 0.87, glucose 107, magnesium 1.9. Urine shows +1 blood. RADIOGRAPHIC DATA: Wet read ankle x-ray unremarkable. ASSESSMENT: This is a 67-year-old male with a past medical history of atrial fibrillation on anticoagulation, osteomyelitis with poor wound healing, who presents to the emergency room with left foot pain. 1. Left foot pain. Assessment: Concern for his heel ulcer and his posterior calf ulcer driving his sepsis. His right foot appears unremarkable at this time. He did have ABIs done back in April that were negative. He could have an underlying DVT as well. Plan: We will continue him on vancomycin, add cefepime, and Flagyl. We will get wound cultures from both sites. We will get a Doppler of his lower extremities for now, but would consider ABIs as well as he states his hemoglobin A1c last week was 5.1 and consult Infectious Disease for further antibiotic management and imaging. 2. Rapid atrial fibrillation. Assessment: The patient with a history of atrial fibrillation on Xarelto, appears to be in rapid atrial fibrillation at this time, likely driven by his sepsis. He does have dyspnea on exertion. No chest pain. Plan: We will obtain an EKG, chest x-ray, check a troponin. We will give him more fluids and give him a diltiazem bolus and likely start him on a drip. His last echo was done back in April, it was unremarkable at that time. We will check another echo in the morning, continue to trend his troponin. We would hold his Xarelto and any further anticoagulation in the setting of his anemia and concern for gastrointestinal bleed. We will check a TSH as well and a lipid panel. 3. Anemia. Assessment: The patient's history is consistent with gastrointestinal bleed with black stools on Xarelto. He had quite a significant drop in his H and H from October. We will repeat H and H this evening and in the morning. We will check a Hemoccult. We will hold his anticoagulation. Check iron studies and B12 and consider transfusion if he becomes more symptomatic. Consider GI evaluation as well. CHRONIC MEDICAL PROBLEMS: 1. Hypertension. The patient's blood pressures are soft, going to trend rate control with Cardizem. We will hold his amlodipine, valsartan and hydrochlorothiazide. We will continue him on metoprolol in the morning if he can tolerate it. 2. Atrial fibrillation as above. Holding his Xarelto as above but he may continue his atorvastatin. 3. Anxiety. Continue his Valium and citalopram. 4. BPH. Continue his tamsulosin. 5. FEN. We will place him on a heart healthy diet. 6. DVT prophylaxis. The patient scores high risk. We will place him on SCDs. 7. Code status. Full code. PATIENT TIME: Greater than 60 minutes was spent doing history and physical, more than half the time was spent in direct patient contact and critical care time. [id number]/CPS #: [id number] JASMEET
[2017-12-22] MEDS: Metoprolol Succinate XL TAB* 100 MG PO SCH ×2 (01:39→08:28)
[2017-12-22] MEDS: Diazepam TAB(*) 5 MG PO PRN ×2 (01:39→21:17)
[2017-12-22] MEDS ORDERED: Diltiazem IV VIAL* 125 MG in NS 0.9% 100 ML* 100 ML IVPB SCH (03:00)
[2017-12-22 05:54] LABS: EGFR Non-African American 83.7 (>60)
[2017-12-22 06:02] LABS: Hematocrit 26 % (42-52); Hemoglobin 8.7 g/dl (14.0-18.0); Mean Corpuscular HGB Conc 34 g/dl (31-36); Mean Corpuscular Hemoglobin 36 pg (27-31); Mean Corpuscular Volume 106 fL (80-94); Mean Platelet Volume 9.3 um3 (7.4-10.4); Platelet Count 194 10^3/ul (150-450); Red Blood Count 2.42 10^6/ul (4.00-5.40); Red Cell Distribution Width 15 % (10.5-15); White Blood Count 11.7 10^3/ul (3.5-10.8)
[2017-12-22] MEDS: Vancomycin(*) 1,250 MG in NS 0.9% 250 ML* 250 ML IVPB SCH ×3 (06:16→22:10)
[2017-12-22 06:22] LABS: ABS Basophils 0.1 10^3/ul (0-0.2); ABS Eosinophils 0.5 10^3/ul (0-0.6); ABS Lymphocytes 1.4 10^3/ul (1.0-4.8); ABS Monocytes 1.4 10^3/ul (0-0.8); ABS Neutrophils 8.3 10^3/ul (1.5-7.7); ABS Nucleated RBC 0 10^3/ul; Eosinophil % 4.4 % (0-6); Lymphocyte % 12.1 % (25-47); Nucleated Red Blood Cells % 0.1
--- NOTE | 2017-12-22 07:45 | RAD ---
HISTORY: pain diabetic with left foot, fall, injury COMPARISONS: None VIEWS: 3 , Frontal, lateral, and oblique views of the left ankle FINDINGS: BONE DENSITY: Normal. BONES: There is a well-corticated bone fragment off the lateral malleolus consistent with remote injury. There is no acute displaced fracture. JOINTS: There is no arthropathy. ALIGNMENT: The ankle is held in inversion. SOFT TISSUES: Unremarkable. OTHER FINDINGS: None. IMPRESSION: EVIDENCE OF REMOTE AVULSION INJURY OF THE LATERAL MALLEOLUS. NO ACUTE OSSEOUS INJURY. IF SYMPTOMS PERSIST, RECOMMEND REPEAT IMAGING R1
--- NOTE | 2017-12-22 07:50 | RAD ---
HISTORY: afib COMPARISONS: October 01, 2017 VIEWS: 3 : frontal portable view of the chest at 10:35 PM FINDINGS: LINES AND TUBES: None. CARDIOMEDIASTINAL SILHOUETTE: The cardiomediastinal silhouette is normal for portable technique. PLEURA: The costophrenic angles are sharp. No pleural abnormalities are noted. LUNG PARENCHYMA: The lungs are clear. ABDOMEN: The upper abdomen is clear. There is no subphrenic gas. BONES AND SOFT TISSUES: No bone or soft tissue abnormalities are noted. IMPRESSION: NO ACTIVE CARDIOPULMONARY DISEASE. R1
[2017-12-22] MEDS ORDERED: Perflutren Lipid Microsphere* 3 ML VIAL ONE (08:03)
[2017-12-22] MEDS: Citalopram TAB* 20 MG PO SCH (08:28)
[2017-12-22] MEDS ORDERED: Metoprolol Succinate XL TAB* 100 MG PO SCH (09:00)
[2017-12-22 10:37] LABS: Hematocrit 24 % (42-52); Hemoglobin 7.8 g/dl (14.0-18.0)
--- NOTE | 2017-12-22 10:37 | PN ---
Subjective Date of Service: 12/22/17 Interval History: Patient seen this morning. Complains of weakness. No acute abdominal pain. He does give history at home for dark tarry stool. No bowel movement this morning. He does look pale, and diaphoretic. BP was SBP 80's. He remains on Protonix drip and remains off his Xaretlo. Denies vomiting blood at any time. Afebrile. Family History: Unchanged from Admission Social History: Unchanged from Admission Past Medical History: Unchanged from Admission Objective Active Medications: Acetaminophen (Tylenol Tab*) 650 mg PO Q4H PRN PRN Reason: FEVER/PAIN Al Hydrox/Mg Hydrox/Simethicone (Maalox Plus*) 30 ml PO Q6H PRN PRN Reason: INDIGESTION Atorvastatin Calcium (Lipitor*) 20 mg PO 2100 [facility] Citalopram Hydrobromide (Celexa Tab*) 20 mg PO DAILY [facility] Last Admin: 12/22/17 08:28 Dose: 20 mg Diazepam (Valium Tab(*)) 5 mg PO Q8H PRN PRN Reason: ANXIETY Last Admin: 12/22/17 01:39 Dose: 5 mg Docusate Sodium (Colace Cap*) 100 mg PO BID PRN PRN Reason: CONSTIPATION Cefepime HCl (Maxipime 2 Gm In Dextrose Duplex (*)) 2 gm in 50 mls @ 100 mls/ hr IV Q12H [facility] Metronidazole/Sodium Chloride (Flagyl 500 Mg Ivpb*) 500 mg in 100 mls @ 100 mls /hr IVPB Q12H [facility] Last Admin: 12/22/17 00:44 Dose: 100 mls/hr Lactated Ringer's (Lactated Ringers 1000 Ml Bag*) 1,000 mls @ 125 mls/hr IV PER RATE [facility] Last Admin: 12/22/17 08:40 Dose: 125 mls/hr Pantoprazole Sodium 80 mg/ (Sodium Chloride) 250 mls @ 25 mls/hr IV Q10H [facility] Last Admin: 12/22/17 08:29 Dose: Not Given Vancomycin HCl 1,250 mg/ (Sodium Chloride) 250 mls @ 166.667 mls/hr IVPB Q8H [facility] Last Admin: 12/22/17 06:16 Dose: 166.667 mls/hr Metoprolol Succinate (Toprol Xl Tab*) 100 mg PO DAILY [facility] Last Admin: 12/22/17 08:28 Dose: 100 mg Ondansetron HCl (Zofran Inj*) 4 mg IV Q4H PRN PRN Reason: NAUSEA/VOMITING Oxycodone/Acetaminophen (Percocet 5/325 Tab*) 1 tab PO Q4H PRN PRN Reason: Pain Pharmacy Consult (Vancomycin Per Pharmacy*) 1 note FOLLOW UP .VANC PER PHARMACY [facility] Pharmacy Profile Note (Vancomycin Trough Check) 1 note FOLLOW UP 529 ONE Stop: 12/23/17 05:31 Senna (Senokot Tab*) 1 tab PO BID PRN PRN Reason: CONSTIPATION Tamsulosin HCl (Flomax Cap*) 0.4 mg PO BEDTIME [facility] Last Admin: 12/22/17 00:44 Dose: 0.4 mg Vital Signs - 8 hr 12/22/17 12/22/17 12/22/17 02:45 03:00 03:15 Temperature Pulse Rate 97 95 101 Respiratory 17 26 16 Rate Blood Pressure 129/62 127/77 116/79 (mmHg) O2 Sat by Pulse 97 95 91 Oximetry 12/22/17 12/22/17 12/22/17 03:31 03:46 04:00 Temperature 98.5 F Pulse Rate 94 100 93 Respiratory 18 21 23 Rate Blood Pressure 99/65 128/86 (mmHg) O2 Sat by Pulse 100 99 94 Oximetry 12/22/17 12/22/17 12/22/17 04:01 04:16 04:30 Temperature Pulse Rate 90 82 91 Respiratory 24 21 21 Rate Blood Pressure 127/59 108/76 107/68 (mmHg) O2 Sat by Pulse 92 94 100 Oximetry 12/22/17 12/22/17 12/22/17 04:46 05:00 05:09 Temperature Pulse Rate 92 90 94 Respiratory 21 23 19 Rate Blood Pressure 102/64 108/57 (mmHg) O2 Sat by Pulse 100 96 100 Oximetry 12/22/17 12/22/17 12/22/17 05:15 05:31 05:45 Temperature Pulse Rate 81 83 80 Respiratory 25 14 19 Rate Blood Pressure 123/56 91/72 99/78 (mmHg) O2 Sat by Pulse 91 98 100 Oximetry 12/22/17 12/22/17 12/22/17 06:00 06:15 06:30 Temperature Pulse Rate 85 90 93 Respiratory 16 25 20 Rate Blood Pressure 103/56 123/67 113/78 (mmHg) O2 Sat by Pulse 89 100 100 Oximetry 12/22/17 12/22/17 12/22/17 06:45 07:00 07:15 Temperature Pulse Rate 88 89 89 Respiratory 22 19 18 Rate Blood Pressure 109/61 109/70 118/86 (mmHg) O2 Sat by Pulse 96 99 98 Oximetry 12/22/17 12/22/17 12/22/17 07:31 07:45 07:55 Temperature 97.2 F Pulse Rate 92 91 Respiratory 30 22 Rate Blood Pressure 108/73 128/69 (mmHg) O2 Sat by Pulse 100 99 Oximetry 12/22/17 12/22/17 12/22/17 08:00 08:01 08:16 Temperature Pulse Rate 94 89 87 Respiratory 26 21 27 Rate Blood Pressure 116/74 125/65 (mmHg) O2 Sat by Pulse 100 100 94 Oximetry 12/22/17 12/22/17 12/22/17 08:31 08:33 08:45 Temperature Pulse Rate 84 83 87 Respiratory 21 25 21 Rate Blood Pressure 80/72 91/54 116/67 (mmHg) O2 Sat by Pulse 98 100 100 Oximetry 12/22/17 12/22/17 12/22/17 09:00 09:01 09:16 Temperature Pulse Rate Respiratory 25 26 26 Rate Blood Pressure 105/72 103/58 (mmHg) O2 Sat by Pulse Oximetry 12/22/17 12/22/17 12/22/17 09:31 09:45 09:46 Temperature Pulse Rate Respiratory 25 23 20 Rate Blood Pressure 87/49 76/59 90/46 (mmHg) O2 Sat by Pulse Oximetry 12/22/17 12/22/17 10:00 10:17 Temperature Pulse Rate Respiratory 22 21 Rate Blood Pressure 81/49 74/42 (mmHg) O2 Sat by Pulse Oximetry Oxygen Devices in Use Now: Nasal Cannula Appearance: Pale, moist skin. dry oral mucosa. oriented and coherent. Eyes: No Scleral Icterus, - - EOMI. Pale conjunctiva Ears/Nose/Mouth/Throat: - - dry oral mucosa Neck: Trachea Midline Respiratory: Symmetrical Chest Expansion and Respiratory Effort, - - diminished and limited ausculatation at base. Anteiorly reveals good air flow Cardiovascular: - - irregularly irregular. rate controlled. Systollic murmur Abdominal: NL Sounds; No Tenderness; No Distention Extremities: - - left ankle two ulcer over his heels, lateral large stage2-3 chronic. good granulations tissue Neurological: Alert and Oriented x 3 Result Diagrams: 12/22/17 05:07 12/22/17 05:07 Microbiology and Other Data: Microbiology 12/22/17 01:00 Gram Stain - Final Leg Left 12/22/17 01:00 Gram Stain - Final Foot Left 12/22/17 00:40 Nasal Screen MRSA (PCR) - Final Nasal Mrsa Not Detected Assess/Plan/Problems-Billing Assessment: 67 y/o male admitted for left ankle pain, weakness found to be in rapid afib started no cardizem drip, and anemic (Hct 40's one month ago) down to 26 at presentations. His Xaretlo on hold started on protonix drip. Held his BP med ( amlodipine, valsartan and HCTZ) - Patient Problems (1) Anemia Current Visit: Yes Status: Acute Priority: High Code(s): D64.9 - ANEMIA, UNSPECIFIED SNOMED Code(s): 145342349 Comment: - Given his hypotension and drop of H/H to 26 (on presentations) from 40 in (11/08); accompanied with dark tarry stool past few weeks and the fact he is on Xarelto does raise the suspision for UGB. - Will keep Xarelto on hold (held since admission). - Order stat H/H now (as he is pale and mild diaphoretic). Will transfuse if below 26. - Continue Protonix drip - Call GI for consult. Order Stool OB for diagnostic purporse (2) Hypotension Current Visit: Yes Status: Acute Priority: High Comment: - Multifactorial. Suspect due to Anemia and GI bleed, also related to SIRS from his heel ulcer. - Held his Amlodipine, Valsartan and HCTZ. - Cotninue LR at 125 ml - Discontinue his cardizem drip and will keep him only on metoprolol XL to avoid bouncing back on rapid afib - The plan to transfuse as soon as we get his stat H/H (3) Atrial fibrillation Current Visit: Yes Status: Chronic Code(s): I48.91 - UNSPECIFIED ATRIAL FIBRILLATION SNOMED Code(s): 80406738 Comment: - Admitted for afib with RVR secondary to his anemia and hypotensions - HR controlled this morning. will D/c his cardizem drip and keep him on metoprolol for now - keep xarelto on hold due to his anemia - re-evaluate in am (4) Ulcer of left heel Current Visit: Yes Status: Acute Code(s): L97.429 - NON-PRS CHRONIC ULCER OF LEFT HEEL AND MIDFOOT W UNSP SEVERT SNOMED Code(s): 518412094 Comment: - His ulcer appears to be healing properly. clean edge with no discharge - Nonetheless, I would greatly appreciate input from ID and wound consult both were requested and will follow up their recommendations - Patient on Vanco/Cefepime/Flagyl on admssions. Will maintain and pending above consult input. (5) Type 2 diabetes mellitus Current Visit: No Status: Chronic Priority: Medium Comment: - Diagnosis present in his history, but I do not see chronic medications - I will place him on SS (6) DVT prophylaxis Current Visit: No Status: Acute Priority: Low Code(s): NPA8873 - SNOMED Code(s): 984185698 Comment: - Off Xaretlo. Keep him off anticoagulation for today. pending clinical progress and input will consider low dose lovenox in am if he H/H improves and pending GI input.
[2017-12-22] MEDS ORDERED: Dextrose 50% Syringe 50 ML* 25 GM/50 ML SYRINGE IV PUSH PRN (10:49)
[2017-12-22] MEDS: Cefepime 2 GM in Dextrose(*) 2 GM/50 ML BAG IV SCH ×2 (11:06→21:21)
--- NOTE | 2017-12-22 11:58 | ECHO ---
Patient: JARETT COOPER [facility] Rec#: [id number] : 1950 Date: 12/22/2017 Age: 67y Height: 190.5 cm / 75.0 in Weight: 181 kg / 398.9 lbs Sex: M BSA: 2.94 Room#: ICU-1 Admit Date#: 12/21/2017 Type: Inpatient Referring: Debi Whitley Reading: Becky Billingsley MD Timber Deadener: Eveline Phelps SHA CC: Ramez Akins MD CC: Bryn Barnhart MD CC: Steffen Garcia DO Transthoracic Echocardiogram Indication: Abn EKG BP: 160/61 HR: 92 Rhythm: NSR Findings History: Morbid obesity,osteomyelitis with sepsis, a-fib,anxiety,HTN,remote smoking hx, soft systolic murmur. Definity used to enhance iamges. Completed at 0857. Technical Comments: The study is technically difficult. Definity used to enhance iamges. The study is technically limited due to patient body habitus. The study is technically limited due to the patient's smoking history. Left Ventricle: The left ventricular chamber size is normal. Global left ventricular wall motion and contractility are within normal limits. The estimated ejection fraction is 60-65%. The assessment of diastolic function is non-diagnostic.due to atrial fibrillation. The left ventricular diastolic filling pattern is consistent with elevated left ventricular end-diastolic pressure. Left Atrium: The left atrium is moderate to severely dilated. Right Ventricle: The right ventricular cavity size is normal. The right ventricular global systolic function is mildly to moderately reduced.the base moves best. On subcostal view RV free wall appears hypertrophied. Right Atrium: The right atrium is moderate to severely dilated. Aortic Valve: The aortic valve structure is not well visualized. The aortic valve is trileaflet. The aortic valve leaflets are mildly thickened. There is mild aortic regurgitation. There is no evidence of aortic stenosis. Mitral Valve: The mitral valve leaflets are mildly thickened. There is trace to mild mitral regurgitation. There is no evidence of mitral stenosis. Tricuspid Valve: The tricuspid valve leaflets are normal. There is mild to moderate tricuspid regurgitation.appears moderate on subcostal views. The right ventricular systolic pressure is estimated at 30 mmHg. There is evidence that pulmonary hypertension may be underestimated. There is no tricuspid stenosis. Pulmonic Valve: The pulmonic valve structure is not well visualized. Pericardium: A pericardial fat pad is visualized. Aorta: There is no dilatation of the ascending aorta. The aortic arch is not well visualized. The aortic root is not well visualized. Pulmonary Artery: The main pulmonary artery is not well visualized. Venous: The venous system is not well visualized. Contrast: Definity was used to optimize study. A total of 4 ml. used. Intravenous contrast was used to enhance endocardial border definition. Conclusions Difficult technically limited study. The left ventricular chamber size is normal. Global left ventricular wall motion and contractility are within normal limits. The estimated ejection fraction is 60-65%. The left ventricular diastolic filling pattern is consistent with elevated left ventricular end-diastolic pressure. The right ventricular global systolic function is mildly to moderately reduced, the base moves best. On subcostal view RV free wall appears hypertrophied. The right atrium is moderate to severely dilated. The aortic valve leaflets are mildly thickened, sclerosed. There is mild aortic regurgitation. There is trace to mild mitral regurgitation. There is mild to moderate tricuspid regurgitation. The right ventricular systolic pressure is estimated at 30 mmHg, may be underestimated. Compared with prior study of 05/02/17, ventricular function is stable, RV hypokinesis newly noted, AI is new, MR has increased from trace, TR has increased from trace. Measurements Name Value Normal Range RVDdMajor (2D) 4.4 cm (2.2 - 4.4) RAd ISD 4CH 8 cm (3.4 - 4.9) RA (A4C)W 6 cm (2.9 - 4.6) Ascending Ao 3.5 cm (2.1 - 3.4) LAd ISD 4CH 7.2 cm (2.9 - 5.3) LA ISD 4CH W 4.5 cm (2.5 - 4.5) Name Value Normal Range LA ESV SP 4CH (A/L) 46 ml - LA ESV SP 2CH (A/L) 43 ml - LA ESV BP (A/L) index 48 ml/m2 - Name Value Normal Range MV E-wave Vmax 1.6 m/sec - MV deceleration time 207 msec - LV septal e' Vmax 0.1 m/sec - LV lateral e' Vmax 0.11 m/sec - LV E:e' septal ratio 16 ratio - LV E:e' lateral ratio 14.5 ratio - Name Value Normal Range AV Vmax 1 m/sec - AV VTI 29.9 cm - AV peak gradient 13 mmHg - AV mean gradient 5 mmHg - LVOT Vmax 0.8 m/sec - LVOT VTI 23.2 cm - LVOT peak gradient 6 mmHg - LVOT mean gradient 3 mmHg - Name Value Normal Range MR Vmax 4.3 m/sec - MR VTI 106 cm - Name Value Normal Range TR Vmax 2.3 m/sec - TR peak gradient 22 mmHg - RAP 8 mmHg - RVSP 30 mmHg -
[2017-12-22] MEDS ORDERED: Diltiazem IV VIAL* 125 MG in NS 0.9% 100 ML* 100 ML IVPB ONE (12:30)
[2017-12-22] MEDS: Insulin LISPRO* 1 UNITS UNIT SUBCUT SCH ×3 (12:54→21:22)
[2017-12-22] MEDS ORDERED: Buffered Lidocaine 0.9% SYRIN* 5 ML/SYR SYRINGE INTRADERM ONE (15:41)
[2017-12-22 17:50] LABS: ABS Basophils 0.1 10^3/ul (0-0.2); ABS Eosinophils 0.4 10^3/ul (0-0.6); ABS Lymphocytes 0.9 10^3/ul (1.0-4.8); ABS Neutrophils 7.6 10^3/ul (1.5-7.7); ABS Nucleated RBC 0 10^3/ul; Eosinophil % 4.4 % (0-6); Hematocrit 30 % (42-52); Hemoglobin 9.8 g/dl (14.0-18.0); Lymphocyte % 8.6 % (25-47); Mean Corpuscular HGB Conc 33 g/dl (31-36); Mean Corpuscular Hemoglobin 35 pg (27-31); Mean Corpuscular Volume 104 fL (80-94); Mean Platelet Volume 8.7 um3 (7.4-10.4); Nucleated Red Blood Cells % 0.4; Platelet Count 154 10^3/ul (150-450); Red Blood Count 2.85 10^6/ul (4.00-5.40); Red Cell Distribution Width 17 % (10.5-15)
[2017-12-22] MEDS ORDERED: Furosemide IV* 10 MG/ML 2 ML VIAL (20 MG) IV ONE (19:02)
[2017-12-22] MEDS ORDERED: Multivitamins/Minerals TAB PO SCH (21:00)
--- NOTE | 2017-12-22 21:13 | CONS ---
GASTROENTEROLOGY CONSULT NOTE: DATE OF CONSULT: 12/22/17 REASON FOR CONSULT: Anemia, melena. HISTORY OF PRESENT ILLNESS: Mr. Luevano is a 67-year-old gentleman with a history of morbid obesity, osteomyelitis, atrial fibrillation on Xarelto, and multiple colon polyps, who initially presented to [facility] with a complaint of pain in his ankle related to chronic wounds. On arrival to ER, he was also noted to have hematocrit drop to 28 from a baseline of 40 in late October. On interview, Mr. Luevano does endorse 3 to 4 weeks of dark brown/black stools. He reports 3 to 4 of such bowel movements per day ranging from soft to formed. The frequency of bowel movements is unchanged from his baseline, although the dark color is new. He denies seeing any red blood in his stool. He is on Xarelto daily for his atrial fibrillation. He also reports taking Aleve up to four times per week for headache or musculoskeletal pain. It seems as if the frequency of his Aleve use has increased over the past month or so. He is not on any PPI or antacid therapy nor has he had a prior GI bleed. He denies any acid reflux, dysphagia, nausea, vomiting, abdominal pain, or change in bowel habits other than the color. He has a history of colon cancer in his mother, who was at 59 from this malignancy. He last had a colonoscopy in January [address] Jules, demonstrating 5 polyps with a recommendation for repeat in 3 years. On review of the chart, Mr. Luevano was noted to be intermittently hypotensive earlier in his hospital course with a systolic blood pressure dipping to the 70s and 80s and heart rate in the 110s to 120s. He was noted to be in AFib and was placed on a Cardizem drip, which has since been discontinued. His hemodynamics have improved throughout today with a blood pressure at time of consultation consistently over systolic of 100 and heart rate under better control. Noted to have a new oxygen requirement of 3 liters NC. He has been started on IV PPI and received several liters of fluid. Since arrival, repeat Hct trend has gone from 28 to 26 x 2 and most recently 24. REVIEW OF SYSTEMS: Mr. Luevano does endorse increased dyspnea with exertion over the last month or so. He denies any chest pain or cough. Reports headaches , chronic wounds, and ankle/lower extremity pain. Otherwise negative 14 point review of systems except as described above. PAST MEDICAL HISTORY: 1. Hypertension. 2. Morbid obesity. 3. Anxiety. 4. BPH. 5. AFib, on Xarelto. 6. History of osteomyelitis with details as listed in H and P. 7. History of colon polyps, most recently had 5 removed in 2017. PAST SURGICAL HISTORY: 1. Abdominal aortic aneurysm repair. 2. Tonsillectomy. 3. Inguinal hernia repair, bilateral. 4. Ankle surgery. 5. Fifth toe left foot amputation. MEDICATIONS: Refer to medical chart for dosing. 1. Amlodipine. 2. Losartan/hydrochlorothiazide. 3. Xarelto. 4. Atorvastatin. 5. Metoprolol. 6. Valium. 7. Citalopram. 8. Multivitamin. 9. Tamsulosin. 10. Aleve. ALLERGIES: PENICILLIN causes GI upset. FAMILY HISTORY: Mother at age 59 from colon cancer. Father at 52 from [place]. SOCIAL HISTORY: The patient lives with his , Taylor. Former smoker. PHYSICAL EXAM: Vital Signs: Reviewed. Most recent vital signs at time of this note: heart rate 82, blood pressure 108/67, respiratory rate 25, O2 sat 95% on 3 L. General: Pleasant, morbidly obese gentleman, appears comfortable, and in no acute distress. HEENT: Normocephalic, atraumatic head. Anicteric sclerae. Slightly dry mucous membranes. Neck: Supple. Pulmonary: Slight increased work of breathing with conversation. Diminished breath sounds in the bases. No wheezing or crackles heard. Cardiac: Irregularly irregular rate and rhythm. Not tachycardic. Abdomen: Morbidly obese, soft, nontender, and nondistended. Rectal: Visual examination limited due to body habitus Loose black stool consistent with melena noted on [place]. No red blood noted. Neurologic: A and O x3. DIAGNOSTIC STUDIES/LAB DATA: Labs were reviewed, notable for leukocytosis on admission to 16.6 down to 11.7 on repeat, hematocrit noted to be 28 on admission down to 26 x2 and 24 most recently. This is in comparison to hematocrit of 40 on 11/08/17. Note is made of a normal INR of 1.03 and normal low T sat of 16%. Studies: Prior colonoscopy report from 2017 reviewed and notable for multiple polyps. ASSESSMENT AND RECOMMENDATIONS: This is a 67-year-old gentleman with a history of atrial fibrillation, on anticoagulation, morbid obesity, and issues with chronic wounds/osteomyelitis, who presents with lower extremity pain as well as acute hematocrit drop and melena concerning for GI bleed. # Anemia/Melena: Appears to be a subacute to acute presentation of upper GI bleed based on description of dark stools over past few weeks in setting of chronic Xarelto use and regular Aleve use (up to 4 times/week). Hct last normal in late October, now down to 24 (with possible component of dilutional effect). Favor peptic ulcer disease or esophagitis as etiology of bleeding. Patient is hemodynamically stable at present, although he was noted to have A fib with RVR and associated hypotension earlier in hospital course which has since resolved. Noted to have new supplemental oxygen requirement compared to baseline. Receiving blood transfusion. - Discussed case with patient's primary hospital provider. Would like to pursue endoscopic evaluation after he has been optimized from a cardiopulmonary standpoint. Will tentatively plan for EGD with anesthesia tomorrow -- my GI colleague, Dr Peters will see patient in AM to reassess. - Maintain 2 large bore PIVs - Trend CBC every 8-12 hours - Continue PPI gtt or IV PPI BID - Agree with continuing to hold Xarelto. Avoid NSAIDs. - NPO after MN Thank you for this GI consult. Please call GI if any acute clinical change. Jaycee Miller MD Gastroenterology [id number]/CPS #: [id number] MTDD
[2017-12-22] MEDS: Atorvastatin* 20 MG TAB PO SCH (21:17)
[2017-12-23] MEDS: metroNIDAZOLE IV 500 MG/100ML* 500 MG/100 ML BAG IVPB SCH ×2 (00:02→12:29)
[2017-12-23] MEDS: Pantoprazole IV* 80 MG in NS 0.9% 250 ML* 250 ML IV SCH ×3 (00:29→22:10)
[2017-12-23] MEDS ORDERED: Vancomycin Trough Check NOTE FOLLOW UP ONE (05:30)
[2017-12-23 06:10] LABS: ABS Basophils 0 10^3/ul (0-0.2); ABS Eosinophils 0.4 10^3/ul (0-0.6); ABS Lymphocytes 0.7 10^3/ul (1.0-4.8); ABS Monocytes 0.7 10^3/ul (0-0.8); ABS Neutrophils 5.5 10^3/ul (1.5-7.7); ABS Nucleated RBC 0 10^3/ul; Eosinophil % 5.7 % (0-6); Hematocrit 29 % (42-52); Hemoglobin 9.4 g/dl (14.0-18.0); Lymphocyte % 9.2 % (25-47); Mean Corpuscular HGB Conc 33 g/dl (31-36); Mean Corpuscular Hemoglobin 35 pg (27-31); Mean Corpuscular Volume 106 fL (80-94); Mean Platelet Volume 8.6 um3 (7.4-10.4); Nucleated Red Blood Cells % 0.3; Platelet Count 143 10^3/ul (150-450); Red Cell Distribution Width 17 % (10.5-15); White Blood Count 7.4 10^3/ul (3.5-10.8)
[2017-12-23] MEDS: Vancomycin(*) 1,250 MG in NS 0.9% 250 ML* 250 ML IVPB SCH (06:22)
[2017-12-23 06:27] LABS: EGFR Non-African American 93.2 (>60)
[2017-12-23] MEDS: Metoprolol Succinate XL TAB* 100 MG PO SCH (08:45)
[2017-12-23] MEDS: Citalopram TAB* 20 MG PO SCH (08:45)
[2017-12-23] MEDS: Insulin LISPRO* 1 UNITS UNIT SUBCUT SCH ×4 (08:50→22:10)
[2017-12-23] MEDS ORDERED: Cholecalciferol TAB* 1000 UNITS PO SCH (09:00)
--- NOTE | 2017-12-23 11:03 | PN ---
Subjective Date of Service: 12/23/17 Interval History: Patient seen in ICU. s/p 2 units pRBC today. Hct improved to 29. NO active bleed. Remain NPO for EGD today. On IVF LR 125 while NPO and protonix drip. Patient feels better in term of breathing. he did diure Family History: Unchanged from Admission Social History: Unchanged from Admission Past Medical History: Unchanged from Admission Objective Active Medications: Acetaminophen (Tylenol Tab*) 650 mg PO Q4H PRN PRN Reason: FEVER/PAIN Al Hydrox/Mg Hydrox/Simethicone (Maalox Plus*) 30 ml PO Q6H PRN PRN Reason: INDIGESTION Atorvastatin Calcium (Lipitor*) 20 mg PO 2100 [facility] Last Admin: 12/22/17 21:17 Dose: 20 mg Citalopram Hydrobromide (Celexa Tab*) 20 mg PO DAILY [facility] Last Admin: 12/23/17 08:45 Dose: 20 mg Dextrose (D50w Syringe 50 Ml*) 12.5 gm IV PUSH .FOR FS < 60 - SS PRN PRN Reason: FS < 60 Diazepam (Valium Tab(*)) 5 mg PO Q8H PRN PRN Reason: ANXIETY Last Admin: 12/22/17 21:17 Dose: 5 mg Docusate Sodium (Colace Cap*) 100 mg PO BID PRN PRN Reason: CONSTIPATION Cefepime HCl (Maxipime 2 Gm In Dextrose Duplex (*)) 2 gm in 50 mls @ 100 mls/ hr IV Q12H [facility] Stop: 12/23/17 21:59 Last Admin: 12/22/17 21:21 Dose: 100 mls/hr Metronidazole/Sodium Chloride (Flagyl 500 Mg Ivpb*) 500 mg in 100 mls @ 100 mls /hr IVPB Q12H [facility] Last Admin: 12/23/17 00:02 Dose: 100 mls/hr Lactated Ringer's (Lactated Ringers 1000 Ml Bag*) 1,000 mls @ 125 mls/hr IV PER RATE [facility] Last Admin: 12/22/17 21:16 Dose: 125 mls/hr Lactated Ringer's (Lactated Ringers 1000 Ml Bag*) 1,000 mls @ 125 mls/hr IV PER RATE [facility] Pantoprazole Sodium 80 mg/ (Sodium Chloride) 250 mls @ 25 mls/hr IV Q10H [facility] Last Admin: 12/23/17 00:29 Dose: 25 mls/hr Cefepime HCl 2 gm/ Sodium (Chloride) 50 mls @ 100 mls/hr IVPB Q12H [facility] Insulin Human Lispro (Humalog*) 0 units SUBCUT ACHS [facility]; Protocol Last Admin: 12/23/17 08:50 Dose: Not Given Metoprolol Succinate (Toprol Xl Tab*) 100 mg PO DAILY [facility] Last Admin: 12/23/17 08:45 Dose: 100 mg Ondansetron HCl (Zofran Inj*) 4 mg IV Q4H PRN PRN Reason: NAUSEA/VOMITING Oxycodone/Acetaminophen (Percocet 5/325 Tab*) 1 tab PO Q4H PRN PRN Reason: Pain Senna (Senokot Tab*) 1 tab PO BID PRN PRN Reason: CONSTIPATION Tamsulosin HCl (Flomax Cap*) 0.4 mg PO BEDTIME [facility] Last Admin: 12/22/17 21:17 Dose: 0.4 mg Vital Signs - 8 hr 12/23/17 12/23/17 12/23/17 03:00 03:01 04:00 Temperature 98.8 F Pulse Rate 90 92 98 Respiratory 26 24 28 Rate Blood Pressure 136/72 (mmHg) O2 Sat by Pulse 96 95 97 Oximetry 12/23/17 12/23/17 12/23/17 04:01 05:00 05:01 Temperature Pulse Rate 97 102 92 Respiratory 29 27 26 Rate Blood Pressure 152/79 139/91 (mmHg) O2 Sat by Pulse 96 96 95 Oximetry 12/23/17 12/23/17 12/23/17 06:00 06:01 07:00 Temperature Pulse Rate 93 92 101 Respiratory 20 23 19 Rate Blood Pressure 129/80 133/81 (mmHg) O2 Sat by Pulse 97 96 95 Oximetry 12/23/17 12/23/17 12/23/17 07:44 07:47 08:00 Temperature 98 F Pulse Rate 94 Respiratory 26 24 Rate Blood Pressure (mmHg) O2 Sat by Pulse 95 96 Oximetry 12/23/17 12/23/17 12/23/17 08:01 09:00 09:01 Temperature Pulse Rate 98 96 93 Respiratory 30 26 27 Rate Blood Pressure 124/100 133/85 (mmHg) O2 Sat by Pulse 97 97 97 Oximetry 12/23/17 10:00 Temperature Pulse Rate 87 Respiratory 25 Rate Blood Pressure 137/83 (mmHg) O2 Sat by Pulse 97 Oximetry Oxygen Devices in Use Now: Nasal Cannula Appearance: obese. no acute distress. Eyes: No Scleral Icterus, - - EOMI Ears/Nose/Mouth/Throat: - - dry oral mucosa (NPO) Neck: Trachea Midline, - Respiratory: - - crackle diminished at base. Limited to carly lateral auscultations Cardiovascular: - - irregular regluar. rate controlled Abdominal: NL Sounds; No Tenderness; No Distention Extremities: - - edema, left foot ulcers Neurological: Alert and Oriented x 3 Result Diagrams: 12/24/17 09:00 12/24/17 09:00 Microbiology and Other Data: Microbiology 12/22/17 01:00 Gram Stain - Final Leg Left 12/22/17 01:00 Gram Stain - Final Foot Left 12/22/17 00:40 Nasal Screen MRSA (PCR) - Final Nasal Mrsa Not Detected Assess/Plan/Problems-Billing Assessment: 67 y/o male admitted for left ankle pain, weakness found to be in rapid afib started no cardizem drip, and anemic (Hct 40's one month ago) down to 26 at presentations. His Xaretlo on hold started on protonix drip. Held his BP med ( amlodipine, valsartan and HCTZ) - Patient Problems (1) Anemia Current Visit: Yes Status: Acute Priority: High Code(s): D64.9 - ANEMIA, UNSPECIFIED SNOMED Code(s): 508260410 Comment: - H/H dropped to 24 from 40 in (11/08); accompanied with dark tarry stool past few weeks and the fact he is on Xarelto does raise the suspision for UGB. - Will keep Xarelto on hold (held since admission). - s/p 2 units pRBC's on 12/22/17 and Hct up to 29. - Continue Protonix drip; GI consulted. EGD today (2) Hypotension Current Visit: Yes Status: Acute Priority: High Comment: - Multifactorial. Suspect due to Anemia and GI bleed, also related to SIRS from his heel ulcer. - Held his Amlodipine, Valsartan and HCTZ. - Cotninue LR at 125 ml while NPO. Improving - off his cardizem drip and will keep him only on metoprolol XL to avoid bouncing back on rapid afib (3) Atrial fibrillation Current Visit: Yes Status: Chronic Code(s): I48.91 - UNSPECIFIED ATRIAL FIBRILLATION SNOMED Code(s): 53770863 Comment: - Admitted for afib with RVR secondary to his anemia and hypotensions - HR controlled this morning. Off his cardizem drip and keep him on metoprolol for now - keep xarelto on hold due to his anemia - re-evaluate in am (4) Ulcer of left heel Current Visit: Yes Status: Acute Code(s): L97.429 - NON-PRS CHRONIC ULCER OF LEFT HEEL AND MIDFOOT W UNSP SEVERT SNOMED Code(s): 377821852 Comment: - His ulcer appears to be healing properly. clean edge with no discharge -I do greatly appreciate input from ID. CT of the heel ordered. - Wound consult ordered. Awaiting input. - Patient on Vanco/Cefepime/Flagyl on admssions. (5) Type 2 diabetes mellitus Current Visit: No Status: Chronic Priority: Medium Comment: - Diagnosis present in his history, but I do not see chronic medications - I will place him on SS (6) DVT prophylaxis Current Visit: No Status: Acute Priority: Low Code(s): MRU9095 - SNOMED Code(s): 195616593 Comment: - Off Xaretlo. Keep him off anticoagulation for today. pending clinical progress and input will consider low dose lovenox in am if he H/H improves and pending GI input.
[2017-12-23] MEDS: Cefepime 2 GM in Dextrose(*) 2 GM/50 ML BAG IV SCH (11:31)
--- NOTE | 2017-12-23 12:13 | RAD ---
INDICATION: Sepsis. Relevant surgical history includes amputation of the left fifth toe April 2017. COMPARISON: Similar examination dated May 03, 2017 TECHNIQUE: Noncontrast CT examination of the left ankle and hindfoot. Axial images were acquired and sagittal and coronal reformats were created and independently analyzed. FINDINGS: Unless otherwise specified, comparisons below reference the CT examination dated May 03, 2017. The visualized bones including the distal most tibia and fibula, ankle joint and bones of the hindfoot are grossly intact and appropriately aligned. There is no radiographically apparent fracture or dislocation. The cortices are intact. There is infiltration of the subcutaneous tissue that does not extend significantly beneath the dermal layer into the muscular layer or the joint. There is no definite drainable joint effusion. Along the medial aspect of the ankle there are dilated and tortuous tubular structures consistent with large varicose veins measuring up to 6 mm in diameter. IMPRESSION: CT findings are consistent with cellulitis and/or chronic induration of the subcutaneous tissue likely due to dilated superficial varicose veins can be seen along the medial aspect of the right lower leg and ankle. Most likely the patient will benefit from medical grade compression stockings (20 to 30 mm Hg). Pathologic superficial venous reflux can be objectively documented with a left lower extremity venous reflux ultrasound examination which can be done on an outpatient basis.
[2017-12-23] MEDS ORDERED: Metoclopramide IV* 5 MG/ML 2 ML VIAL IV PRN (15:14)
[2017-12-23] MEDS ORDERED: Naloxone* 0.4 MG/ML 1 ML VIAL IV PRN (15:14)
[2017-12-23] MEDS ORDERED: fentaNYL* 50 MCG/ML 2 ML VIAL (100 MCG VIAL) IV PRN (15:14)
[2017-12-23] MEDS ORDERED: Acetaminophen TAB* 325 MG PO PRN (15:14)
--- NOTE | 2017-12-23 15:24 | CONSULT ---
Consult Consult: Zainab CLARK
[2017-12-23] MEDS: Diazepam TAB(*) 5 MG PO PRN (16:47)
--- NOTE | 2017-12-23 16:49 | CONS ---
CONSULTATION REPORT: DATE OF CONSULT: 12/23/17 REQUESTING PROVIDER: Dr. Whitley. CONSULTING SERVICE: Infectious Disease. REASON FOR CONSULT: Leukocytosis, leg wound. IMPRESSION: 1. Left ankle pain with range of motion and weightbearing, which is mild. Ankle x- ray unremarkable, could still have occult fracture, I think less likely would be suppurative tenosynovitis and very unlikely to be a septic arthritis. 2. Chronic left calcaneus wound with an underlying osteomyelitis, which was treated with a long course of IV antibiotics, hyperbarics, and is much improved. 3. Bilateral venous insufficiency wounds, which are improving. 4. Right fourth toe osteomyelitis, treated earlier in the year with antibiotics and hyperbarics. 5. Morbid obesity. 6. Melena with anemia undergoing evaluation for gastrointestinal bleed. RECOMMENDATIONS: 1. Stop vancomycin. We will continue Ceftin and Flagyl while evaluating his ankle and legs. 2. CT of the left ankle for fracture or abscess. HISTORY OF PRESENT ILLNESS: This is 67-year-old man, who has been followed over the last 3 months by me in the wound clinic for lower extremity ulcers and infections. He had 6 weeks of antibiotics for his chronic osteomyelitis of the calcaneus on the left and the right fourth toe. He underwent hyperbaric treatment. He has had significant improvement in both areas. He has had some intermittent ulceration of the bilateral lower legs above the ankle. He has casting on the left ankle and then a soft cast. He felt like he had some instability in the left ankle with wobbling and pain, and so he came to the emergency room on 12/21/17. He was found to have leukocytosis. He was started on broad-spectrum antibiotics. His CRP was pretty normal. He was found to have a new macrocytic anemia though he had been macrocytic for some time. He had melena and so has been seen by GI. He had cultures taken here which include left leg and foot wound cultures, which are pending. Gram stain shows no organisms. He is on vancomycin, cefepime, and Flagyl, tolerating it well. He still has some left ankle pain, which is not severe and no pain at rest. When he gets up on, the ankle hurts a little bit. He has had no fevers or chills. He has had a loss of appetite about the last month. His weight has been steady. PAST MEDICAL HISTORY: 1. Morbid obesity. 2. Left calcaneus ulcer with chronic osteomyelitis. 3. Right fourth toe ulcer with chronic osteomyelitis. 4. Anxiety. 5. Hypertension. 6. Benign prostatic hypertrophy. 7. Atrial fibrillation, on anticoagulation. 8. Status post abdominal aortic aneurysm repair. 9. Status post tonsillectomy. 10. Status post bilateral inguinal hernia repair. 11. Status post left fifth toe amputation. MEDICATIONS: 1. Tylenol. 2. Lipitor. 3. Cefepime 2 g every 12 hours. 4. Diltiazem. 5. Diazepam. 6. Docusate. 7. Flagyl 500 mg every 12 hours. 8. Oxycodone. 9. Pantoprazole. 10. IV tamsulosin. ALLERGIES: PENICILLIN, which caused upset stomach. FAMILY HISTORY: No recurrent infections. SOCIAL HISTORY: He is a nonsmoker. No travel. No sick contacts. REVIEW OF SYSTEMS: All negative to 14-point review of systems except as noted above in the history of present illness. PHYSICAL EXAM: Vital Signs: Temperature 37, heart rate 80, respiratory rate 20 , blood pressure 133/85, oxygen saturation 97% on 2 L nasal cannula. In general , he is awake, not in distress. Neurologic: He is oriented x3. Follows all commands. HEENT: There is no conjunctival hemorrhage. Oropharynx is without lesions. Neck is supple without mass. Heart has regular rate and rhythm without murmurs, rubs, or gallops. Lungs are clear to auscultation bilaterally. Abdomen: Soft, nontender, nondistended. There are bowel sounds present. Skin: There is no rash or splinter hemorrhage. There are bilateral lower extremity superficial ulcerations without surrounding erythema. Musculoskeletal: There is no spine tenderness to palpation. There is a left calcaneus ulceration with granulation tissue, no surrounding erythema. No other foot ulceration of the left ankle. There is slight warmth, pain with flexion, not extension, and some pain and tenderness over the malleoli bilaterally. LABORATORY DATA: White blood cell count 7, hemoglobin 9, platelets 143. Creatinine is 0.8. C-reactive protein is 15. Please see impressions and recommendations outlined above. Thanks for asking me to see Mr. Luevano in consultation. [id number]/[facility] #: [id number] [facility]
[2017-12-23] MEDS: Atorvastatin* 20 MG TAB PO SCH (22:11)
[2017-12-23] MEDS: Tamsulosin CAP* 0.4 MG PO SCH (22:11)
[2017-12-23] MEDS: Cefepime(*) 2 GM in NS 0.9% 50 ML* 50 ML IVPB SCH (22:11)
[2017-12-23] MEDS ORDERED: Zolpidem TAB* 5 MG PO ONE (22:27)
[2017-12-24] MEDS: metroNIDAZOLE IV 500 MG/100ML* 500 MG/100 ML BAG IVPB SCH ×2 (00:15→12:00)
[2017-12-24] MEDS: Diazepam TAB(*) 5 MG PO PRN ×2 (00:16→22:15)
[2017-12-24 05:58] LABS: ABS Basophils 0 10^3/ul (0-0.2); ABS Eosinophils 0 10^3/ul (0-0.6); ABS Lymphocytes 0.6 10^3/ul (1.0-4.8); ABS Monocytes 0.5 10^3/ul (0-0.8); ABS Neutrophils 9.3 10^3/ul (1.5-7.7); ABS Nucleated RBC 0 10^3/ul; Eosinophil % 0.2 % (0-6); Hematocrit 28 % (42-52); Hemoglobin 9.4 g/dl (14.0-18.0); Lymphocyte % 5.8 % (25-47); Mean Corpuscular HGB Conc 33 g/dl (31-36); Mean Corpuscular Hemoglobin 35 pg (27-31); Mean Corpuscular Volume 106 fL (80-94); Mean Platelet Volume 9.2 um3 (7.4-10.4); Nucleated Red Blood Cells % 0.2; Platelet Count 168 10^3/ul (150-450); Red Blood Count 2.69 10^6/ul (4.00-5.40); Red Cell Distribution Width 17 % (10.5-15); White Blood Count 10.5 10^3/ul (3.5-10.8)
[2017-12-24 06:15] LABS: EGFR Non-African American 98.7 (>60)
[2017-12-24] MEDS: Pantoprazole IV* 80 MG in NS 0.9% 250 ML* 250 ML IV SCH ×2 (06:21→16:47)
--- NOTE | 2017-12-24 07:52 | PRO ---
DATE OF PROCEDURE: 12/23/17 - ROOM #ICU-01 PROCEDURE PERFORMED: EGD with biopsy and BICAP. INDICATION: Melena. MEDICATIONS GIVEN: See Anesthesia report. DESCRIPTION OF THE PROCEDURE: After the EGD procedure including the risks, benefits, and alternatives, not limited to perforation, surgery, and/or were explained to the patient, written consent was then obtained. IV medication was given and a bite-block was placed between the teeth. The adult Olympus gastroscope was inserted through the patient's mouth to the upper esophageal sphincter into the esophagus. At the distal esophagus, there was LA A erosive esophagitis. The scope was advanced through the patent lower esophageal sphincter into the stomach. Upon retroflexion, he had gastropathy suspicious for portal hypertensive gastropathy. The scope was then advanced through the stomach into the antral region, which had diffuse gastritis and also 4 clean-based ulcerations with nodularity. The ulcers were treated with BICAP at 20 ramirez with good effect given his Xarelto use even though they were clean based. Biopsies were taken from the ulcer edge and biopsies were also taken for CLOtesting for H. pylori. The scope was then advanced through the widely patent pylorus into the duodenal bulb and through the C loop and the distal duodenum appeared normal in appearance without any lesions or ulcerations. The scope was then withdrawn from the patient. GE junction was at 40 cm. The patient tolerated the procedure well. He returned to the recovery room in stable condition. IMPRESSION AND PLAN: 1. Complete esophagogastroduodenoscopy with biopsies and BICAP at 20 ramirez. 2. Four superficial clean-based gastric ulcerations treated with BICAP at 20 ramirez as above. 3. Gastritis. 4. Biopsies taken of ulcer edge to rule out malignancy. 5. Biopsies taken for CLOtesting and H. pylori testing. 6. LA A esophagitis. RECOMMENDATIONS: B.i.d. Protonix therapy for 3 months. Recommend repeat EGD in 2 to 3 months to re-look at the gastric ulcers. He did have gastropathy suspicious for portal nature. Previous records indicates he consumed a fair amount alcohol. I would recommend complete cessation of alcohol use. A previous ultrasound back in 2007 showed echogenicity and hepatomegaly. Given that his platelet count is 140,000, there is suspicion that he is developing cirrhosis. He should follow up in the office with a repeat liver ultrasound and possible elastography at that time. In addition, he should completely cease alcohol use and also consider 10% loss of weight. I suspect the gastropathy may be related to early cirrhosis and he should attempt to lose weight and also cease complete alcohol use. He should also cease any use of NSAIDS given I suspect this was the insult that caused his gastric ulcerations. [id number]/[facility] #: [id number] [facility]
[2017-12-24] MEDS: Insulin LISPRO* 1 UNITS UNIT SUBCUT SCH ×4 (08:13→21:33)
[2017-12-24] MEDS: Metoprolol Succinate XL TAB* 100 MG PO SCH (08:13)
[2017-12-24] MEDS: Citalopram TAB* 20 MG PO SCH (08:13)
[2017-12-24 09:09] LABS: ABS Basophils 0 10^3/ul (0-0.2); ABS Eosinophils 0 10^3/ul (0-0.6); ABS Lymphocytes 0.6 10^3/ul (1.0-4.8); ABS Monocytes 0.7 10^3/ul (0-0.8); ABS Nucleated RBC 0 10^3/ul; Eosinophil % 0.1 % (0-6); Hematocrit 28 % (42-52); Hemoglobin 9.2 g/dl (14.0-18.0); Mean Corpuscular HGB Conc 33 g/dl (31-36); Mean Corpuscular Hemoglobin 35 pg (27-31); Mean Corpuscular Volume 105 fL (80-94); Mean Platelet Volume 8.5 um3 (7.4-10.4); Nucleated Red Blood Cells % 0.1; Platelet Count 159 10^3/ul (150-450); Red Blood Count 2.65 10^6/ul (4.00-5.40); Red Cell Distribution Width 17 % (10.5-15); White Blood Count 10.4 10^3/ul (3.5-10.8)
[2017-12-24 09:18] LABS: INR 1.16 (0.77-1.02)
[2017-12-24 09:31] LABS: EGFR Non-African American 98.7 (>60)
[2017-12-24] MEDS: Cefepime(*) 2 GM in NS 0.9% 50 ML* 50 ML IVPB SCH (10:02)
[2017-12-24] MEDS ORDERED: Heparin VIAL(*) 5000 UNITS/ML VIAL (FIVE THOUSAND) SUBCUT SCH (14:00)
--- NOTE | 2017-12-24 14:44 | PN ---
Subjective Date of Service: 12/24/17 Interval History: Seen this morning in ICU. Doing well. Out of bed to chair with PT. Underwent EGD yesterday and it did showed 4 clean based gastric ulcers. NO active bleed. H/H drop to 28 today. Start PO full liquid. No acute events. Family History: Unchanged from Admission Social History: Unchanged from Admission Past Medical History: Unchanged from Admission Objective Active Medications: Acetaminophen (Tylenol Tab*) 650 mg PO Q4H PRN PRN Reason: FEVER/PAIN Al Hydrox/Mg Hydrox/Simethicone (Maalox Plus*) 30 ml PO Q6H PRN PRN Reason: INDIGESTION Atorvastatin Calcium (Lipitor*) 20 mg PO 2100 [facility]S AT [facility] Last Admin: 12/23/17 22:11 Dose: 20 mg Citalopram Hydrobromide (Celexa Tab*) 20 mg PO DAILY [facility] 234 B[facility]S AT [facility] Last Admin: 12/24/17 08:13 Dose: 20 mg Dextrose (D50w Syringe 50 Ml*) 12.5 gm IV PUSH .FOR FS < 60 - SS PRN PRN Reason: FS < 60 Diazepam (Valium Tab(*)) 5 mg PO Q8H PRN PRN Reason: ANXIETY Last Admin: 12/24/17 00:16 Dose: 5 mg Docusate Sodium (Colace Cap*) 100 mg PO BID PRN PRN Reason: CONSTIPATION Metronidazole/Sodium Chloride (Flagyl 500 Mg Ivpb*) 500 mg in 100 mls @ 100 mls /hr IVPB Q12H [facility] 234 B[facility]S AT [facility] Last Admin: 12/24/17 12:00 Dose: 100 mls/hr Pantoprazole Sodium 80 mg/ (Sodium Chloride) 250 mls @ 25 mls/hr IV Q10H [facility] 234 B[facility]S AT [facility] Last Admin: 12/24/17 06:21 Dose: 25 mls/hr Cefepime HCl 2 gm/ Sodium (Chloride) 50 mls @ 100 mls/hr IVPB Q12H [facility] 234 BEDS AT [facility] Last Admin: 12/24/17 10:02 Dose: 100 mls/hr Insulin Human Lispro (Humalog*) 0 units SUBCUT ACHS [facility] 234 BEDS AT [facility]; Protocol Last Admin: 12/24/17 12:17 Dose: 1 units Metoprolol Succinate (Toprol Xl Tab*) 100 mg PO DAILY [facility] 234 [facility]EDS AT [facility] Last Admin: 12/24/17 08:13 Dose: 100 mg Ondansetron HCl (Zofran Inj*) 4 mg IV Q4H PRN PRN Reason: NAUSEA/VOMITING Oxycodone/Acetaminophen (Percocet 5/325 Tab*) 1 tab PO Q4H PRN PRN Reason: Pain Senna (Senokot Tab*) 1 tab PO BID PRN PRN Reason: CONSTIPATION Tamsulosin HCl (Flomax Cap*) 0.4 mg PO BEDTIME [facility] Last Admin: 12/23/17 22:11 Dose: 0.4 mg Vital Signs - 8 hr 12/24/17 12/24/17 12/24/17 07:00 07:55 08:00 Temperature 96.6 F Pulse Rate 107 102 Respiratory 20 20 21 Rate Blood Pressure 144/113 (mmHg) O2 Sat by Pulse 95 97 97 Oximetry 12/24/17 12/24/17 12/24/17 08:01 09:00 09:01 Temperature Pulse Rate 86 91 100 Respiratory 20 18 18 Rate Blood Pressure 154/101 132/87 (mmHg) O2 Sat by Pulse 98 94 96 Oximetry 12/24/17 12/24/17 12/24/17 10:00 11:00 11:01 Temperature Pulse Rate 86 85 89 Respiratory 16 20 20 Rate Blood Pressure 148/90 118/83 (mmHg) O2 Sat by Pulse 89 87 87 Oximetry 12/24/17 12/24/17 12/24/17 11:56 12:00 13:00 Temperature 97.1 F Pulse Rate 88 Respiratory 20 32 Rate Blood Pressure 141/100 148/86 (mmHg) O2 Sat by Pulse 95 Oximetry 12/24/17 14:00 Temperature Pulse Rate 86 Respiratory 22 Rate Blood Pressure 152/98 (mmHg) O2 Sat by Pulse 90 Oximetry Oxygen Devices in Use Now: Nasal Cannula Appearance: Obese. no acute distress. Eyes: No Scleral Icterus, - - EOMI Ears/Nose/Mouth/Throat: NL Teeth, Lips, Gums Neck: NL Appearance and Movements; NL JVP, Trachea Midline Respiratory: Symmetrical Chest Expansion and Respiratory Effort, - - diminished at bases Abdominal: NL Sounds; No Tenderness; No Distention, - - Obese Extremities: - - Edema bilateral Neurological: Alert and Oriented x 3 Result Diagrams: 12/24/17 09:00 12/24/17 09:00 Microbiology and Other Data: Microbiology 12/22/17 01:00 Gram Stain - Final Leg Left 12/22/17 01:00 Gram Stain - Final Foot Left 12/22/17 00:40 Nasal Screen MRSA (PCR) - Final Nasal Mrsa Not Detected Assess/Plan/Problems-Billing Assessment: 67 y/o male admitted for left ankle pain, weakness found to be in rapid afib started no cardizem drip, and anemic (Hct 40's one month ago) down to 26 at presentations. His Xaretlo on hold started on protonix drip. Held his BP med ( amlodipine, valsartan and HCTZ) - Patient Problems (1) Hypotension Current Visit: Yes Status: Acute Priority: High Comment: - Multifactorial. Suspect due to Anemia and GI bleed, Not related to sepsis as the patient was not septic - Held his Amlodipine, Valsartan and HCTZ. Will keep on hold and reassess daily - Off LR advance diet now that he is post EGD - off his cardizem drip and will keep him only on metoprolol XL to avoid bouncing back on rapid afib (2) Anemia Current Visit: Yes Status: Acute Priority: High Code(s): D64.9 - ANEMIA, UNSPECIFIED SNOMED Code(s): 333782882 Comment: - H/H dropped to 24 from 40 in (11/08); accompanied with dark tarry stool past few weeks and the fact he is on Xarelto does raise the suspision for UGB. - Will keep Xarelto on hold (held since admission). - s/p 2 units pRBC's on 12/22/17 and Hct up to 30 down to 28 today 12/24/17 - Continue Protonix drip; GI consulted. EGD showed 4 gastric ulcer no bleed. Will maintain on PPI bid and follow up EGD in 2-3 months with GI outpatient (3) Atrial fibrillation Current Visit: Yes Status: Chronic Code(s): I48.91 - UNSPECIFIED ATRIAL FIBRILLATION SNOMED Code(s): 19360016 Comment: - Admitted for afib with RVR secondary to his anemia and hypotensions - HR controlled this morning. Off his cardizem drip and keep him on metoprolol for now - keep xarelto on hold due to his anemia. Will place him on heparin for DVT prop today and re-evaluate CBC in am before resuming Xaretlo (4) Ulcer of left heel Current Visit: Yes Status: Acute Code(s): L97.429 - NON-PRS CHRONIC ULCER OF LEFT HEEL AND MIDFOOT W UNSP SEVERT SNOMED Code(s): 202927070 Comment: - His ulcer appears to be healing properly. clean edge with no discharge -I do greatly appreciate input from ID. The wound culture is contaminate and does not need to be treated. CT of the heel ordered no fracture and no abscess - Wound consult ordered. - Patient on Vanco/Cefepime/Flagyl on admssions. I will discontinue as he is not septic and no evidence of infection clinicaly. Case discussed with ID (5) Type 2 diabetes mellitus Current Visit: No Status: Chronic Priority: Medium Comment: - Diagnosis present in his history, but I do not see chronic medications - I will place him on SS (6) DVT prophylaxis Current Visit: No Status: Acute Priority: Low Code(s): NCL5826 - SNOMED Code(s): 105865275 Comment: - Off Xaretlo. start heparin 5 000 Q 8hr before resuming xarelto to ensure that his H/H stable
[2017-12-24 16:04] LABS: Hematocrit 31 % (42-52); Hemoglobin 10.2 g/dl (14.0-18.0); Mean Corpuscular HGB Conc 33 g/dl (31-36); Mean Corpuscular Hemoglobin 35 pg (27-31); Mean Corpuscular Volume 105 fL (80-94); Mean Platelet Volume 8.8 um3 (7.4-10.4); Platelet Count 186 10^3/ul (150-450); Red Blood Count 2.92 10^6/ul (4.00-5.40); Red Cell Distribution Width 17 % (10.5-15); White Blood Count 11.9 10^3/ul (3.5-10.8)
[2017-12-24 16:19] LABS: INR 1.11 (0.77-1.02)
[2017-12-24 17:55] LABS: ABS Basophils 0.1 10^3/ul (0-0.2); ABS Eosinophils 0 10^3/ul (0-0.6); ABS Lymphocytes 0.8 10^3/ul (1.0-4.8); ABS Neutrophils 10.1 10^3/ul (1.5-7.7)
[2017-12-24 17:59] LABS: ABS Basophils 0 10^3/ul (0-0.2); ABS Neutrophils 10.2 10^3/ul (1.5-7.7); Monocytes % 4 % (0-7)
[2017-12-24] MEDS: Tamsulosin CAP* 0.4 MG PO SCH (22:15)
[2017-12-24] MEDS: Atorvastatin* 20 MG TAB PO SCH (22:15)
[2017-12-24] MEDS: Heparin VIAL(*) 5000 UNITS/ML VIAL (FIVE THOUSAND) SUBCUT SCH (22:17)
[2017-12-25] MEDS: Pantoprazole IV* 80 MG in NS 0.9% 250 ML* 250 ML IV SCH ×2 (02:48→12:56)
[2017-12-25] MEDS: Heparin VIAL(*) 5000 UNITS/ML VIAL (FIVE THOUSAND) SUBCUT SCH ×2 (06:30→12:56)
[2017-12-25 06:44] LABS: ABS Basophils 0.1 10^3/ul (0-0.2); ABS Eosinophils 0.3 10^3/ul (0-0.6); ABS Lymphocytes 1.4 10^3/ul (1.0-4.8); ABS Monocytes 1.2 10^3/ul (0-0.8); ABS Neutrophils 7.4 10^3/ul (1.5-7.7); ABS Nucleated RBC 0 10^3/ul; Eosinophil % 2.9 % (0-6); Hematocrit 30 % (42-52); Hemoglobin 10.1 g/dl (14.0-18.0); Lymphocyte % 13.3 % (25-47); Mean Corpuscular HGB Conc 34 g/dl (31-36); Mean Corpuscular Hemoglobin 35 pg (27-31); Mean Corpuscular Volume 105 fL (80-94); Mean Platelet Volume 8.9 um3 (7.4-10.4); Nucleated Red Blood Cells % 0.1; Platelet Count 200 10^3/ul (150-450); Red Blood Count 2.85 10^6/ul (4.00-5.40); Red Cell Distribution Width 17 % (10.5-15); White Blood Count 10.3 10^3/ul (3.5-10.8)
[2017-12-25 07:00] LABS: EGFR Non-African American 91.9 (>60)
[2017-12-25] MEDS: Insulin LISPRO* 1 UNITS UNIT SUBCUT SCH ×4 (08:58→19:58)
[2017-12-25] MEDS: Metoprolol Succinate XL TAB* 100 MG PO SCH (09:24)
[2017-12-25] MEDS: Citalopram TAB* 20 MG PO SCH (09:24)
--- NOTE | 2017-12-25 16:27 | PN ---
Subjective Date of Service: 12/25/17 Interval History: Much more aware. No acute events. tolerating po. significant decrease in his leg edema. Patient would like to go home and have outpatient Physical therapy referral and VNS Family History: Unchanged from Admission Social History: Unchanged from Admission Past Medical History: Unchanged from Admission Objective Active Medications: Acetaminophen (Tylenol Tab*) 650 mg PO Q4H PRN PRN Reason: FEVER/PAIN Al Hydrox/Mg Hydrox/Simethicone (Maalox Plus*) 30 ml PO Q6H PRN PRN Reason: INDIGESTION Atorvastatin Calcium (Lipitor*) 20 mg PO 2100 [facility] Last Admin: 12/24/17 22:15 Dose: 20 mg Citalopram Hydrobromide (Celexa Tab*) 20 mg PO DAILY [facility] Last Admin: 12/25/17 09:24 Dose: 20 mg Dextrose (D50w Syringe 50 Ml*) 12.5 gm IV PUSH .FOR FS < 60 - SS PRN PRN Reason: FS < 60 Diazepam (Valium Tab(*)) 5 mg PO Q8H PRN PRN Reason: ANXIETY Last Admin: 12/24/17 22:15 Dose: 5 mg Docusate Sodium (Colace Cap*) 100 mg PO BID PRN PRN Reason: CONSTIPATION Heparin Sodium (Porcine) (Heparin Vial(*)) 5,000 units SUBCUT Q8HR [facility] Last Admin: 12/25/17 12:56 Dose: 5,000 units Pantoprazole Sodium 80 mg/ (Sodium Chloride) 250 mls @ 25 mls/hr IV Q10H [facility] Last Admin: 12/25/17 12:56 Dose: 25 mls/hr Insulin Human Lispro (Humalog*) 0 units SUBCUT [facility]; Protocol Last Admin: 12/25/17 12:30 Dose: 1 units Metoprolol Succinate (Toprol Xl Tab*) 100 mg PO DAILY [facility] Last Admin: 12/25/17 09:24 Dose: 100 mg Ondansetron HCl (Zofran Inj*) 4 mg IV Q4H PRN PRN Reason: NAUSEA/VOMITING Oxycodone/Acetaminophen (Percocet 5/325 Tab*) 1 tab PO Q4H PRN PRN Reason: Pain Senna (Senokot Tab*) 1 tab PO BID PRN PRN Reason: CONSTIPATION Tamsulosin HCl (Flomax Cap*) 0.4 mg PO BEDTIME [facility] Last Admin: 12/24/17 22:15 Dose: 0.4 mg Vital Signs - 8 hr 12/25/17 11:27 Temperature 96.7 F Pulse Rate 92 Respiratory 20 Rate Blood Pressure 141/80 (mmHg) O2 Sat by Pulse 91 Oximetry Oxygen Devices in Use Now: None Appearance: Morbid obese Eyes: No Scleral Icterus Ears/Nose/Mouth/Throat: NL Teeth, Lips, Gums, Mucous Membranes Moist Neck: NL Appearance and Movements; NL JVP, Trachea Midline Respiratory: Symmetrical Chest Expansion and Respiratory Effort, Clear to Auscultation Cardiovascular: NL Sounds; No Murmurs; No JVD, - - irregularly irregular Abdominal: NL Sounds; No Tenderness; No Distention Extremities: - - Edema bilaterally, chronic venous stasis. Result Diagrams: 12/25/17 06:20 12/25/17 06:20 Microbiology and Other Data: Microbiology 12/22/17 01:00 Gram Stain - Final Leg Left 12/22/17 01:00 Gram Stain - Final Foot Left 12/22/17 00:40 Nasal Screen MRSA (PCR) - Final Nasal Mrsa Not Detected Assess/Plan/Problems-Billing Assessment: 67 y/o male admitted for left ankle pain, weakness found to be in rapid afib started no cardizem drip, and anemic (Hct 40's one month ago) down to 26 at presentations. His Xaretlo on hold started on protonix drip. Held his BP med ( amlodipine, valsartan and HCTZ) - Patient Problems (1) Hypotension Current Visit: Yes Status: Acute Priority: High Comment: - Multifactorial. Suspect due to Anemia and GI bleed, Not related to sepsis as the patient was not septic. Resolved - Held his Amlodipine, Valsartan and HCTZ. Will keep on hold and reassess daily - Resolved, will resume his valsartan and HCTZ. will keep him amlodipine for now and may resume outpatient if need be. keep it on hold as it can exacerbated his leg edema (2) Anemia Current Visit: Yes Status: Acute Priority: High Code(s): D64.9 - ANEMIA, UNSPECIFIED SNOMED Code(s): 910782876 Comment: - H/H dropped to 24 from 40 in (11/08); accompanied with dark tarry stool past few weeks and the fact he is on Xarelto does raise the suspision for UGB. - He was kept off Xarelto (held since admission). - s/p 2 units pRBC's on 12/22/17 and Hct stable in 30. Cleared to be resume Xaretlo. - Will d/c Protonix drip; - GI consulted. EGD showed 4 gastric ulcer no bleed. Will maintain on PPI bid and follow up EGD in 2-3 months with GI outpatient (3) Atrial fibrillation Current Visit: Yes Status: Chronic Code(s): I48.91 - UNSPECIFIED ATRIAL FIBRILLATION SNOMED Code(s): 19801324 Comment: - Admitted for afib with RVR secondary to his anemia and hypotensions - resolved. s/p cardizem drip. maintained on mtoprolol - kept xarelto on hold due to his anemia. but his H/H been stable on heparin will resume Xaretlo but lower dose of 15 mg and this can be increase in few weeks to 20 mg if his H/H remain stable (4) Ulcer of left heel Current Visit: Yes Status: Acute Code(s): L97.429 - NON-PRS CHRONIC ULCER OF LEFT HEEL AND MIDFOOT W UNSP SEVERT SNOMED Code(s): 540957671 Comment: - His ulcer appears to be healing properly. clean edge with no discharge -I do greatly appreciate input from ID. The wound culture is contaminate and does not need to be treated. CT of the heel ordered no fracture and no abscess - Wound consult appreciated. "aquacell to open wounds. Cover with dry gauze and rolled gauze. Use SCD's for compression" - Patient on Vanco/Cefepime/Flagyl on admssions. I will discontinue as he is not septic and no evidence of infection clinicaly. Case discussed with ID (5) Type 2 diabetes mellitus Current Visit: No Status: Chronic Priority: Medium Comment: - Diagnosis present in his history, but I do not see chronic medications - I will place him on SS (6) DVT prophylaxis Current Visit: No Status: Acute Priority: Low Code(s): RZS3190 - SNOMED Code(s): 293191253 Comment: - Off Xaretlo. start heparin 5 000 Q 8hr before resuming xarelto to ensure that his H/H stable
[2017-12-25] MEDS: Hydrochlorothiazide TAB* 25 MG PO SCH (17:54)
[2017-12-25] MEDS: Losartan TAB* 25 MG PO SCH (17:54)
[2017-12-25] MEDS: Atorvastatin* 20 MG TAB PO SCH (20:11)
[2017-12-25] MEDS: Tamsulosin CAP* 0.4 MG PO SCH (20:11)
[2017-12-25] MEDS: Diazepam TAB(*) 5 MG PO PRN (23:08)
[2017-12-26 06:26] LABS: ABS Basophils 0.1 10^3/ul (0-0.2); ABS Eosinophils 0.5 10^3/ul (0-0.6); ABS Lymphocytes 1.4 10^3/ul (1.0-4.8); ABS Monocytes 1.2 10^3/ul (0-0.8); ABS Neutrophils 6.1 10^3/ul (1.5-7.7); ABS Nucleated RBC 0 10^3/ul; Eosinophil % 5.1 % (0-6); Hematocrit 31 % (42-52); Hemoglobin 10.4 g/dl (14.0-18.0); Mean Corpuscular HGB Conc 33 g/dl (31-36); Mean Corpuscular Hemoglobin 35 pg (27-31); Mean Corpuscular Volume 104 fL (80-94); Mean Platelet Volume 8.6 um3 (7.4-10.4); Nucleated Red Blood Cells % 0.2; Platelet Count 218 10^3/ul (150-450); Red Blood Count 2.99 10^6/ul (4.00-5.40); Red Cell Distribution Width 16 % (10.5-15); White Blood Count 9.3 10^3/ul (3.5-10.8)
[2017-12-26 06:44] LABS: EGFR Non-African American 85.9 (>60)
[2017-12-26] MEDS: Insulin LISPRO* 1 UNITS UNIT SUBCUT SCH ×4 (07:35→21:23)
[2017-12-26] MEDS: Metoprolol Succinate XL TAB* 100 MG PO SCH (07:49)
[2017-12-26] MEDS: Rivaroxaban TAB(*) 15 MG PO SCH (07:49)
[2017-12-26] MEDS: Losartan TAB* 25 MG PO SCH (07:50)
[2017-12-26] MEDS: Citalopram TAB* 20 MG PO SCH (07:51)
[2017-12-26] MEDS: Hydrochlorothiazide TAB* 25 MG PO SCH (07:51)
--- NOTE | 2017-12-26 16:43 | PN ---
Subjective Date of Service: 12/26/17 Interval History: Patient seen today. His is in the room. I discussed with the patient that I do believe he benefit from short term rehab. He was insisting and prefer to go home. However; his did interfere and spoke to his and strongly voice her concerns to her . she was not pleased with his decision of going home directly and asked him to consider rehab. He agreed, reluctantly, to consider rehab. I will sign out to the incoming Provider to arrange for short term rehab. Patient states that since his hard cast has been removed from his right leg he has not been able to put support on that leg. also he has been having difficulty with his strength. He did move his bowel today. No nausea or vomit. taking po well Family History: Unchanged from Admission Social History: Unchanged from Admission Past Medical History: Unchanged from Admission Objective Active Medications: Acetaminophen (Tylenol Tab*) 650 mg PO Q4H PRN PRN Reason: FEVER/PAIN Al Hydrox/Mg Hydrox/Simethicone (Maalox Plus*) 30 ml PO Q6H PRN PRN Reason: INDIGESTION Atorvastatin Calcium (Lipitor*) 20 mg PO 2100 [facility] Last Admin: 12/25/17 20:11 Dose: 20 mg Citalopram Hydrobromide (Celexa Tab*) 20 mg PO DAILY [facility] Last Admin: 12/26/17 07:51 Dose: 20 mg Dextrose (D50w Syringe 50 Ml*) 12.5 gm IV PUSH .FOR FS < 60 - SS PRN PRN Reason: FS < 60 Diazepam (Valium Tab(*)) 5 mg PO Q8H PRN PRN Reason: ANXIETY Last Admin: 12/25/17 23:08 Dose: 5 mg Docusate Sodium (Colace Cap*) 100 mg PO BID PRN PRN Reason: CONSTIPATION Last Admin: 12/26/17 12:02 Dose: 100 mg Hydrochlorothiazide (Hydrodiuril Tab*) 25 mg PO DAILY [facility] Last Admin: 12/26/17 07:51 Dose: 25 mg Insulin Human Lispro (Humalog*) 0 units SUBCUT ACHS [facility]; Protocol Last Admin: 12/26/17 12:19 Dose: 1 units Losartan Potassium (Cozaar Tab*) 100 mg PO DAILY [facility] Last Admin: 12/26/17 07:50 Dose: 100 mg Metoprolol Succinate (Toprol Xl Tab*) 100 mg PO DAILY [facility] Last Admin: 12/26/17 07:49 Dose: 100 mg Omeprazole (Prilosec Cap*) 20 mg PO BID [facility] Ondansetron HCl (Zofran Inj*) 4 mg IV Q4H PRN PRN Reason: NAUSEA/VOMITING Oxycodone/Acetaminophen (Percocet 5/325 Tab*) 1 tab PO Q4H PRN PRN Reason: Pain Rivaroxaban (Xarelto(*)) 15 mg PO DAILY [facility] Last Admin: 12/26/17 07:49 Dose: 15 mg Senna (Senokot Tab*) 1 tab PO BID PRN PRN Reason: CONSTIPATION Last Admin: 12/26/17 12:02 Dose: 1 tab Tamsulosin HCl (Flomax Cap*) 0.4 mg PO BEDTIME [facility] Last Admin: 12/25/17 20:11 Dose: 0.4 mg Vital Signs - 8 hr 12/26/17 12:41 Temperature 98.9 F Pulse Rate 96 Respiratory 18 Rate Blood Pressure 155/89 (mmHg) O2 Sat by Pulse 97 Oximetry Oxygen Devices in Use Now: None Appearance: morbid obese. stable no distress Eyes: No Scleral Icterus, - - EOMI Ears/Nose/Mouth/Throat: NL Teeth, Lips, Gums, Mucous Membranes Moist Neck: NL Appearance and Movements; NL JVP Respiratory: Symmetrical Chest Expansion and Respiratory Effort Cardiovascular: NL Sounds; No Murmurs; No JVD, - - irregularly irregular Abdominal: NL Sounds; No Tenderness; No Distention, - - obese Extremities: - - edema + 3 . chronic venous stasis. Result Diagrams: 12/26/17 06:15 12/26/17 06:15 Microbiology and Other Data: Microbiology 12/22/17 01:00 Gram Stain - Final Leg Left 12/22/17 01:00 Gram Stain - Final Foot Left 12/22/17 00:40 Nasal Screen MRSA (PCR) - Final Nasal Mrsa Not Detected Assess/Plan/Problems-Billing Assessment: 67 y/o male admitted for left ankle pain, weakness found to be in rapid afib started no cardizem drip, and anemic (Hct 40's one month ago) down to 26 at presentations. His Xaretlo on hold started on protonix drip. Held his BP med ( amlodipine, valsartan and HCTZ) - Patient Problems (1) Hypotension Current Visit: Yes Status: Acute Priority: High Comment: - Multifactorial. Suspect due to Anemia and GI bleed, Not related to sepsis as the patient was not septic. Resolved - Resolved, will resume his valsartan and HCTZ. will keep him amlodipine for now and may resume outpatient if need be. keep it on hold as it can exacerbated his leg edema (2) Anemia Current Visit: Yes Status: Acute Priority: High Code(s): D64.9 - ANEMIA, UNSPECIFIED SNOMED Code(s): 266315467 Comment: - H/H dropped to 24 from 40 in (11/08); accompanied with dark tarry stool past few weeks and the fact he is on Xarelto does raise the suspision for UGB. - He was kept off Xarelto (held since admission). - s/p 2 units pRBC's on 12/22/17 and Hct stable in 30. Cleared to be resume Xaretlo. - off Protonix drip; - GI consulted. EGD showed 4 gastric ulcers no bleed. Will maintain on PPI bid and follow up EGD in 2-3 months with GI outpatient as they did find evidence of cirrhosis - I explained to patient the importance of ETOH cessations (3) Atrial fibrillation Current Visit: Yes Status: Chronic Code(s): I48.91 - UNSPECIFIED ATRIAL FIBRILLATION SNOMED Code(s): 63684455 Comment: - Admitted for afib with RVR secondary to his anemia and hypotensions - resolved. s/p cardizem drip. maintained on mtoprolol - kept xarelto on hold due to his anemia. but his H/H been stable on heparin will resume Xaretlo but lower dose of 15 mg and this can be increase in few weeks to 20 mg if his H/H remain stable (4) Ulcer of left heel Current Visit: Yes Status: Acute Code(s): L97.429 - NON-PRS CHRONIC ULCER OF LEFT HEEL AND MIDFOOT W UNSP SEVERT SNOMED Code(s): 396287356 Comment: - His ulcer appears to be healing properly. clean edge with no discharge -I do greatly appreciate input from ID. The wound culture is contaminate and does not need to be treated. CT of the heel ordered no fracture and no abscess - Wound consult appreciated. "aquacell to open wounds. Cover with dry gauze and rolled gauze. Use SCD's for compression" - Patient on Vanco/Cefepime/Flagyl on admssions. I will discontinue as he is not septic and no evidence of infection clinicaly. Case discussed with ID - Patient will need appointment for Wound care appointment if he was to go home , VNS if he was to go home and PT/OT if he was to go home. - However his was able to convince for short term rehab. will request placement in am with the multidisplinary team meeting (5) Type 2 diabetes mellitus Current Visit: No Status: Chronic Priority: Medium Comment: - Diagnosis present in his history, but I do not see chronic medications - I will place him on SS (6) DVT prophylaxis Current Visit: No Status: Acute Priority: Low Code(s): DVR3308 - SNOMED Code(s): 166497884 Comment: - Off Xaretlo. start heparin 5 000 Q 8hr before resuming xarelto to ensure that his H/H stable Status and Disposition: - Patient will need appointment for Wound care appointment if he was to go home , VNS if he was to go home and PT/OT if he was to go home. - However his was able to convince for short term rehab. will request placement in am 12/27/17 with the multidisciplinary team meeting
[2017-12-26] MEDS: Omeprazole CAP* 20 MG PO SCH (17:36)
[2017-12-26] MEDS: Diazepam TAB(*) 5 MG PO PRN (17:45)
[2017-12-26] MEDS: Tamsulosin CAP* 0.4 MG PO SCH (21:46)
[2017-12-26] MEDS: Atorvastatin* 20 MG TAB PO SCH (21:46)
[2017-12-27] MEDS: Diazepam TAB(*) 5 MG PO PRN ×2 (01:57→21:10)
[2017-12-27 05:03] LABS: ABS Basophils 0.1 10^3/ul (0-0.2); ABS Eosinophils 0.3 10^3/ul (0-0.6); ABS Lymphocytes 1.6 10^3/ul (1.0-4.8); ABS Monocytes 1.2 10^3/ul (0-0.8); ABS Neutrophils 5.8 10^3/ul (1.5-7.7); ABS Nucleated RBC 0 10^3/ul; Eosinophil % 3.8 % (0-6); Hematocrit 31 % (42-52); Hemoglobin 10.3 g/dl (14.0-18.0); Lymphocyte % 17.5 % (25-47); Mean Corpuscular HGB Conc 34 g/dl (31-36); Mean Corpuscular Hemoglobin 35 pg (27-31); Mean Corpuscular Volume 103 fL (80-94); Mean Platelet Volume 8.5 um3 (7.4-10.4); Nucleated Red Blood Cells % 0.2; Platelet Count 236 10^3/ul (150-450); Red Blood Count 2.98 10^6/ul (4.00-5.40); Red Cell Distribution Width 16 % (10.5-15)
[2017-12-27] MEDS: Insulin LISPRO* 1 UNITS UNIT SUBCUT SCH ×4 (07:40→21:04)
[2017-12-27] MEDS: Citalopram TAB* 20 MG PO SCH (08:37)
[2017-12-27] MEDS: Omeprazole CAP* 20 MG PO SCH ×2 (08:37→17:43)
[2017-12-27] MEDS: Metoprolol Succinate XL TAB* 100 MG PO SCH (08:37)
[2017-12-27] MEDS: Hydrochlorothiazide TAB* 25 MG PO SCH (08:37)
[2017-12-27] MEDS: Rivaroxaban TAB(*) 15 MG PO SCH (08:37)
[2017-12-27] MEDS: Losartan TAB* 25 MG PO SCH (08:37)
--- NOTE | 2017-12-27 09:45 | PN ---
Progress Note - Progress Note Date of Service: 12/27/17 SOAP: Subjective: CC: left heel pain HPI: 67 year old man with left heel wound and recent increase in left leg swelling and pain without redness or drainage. Found to have upper GI bleed. Imaging of left lower leg was benign. With elevation the swelling in both legs is improved and the pain is improving as well. No fever, rash, or diarrhea. Objective: Vital Signs Temp 36.7 C 12/27/17 07:41 Pulse 109 12/27/17 07:41 Resp 20 12/27/17 07:41 BP 140/106 12/27/17 07:41 Pulse Ox 92 12/27/17 07:41 Intake & Output 12/26/17 12/27/17 12/27/17 18:59 06:59 18:59 Intake Total 1190 180 Output Total 880 1525 300 Balance 310 -1525 -120 Intake: Oral 1190 180 Output: Urine 880 1525 300 Other: Estimated Void Medium # Bowel Movements 2 1 Estimated Stool Amount Medium Small Gen:awake, no distress HEENT: no thrush Heart:RRR no murmur Lungs:CTA BL Abd:+BS NTND soft Skin: no rash MSK: BL LE edema; left calcaneous wound no erythema or tenderness Laboratory Results - last 24 hr 12/26/17 12/26/17 12/26/17 12:05 16:44 20:59 WBC RBC Hgb Hct MCV MCH MCHC RDW Plt Count MPV Neut % (Auto) Lymph % (Auto) Woodson % (Auto) Eos % (Auto) Baso % (Auto) Absolute Neuts (auto) Absolute Lymphs (auto) Absolute Monos (auto) Absolute Eos (auto) Absolute Basos (auto) Absolute Nucleated RBC Nucleated RBC % POC Glucose (mg/dL) 142 H 121 H 121 H 12/27/17 12/27/17 04:54 07:35 WBC 9.0 RBC 2.98 L Hgb 10.3 L Hct 31 L MCV 103 H MCH 35 H MCHC 34 RDW 16 H Plt Count 236 MPV 8.5 Neut % (Auto) 64.6 Lymph % (Auto) 17.5 L Woodson % (Auto) 13.3 H Eos % (Auto) 3.8 Baso % (Auto) 0.8 Absolute Neuts (auto) 5.8 Absolute Lymphs (auto) 1.6 Absolute Monos (auto) 1.2 H Absolute Eos (auto) 0.3 Absolute Basos (auto) 0.1 Absolute Nucleated RBC 0 Nucleated RBC % 0.2 POC Glucose (mg/dL) 108 H Assessment: 1. left leg chronic pressure related wound, improvin2 2. left heel and ankle pain with swelling due to venous insufficiency 3. UGI bleed, with gastritis, stable 4. morbid obesity Plan: 1. continue elevation and when upright can add paty wraps to progress to compression stockings 2. wound clinic follow up
--- NOTE | 2017-12-27 12:38 | PN ---
Subjective Date of Service: 12/27/17 Interval History: Patient seen and examined at bedside. Denies fever, chills, shortness of breath , chest discomfort, N/V. Pt states that he had previously been constipated with no BM since 12/22, he now reports diarrhea. Pt states that he was previously told that he had Type 2 DM and was started on Metformin. He states that he later had more blood work and was told that he didn 't need to be on the Metformin. He states that he just watches the amount of sugar that he is eating. Family History: Unchanged from Admission Social History: Unchanged from Admission Past Medical History: Unchanged from Admission Objective Active Medications: Acetaminophen (Tylenol Tab*) 650 mg PO Q4H PRN Reason: FEVER/PAIN Al Hydrox/Mg Hydrox/Simethicone (Maalox Plus*) 30 ml PO Q6H PRN Reason: INDIGESTION Atorvastatin Calcium (Lipitor*) 20 mg PO 2100 [facility] Citalopram Hydrobromide (Celexa Tab*) 20 mg PO DAILY [facility] Dextrose (D50w Syringe 50 Ml*) 12.5 gm IV PUSH .FOR FS < 60 - SS PRN Reason: FS < 60 Diazepam (Valium Tab(*)) 5 mg PO Q8H PRN Reason: ANXIETY Docusate Sodium (Colace Cap*) 100 mg PO BID PRN Reason: CONSTIPATION Hydrochlorothiazide (Hydrodiuril Tab*) 25 mg PO DAILY [facility] Insulin Human Lispro (Humalog*) 0 units SUBCUT ACHS [facility]; Protocol Losartan Potassium (Cozaar Tab*) 100 mg PO DAILY [facility] Metoprolol Succinate (Toprol Xl Tab*) 100 mg PO DAILY [facility] Omeprazole (Prilosec Cap*) 20 mg PO BID [facility] Ondansetron HCl (Zofran Inj*) 4 mg IV Q4H PRN Reason: NAUSEA/VOMITING Oxycodone/Acetaminophen (Percocet 5/325 Tab*) 1 tab PO Q4H PRN Reason: Pain Rivaroxaban (Xarelto(*)) 15 mg PO DAILY [facility] Senna (Senokot Tab*) 1 tab PO BID PRN Reason: CONSTIPATION Tamsulosin HCl (Flomax Cap*) 0.4 mg PO BEDTIME [facility] Vital Signs - 8 hr 12/27/17 12/27/17 12/27/17 07:30 07:41 08:00 Temperature 98.1 F Pulse Rate 109 Respiratory 20 18 Rate Blood Pressure 148/86 140/106 (mmHg) O2 Sat by Pulse 92 95 Oximetry Oxygen Devices in Use Now: None Appearance: NAD, sitting up in a chair Ears/Nose/Mouth/Throat: Mucous Membranes Moist Respiratory: Symmetrical Chest Expansion and Respiratory Effort, Clear to Auscultation - , diminished Cardiovascular: NL Sounds; No Murmurs; No JVD, - - Heart rate irregular Abdominal: NL Sounds; No Tenderness; No Distention Extremities: - - 1-2+ bilateral LE edema, Left > Right and 1+ bilateral UE edema Skin: - - ~0.5cm x0.5 cm open area to the lateral side of the right LE. Open area to the posterior calf on the left and Healing unstagable wound to the left lateral heel. Neurological: Alert and Oriented x 3 Lines/Tubes/Other Access: Clean, Dry and Intact Peripheral IV - site benign Nutrition: Taking PO's Result Diagrams: 12/27/17 04:54 12/26/17 06:15 Microbiology and Other Data: Microbiology 12/22/17 01:00 Gram Stain - Final Leg Left 12/22/17 01:00 Gram Stain - Final Foot Left 12/22/17 00:40 Nasal Screen MRSA (PCR) - Final Nasal Mrsa Not Detected Assess/Plan/Problems-Billing Assessment: Mr. Luevano is a 67 y/o male with PMH significant for HTN, morbid obesity, anxiety, BPH, Afib and a RBBB who was admitted for left ankle pain and weakness found to be in rapid afib started noreen cardizem drip, and anemic (Hct 40's one month ago) down to 26 at presentation. - Patient Problems (1) Hypotension Comment: - Multifactorial, resolved - Suspect due to Anemia and GI bleed. Not related to sepsis as the patient was not septic - Resumed his valsartan and HCTZ - Continue to hold amlodipine for now and may resume outpatient if needed (keep it on hold as it can exacerbated his leg edema) (2) Anemia Code(s): D64.9 - ANEMIA, UNSPECIFIED SNOMED Code(s): 912552423 Comment: - H/H dropped to 24 from 40 in (11/08); accompanied with dark tarry stool past few weeks and the fact he is on Xarelto does raise the suspision for UGB - Xarelto held on admission - S/P 2 units pRBCs on 12/22/17 and Hct stable in 30s - GI consulted, input appreciated - S/P EGD, showed 4 gastric ulcers with no bleed - Off Protonix drip, cleared to be resume Xaretlo - Maintain on PPI bid and follow up EGD in 2-3 months with GI outpatient as they did find evidence of cirrhosis - Explained to patient the importance of ETOH cessations (3) Atrial fibrillation Code(s): I48.91 - UNSPECIFIED ATRIAL FIBRILLATION SNOMED Code(s): 02306278 Comment: - Admitted for afib with RVR secondary to his anemia and hypotension - S/P cardizem drip - Continue Xaretlo (lower dose of 15 mg and this can be increase in few weeks to 20 mg if his H/H remain stable) and metoprolol (4) Ulcer of left heel Code(s): L97.429 - NON-PRS CHRONIC ULCER OF LEFT HEEL AND MIDFOOT W UNSP SEVERT SNOMED Code(s): 788284176 Comment: - His ulcer appears to be healing properly - ID consult, input appreciate - Wound culture is suspected to be a contaminate and does not need to be treated - CT of the heel ordered no fracture and no abscess - Wound consult appreciated. "Aquacell to open wounds. Cover with dry gauze and rolled gauze. Use SCD's for compression" - Patient will need appointment for Wound care appointment if he was to go home and VNS if he was to go home and PT/OT if he was to go home (5) BPH (benign prostatic hyperplasia) Code(s): N40.0 - BENIGN PROSTATIC HYPERPLASIA WITHOUT LOWER URINRY TRACT SYMP SNOMED Code(s): 566950938 Comment: - Continue flomax (6) Depression with anxiety Comment: - Continue citalopram and prn valium (7) HLD (hyperlipidemia) Code(s): E78.5 - HYPERLIPIDEMIA, UNSPECIFIED SNOMED Code(s): 74968101 Comment: - Continue lipitor (8) HTN (hypertension) Current Visit: No Status: Chronic Code(s): I10 - ESSENTIAL (PRIMARY) HYPERTENSION SNOMED Code(s): 79630384 Comment: - SBP 130-160's, mostly normotensive - Continue current medication regimen (9) Type 2 diabetes mellitus Comment: - Glucose 100-150's - HgA1C, 5.4 on 09/17/17 - Diagnosis present in his history, diet controlled - Continue Lispro SS (10) DVT prophylaxis Code(s): EJX4305 - SNOMED Code(s): 915719058 Comment: - Xarelto (11) Full code status Code(s): Z78.9 - OTHER SPECIFIED HEALTH STATUS SNOMED Code(s): 441719152 Status and Disposition: Inpatient. Discharge once medically stable, he will benefit from short term rehab. - Patient will need appointment for Wound care appointment if he was to go home , VNS if he was to go home and PT/OT if he was to go home Attending: Sonali Nickerson
[2017-12-27] MEDS: Tamsulosin CAP* 0.4 MG PO SCH (21:04)
[2017-12-27] MEDS: Atorvastatin* 20 MG TAB PO SCH (21:04)
[2017-12-28] MEDS: Citalopram TAB* 20 MG PO SCH (07:33)
[2017-12-28] MEDS: Losartan TAB* 25 MG PO SCH (07:33)
[2017-12-28] MEDS: Omeprazole CAP* 20 MG PO SCH ×2 (07:33→17:58)
[2017-12-28] MEDS: Metoprolol Succinate XL TAB* 100 MG PO SCH (07:33)
[2017-12-28] MEDS: Rivaroxaban TAB(*) 15 MG PO SCH (07:33)
[2017-12-28] MEDS: Hydrochlorothiazide TAB* 25 MG PO SCH (07:33)
[2017-12-28] MEDS: Insulin LISPRO* 1 UNITS UNIT SUBCUT SCH ×4 (07:46→20:50)
--- NOTE | 2017-12-28 11:09 | PN ---
Subjective Date of Service: 12/28/17 Interval History: Patient seen and examined at bedside. Denies fever, chills, shortness of breath , chest discomfort, N/V. He reports loose stools. He also states that he "feels off this AM", he suspects that it is from the sleeping pill (he had Valium) he took last night. He continues to feel like his left ankle is unstable when ambulating. We discussed his need for rehab and that we were waiting to hear from [facility]. We also discussed the importance of continued wound care. Family History: Unchanged from Admission Social History: Unchanged from Admission Past Medical History: Unchanged from Admission Objective Active Medications: Acetaminophen (Tylenol Tab*) 650 mg PO Q4H PRN Reason: FEVER/PAIN Al Hydrox/Mg Hydrox/Simethicone (Maalox Plus*) 30 ml PO Q6H PRN Reason: INDIGESTION Atorvastatin Calcium (Lipitor*) 20 mg PO 2100 [facility] Citalopram Hydrobromide (Celexa Tab*) 20 mg PO DAILY [facility] Dextrose (D50w Syringe 50 Ml*) 12.5 gm IV PUSH .FOR FS < 60 - SS PRN Reason: FS < 60 Diazepam (Valium Tab(*)) 5 mg PO Q8H PRN Reason: ANXIETY Docusate Sodium (Colace Cap*) 100 mg PO BID PRN Reason: CONSTIPATION Hydrochlorothiazide (Hydrodiuril Tab*) 25 mg PO DAILY [facility] Insulin Human Lispro (Humalog*) 0 units SUBCUT ACHS HOADN; Protocol Losartan Potassium (Cozaar Tab*) 100 mg PO DAILY [facility] Metoprolol Succinate (Toprol Xl Tab*) 100 mg PO DAILY [facility] Omeprazole (Prilosec Cap*) 20 mg PO BID AC [facility] Ondansetron HCl (Zofran Inj*) 4 mg IV Q4H PRN Reason: NAUSEA/VOMITING Oxycodone/Acetaminophen (Percocet 5/325 Tab*) 1 tab PO Q4H PRN Reason: Pain Rivaroxaban (Xarelto(*)) 15 mg PO DAILY [facility] Senna (Senokot Tab*) 1 tab PO BID PRN Reason: CONSTIPATION Tamsulosin HCl (Flomax Cap*) 0.4 mg PO BEDTIME [facility] Vital Signs - 8 hr 12/28/17 12/28/17 03:29 07:24 Temperature 97.3 F Pulse Rate 102 90 Respiratory 22 18 Rate Blood Pressure 148/90 151/95 (mmHg) O2 Sat by Pulse 91 91 Oximetry Oxygen Devices in Use Now: None Appearance: NAD, laying in bed Ears/Nose/Mouth/Throat: Mucous Membranes Moist Respiratory: Symmetrical Chest Expansion and Respiratory Effort, Clear to Auscultation Cardiovascular: NL Sounds; No Murmurs; No JVD, RRR Abdominal: NL Sounds; No Tenderness; No Distention Extremities: - - 1-2+ bilateral LE edema Skin: - - Dressing to left LE clean and intact Neurological: Alert and Oriented x 3, NL Muscle Strength and Tone Lines/Tubes/Other Access: Clean, Dry and Intact Peripheral IV - site benign Nutrition: Taking PO's Result Diagrams: 12/27/17 04:54 12/26/17 06:15 Microbiology and Other Data: Microbiology 12/22/17 01:00 Gram Stain - Final Leg Left 12/22/17 01:00 Gram Stain - Final Foot Left 12/22/17 00:40 Nasal Screen MRSA (PCR) - Final Nasal Mrsa Not Detected Assess/Plan/Problems-Billing Assessment: Mr. Luevano is a 67 y/o male with PMH significant for HTN, morbid obesity, anxiety, BPH, Afib and a RBBB who was admitted for left ankle pain and weakness found to be in rapid afib started noreen cardizem drip, and anemic (Hct 40's one month ago) down to 26 at presentation. - Patient Problems (1) Hypotension Comment: - Multifactorial, resolved - Suspect due to Anemia and GI bleed. Not related to sepsis as the patient was not septic - Resumed his valsartan and HCTZ - Continue to hold amlodipine for now and may resume outpatient if needed (keep it on hold as it can exacerbated his leg edema) (2) Anemia Code(s): D64.9 - ANEMIA, UNSPECIFIED SNOMED Code(s): 338957444 Comment: - H/H stable - S/P 2 units pRBCs on 12/22/17 - GI consulted, input appreciated - S/P EGD, showed 4 gastric ulcers with no bleed - Off Protonix drip, cleared to be resume Xaretlo - Maintain on PPI bid and follow up EGD in 2-3 months with GI outpatient as they did find evidence of cirrhosis - Explained to patient the importance of ETOH cessations (3) Atrial fibrillation Code(s): I48.91 - UNSPECIFIED ATRIAL FIBRILLATION SNOMED Code(s): 05427213 Comment: - Admitted for afib with RVR secondary to his anemia and hypotension - Continue Xaretlo (lower dose of 15 mg and this can be increase in few weeks to 20 mg if his H/H remain stable) and metoprolol (4) Ulcer of left heel Code(s): L97.429 - NON-PRS CHRONIC ULCER OF LEFT HEEL AND MIDFOOT W UNSP SEVERT SNOMED Code(s): 717605951 Comment: - His ulcer appears to be healing properly - ID consult, input appreciate - Wound culture is suspected to be a contaminate and does not need to be treated - CT of the heel ordered no fracture and no abscess - Wound consult appreciated. "Aquacell to open wounds. Cover with dry gauze and rolled gauze. Use SCD's or AIDEN wraps for compression" - Patient will need appointment for Wound care appointment if he was to go home and VNS if he was to go home and PT/OT if he was to go home (5) BPH (benign prostatic hyperplasia) Code(s): N40.0 - BENIGN PROSTATIC HYPERPLASIA WITHOUT LOWER URINRY TRACT SYMP SNOMED Code(s): 814468137 Comment: - Continue flomax (6) Depression with anxiety Comment: - Continue citalopram and prn valium (7) HLD (hyperlipidemia) Code(s): E78.5 - HYPERLIPIDEMIA, UNSPECIFIED SNOMED Code(s): 31901071 Comment: - Continue lipitor (8) HTN (hypertension) Current Visit: No Status: Chronic Code(s): I10 - ESSENTIAL (PRIMARY) HYPERTENSION SNOMED Code(s): 75208406 Comment: - SBP 120-150's, mostly normotensive - Continue current medication regimen (9) Type 2 diabetes mellitus Comment: - Glucose 100-130's - HgA1C, 5.4 on 09/17/17 - Diagnosis present in his history, diet controlled - Continue Lispro SS (10) DVT prophylaxis Code(s): VWI5110 - SNOMED Code(s): 314884185 Comment: - Xarelto (11) Full code status Code(s): Z78.9 - OTHER SPECIFIED HEALTH STATUS SNOMED Code(s): 648047918 Status and Disposition: Inpatient. Discharge once medically stable, he will benefit from short term rehab. - Patient will need appointment for Wound care appointment if he was to go home , VNS if he was to go home and PT/OT if he was to go home Attending: Sonali Nickerson
[2017-12-28] MEDS: Atorvastatin* 20 MG TAB PO SCH (20:50)
[2017-12-28] MEDS: Tamsulosin CAP* 0.4 MG PO SCH (20:50)
[2017-12-29] MEDS: Diazepam TAB(*) 5 MG PO PRN (01:19)
[2017-12-29] MEDS: Omeprazole CAP* 20 MG PO SCH ×2 (07:49→16:30)
[2017-12-29] MEDS: Rivaroxaban TAB(*) 15 MG PO SCH (09:10)
[2017-12-29] MEDS: Citalopram TAB* 20 MG PO SCH (09:10)
[2017-12-29] MEDS: Metoprolol Succinate XL TAB* 100 MG PO SCH (09:10)
[2017-12-29] MEDS: Losartan TAB* 25 MG PO SCH (09:10)
[2017-12-29] MEDS: Hydrochlorothiazide TAB* 25 MG PO SCH (09:11)
[2017-12-29] MEDS: Insulin LISPRO* 1 UNITS UNIT SUBCUT SCH ×4 (09:11→20:56)
--- NOTE | 2017-12-29 14:26 | PN ---
Subjective Date of Service: 12/29/17 Interval History: Pt c/o left ankle being unstable. No c/o pain. Used to have a harder cast on the left foot which was removed recently Family History: Unchanged from Admission Social History: Unchanged from Admission Past Medical History: Unchanged from Admission Objective Active Medications: Acetaminophen (Tylenol Tab*) 650 mg PO Q4H PRN PRN Reason: FEVER/PAIN Al Hydrox/Mg Hydrox/Simethicone (Maalox Plus*) 30 ml PO Q6H PRN PRN Reason: INDIGESTION Atorvastatin Calcium (Lipitor*) 20 mg PO 2100 [facility] Last Admin: 12/28/17 20:50 Dose: 20 mg Citalopram Hydrobromide (Celexa Tab*) 20 mg PO DAILY [facility] Last Admin: 12/29/17 09:10 Dose: 20 mg Dextrose (D50w Syringe 50 Ml*) 12.5 gm IV PUSH .FOR FS < 60 - SS PRN PRN Reason: FS < 60 Diazepam (Valium Tab(*)) 5 mg PO Q8H PRN PRN Reason: ANXIETY Last Admin: 12/29/17 01:19 Dose: 5 mg Docusate Sodium (Colace Cap*) 100 mg PO BID PRN PRN Reason: CONSTIPATION Last Admin: 12/26/17 12:02 Dose: 100 mg Hydrochlorothiazide (Hydrodiuril Tab*) 25 mg PO DAILY [facility] Last Admin: 12/29/17 09:11 Dose: 25 mg Insulin Human Lispro (Humalog*) 0 units SUBCUT [facility]; Protocol Last Admin: 12/29/17 13:45 Dose: 1 units Losartan Potassium (Cozaar Tab*) 100 mg PO DAILY [facility] Last Admin: 12/29/17 09:10 Dose: 100 mg Metoprolol Succinate (Toprol Xl Tab*) 100 mg PO DAILY [facility] Last Admin: 12/29/17 09:10 Dose: 100 mg Omeprazole (Prilosec Cap*) 20 mg PO BID [facility] Last Admin: 12/29/17 07:49 Dose: 20 mg Ondansetron HCl (Zofran Inj*) 4 mg IV Q4H PRN PRN Reason: NAUSEA/VOMITING Oxycodone/Acetaminophen (Percocet 5/325 Tab*) 1 tab PO Q4H PRN PRN Reason: Pain Rivaroxaban (Xarelto(*)) 15 mg PO DAILY [facility] Last Admin: 12/29/17 09:10 Dose: 15 mg Senna (Senokot Tab*) 1 tab PO BID PRN PRN Reason: CONSTIPATION Last Admin: 12/26/17 12:02 Dose: 1 tab Tamsulosin HCl (Flomax Cap*) 0.4 mg PO BEDTIME [facility] Last Admin: 12/28/17 20:50 Dose: 0.4 mg Vital Signs - 8 hr 12/29/17 12/29/17 12/29/17 07:18 08:00 11:19 Temperature 97.9 F 97.4 F Pulse Rate 88 83 Respiratory 18 18 18 Rate Blood Pressure 140/78 128/80 (mmHg) O2 Sat by Pulse 94 94 96 Oximetry Oxygen Devices in Use Now: None Appearance: 67 yo M in nAD, aAOx3 Eyes: No Scleral Icterus, PERRLA Ears/Nose/Mouth/Throat: NL Teeth, Lips, Gums, Mucous Membranes Moist Neck: NL Appearance and Movements; NL JVP, Trachea Midline Respiratory: Symmetrical Chest Expansion and Respiratory Effort, Clear to Auscultation Cardiovascular: NL Sounds; No Murmurs; No JVD, - - irregular Abdominal: NL Sounds; No Tenderness; No Distention Lymphatic: No Cervical Adenopathy Extremities: No Clubbing, Cyanosis, - - +1 pitting pedal edma b/l with venous stasis disoloration b/l distal LE's. Left ankle with what appears to be Charcot' s foot deformity, no problem with ROM, non tender to palpation Skin: No Nodules or Sclerosis, - - left heel ulcer at 3 cm in diam -stage 2-3 no evidence of infection, shallow, bottom moist, healing well Neurological: Alert and Oriented x 3, NL Muscle Strength and Tone Result Diagrams: 12/27/17 04:54 12/26/17 06:15 Microbiology and Other Data: Microbiology 12/22/17 01:00 Gram Stain - Final Leg Left 12/22/17 01:00 Gram Stain - Final Foot Left 12/22/17 00:40 Nasal Screen MRSA (PCR) - Final Nasal Mrsa Not Detected Assess/Plan/Problems-Billing Assessment: Mr. Luevano is a 67 y/o male with PMH significant for HTN, morbid obesity, anxiety, BPH, Afib and a RBBB who was admitted for left ankle pain and weakness found to be in rapid afib started on cardizem drip, and anemic (Hct 40's one month ago) down to 26 at presentation. - Patient Problems (1) Left ankle instability Comment: Will ask Dr. Hankins to see pt in consult (2) Anemia Comment: - H/H stable - S/P 2 units pRBCs on 12/22/17 - GI consulted, input appreciated - S/P EGD, showed 4 gastric ulcers with no bleed - Off Protonix drip, cleared to resume Xaretlo - Maintain on PPI bid and follow up EGD in 2-3 months with GI outpatient as they did find evidence of cirrhosis (3) Hypotension Comment: - Multifactorial, resolved - Suspect due to Anemia and GI bleed. Not related to sepsis as the patient was not septic - Resumed his valsartan and HCTZ - Continue to hold amlodipine for now and may resume outpatient if needed (keep it on hold as it can exacerbated his leg edema) (4) Ulcer of left heel Comment: - His ulcer appears to be healing properly - ID consult, input appreciate - Wound culture is suspected to be a contaminate and does not need to be treated - CT of the heel ordered no fracture and no abscess - Wound consult appreciated. "Aquacell to open wounds. Cover with dry gauze and rolled gauze. Use SCD's or AIDEN wraps for compression" - Patient will need appointment for Wound care (5) Atrial fibrillation Comment: - Admitted for afib with RVR secondary to his anemia and hypotension - Continue Xarelto (lower dose of 15 mg and this can be increased in few weeks to 20 mg if his H/H remain stable) and metoprolol -rate controlled (6) Type 2 diabetes mellitus Comment: - Glucose 100-130's - HgA1C, 5.4 on 09/17/17 - Diagnosis present in his history, diet controlled - Continue Lispro SS (7) DVT prophylaxis Comment: - Xarelto (8) Full code status Status and Disposition: Inpatient. Discharge once medically stable, he will benefit from short term rehab.
[2017-12-29] MEDS: Tamsulosin CAP* 0.4 MG PO SCH (20:56)
[2017-12-29] MEDS: Atorvastatin* 20 MG TAB PO SCH (20:56)
[2017-12-30 07:47] LABS: ABS Basophils 0.1 10^3/ul (0-0.2); ABS Eosinophils 0.3 10^3/ul (0-0.6); ABS Lymphocytes 1.3 10^3/ul (1.0-4.8); ABS Monocytes 1.4 10^3/ul (0-0.8); ABS Neutrophils 6.6 10^3/ul (1.5-7.7); ABS Nucleated RBC 0 10^3/ul; Eosinophil % 3.2 % (0-6); Hematocrit 33 % (42-52); Hemoglobin 11.1 g/dl (14.0-18.0); Lymphocyte % 13.7 % (25-47); Mean Corpuscular HGB Conc 33 g/dl (31-36); Mean Corpuscular Hemoglobin 34 pg (27-31); Mean Corpuscular Volume 101 fL (80-94); Mean Platelet Volume 8.6 um3 (7.4-10.4); Nucleated Red Blood Cells % 0; Platelet Count 289 10^3/ul (150-450); Red Cell Distribution Width 17 % (10.5-15); White Blood Count 9.6 10^3/ul (3.5-10.8)
[2017-12-30 08:08] LABS: EGFR Non-African American 94.5 (>60)
[2017-12-30] MEDS: Rivaroxaban TAB(*) 15 MG PO SCH (10:25)
[2017-12-30] MEDS: Omeprazole CAP* 20 MG PO SCH ×2 (10:25→18:10)
[2017-12-30] MEDS: Losartan TAB* 25 MG PO SCH (10:25)
[2017-12-30] MEDS: Metoprolol Succinate XL TAB* 100 MG PO SCH (10:25)
[2017-12-30] MEDS: Citalopram TAB* 20 MG PO SCH (10:25)
[2017-12-30] MEDS: Hydrochlorothiazide TAB* 25 MG PO SCH (10:25)
[2017-12-30] MEDS: Insulin LISPRO* 1 UNITS UNIT SUBCUT SCH ×5 (10:29→20:36)
[2017-12-30] MEDS: Tamsulosin CAP* 0.4 MG PO SCH (20:36)
[2017-12-30] MEDS: Atorvastatin* 20 MG TAB PO SCH (20:36)
[2017-12-30] MEDS: Diazepam TAB(*) 5 MG PO PRN (21:49)
--- NOTE | 2017-12-31 03:50 | CONS ---
ORTHOPEDIC CONSULT NOTE: DATE OF CONSULT: 12/29/17 Thank you for this orthopedic consultation. CHIEF COMPLAINT: Left ankle instability. HISTORY OF PRESENT ILLNESS: Mr. Luevano is a 67-year-old gentleman with complex medical history, who is now being walked with a walker and Podus boot and is unable to walk because of left ankle instability. He reports there is weakness and the ankle gives out when he tries to step on it. The patient has a long history of chronic heel ulcer and distal tibial wounds, treated by the [facility]. The patient and his report that he was in a hard cast that was removed on 12/20/17 and he was put on a soft boot. Before that, he had essentially not been bearing any weight on the left lower extremity for months, likely over 3 months. He does have a history of falls. He uses a walker to ambulate. He has been on and off IV and p.o. antibiotics for recurrent infections. He reports a pressure ulcer since April and it has been getting better with hyperbaric treatment. Today, the patient reports 4/10 pain and instability when he attempts to bear weight. PAST MEDICAL HISTORY: Hypertension, morbid obesity, anxiety, BPH, atrial fibrillation, right bundle branch block, chronic open ulcers, diabetes, osteomyelitis. PAST SURGICAL HISTORY: AAA repair, tonsillectomy, inguinal hernia repair bilaterally, ankle surgery, left 5th toe amputation. MEDICATIONS: Home medications: 1. Amlodipine 5 mg p.o. daily. 2. Losartan/hydrochlorothiazide 100/25 one tablet p.o. daily. 3. Xarelto 20 mg p.o. daily. 4. Atorvastatin 20 mg p.o. daily. 5. Metoprolol 100 mg p.o. daily. 6. Valium 5 mg t.i.d. p.r.n. 7. Citalopram 20 mg p.o. daily. 8. Multivitamin 1 tablet p.o. daily. 9. Tamsulosin 0.4 mg half-a-tab after dinner. 10. Aleve 220 mg p.r.n. for pain. ALLERGIES: PENICILLIN. FAMILY HISTORY: Maternal, colon cancer. Paternal, PA. SOCIAL HISTORY: The patient lives with his . She is his healthcare proxy. He ambulates minimal distance with a walker. Three alcoholic beverages per day. Remote history of smoking. REVIEW OF SYSTEMS: Positive for the left ankle pain and instability. Positive for the left heel open wound. Positive for recurrent infections. Positive for recent GI bleed, on Xarelto. Positive for history of rapid heart irregularities , diagnosed with AFib. Otherwise, review of systems is negative or not relevant. PHYSICAL EXAM: Temperature 97.4, pulse 83, blood pressure 128/80. General: The patient is morbidly obese male, in bed. His is at the bedside. He is alert and oriented x3, pleasant mood and appropriate affect. Gait is not assessed. Left lower extremity: The patient's skin has multiple small open wounds. There is a heel ulcer of about 2 cm in diameter that does appear healthy and pink. There is no purulence, no foul odor. Skin is thickened and lichenous. He can dorsiflex and trell actively, although this is weak, 4+/5 strength, 5/5 plantarflexion and inversion. No obvious effusion at the ankle. The ankle is not warm or tender to palpation. Calf is soft and compressible. 1 + palpable DP pulse. He reports decreased sensation along the toes. DIAGNOSTIC STUDIES/LAB DATA: On 12/27/17 labs show white blood cells 9, hematocrit 31, platelets 236. INR 1.11. Studies: Multiple radiographs are reviewed. There are left ankle and foot films from 12/21/17, which show no obvious fracture or dislocation. There are multiple degenerative changes. 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 There is evidence of an old avulsion fracture from the lateral malleolus. ASSESSMENT AND PLAN: Mr. Luevano is a 67-year-old morbidly obese male with left ankle pain and instability upon ambulation. I think it is important to admit that the patient has not ambulated normally with fully on the left lower extremity or ankle in greater than 3 months. He has not been moving the ankle and has been in a hard cast. I feel he is deconditioned with some atrophy of the calf muscles and tendons around the ankle. He needs to work on strengthening, range of motion, and proprioception. Today, we went over several exercises he can do while in bed including ankle pumps and firing the peroneals. We will request a fracture boot to be brought to the patient. A Podus or fracture boot with more stability could help him ambulate better. He should be followed with Physical Therapy, certainly have assistance with walking and using the rolling walker at all times. He will continue his wound care per the [facility]ound [facility]. I would be happy to follow the patient after he is discharged as an outpatient. Please call [phone] for a followup appointment in the next 10 to 14 days. [id number]/[facility] #: [id number] JASMEET
[2017-12-31] MEDS: Insulin LISPRO* 1 UNITS UNIT SUBCUT SCH ×4 (08:18→23:18)
[2017-12-31] MEDS: Rivaroxaban TAB(*) 15 MG PO SCH (08:54)
[2017-12-31] MEDS: Losartan TAB* 25 MG PO SCH (08:54)
[2017-12-31] MEDS: Hydrochlorothiazide TAB* 25 MG PO SCH (08:55)
[2017-12-31] MEDS: Citalopram TAB* 20 MG PO SCH (08:55)
[2017-12-31] MEDS: Omeprazole CAP* 20 MG PO SCH ×2 (08:55→16:31)
[2017-12-31] MEDS: Metoprolol Succinate XL TAB* 100 MG PO SCH (08:55)
--- NOTE | 2017-12-31 11:53 | PN ---
Progress Note - Progress Note Date of Service: 12/31/17 SOAP: Subjective: Left ankle instability, still with difficulty ambulating. Has cam walker at bedside, not tried wearing it yet. Bed offers at [facility] available. Objective: Vitals: Temp Pulse Resp BP Pulse Ox 97.7 F 89 20 128/81 93 12/31/17 08:08 12/31/17 08:08 12/31/17 08:08 12/31/17 08:08 12/31/17 08:08 Gen: A&Ox3, NAD at rest laying in bed LLE: No tenderness to palpation, good ROM with good strength. Bandages applied and clean. +sensation. Assessment: Left ankle instability Plan: Plan for d/c to rehab today, use cam walker with WBAT LLE F/u with Dr. Garcia or Ina in the office after d/c from hospital Would likely benefit for custom AFO for left ankle
--- NOTE | 2017-12-31 18:27 | PN ---
Subjective Date of Service: 12/31/17 Interval History: Pt has no new complaints. appealing discharge today , wants to stay in hospital one more day Family History: Unchanged from Admission Social History: Unchanged from Admission Past Medical History: Unchanged from Admission Objective Active Medications: Acetaminophen (Tylenol Tab*) 650 mg PO Q4H PRN PRN Reason: FEVER/PAIN Al Hydrox/Mg Hydrox/Simethicone (Maalox Plus*) 30 ml PO Q6H PRN PRN Reason: INDIGESTION Atorvastatin Calcium (Lipitor*) 20 mg PO 2100 [facility] Last Admin: 12/30/17 20:36 Dose: 20 mg Citalopram Hydrobromide (Celexa Tab*) 20 mg PO DAILY [facility] Last Admin: 12/31/17 08:55 Dose: 20 mg Dextrose (D50w Syringe 50 Ml*) 12.5 gm IV PUSH .FOR FS < 60 - SS PRN PRN Reason: FS < 60 Diazepam (Valium Tab(*)) 5 mg PO Q8H PRN PRN Reason: ANXIETY Last Admin: 12/30/17 21:49 Dose: 5 mg Docusate Sodium (Colace Cap*) 100 mg PO BID PRN PRN Reason: CONSTIPATION Last Admin: 12/26/17 12:02 Dose: 100 mg Hydrochlorothiazide (Hydrodiuril Tab*) 25 mg PO DAILY [facility] Last Admin: 12/31/17 08:55 Dose: 25 mg Insulin Human Lispro (Humalog*) 0 units SUBCUT [facility]; Protocol Last Admin: 12/31/17 16:37 Dose: Not Given Losartan Potassium (Cozaar Tab*) 100 mg PO DAILY [facility] Last Admin: 12/31/17 08:54 Dose: 100 mg Metoprolol Succinate (Toprol Xl Tab*) 100 mg PO DAILY [facility] Last Admin: 12/31/17 08:55 Dose: 100 mg Omeprazole (Prilosec Cap*) 20 mg PO BID AC [facility] Last Admin: 12/31/17 16:31 Dose: 20 mg Ondansetron HCl (Zofran Inj*) 4 mg IV Q4H PRN PRN Reason: NAUSEA/VOMITING Oxycodone/Acetaminophen (Percocet 5/325 Tab*) 1 tab PO Q4H PRN PRN Reason: Pain Rivaroxaban (Xarelto(*)) 15 mg PO DAILY [facility] Last Admin: 12/31/17 08:54 Dose: 15 mg Senna (Senokot Tab*) 1 tab PO BID PRN PRN Reason: CONSTIPATION Last Admin: 12/26/17 12:02 Dose: 1 tab Tamsulosin HCl (Flomax Cap*) 0.4 mg PO BEDTIME [facility] Last Admin: 12/30/17 20:36 Dose: 0.4 mg Vital Signs - 8 hr 12/31/17 12/31/17 12/31/17 12:04 15:50 16:00 Temperature 97.4 F 97.6 F Pulse Rate 91 76 Respiratory 20 18 Rate Blood Pressure 101/62 112/69 (mmHg) O2 Sat by Pulse 94 93 93 Oximetry Oxygen Devices in Use Now: None Appearance: 67 yo M in NAD, AAOx3 Eyes: No Scleral Icterus, PERRLA Ears/Nose/Mouth/Throat: NL Teeth, Lips, Gums, Mucous Membranes Moist Neck: NL Appearance and Movements; NL JVP, Trachea Midline Respiratory: Symmetrical Chest Expansion and Respiratory Effort, Clear to Auscultation Cardiovascular: - - irregular Abdominal: NL Sounds; No Tenderness; No Distention, No Hepatosplenomegaly Lymphatic: No Cervical Adenopathy Extremities: No Clubbing, Cyanosis, - - +1 b/l pedal Skin: No Nodules or Sclerosis, - - left heel ulcer with dressings Neurological: Alert and Oriented x 3, NL Muscle Strength and Tone Result Diagrams: 12/30/17 07:29 12/30/17 07:29 Microbiology and Other Data: Microbiology 12/22/17 01:00 Gram Stain - Final Leg Left 12/22/17 01:00 Gram Stain - Final Foot Left 12/22/17 00:40 Nasal Screen MRSA (PCR) - Final Nasal Mrsa Not Detected Assess/Plan/Problems-Billing Assessment: Mr. Luevano is a 67 y/o male with PMH significant for HTN, morbid obesity, anxiety, BPH, Afib and a RBBB who was admitted for left ankle pain and weakness found to be in rapid afib started on cardizem drip, and anemic (Hct 40's one month ago) down to 26 at presentation. - Patient Problems (1) Left ankle instability Comment: Dr. Hankins recommended cam walker and wt bearing as tolerated for ankle instability (2) Anemia Comment: - H/H stable - S/P 2 units pRBCs on 12/22/17 - GI consulted, input appreciated - S/P EGD, showed 4 gastric ulcers with no bleed - Off Protonix drip, cleared to resume Xaretlo - Maintain on PPI bid and follow up EGD in 2-3 months with GI outpatient as they did find evidence of cirrhosis (3) Hypotension Comment: - Multifactorial, resolved - Suspect due to Anemia and GI bleed. Not related to sepsis as the patient was not septic - Resumed his valsartan and HCTZ - Continue to hold amlodipine for now and may resume outpatient if needed (keep it on hold as it can exacerbated his leg edema) (4) Ulcer of left heel Comment: - His ulcer appears to be healing properly - ID consult, input appreciate - Wound culture is suspected to be a contaminate and does not need to be treated - CT of the heel ordered no fracture and no abscess - Wound consult appreciated. "Aquacell to open wounds. Cover with dry gauze and rolled gauze. Use SCD's or AIDEN wraps for compression" - Patient will need to f/u wound care (5) Atrial fibrillation Comment: - Admitted for afib with RVR secondary to his anemia and hypotension - Continue Xarelto (lower dose of 15 mg and this can be increased in few weeks to 20 mg if his H/H remain stable) and metoprolol -rate controlled (6) Type 2 diabetes mellitus Comment: - Glucose 100-130's - HgA1C, 5.4 on 09/17/17 - Diagnosis present in his history, diet controlled - Continue Lispro SS (7) DVT prophylaxis Comment: - Xarelto (8) Full code status Status and Disposition: Inpatient. Discharge to [facility] tomorrow
[2017-12-31] MEDS: Atorvastatin* 20 MG TAB PO SCH (22:08)
[2017-12-31] MEDS: Tamsulosin CAP* 0.4 MG PO SCH (22:08)
[2017-12-31] MEDS: Diazepam TAB(*) 5 MG PO PRN (22:12)
[2018-01-01] MEDS: Insulin LISPRO* 1 UNITS UNIT SUBCUT SCH ×2 (07:48→11:34)
[2018-01-01] MEDS: Citalopram TAB* 20 MG PO SCH (08:33)
[2018-01-01] MEDS: Metoprolol Succinate XL TAB* 100 MG PO SCH (08:33)
[2018-01-01] MEDS: Hydrochlorothiazide TAB* 25 MG PO SCH (08:33)
[2018-01-01] MEDS: Losartan TAB* 25 MG PO SCH (08:33)
[2018-01-01] MEDS: Rivaroxaban TAB(*) 15 MG PO SCH (08:34)
[2018-01-01] MEDS: Omeprazole CAP* 20 MG PO SCH (08:34)
--- NOTE | 2018-01-01 13:15 | DS ---
CC: Dr. Akins; Dr. Lydia Arguelles; Dr. Cinthia Muñoz; Eva Gandara from [facility]; Dr. Peters; Dr. Hankins; Dr. Barnhart; Dr. Rocco Baca; Dr. Rojas; Dr. Casarez DISCHARGE SUMMARY: Discharge summary, which also should be regarded as history and physical of admission of the patient to [facility] and discharge summary from acute hospital stay at [facility]. DATE OF ADMISSION TO [facility]: 12/21/17 DATE OF DISCHARGE: 01/01/18 DISPOSITION: The patient is being transferred to [facility]. PRIMARY CARE PROVIDER: Dr. Akins. DISCHARGE DIAGNOSES: 1. Atrial fibrillation with rapid ventricular response. 2. Anemia due to acute gastrointestinal bleed with noted gastric ulcers and esophagitis and esophagogastroduodenoscopy performed on 12/23/[address] Peters. 3. Likely liver cirrhosis in patient with history of significant alcohol use. 4. Chronic left heel ulcer. 5. Instability of the left ankle. The patient is advised to wear CAM boot when ambulating. SECONDARY DIAGNOSES: 1. History of hypertension. 2. History of morbid obesity. 3. History of anxiety. 4. Benign prostatic hypertrophy. 5. History of chronic atrial fibrillation, on anticoagulation. 6. History of right bundle-branch block. 7. Abdominal aortic aneurysm repair. 8. History of osteomyelitis with left 5th toe osteomyelitis and amputation in April 2017. The patient also has chronic left heel ulcer since April 2017, followed at the wound care clinic by Dr. Rojas. 9. Status post tonsillectomy. 10. Inguinal hernia repair bilaterally. 11. History of ankle surgery. 12. Fifth toe amputation on the left as mentioned above. MEDICATIONS AT DISCHARGE: Include: 1. Amlodipine 5 mg p.o. daily. 2. Lipitor 20 mg at bedtime. 3. Celexa 20 mg daily. 4. Losartan/hydrochlorothiazide 100/25 one tablet daily. 5. Multivitamin 1 tablet daily. 6. Tylenol on a p.r.n. basis. 7. Maalox on a p.r.n. basis. 8. Aquacel applied to open areas on the feet, especially the left heel, covered with gauze and Tra bandages just about the lower extremities. 9. Colace 100 mg b.i.d. 10. Metoprolol succinate 100 mg daily. 11. Omeprazole 20 mg b.i.d. 12. Xarelto 15 mg daily, to increase the dose to 20 mg daily after a couple of weeks if the patient's hemoglobin and hematocrit are stable. 13. Senokot 1 tablet b.i.d. p.r.n. 14. Flomax 0.4 mg at bedtime. DISCHARGE INSTRUCTIONS: At discharge, the patient is recommended to follow up with Gastroenterology with repeat EGD in 2 to 3 months to follow up for gastric ulcerations as well as for further evaluation of possibility of liver cirrhosis. The patient is also recommended to follow up with wound care center on a weekly basis. Dressings to the left heel wound as above. The patient is recommended to be turned in positions every 2 to 4 hours. His H and H should be performed every week to document stability. HOSPITALIZATION COURSE: Albin Luevano is a 67-year-old morbidly obese male who presented to the hospital complaining of inability to bear weight on the left ankle and left ankle pain. He was noted to be in atrial fibrillation with rapid ventricular response and significantly anemic. Subsequently, his stool was noted to be heme positive. He was on Xarelto that was transiently held. Dr. Peters saw the patient in consultation, performed upper endoscopy on , which showed 4 superficial clean-based gastric ulcerations treated with BICAP at 20 ramirez, gastritis and esophagitis. It was recommended to the patient to continue PPI therapy b.i.d. for 3 months and repeat EGD in 2 to 3 months to relook at the gastric ulcers. It appeared for the patient that he also had portal gastropathy, suspicious of liver cirrhosis. Per the patient's , the patient did drink several bottles of wine a day prior to his admission. The patient was transfused 2 units of packed red blood cells for his anemia on 12/22/17 and his hemoglobin and hematocrit stabilized by that point, no further transfusions were needed. His Xarelto was started at a lower dose of 15 mg daily with recommendations to increase the dose to 20 mg if in the next couple of weeks his H and H is stable. His atrial fibrillation was controlled once his anemia stabilized. The patient was noted to have left ankle instability in Dr. Hankins's outpatient consultation. She recommended to use a CAM boot for ambulation. In regard to the patient's left heel ulcer, this is chronic and further evaluation included lower extremity CT, which showed cellulitis and chronic induration of the subcutaneous tissue, likely related to superficial varicose veins of the medial aspect of the right leg and ankle. "Superficial venous reflux can be objectively documented with a left lower extremity venous reflux ultrasound." Dr. Barnhart's outpatient consultation and initially the patient was treated transiently with IV antibiotics, essentially with the patient's ankle which is likely chronic in nature, and the patient was recommended to follow up with wound care center. LABORATORY DATA AND STUDIES PERFORMED DURING THE HOSPITAL STAY: Include: On , white blood cell count of 9.6, hemoglobin 11.1, hematocrit 33, MCV of 101, and platelets of 289. Sodium was 139, potassium 3.8, chloride 104, carbon dioxide 29, BUN 16, creatinine 0.81. Liver function tests were documented on 12/21/17 showed total bilirubin of 0.6, AST of 23, ALT of 15, and alkaline phosphatase of 89. INR last documented on 12/24/17 was 1.11. Microbiology test shows a wound culture from the left heel showed Pseudomonas, Enterococcus faecalis, Proteus mirabilis, and normal shonda. Stool occult on 12/22/17 was positive for blood. CLOtest obtained during EGD from 12/23/17 was negative. Blood cultures obtained on admission were unremarkable and negative. Transthoracic echocardiogram obtained on 12/21/17 showed EF of 60% to 65% with left ventricular diastolic filling pattern consistent with elevated left ventricular end- diastolic pressure. The subcostal view of the RV free wall appears to be hypertrophied. The right ventricular systolic pressure estimated at 30 mmHg. Compared to the study from April 2017, ventricular function was stable. RV hypokinesis newly noted. Aortic insufficiency was also noted to be mild, was new. Mitral regurgitation increased from trace to mild. Venous Doppler study obtained on 12/21/17, impression: "Normal bilateral lower extremity Doppler venous ultrasound." Ankle x-ray obtained on 12/21/17, impression: "Evidence of a remote avulsion injury of the lateral malleolus. No acute ulcers or injury. If symptoms persist, recommended repeat imaging." Chest x-ray obtained on 12/21/17, impression: "No active cardiopulmonary disease." CT of the left lower extremity was quoted above. PHYSICAL EXAM AT THE TIME OF DISCHARGE: Blood pressure 130/89, heart rate of 82 and regular, respiratory rate 18, oxygen saturation 93% on room air, temperature of 97.9. HOSPITAL COURSE: The patient is a very pleasant 67-year-old morbidly obese male with a BMI of over 50, who presented to the hospital with left ankle pain, instability of the left ankle, noted to be an atrial fibrillation with a rapid ventricular response, and noted also to have new anemia with hemoglobin as low as 7.8. The patient was noted to have melanotic stools in the recent past and his stool was also noted to be positive for blood. Due to that, the Xarelto was stopped and he underwent GI evaluation which included an upper endoscopy, which as mentioned above showed gastric ulcers. His Xarelto was cautiously started after upper endoscopy was performed and no acute bleeding was noted. The patient was continued on Protonix drip for a couple of days and then it was stopped and switched to omeprazole twice a day. The patient was transfused 2 units of packed red blood cells with an acute GI hemorrhage related anemia and his hemoglobin stabilized afterwards. The Xarelto was restarted at 15 mg a day and is recommended to be increased to 20 mg a day if within a couple of weeks his hemoglobin continues to be stable. As per the patient's , the patient has a history of drinking several bottles of wine a day and he was noted to have likely portal hypertension on his upper endoscopy. This needs to be reevaluated in approximately a couple of months by upper endoscopy again, which was recommended by the supervisor education , Dr. Peters, to be performed. The patient was in atrial fibrillation with rapid ventricular response, likely due to GI bleed, that resolved after the patient's hemoglobin stabilized. The patient has left heel ulcer that is chronic, was evaluated by Dr. Barnhart. Initially, the patient was placed intravenous antibiotics thinking that the patient may have an abscess or a deeper infection. His CT of the left lower extremity showed no evidence of such and the patient was treated with wound care only by the time of discharge. Mr. Luevano was also noted to have instability of the left ankle. Dr. Hankins saw the patient in consultation and told that it is likely related to immobility as well as a remote trauma, deconditioning and atrophy of the calf muscles and tenderness around the ankle. The patient was advised to ambulate with a CAM walker in place. It became apparent that the patient is greatly deconditioned and needs a Lauryn lift during his hospital stay. He was recommended for short-term rehabilitation facility and he accepted to go to [facility] on . Please note this is a short summary of the patient's hospital stay. Please refer to further medical records for details. TIME SPENT: Approximately 50 minutes was spent on the patient's discharge. [id number]/[facility] #: [id number] JASMEET
[2018-01-01 14:05] VITALS: BP 93/66
== END 2018-01-01 14:05 | DRG 378 ==
LOC: ED 19:07 → ICU 22:26 → MED 12-24 14:52
PROVIDERS: ADMIT Pediatrics; ATTEND Internal Medicine
PROC: 30233N1 Transfusion of Nonautologous Red Blood Cells into Peripheral Vein, Percutaneous Approach (ICD-10-PCS; principal; 2017-12-22)
PROC: 0DB68ZX Excision of Stomach, Via Natural or Artificial Opening Endoscopic, Diagnostic (ICD-10-PCS; 2017-12-23)
DX: K29.71 Gastritis, unspecified, with bleeding (principal); Z68.43 Body mass index [BMI] 50.0-59.9, adult; M86.672 Other chronic osteomyelitis, left ankle and foot; K22.10 Ulcer of esophagus without bleeding; D62 Acute posthemorrhagic anemia; L97.429 Non-pressure chronic ulcer of left heel and midfoot with unspecified severity; K76.6 Portal hypertension; R65.10 Systemic inflammatory response syndrome (SIRS) of non-infectious origin without acute organ dysfunction; K25.4 Chronic or unspecified gastric ulcer with hemorrhage; E11.621 Type 2 diabetes mellitus with foot ulcer; K92.1 Melena; I48.2 Chronic atrial fibrillation; L97.529 Non-pressure chronic ulcer of other part of left foot with unspecified severity; E11.69 Type 2 diabetes mellitus with other specified complication; E66.01 Morbid (severe) obesity due to excess calories; N40.0 Benign prostatic hyperplasia without lower urinary tract symptoms; F41.9 Anxiety disorder, unspecified; I45.10 Unspecified right bundle-branch block; I11.0 Hypertensive heart disease with heart failure; I50.9 Heart failure, unspecified; G47.30 Sleep apnea, unspecified; J42 Unspecified chronic bronchitis; E11.40 Type 2 diabetes mellitus with diabetic neuropathy, unspecified; F32.9 Major depressive disorder, single episode, unspecified; M21.172 Varus deformity, not elsewhere classified, left ankle; I87.2 Venous insufficiency (chronic) (peripheral); D53.9 Nutritional anemia, unspecified; I95.9 Hypotension, unspecified; I27.20 Pulmonary hypertension, unspecified; K29.70 Gastritis, unspecified, without bleeding; M25.372 Other instability, left ankle; K70.30 Alcoholic cirrhosis of liver without ascites; K31.89 Other diseases of stomach and duodenum; I83.92 Asymptomatic varicose veins of left lower extremity; B96.5 Pseudomonas (aeruginosa) (mallei) (pseudomallei) as the cause of diseases classified elsewhere; B95.2 Enterococcus as the cause of diseases classified elsewhere; I08.0 Rheumatic disorders of both mitral and aortic valves; M62.562 Muscle wasting and atrophy, not elsewhere classified, left lower leg; Z88.0 Allergy status to penicillin; Z82.49 Family history of ischemic heart disease and other diseases of the circulatory system; Z80.0 Family history of malignant neoplasm of digestive organs; Z87.891 Personal history of nicotine dependence; Z72.89 Other problems related to lifestyle; Z83.3 Family history of diabetes mellitus; Z86.010 Personal history of colon polyps; Z23 Encounter for immunization
CPT/HCPCS: 36415; 71045; 80048; 80053; 80061; 80202; 81003; 81015; 82272; 82565; 82607; 82728; 83540; 83550; 83605; 83735; 84100; 84439; 84443; 84484; 84520; 85014; 85018; 85025; 85060; 85610; 85730; 86140; 86850; 86900; 86901; 86922; 87040; 87070; 87077; 87086; 87184; 87186; 87205; 87641; 88305; 88342; 90686; 93005; 93306; 93970; 97597; 97598; 99285; A9270-GY; C8929; G0399; G8978-GP-CK; G8978-GP-CL; G8979-GP-CI; G8979-GP-CJ; G8987-GO-CL; G8988-GO-CJ; J0692; J1644; J1940; J3370; J3490; P9040

== ENCOUNTER 2018-03-11 13:50 | Emergency (ER) | payer MEDICARE, OTHER ==
--- OUTSIDE RECORDS SUMMARY | 2018-03-11 13:54 | XMS REPORT | Continuity of Care Document ---
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 Ramez Akins MD Primary Care Physician Unavailable Payers Type Date Identification Numbers Payment Provider Subscriber Policy Number: [id number] Medicare Albin Luevano PayID: [id number] [facility] [address] [place] [address] Policy Number: [id number] [facility] Albin Luevano Group Number: [id number] [address] PayID: [id number] [place] [address] Advance Directives Description No Information Available Problems Date Description Provider Status Onset: 10/15/2016 Type 2 diabetes mellitus Maren Castaneda, Active PA-C Onset: 10/15/2016 Pure hypercholesterolemia Maren Castaneda, Active PA-C Onset: 10/15/2016 Long-term current use of Maren Castaneda, Active anticoagulant PA-C Onset: 10/15/2016 Screening for malignant neoplasm of Maren Castaneda, Active colon PA-C Onset: 10/15/2016 History of polyp of colon Maren Castaneda, Active PA-C Onset: 10/15/2016 Family history of malignant neoplasm Maren Castaneda, Active of gastrointestinal tract PA-C Family History Date Family Member(s) Problem(s) Comments Father due to Heart Attack () Mother due to Colon Cancer () - diagnosed at age 59 Social History Type Date Description Comments Sex Unknown ETOH Use Currently consumes alcohol Prior- up to bottle wine night, no etoh since hospitalized. Tobacco Use Start: Unknown End: Patient is a former smoker Unknown Smoking Status Reviewed: 03/07/18 Patient is a former smoker Allergies, Adverse Reactions, Alerts Date Description Reaction Status Severity Comments 08/04/2016 Penicillin Active Medications Medication Date Status Form Strength Qnty SIG Indications Ordering Provider Pantoprazole 03/07/ Active Tablets DR 40mg 30tabs 1 tablet K25.9 Fredrick Sodium 2018 by mouth Fran, in in the DO morning 30 minutes before first meal. Diazepam / Active Tablets 5mg Take One Unknown 0000 Tablet By Mouth Three Times A Day as Needed Maximum Daily Dos Losartan / Active Tablets 100-25mg Take One Unknown Potassium/[place] 0000 Tablet By chlorothiazide Mouth Every Day Xarelto / Active Tablets 20mg Take One Unknown 0000 Tablet By Mouth Every Day Fluzone / Active Leanna 0.5ml Inject as Unknown High-Dose 0000 Directed Ketoconazole / Active Cream 2% Apply To Unknown 0000 Affected Area S Three Times A Day Metoprolol / Active Tablets ER 100mg 1 by mouth Unknown Succinate ER 0000 24HR every day Tamsulosin HCL 00/ Active Capsules 0.4mg Unknown 0000 Citalopram 00/ Active Tablets 20mg 1 by mouth Unknown Hydrobromide 0000 every day Atorvastatin 00/ Active Tablets 20mg Unknown Calcium 0000 Amlodipine 00/ Active Tablets 5mg 1 by mouth Unknown Besylate 0000 every day Gabapentin 00/00/ Active Capsules 100mg 90caps 3 by mouth Unknown 0000 every day Colyte With 10/15/ Hx Solution 240gm 4000ml by mouth Maren Greene Flavor Packs 2017 - Rec as Tonya 03/06/ directed PA-C 2018 Immunizations Description No Information Available Vital Signs Date Vital Result Comment 03/07/2018 3:03pm Height 74 inches 6'2" Weight 385.00 lb BP Systolic 123 mmHg BP Diastolic 73 mmHg Heart Rate 88 /min BMI (Body Mass Index) 49.4 kg/m2 10/15/2016 3:05pm Height 74 inches 6'2" Weight 405.00 lb BP Systolic 178 mmHg BP Diastolic 124 mmHg Heart Rate 76 /min BMI (Body Mass Index) 52.0 kg/m2 Results Test Date Facility Test Result H/L Range Note Laboratory test 03/07/2018 [facility](!) 1.[address] [place] [address] [phone] Ferritin Ser/Plas Mass/Vol(!) 24.3 ng/dL 24-250 Laboratory test finding 03/07/2018 [facility] Alpha 1 Antitrypsin A1a 145 mg/dL 100 - 190 1 Anti Nuclear Antibody 0.3 U 2 Ceruloplasmin 28.2 mg/dL 3 Mitochondrial AB AMA M2 Igg <0.1 U 4 Smooth Muscle Antibody Positive 1:20 Abnormal Negative 5 Hepatitis Acute PNL 03/07/2018 [facility] Hepatitis A AB Igm Nonreactive Nonreactive 6 ([facility]) Hepatitis B Core AB Igm Nonreactive Nonreactive 7 Hepatitis B Surface Ag Nonreactive Nonreactive 8 Hepatitis C Antibody 03/07/2018 [facility] HCV Index < 0.0 Index Hepatitis C Antibody Nonreactive Nonreactive Iron & Iron Binding Capacity 03/07/2018 [facility] Iron 45 g/dL Low 50-212 Unsaturated Iron Binding < 387 g/dL Total Iron Binding Capacity 402 g/dL N 250-450 Transferrin 287 mg/dL N 203-362 % Iron Saturation 11 % Low 15-55 Laboratory test 01/25/2017 [facility] Surgical Pathology SEE RESULT 9 finding BELOW CMP(!) 07/15/2016 [facility] Sodium(!) <pending> Potassium(!) <pending> Chloride Serum/Plasma(!) <pending> Carbon Dioxide Ser/Plasm(!) <pending> BUN - Urea Nitrogen(!) <pending> Calcium Ser/Plasma Mass/Vol(!) <pending> Creatinine Serum Mass/Vol(!) <pending> Glucose Serum(!) <pending> Uric Acid Ser/Plas Mass/Vol(!) <pending> BUN/Creatinine Ratio(!) <pending> Albumin Serum/Plasma(!) <pending> Alkaline Phosphatase(!) <pending> Bilirubin Total Mass/Vol(!) <pending> Ast - Sgot <pending> Alt - SGPT <pending> Protein Total <pending> Lipid Panel(!) 07/15/2016 [facility] Cholesterol Total <pending> Mass/Vol(!) HDL Cholesterol Mol/Vol <pending> 30-85 Triglycerides Ser/Plas(!) <pending> LDL Cholesterol Mass/Vol(!) <pending> CBC W/Auto 02/26/2016 [facility] White Blood <pending> Differential(!) Count Ser Auto CNT RBC Red Blood Count <pending> Hemoglobin Blood <pending> Hematocrit <pending> MCV (Corpuscular Volume) <pending> MCH (Corpuscular Hemoglobin) <pending> MCHC (Corpuscular Hemog Conc) <pending> RDW <pending> Platelet Count Blood Auto CNT <pending> MPV <pending> Lymph% <pending> [place]% <pending> Neutrophil % <pending> Absolute Lymphocytes <pending> Absolute Monocytes <pending> Absolute Neutrophils <pending> CMP(!) 02/26/2016 [facility] Sodium(!) <pending> Potassium(!) <pending> Chloride Serum/Plasma(!) <pending> Carbon Dioxide Ser/Plasm(!) <pending> BUN - Urea Nitrogen(!) <pending> Calcium Ser/Plasma Mass/Vol(!) <pending> Creatinine Serum Mass/Vol(!) <pending> Glucose Serum(!) <pending> Uric Acid Ser/Plas Mass/Vol(!) <pending> BUN/Creatinine Ratio(!) <pending> Albumin Serum/Plasma(!) <pending> Alkaline Phosphatase(!) <pending> Bilirubin Total Mass/Vol(!) <pending> Ast - Sgot <pending> Alt - SGPT <pending> Protein Total <pending> Laboratory test 02/26/2016 [facility] Magnesium Ser/Plasma <pending> finding Mass/Vol Troponin I <pending> TSH Thyroid Stim Hormone(!) <pending> 1 Test Performed by: [facility] - [facility] [address] [place] [address] 2 REFERENCE VALUE <=1.0 (Negative) Test Performed by: [facility] - [address] [place] [address] 3 REFERENCE VALUE 19.0 - 31.0 Test Performed by: [facility] - [facility] [address] [place] [address] 4 REFERENCE VALUE <0.1 (Negative) Test Performed by: [facility] - [address] [address] 5 ADDITIONAL INFORMATION This test was developed and its performance characteristics determined by [facility] in a manner consistent with CLIA requirements. This test has not been cleared or approved by the U.S. Food and Drug Administration. Test Performed by: [facility] - [address] [address] 6 [id number] SEE RESULT BELOW Name: ALBIN LUEVANO : [address]: Blu Jules MD Acct: [id number] Unit: [id number] AGE: 67 Location: ENDO Re01/25/17 SEX: M Status: DEP REF SPEC: [id number] JOHNNY: 01/25/17-[address] [facility] [address]: Blu Jules MD REQ: [id number] RECD: 01/25/17 STATUS: JASSI ALEXANDER DR: Ramez [...] performed at Main Lab DEPARTMENT OF PATHOLOGY, [address] [place] [address] Albin Mario M.D. Director [facility] # [id number] RUN DATE: 01/26/17 [facility] LAB LIVE PAGE 2 Patient: ALBIN LUEVANO [id number] (Continued) GROSS DESCRIPTION (Continued) GROSS DESCRIPTION 1. [...] performed at Main Lab DEPARTMENT OF PATHOLOGY, [address] [place] [address] Albin Mario M.D. Director [facility] # [id number] SEE RESULT BELOW Name: ALBIN LUEVANO : [address]: Blu Jules MD Acct: [id number] Unit: [id number] AGE: 67 Location: ENDO Re01/25/17 SEX: M Status: DEP REF SPEC: [id number] JOHNNY: 01/25/17-[address] [facility] [address]: Blu Jules MD REQ: [id number] RECD: 01/25/179725 STATUS: JASSI ALEXANDER DR: Ramez Akins III, [...] performed at Main Lab DEPARTMENT OF PATHOLOGY, [address] [place] [address] Albin Mario M.D. Director [facility] # [id number] RUN DATE: 01/26/17 [facility] LAB LIVE PAGE 2 Patient: ALBIN LUEVANO [id number] (Continued) GROSS DESCRIPTION (Continued) GROSS DESCRIPTION 1. [...] performed at Main Lab DEPARTMENT OF PATHOLOGY, [address] [place] [address] Albin Mario M.D. Director [facility] # [id number] Procedures Date Code Description Status 12/23/2017 65352 Moderate Sedation Services; Same Phys Each Additional 15 Completed Mins 12/23/2017 94044 EGD+Biopsy Single Or Multiple Completed 01/25/2017 75135 Moderate Sedation Services; Same Phys Each Additional 15 Completed Mins 01/25/2017 23154 Moderate Sedation Services; Same Phys Each Additional 15 Completed Mins 01/25/2017 61652 Colonoscopy W/ Snare RM Of Polyp/Tumor/Lesion Completed 11/23/2008 94783 Colonoscopy Completed 11/23/2008 49217 EGD+Biopsy Single Or Multiple Completed 08/07/2003 90542 Colonoscopy W/ Snare RM Of Polyp/Tumor/Lesion Completed Encounters Type Date Location Provider Dx Diagnosis Office Visit 10/15/2016 Gastroenter[facility] Maren Greene I48.91 Unspecified atrial 3:[facility] [place] [facility], fibrillation PA-C Z80.0 Family history of malignant neoplasm of digestive organs Z86.010 Personal history of colonic polyps Z12.11 Encounter for screening for malignant neoplasm of colon Z79.01 skilled nursing (current) use of anticoagulants Plan of Treatment 03/07/2018 - Fredrick Peters, DOK25.9 Gastric ulcer, unspecified as acute or chronic, without hemorrhage or perforationNew Medication:Pantoprazole Sodium 40 mg - 1 tablet by mouth in in the morning 30 minutes before first meal.Comments: RISKS AND BENEFITS OF THE PROCEDURE WERE DISCUSSED WITH PATIENT.D64.9 Anemia, sycyhbowjvxU67.11 Alcohol abuse, in rxefgfvyrD86.0 Nonspecific elevation of levels of transaminase and lactic acid dehydrogenase [LDH]
--- OUTSIDE RECORDS SUMMARY | 2018-03-11 13:54 | XMS REPORT | Continuity of Care Document ---
:1950 External Reference #:[id number] Author Name Fredrick Peters DO Address [address] [place] [address] [place] [address] Care Team Providers Name Role Phone Ramez Akins MD Care Team Information Network Specialist Unavailable Ramez Akins MD Primary Care Physician Unavailable Payers Type Date Identification Numbers Payment Provider Subscriber Policy Number: [id number] Medicare Albin Luevano PayID: [id number] [facility] [address] [place] [address] Policy Number: [id number] [facility] Albin Luevano Group Number: [id number] [address] PayID: [id number] [place] [address] Advance Directives Description No Information Available Problems [...] / Active Tablets 100-25mg Take One Unknown Potassium/Marshall 0000 Tablet By chlorothiazide Mouth Every Day [...] Inr(!) 1.[address] [place] [address] [phone] Ferritin Ser/Plas Mass/Vol(!) 24.3 ng/dL 24-250 Laboratory test finding 03/07/2018 [facility] Alpha 1 Antitrypsin A1a 145 mg/dL 100 - 190 1 Anti Nuclear Antibody <pending> Ceruloplasmin 28.2 mg/dL 2 Mitochondrial AB AMA M2 Igg <pending> Smooth Muscle Antibody <pending> Hepatitis Acute PNL 03/07/2018 [facility] Hepatitis A AB Igm Nonreactive Nonreactive 3 ([facility] Hepatitis B Core AB Igm Nonreactive Nonreactive 4 Hepatitis B Surface Ag Nonreactive Nonreactive 5 Hepatitis C Antibody 03/07/2018 [facility] HCV Index < 0.0 Index Hepatitis C Antibody Nonreactive Nonreactive Iron & Iron Binding Capacity 03/07/2018 [facility] Iron 45 g/dL Low 50-212 Unsaturated Iron Binding < 387 g/dL Total Iron Binding Capacity 402 g/dL N 250-450 Transferrin 287 mg/dL N 203-362 % Iron Saturation 11 % Low 15-55 Laboratory test 01/25/2017 [facility] Surgical Pathology SEE RESULT 6 finding BELOW CMP(!) 07/15/2016 [facility] Sodium(!) [...] Auto CNT <pending> MPV <pending> Lymph% <pending> Bleckley% <pending> Neutrophil % <pending> Absolute Lymphocytes <pending> [...] Stim Hormone(!) <pending> 1 Test Performed by: [address] [id number] 2 REFERENCE VALUE 19.0 - 31.0 Test Performed by: [address] [id number] 3 [id number] 6 SEE RESULT BELOW Name: ALBIN LUEVANO Kandis : [address]: Blu Jules MD Acct: [id number] Unit: [id number] AGE: 67 Location: ENDO Re01/25/17 SEX: M Status: DEP REF SPEC: [id number] JOHNNY: 01/25/17-1248 [facility] DR: Blu Jules MD REQ: [id number] RECD: 01/25/17 STATUS: JASSI ALEXANDER DR: Ramez [...] performed at Main Lab DEPARTMENT OF PATHOLOGY, [address] [place] [address] Albin Mario M.D. Director JULIA # [id number] RUN DATE: 01/26/17 [facility] LAB LIVE PAGE 2 Patient: ALBIN LUEVANO Kandis [id number] (Continued) GROSS DESCRIPTION (Continued) GROSS DESCRIPTION 1. [...] performed at Main Lab DEPARTMENT OF PATHOLOGY, [address] [place] [address] Albin Mario M.D. Director [facility] # [id number] SEE RESULT BELOW Name: ALBIN LUEVANO : [address]: Blu Jules MD Acct: [id number] Unit: [id number] AGE: 67 Location: ENDO Re01/25/17 SEX: M Status: DEP REF SPEC: [id number] JOHNNY: 01/25/17 [facility] DR: Blu Jules MD REQ: [id number] RECD: 01/25/17 STATUS: JASSI ALEXANDER DR: Ramez [...] performed at Main Lab DEPARTMENT OF PATHOLOGY, [address] [place] [address] Albin Mario M.D. Director [facility] # [id number] RUN DATE: 01/26/17 [facility] LAB LIVE PAGE 2 Patient: ALBIN LUEVANO [id number] (Continued) GROSS DESCRIPTION (Continued) GROSS DESCRIPTION 1. [...] performed at Main Lab DEPARTMENT OF PATHOLOGY, [address] [place] [address] Albin Mario M.D. Director [facility] # [id number] Procedures Date Code Description Status 12/23/2017 46940 Moderate Sedation Services; Same Phys Each Additional 15 Completed Mins 12/23/2017 94725 EGD+Biopsy Single Or Multiple Completed 01/25/2017 38191 Moderate Sedation Services; Same Phys Each Additional 15 Completed Mins 01/25/2017 17138 Moderate Sedation Services; Same Phys Each Additional 15 Completed Mins 01/25/2017 33503 Colonoscopy W/ Snare RM Of Polyp/Tumor/Lesion Completed 11/23/2008 42748 Colonoscopy Completed 11/23/2008 91943 EGD+Biopsy Single Or Multiple Completed 08/07/2003 66369 Colonoscopy W/ Snare RM Of Polyp/Tumor/Lesion Completed Encounters Type Date Location Provider Dx Diagnosis Office Visit 10/15/2016 [facility] Greene I48.91 Unspecified atrial 3:00[facility] [place], fibrillation PA-C Z80.0 Family history of malignant neoplasm of digestive organs Z86.010 Personal history of colonic polyps Z12.11 Encounter for screening for malignant neoplasm of colon 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
[2018-03-11 14:19] VITALS: BP 120/84
--- NOTE | 2018-03-11 16:36 | UC ---
Skin Complaint HPI - HPI Summary HPI Summary: 5 days of open wound to left lateral ankle and healing abrasion left webster. For about 3 weeks patient has been wearing a cam boot on his left foot to help with positioning as his foot has been inverting. Patient follows with Dr. Rick from orthopedics. Patient wears the cam boot while sleeping and almost all day. Patient has a history of diabetic peripheral neuropathy and has had his left fifth toe amputated. He has a wound care appt in 4 days. denies drainage or fever. - History of Current Complaint Chief Complaint: UCSkin Time Seen by Provider: 03/11/18 15:02 Stated Complaint: SKIN ISSUE Hx Obtained From: Patient Onset/Duration: Gradual Onset, Lasting Weeks, Still Present Timing: Constant Onset Severity: Mild Current Severity: Mild Pain Intensity: 0 Pain Scale Used: 0-10 Numeric Aggravating Factor(s): Nothing Alleviating Factor(s): Nothing - Allergy/Home Medications Allergies/Adverse Reactions: Allergies Allergy/AdvReac Type Severity Reaction Status Date / Time Penicillins AdvReac Intermediate GI Upset Verified 03/11/18 14:19 Home Medications: Home Medications Gabapentin [Neurontin] 300 mg PO 03/11/18 [History] Review of Systems All Other Systems Reviewed And Are Negative: Yes Constitutional: Positive: Negative Skin: Positive: Other - ABRASION LEFT LEG, SPFL ULCER LEFT ANKLE Respiratory: Positive: Negative Cardiovascular: Positive: Negative Gastrointestinal: Positive: Negative PMH/Surg Hx/FS Hx/Imm Hx Endocrine History: Diabetes Cardiovascular History: Hypertension Other History Of: Negative For: Anticoagulant Therapy - Surgical History Surgical History: Yes Surgery Procedure, Year, and Place: Three inguinal hernia repairs. Tonsillectomy. Lt FOOT - 5TH TOE AMPUTATED 04/2017. Rt LEG - TIB/FIB FRACTURE - W/ PINS - Family History Known Family History: Positive: Cardiac Disease - Father of [place] at age 52, Diabetes - Social History Alcohol Use: Weekly Alcohol Amount: Pt reports 1-2 bottles of wine. Substance Use Type: None Smoking Status (MU): Former Smoker Type: Cigarettes Have You Smoked in the Last Year: No When Did the Patient Quit Smoking/Using Tobacco: 40 yrs ago - Immunization History Most Recent Influenza Vaccination: 12/23/17 Most Recent Pneumonia Vaccination: last admission Physical Exam Triage Information Reviewed: Yes Appearance: Well-Appearing, No Pain Distress, Well-Nourished, Obese Vital Signs: Initial Vital Signs Temp 97.8 F 03/11/18 14:12 Pulse 72 03/11/18 14:12 Resp 18 03/11/18 14:12 BP 120/84 03/11/18 14:12 Pulse Ox 98 03/11/18 14:12 Vital Signs Reviewed: Yes Eyes: Positive: Conjunctiva Clear ENT: Positive: Hearing grossly normal Neck: Positive: Supple Respiratory: Positive: No respiratory distress, No accessory muscle use Cardiovascular: Positive: Pulses Normal Abdomen Description: Positive: Soft Musculoskeletal: Positive: Edema @ - BILATERAL ANKLE/FEET Neurological: Positive: Alert Psychological: Positive: Age Appropriate Behavior Skin: Positive: Breakdown - SCABBED OVER ABRASION LEFT LOWER LEG ANTEROLATERALLY. 0.5CM SHALLOW ULCERATION LEFT LATERAL ANKLE Course/Dx - Course Course Of Treatment: Ulceration of left lateral ankle appears to be from pressure from the cam boot. The abrasion on his left webster also appears to be from the cam boot. He has the beginnings of some skin breakdown on the lateral part of his foot where there is a bony outgrowth. Advised patient not to wear his cam boot while sleeping and to take it off during the day when he is seated in an attempt to relieve pressure from these areas. Patient will keep his wound care appointment in 4 days as well as his orthopedic appointment. At that time he will be discussing a new boot. No clear signs of active infection right now but will cover with Cipro given patient's history of diabetes. - Diagnoses Provider Diagnosis: Pressure ulcer of left ankle Discharge - Sign-Out/Discharge Documenting (check all that apply): Patient Departure All imaging exams completed and their final reports reviewed: No Studies - Discharge Plan Condition: Stable Disposition: HOME Prescriptions: Ciprofloxacin TAB* [Cipro 500 MG TAB*] 500 mg PO BID #20 tab Patient Education Materials: Diabetic Foot Ulcers (ED), Pressure Injury (ED) Referrals: Marlon Buckley MD [Medical Doctor] - Ramez Akins MD [Primary Care Provider] - If Needed Additional Instructions: TAKE THE ANTIBIOTIC TO COVER FOR POSSIBLE INFECTION. KEEP YOUR WOUND ARE APPT AND ORTHO APPT IN 4 DAYS. GO TO THE ED WITHOUT FAIL IF YOU DEVELOP SPREADING REDNESS OF THE SKIN, PURULENT DRAINAGE, FEVER, INCREASED PAIN OR ANY OTHER CONCERNING SYMPTOMS. FOR NOW I WOULD NOT WEAR THE BOOT WHILE YOU ARE SLEEPING AND I WOULD ALSO TAKE IT OFF IF YOU ARE SEATED FOR ANY PROLONGED PERIOD OF TIME THE WOUNDS SEEM TO BE THE RESULT OF PRESSURE FROM THE BOOT. - Billing Disposition and Condition Condition: STABLE Disposition: Home
== END 2018-03-11 16:17 | disposition home or self-care (01) ==
LOC: UCEAST 13:50
DX: L89.529 Pressure ulcer of left ankle, unspecified stage (principal); S80.812A Abrasion, left lower leg, initial encounter; X58.XXXA Exposure to other specified factors, initial encounter; Y92.9 Unspecified place or not applicable; E11.42 Type 2 diabetes mellitus with diabetic polyneuropathy; Z89.422 Acquired absence of other left toe(s); Z88.0 Allergy status to penicillin; Z87.891 Personal history of nicotine dependence
CPT/HCPCS: 99212; G0463

== ENCOUNTER 2018-04-07 14:48 | Emergency (ER) | payer MEDICARE, OTHER ==
--- OUTSIDE RECORDS SUMMARY | 2018-04-07 15:37 | XMS REPORT | Continuity of Care Document ---
:1950 External Reference #:[id number] Author Name Christie Wilson Care Team Providers Name Role Phone Ramez Akins III, MD Primary Care Physician Unavailable Payers Type Date Identification Numbers Payment Provider Subscriber Policy Number: [id number] Medicare Albin Luevano PayID: [id number] [address] [place] [address] Expires: 2018 Policy Number: [id number] Medicare Albin Luevano PayID: [id number] [address] [place] [address] Policy Number: [id number] [employer] Albin Luevano Group Number: [id number] [address] PayID: [id number] [place] [address] Advance Directives Description No Information Available Problems Date Description Provider Status Onset: 03/03/2011 [...] Active Onset: 12/10/2011 Morbid obesity Caitlyn Jones N.Yolanda Active Onset: 06/30/2012 Ulcer of lower extremity Ramez Akins M.D. Active Onset: 06/30/2012 Peripheral venous insufficiency Rmaez Akins M.D. Active Onset: 05/28/2015 Essential hypertension Ramez Akins M.D. Active Onset: 10/24/2015 Disturbance in sleep behavior Purvi Rod MD Active Onset: 10/24/2015 Hypoxemia Purvi Rod MD Active Onset: 07/16/2016 Atrial fibrillation Ramez Akins M.D. Active Onset: 12/09/2017 Obstructive sleep apnea syndrome Ramez Akins M.D. 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 [employer] Cigarette Use Quit 30 Years Ago Tobacco Use Start: Unknown Former Cigarette Smoker End: Unknown 1 Pack Daily Smoking Status Reviewed: 04/07/18 Former Cigarette Smoker 1 Pack Daily ETOH Use Currently consumes 3 glasses of wine a alcohol day Tobacco Use Start: Unknown Patient is a former End: Unknown smoker Recreational Drug Use Denies Drug Use Exercise Type/Frequency Exercises sporadically PT and occasional visiting nurse service Allergies, Adverse Reactions, Alerts Date Description Reaction Status Severity Comments 01/05/2007 PCN Active GI Pset Medications Medication Date Status Form Strength Qnty SIG Indications Ordering Provider Furosemide 03/21 Active Tablets 20mg 30tab 1 by mouth R60.0 Steffen S. /2017 s every day Garcia, DO FACC Spironolactone 03/21 Active Tablets 25mg 30tab Take 1/2 by R60.0 Steffen S. /2017 s mouth every Garcia, day DO FACC Losartan 08/14 Active Tablets 100-25mg 90tab take 1 tablet Steffen S. Potassium/[place] s by mouth every Garcia, chlorothiazide day DO FACC Xarelto 02/27 Active Tablets 20mg 90tab Take 1 Tablet Ramez E. /2015 s By Mouth Mable, Every Day M.D. Atorvastatin 01/31 Active Tablets 20mg 90tab Take 1 Tablet E78.0 Ramez E. Calcium s By Mouth AT Mable, Bedtime M.D. Metoprolol 04/07 Active Tablets 100mg 90tab Take 1 Tablet Ramez E. Succinate ER /2010 ER 24HR s By Mouth Mable, Daily M.D. Valium 11/27 Active Tablets 5mg 20tab 1 by mouth Ramez E. /2008 s three times a Mable, day as needed M.D. Citalopram 05/17 Active Tablets 20mg 90tab Take 1 Tablet Ramez Jessica Hydrobromide s By Mouth Mable, Daily M.D. Multivitamins Active Tablets 1 PO qd Barken, / MD Mikhail Tamsulosin HCL Active Capsules 0.4mg 1 by mouth Unknown every day 1/2 hour after dinner Aleve Active Capsules 220mg 1 tbalet as needed for pain, approximately twice a week. Gabapentin Active Capsules 100mg 1 capsule Unknown three times daily. Ciprofloxacin Active Tablets 500mg 1 tab by mouth Unknown twice a day (6 more days of Tx) Omeprazole Active Capsules 40mg [address] every day before breakfast Sulfamethoxazol 04/07 Hx Tablets 800-160mg 20tab take one E11.621 Latanya e/Trimethoprim s tablet every MD Jovany DS - 12 hours 04/07 Ceftriaxone 09/29 Hx Solution 2gm 2 grams daily Bryn Sodium Rec iv x 6 wks [facility] [place], 12/19 M.D. Metronidazole 09/28 Hx Tablets 500mg 30tab 1 tab by mouth M86.171 Bryn s every 12 hours DMartita Bronwyn, 12/08 M.D. Amlodipine 03/29 Hx Tablets 5mg 90tab 1 by mouth Steffen S. Besylate s every day Garcia, - DO [facility] 03/21 Amlodipine 11/27 Hx Tablets 10mg 90tab 1 by mouth Steffen S. Besylate /2016 s every day Jose - DO [facility] 03/29 Losartan 08/14 Hx Tablets 100-25mg 30tab 1 by mouth Ramez Lopez Potassium/[place] s every day Mable chlorothiazide - M.DMartita 08/14 Z Pack 08/22 Hx Tablets 250mg 6tabs 2 today 1 Ramez Lopez /2013 every day 4 MableAdrianne M.D. 08/22 Azithromycin 08/22 Hx Tablets 250mg 6tabs two tabs day Ramez Lopez one, one daily Adrianne Akins M.D. 10/10 Tessalon Perles 02/16 Hx Capsules 100mg 30cap 1-2 po tid prn Ramez Lopez Adrianne Avery M.D. 10/10 Metformin HCL 12/09 Hx Tablets 500mg 90tab Take 1 Tablet 250.00 Ramez Lopez s Adrianne Baker M.D. 11/20 Lipitor 03/03 Hx Tablets 20mg 90tab one tab po qhs 272.0 Ramez Lopez Adrianne Avery M.D. 01/31 Losartan 03/03 Hx Tablets 50-12.5mg 90tab take 1 tablet E78.0 Ramez Lopez Potassium/[place] s james Akins chlorothiazide Adrianne Goodman 08/24 Lisinopril/Hydr 10/16 Hx Tablets 20-12.5mg 90tab Take 1 Tablet 272.0 Ramez Lopez ochlorothiazide s Daily Adrianne Akins M.D. 03/03 Z Pack 09/03 Hx Tablets 250mg 6tabs 2 today 1 qd 4 Ramez Lopez Adrianne Iqbal M.D. 03/03 Lisinopril/Hydr 01/24 Hx Tablets 10-12.5mg 30tab 1 po qd Ramez Lopez ochlorothiazide Adrianne Avery M.D. 01/24 Valium 10/16 Hx [...] qd to Ramez Lopez s use with Mable - current MOniel 09/25 Lisinopril/HCT /2008 Z 20/12.5 Zestoretic 07/05 Hx Tablets 20-12.5 90tab po qd Ramez E. Adrianne Avery M.D. 03/03 Lisinopril 07/05 Hx Tablets 10mg 90tab 1 po qd Ramez E. Adrianne Avery M.D. 09/18 Zestoretic Hx Tablets 10/12.5 90tab 1 PO qd Ramez E. Adrianne Avery M.D. 07/05 Lipitor Hx Tablets 20mg 90tab one tab po qhs Ramez E. Adrianne Avery M.D. 01/24 Aspirin Hx Tablets 81mg 1 PO qd- on DR hold on - xarelto 03/31 Toprol XL Hx Tablets 100mg 30tab 1 PO qd Ramez E. ER 24HR Adrianne Avery M.D. 04/07 Lexapro Hx Tablets 10mg 90tab 1 PO qd Barken, s MD Mikhail - 05/17 Valium Hx Tablets 5mg 90tab 1 po tid prn Ramez E. s to fill as Adrianne Akins M.D. 11/27 Prednisone Hx Tablets 10mg 30tab 5tabx 2days,4 Unknown / s [id number] - [id number],2ta 10/10 yu5kilc,1tabxd /2013 ay. Levofloxacin Hx Tablets 750mg 7tabs 1 tab po qd x Ramez E. / 7 days Adrianne Akins M.D. 10/10 Ventolin HFA Hx Aerosol 108(90Bas 1unit 2 puffs po qid Unknown /0000 e) mcg/ac s prn - 10/24 Sulfamethoxazol Hx Tablets 800-160mg 20tab 1 po bid Unknown e/Trimethoprim /0000 s DS - 10/10 Mupirocin Hx Ointment 2% 22gm apply to skin Unknown /0000 lesions twice - daily 10/24 Doxycycline 00/00 Hx Capsules 100mg one tablet Unknown Hyclate /0000 three times a - day (per 09/27 [place]) Immunizations CPT Code Status Date Vaccine Lot # [id number] Given 01/23/2016 Flu Vaccine NOS 24637 Given 05/28/2015 Tdap - Tetanus/Diptheria/Acellular Pertussis [id number] 90669 Given 02/07/2015 Fluzone High Dose 75643 Given 09/25/2014 Pneumococcal Conjugate Vaccine 13 Valent For [id number] Intramuscular Use 62207 Given 01/23/2014 Fluzone High Dose 42918 Given 10/10/2013 Zoster (Zostavax) [id number] Q2039 Given 03/22/2013 Flu Vaccine NOS 19267 Given 03/31/2012 Pneumonia Vaccine [id number] Q2038 Given 02/11/2012 Fluzone Vaccine 77474 Given 03/03/2011 Influenza Virus 3Yrs & Over [id number] 78112 Given 01/24/2010 Influenza Virus 3Yrs & Over [id number] 82484 Given 02/07/2009 Influenza Virus 3Yrs & Over 14842 Given 02/07/2009 Influenza Virus 3Yrs & Over [id number] 30682 Given 01/05/2007 Influenza Virus 3Yrs & Over [id number] 56783 Given 06/02/2005 Td (History By Patient) Vital Signs Date Vital Result Comment 04/07/2018 12:48pm Height 75 inches 6'3" Weight 395.00 lb Heart Rate 92 /min BP Systolic Sitting 109 mmHg BP Diastolic Sitting 66 mmHg O2 % BldC Oximetry 99 % BMI (Body Mass Index) 49.4 kg/m2 03/23/2018 3:21pm Height 75 inches 6'3" Weight 395.00 lb Heart Rate 86 /min BP Systolic Sitting 114 mmHg BP Diastolic Sitting 90 mmHg Body Temperature 97.3 F Pain Level 6 Left ankle O2 % BldC Oximetry 96 % BMI (Body Mass Index) 49.4 kg/m2 03/22/2018 2:46pm Height 75 inches 6'3" Heart Rate 84 /min Respiratory Rate 20 /min Body Temperature 98.3 F Pain Level 6 03/21/2018 2:11pm Height 75 inches 6'3" Weight 385.00 lb pt weight himself at home Heart Rate 63 /min BP Systolic Sitting 145 mmHg LA lg cuff BP Diastolic Sitting 78 mmHg LA lg cuff Respiratory Rate 18 /min O2 % BldC Oximetry 97 % BMI (Body Mass Index) 48.1 kg/m2 Ejection Fraction 60-65% 12/22/17 echo [facility] [place] [facility] 01/26/2018 3:04pm Height 75 inches 6'3" Heart Rate 88 /min BP Systolic 128 mmHg BP Diastolic 90 mmHg 01/10/2018 10:53am Height 75 inches 6'3" Weight 385.00 lb Heart Rate 74 /min Respiratory Rate 18 /min Body Temperature 97.4 F Pain Level 0 BMI (Body Mass Index) 48.1 kg/m2 12/20/2017 11:04am Height 75 inches 6'3" Weight 385.00 lb Heart Rate 88 /min BP Systolic Sitting 100 mmHg BP Diastolic Sitting 68 mmHg Respiratory Rate 14 /min O2 % BldC Oximetry 98 % BMI (Body Mass Index) 48.1 kg/m2 12/09/2017 4:20pm Height 75 inches 6'3" Weight 386.00 lb Heart Rate 96 /min BP Systolic Sitting 128 mmHg BP Diastolic Sitting 82 mmHg O2 % BldC Oximetry 95 % BMI (Body Mass Index) 48.2 kg/m2 09/28/2017 10:33am Height 75 inches 6'3" Weight 385.00 lb Heart Rate 68 /min BP Systolic Sitting 112 mmHg BP Diastolic Sitting 80 mmHg Respiratory Rate 16 /min Body Temperature 98.1 F BMI (Body Mass Index) 48.1 kg/m2 03/29/2017 3:38pm Height 75 inches 6'3" Weight 384.75 lb [...] Ejection Fraction 55% date 03/23/2016 ECHO 11/12/2016 3:35pm Height 74.5 inches 6'2.50" Weight 400.50 lb with shoes Heart Rate 74 /min BP Systolic Sitting 160 mmHg Lue lrg cuff BP Diastolic Sitting 108 mmHg Lue lrg cuff BP Systolic Standing 156 mmHg Lue lrg cuff BP Diastolic Standing 104 mmHg Lue lrg cuff Respiratory Rate 20 /min BMI (Body Mass Index) 50.7 kg/m2 Ejection Fraction 55% 03/23/2016-echo 08/10/2016 4:05pm Heart Rate 96 /min BP Systolic 160 mmHg manual BP Diastolic 120 mmHg manual BP Systolic Sitting 189 mmHg his machine BP Diastolic Sitting 134 mmHg his machine 07/16/2016 3:52pm Height 74.50 inches 6'2.50" Weight 391.25 lb Heart Rate 78 /min BP Systolic 140 mmHg BP Diastolic 90 mmHg Body Temperature 98.6 F O2 % BldC Oximetry 97 % BMI (Body Mass Index) 49.6 kg/m2 07/10/2016 3:42pm Height 75 inches 6'3" Weight 394.00 lb Heart Rate 88 /min BP Systolic Sitting 168 mmHg Ra lrg cuff BP Diastolic Sitting 108 mmHg Ra lrg cuff BP Systolic Standing 168 mmHg Ra lrg cuff BP Diastolic Standing 108 mmHg Ra lrg cuff BMI (Body Mass Index) 49.2 kg/m2 03/31/2016 3:53pm Height 75 inches 6'3" Weight 400.25 lb [...] BMI (Body Mass Index) 50.0 kg/m2 03/04/2016 4:02pm Weight 423.00 lb Heart Rate 89 /min BP Systolic Sitting 152 mmHg BP Diastolic Sitting 90 mmHg Body Temperature 98.0 F O2 % BldC Oximetry 94 % 02/26/2016 1:26pm Weight 416.00 lb Heart Rate 93 /min BP Systolic Sitting 196 mmHg BP Diastolic Sitting 126 mmHg O2 % BldC Oximetry 95 % 10/24/2015 3:12pm Height 74 inches 6'2" Weight 408.50 lb Heart Rate 110 /min BP Systolic 162 mmHg BP Diastolic 100 mmHg Respiratory Rate 16 /min O2 % BldC Oximetry 96 % BMI (Body Mass Index) 52.4 kg/m2 Neck Circumference in inches 22 05/28/2015 2:57pm Height 74 inches 6'2" Weight 401.00 lb Heart Rate 64 /min BP Systolic 164 mmHg 148/100 BP Diastolic 90 mmHg 148/100 Body Temperature 97.5 F O2 % BldC Oximetry 95 % BMI (Body Mass Index) 51.5 kg/m2 11/20/2014 3:17pm Weight 384.00 lb Heart Rate 66 /min BP Systolic Sitting 138 mmHg BP Diastolic Sitting 84 mmHg Body Temperature 98.5 F O2 % BldC Oximetry 98 % 09/25/2014 3:59pm Weight 327.00 lb Heart Rate 100 /min BP Systolic Sitting 148 mmHg BP Diastolic Sitting 90 mmHg O2 % BldC Oximetry 97 % 10/24/2013 2:02pm Weight 397.00 lb Heart Rate 80 /min BP Systolic Sitting 154 mmHg BP Diastolic Sitting 102 mmHg Body Temperature 97.5 F 10/10/2013 3:19pm Height 74 inches 6'2" Weight 382.50 lb Heart Rate 64 /min BP Systolic Sitting 150 mmHg BP Diastolic Sitting 72 mmHg BMI (Body Mass Index) 49.1 kg/m2 02/06/2013 3:39pm Weight 384.00 lb plus foot brace Heart Rate 70 /min BP Systolic Sitting 142 mmHg BP Diastolic Sitting 86 mmHg Body Temperature 100.7 F O2 % BldC Oximetry 95 % 06/30/2012 4:09pm Height 74 inches 6'2" Weight 363.00 lb Heart Rate 72 /min BP Systolic Sitting 136 mmHg BP Diastolic Sitting 74 mmHg BMI (Body Mass Index) 46.6 kg/m2 03/31/2012 1:07pm Height 74 inches 6'2" Weight 378.00 lb Heart Rate 60 /min BP Systolic Sitting 130 mmHg BP Diastolic Sitting 84 mmHg BMI (Body Mass Index) 48.5 kg/m2 12/10/2011 3:38pm Height 74 inches 6'2" Heart Rate 84 /min BP Systolic Sitting 130 mmHg BP Diastolic Sitting 80 mmHg 11/19/2011 3:48pm Height 74 inches 6'2" Weight 421.00 lb Heart Rate 80 /min BP Systolic Sitting 130 mmHg BP Diastolic Sitting 82 mmHg Body Temperature 97.5 F BMI (Body Mass Index) 54.0 kg/m2 03/03/2011 4:07pm Height 73.75 inches 6'1.75" Weight 403.25 lb Heart Rate 88 /min BP Systolic Sitting 120 mmHg BP Diastolic Sitting 78 mmHg BMI (Body Mass Index) 52.1 kg/m2 01/24/2010 12:01pm Weight 380.00 lb Heart Rate 76 /min BP Systolic Sitting 138 mmHg BP Diastolic Sitting 82 mmHg Body Temperature 97.9 F 10/08/2008 2:14pm Height 77 inches 6'5" Weight 310.00 lb Heart Rate 72 /min BP Systolic Sitting 110 mmHg BP Diastolic Sitting 74 mmHg BMI (Body Mass Index) 36.8 kg/m2 08/07/2008 3:11pm Height 77 inches 6'5" Weight 297.00 lb down 13# Heart Rate 88 /min BP Systolic Sitting 110 mmHg BP Diastolic Sitting 60 mmHg BMI (Body Mass Index) 35.2 kg/m2 04/24/2008 3:13pm Height 77 inches 6'5" Weight 310.00 lb with shoes Heart Rate 88 /min BP Systolic Sitting 116 mmHg BP Diastolic Sitting 80 mmHg BMI (Body Mass Index) 36.8 kg/m2 12/29/2007 2:40pm Height 77 inches 6'5" Heart Rate 88 /min BP Systolic Sitting 132 mmHg BP Diastolic Sitting 80 mmHg 12/06/2007 11:11am Height 77 inches 6'5" Weight 313.00 lb with metal foot brace Heart Rate 68 /min BP Systolic Sitting 146 mmHg BP Diastolic Sitting 94 mmHg BMI (Body Mass Index) 37.1 kg/m2 11/07/2007 2:45pm Height 77 inches 6'5" Heart Rate 76 /min BP Systolic Sitting 130 mmHg BP Diastolic Sitting 80 mmHg 08/18/2007 4:07pm Height 77 inches 6'5" Weight 288.00 lb lost 5# since last visit Heart Rate 92 /min BP Systolic Sitting 134 mmHg BP Diastolic Sitting 86 mmHg BMI (Body Mass Index) 34.1 kg/m2 07/06/2007 4:08pm Height 77 inches 6'5" Weight 293.00 lb Heart Rate 88 /min BP Systolic Sitting 158 mmHg BP Diastolic Sitting 96 mmHg BMI (Body Mass Index) 34.7 kg/m2 01/05/2007 3:37pm Height 77 inches 6'5" Weight 279.00 lb Heart Rate 84 /min BP Systolic Sitting 140 mmHg BP Diastolic Sitting 76 mmHg BMI (Body Mass Index) 33.1 kg/m2 Results Test Date Facility Test Result H/L Range Note Laboratory test 04/07/2018 [facility] Hemoglobin A1c 5.8 5-7 finding Laboratory test 12/21/2017 [facility] Troponin-I (TnI) 0.02 ng/ mL <0.[address] [place] [address] [phone] Comp Metabolic 12/21/2017 [facility] Sodium 135 mmol/L N 135- [address] [place] [address] [phone] Potassium 4.0 mmol/L N 3.5-5.0 Chloride 103 mmol/L N 101-111 Co2 Carbon Dioxide 26 mmol/L N 22-32 Anion Gap 6 mmol/L N 2-11 Glucose 107 mg/dL High 70-100 Blood Urea Nitrogen 46 mg/dL High 6-24 Creatinine 0.87 mg/dL N 0.67-1.17 BUN/Creatinine Ratio 52.9 High 8-20 Calcium 8.6 mg/dL N 8.6-10.3 Total Protein 6.0 g/dL Low 6.4-8.9 Albumin 3.1 g/dL Low 3.2-5.2 Globulin 2.9 g/dL N 2-4 Albumin/Globulin Ratio 1.1 N 1-3 Total Bilirubin 0.60 mg/dL N 0.2-1.0 Alkaline Phosphatase 89 U/L N 34-104 Alt 15 U/L N 7-52 Ast 23 U/L N 13-39 Egfr Non- 87.0 >60 Egfr 105.3 >60 1 Inr/Protime 12/21/2017 [facility] Inr 1.03 High 0.77-1.02 [address] [place] [address] [phone] Urine Culture And 12/21/2017 [facility] Urine SEE RESULT [address] [place] [address] [phone] Laboratory test 12/21/2017 [facility] Lactic Acid 1.6 mmol/L N 0.5-2.0 3 [place] [address] [phone] Urinalysis Profile 12/21/2017 [facility] Urine Color Yellow [address] [place] [address] [phone] Urine Appearance Clear Urine Specific [place] 1.016 N 1.010-1.030 Urine pH 6.0 N 5-9 Urine Urobilinogen Negative Negative Urine Ketones Negative Negative Urine Protein Negative Negative Urine Leukocytes Trace Abnormal Negative Urine Blood 1+ Abnormal Negative Urine Nitrite Negative Negative Urine Bilirubin Negative Negative Urine Glucose Negative Negative Urine White Blood Cell Trace(0-5/hpf) Absent Urine Red Blood Cell Absent Absent Urine Bacteria Absent Absent CBC Auto 12/21/2017 [facility] White Blood 16.6 10^3/uL High 3.5-10.[address] [place] [address] [phone] Red Blood Count 2.70 10^6/uL Low 4.00-5.40 Hemoglobin 9.5 g/dL Low 14.0-18.0 Hematocrit 28 % Low 42-52 Mean Corpuscular Volume 104 fL High 80-94 Mean Corpuscular Hemoglobin 35 pg High 27-31 Mean Corpuscular HGB Conc 34 g/dL N 31-36 Red Cell Distribution Width 15 % N 10.5-15 Platelet Count 179 10^3/uL N 150-450 Mean Platelet Volume 8.6 um3 N 7.4-10.4 Abs Neutrophils 12.9 10^3/uL High 1.5-7.7 Iron & Iron Binding 12/21/2017 [facility] Iron 56 g/dL N 50- [address] [place] [address] [phone] Unsaturated Iron Binding 298 g/dL Total Iron Binding Capacity 354 g/dL N 250-450 Transferrin 253 mg/dL N 203-362 % Iron Saturation 16 % N 15-55 Laboratory test 12/21/2017 [facility] Magnesium 1.9 mg/dL N 1.9-2.[address] [place] [address] [phone] C Reactive Protein 15.73 mg/L High <8.01 TSH (Thyroid Stim Horm) 6.97 mcIU/mL High 0.34-5.60 Ferritin 90.7 ng/mL N 24-336 Vitamin B12 348 pg/mL N 180-914 4 Laboratory test 12/21/2017 [facility] Pathologist Review (SEE NOTE) [address] [place] [address] [phone] Blood Culture SEE RESULT BELOW 6 Manual Differential 12/21/2017 [facility] Immature 2 % N 0-[address] [place] [address] [phone] Neutrophil % 78 % N 38-83 Band % 2 % N 0-8 Lymphocytes % 8 % Low 25-47 Monocytes % 11 % High 0-7 Eosinophils % 0 % N 0-6 Basophil % 1 % N 0-2 Abs Neutrophils 12.9 10^3/uL High 1.5-7.7 Abs Lymphocytes 1.3 10^3/uL N 1.0-4.8 Abs Monocytes 1.8 10^3/uL High 0-0.8 Abs Eosinophils 0 10^3/uL N 0-0.6 Abs Basophils 0.2 10^3/uL N 0-0.2 Macrocytosis 1+ Laboratory test 12/09/2017 [facility] Hemoglobin A1c 5.1 5-7 finding Laboratory test 12/09/2017 [facility] Epifix 3.5X3.5 SEE RESULTS 7, [address] Mesh [place]O <[place] [address] NOTE> [phone] Laboratory test 11/26/2017 [facility] Point of Care 108 mg/dL High 70-100 [address] Glucose [place], [place] [id number] [phone] Laboratory test 11/26/2017 [facility] Point of Care 134 mg/dL High 70-100 [address] [place] [address] [phone] Laboratory test 11/26/2017 [facility] Point of Care 124 mg/dL High 70-100 [address] [place] [address] [phone] Laboratory test 11/25/2017 [facility] Point of Care 108 mg/dL High 70-100 [address] Gl[place], [place] [id number] [phone] Laboratory test 11/25/2017 [facility] Point of Care 130 mg/dL High 70-100 [address] [place] [address] [phone] Laboratory test 11/23/2017 [facility] Point of Care 123 mg/dL High 70-100 [address] [place] [address] [phone] Laboratory test 11/23/2017 [facility] Point of Care 152 mg/dL High 70-100 [address] [place] [address] [phone] Laboratory test 11/18/2017 [facility] Point of Care 112 mg/dL High 70-100 [address] [place] [address] [phone] Laboratory test 11/18/2017 [facility] Point of Care 135 mg/dL High 70-100 [address] [place] [address] [phone] Laboratory test 11/17/2017 [facility] Point of Care 99 mg/dL N 70-100 [address] [place], [place] [address] [phone] Laboratory test 11/17/2017 [facility] Point of Care 142 mg/dL High 70-100 [address] [place] [address] [phone] Laboratory test 11/16/2017 [facility] Point of Care 112 mg/dL High 70-100 [address] [place] [address] [phone] Laboratory test 11/16/2017 [facility] Point of Care 154 mg/dL High 70-100 [address] [place], [place] [address] [phone] Laboratory test 11/15/2017 [facility] Point of Care 115 mg/dL High 70-100 [address] [place] [address] [phone] Laboratory test 11/15/2017 [facility] Point of Care 117 mg/dL High 70-100 [address] [place] [address] [phone] Laboratory test 11/12/2017 [facility] Point of Care 124 mg/dL High 70-100 [address] [place], [place] [id number] [phone] Laboratory test 11/12/2017 [facility] Point of Care 143 mg/dL High 70-100 [address] [place] [address] [phone] Laboratory test 11/11/2017 [facility] Point of Care 124 mg/dL High 70-100 [address] [place] [address] [phone] Laboratory test 11/11/2017 [facility] Point of Care 142 mg/dL High 70-100 [address] [place], [place] [address] [phone] Laboratory test 11/10/2017 [facility] Point of Care 109 mg/dL High 70-100 [address] [place], [place] [address] [phone] Laboratory test 11/10/2017 [facility] Point of Care 159 mg/dL High 70-100 [address] [place] [address] [phone] Laboratory test 11/09/2017 [facility] Point of Care 109 mg/dL High 70-100 [address] [place] [address] [phone] Laboratory test 11/09/2017 [facility] Point of Care 135 mg/dL High 70-100 [address] [place] [address] [phone] CBC Auto Diff 11/08/2017 [facility] White Blood 6.8 10^3/uL N 3.5-10.[address] [place] [address] [phone] Red Blood Count 3.93 10^6/uL Low 4.00-5.40 Hemoglobin 13.6 g/dL Low 14.0-18.0 Hematocrit 40 % Low 42-52 Mean Corpuscular Volume 103 fL High 80-94 Mean Corpuscular Hemoglobin 35 pg High 27-31 Mean Corpuscular HGB Conc 34 g/dL N 31-36 Red Cell Distribution Width 15 % N 10.5-15 Platelet Count 155 10^3/uL N 150-450 Mean Platelet Volume 9.5 um3 N 7.4-10.4 Abs Neutrophils 4.5 10^3/uL N 1.5-7.7 Abs Lymphocytes 1.0 10^3/uL N 1.0-4.8 Abs Monocytes 1.0 10^3/uL High 0-0.8 Abs Eosinophils 0.2 10^3/uL N 0-0.6 Abs Basophils 0.1 10^3/uL N 0-0.2 Abs Nucleated RBC 0 10^3/uL Granulocyte % 66.5 % N 38-83 Lymphocyte % 14.9 % Low 25-47 Monocyte % 14.1 % High 0-7 Eosinophil % 3.5 % N 0-6 Basophil % 1.0 % N 0-2 Nucleated Red Blood Cells % 0.3 Comp Metabolic Panel 11/08/2017 [facility] Sodium 139 mmol/L N 135-[address] [place] [address] [phone] Potassium 3.9 mmol/L N 3.5-5.0 Chloride 101 mmol/L N 101-111 Co2 Carbon Dioxide 28 mmol/L N 22-32 Anion Gap 10 mmol/L N 2-11 Glucose 91 mg/dL N 70-100 Blood Urea Nitrogen 17 mg/dL N 6-24 Creatinine 0.91 mg/dL N 0.67-1.17 BUN/Creatinine Ratio 18.7 N 8-20 Calcium 8.6 mg/dL N 8.6-10.3 Total Protein 6.7 g/dL N 6.4-8.9 Albumin 3.4 g/dL N 3.2-5.2 Globulin 3.3 g/dL N 2-4 Albumin/Globulin Ratio 1.0 N 1-3 Total Bilirubin 0.40 mg/dL N 0.2-1.0 Alkaline Phosphatase 120 U/L High 34-104 Alt 22 U/L N 7-52 Ast 35 U/L N 13-39 Egfr Non- 82.6 >60 Egfr 100.0 >60 32 Laboratory test 11/08/2017 [facility] C Reactive 7.49 mg/L N < 8.[address] [place] [address] [phone] Laboratory test 11/08/2017 [facility] Point of Care 113 mg/dL High 70-100 [address] [place] [address] [phone] Laboratory test 11/08/2017 [facility] Point of Care 159 mg/dL High 70-100 [address] [place] [address] [phone] Laboratory test 11/05/2017 [facility] Point of Care 121 mg/dL High 70-100 [address] [place] [address] [phone] Laboratory test 11/05/2017 [facility] Point of Care 121 mg/dL High 70-100 [address] [place] [address] [phone] Laboratory test 11/04/2017 [facility] Point of Care 113 mg/dL High 70-100 [address] Gl[place], [place] [id number] [phone] Laboratory test 11/04/2017 [facility] Point of Care 149 mg/dL High 70-100 [address] [place] [address] [phone] Laboratory test 11/03/2017 [facility] Point of Care 98 mg/dL N 70-100 [address] Gl[place], [place] [id number] [phone] Laboratory test 11/03/2017 [facility] Point of Care 158 mg/dL High 70-100 [address] [place] [address] [phone] Laboratory test 11/02/2017 [facility] Point of Care 108 mg/dL High 70-100 [address] Gl[place], [place] [id number] [phone] Laboratory test 11/02/2017 [facility] Point of Care 153 mg/dL High 70-100 [address] Glucose [place], [place] [id number] [phone] Comp Metabolic 11/01/2017 [facility] Sodium 137 N 135-[address] mmol/[place] [address] [phone] Potassium 4.0 mmol/L N 3.5-5.0 Chloride 100 mmol/L Low 101-111 Co2 Carbon Dioxide 31 mmol/L N 22-32 Anion Gap 6 mmol/L N 2-11 Glucose 103 mg/dL High 70-100 Blood Urea Nitrogen 12 mg/dL N 6-24 Creatinine 0.91 mg/dL N 0.67-1.17 BUN/Creatinine Ratio 13.2 N 8-20 Calcium 8.6 mg/dL N 8.6-10.3 Total Protein 6.9 g/dL N 6.4-8.9 Albumin 3.5 g/dL N 3.2-5.2 Globulin 3.4 g/dL N 2-4 Albumin/Globulin Ratio 1.0 N 1-3 Total Bilirubin 0.80 mg/dL N 0.2-1.0 Alkaline Phosphatase 127 U/L High 34-104 Alt 21 U/L N 7-52 Ast 29 U/L N 13-39 Egfr Non- 82.6 >60 Egfr 100.0 >60 43 Laboratory test 11/01/2017 [facility] C Reactive 22.08 mg/L High <8.[address] [place] [address] [phone] CBC Auto Diff 11/01/2017 [facility] White Blood 7.8 N 3.5- 10.[address] Count 10^3/[place] [address] [phone] Red Blood Count 4.16 10^6/uL N 4.00-5.40 Hemoglobin 14.1 g/dL N 14.0-18.0 Hematocrit 42 % N 42-52 Mean Corpuscular Volume 101 fL High 80-94 Mean Corpuscular Hemoglobin 34 pg High 27-31 Mean Corpuscular HGB Conc 34 g/dL N 31-36 Red Cell Distribution Width 16 % High 10.5-15 Platelet Count 166 10^3/uL N 150-450 Mean Platelet Volume 8.8 um3 N 7.4-10.4 Abs Neutrophils 5.4 10^3/uL N 1.5-7.7 Abs Lymphocytes 1.1 10^3/uL N 1.0-4.8 Abs Monocytes 1.1 10^3/uL High 0-0.8 Abs Eosinophils 0.3 10^3/uL N 0-0.6 Abs Basophils 0.1 10^3/uL N 0-0.2 Abs Nucleated RBC 0 10^3/uL Granulocyte % 68.7 % N 38-83 Lymphocyte % 13.6 % Low 25-47 Monocyte % 13.7 % High 0-7 Eosinophil % 3.2 % N 0-6 Basophil % 0.8 % N 0-2 Nucleated Red Blood Cells % 0.1 Laboratory test 11/01/2017 [facility] Point of 94 mg/dL N 70- 100 [address] [place] [address] [phone] Laboratory test 11/01/2017 [facility] Point of 154 mg/dL High 70-100 [address] [place] [address] [phone] Laboratory test 10/28/2017 [facility] Point of 99 mg/dL N 70- 100 [address] [place] [address] [phone] Laboratory test 10/28/2017 [facility] Point of 124 mg/dL High 70-100 [address] [place] [address] [phone] Laboratory test 10/27/2017 [facility] Point of 127 mg/dL High 70-100 [address] [place] [address] [phone] Laboratory test 10/27/2017 [facility] Point of 97 mg/dL N 70- 100 49 finding [address] [facility] [address] [phone] Laboratory test 10/26/2017 [facility] Point of 124 mg/dL High 70-100 50 finding [address] [facility] [address] [phone] Laboratory test 10/26/2017 [facility] Point of 125 mg/dL High 70-100 51 finding [address] [facility] [address] [phone] Laboratory test 10/26/2017 [facility] Point of 109 mg/dL High 70-100 52 finding [address] [facility] [address] [phone] CBC Auto Diff 10/25/2017 [facility] White Blood 6.7 N 3.5- 10.[address] Count 10^3/[place] [address] [phone] Red Blood Count 4.32 10^6/uL N 4.00-5.40 Hemoglobin 14.6 g/dL N 14.0-18.0 Hematocrit 44 % N 42-52 Mean Corpuscular Volume 101 fL High 80-94 Mean Corpuscular Hemoglobin 34 pg High 27-31 Mean Corpuscular HGB Conc 33 g/dL N 31-36 Red Cell Distribution Width 16 % High 10.5-15 Platelet Count 165 10^3/uL N 150-450 Mean Platelet Volume 8.7 um3 N 7.4-10.4 Abs Neutrophils 4.3 10^3/uL N 1.5-7.7 Abs Lymphocytes 1.2 10^3/uL N 1.0-4.8 Abs Monocytes 0.9 10^3/uL High 0-0.8 Abs Eosinophils 0.2 10^3/uL N 0-0.6 Abs Basophils 0.1 10^3/uL N 0-0.2 Abs Nucleated RBC 0 10^3/uL Granulocyte % 64.5 % N 38-83 Lymphocyte % 17.5 % Low 25-47 Monocyte % 13.6 % High 0-7 Eosinophil % 3.2 % N 0-6 Basophil % 1.2 % N 0-2 Nucleated Red Blood Cells % 0.1 Comp Metabolic Panel 10/25/2017 [facility] Sodium 139 mmol/L N 135-[address] [place] [address] [phone] Potassium 3.9 mmol/L N 3.5-5.0 Chloride 103 mmol/L N 101-111 Co2 Carbon Dioxide 29 mmol/L N 22-32 Anion Gap 7 mmol/L N 2-11 Glucose 109 mg/dL High 70-100 Blood Urea Nitrogen 13 mg/dL N 6-24 Creatinine 0.94 mg/dL N 0.67-1.17 BUN/Creatinine Ratio 13.8 N 8-20 Calcium 9.1 mg/dL N 8.6-10.3 Total Protein 6.8 g/dL N 6.4-8.9 Albumin 3.4 g/dL N 3.2-5.2 Globulin 3.4 g/dL N 2-4 Albumin/Globulin Ratio 1.0 N 1-3 Total Bilirubin 0.70 mg/dL N 0.2-1.0 Alkaline Phosphatase 101 U/L N 34-104 Alt 24 U/L N 7-52 Ast 31 U/L N 13-39 Egfr Non- 79.6 >60 Egfr 96.3 >60 53 Laboratory test 10/25/2017 [facility] C Reactive 4.74 mg/L N < 8.[address] [place] [address] [phone] Laboratory test 10/25/2017 [facility] Point of Care 118 mg/dL High 70-100 [address] [place] [address] [phone] Laboratory test 10/25/2017 [facility] Point of Care 117 mg/dL High 70-100 [address] [place] [address] [phone] Laboratory test 10/25/2017 [facility] Point of Care 99 mg/dL N 70-100 [address] [place] [address] [phone] Laboratory test 10/22/2017 [facility] Point of Care 101 mg/dL High 70-100 [address] [place] [address] [phone] Laboratory test 10/22/2017 [facility] Point of Care 132 mg/dL High 70-100 [address] [place] [address] [phone] Laboratory test 10/21/2017 [facility] Point of Care 111 mg/dL High 70-100 [address] [place] [address] [phone] Laboratory test 10/21/2017 [facility] Point of Care 180 mg/dL High 70-100 [address] [place] [address] [phone] Laboratory test 10/20/2017 [facility] Point of Care 119 mg/dL High 70-100 [address] [place] [address] [phone] Laboratory test 10/20/2017 [facility] Point of Care 115 mg/dL High 70-100 [address] [place] [address] [phone] Laboratory test 10/19/2017 [facility] Point of Care 123 mg/dL High 70-100 [address] [place] [address] [phone] Laboratory test 10/19/2017 [facility] Point of Care 134 mg/dL High 70-100 [address] [place] [address] [phone] CBC Auto Diff 10/18/2017 [facility] White Blood 6.5 N 3.5- 10.[address] Count 10^3/[place] [address] [phone] Red Blood Count 4.23 10^6/uL N 4.00-5.40 Hemoglobin 14.3 g/dL N 14.0-18.0 Hematocrit 42 % N 42-52 Mean Corpuscular Volume 100 fL High 80-94 Mean Corpuscular Hemoglobin 34 pg High 27-31 Mean Corpuscular HGB Conc 34 g/dL N 31-36 Red Cell Distribution Width 16 % High 10.5-15 Platelet Count 165 10^3/uL N 150-450 Mean Platelet Volume 8.8 um3 N 7.4-10.4 Abs Neutrophils 4.4 10^3/uL N 1.5-7.7 Abs Lymphocytes 0.9 10^3/uL Low 1.0-4.8 Abs Monocytes 1.0 10^3/uL High 0-0.8 Abs Eosinophils 0.2 10^3/uL N 0-0.6 Abs Basophils 0 10^3/uL N 0-0.2 Abs Nucleated RBC 0 10^3/uL Granulocyte % 67.6 % N 38-83 Lymphocyte % 14.0 % Low 25-47 Monocyte % 14.7 % High 0-7 Eosinophil % 3.0 % N 0-6 Basophil % 0.7 % N 0-2 Nucleated Red Blood Cells % 0.1 Comp Metabolic Panel 10/18/2017 [facility] Sodium 138 mmol/L N 135-[address] [place] [address] [phone] Potassium 3.7 mmol/L N 3.5-5.0 Chloride 102 mmol/L N 101-111 Co2 Carbon Dioxide 31 mmol/L N 22-32 Anion Gap 5 mmol/L N 2-11 Glucose 102 mg/dL High 70-100 Blood Urea Nitrogen 16 mg/dL N 6-24 Creatinine 0.99 mg/dL N 0.67-1.17 BUN/Creatinine Ratio 16.2 N 8-20 Calcium 8.8 mg/dL N 8.6-10.3 Total Protein 6.5 g/dL N 6.4-8.9 Albumin 3.3 g/dL N 3.2-5.2 Globulin 3.2 g/dL N 2-4 Albumin/Globulin Ratio 1.0 N 1-3 Total Bilirubin 0.60 mg/dL N 0.2-1.0 Alkaline Phosphatase 121 U/L High 34-104 Alt 49 U/L N 7-52 Ast 52 U/L High 13-39 Egfr Non- 75.0 >60 Egfr 90.7 >60 65 Laboratory test 10/18/2017 [facility] C Reactive 11.79 mg/L High <8.[address] [place] [address] [phone] Laboratory test 10/18/2017 [facility] Point of Care 117 mg/dL High 70-100 [address] [place] [address] [phone] Laboratory test 10/18/2017 [facility] Point of Care 153 mg/dL High 70-100 [address] [place] [address] [phone] Laboratory test 10/15/2017 [facility] Point of Care 100 mg/dL N 70-100 [address] [place] [address] [phone] Laboratory test 10/15/2017 [facility] Point of Care 115 mg/dL High 70-100 [address] [place] [address] [phone] Laboratory test 10/14/2017 [facility] Point of Care 144 mg/dL High 70-100 [address] [place] [address] [phone] Laboratory test 10/14/2017 [facility] Point of Care 117 mg/dL High 70-100 [address] [place] [address] [phone] Laboratory test 10/14/2017 [facility] Point of Care 93 mg/dL N 70-100 [address] [place] [address] [phone] Laboratory test 10/12/2017 [facility] Point of Care 169 mg/dL High 70-100 [address] [place] [address] [phone] Laboratory test 10/12/2017 [facility] Point of Care 135 mg/dL High 70-100 [address] [place] [address] [phone] Laboratory test 10/12/2017 [facility] Point of Care 107 mg/dL High 70-100 [address] [place] [address] [phone] CBC Auto Diff 10/11/2017 [facility] White Blood 6.9 N 3.5- 10.[address] Count 10^3/[place] [address] [phone] Red Blood Count 4.21 10^6/uL N 4.00-5.40 Hemoglobin 14.2 g/dL N 14.0-18.0 Hematocrit 42 % N 42-52 Mean Corpuscular Volume 101 fL High 80-94 Mean Corpuscular Hemoglobin 34 pg High 27-31 Mean Corpuscular HGB Conc 34 g/dL N 31-36 Red Cell Distribution Width 16 % High 10.5-15 Platelet Count 167 10^3/uL N 150-450 Mean Platelet Volume 8.4 um3 N 7.4-10.4 Abs Neutrophils 4.5 10^3/uL N 1.5-7.7 Abs Lymphocytes 1.1 10^3/uL N 1.0-4.8 Abs Monocytes 0.9 10^3/uL High 0-0.8 Abs Eosinophils 0.2 10^3/uL N 0-0.6 Abs Basophils 0.1 10^3/uL N 0-0.2 Abs Nucleated RBC 0 10^3/uL Granulocyte % 66.1 % N 38-83 Lymphocyte % 16.1 % Low 25-47 Monocyte % 13.2 % High 0-7 Eosinophil % 3.6 % N 0-6 Basophil % 1.0 % N 0-2 Nucleated Red Blood Cells % 0.1 Comp Metabolic Panel 10/11/2017 [facility] Sodium 138 mmol/L N 135-145 [address] [place] [address] [phone] Potassium 4.0 mmol/L N 3.5-5.0 Chloride 104 mmol/L N 101-111 Co2 Carbon Dioxide 28 mmol/L N 22-32 Anion Gap 6 mmol/L N 2-11 Glucose 100 mg/dL N 70-100 Blood Urea Nitrogen 14 mg/dL N 6-24 Creatinine 0.98 mg/dL N 0.67-1.17 BUN/Creatinine Ratio 14.3 N 8-20 Calcium 9.1 mg/dL N 8.6-10.3 Total Protein 6.7 g/dL N 6.4-8.9 Albumin 3.4 g/dL N 3.2-5.2 Globulin 3.3 g/dL N 2-4 Albumin/Globulin Ratio 1.0 N 1-3 Total Bilirubin 0.60 mg/dL N 0.2-1.0 Alkaline Phosphatase 104 U/L N 34-104 Alt 57 U/L High 7-52 Ast 64 U/L High 13-39 Egfr Non- 75.8 >60 Egfr 91.8 >60 76 Laboratory test 10/11/2017 [facility] C Reactive 7.43 mg/L N < 8.[address] [place] [address] [phone] Laboratory test 10/11/2017 [facility] Point of Care 119 mg/dL High 70-100 [address] [place] [address] [phone] Laboratory test 10/11/2017 [facility] Point of Care 131 mg/dL High 70-100 [address] [place] [address] [phone] CBC Auto Diff 10/04/2017 [facility] White Blood 5.9 N 3.5- 10.[address] Count 10^3/[place] [address] [phone] Red Blood Count 4.27 10^6/uL N 4.00-5.40 Hemoglobin 14.6 g/dL N 14.0-18.0 Hematocrit 43 % N 42-52 Mean Corpuscular Volume 100 fL High 80-94 Mean Corpuscular Hemoglobin 34 pg High 27-31 Mean Corpuscular HGB Conc 34 g/dL N 31-36 Red Cell Distribution Width 16 % High 10.5-15 Platelet Count 157 10^3/uL N 150-450 Mean Platelet Volume 8.7 um3 N 7.4-10.4 Abs Neutrophils 4.2 10^3/uL N 1.5-7.7 Abs Lymphocytes 0.6 10^3/uL Low 1.0-4.8 Abs Monocytes 0.6 10^3/uL N 0-0.8 Abs Eosinophils 0.5 10^3/uL N 0-0.6 Abs Basophils 0.1 10^3/uL N 0-0.2 Abs Nucleated RBC 0 10^3/uL Granulocyte % 70.7 % N 38-83 Lymphocyte % 10.2 % Low 25-47 Monocyte % 10.4 % High 0-7 Eosinophil % 7.7 % High 0-6 Basophil % 1.0 % N 0-2 Nucleated Red Blood Cells % 0 Comp Metabolic Panel 10/04/2017 [facility] Sodium 134 mmol/L Low 135-[address] [place] [address] [phone] Potassium 3.9 mmol/L N 3.5-5.0 Chloride 100 mmol/L Low 101-111 Co2 Carbon Dioxide 28 mmol/L N 22-32 Anion Gap 6 mmol/L N 2-11 Glucose 129 mg/dL High 70-100 Blood Urea Nitrogen 15 mg/dL N 6-24 Creatinine 0.92 mg/dL N 0.67-1.17 BUN/Creatinine Ratio 16.3 N 8-20 Calcium 8.8 mg/dL N 8.6-10.3 Total Protein 6.4 g/dL N 6.4-8.9 Albumin 3.4 g/dL N 3.2-5.2 Globulin 3.0 g/dL N 2-4 Albumin/Globulin Ratio 1.1 N 1-3 Total Bilirubin 0.60 mg/dL N 0.2-1.0 Alkaline Phosphatase 113 U/L High 34-104 Alt 55 U/L High 7-52 Ast 74 U/L High 13-39 Egfr Non- 81.6 >60 Egfr 98.7 >60 79 Laboratory test 10/04/2017 [facility] C Reactive 12.45 mg/L High <8.[address] [place] [address] [phone] Comp Metabolic 10/02/2017 [facility] Sodium 134 mmol/L Low 135 -[address] [place] [address] [phone] Potassium 3.8 mmol/L N 3.5-5.0 Chloride 98 mmol/L Low 101-111 Co2 Carbon Dioxide 31 mmol/L N 22-32 Anion Gap 5 mmol/L N 2-11 Glucose 112 mg/dL High 70-100 Blood Urea Nitrogen 19 mg/dL N 6-24 Creatinine 0.96 mg/dL N 0.67-1.17 BUN/Creatinine Ratio 19.8 N 8-20 Calcium 9.1 mg/dL N 8.6-10.3 Total Protein 6.5 g/dL N 6.4-8.9 Albumin 3.5 g/dL N 3.2-5.2 Globulin 3.0 g/dL N 2-4 Albumin/Globulin Ratio 1.2 N 1-3 Total Bilirubin 0.70 mg/dL N 0.2-1.0 Alkaline Phosphatase 124 U/L High 34-104 Alt 21 U/L N 7-52 Ast 27 U/L N 13-39 Egfr Non- 77.7 >60 Egfr 94.0 >60 80 CBC Auto Diff 10/02/2017 [facility] White Blood 6.3 10^3/uL N 3.5-10.[address] [place] [address] [phone] Red Blood Count 4.29 10^6/uL N 4.00-5.40 Hemoglobin 14.7 g/dL N 14.0-18.0 Hematocrit 43 % N 42-52 Mean Corpuscular Volume 99 fL High 80-94 Mean Corpuscular Hemoglobin 34 pg High 27-31 Mean Corpuscular HGB Conc 35 g/dL N 31-36 Red Cell Distribution Width 16 % High 10.5-15 Platelet Count 164 10^3/uL N 150-450 Mean Platelet Volume 8.9 um3 N 7.4-10.4 Abs Neutrophils 4.3 10^3/uL N 1.5-7.7 Abs Lymphocytes 0.9 10^3/uL Low 1.0-4.8 Abs Monocytes 0.8 10^3/uL N 0-0.8 Abs Eosinophils 0.3 10^3/uL N 0-0.6 Abs Basophils 0.1 10^3/uL N 0-0.2 Abs Nucleated RBC 0 10^3/uL Granulocyte % 67.8 % N 38-83 Lymphocyte % 14.3 % Low 25-47 Monocyte % 12.7 % High 0-7 Eosinophil % 4.1 % N 0-6 Basophil % 1.1 % N 0-2 Nucleated Red Blood Cells % 0.2 Laboratory test 10/02/2017 [facility] C Reactive 5.92 mg/L N < 8.[address] [place] [address] [phone] Wound 09/28/2017 [facility] Wound/Misc SEE RESULT 81, 82 Culture/Sensi [address] [address] Stain [phone] CBC Auto Diff 09/17/2017 [facility] White Blood 5.8 N 3.5- 10.[address] Count 10^3/uL [place], [place] [id number] [phone] Red Blood Count 4.18 10^6/uL N 4.0-5.4 Hemoglobin 13.9 g/dL Low 14.0-18.0 Hematocrit 42 % N 42-52 Mean Corpuscular Volume 100 fL High 80-94 Mean Corpuscular Hemoglobin 33 pg High 27-31 Mean Corpuscular HGB Conc 33 g/dL N 31-36 Red Cell Distribution Width 16 % High 10.5-15 Platelet Count 161 10^3/uL N 150-450 Mean Platelet Volume 8.2 um3 N 7.4-10.4 Abs Neutrophils 3.6 10^3/uL N 1.5-7.7 Abs Lymphocytes 0.9 10^3/uL Low 1.0-4.8 Abs Monocytes 1.0 10^3/uL High 0-0.8 Abs Eosinophils 0.2 10^3/uL N 0-0.6 Abs Basophils 0.1 10^3/uL N 0-0.2 Abs Nucleated RBC 0 10^3/uL Granulocyte % 62.5 % N 38-83 Lymphocyte % 15.6 % Low 25-47 Monocyte % 17.4 % High 0-7 Eosinophil % 3.2 % N 0-6 Basophil % 1.3 % N 0-2 Nucleated Red Blood Cells % 0 Basic Metabolic 09/17/2017 [facility] Sodium 135 mmol/L Low 139-[address] [place] [address] [phone] Potassium 4.5 mmol/L N 3.5-5.0 Chloride 100 mmol/L Low 101-111 Co2 Carbon Dioxide 28 mmol/L N 22-32 Anion Gap 7 mmol/L N 2-11 Glucose 101 mg/dL High 70-100 Blood Urea Nitrogen 12 mg/dL N 6-24 Creatinine 1.09 mg/dL N 0.67-1.17 BUN/Creatinine Ratio 11.0 N 8-20 Calcium 9.3 mg/dL N 8.6-10.3 Egfr Non- 67.1 >60 Egfr 86.3 >60 83 Laboratory test 09/17/2017 [facility] C Reactive 14.45 mg/L High < 5.00 [address] [place] [address] [phone] Hemoglobin A1c (Glyco HGB) 5.4 % N 4.0-5.6 85 Laboratory test 09/16/2017 [facility] Epifix 3.5X3.5 SEE RESULTS 86, [address] Mesh [place]O <[place] [address] NOTE> [phone] Laboratory test 09/09/2017 [facility] Epifix 3.5X3.5 SEE RESULTS [address] Mesh [place] <[place] [address] NOTE> [phone] Laboratory test 08/13/2017 [facility] Point of Care 119 mg/dL High 70-1 [address] Glucose 00 [place], [place] [id number] [phone] Laboratory test 08/13/2017 [facility] Point of Care 129 mg/dL High 70-1 [address] Glucose 00 [place] [address] [phone] Laboratory test 08/12/2017 [facility] Point of Care 113 mg/dL High 70-1 [address] Glucose 00 [place] [address] [phone] Laboratory test 08/12/2017 [facility] Point of Care 178 mg/dL High 70-1 [address] Glucose 00 [place], [place] [id number] [phone] Laboratory test 08/11/2017 [facility] Point of Care 120 mg/dL High 70-1 [address] Glucose 00 [place] [address] [phone] Laboratory test 08/11/2017 [facility] Point of Care 153 mg/dL High 70-1 [address] Glucose 00 [place] [address] [phone] Laboratory test 08/09/2017 [facility] Point of Care 109 mg/dL High 70-1 [address] Glucose 00 [place] [address] [phone] Laboratory test 08/09/2017 [facility] Point of Care 154 mg/dL High 70-1 [address] Glucose 00 [place] [address] [phone] Laboratory test 08/06/2017 [facility] Point of Care 109 mg/dL High 70-1 [address] Glucose 00 [place] [address] [phone] Laboratory test 08/06/2017 [facility] Point of Care 134 mg/dL High 70-1 [address] Glucose 00 [place], [place] [id number] [phone] Laboratory test 08/04/2017 [facility] Point of Care 117 mg/dL High 70-1 [address] Glucose 00 [place], [place] [id number] [phone] Laboratory test 08/04/2017 [facility] Point of Care 138 mg/dL High 70-1 [address] Glucose 00 [place] [address] [phone] Laboratory test 08/03/2017 [facility] Point of Care 112 mg/dL High 70-1 [address] Glucose 00 [place] [address] [phone] Laboratory test 08/03/2017 [facility] Point of Care 142 mg/dL High 70-1 [address] Glucose 00 [place], [place] [address]55 [phone] Laboratory test 08/02/2017 [facility] Point of Care 85 mg/dL N 70-1 [address] Glucose 00 [place] [address] [phone] Laboratory test 08/02/2017 [facility] Point of Care 134 mg/dL High 70-1 [address] Glucose 00 [place] [address] [phone] Laboratory test 07/30/2017 [facility] Point of Care 91 mg/dL N 70-1 [address] Glucose 00 [place] [address] [phone] Laboratory test 07/30/2017 [facility] Point of Care 131 mg/dL High 70-1 [address] Glucose 00 [place] [address] [phone] Laboratory test 07/29/2017 [facility] Point of Care 167 mg/dL High 70-1 [address] Glucose 00 [place] [address] [phone] Laboratory test 07/29/2017 [facility] Point of Care 133 mg/dL High 70-1 [address] Glucose 00 [place] [address] [phone] Laboratory test 07/28/2017 [facility] Point of Care 98 mg/dL N 70-1 [address] Glucose 00 [place] [address] [phone] Laboratory test 07/28/2017 [facility] Point of Care 158 mg/dL High 70-1 [address] Glucose 00 [place] [address] [phone] Laboratory test 07/27/2017 [facility] Point of Care 150 mg/dL High 70-1 [address] Glucose 00 [place] [address] [phone] Laboratory test 07/26/2017 [facility] Point of Care 123 mg/dL High 70-1 [address] Glucose 00 [place] [address] [phone] Laboratory test 07/26/2017 [facility] Point of Care 127 mg/dL High 70-1 [address] Glucose [address] [place] [address] [phone] Laboratory test 07/22/2017 [facility] Point of Care 125 mg/dL High 70-1 [address] Glucose [address] [place] [address] [phone] Laboratory test 07/22/2017 [facility] Point of Care 123 mg/dL High 70-[address] Glucose 00 [place] [address] [phone] Laboratory test 07/21/2017 [facility] Point of Care 130 mg/dL High 70-1 [address] Glucose 00 [place] [address] [phone] Laboratory test 07/21/2017 [facility] Point of Care 118 mg/dL High 70-1 [address] Glucose 00 [place] [address] [phone] Laboratory test 07/21/2017 [facility] Point of Care 119 mg/dL High 70-1 [address] Glucose 00 [place] [address] [phone] Laboratory test 07/20/2017 [facility] Point of Care 151 mg/dL High 70-1 [address] Glucose 00 [place] [address] [phone] Laboratory test 07/20/2017 [facility] Point of Care 114 mg/dL High 70-1 [address] Glucose 00 [place] [address] [phone] Laboratory test 07/19/2017 [facility] Point of Care 137 mg/dL High 70-1 [address] Glucose 00 [place], [place] [id number] [phone] Laboratory test 07/19/2017 [facility] Point of Care 100 mg/dL N 70-1 [address] Glucose 00 [place], [place] [id number] [phone] Laboratory test 07/15/2017 [facility] Point of Care 132 mg/dL High 70-1 [address] Glucose 00 [place] [address] [phone] Laboratory test 07/15/2017 [facility] Point of Care 108 mg/dL High 70-1 [address] Glucose 00 [place] [address] [phone] Laboratory test 07/15/2017 [facility] Point of Care 121 mg/dL High 70-1 [address] Glucose 00 [place] [address] [phone] Laboratory test 07/14/2017 [facility] Point of Care 109 mg/dL High 70-1 [address] Glucose 00 [place] [address] [phone] Laboratory test 07/14/2017 [facility] Point of Care 120 mg/dL High 70-1 [address] Glucose 00 [place] [address] [phone] Laboratory test 07/13/2017 [facility] Point of Care 111 mg/dL High 70-1 [address] Glucose 00 [place] [address] [phone] Laboratory test 07/13/2017 [facility] Point of Care 145 mg/dL High 70-1 [address] Glucose 00 [place] [address] [phone] Laboratory test 07/12/2017 [facility] Point of Care 117 mg/dL High 70-1 [address] Glucose 00 [place] [address] [phone] Laboratory test 07/12/2017 [facility] Point of Care 108 mg/dL High 70-1 [address] Glucose 00 [place] [address] [phone] Laboratory test 07/12/2017 [facility] Point of Care 134 mg/dL High 70-1 [address] Glucose 00 [place], [place] [address]28354 [phone] Laboratory test 07/05/2017 [facility] Point of Care 99 mg/dL N 70-1 [address] Glucose 00 [place] [address] [phone] Laboratory test 07/05/2017 [facility] Point of Care 129 mg/dL High 70-1 [address] Glucose 00 [place] [address] [phone] Laboratory test 07/02/2017 [facility] Point of Care 172 mg/dL High 70-1 [address] Glucose 00 [place] [address] [phone] Laboratory test 07/02/2017 [facility] Point of Care 99 mg/dL N 70-1 [address] Glucose 00 [place] [address] [phone] Laboratory test 07/01/2017 [facility] Point of Care 151 mg/dL High 70-1 [address] Glucose 00 [place] [address] [phone] Laboratory test 07/01/2017 [facility] Point of Care 105 mg/dL High 70-1 [address] Glucose 00 [place] [address] [phone] Laboratory test 06/30/2017 [facility] Point of Care 153 mg/dL High 70-1 [address] Glucose 00 [place] [address] [phone] Laboratory test 06/30/2017 [facility] Point of Care 123 mg/dL High 70-1 [address] Glucose 00 [place] [address] [phone] Laboratory test 06/29/2017 [facility] Point of Care 122 mg/dL High 70-1 [address] Glucose 00 [place] [address] [phone] Laboratory test 06/29/2017 [facility] Point of Care 100 mg/dL N 70-1 [address] Glucose 00 [place] [address] [phone] Laboratory test 06/29/2017 [facility] Point of Care 140 mg/dL High 70-1 [address] Glucose 00 [place] [address] [phone] Laboratory test 06/28/2017 [facility] Point of Care 160 mg/dL High 70-1 [address] Glucose 00 [place] [address] [phone] Laboratory test 06/28/2017 [facility] Point of Care 115 mg/dL High 70-1 [address] Glucose 00 [place] [address] [phone] Laboratory test 06/25/2017 [facility] Point of Care 161 mg/dL High 70-1 [address] Glucose 00 [place], [place] 3907273 [phone] Laboratory test 06/25/2017 [facility] Point of Care 120 mg/dL High 70-1 [address] Glucose 00 [place] [address] [phone] Laboratory test 06/24/2017 [facility] Point of Care 105 mg/dL High 70-1 [address] Glucose 00 [place] [address] [phone] Laboratory test 06/24/2017 [facility] Point of Care 145 mg/dL High 70-1 [address] Glucose 00 [place] [address] [phone] Laboratory test 06/23/2017 [facility] Point of Care 117 mg/dL High 70-1 [address] Glucose 00 [place] [address] [phone] Laboratory test 06/23/2017 [facility] Point of Care 123 mg/dL High 70-1 [address] Glucose 00 [place] [address] [phone] Laboratory test 05/31/2017 [facility] Prealbumin 14 mg/dL Low 18-[address] 8 [place] [address] [phone] Vitamin B12 477 pg/mL N 180-914 152 Vitamin D Total 25(Oh) 34.8 ng/mL N 20-50 Laboratory test 04/30/2017 [facility] Point of Care 104 mg/dL High 70-100 [address] [place] [address] [phone] Laboratory test 04/13/2017 [facility] Surgical SEE RESULT [address] [place] [address] [phone] Comp Metabolic 04/11/2017 [facility] Sodium 127 mmol/L Low 133 -145 Panel 101 [place] [address] [phone] Potassium 3.7 mmol/L N 3.5-5.0 Chloride 91 mmol/L Low 101-111 Co2 Carbon Dioxide 27 mmol/L N 22-32 Anion Gap 9 mmol/L N 2-11 Glucose 105 mg/dL High 70-100 Blood Urea Nitrogen 16 mg/dL N 6-24 Creatinine 0.94 mg/dL N 0.67-1.17 BUN/Creatinine Ratio 17.0 N 8-20 Calcium 9.7 mg/dL N 8.6-10.3 Total Protein 7.2 g/dL N 6.4-8.9 Albumin 3.5 g/dL N 3.2-5.2 Globulin 3.7 g/dL N 2-4 Albumin/Globulin Ratio 0.9 Low 1-3 Total Bilirubin 0.80 mg/dL N 0.2-1.0 Alkaline Phosphatase 137 U/L High 34-104 Alt 29 U/L N 7-52 Ast 32 U/L N 13-39 Egfr Non- 79.6 >60 Egfr 102.3 >60 155 Laboratory test 04/11/2017 [facility] Lactic Acid 2.2 mmol/L High 0.5-2.0 156 finding 101 [place] [address] [phone] Inr/Protime 04/11/2017 [facility] Inr 1.36 High 0.77-1.02 157 [address] [place] [address] [phone] Laboratory test 04/11/2017 [facility] Partial 40.0 High 26.0- 36.3 finding 101 [facility] [place] [address] Time PTT [phone] Urinalysis 04/11/2017 [facility] Urine Color Yellow Profile [address] [place] [address] [phone] Urine Appearance Clear Urine Specific Hewitt 1.005 Low 1.010-1.030 Urine pH 6.0 N 5-9 Urine Urobilinogen Negative Negative Urine Ketones Trace Abnormal Negative Urine Protein Negative Negative Urine Leukocytes Negative Negative Urine Blood Negative Negative Urine Nitrite Negative Negative Urine Bilirubin Negative Negative Urine Glucose Negative Negative CBC Auto Diff 04/11/2017 [facility] White Blood 9.8 10^3/uL N 3.5-10.[address] [place] [address] [phone] Red Blood Count 4.10 10^6/uL N 4.0-5.4 Hemoglobin 14.5 g/dL N 14.0-18.0 Hematocrit 41 % Low 42-52 Mean Corpuscular Volume 99 fL High 80-94 Mean Corpuscular Hemoglobin 35 pg High 27-31 Mean Corpuscular HGB Conc 36 g/dL N 31-36 Red Cell Distribution Width 14 % N 10.5-15 Platelet Count 180 10^3/uL N 150-450 Mean Platelet Volume 9 um3 N 7.4-10.4 Abs Neutrophils 7.7 10^3/uL N 1.5-7.7 Abs Lymphocytes 0.7 10^3/uL Low 1.0-4.8 Abs Monocytes 1.2 10^3/uL High 0-0.8 Abs Eosinophils 0.1 10^3/uL N 0-0.6 Abs Basophils 0.1 10^3/uL N 0-0.2 Abs Nucleated RBC 0 10^3/uL Granulocyte % 78.9 % N 38-83 Lymphocyte % 6.9 % Low 25-47 Monocyte % 12.6 % High 1-9 Eosinophil % 0.6 % N 0-6 Basophil % 1.0 % N 0-2 Nucleated Red Blood Cells % 0 Laboratory test 04/11/2017 [facility] Blood Culture SEE RESULT [address] [place] [address] [phone] Laboratory test 01/25/2017 [facility] Surgical SEE RESULT [address] [place] [address] [phone] Laboratory test 07/16/2016 [facility] Hemoglobin A1c 5.5 5-7 finding Urine Microalbumin 07/15/2016 [facility] Urine 46.19 mg/dL N Random [address] [place] [address] [phone] Ur Microalbumin (mg/L) 61.9 mg/L N Urine Microalbumin/Creatinine 134.0 ug/mg High <31 Comp Metabolic Panel 07/15/2016 [facility] Sodium 138 mmol/L N 133-[address] [place] [address] [phone] Potassium 4.0 mmol/L N 3.5-5.0 Chloride 102 mmol/L N 101-111 Co2 Carbon Dioxide 28 mmol/L N 22-32 Anion Gap 8 mmol/L N 2-11 Glucose 124 mg/dL High 70-100 Blood Urea Nitrogen 15 mg/dL N 6-24 Creatinine 0.90 mg/dL N 0.67-1.17 BUN/Creatinine Ratio 16.7 N 8-20 Calcium 9.2 mg/dL N 8.6-10.3 Total Protein 6.6 g/dL N 6.4-8.9 Albumin 3.7 g/dL N 3.2-5.2 Globulin 2.9 g/dL N 2-4 Albumin/Globulin Ratio 1.3 N 1-3 Total Bilirubin 1.50 mg/dL High 0.2-1.0 Alkaline Phosphatase 126 U/L High 34-104 Alt 14 U/L N 7-52 Ast 19 U/L N 13-39 Egfr Non- 83.9 N >60 Egfr 107.9 N >60 160 Lipid Profile 07/15/2016 [facility] Triglycerides 159 mg/dL N 161 (Trig/Chol/HDL) [address] [place] [address] [phone] Cholesterol 147 mg/dL N 162 HDL Cholesterol 42.9 mg/dL N 163 LDL Cholesterol 72 mg/dL N 164 Laboratory test 02/26/2016 [facility] Hemoglobin A1c 5.8 5-7 finding Laboratory test 12/27/2015 [facility] MRSA/S. aureus SEE RESULT 165, [address] [place] [address] [phone] Wound 12/27/2015 [facility] Wound/Misc SEE RESULT 167 Culture/Sensi [address] Culture[place] [address] [phone] Laboratory test 05/28/2015 [facility] Hemoglobin A1c 5.5 5-7 finding Laboratory test 10/09/2014 B-Type Natriuretic 230 pg/mL High 168 finding Peptide BNP Lipid Profile 10/09/2014 Triglycerides 96 mg/dL N 169 (Trig/Chol/HDL) Cholesterol 123 mg/dL N 170 HDL Cholesterol 36.4 mg/dL N 171 LDL Cholesterol 67 mg/dL N 172 Urine Microalbumin Random 10/09/2014 Ur Microalbumin (mg/L) < 5.0 mg/L N Urine Creatinine 106.84 mg/dL N Urine Microalbumin/Creatinine TNP ug/mg N <31 173 Laboratory test 09/25/2014 [facility] Hemoglobin A1c 5.4 5-7 finding CBC Auto Diff 09/24/2014 [facility] White Blood Count 8.2 N 4.8-10.[address] 10^3/uL [place], [place] [id number] [phone] Red Blood Count 4.81 10^6/uL N 4.0-5.4 Hemoglobin 15.1 g/dL N 14.0-18.0 Hematocrit 47 % N 42-52 Mean Corpuscular Volume 97 fL High 80-94 Mean Corpuscular Hemoglobin 31 pg N 27-31 Mean Corpuscular HGB Conc 32 g/dL N 31-36 Red Cell Distribution Width 16 % High 10.5-15 Platelet Count 168 10^3/uL N 150-450 Mean Platelet Volume 10 um3 N 7.4-10.4 Abs Neutrophils 5.9 10^3/uL N 1.5-7.7 Abs Lymphocytes 1.0 10^3/uL N 1.0-4.8 Abs Monocytes 1.0 10^3/uL High 0-0.8 Abs Eosinophils 0.2 10^3/uL N 0-0.6 Abs Basophils 0.1 10^3/uL N 0-0.2 Abs Nucleated RBC 0 10^3/uL N Granulocyte % 72.5 % N 38-83 Lymphocyte % 12.7 % Low 25-47 Monocyte % 12.1 % High 1-9 Eosinophil % 2.0 % N 0-6 Basophil % 0.7 % N 0-2 Nucleated Red Blood Cells % 0.1 N Comp Metabolic Panel 09/24/2014 [facility] Sodium 138 mmol/L N 133-[address] [place] [address] [phone] Potassium 4.9 mmol/L N 3.5-5.0 Chloride 98 mmol/L Low 101-111 Co2 Carbon Dioxide 33 mmol/L High 22-32 Anion Gap 7 mmol/L N 2-11 Glucose 100 mg/dL N 70-100 Blood Urea Nitrogen 20 mg/dL N 6-24 Creatinine 0.96 mg/dL N 0.67-1.17 BUN/Creatinine Ratio 20.8 High 8-20 Calcium 10.1 mg/dL N 8.6-10.3 Total Protein 6.4 g/dL N 6.4-8.9 Albumin 3.8 g/dL N 3.2-5.2 Globulin 2.6 g/dL N 2-4 Albumin/Globulin Ratio 1.5 N 1-3 Total Bilirubin 0.50 mg/dL N 0.2-1.0 Alkaline Phosphatase 81 U/L N 34-104 Alt 23 U/L N 7-52 Ast 38 U/L N 13-39 Egfr Non- 78.4 N >60 Egfr 100.8 N >60 174 Urine Microalbumin 10/10/2013 [facility] Ur Microalbumin 5.0 mg/ dL N <30 [address] (mg/L) [place], [place] [id number] [phone] Urine Creatinine 156.07 mg/dL N Urine Microalbumin/Creatinine 3.2 N Less Than 31 Comp Metabolic Panel 10/05/2013 [facility] Sodium 140 mmol/L N 133-[address] [place], [place] [id number] [phone] Potassium 3.9 mmol/L N 3.7-5.6 Chloride 104 mmol/L N 101-111 Co2 Carbon Dioxide 30 mmol/L N 22-32 Anion Gap 6 mmol/L N 2-11 Glucose 98 mg/dL N 70-100 Blood Urea Nitrogen 15 mg/dL N 6-24 Creatinine 0.94 mg/dL N 0.67-1.17 BUN/Creatinine Ratio 16.0 N 8-20 Calcium 9.0 mg/dL N 8.6-10.3 Total Protein 6.5 g/dL N 6.4-8.9 Albumin 3.8 g/dL N 3.2-5.2 Globulin 2.7 g/dL N 2-4 Albumin/Globulin Ratio 1.4 N 1-3 Total Bilirubin 1.00 mg/dL N 0.2-1.0 Alkaline Phosphatase 110 U/L High 34-104 Alt 20 U/L N 7-52 Ast 20 U/L N 13-39 Egfr Non- 80.5 N >60 Egfr 103.6 N >60 177 Lipid Profile 10/05/2013 [facility] Triglycerides 133 mg/dL N 178 (Trig/Chol/HDL) [address] [place] [address] [phone] Cholesterol 123 mg/dL N 179 HDL Cholesterol 29.4 mg/dL N 180 LDL Cholesterol 67 mg/dL N 181 Laboratory 10/05/2013 [facility] Hepatitis C Nonreactive N Nonreactive 182 test finding [address] [place] [address] [phone] Laboratory 10/05/2013 [facility] Hemoglobin 5.2 % N Less than 6.0 183 test finding [address] A1c [place], [place] [id number] [phone] CBC Auto Diff 10/05/2013 [facility] White Blood 7.2 10^3/uL N 4.8-10.[address] [place] [address] [phone] Red Blood Count 4.63 10^6/uL N 4.0-5.4 Hemoglobin 15.0 g/dL N 14.0-18.0 Hematocrit 44 % N 42-52 Mean Corpuscular Volume 96 fL High 80-94 Mean Corpuscular Hemoglobin 33 pg High 27-31 Mean Corpuscular HGB Conc 34 g/dL N 31-36 Red Cell Distribution Width 16 % High 10.5-15 Platelet Count 177 10^3/uL N 150-450 Mean Platelet Volume 10 um3 N 7.4-10.4 Abs Neutrophils 4.6 10^3/uL N 1.5-7.7 Abs Lymphocytes 1.5 10^3/uL N 1.0-4.8 Abs Monocytes 0.9 10^3/uL High 0-0.8 Abs Eosinophils 0.2 10^3/uL N 0-0.6 Abs Basophils 0.1 10^3/uL N 0-0.2 Abs Nucleated RBC 0.01 10^3/uL N Granulocyte % 64.3 % N 38-83 Lymphocyte % 20.4 % Low 25-47 Monocyte % 12.1 % High 1-9 Eosinophil % 2.1 % N 0-6 Basophil % 1.1 % N 0-2 Nucleated Red Blood Cells % 0.1 N Laboratory test 02/06/2013 [facility] Hemoglobin A1c 5.0 5-7 finding Wound Culture/Sensi 06/28/2012 [facility] Wound/Misc (SEE NOTE) [address] [place] [address] [phone] Urine Microalbumin 03/31/2012 [facility] Ur Microalbumin 4.0 mg/ L 185 Random 101 (Mg/L) [place] [address] [phone] Urine Creatinine 90.6 mg/dL Urine Microalbumin/Creatinine 4.4 UG/MG Less Than 31 Laboratory test 03/31/2012 [facility] Hemoglobin A1c 5.6 5-7 finding Laboratory test 03/30/2012 [facility] Creatine Kinase 114 U/L 0-200 finding 101 [place] [address] [phone] Liver Function Panel 03/30/2012 [facility] Total Protein 6.6 g/ dL 6.2-8.1 101 [place] [address] [phone] Albumin 3.7 g/dL 3.2-5.2 Globulin 2.9 g/dL 2-4 Albumin/Globulin Ratio 1.3 1-3 Total Bilirubin 0.9 mg/dL 0.4-1.5 Direct Bilirubin 0.1 mg/dL 0.1-0.5 Indirect Bilirubin 0.8 mg/dL 0.3-1.0 Alkaline Phosphatase 142 U/L High 30-110 Alt 18 U/L 14-54 Ast 22 U/L 12-42 Laboratory test 12/10/2011 [facility] Hemoglobin A1c 7.1 High 5-7 finding Lipid Profile 12/09/2011 [facility] Triglyceride 161 mg/dL 40 -200 (Trig/Chol/HDL) 101 [place] [address] [phone] Cholesterol 169 mg/dL Less Than 200 186 High Density Lipoprotein 34 mg/dL Low 40-60 187 Cholesterol/HDL Ratio 4.97 AVERAGE 1-4.97 Low Density Lipoprotein 103 mg/dL High Less Than 100 188 Basic Metabolic Panel 12/09/2011 [facility] Sodium 139 mmol/L 135-145 [address] [place] [address] [phone] Potassium 4.0 mmol/L 3.5-5.0 Chloride 104 mmol/L 101-111 Co2 (Carbon Dioxide) 31.0 mmol/L 22-32 Anion Gap 4.0 mmol/L 2-11 189 Glucose 134 mg/dL High 70-100 BUN 11 mg/dL 6-24 Creatinine 1.0 mg/dL 0.50-1.40 One Over Creatinine 1.00 BUN/Creatinine Ratio 11.0 8-20 Calcium 8.5 mg/dL 8.1-9.9 eGFR Non- 75.5 > 60 eGFR 97.1 > 60 190 Laboratory test 12/09/2011 [facility] PSA 1.01 NG/ML 0-4 191 finding 101 [place] [address] [phone] Culture And 03/07/2011 [facility] M [address] [facility] [address] ---- <[place] [address] NOTE> [phone] Culture And 03/07/2011 [facility] M [address] [place] [address] DRIVE ---- <[place] [address] NOTE> [phone] Culture And 03/07/2011 [facility] M [address] [facility] [address] ---- <[place] [address] NOTE> [phone] DR [facility] 06/03/2010 [facility] TSH 3.12 MIU/ML 0.34- 5.60 Panel 101 [place] [address] [phone] CMP Panel 06/03/2010 [facility] Sodium 139 mmol/L 135-145 [address] [place] [address] [phone] Potassium 3.8 mmol/L 3.5-5.0 Chloride 103 mmol/L 101-111 Co2 (Carbon Dioxide) 31.0 mmol/L 22-32 Anion Gap 5.0 mmol/L 2-11 195 Glucose 131 mg/dL High 70-100 BUN 13 mg/dL 6-24 Creatinine 0.90 mg/dL 0.50-1.40 One Over Creatinine 1.10 BUN/Creatinine Ratio 14.4 8-20 Calcium 8.5 mg/dL 8.1-9.9 Total Protein 6.1 GM/DL Low 6.2-8.1 Albumin 3.4 GM/DL 3.2-5.2 Globulin 2.7 GM/DL 2-4 Albumin/Globulin Ratio 1.3 1-3 Bilirubin Total 0.7 mg/dL 0.4-1.5 196 Alkaline Phosphatase 107 U/L 39-117 Alt (SGPT) 18 U/L 17-63 Ast (Sgot) 20 U/L 12-42 eGFR Non- 85.5 > 60 eGFR 110.0 > 60 197 Lipid Panel 06/03/2010 [facility] Triglyceride 125 mg/dL 40- [address] [place] [address] [phone] Cholesterol 233 mg/dL High Less Than 200 198 High Density Lipoprotein 37 mg/dL Low 40-60 199 Cholesterol/HDL Ratio 6.30 AVERAGE High 1-4.97 Low Density Lipoprotein 171 mg/dL High Less Than 100 200 CBC W/Electronic 06/03/2010 [facility] White Blood 7.6 CUMM 4.8-10.8 Diff 101 [place] [address] [phone] Red Cell Count 4.72 CUMM 4.6-6.2 Hemoglobin 15.5 g/dL 14.0-18.0 Hematocrit 46 % 42-52 Mean Corpuscular Volume 97 um3 High 80-94 Mean Corpuscular Hemoglob 33 pg High 27-31 Mean Corpuscular HGB Cone 34 g/dL 32-36 Redcell Distribution WDTH 14 % 10.5-15 Platelet Count 181 CUMM 150-450 Mean Platelet Volume 9.9 um3 7.4-10.4 201 Manual Differential 06/03/2010 [facility] Polysegmented 55 % 38-83 [address] [facility] [place] [address] [phone] Lymphocyte 21 % Low 25-47 Monocyte 16 % High 0-13 Eosinophil 6 % 0-6 Basophil 1 % 0-2 Atypical Lymph 1 % 0-6 Absolute Neutrophil Count 4.1 Anisocytosis SLIGHT Macrocytosis SLIGHT Platelet Evaluation LARGE Laboratory test 06/03/2010 [facility] PSA Screening 0.43 NG/ML 0-[address] [place] [address] [phone] Surgical 11/23/2008 [facility] Surgical [address] Pathology ------ [place] [address] <SEE NOTE> [phone] Comp Metabolic 10/17/2008 [facility] Sodium 138 mmol/L 135- 145 Panel 101 [place] [address] [phone] Potassium 4.2 mmol/L 3.5-5.0 Chloride 102 mmol/L 101-111 Co2 (Carbon Dioxide) 30.0 mmol/L 22-32 Anion Gap 6.0 mmol/L 2-11 204 Glucose 81 mg/dL 70-100 205 BUN 7 mg/dL 6-24 Creatinine 0.80 mg/dL 0.50-1.40 One Over Creatinine 1.20 BUN/Creatinine Ratio 8.8 8-20 Calcium 8.7 mg/dL 8.1-9.9 206 Total Protein 5.3 GM/DL Low 6.2-8.1 Albumin 2.9 GM/DL Low 3.2-5.2 Globulin 2.4 GM/DL 2-4 Albumin/Globulin Ratio 1.2 1-3 Bilirubin Total 0.7 mg/dL 0.4-1.5 207 Alkaline Phosphatase 86 U/L 39-117 Alt (SGPT) 21 U/L 17-63 Ast (Sgot) 22 U/L 12-42 eGFR Non- 104.8 > 60 eGFR 126.8 > 60 208 Lipid Profile 10/17/2008 [facility] Triglyceride 130 mg/dL 40 -200 (Trig/Chol/HDL) 101 [place] [address] [phone] Cholesterol 234 mg/dL High Less Than 200 209 High Density Lipoprotein 41 mg/dL 40-60 210 Cholesterol/HDL Ratio 5.71 AVERAGE High 1-4.97 Low Density Lipoprotein 167 mg/dL High Less Than 100 211 Liver Function 10/17/2008 [facility] Bilirubin Direct 0.1 mg/dL 0.1-0.5 Panel 101 [place] [address] [phone] Indirect Bilirubin 0.6 mg/dL 0.1-0.75 Laboratory test 10/17/2008 [facility] Hemoglobin A1c 5.0 % < 6.0 212 finding [address] [place] [address] [phone] Comp Metabolic 08/07/2008 [facility] Sodium 144 135-[address] mmol/[place] [address] [phone] Potassium 4.5 mmol/L 3.5-5.0 Chloride 108 mmol/L 101-111 Co2 (Carbon Dioxide) 28.0 mmol/L 22-32 Anion Gap 8.0 mmol/L 2-11 213 Glucose 94 mg/dL 70-100 214 BUN 10 mg/dL 6-24 Creatinine 0.80 mg/dL 0.50-1.40 One Over Creatinine 1.20 BUN/Creatinine Ratio 12.5 8-20 Calcium 8.6 mg/dL 8.1-9.9 215 Total Protein 5.5 GM/DL Low 6.2-8.1 Albumin 2.5 GM/DL Low 3.2-5.2 Globulin 3.0 GM/DL 2-4 Albumin/Globulin Ratio 0.8 Low 1-3 Bilirubin Total 2.7 mg/dL High 0.4-1.5 Alkaline Phosphatase 407 U/L High 39-117 Alt (SGPT) 164 U/L High 17-63 Ast (Sgot) 203 U/L High 12-42 Iron & Iron Binding 08/07/2008 [facility] Iron Total 77 g/dL 45-[address] [place] [address] [phone] Unsaturated Iron Binding 146 g/dL Total Iron Binding Capacity 223 g/dL Low 250-450 % Iron Saturation 35 % 15-55 Laboratory test 08/07/2008 [facility] Vitamin B12 1018 pg/mL High 180-[address] [place] [address] [phone] Folic Acid 14.4 NG/ML 2-16 Alcohol < 10.0 mg/dL None Detected 216 Hepatitis B Surface Ag NEGATIVE Negative Hepatitis B Core Igm NEGATIVE Negative Hepatitis A AB Igm NEGATIVE Negative Hepatitis C Antibody NEGATIVE Negative CBC With 07/25/2008 [facility] White Blood 7.2 CUMM 4.8-10.8 Electronic Diff [address] [address] [phone] Red Cell Count 4.70 CUMM 4.6-6.2 Hemoglobin [...] Eosinophils 0 0-0.6 Abs Basophils 0.1 0-0.2 217 P33S 07/25/2008 [facility] Sodium 134 mmol/L Low 135-145 [address] [place] [address] [phone] Potassium 4.4 mmol/L 3.5-5.0 Chloride 96 mmol/L Low 101-111 Co2 (Carbon Dioxide) 27.0 mmol/L 22-32 Anion Gap 11.0 mmol/L 2-11 218 Glucose 95 mg/dL 70-100 219 BUN 20 mg/dL 6-24 Creatinine 1.00 mg/dL 0.50-1.40 One Over Creatinine 1.00 BUN/Creatinine Ratio 20.0 8-20 Calcium 8.9 mg/dL 8.1-9.9 220 Total Protein 5.4 GM/DL Low 6.2-8.1 Albumin 2.9 GM/DL Low 3.2-5.2 Globulin 2.5 GM/DL 2-4 Albumin/Globulin Ratio 1.2 1-3 Bilirubin Total 3.4 mg/dL High 0.4-1.5 Alkaline Phosphatase 382 U/L High 39-117 Alt (SGPT) 555 U/L High 17-63 221 Ast (Sgot) 1013 U/L High 12-42 222 Laboratory test finding 07/25/2008 [facility] Lipase 46 U/L 22-51 [address] [place] [address] [phone] Troponin-I (TnI) 0.04 NG/ML 0-0.06 223 Laboratory test 03/12/2008 [facility] PSA,Diagnostic 0.38 NG/ML 0-4 224 finding [address] [place] [address] [phone] Comp Metabolic 12/29/2007 [facility] Sodium 140 mmol/L 135- 145 225 Panel [address] [place] [address] [phone] Potassium 5.2 mmol/L High 3.5-5.0 Chloride 105 mmol/L 101-111 Co2 (Carbon Dioxide) 33.0 mmol/L High 22-32 Anion Gap 2.0 mmol/L 2-11 226 Glucose 91 mg/dL 70-100 227 BUN 13 mg/dL 6-24 Creatinine 0.9 mg/dL 0.5-1.4 One Over Creatinine 1.11 BUN/Creatinine Ratio 14.4 8-20 Calcium 9.3 mg/dL 8.1-9.9 228 Total Protein 6.3 GM/DL 6.2-8.1 Albumin 3.4 GM/DL Low 3.6-5.4 Globulin 2.9 GM/DL 2-4 Albumin/Globulin Ratio 1.2 1-3 Bilirubin Total 0.4 mg/dL 0.4-1.5 Alkaline Phosphatase 99 U/L 39-117 Alt (SGPT) 40 U/L 17-63 Ast (Sgot) 35 U/L 12-42 Basic Metabolic Panel 12/06/2007 [facility] Sodium 138 mmol/L 135-145 [address] [place] [address] [phone] Potassium 4.3 mmol/L 3.5-5.0 Chloride 101 mmol/L 101-111 Co2 (Carbon Dioxide) 33.0 mmol/L High 22-32 Anion Gap 4.0 mmol/L 2-11 229 Glucose 87 mg/dL 70-100 230 BUN 22 mg/dL 6-24 Creatinine 1.0 mg/dL 0.5-1.4 One Over Creatinine 1.00 BUN/Creatinine Ratio 22.0 High 8-20 Calcium 9.1 mg/dL 8.1-9.9 231 Liver Function 12/06/2007 [facility] Total Protein 6.3 GM/DL 6.2-8.1 Panel [address] [place] [address] [phone] Albumin 3.5 GM/DL Low 3.6-5.4 Globulin 2.8 GM/DL 2-4 Albumin/Globulin Ratio 1.3 1-3 Bilirubin Total 0.8 mg/dL 0.4-1.5 Bilirubin Direct 0.2 mg/dL 0.1-0.5 Indirect Bilirubin 0.6 mg/dL 0.1-0.75 Alkaline Phosphatase 104 U/L 39-117 Alt (SGPT) 80 U/L High 17-63 Ast (Sgot) 72 U/L High 12-42 Laboratory test finding 12/06/2007 [facility] GGTP 122 U/L High 7-[address] [place] [address] [phone] Vitamin B12 341 pg/mL 180-914 Folic Acid 11.1 NG/ML 2-16 Alcohol < 10.0 mg/dL None Detected 232 Thyroxine Free 0.68 NG/ML 0.61-1.24 233 TSH 2.54 MIU/ML 0.34-5.60 Hemoglobin A1c 5.3 % <6.0 234 Protime 12/01/2007 [facility] Protime 11.7 10.9-13.[address] [place] [address] [phone] Inr 0.93 235 Laboratory test 12/01/2007 [facility] PTT (Aptt) 22.6 20.1- 28.2 [address] [place] [address] [phone] CBC With 12/01/2007 [facility] White Blood 9.9 CUMM 4.8-10.8 Electronic Diff [address] [place] [address] [phone] Red Cell Count 4.40 CUMM Low 4.6-6.2 [...] Eosinophils 0 0-0.6 Abs Basophils 0 0-0.2 237 P33S 12/01/2007 [facility] Sodium 140 mmol/L 135-[address] [place] [address] [phone] Potassium 3.9 mmol/L 3.5-5.0 Chloride 99 mmol/L Low 101-111 Co2 (Carbon Dioxide) 30.0 mmol/L 22-32 Anion Gap 11.0 mmol/L 2-11 238 Glucose 127 mg/dL High 70-100 239 BUN 19 mg/dL 6-24 Creatinine 1.0 mg/dL 0.5-1.4 One Over Creatinine 1.00 BUN/Creatinine Ratio 19.0 8-20 Calcium 9.6 mg/dL 8.1-9.9 240 Total Protein 7.3 GM/DL 6.2-8.1 Albumin 3.9 GM/DL 3.6-5.4 Globulin 3.4 GM/DL 2-4 Albumin/Globulin Ratio 1.1 1-3 Bilirubin Total 1.0 mg/dL 0.4-1.5 Alkaline Phosphatase 106 U/L 39-117 Alt (SGPT) 71 U/L High 17-63 Ast (Sgot) 83 U/L High 12-42 Laboratory test 12/01/2007 [facility] Troponin-I 0.02 NG/ML 0 -0.[address] (TnI) [place] [address] [phone] CBC With 10/19/2007 [facility] White Blood 6.8 CUMM 4.8-10.8 Electronic Diff [address] [place] [address] [phone] Red Cell Count 3.72 CUMM Low 4.6-6.2 [...] 0-0.6 Abs Basophils 0.2 0-0.2 DS3 10/19/2007 [facility] Amphetamines Urine NONE DETECTED None Detect [address] [place] [address] [phone] Barbituates Urine Screen NONE DETECTED None Detect Benzodiazepine Ur Screen NONE DETECTED None Detect Cannabinoid Urine Screen NONE DETECTED None Detect Cocaine Metabolites Urine NONE DETECTED None Detect Opiates Urine Screen POSITIVE Abnormal None Detect PCP Urine Screen NONE DETECTED None Detect 242 P33S 10/19/2007 [facility] Sodium 141 mmol/L 135-[address] [place] [address] [phone] Potassium 4.8 mmol/L 3.5-5.0 Chloride 108 mmol/L 101-111 Co2 (Carbon Dioxide) 28.0 mmol/L 22-32 Anion Gap 5.0 mmol/L 2-11 243 Glucose 80 mg/dL 70-105 BUN 24 mg/dL 6-24 Creatinine 1.1 mg/dL 0.5-1.4 One Over Creatinine 0.90 BUN/Creatinine Ratio 21.8 High 8-20 Calcium 7.3 mg/dL Low 8.1-9.9 244 Total Protein 5.7 GM/DL Low 6.2-8.1 Albumin 3.0 GM/DL Low 3.6-5.4 Globulin 2.7 GM/DL 2-4 Albumin/Globulin Ratio 1.1 1-3 Bilirubin Total 1.0 mg/dL 0.4-1.5 Alkaline Phosphatase 82 U/L 39-117 Alt (SGPT) 28 U/L 17-63 Ast (Sgot) 53 U/L High 12-42 Alcohol Stat 10/19/2007 [facility] Alcohol 374.5 High None Detected [address] mg/[place] [address] [phone] Basic Metabolic 10/07/2007 [facility] Sodium 141 mmol/L 135- 145 [address] [place] [address] [phone] Potassium 4.2 mmol/L 3.5-5.0 Chloride 105 mmol/L 101-111 Co2 (Carbon Dioxide) 31.0 mmol/L 22-32 Anion Gap 5.0 mmol/L 2-11 247 Glucose 91 mg/dL 70-105 BUN 25 mg/dL High 6-24 Creatinine 0.9 mg/dL 0.5-1.4 One Over Creatinine 1.11 BUN/Creatinine Ratio 27.8 High 8-20 Calcium 8.9 mg/dL 8.1-9.9 248 CBC With Manual 10/07/2007 [facility] White Blood 5.8 CUMM 4.8-10.[address] [place] [address] [phone] Red Cell Count 4.10 CUMM Low 4.6-6.2 Hemoglobin 14.4 g/dL 14.0-18.0 Hematocrit 41 % Low 42-52 Mean Corpuscular Volume 100 um3 High 80-94 Mean Corpuscular Hemoglob 35 pg High 27-31 Mean Corpuscular HGB Cone 35 g/dL 32-36 Redcell Distribution WDTH 13 % 10.5-15 Platelet Count 263 CUMM 150-450 Mean Platelet Volume 8.7 um3 7.4-10.4 Polysegmented Neutrophil 71 % 38-83 Lymphocyte 16 % 5-47 Monocyte 11 % 0-13 Eosenophil 2 % 0-6 Absolute Neutrophil Count 4.1 Macrocytosis SLIGHT CBC With 09/27/2007 [facility] White Blood 9.0 CUMM 4.8-10.8 Electronic Diff [address] [place] [address] [phone] Red Cell Count 4.34 CUMM Low 4.6-6.2 [...] 0-0.6 Abs Basophils 0.1 0-0.2 P33S 09/27/2007 [facility] Sodium 139 mmol/L 135-[address] [place], [place] [address] [phone] Potassium 3.4 mmol/L Low 3.5-5.0 Chloride 102 mmol/L 101-111 Co2 (Carbon Dioxide) 31.0 mmol/L 22-32 Anion Gap 6.0 mmol/L 2-11 249 Glucose 101 mg/dL 70-105 BUN 15 mg/dL 6-24 Creatinine 0.9 mg/dL 0.5-1.4 One Over Creatinine 1.11 BUN/Creatinine Ratio 16.7 8-20 Calcium 8.3 mg/dL 8.1-9.9 250 Total Protein 6.5 GM/DL 6.2-8.1 Albumin 3.6 GM/DL 3.6-5.4 Globulin 2.9 GM/DL 2-4 Albumin/Globulin Ratio 1.2 1-3 Bilirubin Total 0.4 mg/dL 0.4-1.5 Alkaline Phosphatase 86 U/L 39-117 Alt (SGPT) 45 U/L 17-63 Ast (Sgot) 50 U/L High 12-42 CBC W/ Electronic 01/04/2007 [facility] White Blood 4.7 CUMM Low 4.8-10.[address] [place] [address] [phone] Abs Basophils 0 0-0.2 Abs Eosinophils 0.2 [...] 14 % 10.5-15 Comp Metabolic Panel 01/04/2007 [facility] One Over Creatinine 1.[address] [place] [address] [phone] Anion Gap 6.0 mmol/L 2-11 251 Albumin/Globulin Ratio 1.4 1-3 Albumin 3.6 GM/DL [...] Creatinine 0.9 mg/dL 0.5-1.4 Lipid Profile 01/04/2007 [facility] Cholesterol/HDL 3.10 1- 4.97 (Trig/Chol/HDL) [address] [place] [address] [phone] Cholesterol 183 mg/dL Less Than 200 252 Triglyceride 153 mg/dL 40-200 High Density Lipoprotein 59 mg/dL 40-60 Low Density Lipoprotein 93 mg/dL Less Than 100 253 Laboratory test 01/04/2007 [facility] TSH 2.33 MIU/ML 0.34- 5.[address] [place] [address] [phone] PSA Screening 1.04 NG/ML 0-4 254 1 Because ethnic data is not always readily [...] 15-29 5 Kidney failure <15 (or dialysis) 2 SEE RESULT BELOW Name: ALBIN LUEVANO : [address]: Timmy Lees MD Acct: [id number] Unit: [id number] AGE: 67 Location: ICU [id number] Re12/21/17 SEX: M Status: ADM IN SPEC: [id number] JOHNNY: 12/21/[address] [facility] [address]: Ken Da Silva MD REQ: [id number] RECD: 12/21/17 STATUS: HILDA ALEXANDER DR: Ramez Akins III, MD _ SOURCE: URINE SPDESC: ORDERED: Urine Culture Procedure Result Reported Site Urine Culture Final 12/23/17- 0854 ML No growth of clinically significant organisms * ML - Main Lab . END OF REPORT DEPARTMENT OF PATHOLOGY, [address] [place] [address] Albin Mario M.D. Director [facility] # [id number] 3 [facility] Severe Sepsis and Septic Shock Management Bundle Measure requires all lactic acids initially measuring >2.0 mmol/L be repeated. 4 Normal Range 180 to 914 Indeterminate Range 145 to 180 Deficient Range <145 5 Leukocytosis with absolute neutrophilia indicative of acute inflammatory/reactive process. Progressive macrocytic anemia noted. Additional studies as clinically warranted. Reviewed by Dr. Mario 6 SEE RESULT BELOW Name: ALBIN LUEVANO: [address]: Timmy Lees MD Acct: [id number] Unit: [id number] AGE: 67 Location: [facility] Re12/21/17 SEX: M Status: ADM IN SPEC: [id number] JOHNNY: 12/21/[address]: Ken Da Silva MD REQ: [id number] RECD: 12/21/17 STATUS: HILDA ALEXANDER DR: Ramez Akins III, MD _ SOURCE: BLOOD,VENO SPDESC: ORDERED: Blood Cult Procedure Result Reported Site Aerobic Culture Bottle Final 12/26/17- 2043 ML No Growth Day 5 Anaerobic Culture Bottle Final 12/26/17- 2043 ML No Growth Day 5 * ML - Main Lab . END OF REPORT DEPARTMENT OF PATHOLOGY, [address] [place] [address] Albin Mario M.D. Director [facility] # [id number] 7 F/U 8 SEE RESULTS BELOW [id number] EPIFIX 3.5 MESH TRANSFUSED 12/10/17 0927 9 [employer]: [id number] 10 [employer]: [id number] 11 [employer]: [id number] 12 [employer]: [id number] 13 [employer]: [id number] 14 [employer]: [id number] 15 [employer]: [id number] 16 [employer]: [id number] 17 [employer]: [id number] 18 [employer]: [id number] 19 [employer]: [id number] 20 [employer]: [id number] 21 [employer]: [id number] 22 [employer]: [id number] 23 [employer]: [id number] 24 [employer]: [id number] 25 [employer]: [id number] 26 [employer]: [id number] 27 [employer]: [id number] 28 [employer]: [id number] 29 [employer]: [id number] 30 [employer]: [id number] 31 [employer]: [id number] 32 Because ethnic data is not always readily [...] 15-29 5 Kidney failure <15 (or dialysis) 33 [employer]: [id number] 34 [employer]: [id number] 35 [employer]: [id number] 36 [employer]: [id number] 37 [employer]: [id number] 38 [employer]: [id number] 39 [employer]: [id number] 40 [employer]: [id number] 41 [employer]: [id number] 42 [employer]: [id number] 43 Because ethnic data is not always readily [...] 15-29 5 Kidney failure <15 (or dialysis) 44 [employer]: [id number] 45 [employer]: [id number] 46 [employer]: [id number] 47 [employer]: [id number] 48 [employer]: [id number] 49 [employer]: [id number] 50 [employer]: [id number] 51 [employer]: [id number] 52 [employer]: [id number] 53 Because ethnic data is not always readily [...] 15-29 5 Kidney failure <15 (or dialysis) 54 [employer]: [id number] 55 [employer]: [id number] 56 [employer]: [id number] 57 [employer]: [id number] 58 [employer]: [id number] 59 [employer]: [id number] 60 [employer]: [id number] 61 [employer]: [id number] 62 [employer]: [id number] 63 [employer]: [id number] 64 [employer]: [id number] 65 Because ethnic data is not always readily [...] 15-29 5 Kidney failure <15 (or dialysis) 66 [employer]: [id number] 67 [employer]: [id number] 68 [employer]: [id number] 69 [employer]: [id number] 70 [employer]: [id number] 71 [employer]: [id number] 72 [employer]: [id number] 73 [employer]: [id number] 74 [employer]: [id number] 75 [employer]: [id number] 76 Because ethnic data is not always readily [...] 15-29 5 Kidney failure <15 (or dialysis) 77 [employer]: [id number] 78 [employer]: [id number] 79 Because ethnic data is not always readily [...] 15-29 5 Kidney failure <15 (or dialysis) 80 Because ethnic data is not always readily [...] 15-29 5 Kidney failure <15 (or dialysis) 81 [id number] 82 SEE RESULT BELOW Name: ALBIN LUEVANO : [address]: Bryn Barnhart MD Acct: [id number] Unit: [id number] AGE: 67 Location: [facility] Re09/28/17 SEX: M Status: REG REF SPEC: [id number] JOHNNY: 09/28/171123 [facility] DR: Bryn Barnhart MD REQ: [id number] RECD: 09/28/17 STATUS: COMP _ SOURCE: TOE SPDESC: ORDERED: Culture Stain COMMENTS: [id number] QUERIES: Specimen Description 4TH RIGHT TOE Procedure Result Reported Site Wound/Misc Gram Stain Final 09/29/17- 0746 ML 3+ Neutrophils 1+ Nucleated Cells 1+ Gram Positive Cocci Wound/Misc Culture Final 09/30/17- 1212 ML Organism 1 CORYNEBACTERIUM STRIATUM Quantity 2+ * ML - Main Lab . END OF REPORT DEPARTMENT OF PATHOLOGY, [address] [place] [address] Albin Mario M.D. Director [facility] # [id number] 83 Because ethnic data is not always readily [...] 15-29 5 Kidney failure <15 (or dialysis) 84 Acute inflammation: >10.00 85 Therapeutic target for the treatment of diabetes mellitus patients is <7% HBA1C, and in selective patients <6.0%. Please refer to [place] [employer] diabetic care guidelines for further information. 86 f/u 87 SEE RESULTS BELOW [id number] EPIFIX 3.5 MESH TRANSFUSED 09/17/17 1039 88 SEE RESULTS BELOW [id number] EPIFIX 3.5 MESH TRANSFUSED 09/10/17 1157 89 [employer]: [id number] 90 [employer]: [id number] 91 [employer]: [id number] 92 [employer]: [id number] 93 [employer]: [id number] 94 [employer]: [id number] 95 [employer]: [id number] 96 [employer]: [id number] 97 [employer]: [id number] 98 [employer]: [id number] 99 [employer]: [id number] 100 [employer]: [id number] 101 [employer]: [id number] 102 [employer]: [id number] 103 [employer]: [id number] 104 [employer]: [id number] 105 [employer]: [id number] 106 [employer]: [id number] 107 [employer]: [id number] 108 [employer]: [id number] 109 [employer]: [id number] 110 [employer]: [id number] 111 [employer]: [id number] 112 [employer]: [id number] 113 [employer]: [id number] 114 [employer]: [id number] 115 [employer]: [id number] 116 [employer]: [id number] 117 HBO Protocol [employer]: [id number] 118 [employer]: [id number] 119 [employer]: [id number] 120 [employer]: [id number] 121 [employer]: [id number] 122 [employer]: [id number] 123 [employer]: [id number] 124 [employer]: [id number] 125 [employer]: [id number] 126 [employer]: [id number] 127 [employer]: [id number] 128 [employer]: [id number] 129 [employer]: [id number] 130 [employer]: [id number] 131 [employer]: [id number] 132 [employer]: [id number] 133 [employer]: [id number] 134 [employer]: [id number] 135 [employer]: [id number] 136 [employer]: [id number] 137 [employer]: [id number] 138 [employer]: [id number] 139 [employer]: [id number] 140 [employer]: [id number] 141 [employer]: [id number] 142 [employer]: [id number] 143 [employer]: [id number] 144 [employer]: [id number] 145 [employer]: [id number] 146 [employer]: [id number] 147 [employer]: [id number] 148 [employer]: [id number] 149 [employer]: [id number] 150 [employer]: [id number] 151 [employer]: [id number] 152 Normal Range 180 to 914 Indeterminate Range 145 to 180 Deficient Range <145 153 [employer]: [id number] 154 SEE RESULT BELOW Name: ALBIN LUEVANO : [address]: Janeen Maya MD Acct: [id number] Unit: [id number] AGE: 67 Location: [facility] 352-01 Re04/11/17 Dis: 04/14/17 SEX: M Status: DIS IN SPEC: [id number] JOHNNY: 04/13/17-[address]: Steffen Rojas MD REQ: [id number] RECD: 04/13/17 STATUS: JASSI ALEXANDER DR: Riky Nelson MD _ ORDERED: [facility], LEVEL 4 FINAL DIAGNOSIS Left fifth toe, [...] rubbery cauterized soft tissue and bone fragment. Finishing Tunnel Operator sections are submitted in cassettes A and B as follows: A-bone following decalcification and B-ulcer and soft tissue to include inked margin. MICROSCOPIC DESCRIPTION Signed (signature on file) Linh Ruvalcaba MD 12/28 1045 END OF REPORT * ML=Testing performed at Main Lab DEPARTMENT OF PATHOLOGY, [address] [place] [address] Albin Mario M.D. Director [facility] # [id number] 155 Because ethnic data is not always readily [...] 15-29 5 Kidney failure <15 (or dialysis) 156 Critical Result LACT:2.2 Called to [id number] at: 22:42:51 by:[id number] Read back by:ABIEL BUCKLEY Severe Sepsis and Septic Shock Management Bundle Measure requires all lactic acids initially measuring >2.0 mmol/L be repeated. 157 Please note the change in INR reference range effective 17. 158 SEE RESULT BELOW Name: ALBIN LUEVANO : [address]: Janeen Maya MD Acct: [id number] Unit: [id number] AGE: 67 Location: [facility] 352-01 Re04/11/17 Dis: 04/14/17 SEX: M Status: DIS IN SPEC: [id number] JOHNNY: 04/11/[address]: David Moulton MD REQ: [id number] RECD: 04/11/17 STATUS: HILDA ALEXANDER DR: Ramez Akins III, MD _ SOURCE: BLOOD,VENO SPDESC: ORDERED: Blood Cult COMMENTS: Patient is On Antibiotics? NO Procedure Result Reported Site Aerobic Culture Bottle Final 04/16/17- 0 ML No Growth Day 5 Anaerobic Culture Bottle Final 04/16/17- 2219 ML No Growth Day 5 * ML - MAIN LAB ([facility]) . END OF REPORT * ML=Testing performed at Main Lab DEPARTMENT OF PATHOLOGY, [address] [place] [address] Albin Mario M.D. Director [facility] # [id number] 159 SEE RESULT BELOW Name: LUEVANOALBIN : [address]: Blu Jules MD Acct: [id number] Unit: [id number] AGE: 67 Location: ENDO Re01/25/17 SEX: M Status: DEP REF SPEC: [id number] JOHNNY: 01/25/171248 [facility] DR: Blu Jules MD REQ: [id number] RECD: 01/25/17030 STATUS: JASSI ALEXANDER DR: Ramez Akins III, [...] performed at Main Lab DEPARTMENT OF PATHOLOGY, [address] [place] [address] Albin Mario M.D. Director [facility] # [id number] RUN DATE: 01/26/17 [facility] LAB LIVE PAGE 2 Patient: ALBIN LUEVANO [id number] (Continued) GROSS DESCRIPTION (Continued) GROSS DESCRIPTION 1. [...] performed at Main Lab DEPARTMENT OF PATHOLOGY, [address] [place] [address] Albin Mario M.D. Director [facility] # [id number] 160 Because ethnic data is not always readily [...] 15-29 5 Kidney failure <15 (or dialysis) 161 Desirable <150 Borderline high 150-199 High 200-499 Very High >500 162 Desirable <200 Borderline high 200-239 High >239 163 Low <40 Desirable: 40-60 High: >60 164 Desirable: <100 mg/dL Near Optimal: 100-129 mg/dL Borderline High: 130-159 mg/dL High: 160-189 mg/dL Very High: >189 mg/dL 165 [id number] 166 SEE RESULT BELOW Name: LUEVANOALBIN : [address]: Jennifer Okeefe Acct: [id number] Unit: [id number] AGE: 65 Location: [facility] Re12/27/15 SEX: M Status: DEP ER SPEC: [id number] JOHNNY: 12/27/[address]: Anthony HONG REQ: [id number] RECD: 12/28/15-5889 STATUS: HILDA ALEXANDER DR: Jennifer Brown III, MD _ [facility]: MRSA/SA SSTI, Culture Stain COMMENTS: [id number] Procedure Result Reported Site MRSA/S. aureus SSTI PCR Final 12/28/15- 1516 ML Organism 1 MRSA NEGATIVE Organism 2 S.AUREUS NEGATIVE Wound/Misc Gram Stain Final 12/28/15- 1342 ML 3+ Epithelial Cells 2+ Neutrophils 3+ Gram Positive Cocci 1+ Gram Positive Bacilli Wound/Misc Culture Final 12/30/15- 1202 ML Organism 1 NORMAL ARCENIO * ML - [facility]IN LAB ([facility]) . END OF REPORT * ML=Testing performed at Main Lab DEPARTMENT OF PATHOLOGY, [address] [place] [address] Albin Mario M.D. Director [facility] # [id number] 167 SEE RESULT BELOW Name: ALBIN LUEVANO : [address]: Jennifer Okeefe Acct: [id number] Unit: [id number] AGE: 65 Location: [facility] Re12/27/15 SEX: M Status: DEP ER SPEC: [id number] JOHNNY: 12/27/[address] [facility] [address]: Anthony HONG REQ: [id number] RECD: 12/28/15-1258 STATUS: RES OT DR: Jennifer Brown III, MD _ SOURCE: [facility]: ORDERED: MRSA/SA SSTI, Culture Stain COMMENTS: [id number] Procedure Result Reported Site MRSA/S. aureus SSTI PCR PENDING Wound/Misc Gram Stain Final 12/28/15- 1342 ML 3+ Epithelial Cells 2+ Neutrophils 3+ Gram Positive Cocci 1+ Gram Positive Bacilli Wound/Misc Culture PENDING * ML - MAIN LAB ([facility]) . END OF REPORT * ML=Testing performed at Main Lab DEPARTMENT OF PATHOLOGY, [address] [place] [address] Albin Mario M.D. Director [facility] # [id number] 168 >100 to <200 pg/mL: likely compensated congestive heart failure (CHF) 200 to 400 pg/mL: likely moderate CHF >400 pg/mL: likely moderate to severe CHF 169 Desirable <150 Borderline high 150-199 High 200-499 Very High >500 170 Desirable <200 Borderline high 200-239 High >239 171 Low <40 Desirable: 40-60 High: >60 172 Desirable: <100 mg/dL Near Optimal: 100-129 mg/dL Borderline High: 130-159 mg/dL High: 160-189 mg/dL Very High: >189 mg/dL 173 Unable to calculate due to low microalbumin 174 Because ethnic data is not always readily [...] 15-29 5 Kidney failure <15 (or dialysis) 175 Microalbuminuria in a random sample is defined as: Microalbumin/Creatinine ratio of 30-299 ug/mg. 176 FASTING 177 Because ethnic data is not always readily [...] 15-29 5 Kidney failure <15 (or dialysis) 178 Desirable <150 Borderline high 150-199 High 200-499 Very High >500 179 Desirable <200 Borderline high 200-239 High >239 180 Low <40 Desirable: 40-60 High: >60 181 Desirable <100 Near Optimal 100-129 Borderline high 130-159 High 160-189 Very High >189 182 FASTING 183 Therapeutic target for the treatment of diabetes Mellitus patients is <7% HBA1C, and in selective patients <6.0%.Please refer to [place] [employer] Diabetic care guidelines for further information. 184 RUN DATE: 07/01/12 [facility] LAB LIVE PAGE 1 RUN TIME: [address] [place] [address] Specimen Inquiry Name: ALBIN LUEVANO : [address]: Amanda Davenport MD Acct: [id number] Unit: [id number] AGE: 62 Location: [facility] Re06/28/12 SEX: M Status: DEP ER SPEC: [id number] JOHNNY: 06/28/12-[address] [facility] [address]: Amanda Davenport MD REQ: [id number] RECD: 06/29/12 STATUS: HILDA ALEXANDER DR: Ramez [...] performed at Main Lab DEPARTMENT OF PATHOLOGY, [facility] [place], [place] [address] Albin Mario M.D. Director [facility] Permit #[id number] RUN DATE: 07/01/12 [facility] LAB LIVE PAGE 2 RUN TIME: 942 [facility] [place], [place] [address] Specimen Inquiry Patient: ALBIN LUEVANO [id number] (Continued) Specimen: [id number] Collected: 06/28/12-1749 Received: 06/29/12-1038 (Continued) Procedure Result Verified Site Wound/Misc Culture Final (continued) * These antibiotics are not available in the [facility] Formulary Contact the Microbiology Department for any additional antibiotic reporting. END OF REPORT * ML=Testing performed at Main Lab DEPARTMENT OF PATHOLOGY, [address] [place] [address] Albin Mario M.D. Director [facility] Permit #[id number] 185 Microalbuminuria in a random sample is defined as: Microalbumin/Creatinine ratio of 30-299 ug/mg. 186 CHOLESTEROL INTERPRETATION: Desirable: Less than 200 MG/DL Borderline-High Risk: 200-239 MG/DL High-Risk: 240 MG/DL and over 187 HDL INTERPRETATION: Undesirable: High Risk: Less than 40 MG/DL Desirable: Low Risk: Greater than 60 MG/DL 188 LDL INTERPRETATION: Low Risk Optimal Level: LDL Less than 100 MG/DL Near or Above Optimal: LDL 100-129 MG/DL Borderline High Risk: LDL 130-159 MG/DL High Risk: LDL 160-189 MG/DL Very High Risk: LDL Greater than 189 MG/DL 189 Anion gap measurement may be of limited value in the presence of any alkalosis, especially in a combined acid base disorder. . 190 Because ethnic data is not always readily [...] 15-29 5 Kidney failure <15 (or dialysis) 191 * SERUM LEVELS OF PSA MEASURED USING THE [employer] Intellect ACCESS HYBRITECH IMMUNOASSAY SHOULD NOT BE INTERPRETED ABSOLUTE EVIDENCE OF THE PRESENCE OR ABSENCE OF DISEASE. THE PSA VALUE SHOULD BE USED IN CONJUNCTION WITH OTHER PERTINENT CLINICAL DIAGNOSTIC PROCEDURES. The values obtained with different assay methods or kits cannot be used interchangeably. 192 RUN DATE: 03/09/11 [facility] NMI LIVE PAGE 1 RUN TIME: 1101 Specimen Inquiry RUN USER: INTERFACE Name: ALBIN LUEVANO Accosbaldo#: [id number] Status: ANN MARIE GRECO Re03/07/11 Age/Sex: 61/M Unit#: [id number] Location: [facility] : 48 SPEC #: [id number] JOHNNY: 03/07/11 STATUS: RES REQ #: [id number] RECD: 03/08/[address]: Nayely Ortiz MD SOURCE: WOUND ENTR: 03/08/[address]: Mable PALMA MD, Ramez [facility]: TOE,RIGHT ORDERED: CULT SENS/GS ACT WKST: B 03/09/11 #1 Procedure Result Verified Site > CULTURE SENSITIVITY Preliminary 03/09/11- 1101 ML Organism 1 STAPHYLOCOCCUS AUREUS QUANTITY MANY Organism 2 PSEUDOMONAS SPECIES QUANTITY MODERATE > GRAM STAIN SMEAR Final 03/08/11- 1521 ML POLYS MODERATE SMEAR: MOD GRAM POSITIVE COCCI MOD GRAM NEGATIVE BACILLI - [facility] Permit #[id number] [address] [place] [address] DEPARTMENT OF PATHOLOGY, [address] [place] [address] [facility] Permit #[id number] Rex Xiong M.D. Talent Acquisition Relationship Manager 193 RUN DATE: 03/10/11 [facility] NMI LIVE PAGE 1 RUN TIME: 924 Specimen Inquiry RUN USER: INTERFACE Name: ALBIN LUEVANO Status: ANN MARIE CLI Re03/07/11 Age/Sex: 61/M Unit#: [id number] Location: [facility]. : 48 SPEC #: [id number] JOHNNY: 03/07/11 STATUS: KRISTEN REQ #: [id number] RECD: 03/08/[address]: Nayely Ortiz MD SOURCE: WOUND ENTR: 03/08/11-[address] [facility] [address]: Mable PALMA MD, [facility]RIGHT ORDERED: CULT SENS/GS ACT WKST: B [...] 4 IMIPENEM S <=1 DEPARTMENT OF PATHOLOGY, [address] [place] [address] [facility] Permit #[id number] Albin Mario M.D. Director Mayra Pan M.D. Talent Acquisition Relationship Manager RUN DATE: 03/10/11 [facility] NMI LIVE PAGE 2 RUN TIME: 924 Specimen Inquiry RUN USER: INTERFACE Name: ALBIN LUEVANO Status: DEP CLI Re03/07/11 Age/Sex: 61/M Unit#: [id number] Location: : 48 -- -- CONTINU ED Procedure Result Verified Site CULTURE SENSITIVITY Preliminary (continued) - +These results are deduced according to CLSI guidelines as they are related to tested antimicrobials with almost identical spectrum of activity. *These antibiotics are not available in the [facility] Formulary. Contact the Microbiology Department for any additional antibiotic reporting. *These antibiotics are not available in the [facility] Formulary. Contact the Microbiology Department for any additional antibiotic reporting. > GRAM STAIN SMEAR Final 03/08/11- 1521 ML POLYS MODERATE SMEAR: MOD GRAM POSITIVE COCCI MOD GRAM NEGATIVE BACILLI - [facility] Permit #[id number] [address] [place] [address] DEPARTMENT OF PATHOLOGY, [address] [place] [address] [facility] Permit #[id number] Rex Xiong M.D. Talent Acquisition Relationship Manager 194 RUN DATE: 03/10/11 [facility] NMI LIVE PAGE 1 RUN TIME: 1439 Specimen Inquiry RUN USER: INTERFACE Name: ALBIN LUEVANO Status: DEP CLI Re03/07/11 Age/Sex: 61/M Unit#: [id number] Location: : 48 SPEC #: [id number] JOHNNY: 03/07/11 STATUS: RES REQ #: [id number] RECD: 03/08/11-[address]: Nayely Ortiz MD SOURCE: WOUND ENTR: 03/08/11-[address]: Mable PALMA MD, Ramez [facility]: TOE,RIGHT ORDERED: CULT SENS/GS Procedure Result Verified [...] 4 IMIPENEM S <=1 DEPARTMENT OF PATHOLOGY, [address] [place] [address] [facility] Permit #[id number] Rex Xiong M.D. Talent Acquisition Relationship Manager RUN DATE: 03/10/11 [facility] NMI LIVE PAGE 2 RUN TIME: 4916 Specimen Inquiry RUN USER: INTERFACE Name: ALBIN LUEVANO Status: ANN MARIE CLI Re03/07/11 Age/Sex: 61/M Unit#: [id number] Location: : 48 -- -- CONTINU ED Procedure Result Verified Site CULTURE SENSITIVITY Preliminary (continued) - +These results are deduced according to CLSI guidelines as they are related to tested antimicrobials with almost identical spectrum of activity. *These antibiotics are not available in the [facility] Formulary. Contact the Microbiology Department for any additional antibiotic reporting. *These antibiotics are not available in the [facility] Formulary. Contact the Microbiology Department for any additional antibiotic reporting. > GRAM STAIN SMEAR Final 03/08/11- 1521 ML POLYS MODERATE SMEAR: MOD GRAM POSITIVE COCCI MOD GRAM NEGATIVE BACILLI - [facility] Permit #[id number] [facility] [place] [address] DEPARTMENT OF PATHOLOGY, [facility] [place], [place] [address] [facility] Permit #[id number] Albin Mario M.D. Director Mayra Pan M.D. Talent Acquisition Relationship Manager 195 Anion gap measurement may be of limited value in the presence of any alkalosis, especially in a combined acid base disorder. . 196 A metabolite of Naproxen, O-desmethylnaproxen, has been shown to interfere with the Jendrassik-Bassem method for measuring total bilirubin. Samples from patients who have taken Naproxen have shown spurious elevation in total bilirubin levels. 197 Because ethnic data is not always readily [...] 15-29 5 Kidney failure <15 (or dialysis) 198 CHOLESTEROL INTERPRETATION: Desirable: Less than 200 MG/DL Borderline-High Risk: 200-239 MG/DL High-Risk: 240 MG/DL and over 199 HDL INTERPRETATION: Undesirable: High Risk: Less than 40 MG/DL Desirable: Low Risk: Greater than 60 MG/DL 200 LDL INTERPRETATION: Low Risk Optimal Level: LDL Less than 100 MG/DL Near or Above Optimal: LDL 100-129 MG/DL Borderline High Risk: LDL 130-159 MG/DL High Risk: LDL 160-189 MG/DL Very High Risk: LDL Greater than 189 MG/DL [address] 1 202 * SERUM LEVELS OF PSA MEASURED USING [...] indicator of recurrent or residual disease. . 203 ----- RUN DATE: 11/27/08 [facility] NMI LIVE PAGE 1 RUN TIME: 1407 Specimen Inquiry RUN USER: INTERFACE -- Name: ALLISONALBIN Status: REG REF Re11/23/08 Age/Sex: 58/M Unit#: [id number] Location: [address] [place] [address].O.B. : 46 -- Specimen: [id number] [id number] Spec Date: 11/23/[address]: Varun [...] 11/27/08 1407 -- -- DEPARTMENT OF PATHOLOGY, [address] [place] [address] [facility] Permit #[id number] Albin Mario M.D. Director Mayra Pan M.D. Warehouse Associate Driver Dir екатерина -- 204 Anion gap measurement may be of limited value in the presence of any alkalosis, especially in a combined acid base disorder. . 205 Note change in reference range as of 12/01/07. The change was based on recommendations from the [place] [employer]. 206 Please note change in reference range effective 07 . 207 A metabolite of Naproxen, O-desmethylnaproxen, has been shown to interfere with the Jendrassik-Grandfield method for measuring total bilirubin. Samples from patients who have taken Naproxen have shown spurious elevation in total bilirubin levels. 208 Because ethnic data is not always readily [...] 15-29 5 Kidney failure <15 (or dialysis) 209 CHOLESTEROL INTERPRETATION: Desirable: Less than 200 MG/DL Borderline-High Risk: 200-239 MG/DL High-Risk: 240 MG/DL and over 210 HDL INTERPRETATION: Undesirable: High Risk: Less than 40 MG/DL Desirable: Low Risk: Greater than 60 MG/DL 211 LDL INTERPRETATION: Low Risk Optimal Level: LDL Less than 100 MG/DL Near or Above Optimal: LDL 100-129 MG/DL Borderline High Risk: LDL 130-159 MG/DL High Risk: LDL 160-189 MG/DL Very High Risk: LDL Greater than 189 MG/DL 212 THERAPEUTIC TARGET FOR THE TREATMENT OF DIABETES MELLITUS PATIENTS IS <7% HBA1C, AND IN SELECTIVE PATIENTS <6.0%. PLEASE REFER TO [place] [employer] DIABETIC CARE GUIDELINES FOR FURTHER INFORMATION. 213 Anion gap measurement may be of limited value in the presence of any alkalosis, especially in a combined acid base disorder. . 214 Note change in reference range as of 12/01/07. The change was based on recommendations from the [place] [employer]. 215 Please note change in reference range effective 07 . 216 The detection limit for ETHANOL is 10.0 mg/dl . Values less than 10.0 mg/dl cannot be accurately measured. . 217 Lymphopenia % 218 Anion gap measurement may be of limited value in the presence of any alkalosis, especially in a combined acid base disorder. . 219 Note change in reference range as of 12/01/07. The change was based on recommendations from the [place] [employer]. 220 Please note change in reference range effective 07 . 221 RESULTS VERIFIED BY REPEAT ANALYSIS ON THE SAME SAMPLE. REPEATED RESULT IS:557 VERBAL TO ELÍAS BY NITIN at 1701 on 07/25/08. Results read back accurately. 222 RESULTS VERIFIED BY REPEAT ANALYSIS ON THE SAME SAMPLE. REPEATED RESULT IS:1022 VERBAL TO ELÍAS BY NITIN at 1701 on 07/25/08. Results read back accurately. 223 New Reference Range and Interpretation effective 01/13/02 TnI (ng/ml) INTERPRETATION <0.06 ng/ml NOT SUPPORTIVE OF DIAGNOSIS OF HI 0.06 - 0.50 ng/ml INDETERMINATE: SUGGEST SERIAL STUDIES IF CLINICALLY INDICATED. > 0.5 ng/ml CONSISTENT WITH DIAGNOSIS OF HI . 224 * SERUM LEVELS OF PSA MEASURED USING [...] indicator of recurrent or residual disease. . 225 PATIENT MAY HAVE RESULTS PER DOCTOR'S AUTHORIZATION. Questions regarding this report should be directed to your doctor. 226 Anion gap measurement may be of limited value in the presence of any alkalosis, especially in a combined acid base disorder. . 227 Note change in reference range as of 12/01/07. The change was based on recommendations from the [place] [employer]. 228 Please note change in reference range effective 07 . 229 Anion gap measurement may be of limited value in the presence of any alkalosis, especially in a combined acid base disorder. . 230 Note change in reference range as of 12/01/07. The change was based on recommendations from the [place] [employer]. 231 Please note change in reference range effective 07 . 232 The detection limit for ETHANOL is 10.0 mg/dl . Values less than 10.0 mg/dl cannot be accurately measured. . 233 PLEASE NOTE NEW REFERENCE RANGES. 234 THERAPEUTIC TARGET FOR THE TREATMENT OF DIABETES MELLITUS PATIENTS IS <7% HBA1C, AND IN SELECTIVE PATIENTS <6.0%. PLEASE REFER TO [place] [employer] DIABETIC CARE GUIDELINES FOR FURTHER INFORMATION. 235 JOAO VALUE=2.01 ( OF 03/18/07 Recommended INR for Patients on Oral Anticoagulants Prophylaxis 2.0 - 3.0 Treatment of thrombosis 2.0 - 3.0 Prevention of embolism 2.0 - 3.0 Prevention of embolism from prosthetic heart valves 2.5 - 3.5 236 PLEASE NOTE NEW REFERENCE RANGE EFFECTIVE 07. 237 Lymphopenia % 238 Anion gap measurement may be of limited value in the presence of any alkalosis, especially in a combined acid base disorder. . 239 Note change in reference range as of 12/01/07. The change was based on recommendations from the [place] [employer]. 240 Please note change in reference range effective 07 . 241 New Reference Range and Interpretation effective 01/13/02 TnI (ng/ml) INTERPRETATION <0.06 ng/ml NOT SUPPORTIVE OF DIAGNOSIS OF HI 0.06 - 0.50 ng/ml INDETERMINATE: SUGGEST SERIAL STUDIES IF CLINICALLY INDICATED. > 0.5 ng/ml CONSISTENT WITH DIAGNOSIS OF HI . 242 THE URINE SPECIMEN WAS TESTED AT THE LISTED CUTOFFS: DRUG CLASS TEST LEVEL (NG/ML) AMPHETAMINES 300 BARBITUATES 200 BENZODIAZEPINE METABOLITES 200 COCAINE METABOLITES 300 CANNABINOIDS 25 OPIATES 200 PCP 25 THIS IS A SCREENING PROCEDURE. POSITIVE RESULTS ARE NOT CONFIRMED. SPECIMEN WAS RECEIVED WITHOUT CHAIN OF CUSTODY. RESULTS SHOULD BE USED FOR MEDICAL PURPOSES ONLY. . 243 Anion gap measurement may be of limited value in the presence of any alkalosis, especially in a combined acid base disorder. . 244 Please note change in reference range effective 07 . 245 VERBAL TO GRAZYNA IN ER BY CELIA at 1613 on 10/19/07. Results read back accurately. RESULTS VERIFIED BY REPEAT ANALYSIS ON THE SAME SAMPLE. REPEATED RESULT IS:354.6/R The detection limit for ETHANOL is 10.0 mg/dl . Values less than 10.0 mg/dl cannot be accurately measured. . 246 OR 10/11/07 247 Anion gap measurement may be of limited value in the presence of any alkalosis, especially in a combined acid base disorder. . 248 Please note change in reference range effective 07 . 249 Anion gap measurement may be of limited value in the presence of any alkalosis, especially in a combined acid base disorder. . 250 Please note change in reference range effective 07 . 251 Anion gap measurement may be of limited value in the presence of any alkalosis, especially in a combined acid base disorder. . 252 Classification: Desirable . 253 CALCULATED LDL APPROXIMATES THE VALUE OF A DIRECT LDL MEASUREMENT. Classification: Optimal Level . 254 * SERUM LEVELS OF PSA MEASURED USING THE [employer] ACCESS HYBRITECH IMMUNOASSAY SHOULD NOT BE INTERPRETED ABSOLUTE EVIDENCE OF THE PRESENCE OR ABSENCE OF DISEASE. THE PSA VALUE SHOULD BE USED IN CONJUNCTION WITH OTHER PERTINENT CLINICAL DIAGNOSTIC PROCEDURES. Procedures Date Code Description Status 04/06/2018 [id number] Diabetic Retinal Eye Exam Completed 03/21/2018 71690 EKG Tracing & Interpretation Completed 02/06/2018 03961 Sleep Study Unattended,HRT Rate,Oxygen Sat,Resp Completed Effort/Airflow 12/22/2017 37628 ECHO Transthorasic Realtime 2D W Doppler & Color Flow Completed Hosp 12/20/2017 83237 Removal Devitalized Tissue Wound Greater Than 20 Completed Square CM 12/20/2017 41836 Removal Devitalization Tissue Wound Less Than Equal 20 Completed Square CM 12/17/2017 05690 Removal Devitalization Tissue Wound Less Than Equal 20 Completed Square CM 12/10/2017 35005 Application Skin Graft Face,Scalp,Eyelids,Mouth, Neck Completed Up To 100CM 12/03/2017 00210 Removal Devitalization Tissue Wound Less Than Equal 20 Completed Square CM 11/26/2017 09647 Hyperbaric Oxygen Therapy By Physician Completed 11/26/2017 95500 Removal Devitalization Tissue Wound Less Than Equal 20 Completed Square CM 11/25/2017 22263 Hyperbaric Oxygen Therapy By Physician Completed 11/23/2017 61169 Apply Total Contact Leg Cast Completed 11/23/2017 02492 Hyperbaric Oxygen Therapy By Physician Completed 11/18/2017 29930 Hyperbaric Oxygen Therapy By Physician Completed 11/17/2017 60919 Hyperbaric Oxygen Therapy By Physician Completed 11/16/2017 58815 Hyperbaric Oxygen Therapy By Physician Completed 11/12/2017 33234 Hyperbaric Oxygen Therapy By Physician Completed 11/12/2017 29238 Removal Devitalization Tissue Wound Less Than Equal 20 Completed Square CM 11/11/2017 78963 Hyperbaric Oxygen Therapy By Physician Completed 11/10/2017 06471 Hyperbaric Oxygen Therapy By Physician Completed 11/09/2017 16869 Hyperbaric Oxygen Therapy By Physician Completed 11/05/2017 22819 Hyperbaric Oxygen Therapy By Physician Completed 11/04/2017 47827 Hyperbaric Oxygen Therapy By Physician Completed 11/03/2017 63656 Hyperbaric Oxygen Therapy By Physician Completed 11/02/2017 72770 Hyperbaric Oxygen Therapy By Physician Completed 10/29/2017 69017 Removal Devitalization Tissue Wound Less Than Equal 20 Completed Square CM 10/28/2017 62529 Hyperbaric Oxygen Therapy By Physician Completed 10/27/2017 91123 Hyperbaric Oxygen Therapy By Physician Completed 10/26/2017 44005 Hyperbaric Oxygen Therapy By Physician Completed 10/22/2017 76962 Hyperbaric Oxygen Therapy By Physician Completed 10/22/2017 73330 Removal Devitalization Tissue Wound Less Than Equal 20 Completed Square CM 10/21/2017 21744 Hyperbaric Oxygen Therapy By Physician Completed 10/20/2017 37001 Hyperbaric Oxygen Therapy By Physician Completed 10/19/2017 85586 Hyperbaric Oxygen Therapy By Physician Completed 10/15/2017 81485 Hyperbaric Oxygen Therapy By Physician Completed 10/14/2017 00684 Hyperbaric Oxygen Therapy By Physician Completed 10/14/2017 65868 Removal Devitalization Tissue Wound Less Than Equal 20 Completed Square CM 10/12/2017 61992 Hyperbaric Oxygen Therapy By Physician Completed 10/11/2017 01027 EKG, Interpretation Only Completed 10/08/2017 10499 Apply Total Contact Leg Cast Completed 10/01/2017 07437 Apply Total Contact Leg Cast Completed 09/17/2017 40790 Application Skin Graft Face,Scalp,Eyelids,Mouth, Neck Completed Up To 100CM 09/10/2017 01702 Application Skin Substitute Graft Trunk,Arms Lets Up Completed To 100 SQ CM 08/27/2017 76112 Removal Devitalized Tissue Wound Greater Than 20 Completed Square CM 08/27/2017 45720 Removal Devitalization Tissue Wound Less Than Equal 20 Completed Square CM 08/13/2017 36556 Hyperbaric Oxygen Therapy By Physician Completed 08/12/2017 65626 Hyperbaric Oxygen Therapy By Physician Completed 08/11/2017 91953 Hyperbaric Oxygen Therapy By Physician Completed 08/06/2017 94886 Hyperbaric Oxygen Therapy By Physician Completed 08/04/2017 45868 Hyperbaric Oxygen Therapy By Physician Completed 08/03/2017 40690 Hyperbaric Oxygen Therapy By Physician Completed 08/02/2017 82153 Hyperbaric Oxygen Therapy By Physician Completed 07/30/2017 92623 Hyperbaric Oxygen Therapy By Physician Completed 07/29/2017 76751 Hyperbaric Oxygen Therapy By Physician Completed 07/28/2017 45765 Hyperbaric Oxygen Therapy By Physician Completed 07/27/2017 59626 Hyperbaric Oxygen Therapy By Physician Completed 07/23/2017 46528 Debridement Muscle/Fascia,Epidermis/Dermis/Tissue,1St Completed 20 SQ CM 07/23/2017 15571 Debridement Skin,& sq Tissue Completed 07/22/2017 65379 Hyperbaric Oxygen Therapy By Physician Completed 07/21/2017 06374 Hyperbaric Oxygen Therapy By Physician Completed 07/20/2017 86999 Hyperbaric Oxygen Therapy By Physician Completed 07/19/2017 52151 Hyperbaric Oxygen Therapy By Physician Completed 07/15/2017 72765 Hyperbaric Oxygen Therapy By Physician Completed 07/14/2017 06071 Hyperbaric Oxygen Therapy By Physician Completed 07/13/2017 54233 Hyperbaric Oxygen Therapy By Physician Completed 07/12/2017 70069 Hyperbaric Oxygen Therapy By Physician Completed 07/02/2017 98836 Hyperbaric Oxygen Therapy By Physician Completed 07/01/2017 17810 Hyperbaric Oxygen Therapy By Physician Completed 06/30/2017 72909 Hyperbaric Oxygen Therapy By Physician Completed 06/29/2017 86927 Hyperbaric Oxygen Therapy By Physician Completed 06/28/2017 50607 Hyperbaric Oxygen Therapy By Physician Completed 06/28/2017 92466 Hyperbaric Oxygen Therapy By Physician Completed 06/25/2017 97778 Hyperbaric Oxygen Therapy By Physician Completed 06/24/2017 94458 Debridement Skin,& sq Tissue Completed 06/24/2017 30096 Hyperbaric Oxygen Therapy By Physician Completed 06/24/2017 13451 Removal Devitalization Tissue Wound Less Than Equal 20 Completed Square CM 06/23/2017 18496 Hyperbaric Oxygen Therapy By Physician Completed 06/23/2017 60162 Hyperbaric Oxygen Therapy By Physician Completed 06/18/2017 90298 Debridement Skin, Subcutaneous Tissue & Muscle Completed 06/11/2017 41261 Apply Total Contact Leg Cast Completed 06/04/2017 87906 Removal Devitalization Tissue Wound Less Than Equal 20 Completed Square CM 06/04/2017 09567 Debridement Muscle/Fascia,Epidermis/Dermis/Tissue,1St Completed 20 SQ CM 06/04/2017 23414 Debridement Skin,& sq Tissue Completed 05/28/2017 88619 Debridement Completed Muscle/Fascia,Epidermis/Dermis/Tissue,Addtl 20 SQ CM 05/28/2017 18096 Debridement Skin, Subcutaneous Tissue & Muscle Completed 05/21/2017 99964 Debridement Skin, Subcutaneous Tissue & Muscle Completed 05/02/2017 56899 ECHO Transthorasic Realtime 2D W Doppler & Color Flow Completed Hosp 04/13/2017 07335 Amputation Metatarsal W/Toe Completed 03/29/2017 66882 EKG Tracing & Interpretation Completed 01/25/2017 33717318 Colonoscopy Completed 11/12/2016 62197 EKG Tracing & Interpretation Completed 04/15/2016 57553 Holter Monitor Review (24 hr)dr review & interp only Completed 04/14/2016 85873 ECG Monitor/Recording W/Visual Superimposition Completed Scanning 03/31/2016 06988 EKG Tracing & Interpretation Completed 03/23/2016 61773 Sleep Study Unattended,HRT Rate,Oxygen Sat,Resp Completed Effort/Airflow 03/23/2016 69281 ECHO Transthoracic, Real-Time 2D With Doppler And Completed Color Flow 02/26/2016 64602 EKG Tracing & Interpretation Completed 07/15/2012 063926163 Diabetic Retinal Eye Exam Completed 11/23/2008 64326943 Colonoscopy Completed 12/09/2007 64310 Treadmill Interp/Report Only Completed 12/09/2007 26711 Treadmill Interp/Report Only Completed 12/09/2007 90283 Stress Test Supervsn W/Out I/R Completed 12/06/2007 92543 EKG Tracing & Interpretation Completed 12/06/2007 66010 EKG Tracing & Interpretation Completed Encounters Type Date Location Provider Dx Diagnosis Office Visit 03/22/2018 Orthopedic Marlon Buckley, M25.372 Other 2:45p Services Of Alexey BADILLO instability, left ankle 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 Office Visit 03/21/2018 2:40p [facility] Steffen Keller R60.0 Localized edema Of Aws Developer Garcia, DO FAC G47.33 Obstructive sleep apnea (adult) (pediatric) E11.621 Type 2 diabetes mellitus with foot ulcer I10 Essential (primary) hypertension I48.91 Unspecified atrial fibrillation E66.01 Morbid (severe) obesity due to excess calories F10.20 Alcohol dependence, uncomplicated Office Visit 03/15/2018 1:45p [facility] Lazaro Shah E11.610 Type 2 diabetes Center AT [facility] Rex Casarez mellitus w diabetic neuropathic arthropathy Office Visit 01/26/2018 2:45p Orthopedic Marlon Buckley L97.429 Non-prs chronic Services Of ulcer of left BelkisMAmy heel and midfoot w unsp severt M25.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, left ankle E11.621 Type 2 diabetes mellitus with foot ulcer Office Visit 01/21/2018 10:15a Wound Care Steffen Rojas, 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 Center AT [facility] , FACS of left heel, stage 4 S81.802A Unspecified open wound, left lower leg, initial encounter E08.621 Diabetes mellitus due to underlying condition w foot ulcer E66.01 Morbid (severe) obesity due to excess calories E11.621 Type 2 diabetes mellitus with foot ulcer M86.271 Subacute osteomyelitis, right ankle and foot Office Visit 01/10/2018 11:00a Orthopedic Marlon Buckley, L97.429 Non-prs Services Of chronic agustin C.M.AMartita of left heel and midfoot w unsp severt Office Visit 01/04/2018 8:30a [facility] Cinthia M25.372 Other MD Wanda instability, left ankle 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 E11.621 Type 2 diabetes mellitus with foot ulcer I48.91 Unspecified atrial fibrillation D64.9 Anemia, unspecified Office Visit 12/29/2017 11:41a Orthopedic Gertrude M25.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 , Services Of Rex Hankins left ankle C.MMartitaAMartita M25.572 Pain in left ankle and joints of left foot Office Visit 12/28/2017 [facility] I48.91 Unspecified 2:06p Asscecille salvador NP atrial Hospitalists fibrillation D64.9 Anemia, unspecified L97.429 Non-prs chronic ulcer of left heel and midfoot w [facility] severt E11.621 Type 2 diabetes mellitus with foot ulcer Office Visit 12/27[facility]2017 [facility] M25.572 Pain in left Infectious Rex Barnhart ankle and Diseases joints of left foot I87.2 Venous insufficiency (chronic) (peripheral) L89.529 Pressure ulcer of left ankle, unspecified stage Office Visit 12/27/2017 [facility] I48.91 Unspecified 2:06p cecille Dockery NP atrial Hospitalists fibrillation D64.9 Anemia, unspecified E11.621 Type 2 diabetes mellitus with foot ulcer L97.429 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 atrial Hospitalists fibrillation D64.9 Anemia, unspecified L97.429 Non-prs chronic ulcer of left heel and midfoot w [facility] severt E11.621 Type 2 diabetes mellitus with foot ulcer Office Visit 12/25/2017 [facility] D64.9 Anemia, 2:05p cecille Dockery M.D. unspecified Hospitalists I48.91 Unspecified atrial fibrillation L97.429 Non-prs chronic ulcer of left heel and midfoot w [facility] severt E11.621 Type 2 diabetes mellitus with foot ulcer Office Visit 12/24/2017 [facility] D64.9 Anemia, 2:05p cecille Dockery M.D. 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 ankle and Diseases joints of left foot M86.672 Other chronic osteomyelitis, left ankle and foot M86.671 Other chronic osteomyelitis, right ankle and foot I87.2 Venous insufficiency (chronic) (peripheral) Office Visit 12/22/2017 [facility] D64.9 Anemia, 2:04p Asscecille salvador M.D. 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 Office Visit 12/21/2017 [facility] Debi I48.91 Unspecified atrial 2:04p Assoccecille, DO fibrillation Hospitalists R06.00 Dyspnea, unspecified M86.672 Other chronic osteomyelitis, left ankle and foot M79.672 Pain in left foot L97.429 Non-prs chronic ulcer of left heel and midfoot w unsp severt E11.621 Type 2 diabetes mellitus with foot ulcer L97.229 Non-pressure chronic ulcer of left calf with unsp severity E11.622 Type 2 diabetes mellitus with other skin ulcer D64.9 Anemia, unspecified Office Visit 12/20/2017 [facility] And Aretha G47.33 Obstructive sleep 11:00a Sleep Services Of PAUL Oliva, RN, apnea (adult) [facility] MARKET PRESIDENT-BC (pediatric) R09.02 Hypoxemia E66.01 Morbid (severe) obesity due to excess calories Z68.42 Body mass index (BMI) 45.0-49.9, adult Office Visit 12/09/2017 4:00p [facility] Internal Ramez Lopez E11.69 Type 2 diabetes Violetta Akins M.D. mellitus with [place] other specified complication M86.271 Subacute osteomyelitis, right ankle and foot I10 Essential (primary) hypertension I48.91 Unspecified atrial fibrillation I87.2 Venous insufficiency (chronic) (peripheral) G47.33 Obstructive sleep apnea (adult) (pediatric) E78.00 Pure hypercholesterolemia, unspecified F41.9 Anxiety disorder, unspecified Office Visit 11/17/2017 9:15a Wound Care Dima Keller 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 Center AT [facility] MD Maria Ines of left heel, stage 4 M86.271 Subacute osteomyelitis, right ankle and foot Office Visit 10/26/2017 [facility] [place] M86.671 Other chronic 12:52p For Patricia Barnhart M.D. 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 [place] 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 Infectious Rex Barnhart of left heel, Diseases stage 4 E11.621 Type 2 diabetes mellitus with foot ulcer M86.171 Other acute osteomyelitis, right ankle and foot E11.69 Type 2 diabetes mellitus with other specified complication Office Visit 09/22/2017 1:45p Wound Care Mayra Arita 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 Center AT [facility] MD Ger of left heel, stage 4 Office Visit 08/24/2017 1:30p Wound Care Lazaro Shah E11.621 Type 2 diabetes Center AT [facility] Rex Casarez mellitus with foot ulcer 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 of left heel, stage 4 Office Visit 08/20/2017 10:00a Wound Care Steffen Rojas 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 Center AT [facility] JOSEFINA BADILLO of left heel, stage 4 L89.610 Pressure ulcer of right heel, unstageable E08.621 Diabetes mellitus due to underlying condition w foot ulcer M86.172 Other acute osteomyelitis, left ankle and foot E66.01 Morbid (severe) obesity due to excess calories T81.31xD Disruption of external operation (surgical) wound, NEC, subs E11.621 Type 2 diabetes mellitus with foot ulcer 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 Office Visit 08/17/2017 10:15a Wound Care Lazaro Shah E11.621 Type 2 diabetes Center AT [facility] Rex Casarez mellitus with foot ulcer 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 of left heel, stage 4 M86.172 Other acute osteomyelitis, left ankle and foot E66.01 Morbid (severe) obesity due to excess calories Office Visit 08/06/2017 11:00a Wound Care Jevon Weller.624 Pressure ulcer Center AT [facility] JOSEFINA BADILLO of left heel, stage 4 Office Visit 07/30/2017 11:00a Wound Care Jevon Weller.624 Pressure ulcer Center AT [facility] JOSEFINA BADILLO of left heel, stage 4 L89.610 Pressure ulcer of right heel, unstageable E08.621 Diabetes mellitus due to underlying condition w foot ulcer M86.172 Other acute osteomyelitis, left ankle and foot E66.01 Morbid (severe) obesity due to excess calories T81.31xD Disruption of external operation (surgical) wound, NEC, subs E11.621 Type 2 diabetes mellitus with foot ulcer 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 Office Visit 07/02/2017 1:30p Wound Care Lazaro Vazquez89.624 Pressure ulcer Center AT [facility] Rex Casarez of left heel, stage 4 E11.621 Type 2 diabetes mellitus with foot ulcer E66.01 Morbid (severe) obesity due to excess calories Office Visit 06/29/2017 12:45p Wound Care Lazaro Vazquez89.624 Pressure ulcer Center AT [facility] Rex Casarez of left heel, stage 4 L89.610 Pressure ulcer of right heel, unstageable E11.621 Type 2 diabetes mellitus with foot ulcer Office Visit 06/28/2017 1:30p Wound Care Aretha Oliva, T81.31xA Disruption of Center AT [facility] PAUL RN, MARKET PRESIDENT-BC external operation (surgical) wound, NEC, init L89.622 Pressure ulcer of left heel, stage 2 S81.801A Unspecified open wound, right lower leg, initial encounter M86.172 Other acute osteomyelitis, left ankle and foot Office Visit 06/23/2017 [facility] Mayra Juan J Foster, 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 2:00p AT [facility] MD of left heel, stage 4 Office Visit 05/11/2017 [facility] L89.622 Pressure ulcer 9:36a Assoc,cecille Valle, SURGERY CONSULTANT of left heel, Hospitalists stage 2 L03.116 Cellulitis of left lower limb F10.239 Alcohol dependence with withdrawal, unspecified J96.01 Acute respiratory failure with hypoxia Office Visit 05/10/2017 [facility] L89.622 Pressure ulcer 9:33a Assoc,cecille Valle, SURGERY CONSULTANT of left heel, Hospitalists stage 2 L03.116 Cellulitis of left lower limb F10.239 Alcohol dependence with withdrawal, unspecified J96.01 Acute respiratory failure with hypoxia Office Visit 05/09/2017 9:31a [facility] [place] L89.622 Pressure ulcer Assoc,cecille Payne M.D.,FACP of left heel, Hospitalists stage 2 L03.116 Cellulitis of left lower limb F10.239 Alcohol dependence with withdrawal, unspecified Office Visit 05/08/2017 9:23a [facility] [place] L89.622 Pressure ulcer Assoc,cecille Payne M.D.,FACP of left heel, Hospitalists stage 2 J96.01 Acute respiratory failure with hypoxia L03.116 Cellulitis of left lower limb Office [facility]/07[facility]2017 [facility] respiratory Assoc,eccille Arguelles D.O. failure with Hospitalists hypoxia L03.116 Cellulitis of left lower limb F10.239 Alcohol dependence with withdrawal, unspecified L89.622 Pressure ulcer of left heel, stage 2 Office Visit 05/06/2017 9[facility]a [facility].01 Acute respiratory Assoc,cecille Arguelles D.O. failure with Hospitalists hypoxia L03.116 Cellulitis of left lower limb F10.239 Alcohol dependence with withdrawal, unspecified L89.622 Pressure ulcer of left heel, stage 2 Office Visit 05/05/2017 9:19a [facility] J[facility].01 Acute respiratory Assoc,cecille Arguelles D.O. failure with Hospitalists hypoxia L03.116 Cellulitis of left lower limb F10.239 Alcohol dependence with withdrawal, unspecified L89.622 Pressure ulcer of left heel, stage 2 Office Visit 05/04/2017 9:17a [facility] J96.01 Acute respiratory Assoc,cecille Arguelles D.O. failure with Hospitalists hypoxia L03.116 Cellulitis of left lower limb F10.239 Alcohol dependence with withdrawal, unspecified L89.622 Pressure ulcer of left heel, stage 2 Office Visit 05/03/2017 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 failure with Hospitalists hypoxia L03.116 Cellulitis of left lower limb F10.239 Alcohol dependence with withdrawal, unspecified L89.622 Pressure ulcer of left heel, stage 2 Office Visit 05/02/2017 9:12a [facility] J[facility].01 Acute respiratory Assoc,cecille Arguelles D.O. failure with Hospitalists hypoxia L03.116 Cellulitis of left lower limb F10.239 Alcohol dependence with withdrawal, unspecified L89.622 Pressure ulcer of left heel, stage 2 Office Visit 05/01/2017 9:10a [facility] Lydia L03.116 Cellulitis of Assoc,cecille Arguelles D.O. left lower limb Hospitalists L89.622 Pressure ulcer of left heel, stage 2 F10.10 Alcohol abuse, uncomplicated I48.0 Paroxysmal atrial fibrillation Office Visit 04/30/2017 8:00a [facility] Jose R L03.116 Cellulitis of Assoc,cecille Pereira M.D. left lower limb Hospitalists L89.622 Pressure ulcer of left heel, stage 2 F10.10 Alcohol abuse, uncomplicated I48.0 Paroxysmal atrial fibrillation Office Visit 04/12/2017 [facility] Eva M86.172 Other acute 9:55a Assoc,pc Nichol, SURGERY CONSULTANT osteomyelitis, left Hospitalists ankle and foot L97.509 Non-pressure chronic ulcer oth prt unsp foot w unsp severity E11.621 Type 2 diabetes mellitus with foot ulcer E66.01 Morbid (severe) obesity due to excess calories Office Visit 04/12/2017 Surgical Steffen Guerrero M86.172 Other acute 7:00a [facility] MD, osteomyelitis, left FACS ankle and foot Office Visit 04/11/2017 [facility] Riky M86.172 Other acute 9:53a Assoc,pc Stallone, osteomyelitis, left Hospitalists M.DMartita ankle and foot L97.509 Non-pressure chronic ulcer oth prt unsp foot w unsp severity E11.621 Type 2 diabetes mellitus with foot ulcer E66.01 Morbid (severe) obesity due to excess calories Office Visit 03/29/2017 [facility] Steffen Keller Z01.810 Encounter for 4:00p Cardiology Of Garcia, DO preprocedural [facility] cardiovascular examination I10 Essential (primary) hypertension E11.9 Type 2 diabetes mellitus without complications R60.0 Localized edema E66.8 Other obesity I48.91 Unspecified atrial fibrillation Office Visit 11/12/2016 4:00p [facility] Steffen S. I48.91 Unspecified atrial Of [place] Clementeno, DO fibrillation FACC I10 Essential (primary) hypertension G47.9 Sleep disorder, unspecified E11.9 Type 2 diabetes mellitus without complications Office Visit 08/10/2016 3:10p [facility] Internal Nurse Visit I10 Essential ( primary) Medicine - C hypertension [place] Office Visit 07/10/2016 4:00p [facility] Steffen S. I48.91 Unspecified atrial Of [place] Clementeno, DO fibrillation FACC G47.9 Sleep disorder, unspecified I10 Essential (primary) hypertension Office Visit 03/31/2016 4:00p [facility] Steffen S. I48.91 Unspecified atrial Of [place] Garcia, DO fibrillation FACC E66.8 Other obesity I10 Essential (primary) hypertension G47.9 Sleep disorder, unspecified E78.00 Pure hypercholesterolemia, unspecified Office Visit 03/04/2016 [facility] Internal Ramez Lopez I48.91 Unspecified atrial 4:00p Violetta Akins M.D. fibrillation [place] Office Visit 02/26/2016 [facility] I48.91 Unspecified atrial 9:15a Assoc,pc Marzulla-Dulf fibrillation Hospitalists er, [place] E11.9 Type 2 diabetes mellitus without complications E66.01 Morbid (severe) obesity due to excess calories I10 Essential (primary) hypertension Office Visit 02/26/2016 1:00p [facility] Internal Ramez Lopez I48.91 Unspecified atrial Violetta Akins M.D. fibrillation [place] E11.9 Type 2 diabetes mellitus without complications R09.02 Hypoxemia Office Visit 10/24/2015 2:45p Pulmonology And [place] G47.9 Sleep disorder, Sleep Services Of MD Marcel unspecified [employer] E66.01 Morbid (severe) obesity due to excess calories R09.02 Hypoxemia Office Visit 05/28/2015 2:40p [facility] Internal Ramez Lopez E11.9 Type 2 diabetes Violetta Akins M.D. mellitus without [place] complications I10 Essential (primary) hypertension E78.0 Pure hypercholesterolemia F41.3 Other mixed anxiety disorders Z23 Encounter for immunization Office Visit 11/20/2014 3:20p [facility] Internal Ramez Lopez 707.15 Ulcer Of Violetta Akins M.D. Other Part Of [place] Foot Office Visit 09/25/2014 4:00p [facility] Internal Ramez Lopez 782.3 Edema Violetta Aikns M.D. [place] 250.00 Diabetes Mellitus W/O Compl Type II Or Unspec Controlled 401.1 Hypertension Benign 272.0 Hypercholesterolemia Pure 300.09 Anxiety States Other V03.82 Streptococcus Pneumoniae Vaccination Spec Other Office Visit 10/24/2013 2:00p [facility] Internal Ramez Lopez 729.5 Pain In Limb Violetta Akins M.D. [place] Office Visit 02/06/2013 3:40p [facility] Internal Ramez Lopez 465.9 URI Upper Violetta Akins M.D. Respiratory [place] Infections Acute Unspec Sites 250.00 Diabetes Mellitus W/O Compl Type II Or Unspec Controlled Office Visit 06/30/2012 4:00p [facility] Internal Ramez Lopez 707.19 Ulcer Petr Akins M.D. Other Part Of [place] Lower Limb 459.81 Venous Insufficiency (Peripheral) Unspec Office Visit 03/31/2012 1:00p [employer] Internal Caitlyn Karen, 250.00 Diabetes Medicine - N.P. Mellitus W/O [place] Compl Type II Or Unspec Controlled v03.82 Streptococcus Pneumoniae Vaccination Spec Other Office Visit 12/10/2011 3:30p [employer] Internal Caitlyn Jones, 486 Pneumonia Medicine - N.P. Organism Unspec [place] 278.01 Obesity Morbid 401.1 Hypertension Benign 272.0 Hypercholesterolemia Pure 250.00 Diabetes Mellitus W/O Compl Type II Or Unspec Controlled 790.21 Impaired Fasting Glucose Office Visit 11/19/2011 4:00p [employer] Internal Caitlyn Karen, 486 Pneumonia Medicine - N.P. Organism Unspec [place] 401.1 Hypertension Benign 272.0 Hypercholesterolemia Pure 278.01 Obesity Morbid Office Visit 03/03/2011 3:40p DO Not Use [employer] Ramez EMartita 790.21 Impaired Fasting AT Soledad Akins M.D. Glucose V04.81 Need For Prophylactic Vaccination & Inoculation/Influenza 401.1 Hypertension Benign 300.09 Anxiety States Other 272.0 Hypercholesterolemia Pure 707.15 Ulcer Of Other Part Of Foot Office Visit 01/24/2010 11:40a DO Not Use [employer] Ramez Lopez 401.1 Hypertension Benign AT Soledad Akins M.D. 300.09 Anxiety States Other 272.0 Hypercholesterolemia Pure V04.81 Need For Prophylactic Vaccination & Inoculation/Influenza v04.81 Need For Prophylactic Vaccination & Inoculation/Influenza Office Visit 01/02/2009 1:30p DO Not Use [employer] AT Ramez E. 707.15 Ulcer Of Other [place] Akins M.D. Part Of Foot 401.1 Hypertension Benign 272.0 Hypercholesterolemia Pure 300.09 Anxiety States Other Office Visit 10/08/2008 2:00p [facility] AT Ramez Akins, 787.91 [address]arrhea [facility] Rex 300.09 Anxiety States Other Office Visit 08/07/2008 3:00p Anitra Lpoez 789.00 Pain Abdominal Assoc AT Rex Akins Unspec Site [facility] 787.91 Diarrhea 401.1 Hypertension Benign Office Visit 04/24/2008 3:00p Anitra Lopez V72.83 Examination Assoc AT Rex Akins Preoperative Other [facility] [place] Spec 272.0 Hypercholesterolemia Pure 401.1 Hypertension Benign 300.09 Anxiety States Other Office Visit 12/29/2007 [facility] Ramez E. 272.0 Hypercholesterolemia Pure 2:30p Assoc AT [facility] 401.1 Hypertension Benign Office Visit 12/06/2007 [facility] Ramez E. 272.0 Hypercholesterolemia Pure 10:45a Assoc AT [facility] 786.05 Shortness Of Breath 401.1 Hypertension Benign V72.83 Examination Preoperative Other Spec Office Visit 11/07/2007 2:45p [facility] Ramez E. 401.1 Hypertension Benign Assoc AT [facility] 300.09 Anxiety States Other Office Visit 08/18/2007 [facility] Ramez E. 401.1 Hypertension Benign 3:15p Assoc AT [facility] Office Visit 07/06/2007 [facility] Ramez E. 401.1 Hypertension Benign 3:30p Assoc AT [facility] Office Visit 01/05/2007 [facility] Ramez E. 272.0 Hypercholesterolemia Pure 3:15p Assoc AT [facility] 401.1 Hypertension Benign 300.09 Anxiety States Other V04.81 Need For Prophylactic Vaccination & Inoculation/Influenza Plan of Treatment Future Appointment(s):04/15/2018 2:15 pm - Marlon Buckley MD at [facility].05/10/2018 2:15 pm - Aretha Oliva DNP, RN, MARKET PRESIDENT- at Pul[facility]ology [facility] Sleep Services Of [facility]04/07/2018 - Latanya Manzo MDE11.610 Type 2 diabetes mellitus with diabetic neuropathic ullefxtitR00.621 Type 2 diabetes mellitus with foot ulcerNew Medication:Sulfamethoxazole/Trimethoprim DS 800-160 mg - take one tablet every 12 hoursReferral:Wound Clinic, Clinic/Center
--- OUTSIDE RECORDS SUMMARY | 2018-04-07 15:38 | XMS REPORT | Continuity of Care Document ---
:1950 External Reference #:[id number] Author Name Christie Wilson Care Team Providers Name Role Phone Ramez Akins III, MD Primary Care Physician Unavailable Payers Type Date Identification Numbers Payment Provider Subscriber Policy Number: [id number] Medicare Albin Luevano PayID: [id number] [address] [place] [address] Expires: 2018 Policy Number: [id number] Medicare Albin Luevano PayID: [id number] [address] [place] [address] Policy Number: [id number] [employer] Albin Luevano Group Number: [id number] [address] PayID: [id number] [place] [address] Advance Directives Description No Information Available Problems [...] History Date Family Member(s) Problem(s) Comments General [place] General Cancer : (age 50 Years) Father due to [place] Mother due to Colon Cancer () Social History Type Date Description Comments Sex Unknown Marital Status Lives With 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 Potassium/[place] s by mouth every Garcia, chlorothiazide day [...] M.D. Multivitamins Active Tablets 1 PO qd Bark, MD Mikhail Tamsulosin HCL Active Capsules 0.4mg 1 by mouth Unknown every day 1/2 hour after dinner Aleve Active Capsules 220mg 1 tbalet as Unknown needed for pain, approximately twice a week. Gabapentin Active Capsules 100mg 1 capsule Unknown three times daily. Ciprofloxacin Active Tablets 500mg 1 tab by mouth Unknown twice a day (6 more days of Tx) Omeprazole Active Capsules 40mg [address] every day before breakfast Ceftriaxone 09/29 Hx Solution 2gm 2 grams daily Bryn Sodium /2017 Rec iv x 6 wks at D. - [facility] [place] Bronwyn, 12/19 M.D. Metronidazole 09/28 Hx Tablets 500mg 30tab 1 tab by mouth M86.171 Bryn s every 12 hours [facility], 12[facility]08 M.D. Amlodipine 03/29 Hx Tablets 5mg 90tab 1 by mouth Steffen S. Besylate s every day Garcia, - DO [facility] 03/21 Amlodipine 11/27 Hx Tablets 10mg 90tab 1 by mouth Steffen S. Besylate s every day Garcia, - DO [facility] 03/29 Losartan 08/14 Hx Tablets 100-25mg 30tab 1 by mouth Ramez E. Potassium/[place] /2016 s every day Mable chlorothiazide - M.D. 08/14 Z Pack 08/22 Hx Tablets 250mg 6tabs 2 today 1 Ramez Lopez every day 4 Mable, - days M.D. 08/22 Azithromycin 08/22 Hx Tablets 250mg 6tabs two tabs day Ramez Lopez one, one daily Mable, - till gone M.D. 10/10 Kacey Louise 02/16 Hx Capsules 100mg 30cap 1-2 po tid prn Ramez Lopez Adrianne Avery M.D. 10/10 Metformin HCL 12/09 Hx Tablets 500mg 90tab Take 1 Tablet 250.00 Ramez Lopez /2011 s Daily Adrianne Akins M.D. 11/20 Lipitor 03/03 Hx Tablets 20mg 90tab one tab po qhs 272.0 Ramez Lopez s Adrianne Akins M.D. 01/31 Losartan 03/03 Hx Tablets 50-12.5mg 90tab take 1 tablet E78.0 Ramez Lopez Potassium/[place] s daily Mable chlorothiazide Adrianne Goodman 08/24 Lisinopril/Hydr 10/16 Hx Tablets 20-12.5mg 90tab Take 1 Tablet 272.0 Ramez Lopez ochlorothiazide Daily Adrianne Akins M.D. 03/03 Z Pack 09/03 Hx Tablets 250mg 6tabs 2 today 1 qd 4 Ramez Lopez 2010 Adrianne Akins M.D. 03/03 Lisinopril/Hydr 01/24 Hx Tablets 10-12.5mg [...] Adrianne Akins M.D. 09/25 Lisinopril/HCT /2008 Z 2012.5 Zestoretic 07/05 Hx Tablets 20-12.5 90tab po qd Ramez Lopez Adrianne Avery M.D. 03/03 Lisinopril 07/05 Hx Tablets 10mg 90tab 1 po qd Ramez Owen. Adrianne Avery M.D. 09/18 Zestoretic Hx Tablets 01/21.5 90tab 1 PO qd Ramez E. Adrianne [...] Hx Tablets 10mg 90tab 1 PO qd Lety s MD Mikhail - 05/17 Valium Hx Tablets 5mg 90tab 1 po tid prn Ramez E. s to fill as Adrianne Akins M.D. 11/27 Prednisone Hx Tablets 10mg 30tab 5tabx 2days,4 Unknown s [id number] - 1inee9mbjd,2ta 10/10 kh3ylvs,1tabx ay. Levofloxacin Hx Tablets 750mg 7tabs 1 tab po qd x Ramez E. 7 days Adrianne Akins M.D. 10/10 Ventolin HFA Hx Aerosol 108(90Bas 1unit 2 puffs po qid Unknown /0000 e) mcg/ac s prn - 10/24 Sulfamethoxazol Hx Tablets 800-160mg 20tab 1 po bid Unknown e/Trimethoprim / s DS - 10/10 Mupirocin Hx Ointment 2% 22gm apply to skin Unknown lesions twice - daily 10/24 Doxycycline Hx Capsules 100mg one tablet Unknown Hyclate three times a - day (per 09/27 [place] [facility] [place] Immunizations CPT Code Status Date Vaccine Lot # [id number] Given 01/23/2016 Flu Vaccine NOS [id number] Given 05/28/2015 Tdap - Tetanus/Diptheria/Acellular Pertussis [id number] 99031 Given 02/07/2015 Fluzone High Dose 23751 Given 09/25/2014 Pneumococcal Conjugate Vaccine 13 Valent For [id number] Intramuscular Use 42953 Given 01/23/2014 Fluzone High Dose 00922 Given 10/10/2013 Zoster (Zostavax) [id number] Q2039 Given 03/22/2013 Flu Vaccine NOS 96511 Given 03/31/2012 Pneumonia Vaccine [id number] Q2038 Given 02/11/2012 Fluzone Vaccine [id number] Given 03/03/2011 Influenza Virus 3Yrs & Over [id number] 79083 Given 01/24/2010 Influenza Virus 3Yrs & Over [id number] 50965 Given 02/07/2009 Influenza Virus 3Yrs & Over 24688 Given 02/07/2009 Influenza Virus 3Yrs & Over [id number] 88942 Given 01/05/2007 Influenza Virus 3Yrs & Over [id number] 45163 Given 06/02/2005 Td (History By Patient) Vital Signs Date Vital Result Comment 03/23/2018 3:21pm Height 75 inches 6'3" Weight [...] 48.1 kg/m2 Ejection Fraction 60-65% 12/22/17 echo [facility] 01/26/2018 3:04pm Height 75 inches 6'3" Heart [...] Test Result H/L Range Note Laboratory test 12/21/2017 [facility] Troponin-I 0.02 ng/mL < 0.[address] (TnI) [place] [address] [phone] Comp Metabolic 12/21/2017 [facility] Sodium 135 mmol/L N 135- [address] [place] [address] [phone] Potassium 4.0 mmol/L N 3.5-5.0 Chloride 103 [...] >60 Egfr 105.3 >60 1 Inr/Protime 12/21/2017 [facility] Inr 1.03 High 0.77-1.[address] [place] [address] [phone] Urine Culture And 12/21/2017 [facility] Urine SEE RESULT [address] [place] [address] [phone] Laboratory test 12/21/2017 [facility] Lactic Acid 1.6 mmol/L N 0.5-2.[address] [place] [address] [phone] Urinalysis Profile 12/21/2017 [facility] Urine Color Yellow [address] [place] [address] [phone] Urine Appearance Clear Urine Specific Gilbert 1.016 N 1.010-1.030 Urine pH 6.0 N 5-9 Urine Urobilinogen Negative Negative Urine Ketones Negative Negative Urine Protein Negative Negative Urine Leukocytes Trace Abnormal Negative Urine Blood 1+ Abnormal Negative Urine Nitrite Negative Negative Urine Bilirubin Negative Negative Urine Glucose Negative Negative Urine White Blood Cell Trace(0-5/hpf) Absent Urine Red Blood Cell Absent Absent Urine Bacteria Absent Absent CBC Auto 12/21/2017 [facility] White Blood 16.6 10^3/uL High 3.5-10.[address] [place] [address] [phone] Red Blood Count 2.70 10^6/uL Low 4.00-5.40 [...] High 1.5-7.7 Iron & Iron Binding 12/21/2017 [facility] Iron 56 g/dL N 50- 212 [address] [place] [address] [phone] Unsaturated Iron Binding 298 g/dL Total Iron Binding Capacity 354 g/dL N 250-450 Transferrin 253 mg/dL N 203-362 % Iron Saturation 16 % N 15-55 Laboratory test 12/21/2017 [facility] Magnesium 1.9 mg/dL N 1.9-2.7 finding [address] [place] [address] [phone] C Reactive Protein 15.73 mg/L High <8.01 TSH (Thyroid Stim Horm) 6.97 mcIU/mL High 0.34-5.60 Ferritin 90.7 ng/mL N 24-336 Vitamin B12 348 pg/mL N 180-914 4 Laboratory test 12/21/2017 [facility] Pathologist Review (SEE NOTE) 5 finding [address] [place] [address] [phone] Blood Culture SEE RESULT BELOW 6 Manual Differential 12/21/2017 [facility] Immature 2 % N 0-9 101 [facility] [place] [place] [address] [phone] Neutrophil % 78 % N 38-83 Band [...] N 0-0.2 Macrocytosis 1+ Laboratory test 12/09/2017 [facility] Hemoglobin A1c 5.1 5-7 finding Laboratory test 12/09/2017 [facility] Epifix 3.5X3.5 SEE RESULTS 7, [address] Mesh BELO <[place] [address] NOTE> [phone] Laboratory test 11/26/2017 [facility] Point of Care 108 mg/dL High 70-100 [address] Glucose [place], [place] [id number] [phone] Laboratory test 11/26/2017 [facility] Point of Care 134 mg/dL High 70-100 [address] [place] [address] [phone] Laboratory test 11/26/2017 [facility] Point of Care 124 mg/dL High 70-100 [address] Glucose [place], [place] [address] [phone] Laboratory test 11/25/2017 [facility] Point of Care 108 mg/dL High 70-100 [address] Glucose [place], [place] [address] [phone] Laboratory test 11/25/2017 [facility] Point of Care 130 mg/dL High 70-100 [address] [place] [address] [phone] Laboratory test 11/23/2017 [facility] Point of Care 123 mg/dL High 70-100 [address] [place] [address] [phone] Laboratory test 11/23/2017 [facility] Point of Care 152 mg/dL High 70-100 [address] Glucose [place], [place] [address] [phone] Laboratory test 11/18/2017 [facility] Point of Care 112 mg/dL High 70-100 [address] [place] [address] [phone] Laboratory test 11/18/2017 [facility] Point of Care 135 mg/dL High 70-100 [address] [place] [address] [phone] Laboratory test 11/17/2017 [facility] Point of Care 99 mg/dL N 70-100 [address] [place] [address] [phone] Laboratory test 11/17/2017 [facility] Point of Care 142 mg/dL High 70-100 [address] [place] [address] [phone] Laboratory test 11/16/2017 [facility] Point of Care 112 mg/dL High 70-100 [address] [place] [address] [phone] Laboratory test 11/16/2017 [facility] Point of Care 154 mg/dL High 70-100 [address] [place] [address] [phone] Laboratory test 11/15/2017 [facility] Point of Care 115 mg/dL High 70-100 [address] [place] [address] [phone] Laboratory test 11/15/2017 [facility] Point of Care 117 mg/dL High 70-100 [address] [place] [address] [phone] Laboratory test 11/12/2017 [facility] Point of Care 124 mg/dL High 70-100 [address] [place] [address] [phone] Laboratory test 11/12/2017 [facility] Point of Care 143 mg/dL High 70-100 [address] [place] [address] [phone] Laboratory test 11/11/2017 [facility] Point of Care 124 mg/dL High 70-100 [address] [place] [address] [phone] Laboratory test 11/11/2017 [facility] Point of Care 142 mg/dL High 70-100 [address] [place] [address] [phone] Laboratory test 11/10/2017 [facility] Point of Care 109 mg/dL High 70-100 [address] [place] [address] [phone] Laboratory test 11/10/2017 [facility] Point of Care 159 mg/dL High 70-100 [address] [place] [address] [phone] Laboratory test 11/09/2017 [facility] Point of Care 109 mg/dL High 70-100 [address] [place] [address] [phone] Laboratory test 11/09/2017 [facility] Point of Care 135 mg/dL High 70-100 [address] [place] [address] [phone] CBC Auto Diff 11/08/2017 [facility] White Blood 6.8 10^3/uL N 3.5-10.[address] [place] [address] [phone] Red Blood Count 3.93 10^6/uL Low 4.00-5.40 [...] Cells % 0.3 Comp Metabolic Panel 11/08/2017 [facility] Sodium 139 mmol/L N 135-[address] [place] [address] [phone] Potassium 3.9 mmol/L N 3.5-5.0 Chloride 101 [...] Egfr 100.0 >60 32 Laboratory test 11/08/2017 [facility] C Reactive 7.49 mg/L N < 8.[address] [place] [address] [phone] Laboratory test 11/08/2017 [facility] Point of Care 113 mg/dL High 70-[address] [place] [address] [phone] Laboratory test 11/08/2017 [facility] Point of Care 159 mg/dL High 70-100 [address] [place] [address] [phone] Laboratory test 11/05/2017 [facility] Point of Care 121 mg/dL High 70-100 [address] [place] [address] [phone] Laboratory test 11/05/2017 [facility] Point of Care 121 mg/dL High 70-100 [address] [place] [address] [phone] Laboratory test 11/04/2017 [facility] Point of Care 113 mg/dL High 70-100 [address] [place] [address] [phone] Laboratory test 11/04/2017 [facility] Point of Care 149 mg/dL High 70-100 [address] [place] [address] [phone] Laboratory test 11/03/2017 [facility] Point of Care 98 mg/dL N 70-100 [address] [place] [address] [phone] Laboratory test 11/03/2017 [facility] Point of Care 158 mg/dL High 70-100 [address] [place] [address] [phone] Laboratory test 11/02/2017 [facility] Point of Care 108 mg/dL High 70-100 [address] [place] [address] [phone] Laboratory test 11/02/2017 [facility] Point of Care 153 mg/dL High 70-100 [address] [place] [address] [phone] Comp Metabolic 11/01/2017 [facility] Sodium 137 N 135-[address] mmol/[place] [address] [phone] Potassium 4.0 mmol/L N 3.5-5.0 Chloride 100 [...] Egfr 100.0 >60 43 Laboratory test 11/01/2017 [facility] C Reactive 22.08 mg/L High <8.[address] [place] [address] [phone] CBC Auto Diff 11/01/2017 [facility] White Blood 7.8 N 3.5- 10.[address] Count 10^3/[place] [address] [phone] Red Blood Count 4.16 10^6/uL N 4.00-5.40 [...] Blood Cells % 0.1 Laboratory test 11/01/2017 [facility] Point of 94 mg/dL N 70- 100 44 finding [address] [facility] [place] [address] [phone] Laboratory test 11/01/2017 [facility] Point of 154 mg/dL High 70-100 45 finding [address] [facility] [place] [address] [phone] Laboratory test 10/28/2017 [facility] Point of 99 mg/dL N 70- 100 46 finding [address] [facility] Glucose [place], [place] [address] [phone] Laboratory test 10/28/2017 [facility] Point of 124 mg/dL High 70-100 47 finding [address] [facility] [place] [address] [phone] Laboratory test 10/27/2017 [facility] Point of 127 mg/dL High 70-100 48 finding [address] [facility] [place] [address] [phone] Laboratory test 10/27/2017 [facility] Point of 97 mg/dL N 70- 100 49 finding [address] [facility] [place] [address] [phone] Laboratory test 10/26/2017 [facility] Point of 124 mg/dL High 70-100 [address] [place] [address] [phone] Laboratory test 10/26/2017 [facility] Point of 125 mg/dL High 70-100 [address] [place] [address] [phone] Laboratory test 10/26/2017 [facility] Point of 109 mg/dL High 70-100 [address] [place] [address] [phone] CBC Auto Diff 10/25/2017 [facility] White Blood 6.7 N 3.5- 10.[address] Count 10^3/[place] [address] [phone] Red Blood Count 4.32 10^6/uL N 4.00-5.40 [...] Cells % 0.1 Comp Metabolic Panel 10/25/2017 [facility] Sodium 139 mmol/L N 135-[address] [place] [address] [phone] Potassium 3.9 mmol/L N 3.5-5.0 Chloride 103 [...] Egfr 96.3 >60 53 Laboratory test 10/25/2017 [facility] C Reactive 4.74 mg/L N < 8.[address] [place] [address] [phone] Laboratory test 10/25/2017 [facility] Point of Care 118 mg/dL High 70-100 [address] [place] [address] [phone] Laboratory test 10/25/2017 [facility] Point of Care 117 mg/dL High 70-100 [address] [place] [address] [phone] Laboratory test 10/25/2017 [facility] Point of Care 99 mg/dL N 70-100 [address] [place] [address] [phone] Laboratory test 10/22/2017 [facility] Point of Care 101 mg/dL High 70-100 [address] [place] [address] [phone] Laboratory test 10/22/2017 [facility] Point of Care 132 mg/dL High 70-100 [address] [place] [address] [phone] Laboratory test 10/21/2017 [facility] Point of Care 111 mg/dL High 70-100 [address] [place], [place] [address] [phone] Laboratory test 10/21/2017 [facility] Point of Care 180 mg/dL High 70-100 [address] [place]ucose [place], [place] [address] [phone] Laboratory test 10/20/2017 [facility] Point of Care 119 mg/dL High 70-100 [address] [place] [address] [phone] Laboratory test 10/20/2017 [facility] Point of Care 115 mg/dL High 70-100 [address] [place] [address] [phone] Laboratory test 10/19/2017 [facility] Point of Care 123 mg/dL High 70-100 [address] [place] [address] [phone] Laboratory test 10/19/2017 [facility] Point of Care 134 mg/dL High 70-100 [address] [place] [address] [phone] CBC Auto Diff 10/18/2017 [facility] White Blood 6.5 N 3.5- 10.[address] Count 10^3/[place] [address] [phone] Red Blood Count 4.23 10^6/uL N 4.00-5.40 [...] Cells % 0.1 Comp Metabolic Panel 10/18/2017 [facility] Sodium 138 mmol/L N 135-[address] [place] [address] [phone] Potassium 3.7 mmol/L N 3.5-5.0 Chloride 102 [...] Egfr 90.7 >60 65 Laboratory test 10/18/2017 [facility] C Reactive 11.79 mg/L High <8.[address] [place] [address] [phone] Laboratory test 10/18/2017 [facility] Point of Care 117 mg/dL High 70-100 [address] [place] [address] [phone] Laboratory test 10/18/2017 [facility] Point of Care 153 mg/dL High 70-100 [address] [place] [address] [phone] Laboratory test 10/15/2017 [facility] Point of Care 100 mg/dL N 70-100 [address] [place] [address] [phone] Laboratory test 10/15/2017 [facility] Point of Care 115 mg/dL High 70-100 [address] [place] [address] [phone] Laboratory test 10/14/2017 [facility] Point of Care 144 mg/dL High 70-100 [address] [place] [address] [phone] Laboratory test 10/14/2017 [facility] Point of Care 117 mg/dL High 70-100 [address] [place] [address] [phone] Laboratory test 10/14/2017 [facility] Point of Care 93 mg/dL N 70-100 [address] [place] [address] [phone] Laboratory test 10/12/2017 [facility] Point of Care 169 mg/dL High 70-100 [address] [place] [address] [phone] Laboratory test 10/12/2017 [facility] Point of Care 135 mg/dL High 70-100 [address] [place] [address] [phone] Laboratory test 10/12/2017 [facility] Point of Care 107 mg/dL High 70-100 [address] [place] [address] [phone] CBC Auto Diff 10/11/2017 [facility] White Blood 6.9 N 3.5- 10.[address] Count 10^3/[place] [address] [phone] Red Blood Count 4.21 10^6/uL N 4.00-5.40 [...] Cells % 0.1 Comp Metabolic Panel 10/11/2017 [facility] Sodium 138 mmol/L N 135-[address] [place] [address] [phone] Potassium 4.0 mmol/L N 3.5-5.0 Chloride 104 [...] Egfr 91.8 >60 76 Laboratory test 10/11/2017 [facility] C Reactive 7.43 mg/L N < 8.[address] [place] [address] [phone] Laboratory test 10/11/2017 [facility] Point of Care 119 mg/dL High 70-100 [address] [place] [address] [phone] Laboratory test 10/11/2017 [facility] Point of Care 131 mg/dL High 70-100 [address] [place] [address] [phone] CBC Auto Diff 10/04/2017 [facility] White Blood 5.9 N 3.5- 10.[address] Count 10^3/[place] [address] [phone] Red Blood Count 4.27 10^6/uL N 4.00-5.40 [...] Cells % 0 Comp Metabolic Panel 10/04/2017 [facility] Sodium 134 mmol/L Low 135-[address] [place] [address] [phone] Potassium 3.9 mmol/L N 3.5-5.0 Chloride 100 [...] Egfr 98.7 >60 79 Laboratory test 10/04/2017 [facility] C Reactive 12.45 mg/L High <8.[address] [place] [address] [phone] Comp Metabolic 10/02/2017 [facility] Sodium 134 mmol/L Low 135 -[address] [place] [address] [phone] Potassium 3.8 mmol/L N 3.5-5.0 Chloride 98 [...] 94.0 >60 80 CBC Auto Diff 10/02/2017 [facility] White Blood 6.3 10^3/uL N 3.5-10.[address] [place] [address] [phone] Red Blood Count 4.29 10^6/uL N 4.00-5.40 [...] Blood Cells % 0.2 Laboratory test 10/02/2017 [facility] C Reactive 5.92 mg/L N < 8.[address] [place] [address] [phone] Wound 09/28/2017 [facility] Wound/Misc SEE RESULT 81, 82 Culture/Sensi [address] [place] [address] Stain [phone] CBC Auto Diff 09/17/2017 [facility] White Blood 5.8 N 3.5- 10.[address] Count 10^3/uL [place], [place] [address] [phone] Red Blood Count 4.18 10^6/uL N 4.0-5.4 [...] Blood Cells % 0 Basic Metabolic 09/17/2017 [facility] Sodium 135 mmol/L Low 139-[address] [place] [address] [phone] Potassium 4.5 mmol/L N 3.5-5.0 Chloride 100 mmol/L Low 101-111 Co2 Carbon Dioxide 28 mmol/L N 22-32 Anion Gap 7 mmol/L N 2-11 Glucose 101 mg/dL High 70-100 Blood Urea Nitrogen 12 mg/dL N 6-24 Creatinine 1.09 mg/dL N 0.67-1.17 BUN/Creatinine Ratio 11.0 N 8-20 Calcium 9.3 mg/dL N 8.6-10.3 Egfr Non- 67.1 >60 Egfr 86.3 >60 83 Laboratory test 09/17/2017 [facility] C Reactive 14.45 mg/L High < 5.00 [address] [place] [address] [phone] Hemoglobin A1c (Glyco HGB) 5.4 % N 4.0-5.6 85 Laboratory test 09/16/2017 [facility] Epifix 3.5X3.5 SEE RESULTS 86, [address] Mesh BELO <[place] [address] NOTE> [phone] Laboratory test 09/09/2017 [facility] Epifix 3.5X3.5 SEE RESULTS [address] Mesh BELO <SEE [place] [address] NOTE> [phone] Laboratory test 08/13/2017 [facility] Point of Care 119 mg/dL High 70-[address] Glucose 00 [place] [address] [phone] Laboratory test 08/13/2017 [facility] Point of Care 129 mg/dL High 70-1 [address] Glucose 00 [place] [address] [phone] Laboratory test 08/12/2017 [facility] Point of Care 113 mg/dL High 70-1 [address] Glucose 00 [place] [address] [phone] Laboratory test 08/12/2017 [facility] Point of Care 178 mg/dL High 70-1 [address] Glucose 00 [place] [address] [phone] Laboratory test 08/11/2017 [facility] Point of Care 120 mg/dL High 70-1 [address] Glucose 00 [place] [address] [phone] Laboratory test 08/11/2017 [facility] Point of Care 153 mg/dL High 70-1 [address] Glucose 00 [place] [address] [phone] Laboratory test 08/09/2017 [facility] Point of Care 109 mg/dL High 70-1 [address] Glucose 00 [place] [address] [phone] Laboratory test 08/09/2017 [facility] Point of Care 154 mg/dL High 70-1 [address] Glucose 00 [place] [address] [phone] Laboratory test 08/06/2017 [facility] Point of Care 109 mg/dL High 70-1 [address] Glucose 00 [place] [address] [phone] Laboratory test 08/06/2017 [facility] Point of Care 134 mg/dL High 70-1 [address] Glucose 00 [place] [address] [phone] Laboratory test 08/04/2017 [facility] Point of Care 117 mg/dL High 70-1 [address] Glucose 00 [place] [address] [phone] Laboratory test 08/04/2017 [facility] Point of Care 138 mg/dL High 70-1 [address] Glucose 00 [place] [address] [phone] Laboratory test 08/03/2017 [facility] Point of Care 112 mg/dL High 70-1 [address] Glucose 00 [place] [address] [phone] Laboratory test 08/03/2017 [facility] Point of Care 142 mg/dL High 70-1 [address] Glucose 00 [place] [address]18234 [phone] Laboratory test 08/02/2017 [facility] Point of Care 85 mg/dL N 70-1 [address] Glucose 00 [place] 5985183 [phone] Laboratory test 08/02/2017 [facility] Point of Care 134 mg/dL High 70-1 [address] Glucose 00 [place], [place] [address]67[address]20 [phone] Laboratory test 07/30/2017 [facility] Point of Care 91 mg/dL N 70-1 [address] Glucose 00 [place], [place] [address]83 [phone] Laboratory test 07/30/2017 [facility] Point of Care 131 mg/dL High 70-1 [address] Glucose 00 [place], [place] [address]91 [phone] Laboratory test 07/29/2017 [facility] Point of Care 167 mg/dL High 70-1 [address] Glucose 00 [place] [address]36707 [phone] Laboratory test 07/29/2017 [facility] Point of Care 133 mg/dL High 70-1 [address] Glucose 00 [place], [place] [address]67 [phone] Laboratory test 07/28/2017 [facility] Point of Care 98 mg/dL N 70-1 [address] Glucose 00 [place] [address]343171 [phone] Laboratory test 07/28/2017 [facility] Point of Care 158 mg/dL High 70-1 [address] Glucose 00 [place], [place] 4729195 [phone] Laboratory test 07/27/2017 [facility] Point of Care 150 mg/dL High 70-1 [address] Glucose 00 [place], [place] [address]145362 [phone] Laboratory test 07/26/2017 [facility] Point of Care 123 mg/dL High 70-1 [address] Glucose 00 [place], [place] [address]3653 [phone] Laboratory test 07/26/2017 [facility] Point of Care 127 mg/dL High 70-1 [address] Glucose 00 [place] [address] [phone] Laboratory test 07/22/2017 [facility] Point of Care 125 mg/dL High 70-1 [address] Glucose 00 [place] [address] [phone] Laboratory test 07/22/2017 [facility] Point of Care 123 mg/dL High 70-1 [address] Glucose 00 [place] [address] [phone] Laboratory test 07/21/2017 [facility] Point of Care 130 mg/dL High 70-1 [address] Glucose 00 [place] [address] [phone] Laboratory test 07/21/2017 [facility] Point of Care 118 mg/dL High 70-1 [address] Glucose 00 [place] [address] [phone] Laboratory test 07/21/2017 [facility] Point of Care 119 mg/dL High 70-1 [address] Glucose 00 [place] [address] [phone] Laboratory test 07/20/2017 [facility] Point of Care 151 mg/dL High 70-1 [address] Glucose 00 [place] [address] [phone] Laboratory test 07/20/2017 [facility] Point of Care 114 mg/dL High 70-1 [address] Glucose 00 [place] [address] [phone] Laboratory test 07/19/2017 [facility] Point of Care 137 mg/dL High 70-1 [address] Glucose 00 [place] [address] [phone] Laboratory test 07/19/2017 [facility] Point of Care 100 mg/dL N 70-1 [address] Glucose 00 [place] [address] [phone] Laboratory test 07/15/2017 [facility] Point of Care 132 mg/dL High 70-1 [address] Glucose 00 [place] [address] [phone] Laboratory test 07/15/2017 [facility] Point of Care 108 mg/dL High 70-1 [address] Glucose 00 [place] [address] [phone] Laboratory test 07/15/2017 [facility] Point of Care 121 mg/dL High 70-1 [address] Glucose 00 [place] [address] [phone] Laboratory test 07/14/2017 [facility] Point of Care 109 mg/dL High 70-1 [address] Glucose 00 [place] [address] [phone] Laboratory test 07/14/2017 [facility] Point of Care 120 mg/dL High 70-1 [address] Glucose 00 [place] [address] [phone] Laboratory test 07/13/2017 [facility] Point of Care 111 mg/dL High 70-1 [address] Glucose 00 [place] [address] [phone] Laboratory test 07/13/2017 [facility] Point of Care 145 mg/dL High 70-1 [address] Glucose 00 [place] [address] [phone] Laboratory test 07/12/2017 [facility] Point of Care 117 mg/dL High 70-1 [address] Glucose 00 [place] [address] [phone] Laboratory test 07/12/2017 [facility] Point of Care 108 mg/dL High 70-1 [address] Glucose 00 [place] [address] [phone] Laboratory test 07/12/2017 [facility] Point of Care 134 mg/dL High 70-1 [address] Glucose 00 [place] [address] [phone] Laboratory test 07/05/2017 [facility] Point of Care 99 mg/dL N 70-1 [address] Glucose 00 [place] [address] [phone] Laboratory test 07/05/2017 [facility] Point of Care 129 mg/dL High 70-1 [address] Glucose 00 [place] [address] [phone] Laboratory test 07/02/2017 [facility] Point of Care 172 mg/dL High 70-1 [address] Glucose 00 [place], [place] 1673959 [phone] Laboratory test 07/02/2017 [facility] Point of Care 99 mg/dL N 70-1 [address] Glucose 00 [place], [place] [address]64 [phone] Laboratory test 07/01/2017 [facility] Point of Care 151 mg/dL High 70-1 [address] Glucose 00 [place] [address] [phone] Laboratory test 07/01/2017 [facility] Point of Care 105 mg/dL High 70-1 [address] Glucose 00 [place] [address] [phone] Laboratory test 06/30/2017 [facility] Point of Care 153 mg/dL High 70-1 [address] Glucose 00 [place] [address] [phone] Laboratory test 06/30/2017 [facility] Point of Care 123 mg/dL High 70-1 [address] Glucose 00 [place], [place] [address]19 [phone] Laboratory test 06/29/2017 [facility] Point of Care 122 mg/dL High 70-1 [address] Glucose 00 [place] [address] [phone] Laboratory test 06/29/2017 [facility] Point of Care 100 mg/dL N 70-1 [address] Glucose 00 [place] [address] [phone] Laboratory test 06/29/2017 [facility] Point of Care 140 mg/dL High 70-1 [address] Glucose 00 [place], [place] [address]75 [phone] Laboratory test 06/28/2017 [facility] Point of Care 160 mg/dL High 70-1 [address] Glucose 00 [place] [address] [phone] Laboratory test 06/28/2017 [facility] Point of Care 115 mg/dL High 70-1 [address] Glucose 00 [place] [address] [phone] Laboratory test 06/25/2017 [facility] Point of Care 161 mg/dL High 70-1 [address] Glucose 00 [place], [place] [address]50 [phone] Laboratory test 06/25/2017 [facility] Point of Care 120 mg/dL High 70-1 [address] Glucose 00 [place] [address] [phone] Laboratory test 06/24/2017 [facility] Point of Care 105 mg/dL High 70-1 [address] Glucose 00 [place] [address] [phone] Laboratory test 06/24/2017 [facility] Point of Care 145 mg/dL High 70-1 [address] Glucose 00 [place] [address] [phone] Laboratory test 06/23/2017 [facility] Point of Care 117 mg/dL High 70-1 [address] Glucose 00 [place] [address] [phone] Laboratory test 06/23/2017 [facility] Point of Care 123 mg/dL High 70-1 [address] Glucose 00 [place] [address] [phone] Laboratory test 05/31/2017 [facility] Prealbumin 14 mg/dL Low 18-[address] 8 [place] [address] [phone] Vitamin B12 477 pg/mL N 180-914 152 Vitamin D Total 25(Oh) 34.8 ng/mL N 20-50 Laboratory test 04/30/2017 [facility] Point of Care 104 mg/dL High 70-100 [address] [place] [address] [phone] Laboratory test 04/13/2017 [facility] Surgical SEE RESULT [address] [place] [address] [phone] Comp Metabolic 04/11/2017 [facility] Sodium 127 mmol/L Low 133 -[address] [place] [address] [phone] Potassium 3.7 mmol/L N 3.5-5.0 Chloride 91 [...] Egfr 102.3 >60 155 Laboratory test 04/11/2017 [facility] Lactic Acid 2.2 mmol/L High 0.5-2.0 156 finding 101 [place] [address] [phone] Inr/Protime 04/11/2017 [facility] Inr 1.36 High 0.77-1.02 157 [address] [place] [address] [phone] Laboratory test 04/11/2017 [facility] Partial 40.0 High 26.0- 36.3 finding 101 [facility] [place] [address] Time PTT [phone] Urinalysis 04/11/2017 [facility] Urine Color Yellow Profile [address] [place] [address] [phone] Urine Appearance Clear Urine Specific Gilbert 1.005 Low 1.010-1.030 Urine pH 6.0 N 5-9 Urine Urobilinogen Negative Negative Urine Ketones Trace Abnormal Negative Urine Protein Negative Negative Urine Leukocytes Negative Negative Urine Blood Negative Negative Urine Nitrite Negative Negative Urine Bilirubin Negative Negative Urine Glucose Negative Negative CBC Auto Diff 04/11/2017 [facility] White Blood 9.8 10^3/uL N 3.5-10.8 101 [facility] [place] [address] [phone] Red Blood Count 4.10 10^6/uL N 4.0-5.4 [...] Blood Cells % 0 Laboratory test 04/11/2017 [facility] Blood Culture SEE RESULT [address] [place] [address] [phone] Laboratory test 01/25/2017 [facility] Surgical SEE RESULT [address] [place] [address] [phone] Laboratory test 07/16/2016 [facility] Hemoglobin A1c 5.5 5-7 finding Urine Microalbumin 07/15/2016 [facility] Urine 46.19 mg/dL N Random [address] [place] [address] [phone] Ur Microalbumin (mg/L) 61.9 mg/L N Urine Microalbumin/Creatinine 134.0 ug/mg High <31 Comp Metabolic Panel 07/15/2016 [facility] Sodium 138 mmol/L N 133-[address] [place] [address] [phone] Potassium 4.0 mmol/L N 3.5-5.0 Chloride 102 [...] 107.9 N >60 160 Lipid Profile 07/15/2016 [facility] Triglycerides 159 mg/dL N 161 (Trig/Chol/HDL) [address] [place] [address] [phone] Cholesterol 147 mg/dL N 162 HDL Cholesterol 42.9 mg/dL N 163 LDL Cholesterol 72 mg/dL N 164 Laboratory test 02/26/2016 [facility] Hemoglobin A1c 5.8 5-7 finding Laboratory test 12/27/2015 [facility] MRSA/S. aureus SEE RESULT 165, [address] [place] [address] [phone] Wound 12/27/2015 [facility] Wound/Misc SEE RESULT 167 Culture/Sensi [address] Culture-[place] [address] [phone] Laboratory test 05/28/2015 [facility] Hemoglobin A1c 5.5 5-7 finding [...] ug/mg N <31 173 Laboratory test 09/25/2014 [facility] Hemoglobin A1c 5.4 5-7 finding CBC Auto Diff 09/24/2014 [facility] White Blood Count 8.2 N 4.8-10.[address] 10^3/[place] [address] [phone] Red Blood Count 4.81 10^6/uL N 4.0-5.4 [...] % 0.1 N Comp Metabolic Panel 09/24/2014 [facility] Sodium 138 mmol/L N 133-145 [address] [place] [address] [phone] Potassium 4.9 mmol/L N 3.5-5.0 Chloride 98 [...] 100.8 N >60 174 Urine Microalbumin 10/10/2013 [facility] Ur Microalbumin 5.0 mg/ dL N <30 175 Random [facility] (mg/L) [place] [address] [phone] Urine Creatinine 156.07 mg/dL N Urine Microalbumin/Creatinine 3.2 N Less Than 31 Comp Metabolic Panel 10/05/2013 [facility] Sodium 140 mmol/L N 133-[address] [place] [address] [phone] Potassium 3.9 mmol/L N 3.7-5.6 Chloride 104 [...] 103.6 N >60 177 Lipid Profile 10/05/2013 [facility] Triglycerides 133 mg/dL N 178 (Trig/Chol/HDL) [place] [address] [phone] Cholesterol 123 mg/dL N 179 HDL Cholesterol 29.4 mg/dL N 180 LDL Cholesterol 67 mg/dL N 181 Laboratory 10/05/2013 [facility] Hepatitis C Nonreactive N Nonreactive 182 [place] [address] [phone] Laboratory 10/05/2013 [facility] Hemoglobin 5.2 % N Less than 6.0 183 test [place] [address] [phone] CBC Auto Diff 10/05/2013 [facility] White Blood 7.2 10^3/uL N 4.8-10.[address] [place] [address] [phone] Red Blood Count 4.63 10^6/uL N 4.0-5.4 [...] Cells % 0.1 N Laboratory test 02/06/2013 [facility] Hemoglobin A1c 5.0 5-7 finding Wound Culture/Sensi 06/28/2012 [facility] Wound/Misc (SEE NOTE) [address] [place] [address] [phone] Urine Microalbumin 03/31/2012 [facility] Ur Microalbumin 4.0 mg/ L [address] (Mg/L) [place] [address] [phone] Urine Creatinine 90.6 mg/dL Urine Microalbumin/Creatinine 4.4 UG/MG Less Than 31 Laboratory test 03/31/2012 [facility] Hemoglobin A1c 5.6 5-7 finding Laboratory test 03/30/2012 [facility] Creatine Kinase 114 U/L 0-[address] [place] [address] [phone] Liver Function Panel 03/30/2012 [facility] Total Protein 6.6 g/ dL 6.2-8.1 [address] [place] [address] [phone] Albumin 3.7 g/dL 3.2-5.2 Globulin 2.9 g/dL 2-4 Albumin/Globulin Ratio 1.3 1-3 Total Bilirubin 0.9 mg/dL 0.4-1.5 Direct Bilirubin 0.1 mg/dL 0.1-0.5 Indirect Bilirubin 0.8 mg/dL 0.3-1.0 Alkaline Phosphatase 142 U/L High 30-110 Alt 18 U/L 14-54 Ast 22 U/L 12-42 Laboratory test 12/10/2011 [facility] House Hemoglobin A1c 7.1 High 5-7 finding Lipid Profile 12/09/2011 [facility] Triglyceride 161 mg/dL 40 -200 (Trig/Chol/HDL) [address] [place] [address] [phone] Cholesterol 169 mg/dL Less Than 200 186 High Density Lipoprotein 34 mg/dL Low 40-60 187 Cholesterol/HDL Ratio 4.97 AVERAGE 1-4.97 Low Density Lipoprotein 103 mg/dL High Less Than 100 188 Basic Metabolic Panel 12/09/2011 [facility] Sodium 139 mmol/L 135-145 [address] [place] [address] [phone] Potassium 4.0 mmol/L 3.5-5.0 Chloride 104 mmol/L 101-111 Co2 (Carbon Dioxide) 31.0 mmol/L 22-32 Anion Gap 4.0 mmol/L 2-11 189 Glucose 134 mg/dL High 70-100 BUN 11 mg/dL 6-24 Creatinine 1.0 mg/dL 0.50-1.40 One Over Creatinine 1.00 BUN/Creatinine Ratio 11.0 8-20 Calcium 8.5 mg/dL 8.1-9.9 eGFR Non- 75.5 > 60 eGFR 97.1 > 60 190 Laboratory test 12/09/2011 [facility] PSA 1.01 NG/ML 0-4 191 finding [address] [place] [address] [phone] Culture And 03/07/2011 [facility] M [address] ---- <[place] [address] NOTE> [phone] Culture And 03/07/2011 [facility] M [address] ---- <[place] [address] NOTE> [phone] Culture And 03/07/2011 [facility] M [address] ---- <[place] [address] NOTE> [phone] DR [facility] 06/03/2010 [facility] TSH 3.12 MIU/ML 0.34- 5.60 Panel 101 [place] [address] [phone] CMP Panel 06/03/2010 [facility] Sodium 139 mmol/L 135-145 [address] [place] [address] [phone] Potassium 3.8 mmol/L 3.5-5.0 Chloride 103 mmol/L [...] 110.0 > 60 197 Lipid Panel 06/03/2010 [facility] Triglyceride 125 mg/dL 40- 200 [address] [place] [address] [phone] Cholesterol 233 mg/dL High Less Than 200 198 High Density Lipoprotein 37 mg/dL Low 40-60 199 Cholesterol/HDL Ratio 6.30 AVERAGE High 1-4.97 Low Density Lipoprotein 171 mg/dL High Less Than 100 200 CBC W/Electronic 06/03/2010 [facility] White Blood 7.6 CUMM 4.8-10.8 Diff [address] [facility] [place] [address] [phone] Red Cell Count 4.72 CUMM 4.6-6.2 Hemoglobin 15.5 g/dL 14.0-18.0 Hematocrit 46 % 42-52 Mean Corpuscular Volume 97 um3 High 80-94 Mean Corpuscular Hemoglob 33 pg High 27-31 Mean Corpuscular HGB Cone 34 g/dL 32-36 Redcell Distribution WDTH 14 % 10.5-15 Platelet Count 181 CUMM 150-450 Mean Platelet Volume 9.9 um3 7.4-10.4 201 Manual Differential 06/03/2010 [facility] Polysegmented 55 % 38-83 101 [facility] [place] [address] [phone] Lymphocyte 21 % Low 25-47 Monocyte 16 % High 0-13 Eosinophil 6 % 0-6 Basophil 1 % 0-2 Atypical Lymph 1 % 0-6 Absolute Neutrophil Count 4.1 Anisocytosis SLIGHT Macrocytosis SLIGHT Platelet Evaluation LARGE Laboratory test 06/03/2010 [facility] PSA Screening 0.43 NG/ML 0-4 202 finding [address] [place] [address] [phone] Surgical 11/23/2008 [facility] Surgical 203 Pathology 101 [facility] Pathology ------ [place] [address] <SEE NOTE> [phone] Comp Metabolic 10/17/2008 [facility] Sodium 138 mmol/L 135- 145 Panel [address] [place] [address] [phone] Potassium 4.2 mmol/L 3.5-5.0 Chloride 102 mmol/L [...] 126.8 > 60 208 Lipid Profile 10/17/2008 [facility] Triglyceride 130 mg/dL 40 -200 (Trig/Chol/HDL) [address] [place] [address] [phone] Cholesterol 234 mg/dL High Less Than 200 209 High Density Lipoprotein 41 mg/dL 40-60 210 Cholesterol/HDL Ratio 5.71 AVERAGE High 1-4.97 Low Density Lipoprotein 167 mg/dL High Less Than 100 211 Liver Function 10/17/2008 [facility] Bilirubin Direct 0.1 mg/dL 0.1-0.5 Panel [address] [place] [address] [phone] Indirect Bilirubin 0.6 mg/dL 0.1-0.75 Laboratory test 10/17/2008 [facility] Hemoglobin A1c 5.0 % < 6.0 212 finding [address] [place] [address] [phone] Comp Metabolic 08/07/2008 [facility] Sodium 144 135-145 Panel [address] [facility] mmol/[place] [address] [phone] Potassium 4.5 mmol/L 3.5-5.0 Chloride 108 mmol/L [...] High 12-42 Iron & Iron Binding 08/07/2008 [facility] Iron Total 77 g/dL 45-[address] [place] [address] [phone] Unsaturated Iron Binding 146 g/dL Total Iron Binding Capacity 223 g/dL Low 250-450 % Iron Saturation 35 % 15-55 Laboratory test 08/07/2008 [facility] Vitamin B12 1018 pg/mL High 180-[address] [place] [address] [phone] Folic Acid 14.4 NG/ML 2-16 Alcohol < 10.0 mg/dL None Detected 216 Hepatitis B Surface Ag NEGATIVE Negative Hepatitis B Core Igm NEGATIVE Negative Hepatitis A AB Igm NEGATIVE Negative Hepatitis C Antibody NEGATIVE Negative CBC With 07/25/2008 [facility] White Blood 7.2 CUMM 4.8-10.8 Electronic Diff [address] [place] [address] [phone] Red Cell Count 4.70 CUMM 4.6-6.2 Hemoglobin [...] Abs Basophils 0.1 0-0.2 217 P33S 07/25/2008 [facility] Sodium 134 mmol/L Low 135-145 [address] [place] [address] [phone] Potassium 4.4 mmol/L 3.5-5.0 Chloride 96 mmol/L [...] High 12-42 222 Laboratory test finding 07/25/2008 [facility] Lipase 46 U/L 22-51 [address] [place] [address] [phone] Troponin-I (TnI) 0.04 NG/ML 0-0.06 223 Laboratory test 03/12/2008 [facility] PSA,Diagnostic 0.38 NG/ML 0-4 224 finding [address] [place] [address] [phone] Comp Metabolic 12/29/2007 [facility] Sodium 140 mmol/L 135- 145 225 Panel [address] [place] [address] [phone] Potassium 5.2 mmol/L High 3.5-5.0 Chloride 105 [...] 35 U/L 12-42 Basic Metabolic Panel 12/06/2007 [facility] Sodium 138 mmol/L 135-145 [address] [place] [address] [phone] Potassium 4.3 mmol/L 3.5-5.0 Chloride 101 mmol/L 101-111 Co2 (Carbon Dioxide) 33.0 mmol/L High 22-32 Anion Gap 4.0 mmol/L 2-11 229 Glucose 87 mg/dL 70-100 230 BUN 22 mg/dL 6-24 Creatinine 1.0 mg/dL 0.5-1.4 One Over Creatinine 1.00 BUN/Creatinine Ratio 22.0 High 8-20 Calcium 9.1 mg/dL 8.1-9.9 231 Liver Function 12/06/2007 [facility] Total Protein 6.3 GM/DL 6.2-8.1 Panel [address] [place] [address] [phone] Albumin 3.5 GM/DL Low 3.6-5.4 Globulin 2.8 GM/DL 2-4 Albumin/Globulin Ratio 1.3 1-3 Bilirubin Total 0.8 mg/dL 0.4-1.5 Bilirubin Direct 0.2 mg/dL 0.1-0.5 Indirect Bilirubin 0.6 mg/dL 0.1-0.75 Alkaline Phosphatase 104 U/L 39-117 Alt (SGPT) 80 U/L High 17-63 Ast (Sgot) 72 U/L High 12-42 Laboratory test finding 12/06/2007 [facility] GGTP 122 U/L High 7-50 [address] [place] [address] [phone] Vitamin B12 341 pg/mL 180-914 Folic Acid 11.1 NG/ML 2-16 Alcohol < 10.0 mg/dL None Detected 232 Thyroxine Free 0.68 NG/ML 0.61-1.24 233 TSH 2.54 MIU/ML 0.34-5.60 Hemoglobin A1c 5.3 % <6.0 234 Protime 12/01/2007 [facility] Protime 11.7 10.9-13.[address] [place] [address] [phone] Inr 0.93 235 Laboratory test 12/01/2007 [facility] PTT (Aptt) 22.6 20.1- 28.2 [address] [place] [address] [phone] CBC With 12/01/2007 [facility] White Blood 9.9 CUMM 4.8-10.8 Electronic Diff [address] [place] [address] [phone] Red Cell Count 4.40 CUMM Low 4.6-6.2 [...] Abs Basophils 0 0-0.2 237 P33S 12/01/2007 [facility] Sodium 140 mmol/L 135-[address] [place] [address] [phone] Potassium 3.9 mmol/L 3.5-5.0 Chloride 99 mmol/L [...] 83 U/L High 12-42 Laboratory test 12/01/2007 [facility] Troponin-I 0.02 NG/ML 0 -0.[address] (TnI) [place] [address] [phone] CBC With 10/19/2007 [facility] White Blood 6.8 CUMM 4.8-10.8 Electronic Diff [address] [place] [address] [phone] Red Cell Count 3.72 CUMM Low 4.6-6.2 [...] 0-0.6 Abs Basophils 0.2 0-0.2 DS3 10/19/2007 [facility] Amphetamines Urine NONE DETECTED None Detect [address] [place] [address] [phone] Barbituates Urine Screen NONE DETECTED None Detect Benzodiazepine Ur Screen NONE DETECTED None Detect Cannabinoid Urine Screen NONE DETECTED None Detect Cocaine Metabolites Urine NONE DETECTED None Detect Opiates Urine Screen POSITIVE Abnormal None Detect PCP Urine Screen NONE DETECTED None Detect 242 P33S 10/19/2007 [facility] Sodium 141 mmol/L 135-[address] [place] [address] [phone] Potassium 4.8 mmol/L 3.5-5.0 Chloride 108 mmol/L [...] 53 U/L High 12-42 Alcohol Stat 10/19/2007 [facility] Alcohol 374.5 High None Detected [address] mg/[place] [address] [phone] Basic Metabolic 10/07/2007 [facility] Sodium 141 mmol/L 135- [address] [place] [address] [phone] Potassium 4.2 mmol/L 3.5-5.0 Chloride 105 mmol/L 101-111 Co2 (Carbon Dioxide) 31.0 mmol/L 22-32 Anion Gap 5.0 mmol/L 2-11 247 Glucose 91 mg/dL 70-105 BUN 25 mg/dL High 6-24 Creatinine 0.9 mg/dL 0.5-1.4 One Over Creatinine 1.11 BUN/Creatinine Ratio 27.8 High 8-20 Calcium 8.9 mg/dL 8.1-9.9 248 CBC With Manual 10/07/2007 [facility] White Blood 5.8 CUMM 4.8-10.[address] [place] [address] [phone] Red Cell Count 4.10 CUMM Low 4.6-6.2 [...] Count 4.1 Macrocytosis SLIGHT CBC With 09/27/2007 [facility] White Blood 9.0 CUMM 4.8-10.8 Electronic Diff [address] [place] [place] [address] [phone] Red Cell Count 4.34 CUMM Low 4.6-6.2 [...] 0-0.6 Abs Basophils 0.1 0-0.2 P33S 09/27/2007 [facility] Sodium 139 mmol/L 135-[address] [place] [address] [phone] Potassium 3.4 mmol/L Low 3.5-5.0 Chloride 102 [...] U/L High 12-42 CBC W/ Electronic 01/04/2007 [facility] White Blood 4.7 CUMM Low 4.8-10.[address] [place] [address] [phone] Abs Basophils 0 0-0.2 Abs Eosinophils 0.2 [...] 14 % 10.5-15 Comp Metabolic Panel 01/04/2007 [facility] One Over Creatinine 1.[address] [place] [address] [phone] Anion Gap 6.0 mmol/L 2-11 251 Albumin/Globulin [...] Creatinine 0.9 mg/dL 0.5-1.4 Lipid Profile 01/04/2007 [facility] Cholesterol/HDL 3.10 1- 4.97 (Trig/Chol/HDL) [address] [place] [address] [phone] Cholesterol 183 mg/dL Less Than 200 252 Triglyceride 153 mg/dL 40-200 High Density Lipoprotein 59 mg/dL 40-60 Low Density Lipoprotein 93 mg/dL Less Than 100 253 Laboratory test 01/04/2007 [facility] TSH 2.33 MIU/ML 0.34- 5.[address] [place] [address] [phone] PSA Screening 1.04 NG/ML 0-4 254 1 [...] (or dialysis) 2 SEE RESULT BELOW Name: LUEVANOALBIN : [address]: Timmy Lees MD Acct: [id number] Unit: [id number] AGE: 67 Location: ICU UHL04-12 Re12/21/17 SEX: M Status: ADM IN SPEC: [id number] JOHNNY: 12/21/[address]: Ken Da Silva MD REQ: [id number] RECD: 12/21/17 STATUS: HILDA ALEXANDER DR: Ramez Akins III, MD _ SOURCE: URINE SPDESC: ORDERED: Urine Culture Procedure Result Reported Site Urine Culture Final 12/23/17- 0854 ML No growth of clinically significant organisms * ML - Main Lab . END OF REPORT DEPARTMENT OF PATHOLOGY, [address] [place] [address] Albin Mario M.D. Director [facility] # [id number] 3 [facility] Severe Sepsis and Septic Shock Management Bundle Measure requires all lactic acids initially measuring >2.0 mmol/L be repeated. 4 Normal Range 180 to 914 Indeterminate Range 145 to 180 Deficient Range <145 5 Leukocytosis with absolute neutrophilia indicative of acute inflammatory/reactive process. Progressive macrocytic anemia noted. Additional studies as clinically warranted. Reviewed by Dr. Mario 6 SEE RESULT BELOW Name: ALBIN LUEVANO : [address]: Timmy Lees MD Acct: [id number] Unit: [id number] AGE: 67 Location: [place] [address] Re12/21/17 SEX: M Status: ADM IN SPEC: [id number] JOHNNY: 12/21/[address]: Ken Da Silva MD REQ: [id number] RECD: 12/21/17 STATUS: HILDA ALEXANDER DR: Ramez Akins III, MD _ SOURCE: BLOOD,VENO SPDESC: ORDERED: Blood Cult Procedure Result Reported Site Aerobic Culture Bottle Final 12/26/17- 2043 ML No Growth Day 5 Anaerobic Culture Bottle Final 12/26/17- 2043 ML No Growth Day 5 * ML - Main Lab . END OF REPORT DEPARTMENT OF PATHOLOGY, [address] [place] [address] Albin Mario M.D. Director [facility] # [id number] 7 F/U 8 SEE RESULTS BELOW [id number] EPIFIX 3.5 MESH TRANSFUSED 08/31/18 0927 9 [facility] Operator: [id number] 10 [facility] Operator: [id number] 11 [facility] Operator: [id number] 12 [facility] Operator: [id number] 13 [facility] Operator: [id number] 14 [facility] Operator: [id number] 15 [facility] Operator: [id number] 16 [facility] Operator: [id number] 17 [facility] Operator: [id number] 18 [facility] Operator: [id number] 19 [facility] Operator: [id number] 20 [facility] Operator: [id number] 21 [facility] Operator: [id number] 22 [facility] Operator: [id number] 23 [facility] Operator: [id number] 24 [facility] Operator: [id number] 25 [facility] Operator: [id number] 26 [facility] Operator: [id number] 27 [facility] Operator: [id number] 28 [facility] Operator: [id number] 29 [facility] Operator: [id number] 30 [facility] Operator: [id number] 31 [facility] Operator: [id number] 32 Because ethnic data is not always [...] 5 Kidney failure <15 (or dialysis) 33 [facility] Operator: [id number] 34 [facility] Operator: [id number] 35 [facility] Operator: [id number] 36 [facility] Operator: [id number] 37 [facility] Operator: [id number] 38 [facility] Operator: [id number] 39 [facility] Operator: [id number] 40 [facility] Operator: [id number] 41 [facility] Operator: [id number] 42 [facility] Operator: [id number] 43 Because ethnic data is not always [...] 5 Kidney failure <15 (or dialysis) 44 [facility] Operator: [id number] 45 [facility] Operator: [id number] 46 [facility] Operator: [id number] 47 [facility] Operator: [id number] 48 [facility] Operator: [id number] 49 [facility] Operator: [id number] 50 [facility] Operator: [id number] 51 [facility] Operator: [id number] 52 [facility] Operator: [id number] 53 Because ethnic data is not always [...] 5 Kidney failure <15 (or dialysis) 54 [facility] Operator: [id number] 55 [facility] Operator: [id number] 56 [facility] Operator: [id number] 57 [facility] Operator: [id number] 58 [facility] Operator: [id number] 59 [facility] Operator: [id number] 60 [facility] Operator: [id number] 61 [facility] Operator: [id number] 62 [facility] Operator: [id number] 63 [facility] Operator: [id number] 64 [facility] Operator: [id number] 65 Because ethnic data is not always [...] 5 Kidney failure <15 (or dialysis) 66 [facility] Operator: [id number] 67 [facility] Operator: [id number] 68 [facility] Operator: [id number] 69 [facility] Operator: [id number] 70 [facility] Operator: [id number] 71 [facility] Operator: [id number] 72 [facility] Operator: [id number] 73 [facility] Operator: [id number] 74 [facility] Operator: [id number] 75 [facility] Operator: [id number] 76 Because ethnic data is not always [...] 5 Kidney failure <15 (or dialysis) 77 [facility] Operator: [id number] 78 [facility] Operator: [id number] 79 Because ethnic data is not always [...] 5 Kidney failure <15 (or dialysis) 81 [id number] 82 SEE RESULT BELOW Name: ALBIN LUEVANO : [address]: Bryn Barnhart MD Acct: [id number] Unit: [id number] AGE: 67 Location: [facility] Re09/28/17 SEX: M Status: REG REF SPEC: [id number] JOHNNY: 09/28/17-[address] [facility] [address]: Bryn Barnhart MD REQ: [id number] RECD: 09/28/17 STATUS: COMP _ SOURCE: TOE [facility]: ORDERED: Culture Stain COMMENTS: [id number] QUERIES: Specimen Description 4TH RIGHT TOE Procedure Result Reported Site Wound/Misc Gram Stain Final 09/29/17- 0746 ML 3+ Neutrophils 1+ Nucleated Cells 1+ Gram Positive Cocci Wound/Misc Culture Final 09/30/17- 1212 ML Organism 1 CORYNEBACTERIUM STRIATUM Quantity 2+ * ML - Main Lab . END OF REPORT DEPARTMENT OF PATHOLOGY, [address] [place] [address] Albin Mario M.D. Director [facility] # [id number] 83 Because ethnic data is not always [...] in selective patients <6.0%. Please refer to [place] [employer] diabetic care guidelines for further information. 86 f/u 87 SEE RESULTS BELOW [id number] EPIFIX 3.5 MESH TRANSFUSED 09/17/17 1039 88 SEE RESULTS BELOW [id number] EPIFIX 3.5 MESH TRANSFUSED 09/10/17 1157 89 [facility] Operator: [id number] 90 [facility] Operator: [id number] 91 [facility] Operator: [id number] 92 [facility] Operator: [id number] 93 [facility] Operator: [id number] 94 [facility] Operator: [id number] 95 [facility] Operator: [id number] 96 [facility] Operator: [id number] 97 [facility] Operator: [id number] 98 [facility] Operator: [id number] 99 [facility] Operator: [id number] 100 [facility] Operator: [id number] 101 [facility] Operator: [id number] 102 [facility] Operator: [id number] 103 [facility] Operator: [id number] 104 [facility] Operator: [id number] 105 [facility] Operator: [id number] 106 [facility] Operator: [id number] 107 [facility] Operator: [id number] 108 [facility] Operator: [id number] 109 [facility] Operator: [id number] 110 [facility] Operator: [id number] 111 [facility] Operator: [id number] 112 [facility] Operator: [id number] 113 [facility] Operator: [id number] 114 [facility] Operator: [id number] 115 [facility] Operator: [id number] 116 [facility] Operator: [id number] HBO Protocol [facility] Operator: [id number] 118 [facility] Operator: [id number] 119 [facility] Operator: [id number] 120 [facility] Operator: [id number] 121 [facility] Operator: [id number] 122 [facility] Operator: [id number] 123 [facility] Operator: [id number] 124 [facility] Operator: [id number] 125 [facility] Operator: [id number] 126 [facility] Operator: [id number] 127 [facility] Operator: [id number] 128 [facility] Operator: [id number] 129 [facility] Operator: [id number] 130 [facility] Operator: [id number] 131 [facility] Operator: [id number] 132 [facility] Operator: [id number] 133 [facility] Operator: [id number] 134 [facility] Operator: [id number] 135 [facility] Operator: [id number] 136 [facility] Operator: [id number] 137 [facility] Operator: [id number] 138 [facility] Operator: [id number] 139 [facility] Operator: [id number] 140 [facility] Operator: [id number] 141 [facility] Operator: [id number] 142 [facility] Operator: [id number] 143 [facility] Operator: [id number] 144 [facility] Operator: [id number] 145 [facility] Operator: [id number] 146 [facility] Operator: [id number] 147 [facility] Operator: [id number] 148 [facility] Operator: [id number] 149 [facility] Operator: [id number] 150 [facility] Operator: [id number] 151 [facility] Operator: [id number] 152 Normal Range 180 to 914 Indeterminate Range 145 to 180 Deficient Range <145 153 [facility] Operator: [id number] 154 SEE RESULT BELOW Name: ALBIN LUEVANO : [address]: Janeen Maya MD Acct: [id number] Unit: [id number] AGE: 67 Location: [place] [address] Re04/11/17 Dis: 04/14/17 SEX: M Status: DIS IN SPEC: [id number] JOHNNY: 04/13/17-[address] [facility] [address]: Steffen Rojas MD REQ: [id number] RECD: 04/13/17 STATUS: JASSI ALEXANDER DR: Riky Nelson MD _ ORDERED: Sada, LEVEL 4 FINAL DIAGNOSIS Left fifth toe, [...] rubbery cauterized soft tissue and bone fragment. Buyer Grain sections are submitted in cassettes A and B as follows: A-bone following decalcification and B-ulcer and soft tissue to include inked margin. MICROSCOPIC DESCRIPTION Signed (signature on file) Linh Ruvalcaba MD 12/28 1045 END OF REPORT * ML=Testing performed at Main Lab DEPARTMENT OF PATHOLOGY, [address] [place] [address] Albin Mario M.D. Director [facility] # [id number] 155 Because ethnic data is not always [...] dialysis) 156 Critical Result LACT:2.2 Called to [id number] at: 22:42:51 by:[id number] Read back by:ABIEL BUCKLEY Severe Sepsis and Septic Shock Management Bundle Measure requires all lactic acids initially measuring >2.0 mmol/L be repeated. 157 Please note the change in INR reference range effective 17. 158 SEE RESULT BELOW Name: ALBIN LUEVANO : [address]: Janeen Maya MD Acct: [id number] Unit: [id number] AGE: 67 Location: [place] [address] Re04/11/17 Dis: 04/14/17 SEX: M Status: DIS IN SPEC: [id number] JOHNNY: 04/11/[address] [facility] [address]: David Moulton MD REQ: [id number] RECD: 04/11/17 STATUS: HILDA [facility] DR: Ramez Akins III, MD _ SOURCE: BLOOD,VENO SPDESC: ORDERED: Blood Cult COMMENTS: Patient is On Antibiotics? NO Procedure Result Reported Site Aerobic Culture Bottle Final 04/16/17- 2220 ML No Growth Day 5 Anaerobic Culture Bottle Final 04/16/17- 2220 ML No Growth Day 5 * ML - MAIN LAB ([facility]) . END OF REPORT * ML=Testing performed at Main Lab DEPARTMENT OF PATHOLOGY, [address] [place] [address] Albin Mario M.D. Director [facility] # [id number] 159 SEE RESULT BELOW Name: ALBIN LUEVANO : [address]: Blu Jules MD Acct: [id number] Unit: [id number] AGE: 67 Location: [facility] Re01/25/17 SEX: M Status: DEP REF SPEC: [id number] JOHNNY: 01/25/[address]: Blu Jules MD REQ: [id number] RECD: 01/25/17 STATUS: JASSI ALEXANDER DR: Ramez [...] performed at Main Lab DEPARTMENT OF PATHOLOGY, [address] [place] [address] Albin Mario M.D. Director [facility] # [id number] RUN DATE: 01/26/17 [facility] LAB LIVE PAGE 2 Patient: ALBIN LUEVANO [id number] (Continued) GROSS DESCRIPTION (Continued) GROSS DESCRIPTION 1. [...] performed at Main Lab DEPARTMENT OF PATHOLOGY, [address] [place] [address] Albin Mario M.D. Director [facility] # [id number] 160 Because ethnic data is not always [...] 160-189 mg/dL Very High: >189 mg/dL 165 [id number] 166 SEE RESULT BELOW Name: LUEVANOALBIN : [address]: Jennifer Okeefe Acct: [id number] Unit: [id number] AGE: 65 Location: [facility] Re12/27/15 SEX: M Status: DEP ER SPEC: [id number] JOHNNY: 12/27/15 [facility] [address]: Anthony HONG REQ: [id number] RECD: 12/28/15-125 STATUS: HILDA ALEXANDER DR: Jennifer Brown III, MD _ SOURCE: [facility]: ORDERED: MRSA/SA SSTI, Culture Stain COMMENTS: [id number] Procedure Result Reported Site MRSA/S. aureus SSTI PCR Final 12/28/15- 1516 ML Organism 1 MRSA NEGATIVE Organism 2 S.AUREUS NEGATIVE Wound/Misc Gram Stain Final 12/28/15- 1342 ML 3+ Epithelial Cells 2+ Neutrophils 3+ Gram Positive Cocci 1+ Gram Positive Bacilli Wound/Misc Culture Final 12/30/15- 1202 ML Organism 1 NORMAL ARCENIO * ML - MAIN LAB ([facility]) . END OF REPORT * ML=Testing performed at Main Lab DEPARTMENT OF PATHOLOGY, [address] [place] [address] Albin Mario M.D. Director [facility] # [id number] 167 SEE RESULT BELOW Name: ALBIN LUEVANO : [address]: Jennifer Okeefe Acct: [id number] Unit: [id number] AGE: 65 Location: [facility] Re12/27/15 SEX: M Status: DEP ER SPEC: [id number] JOHNNY: 12/27/[address]: Anthony HONG REQ: [id number] RECD: 12/28/15 STATUS: RES [facility] DR: Jennifer Brown III, MD _ SOURCE: [facility]: ORDERED: MRSA/SA SSTI, Culture Stain COMMENTS: [id number] Procedure Result Reported Site MRSA/S. aureus SSTI PCR PENDING Wound/Misc Gram Stain Final 12/28/15- 1342 ML 3+ Epithelial Cells 2+ Neutrophils 3+ Gram Positive Cocci 1+ Gram Positive Bacilli Wound/Misc Culture PENDING * ML - MAIN LAB ([facility]) . END OF REPORT * ML=Testing performed at Main Lab DEPARTMENT OF PATHOLOGY, [address] [place] [address] Albin Mario M.D. Director [facility] # [id number] 168 >100 to <200 pg/mL: likely compensated [...] and in selective patients <6.0%.Please refer to [place] [employer] Diabetic care guidelines for further information. 184 RUN DATE: 07/01/12 [facility] LAB LIVE PAGE 1 RUN TIME: [address] [place] [address] Specimen Inquiry Name: ALBIN LUEVANO : [address]: Amanda Davenport MD Acct: [id number] Unit: [id number] AGE: 62 Location: [facility] Re06/28/12 SEX: M Status: DEP ER SPEC: [id number] JOHNNY: 06/28/12-0 [facility] DR: Amanda Davenport MD REQ: [id number] RECD: 06/29/12 STATUS: HILDA ALEXANDER DR: Ramez Akins III, MD _ SOURCE: JUANITA ZHONG SPDESC: ORDERED: Culture Stain Procedure Result Verified [...] performed at Main Lab DEPARTMENT OF PATHOLOGY, [address] [place] [address] Albin Mario M.D. Director [facility] Permit #[id number] RUN DATE: 07/01/12 [facility] LAB LIVE PAGE 2 RUN TIME: [address] [place] [address] Specimen Inquiry Patient: ALBIN LUEVANO [id number] (Continued) Specimen: [id number] Collected: 06/28/12-1749 Received: 06/29/12-1037 (Continued) Procedure Result Verified Site Wound/Misc Culture Final (continued) * These antibiotics are not available in the [facility] Formulary Contact the Microbiology Department for any additional antibiotic reporting. END OF REPORT * ML=Testing performed at Main Lab DEPARTMENT OF PATHOLOGY, [address] [place] [address] Albin Mario M.D. Director [facility] Permit #[id number] 185 Microalbuminuria in a random sample is [...] SERUM LEVELS OF PSA MEASURED USING THE GARBIELA JEROME ACCESS HYBRITECH IMMUNOASSAY SHOULD NOT BE INTERPRETED ABSOLUTE EVIDENCE OF THE PRESENCE OR ABSENCE OF DISEASE. THE PSA VALUE SHOULD BE USED IN CONJUNCTION WITH OTHER PERTINENT CLINICAL DIAGNOSTIC PROCEDURES. The values obtained with different assay methods or kits cannot be used interchangeably. 192 RUN DATE: 03/09/11 [facility] NMI LIVE PAGE 1 RUN TIME: 1101 Specimen Inquiry RUN USER: INTERFACE Name: ALLISONALBIN Status: ANN MARIE CLI Re03/07/11 Age/Sex: 61/M Unit#: [id number] Location: [facility] : 46 SPEC #: [id number] JOHNNY: 03/07/11 STATUS: RES ERIKQ #: [id number] RECD: 03/08/11-[address] [facility] [address]: Nayely Ortiz MD SOURCE: WOUND ENTR: 03/08/11-[address]: Mable PALMA MD, Ramez [facility]: TOE,RIGHT ORDERED: CULT SENS/GS ACT WKST: B 03/09/11 #1 Procedure Result Verified Site > CULTURE SENSITIVITY Preliminary 03/09/11- 1101 ML Organism 1 STAPHYLOCOCCUS AUREUS QUANTITY MANY Organism 2 PSEUDOMONAS SPECIES QUANTITY MODERATE > GRAM STAIN SMEAR Final 03/08/11- 1521 ML POLYS MODERATE SMEAR: MOD GRAM POSITIVE COCCI MOD GRAM NEGATIVE BACILLI ML - [facility] Permit #[id number] [address] [place] [address] DEPARTMENT OF PATHOLOGY, [address] [place] [address] [facility] Permit #[id number] Albin Mario M.D. Director Mayra Pan M.D. Network Lead 193 RUN DATE: 03/10/11 [facility] NMI LIVE PAGE 1 RUN TIME: 924 Specimen Inquiry RUN USER: INTERFACE Name: ALBIN LUEVANO Status: ANN MARIE GRECO Re03/07/11 Age/Sex: 61/M Unit#: [id number] Location: : 46 SPEC #: [id number] JOHNNY: 03/07/11 STATUS: KRISTEN FONTAINE #: [id number] RECD: 03/08/11-11[address] [facility] [address]: Nayely Ortiz MD SOURCE: WOUND ENTR: 03/08/11-1146 [facility] DR: Mable PALMA MD, Ramez [facility]: TOE,RIGHT ORDERED: CULT SENS/GS ACT [...] 4 IMIPENEM S <=1 DEPARTMENT OF PATHOLOGY, [address] [place] [address] [facility] Permit #[id number] Rex Xiong M.D. Network Lead RUN DATE: 03/10/11 [facility] NMI LIVE PAGE 2 RUN TIME: 924 Specimen Inquiry RUN USER: INTERFACE Name: ALBIN LUEVANO Status: ANN MARIE CLBeverly Re03/07/11 Age/Sex: 61/M Unit#: [id number] Location: [facility]. : 46 -- -- CONTINU ED Procedure Result Verified Site CULTURE SENSITIVITY Preliminary (continued) - +These results are deduced according to CLSI guidelines as they are related to tested antimicrobials with almost identical spectrum of activity. *These antibiotics are not available in the [facility] Formulary. Contact the Microbiology Department for any additional antibiotic reporting. *These antibiotics are not available in the [facility] Formulary. Contact the Microbiology Department for any additional antibiotic reporting. > GRAM STAIN SMEAR Final 03/08/11- 1521 ML POLYS MODERATE SMEAR: MOD GRAM POSITIVE COCCI MOD GRAM NEGATIVE BACILLI [facility] Permit #[id number] [address] [place] [address] DEPARTMENT OF PATHOLOGY, [address] [place] [address] [facility] Permit #[id number] Rex Xiong M.D. Network Lead 194 RUN DATE: 03/10/11 [facility] NMI LIVE PAGE 1 RUN TIME: 7193 Specimen Inquiry RUN USER: INTERFACE Name: ALBIN LUEVANO Status: ANN MARIE CLI Re03/07/11 Age/Sex: 61/M Unit#: [id number] Location: : 48 SPEC #: [id number] JOHNNY: 03/07/11 STATUS: RES REQ #: [id number] RECD: 03/08/11-11[address] [facility] [address]: Angel BADILLO,Nayely Chávez SOURCE: WOUND ENTR: 03/08/111146 [facility] DR: Mable PALMA MD, Ramez [facility]: TOE,RIGHT ORDERED: CULT SENS/GS Procedure Result [...] 4 IMIPENEM S <=1 DEPARTMENT OF PATHOLOGY, [address] [place] [address] [facility] Permit #[id number] Rxe Xiong M.D. Network Lead RUN DATE: 03/10/11 [facility] NMI LIVE PAGE 2 RUN TIME: 1437 Specimen Inquiry RUN USER: INTERFACE Name: ALBIN LUEVANO Status: ANN MARIE CLI Re03/07/11 Age/Sex: 61/M Unit#: [id number] Location: : 46 -- -- CONTINU ED Procedure Result Verified Site CULTURE SENSITIVITY Preliminary (continued) - +These results are deduced according to CLSI guidelines as they are related to tested antimicrobials with almost identical spectrum of activity. *These antibiotics are not available in the [facility] Formulary. Contact the Microbiology Department for any additional antibiotic reporting. *These antibiotics are not available in the [facility] Formulary. Contact the Microbiology Department for any additional antibiotic reporting. > GRAM STAIN SMEAR Final 03/08/11- 1521 ML POLYS MODERATE SMEAR: MOD GRAM POSITIVE COCCI MOD GRAM NEGATIVE BACILLI - [facility] Permit #[id number] [address] [place] [address] DEPARTMENT OF PATHOLOGY, [address] [place] [address] [facility] Permit #[id number] Albin Mario M.D. Director Mayra Pan M.D. Network Lead 195 Anion gap measurement may be of [...] SERUM LEVELS OF PSA MEASURED USING THE AGBRIELA Mompery ACCESS HYBRITECH IMMUNOASSAY SHOULD NOT BE INTERPRETED ABSOLUTE EVIDENCE OF THE PRESENCE OR ABSENCE OF DISEASE. THE PSA VALUE SHOULD BE USED IN CONJUNCTION WITH OTHER PERTINENT CLINICAL DIAGNOSTIC PROCEDURES. A PSA value in the range of 0.1 to 0.6 ng/ml is indeterminate if being used as an indicator of recurrent or residual disease. . 203 ----- RUN DATE: 11/27/08 [facility] NMI LIVE PAGE 1 RUN TIME: 1407 Specimen Inquiry RUN USER: INTERFACE -- Name: ALBIN LUEVANO Kandis Status: REG REF Re11/23/08 Age/Sex: 58/M Unit#: [id number] Location: [address] [place] [address].O.B. : 46 -- Specimen: [id number] SOUT Spec Date: 11/23/08 [facility] Dr: Varun Mccarty MD Spec Type: SURGICAL [...] 11/27/08 1407 -- -- DEPARTMENT OF PATHOLOGY, [address] [place] [address] [facility] Permit #[id number] Albin Mario M.D. Director Mayra Pan M.D. Sack Lifter Dir екатерина -- 204 Anion gap measurement may be of limited value in the presence of any alkalosis, especially in a combined acid base disorder. . 205 Note change in reference range as of 12/01/07. The change was based on recommendations from the [place] [employer]. 206 Please note change in [...] IN SELECTIVE PATIENTS <6.0%. PLEASE REFER TO CITIZEN OF [place] [employer] DIABETIC CARE GUIDELINES FOR FURTHER INFORMATION. 213 Anion gap measurement may be of limited value in the presence of any alkalosis, especially in a combined acid base disorder. . 214 Note change in reference range as of 12/01/07. The change was based on recommendations from the [place] [employer]. 215 Please note change in [...] change was based on recommendations from the [place] [employer]. 220 Please note change in [...] <0.06 ng/ml NOT SUPPORTIVE OF DIAGNOSIS OF [place] 0.06 - 0.50 ng/ml INDETERMINATE: SUGGEST SERIAL STUDIES IF CLINICALLY INDICATED. > 0.5 ng/ml CONSISTENT WITH DIAGNOSIS OF [place] . 224 * SERUM LEVELS OF PSA [...] change was based on recommendations from the [place] [employer]. 228 Please note change in reference range effective 07 . 229 Anion gap measurement may be of limited value in the presence of any alkalosis, especially in a combined acid base disorder. . 230 Note change in reference range as of 12/01/07. The change was based on recommendations from the [place] [employer]. 231 Please note change in reference range effective 07 . 232 The detection limit for ETHANOL is 10.0 mg/dl . Values less than 10.0 mg/dl cannot be accurately measured. . 233 PLEASE NOTE NEW REFERENCE RANGES. 234 THERAPEUTIC TARGET FOR THE TREATMENT OF DIABETES MELLITUS PATIENTS IS <7% HBA1C, AND IN SELECTIVE PATIENTS <6.0%. PLEASE REFER TO CITIZEN OF [place] [employer] DIABETIC CARE GUIDELINES FOR FURTHER [...] change was based on recommendations from the [place] [employer]. 240 Please note change in reference range effective 07 . 241 New Reference Range and Interpretation effective 01/13/02 TnI (ng/ml) INTERPRETATION <0.06 ng/ml NOT SUPPORTIVE OF DIAGNOSIS OF [place] 0.06 - 0.50 ng/ml INDETERMINATE: SUGGEST SERIAL STUDIES IF CLINICALLY INDICATED. > 0.5 ng/ml CONSISTENT WITH DIAGNOSIS OF [place] . 242 THE URINE SPECIMEN WAS TESTED [...] DIAGNOSTIC PROCEDURES. Procedures Date Code Description Status 03/21/2018 86605 EKG Tracing & Interpretation Completed 02/06/2018 54527 Sleep Study Unattended,HRT Rate,Oxygen Sat,Resp Completed Effort/Airflow 12/22/2017 23727 ECHO Transthorasic Realtime 2D W Doppler & Color Flow Completed Hosp 12/20/2017 84591 Removal Devitalized Tissue Wound Greater Than 20 Completed Square CM 12/20/2017 49976 Removal Devitalization Tissue Wound Less Than Equal 20 Completed Square CM 12/17/2017 60373 Removal Devitalization Tissue Wound Less Than Equal 20 Completed Square CM 12/10/2017 59582 Application Skin Graft Face,Scalp,Eyelids,Mouth, Neck Completed Up To 100CM 12/03/2017 20268 Removal Devitalization Tissue Wound Less Than Equal 20 Completed Square CM 11/26/2017 03342 Hyperbaric Oxygen Therapy By Physician Completed 11/26/2017 92815 Removal Devitalization Tissue Wound Less Than Equal 20 Completed Square CM 11/25/2017 44402 Hyperbaric Oxygen Therapy By Physician Completed 11/23/2017 57881 Hyperbaric Oxygen Therapy By Physician Completed 11/23/2017 69862 Apply Total Contact Leg Cast Completed 11/18/2017 64390 Hyperbaric Oxygen Therapy By Physician Completed 11/17/2017 87473 Hyperbaric Oxygen Therapy By Physician Completed 11/16/2017 12575 Hyperbaric Oxygen Therapy By Physician Completed 11/12/2017 02721 Hyperbaric Oxygen Therapy By Physician Completed 11/12/2017 09656 Removal Devitalization Tissue Wound Less Than Equal 20 Completed Square CM 11/11/2017 92327 Hyperbaric Oxygen Therapy By Physician Completed 11/10/2017 07891 Hyperbaric Oxygen Therapy By Physician Completed 11/09/2017 07455 Hyperbaric Oxygen Therapy By Physician Completed 11/05/2017 60374 Hyperbaric Oxygen Therapy By Physician Completed 11/04/2017 65451 Hyperbaric Oxygen Therapy By Physician Completed 11/03/2017 78473 Hyperbaric Oxygen Therapy By Physician Completed 11/02/2017 33075 Hyperbaric Oxygen Therapy By Physician Completed 10/29/2017 44401 Removal Devitalization Tissue Wound Less Than Equal 20 Completed Square CM 10/28/2017 01595 Hyperbaric Oxygen Therapy By Physician Completed 10/27/2017 24805 Hyperbaric Oxygen Therapy By Physician Completed 10/26/2017 21334 Hyperbaric Oxygen Therapy By Physician Completed 10/22/2017 51381 Hyperbaric Oxygen Therapy By Physician Completed 10/22/2017 74837 Removal Devitalization Tissue Wound Less Than Equal 20 Completed Square CM 10/21/2017 22524 Hyperbaric Oxygen Therapy By Physician Completed 10/20/2017 31466 Hyperbaric Oxygen Therapy By Physician Completed 10/19/2017 53529 Hyperbaric Oxygen Therapy By Physician Completed 10/15/2017 18084 Hyperbaric Oxygen Therapy By Physician Completed 10/14/2017 01519 Hyperbaric Oxygen Therapy By Physician Completed 10/14/2017 06852 Removal Devitalization Tissue Wound Less Than Equal 20 Completed Square CM 10/12/2017 88553 Hyperbaric Oxygen Therapy By Physician Completed 10/11/2017 80845 EKG, Interpretation Only Completed 10/08/2017 62248 Apply Total Contact Leg Cast Completed 10/01/2017 95939 Apply Total Contact Leg Cast Completed 09/17/2017 18475 Application Skin Graft Face,Scalp,Eyelids,Mouth, Neck Completed Up To 100CM 09/10/2017 77265 Application Skin Substitute Graft Trunk,Arms Lets Up Completed To 100 SQ CM 08/27/2017 78323 Removal Devitalized Tissue Wound Greater Than 20 Completed Square CM 08/27/2017 98892 Removal Devitalization Tissue Wound Less Than Equal 20 Completed Square CM 08/13/2017 06920 Hyperbaric Oxygen Therapy By Physician Completed 08/12/2017 85731 Hyperbaric Oxygen Therapy By Physician Completed 08/11/2017 07398 Hyperbaric Oxygen Therapy By Physician Completed 08/06/2017 87326 Hyperbaric Oxygen Therapy By Physician Completed 08/04/2017 71809 Hyperbaric Oxygen Therapy By Physician Completed 08/03/2017 21332 Hyperbaric Oxygen Therapy By Physician Completed 08/02/2017 67503 Hyperbaric Oxygen Therapy By Physician Completed 07/30/2017 09251 Hyperbaric Oxygen Therapy By Physician Completed 07/29/2017 96743 Hyperbaric Oxygen Therapy By Physician Completed 07/28/2017 56171 Hyperbaric Oxygen Therapy By Physician Completed 07/27/2017 28038 Hyperbaric Oxygen Therapy By Physician Completed 07/23/2017 33100 Debridement Muscle/Fascia,Epidermis/Dermis/Tissue,1St Completed 20 SQ CM 07/23/2017 79125 Debridement Skin,& sq Tissue Completed 07/22/2017 82571 Hyperbaric Oxygen Therapy By Physician Completed 07/21/2017 07873 Hyperbaric Oxygen Therapy By Physician Completed 07/20/2017 77720 Hyperbaric Oxygen Therapy By Physician Completed 07/19/2017 26324 Hyperbaric Oxygen Therapy By Physician Completed 07/15/2017 44899 Hyperbaric Oxygen Therapy By Physician Completed 07/14/2017 14043 Hyperbaric Oxygen Therapy By Physician Completed 07/13/2017 58250 Hyperbaric Oxygen Therapy By Physician Completed 07/12/2017 25697 Hyperbaric Oxygen Therapy By Physician Completed 07/02/2017 80772 Hyperbaric Oxygen Therapy By Physician Completed 07/01/2017 95100 Hyperbaric Oxygen Therapy By Physician Completed 06/30/2017 98683 Hyperbaric Oxygen Therapy By Physician Completed 06/29/2017 93716 Hyperbaric Oxygen Therapy By Physician Completed 06/28/2017 48494 Hyperbaric Oxygen Therapy By Physician Completed 06/28/2017 84622 Hyperbaric Oxygen Therapy By Physician Completed 06/25/2017 70320 Hyperbaric Oxygen Therapy By Physician Completed 06/24/2017 75122 Hyperbaric Oxygen Therapy By Physician Completed 06/24/2017 24152 Removal Devitalization Tissue Wound Less Than Equal 20 Completed Square CM 06/24/2017 28420 Debridement Skin,& sq Tissue Completed 06/23/2017 70209 Hyperbaric Oxygen Therapy By Physician Completed 06/23/2017 61126 Hyperbaric Oxygen Therapy By Physician Completed 06/18/2017 40327 Debridement Skin, Subcutaneous Tissue & Muscle Completed 06/11/2017 94570 Apply Total Contact Leg Cast Completed 06/04/2017 36507 Removal Devitalization Tissue Wound Less Than Equal 20 Completed Square CM 06/04/2017 20264 Debridement Muscle/Fascia,Epidermis/Dermis/Tissue,1St Completed 20 SQ CM 06/04/2017 15469 Debridement Skin,& sq Tissue Completed 05/28/2017 78710 Debridement Completed Muscle/Fascia,Epidermis/Dermis/Tissue,Addtl 20 SQ CM 05/28/2017 70769 Debridement Skin, Subcutaneous Tissue & Muscle Completed 05/21/2017 90494 Debridement Skin, Subcutaneous Tissue & Muscle Completed 05/02/2017 16120 ECHO Transthorasic Realtime 2D W Doppler & Color Flow Completed Hosp 04/13/2017 74759 Amputation Metatarsal W/Toe Completed 03/29/2017 76535 EKG Tracing & Interpretation Completed 01/25/2017 09619471 Colonoscopy Completed 11/12/2016 51379 EKG Tracing & Interpretation Completed 04/15/2016 53961 Holter Monitor Review (24 hr)dr review & interp only Completed 04/14/2016 77183 ECG Monitor/Recording W/Visual Superimposition Completed Scanning 03/31/2016 24034 EKG Tracing & Interpretation Completed 03/23/2016 64779 Sleep Study Unattended,HRT Rate,Oxygen Sat,Resp Completed Effort/Airflow 03/23/2016 72043 ECHO Transthoracic, Real-Time 2D With Doppler And Completed Color Flow 02/26/2016 27396 EKG Tracing & Interpretation Completed 07/15/2012 [id number] Diabetic Retinal Eye Exam Completed 11/23/2008 22125436 Colonoscopy Completed 12/09/2007 43228 Treadmill Interp/Report Only Completed 12/09/2007 82424 Treadmill Interp/Report Only Completed 12/09/2007 85991 Stress Test Supervsn W/Out I/R Completed 12/06/2007 46078 EKG Tracing & Interpretation Completed 12/06/2007 17647 EKG Tracing & Interpretation Completed Encounters Type Date Location Provider Dx Diagnosis Office Visit 03/15/2018 [facility] Lazaro Shah E11.610 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 [place] [facility] Rex Casarez mellitus w diabetic neuropathic arthropathy Office Visit 01/26/2018 Orthopedic Marlon Buckley 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, left ankle E11.621 Type 2 diabetes mellitus with foot ulcer Office Visit 01/21/2018 10:15a Wound Care Steffen Rojas, 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 Center [facility] , FACS of left heel, stage 4 S81.802A Unspecified open wound, left lower leg, initial encounter E08.621 Diabetes mellitus due to underlying condition w foot ulcer E66.01 Morbid (severe) obesity due to excess calories E11.621 Type 2 diabetes mellitus with foot ulcer M86.271 Subacute osteomyelitis, right ankle and foot Office Visit 01/10/2018 11:00a Orthopedic Marlon Buckley L97.429 Non-prs Services Of chronic ulcer C.M.AMartita of left heel and midfoot w unsp severt Office Visit 01/04/2018 8:30a [facility] Cinthia M25.372 Other MD Wanda instability, left ankle L97.429 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 atrial Hospitalists fibrillation D64.9 Anemia, unspecified K92.2 Gastrointestinal hemorrhage, unspecified L97.429 Non-prs chronic ulcer of left heel and midfoot w unsp severt E11.621 Type 2 diabetes mellitus with foot ulcer Office Visit 12/31/2017 [facility] M25.372 Other 2:08p cecille Dockery M.D. 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 instability, left Hospitalists ankle L97.429 Non-prs chronic ulcer of left heel and midfoot w [facility] severt E11.621 Type 2 diabetes mellitus with foot ulcer I48.91 Unspecified atrial fibrillation D64.9 Anemia, unspecified Office Visit 12/29/2017 11:41a Orthopedic Gertrude M25.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 , Services Of Rex Hankins left ankle C.M.A. M25.572 Pain in left ankle and joints of left foot Office Visit 12/28/2017 [facility] I48.91 Unspecified 2:06p cecille Dockery NP atrial Hospitalists fibrillation D64.9 Anemia, unspecified L97.429 Non-prs chronic ulcer of left heel and midfoot w [facility] severt E11.621 Type 2 diabetes mellitus with foot ulcer Office Visit 12/27/2017 [facility] I48.91 Unspecified 2:06p cecille Dockery NP atrial Hospitalists fibrillation D64.9 Anemia, unspecified E11.621 Type 2 diabetes mellitus with foot ulcer L97.429 Non-prs chronic ulcer of left heel and midfoot w unsp severt Office Visit 12/27/2017 9:55a George Ana [facility] [place] M25.572 Pain in left Infectious Rex Barnhart ankle and Diseases joints of left foot I87.2 Venous insufficiency (chronic) (peripheral) L89.529 Pressure ulcer of left ankle, unspecified stage Office Visit 12/26/2017 [facility] I48.91 Unspecified 2:05p cecille Dockery M.D. atrial Hospitalists fibrillation D64.9 Anemia, unspecified L97.429 Non-prs chronic ulcer of left heel and midfoot w unsp severt E11.621 Type 2 diabetes mellitus with foot ulcer Office Visit 12/25/2017 [facility] D64.9 Anemia, 2:05p cecille Dockery M.D. unspecified Hospitalists I48.91 Unspecified atrial fibrillation L97.429 Non-prs chronic ulcer of left heel and midfoot w unsp severt E11.621 Type 2 diabetes mellitus with foot ulcer Office Visit 12/24/2017 [facility] D64.9 Anemia, 2:05p cecille Dockery M.D. unspecified Hospitalists I95.9 Hypotension, unspecified I48.91 Unspecified atrial fibrillation L97.429 Non-prs chronic ulcer of left heel and midfoot w [facility] severt E11.621 Type 2 diabetes mellitus with foot ulcer Office Visit 12/23/2017 [facility] D64.9 Anemia, 2:04p cecille Dockery M.D. unspecified Hospitalists I95.9 Hypotension, unspecified I48.91 Unspecified atrial fibrillation E11.621 Type 2 diabetes mellitus with foot ulcer L97.429 Non-prs [facility] Office Visit 12/23/2017 9:35a [facility] M25.572 Pain in left Infectious Rex Barnhart ankle and Diseases joints of left foot M86.672 Other chronic osteomyelitis, left ankle and foot M86.671 Other chronic osteomyelitis, right ankle and foot I87.2 Venous insufficiency (chronic) (peripheral) Office Visit 12/22/2017 [facility] D64.9 Anemia, 2:04p cecille Dockery M.D. 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 Office Visit 12/21/2017 [facility] Debi I48.91 Unspecified atrial 2:04p Assoc,pc Root, DO fibrillation Hospitalists R06.00 Dyspnea, unspecified M86.672 [...] Obstructive sleep 11:00a Sleep Services Of PAUL Oliva RN, apnea (adult) [facility] TAR HEATER OPERATOR-BC (pediatric) R09.02 Hypoxemia E66.01 Morbid (severe) obesity due to excess calories Z68.42 Body mass index (BMI) 45.0-49.9, adult Office Visit 12/09/2017 4:00p [facility] Internal Ramez Lopez E11.69 Type 2 [...] Dima Keller 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 Center AT [facility] MD Maria Ines of left heel, stage 4 M86.271 Subacute osteomyelitis, right ankle and foot Office Visit 10/26/2017 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 For [place] 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 Infectious Rex Barnhart of left heel, Diseases stage 4 E11.621 Type 2 diabetes mellitus with foot ulcer M86.171 Other acute osteomyelitis, right ankle and foot E11.69 Type 2 diabetes mellitus with other specified complication Office Visit 09/22/2017 1:45p Wound Care Mayra Arita 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 Center AT [facility] MD Ger of left heel, stage 4 Office Visit 08/24/2017 1:30p Wound Care Lazaro Shah E11.621 Type 2 diabetes Center AT [facility] Rex Casarez mellitus with foot ulcer 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 of left heel, stage 4 Office Visit 08/20/2017 10:00a Wound Care Steffen Rojas 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 Center AT [facility] MD FACS of left heel, stage 4 L89.610 Pressure [...] Shah E11.621 Type 2 diabetes Center AT [facility] Rex Casarez mellitus with foot ulcer 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 of left heel, stage 4 M86.172 Other acute osteomyelitis, left ankle and foot E66.01 Morbid (severe) obesity due to excess calories Office Visit 08/06/2017 11:00a Wound Care Steffen Rojas 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 Center AT [facility] MD FACS of left heel, stage 4 Office Visit 07/30/2017 11:00a Wound Care Steffen Rojas 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 Center AT [facility] MD FACS of left heel, stage 4 L89.610 Pressure [...] Office Visit 07/02/2017 1:30p Wound Care Lazaro Shah 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 Center AT [facility] Rex Casarez of left heel, stage 4 E11.621 Type 2 diabetes mellitus with foot ulcer E66.01 Morbid (severe) obesity due to excess calories Office Visit 06/29/2017 12:45p Wound Care Lazaro Shah 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 Center AT [facility] Rex Casarez of left heel, stage 4 L89.610 Pressure ulcer of right heel, unstageable E11.621 Type 2 diabetes mellitus with foot ulcer Office Visit 06/28/2017 1:30p Wound Care Aretha Oliva, T81.31xA Disruption of Center AT [facility] PAUL, RN, TAR HEATER OPERATOR-BC external operation (surgical) wound, NEC, init L89.622 Pressure ulcer of left heel, stage 2 S81.801A Unspecified open wound, right lower leg, initial encounter M86.172 Other acute osteomyelitis, left ankle and foot Office Visit 06/23/2017 [facility] Mayra Cyr 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 2:00p AT [facility] of left heel, stage 4 Office Visit 05/11/2017 [facility] Yves L89.622 Pressure ulcer 9:36a Assoc,cecille Valle NP of left heel, Hospitalists stage 2 L03.116 Cellulitis of left lower limb F10.239 Alcohol dependence with withdrawal, unspecified J96.01 Acute respiratory failure with hypoxia Office Visit 05/10/2017 [facility] Peggy L89.622 Pressure ulcer 9:33a Assoc,cecille Valle CALENDER MACHINE OPERATOR of left heel, Hospitalists stage 2 L03.116 Cellulitis of left lower limb F10.239 Alcohol dependence with withdrawal, unspecified J96.01 Acute respiratory failure with hypoxia Office Visit 05/09/2017 9:31a [facility] [place] L89.622 Pressure ulcer Assoc,cecille Payne M.D.,FACP of left heel, Hospitalists stage 2 L03.116 Cellulitis of left lower limb F10.239 Alcohol dependence with withdrawal, unspecified Office Visit 05/08/2017 9:23a [facility] [place] L89.622 Pressure ulcer Assoc,cecille Payne M.D.,FACP of left heel, Hospitalists stage 2 J96.01 Acute respiratory failure with hypoxia L03.116 Cellulitis of left lower limb Office Visit 05/07/2017 9:22a [facility] J96.01 Acute respiratory Assoc,cecille Arguelles D.O. failure with Hospitalists hypoxia L03.116 Cellulitis of left lower limb F10.239 Alcohol dependence with withdrawal, unspecified L89.622 Pressure ulcer of left heel, stage 2 Office Visit 05/06/2017 9:21a [facility] J96.01 Acute respiratory Assoc,cecille Arguelles D.O. failure with Hospitalists hypoxia L03.116 Cellulitis of left lower limb F10.239 Alcohol dependence with withdrawal, unspecified L89.622 Pressure ulcer of left heel, stage 2 Office Visit 05/05/2017 9:19a [facility] J96.01 Acute respiratory Assoc,cecille Arguelles D.O. failure with Hospitalists hypoxia L03.116 Cellulitis of left lower limb F10.239 Alcohol dependence with withdrawal, unspecified L89.622 Pressure ulcer of left heel, stage 2 Office Visit 05/04/2017 9:17a [facility] J96.01 Acute respiratory Assoc,cecille Arguelles D.O. failure with Hospitalists hypoxia L03.116 Cellulitis of left lower limb F10.239 Alcohol dependence with withdrawal, unspecified L89.622 Pressure ulcer of left heel, stage 2 Office Visit 05/03/2017 [facility] [place] T81.31xA Disruption of 10:07a For Patricia Barnhart M.D. 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 failure with Hospitalists hypoxia L03.116 Cellulitis of left lower limb F10.239 Alcohol dependence with withdrawal, unspecified L89.622 Pressure ulcer of left heel, stage 2 Office Visit 05/02/2017 9:12a [facility] Lydia J96.01 Acute respiratory Assoc,cecille Arguelles D.O. failure with Hospitalists hypoxia L03.116 Cellulitis of left lower limb F10.239 Alcohol dependence with withdrawal, unspecified L89.622 Pressure ulcer of left heel, stage 2 Office Visit 05/01/2017 9:10a [facility] Lydia L03.116 Cellulitis of Assoc,cecille Arguelles D.O. left lower limb Hospitalists L89.622 Pressure ulcer of left heel, stage 2 F10.10 Alcohol abuse, uncomplicated I48.0 Paroxysmal atrial fibrillation Office Visit 04/30/2017 8:00a [facility] Jose R L03.116 Cellulitis of Assoc,cecille Pereira M.D. left lower limb Hospitalists L89.622 Pressure ulcer of left heel, stage 2 F10.10 Alcohol abuse, uncomplicated I48.0 Paroxysmal atrial fibrillation Office Visit 04/12/2017 Surgical Steffen Guerrero M86.172 Other acute 7:00a [facility] MD Bob, osteomyelitis, left FACS ankle [facility] Other acute 9:55a Assoc,cecille Gandara, SHANTELL osteomyelitis, left Hospitalists ankle and foot L97.509 Non-pressure chronic ulcer oth prt unsp foot w unsp severity E11.621 Type 2 diabetes mellitus with foot ulcer E66.01 Morbid (severe) obesity due to excess calories Office Visit 04/11/2017 [facility] Riky M86.172 Other acute 9:53a Assoc,cecille Nelson M.D. osteomyelitis, left Hospitalists ankle and foot L97.509 Non-pressure chronic ulcer oth prt unsp foot w unsp severity E11.621 Type 2 diabetes mellitus with foot ulcer E66.01 Morbid (severe) obesity due to excess calories Office Visit 03/29/2017 [facility] Z01.810 Encounter for 4:00p Cardiology Aung Garcia DO preprocedural [facility] cardiovascular examination I10 Essential (primary) hypertension E11.9 Type 2 diabetes mellitus without complications R60.0 Localized edema E66.8 Other obesity I48.91 Unspecified atrial fibrillation Office Visit 11/12/2016 4:00p [facility] Steffen S. I48.91 Unspecified atrial Of [place], DO fibrillation FACC I10 Essential (primary) hypertension G47.9 Sleep disorder, unspecified E11.9 Type 2 diabetes mellitus without complications Office Visit 08/10/2016 3:10p [facility] Internal Nurse Visit I10 Essential ( primary) Medicine - C hypertension [place] Office Visit 07/10/2016 4:00p [facility] Steffen S. I48.91 Unspecified atrial Of [place], DO fibrillation FACC G47.9 Sleep disorder, unspecified I10 Essential (primary) hypertension Office Visit 03/31/2016 4:00p [facility] Steffen S. I48.91 Unspecified atrial Of [place] Garcia, DO fibrillation FACC E66.8 Other obesity I10 Essential (primary) hypertension G47.9 Sleep disorder, unspecified E78.00 Pure hypercholesterolemia, unspecified Office Visit 03/04/2016 [facility] Internal Ramez EMartita I48.91 Unspecified atrial 4:00p Violetta Akins M.D. fibrillation [place] Office Visit 02/26/2016 [facility] I48.91 Unspecified atrial 9:15a Assoc,pc [place] fibrillation Hospitalists [place], [place] E11.9 Type 2 diabetes mellitus without complications E66.01 Morbid (severe) obesity due to excess calories I10 Essential (primary) hypertension Office Visit 02/26/2016 1:00p [facility] Internal Ramez Lopez I48.91 Unspecified atrial Violetta Akins M.D. fibrillation [place] E11.9 Type 2 diabetes mellitus without complications R09.02 Hypoxemia Office Visit 10/24/2015 2:45p [facility] G47.9 Sleep disorder, [facility] Marcel unspecified [facility] E66.01 Morbid (severe) obesity due to excess calories R09.02 Hypoxemia Office Visit 05/28/2015 2:40p [facility] Internal Ramez Lopez E11.9 Type 2 diabetes Violetta Akins M.D. mellitus without [place] complications I10 Essential (primary) hypertension E78.0 Pure hypercholesterolemia F41.3 Other mixed anxiety disorders Z23 Encounter for immunization Office Visit 11/20/2014 3:20p [facility] Internal Ramez Lopez 707.15 Ulcer Of Violetta Akins M.D. Other Part Of [place] Foot Office Visit 09/25/2014 4:00p Head Worker Internal Ramez Lopez 782.3 Edema Violetta Akins M.D. [place] 250.00 Diabetes Mellitus W/O Compl Type II Or Unspec Controlled 401.1 Hypertension Benign 272.0 Hypercholesterolemia Pure 300.09 Anxiety States Other V03.82 Streptococcus Pneumoniae Vaccination Spec Other Office Visit 10/24/2013 2:00p [facility] Work[facility] Internal Ramez Lopez 729.5 Pain In Limb Violetta Akins M.D. [place] Office Visit 02/06/2013 3:40p [facility] Internal Ramez Lopez 465.9 URI Upper Violetta Akins M.D. Respiratory [place] Infections Acute Unspec Sites 250.00 Diabetes Mellitus W/O Compl Type II Or Unspec Controlled Office Visit 06/30/2012 4:00p [facility] Internal Ramez Lopez 707.19 Ulcer Of Violetta Akins M.D. Other Part Of [place] Lower Limb 459.81 Venous Insufficiency (Peripheral) Unspec Office Visit 03/31/2012 1:00p [facility] Internal Caitlyn Karen, 250.00 Diabetes Medicine - N.P. Mellitus W/O [place] Compl Type II Or Unspec Controlled v03.82 Streptococcus Pneumoniae Vaccination Spec Other Office Visit 12/10/2011 3:30p Head Worker Internal Caitlyn Karen, 486 Pneumonia Medicine - N.P. Organism Unspec [place] 278.01 Obesity Morbid 401.1 Hypertension Benign 272.0 Hypercholesterolemia Pure 250.00 Diabetes Mellitus W/O Compl Type II Or Unspec Controlled 790.21 Impaired Fasting Glucose Office Visit 11/19/2011 4:00p [facility] Internal Caitlyn Karen, 486 Pneumonia Medicine - N.P. Organism Unspec [place] 401.1 Hypertension Benign 272.0 Hypercholesterolemia Pure 278.01 Obesity Morbid Office Visit 03/03/2011 3:40p DO Not Use Head Worker Ramez Lopez 790.21 Impaired Fasting AT Soledad Akins M.D. Glucose V04.81 Need For Prophylactic Vaccination & Inoculation/Influenza 401.1 Hypertension Benign 300.09 Anxiety States Other 272.0 Hypercholesterolemia Pure 707.15 Ulcer Of Other Part Of Foot Office Visit 01/24/2010 11:40a DO Not Use Head Worker Ramez Lopez 401.1 Hypertension Benign AT Soledad Akins M.D. 300.09 Anxiety States Other 272.0 Hypercholesterolemia Pure V04.81 Need For Prophylactic Vaccination & Inoculation/Influenza v04.81 Need For Prophylactic Vaccination & Inoculation/Influenza Office Visit 01/02/2009 1:30p DO Not Use Head Worker AT [facility] EMartita 707.15 Ulcer Of Other [place] Rex Akins Part Of Foot 401.1 Hypertension Benign 272.0 Hypercholesterolemia Pure 300.09 Anxiety States Other Office Visit 10/08/2008 2:00p [facility] 787.[facility] States Other Office Visit 08/07/2008 3:00p [facility] Ramez E. 789.00 Pain Abdominal Assoc AT Rex Akins Unspec Site [facility] 787.91 Diarrhea 401.1 Hypertension Benign Office Visit 04/24/2008 3:00p [facility] Ramez E. V72.83 Examination Assoc AT Rex Akins Preoperative Other [facility] Spec 272.0 Hypercholesterolemia Pure 401.1 Hypertension Benign 300.09 Anxiety States Other Office Visit 12/29/2007 [facility] Ramez E. 272.0 Hypercholesterolemia Pure 2:30p Assoc AT Rex Akins [facility] 401.1 Hypertension Benign Office Visit 12/06/2007 [facility] Ramez E. 272.0 Hypercholesterolemia Pure 10:45a Assoc AT Rex Akins [facility] 786.05 Shortness Of Breath 401.1 Hypertension Benign V72.83 Examination Preoperative Other Spec Office Visit 11/07/2007 2:45p [facility] Ramez E. 401.1 Hypertension Benign Assoc AT Rex Akins [facility] 300.09 Anxiety States Other Office Visit 08/18/2007 [facility] Ramez E. 401.1 Hypertension Benign 3:15p Assoc AT Rex Akins [facility] Office Visit 07/06/2007 [facility] Ramez E. 401.1 Hypertension Benign 3:30p Assoc AT Rex Akins [facility] Office Visit 01/05/2007 [facility] Ramez E. 272.0 Hypercholesterolemia Pure 3:15p Assoc AT Rex Akins [facility] 401.1 Hypertension Benign 300.09 Anxiety States Other V04.81 Need For Prophylactic Vaccination & Inoculation/Influenza Plan of Treatment Future Appointment(s):04/15/2018 2:15 pm - Marlon Buckley MD at [facility]05/10/2018 2:15 pm - Aretha Oliva DNP, RN, TAR HEATER OPERATOR- at [facility]03/23/2018 - Ramez Akins M.D.E11.621 Type 2 diabetes mellitus with foot oyxkeK64.33 Obstructive sleep apnea (adult) ( pediatric)I48.91 Unspecified atrial zzzgbvlvildpC63.0 Localized edemaReferral: Rosas Kumar MD, Surgery,KzeuwknE21.672 Charcot's joint, left ankle and footReferral:[facility]/ Nurse SpecK92.2 Gastrointestinal hemorrhage, unspecified
--- OUTSIDE RECORDS SUMMARY | 2018-04-07 15:40 | XMS REPORT | Continuity of Care Document ---
:1950 External Reference #:[id number] Author Name Joceline Moscoso Care Team Providers Name Role Phone Ramez Akins III, MD Primary Care Physician Unavailable Payers Type Date Identification Numbers Payment Provider Subscriber Policy Number: [id number] Medicare Albin Luevano PayID: [id number] [address] [place] [address] Expires: 2018 Policy Number: [id number] Medicare Albin Luevano PayID: [id number] [address] [place] [address] Policy Number: [id number] [employer] Albin Luevano Group Number: [id number] [address] PayID: [id number] [place] [address] Advance Directives Description No Information Available Problems [...] History Date Family Member(s) Problem(s) Comments General [place] General Cancer : (age 50 Years) Father due to [place] Mother due to Colon Cancer () Social History Type Date Description Comments Sex Unknown Marital Status Lives With 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 /2018 s every day Garcia, DO FACC Spironolactone 03/21 Active Tablets 25mg 30tab Take 1/2 by R60.0 Steffen S. /2017 s mouth every Garcia, day DO FACC Losartan 08/14 Active Tablets 100-25mg 90tab take 1 tablet Steffen S. Potassium/ s by mouth every Garcia, chlorothiazide day DO FACC Xarelto 02/27 Active Tablets 20mg 90tab Take 1 Tablet Ramez E. /2015 s By Mouth Mable, Every Day M.D. Atorvastatin 01/31 Active Tablets 20mg 90tab Take 1 Tablet E78.0 Ramez E. Calcium /2011 s By Mouth AT Mable, Bedtime M.D. Metoprolol 04/07 Active Tablets 100mg 90tab Take 1 Tablet Ramez E. Succinate ER ER 24HR s By Mouth Mable, Daily [...] week. Gabapentin Active Capsules 100mg 1 capsule three times daily. Ciprofloxacin Active Tablets 500mg 1 tab by mouth Unknown twice a day (6 more days of Tx) Omeprazole Active Capsules 40mg [address] every day before breakfast Ceftriaxone 09/29 Hx Solution 2gm 2 grams daily Bryn Sodium Rec iv x [facility] w[facility]. Metronidazole 09/28 Hx Tablets 500mg 30tab 1 tab by mouth M86.171 Bryn s every 12 hours D. - [facility], 12/08 M.D. Amlodipine 03/29 Hx Tablets 5mg 90tab 1 by mouth Steffen S. Besylate s every day Garcia, - DO [facility] 03/21 Amlodipine 11/27 Hx Tablets 10mg 90tab 1 by mouth Steffen S. Besylate /2016 s every day Garcia, - DO [facility] 03/29 Losartan 08/14 Hx Tablets 100-25mg 30tab 1 by mouth Ramez E. Potassium/[place] /2016 s every day Mable chlorothiazide - [...] tab po qhs 272.0 Ramez Lopez /2010 Adrianne Avery M.D. 01/31 Losartan 03/03 Hx Tablets 50-12.5mg 90tab take 1 tablet E78.0 Ramez Lopez Potassium/[place] s james Akins chlorothiazide Adrianne Goodman 08/24 Lisinopril/Hydr 10/16 Hx Tablets 20-12.5mg 90tab Take 1 Tablet 272.0 Ramez Lopez ochlorothiazide s Daily Adrianne Akins M.D. 03/03 Z Pack 09/03 Hx Tablets 250mg 6tabs 2 today 1 qd 4 Ramez Lopez days Adrianne Akins M.D. 03/03 Lisinopril/Hydr 01/24 Hx [...] q 4-6 Dior, taminophen /2007 s hours prsantana Silver MD 11/06 Lisinopril 09/18 Hx Tablets 10mg 90tab 1 po qd to Ramez Lopez /2007 s use with Adrianne Akins M.D. 09/25 Lisinopril/HCT /2008 Z 12.5 Zestoretic 07/05 Hx Tablets 20-12.5 90tab po qd Ramez EMartita Adrianne Avery M.D. 03/03 Lisinopril 07/05 Hx Tablets 10mg 90tab 1 po qd Ramez E. Adrianne Avery M.D. 09/18 Zestoretic Hx Tablets 10/12.5 90tab 1 PO qd Ramez E. Adrianne Avery M.D. 07/05 Lipitor Hx Tablets 20mg 90tab one tab po qhs Ramez E. Adrianne Avery M.D. 01/24 Aspirin Hx Tablets 81mg 1 PO qd- on hold on - xarelto 03/31 Toprol XL Hx Tablets 100mg 30tab 1 PO qd Ramez E. / ER 24HR Adrianne Avery M.D. 04/07 Lexapro Hx Tablets 10mg 90tab 1 PO qd Lety, s MD Mikhail - 05/17 Valium Hx Tablets 5mg 90tab 1 po tid prn Ramez E. s to fill as Adrianne Akins M.D. 11/27 Prednisone Hx Tablets 10mg 30tab 5tabx 2days,4 Unknown s [id number] - 0uvpa2gbca,2ta 10/10 pg2ufya,1tabxd /2013 ay. Levofloxacin Hx Tablets 750mg 7tabs 1 tab po qd x Ramez E. 7 days Adrianne Akins M.D. 10/10 Ventolin HFA Hx Aerosol 108(90Bas 1unit 2 puffs po qid Unknown / e) mcg/ac s prn - 10/24 Sulfamethoxazol Hx Tablets 800-160mg 20tab 1 po bid Unknown e/Trimethoprim /0000 s DS - 10/10 Mupirocin Hx Ointment 2% 22gm apply to skin lesions twice - daily 10/24 Doxycycline Hx Capsules 100mg one tablet Unknown Hyclate three times a - day (per 09/27 Bronwyn [facility] /2018 DC) Immunizations CPT Code Status Date Vaccine Lot # [id number] Given 01/23/2016 Flu Vaccine NOS 52538 Given 05/28/2015 Tdap - Tetanus/Diptheria/Acellular Pertussis [id number] 26945 Given 02/07/2015 Fluzone High Dose 87404 Given 09/25/2014 Pneumococcal Conjugate Vaccine 13 Valent For [id number] Intramuscular Use 31446 Given 01/23/2014 Fluzone High Dose 20779 Given 10/10/2013 Zoster (Zostavax) [id number] Given 03/22/2013 Flu Vaccine NOS 87372 Given 03/31/2012 Pneumonia Vaccine [id number] Given 02/11/2012 Fluzone Vaccine 26094 Given 03/03/2011 Influenza Virus 3Yrs & Over [id number] 80698 Given 01/24/2010 Influenza Virus 3Yrs & Over [id number] 84778 Given 02/07/2009 Influenza Virus 3Yrs & Over 10039 Given 02/07/2009 Influenza Virus 3Yrs & Over [id number] 58963 Given 01/05/2007 Influenza Virus 3Yrs & Over [id number] 90365 Given 06/02/2005 Td (History By Patient) Vital Signs Date Vital Result Comment 03/22/2018 2:46pm Height 75 inches 6'3" Heart [...] 48.1 kg/m2 Ejection Fraction 60-65% 12/22/17 echo [facility] 01/26/2018 3:04pm Height 75 inches 6'3" Heart [...] Result H/L Range Note Laboratory test 12/21/2017 [facility] Troponin-I 0.02 ng/mL < 0.[address] ([place]) [place] [address] [phone] Comp Metabolic 12/21/2017 [facility] Sodium 135 mmol/L N 135- [address] [place] [address] [phone] Potassium 4.0 mmol/L N 3.5-5.0 Chloride 103 [...] >60 Egfr 105.3 >60 1 Inr/Protime 12/21/2017 [facility] Inr 1.03 High 0.77-1.[address] [place] [address] [phone] Urine Culture And 12/21/2017 [facility] Urine SEE RESULT [address] [place] [place] [address] [phone] Laboratory test 12/21/2017 [facility] Lactic Acid 1.6 mmol/L N 0.5-2.0 [address] [place] [address] [phone] Urinalysis Profile 12/21/2017 [facility] Urine Color Yellow [address] [place] [address] [phone] Urine Appearance Clear Urine Specific [place] 1.016 N 1.010-1.030 Urine pH 6.0 N 5-9 Urine Urobilinogen Negative Negative Urine Ketones Negative Negative Urine Protein Negative Negative Urine Leukocytes Trace Abnormal Negative Urine Blood 1+ Abnormal Negative Urine Nitrite Negative Negative Urine Bilirubin Negative Negative Urine Glucose Negative Negative Urine White Blood Cell Trace(0-5/hpf) Absent Urine Red Blood Cell Absent Absent Urine Bacteria Absent Absent CBC Auto 12/21/2017 [facility] White Blood 16.6 10^3/uL High 3.5-10.[address] [place] [address] [phone] Red Blood Count 2.70 10^6/uL Low 4.00-5.40 [...] High 1.5-7.7 Iron & Iron Binding 12/21/2017 [facility] Iron 56 g/dL N 50- 212 [address] [place] [address] [phone] Unsaturated Iron Binding 298 g/dL Total Iron Binding Capacity 354 g/dL N 250-450 Transferrin 253 mg/dL N 203-362 % Iron Saturation 16 % N 15-55 Laboratory test 12/21/2017 [facility] Magnesium 1.9 mg/dL N 1.9-2.7 [place] [address] [phone] C Reactive Protein 15.73 mg/L High <8.01 TSH (Thyroid Stim Horm) 6.97 mcIU/mL High 0.34-5.60 Ferritin 90.7 ng/mL N 24-336 Vitamin B12 348 pg/mL N 180-914 4 Laboratory test 12/21/2017 [facility] Pathologist Review (SEE NOTE) 5 [place] [address] [phone] Blood Culture SEE RESULT BELOW 6 Manual Differential 12/21/2017 [facility] Immature 2 % N 0-9 [facility] [place] [address] [phone] Neutrophil % 78 % N 38-83 Band [...] N 0-0.2 Macrocytosis 1+ Laboratory test 12/09/2017 [facility] Hemoglobin A1c 5.1 5-7 finding Laboratory test 12/09/2017 [facility] Epifix 3.5X3.5 SEE RESULTS 7, [address] Mesh BELO <[place] [address] NOTE> [phone] Laboratory test 11/26/2017 [facility] Point of Care 108 mg/dL High 70-100 [address] [place] [address] [phone] Laboratory test 11/26/2017 [facility] Point of Care 134 mg/dL High 70-100 [address] [place], [place] [address] [phone] Laboratory test 11/26/2017 [facility] Point of Care 124 mg/dL High 70-100 [address] [place], [place] [address] [phone] Laboratory test 11/25/2017 [facility] Point of Care 108 mg/dL High 70-100 [address] [place] [address] [phone] Laboratory test 11/25/2017 [facility] Point of Care 130 mg/dL High 70-100 [address] [place] [address] [phone] Laboratory test 11/23/2017 [facility] Point of Care 123 mg/dL High 70-100 [address] [place], [place] [address] [phone] Laboratory test 11/23/2017 [facility] Point of Care 152 mg/dL High 70-100 [address] [place], [place] [address]19 [phone] Laboratory test 11/18/2017 [facility] Point of Care 112 mg/dL High 70-100 [address] [place], [place] [address] [phone] Laboratory test 11/18/2017 [facility] Point of Care 135 mg/dL High 70-100 [address] [place], [place] [address] [phone] Laboratory test 11/17/2017 [facility] Point of Care 99 mg/dL N 70-100 [address] [place], [place] [address] [phone] Laboratory test 11/17/2017 [facility] Point of Care 142 mg/dL High 70-100 [address] [place], [place] [address]28 [phone] Laboratory test 11/16/2017 [facility] Point of Care 112 mg/dL High 70-100 [address] [place] [address] [phone] Laboratory test 11/16/2017 [facility] Point of Care 154 mg/dL High 70-100 [address] [place], [place] [address] [phone] Laboratory test 11/15/2017 [facility] Point of Care 115 mg/dL High 70-100 [address] [place], [place] [address] [phone] Laboratory test 11/15/2017 [facility] Point of Care 117 mg/dL High 70-100 [address] [place] [address] [phone] Laboratory test 11/12/2017 [facility] Point of Care 124 mg/dL High 70-100 [address] [place] [address] [phone] Laboratory test 11/12/2017 [facility] Point of Care 143 mg/dL High 70-100 [address] [place], [place] [address] [phone] Laboratory test 11/11/2017 [facility] Point of Care 124 mg/dL High 70-100 [address] [place] [address] [phone] Laboratory test 11/11/2017 [facility] Point of Care 142 mg/dL High 70-100 [address] [place] [address] [phone] Laboratory test 11/10/2017 [facility] Point of Care 109 mg/dL High 70-100 [address] [place] [address] [phone] Laboratory test 11/10/2017 [facility] Point of Care 159 mg/dL High 70-100 [address] [place] [address] [phone] Laboratory test 11/09/2017 [facility] Point of Care 109 mg/dL High 70-100 [address] [place] [address] [phone] Laboratory test 11/09/2017 [facility] Point of Care 135 mg/dL High 70-100 [address] [place] [address] [phone] CBC Auto Diff 11/08/2017 [facility] White Blood 6.8 10^3/uL N 3.5-10.[address] [place] [address] [phone] Red Blood Count 3.93 10^6/uL Low 4.00-5.40 [...] Cells % 0.3 Comp Metabolic Panel 11/08/2017 [facility] Sodium 139 mmol/L N 135-[address] [place] [address] [phone] Potassium 3.9 mmol/L N 3.5-5.0 Chloride 101 [...] Egfr 100.0 >60 32 Laboratory test 11/08/2017 [facility] C Reactive 7.49 mg/L N < 8.[address] [place] [address] [phone] Laboratory test 11/08/2017 [facility] Point of Care 113 mg/dL High 70-100 [address] [place] [address] [phone] Laboratory test 11/08/2017 [facility] Point of Care 159 mg/dL High 70-100 [address] [place] [address] [phone] Laboratory test 11/05/2017 [facility] Point of Care 121 mg/dL High 70-100 [address] [place] [address] [phone] Laboratory test 11/05/2017 [facility] Point of Care 121 mg/dL High 70-100 [address] [place] [address] [phone] Laboratory test 11/04/2017 [facility] Point of Care 113 mg/dL High 70-100 [address] [place] [address] [phone] Laboratory test 11/04/2017 [facility] Point of Care 149 mg/dL High 70-100 [address] [place] [address] [phone] Laboratory test 11/03/2017 [facility] Point of Care 98 mg/dL N 70-100 [address] [place] [address] [phone] Laboratory test 11/03/2017 [facility] Point of Care 158 mg/dL High 70-100 [address] [place] [address] [phone] Laboratory test 11/02/2017 [facility] Point of Care 108 mg/dL High 70-100 [address] [place] [address] [phone] Laboratory test 11/02/2017 [facility] Point of Care 153 mg/dL High 70-100 [address] [place] [address] [phone] Comp Metabolic 11/01/2017 [facility] Sodium 137 N 135-[address] mmol/[place] [address] [phone] Potassium 4.0 mmol/L N 3.5-5.0 Chloride 100 [...] Egfr 100.0 >60 43 Laboratory test 11/01/2017 [facility] C Reactive 22.08 mg/L High <8.[address] [place] [address] [phone] CBC Auto Diff 11/01/2017 [facility] White Blood 7.8 N 3.5- 10.[address] Count 10^3/[place] [address] [phone] Red Blood Count 4.16 10^6/uL N 4.00-5.40 [...] Blood Cells % 0.1 Laboratory test 11/01/2017 [facility] Point of 94 mg/dL N 70- 100 44 finding [address] [facility] [place], [place] [address] [phone] Laboratory test 11/01/2017 [facility] Point of 154 mg/dL High 70-100 45 finding [address] [facility] [place] [address] [phone] Laboratory test 10/28/2017 [facility] Point of 99 mg/dL N 70- 100 46 finding [address] [facility] [place] [address] [phone] Laboratory test 10/28/2017 [facility] Point of 124 mg/dL High 70-100 47 finding [address] [facility] [place], [place] [address] [phone] Laboratory test 10/27/2017 [facility] Point of 127 mg/dL High 70-100 48 finding [address] [facility] [place] [address] [phone] Laboratory test 10/27/2017 [facility] Point of 97 mg/dL N 70- 100 49 finding [address] [facility] [place] [address] [phone] Laboratory test 10/26/2017 [facility] Point of 124 mg/dL High 70-100 50 finding [address] [facility] [place] [address] [phone] Laboratory test 10/26/2017 [facility] Point of 125 mg/dL High 70-100 [address] [place] [address] [phone] Laboratory test 10/26/2017 [facility] Point of 109 mg/dL High 70-100 [address] [place] [address] [phone] CBC Auto Diff 10/25/2017 [facility] White Blood 6.7 N 3.5- 10.[address] Count 10^3/[place] [address] [phone] Red Blood Count 4.32 10^6/uL N 4.00-5.40 [...] Cells % 0.1 Comp Metabolic Panel 10/25/2017 [facility] Sodium 139 mmol/L N 135-[address] [place] [address] [phone] Potassium 3.9 mmol/L N 3.5-5.0 Chloride 103 [...] Egfr 96.3 >60 53 Laboratory test 10/25/2017 [facility] C Reactive 4.74 mg/L N < 8.[address] [place] [address] [phone] Laboratory test 10/25/2017 [facility] Point of Care 118 mg/dL High 70-100 [address] [place] [address] [phone] Laboratory test 10/25/2017 [facility] Point of Care 117 mg/dL High 70-100 [address] [place] [address] [phone] Laboratory test 10/25/2017 [facility] Point of Care 99 mg/dL N 70-100 [address] [place] [address] [phone] Laboratory test 10/22/2017 [facility] Point of Care 101 mg/dL High 70-100 [address] [place] [address] [phone] Laboratory test 10/22/2017 [facility] Point of Care 132 mg/dL High 70-100 [address] [place] [address] [phone] Laboratory test 10/21/2017 [facility] Point of Care 111 mg/dL High 70-100 [address] [place] [address] [phone] Laboratory test 10/21/2017 [facility] Point of Care 180 mg/dL High 70-100 [address] [place] [address] [phone] Laboratory test 10/20/2017 [facility] Point of Care 119 mg/dL High 70-100 [address] [place] [address] [phone] Laboratory test 10/20/2017 [facility] Point of Care 115 mg/dL High 70-100 [address] [place] [address] [phone] Laboratory test 10/19/2017 [facility] Point of Care 123 mg/dL High 70-100 [address] [place] [address] [phone] Laboratory test 10/19/2017 [facility] Point of Care 134 mg/dL High 70-100 [address] [place] [address] [phone] CBC Auto Diff 10/18/2017 [facility] White Blood 6.5 N 3.5- 10.[address] Count 10^3/[place] [address] [phone] Red Blood Count 4.23 10^6/uL N 4.00-5.40 [...] Cells % 0.1 Comp Metabolic Panel 10/18/2017 [facility] Sodium 138 mmol/L N 135-[address] [place] [address] [phone] Potassium 3.7 mmol/L N 3.5-5.0 Chloride 102 [...] Egfr 90.7 >60 65 Laboratory test 10/18/2017 [facility] C Reactive 11.79 mg/L High <8.[address] [place] [address] [phone] Laboratory test 10/18/2017 [facility] Point of Care 117 mg/dL High 70-100 [address] [place] [address] [phone] Laboratory test 10/18/2017 [facility] Point of Care 153 mg/dL High 70-100 [address] [place] [address] [phone] Laboratory test 10/15/2017 [facility] Point of Care 100 mg/dL N 70-100 [address] [place] [address] [phone] Laboratory test 10/15/2017 [facility] Point of Care 115 mg/dL High 70-100 [address] [place] [address] [phone] Laboratory test 10/14/2017 [facility] Point of Care 144 mg/dL High 70-100 [address] [place], [place] [address] [phone] Laboratory test 10/14/2017 [facility] Point of Care 117 mg/dL High 70-100 [address] [place], [place] [address]213 [phone] Laboratory test 10/14/2017 [facility] Point of Care 93 mg/dL N 70-100 [address] [place] [address] [phone] Laboratory test 10/12/2017 [facility] Point of Care 169 mg/dL High 70-100 [address] [place] [address] [phone] Laboratory test 10/12/2017 [facility] Point of Care 135 mg/dL High 70-100 [address] [place] [address] [phone] Laboratory test 10/12/2017 [facility] Point of Care 107 mg/dL High 70-100 [address] [place] [address] [phone] CBC Auto Diff 10/11/2017 [facility] White Blood 6.9 N 3.5- 10.[address] Count 10^3/[place] [address] [phone] Red Blood Count 4.21 10^6/uL N 4.00-5.40 [...] Cells % 0.1 Comp Metabolic Panel 10/11/2017 [facility] Sodium 138 mmol/L N 135-[address] [place] [address] [phone] Potassium 4.0 mmol/L N 3.5-5.0 Chloride 104 [...] Egfr 91.8 >60 76 Laboratory test 10/11/2017 [facility] C Reactive 7.43 mg/L N < 8.[address] [place] [address] [phone] Laboratory test 10/11/2017 [facility] Point of Care 119 mg/dL High 70-100 [address] [place] [address] [phone] Laboratory test 10/11/2017 [facility] Point of Care 131 mg/dL High 70-100 [address] [place] [address] [phone] CBC Auto Diff 10/04/2017 [facility] White Blood 5.9 N 3.5- 10.[address] Count 10^3/[place] [address] [phone] Red Blood Count 4.27 10^6/uL N 4.00-5.40 [...] Cells % 0 Comp Metabolic Panel 10/04/2017 [facility] Sodium 134 mmol/L Low 135-145 [address] [place] [address] [phone] Potassium 3.9 mmol/L N 3.5-5.0 Chloride 100 [...] Egfr 98.7 >60 79 Laboratory test 10/04/2017 [facility] C Reactive 12.45 mg/L High <8.[address] [place] [address] [phone] Comp Metabolic 10/02/2017 [facility] Sodium 134 mmol/L Low 135 -[address] [place] [address] [phone] Potassium 3.8 mmol/L N 3.5-5.0 Chloride 98 [...] 94.0 >60 80 CBC Auto Diff 10/02/2017 [facility] White Blood 6.3 10^3/uL N 3.5-10.[address] [place] [address] [phone] Red Blood Count 4.29 10^6/uL N 4.00-5.40 [...] Blood Cells % 0.2 Laboratory test 10/02/2017 [facility] C Reactive 5.92 mg/L N < 8.[address] [place] [address] [phone] Wound 09/28/2017 [facility] Wound/Misc SEE RESULT 81, 82 Culture/Sensi [address] [place] [address] Stain [phone] CBC Auto Diff 09/17/2017 [facility] White Blood 5.8 N 3.5- 10.[address] Count 10^3/uL [place], [place] [address] [phone] Red Blood Count 4.18 10^6/uL N 4.0-5.4 [...] Blood Cells % 0 Basic Metabolic 09/17/2017 [facility] Sodium 135 mmol/L Low 139-[address] [place], [place] [address] [phone] Potassium 4.5 mmol/L N 3.5-5.0 Chloride 100 mmol/L Low 101-111 Co2 Carbon Dioxide 28 mmol/L N 22-32 Anion Gap 7 mmol/L N 2-11 Glucose 101 mg/dL High 70-100 Blood Urea Nitrogen 12 mg/dL N 6-24 Creatinine 1.09 mg/dL N 0.67-1.17 BUN/Creatinine Ratio 11.0 N 8-20 Calcium 9.3 mg/dL N 8.6-10.3 Egfr Non- 67.1 >60 Egfr 86.3 >60 83 Laboratory test 09/17/2017 [facility] C Reactive 14.45 mg/L High < 5.00 [address] [place] [address] [phone] Hemoglobin A1c (Glyco HGB) 5.4 % N 4.0-5.6 85 Laboratory test 09/16/2017 [facility] Epifix 3.5X3.5 SEE RESULTS 86, [address] Mesh [place]O <[place] [address] NOTE> [phone] Laboratory test 09/09/2017 [facility] Epifix 3.5X3.5 SEE RESULTS [address] Mesh [place]O <[place] [address] NOTE> [phone] Laboratory test 08/13/2017 [facility] Point of Care 119 mg/dL High 70-1 [address]ucose [address] [place] [address] [phone] Laboratory test 08/13/2017 [facility] Point of Care 129 mg/dL High 70-1 [address] Glucose 00 [place] [address] [phone] Laboratory test 08/12/2017 [facility] Point of Care 113 mg/dL High 70-1 [address] Glucose [address] [place], [place] [address] [phone] Laboratory test 08/12/2017 [facility] [facility] 178 mg/dL High 70-1 [address] Glucose 00 [place] [address] [phone] Laboratory test 08/11/2017 [facility] Point of Care 120 mg/dL High 70-1 [address] Glucose 00 [place] [address] [phone] Laboratory test 08/11/2017 [facility] Point of Care 153 mg/dL High 70-1 [address] Glucose 00 [place] [address] [phone] Laboratory test 08/09/2017 [facility] Point of Care 109 mg/dL High 70-1 [address] Glucose 00 [place] [address] [phone] Laboratory test 08/09/2017 [facility] Point of Care 154 mg/dL High 70-1 [address] Glucose 00 [place], [place] [address]600771 [phone] Laboratory test 08/06/2017 [facility] Point of Care 109 mg/dL High 70-1 [address] Glucose 00 [place] [address] [phone] Laboratory test 08/06/2017 [facility] Point of Care 134 mg/dL High 70-1 [address] Glucose 00 [place] [address] [phone] Laboratory test 08/04/2017 [facility] Point of Care 117 mg/dL High 70-1 [address] Glucose 00 [place] [address] [phone] Laboratory test 08/04/2017 [facility] Point of Care 138 mg/dL High 70-1 [address] Glucose 00 [place] [address] [phone] Laboratory test 08/03/2017 [facility] Point of Care 112 mg/dL High 70-1 [address] Glucose 00 [place] [address] [phone] Laboratory test 08/03/2017 [facility] Point of Care 142 mg/dL High 70-1 [address] Glucose 00 [place], [place] [address]1957 [phone] Laboratory test 08/02/2017 [facility] Point of Care 85 mg/dL N 70-1 [address] Glucose 00 [place], [place] [address]186708 [phone] Laboratory test 08/02/2017 [facility] Point of Care 134 mg/dL High 70-1 [address] Glucose 00 [place] [address] [phone] Laboratory test 07/30/2017 [facility] Point of Care 91 mg/dL N 70-1 [address] Glucose 00 [place], [place] 9302120 [phone] Laboratory test 07/30/2017 [facility] Point of Care 131 mg/dL High 70-1 [address] Glucose 00 [place], [place] [address]554 [phone] Laboratory test 07/29/2017 [facility] Point of Care 167 mg/dL High 70-1 [address] Glucose 00 [place] [address] [phone] Laboratory test 07/29/2017 [facility] Point of Care 133 mg/dL High 70-1 [address] Glucose 00 [place] [address] [phone] Laboratory test 07/28/2017 [facility] Point of Care 98 mg/dL N 70-1 [address] Glucose 00 [place] [address] [phone] Laboratory test 07/28/2017 [facility] Point of Care 158 mg/dL High 70-1 [address] Glucose 00 [place] [address] [phone] Laboratory test 07/27/2017 [facility] Point of Care 150 mg/dL High 70-1 [address] Glucose 00 [place] [address] [phone] Laboratory test 07/26/2017 [facility] Point of Care 123 mg/dL High 70-1 [address] Glucose 00 [place] [address] [phone] Laboratory test 07/26/2017 [facility] Point of Care 127 mg/dL High 70-1 [address] Glucose 00 [place] [address] [phone] Laboratory test 07/22/2017 [facility] Point of Care 125 mg/dL High 70-1 [address] Glucose 00 [place] [address] [phone] Laboratory test 07/22/2017 [facility] Point of Care 123 mg/dL High 70-1 [address] Glucose 00 [place] [address] [phone] Laboratory test 07/21/2017 [facility] Point of Care 130 mg/dL High 70-1 [address] Glucose 00 [place] [address] [phone] Laboratory test 07/21/2017 [facility] Point of Care 118 mg/dL High 70-1 [address] Glucose 00 [place] [address] [phone] Laboratory test 07/21/2017 [facility] Point of Care 119 mg/dL High 70-1 [address] Glucose 00 [place] [address] [phone] Laboratory test 07/20/2017 [facility] Point of Care 151 mg/dL High 70-1 [address] Glucose 00 [place] [address] [phone] Laboratory test 07/20/2017 [facility] Point of Care 114 mg/dL High 70-1 [address] Glucose 00 [place] [address] [phone] Laboratory test 07/19/2017 [facility] Point of Care 137 mg/dL High 70-1 [address] Glucose 00 [place] [address] [phone] Laboratory test 07/19/2017 [facility] Point of Care 100 mg/dL N 70-1 [address] Glucose 00 [place] [address] [phone] Laboratory test 07/15/2017 [facility] Point of Care 132 mg/dL High 70-1 [address] Glucose 00 [place] [address] [phone] Laboratory test 07/15/2017 [facility] Point of Care 108 mg/dL High 70-1 [address] Glucose 00 [place] [address] [phone] Laboratory test 07/15/2017 [facility] Point of Care 121 mg/dL High 70-1 [address] Glucose 00 [place], [place] 2459866 [phone] Laboratory test 07/14/2017 [facility] Point of Care 109 mg/dL High 70-1 [address] Glucose 00 [place], [place] [address]68604 [phone] Laboratory test 07/14/2017 [facility] Point of Care 120 mg/dL High 70-1 [address] Glucose 00 [place] [address] [phone] Laboratory test 07/13/2017 [facility] Point of Care 111 mg/dL High 70-1 [address] Glucose 00 [place] [address] [phone] Laboratory test 07/13/2017 [facility] Point of Care 145 mg/dL High 70-1 [address] Glucose 00 [place] [address] [phone] Laboratory test 07/12/2017 [facility] Point of Care 117 mg/dL High 70-1 [address] Glucose 00 [place] [address] [phone] Laboratory test 07/12/2017 [facility] Point of Care 108 mg/dL High 70-1 [address] Glucose 00 [place] [address] [phone] Laboratory test 07/12/2017 [facility] Point of Care 134 mg/dL High 70-1 [address] Glucose 00 [place] [address] [phone] Laboratory test 07/05/2017 [facility] Point of Care 99 mg/dL N 70-1 [address] Glucose 00 [place] [address] [phone] Laboratory test 07/05/2017 [facility] Point of Care 129 mg/dL High 70-1 [address] Glucose 00 [place] [address] [phone] Laboratory test 07/02/2017 [facility] Point of Care 172 mg/dL High 70-1 [address] Glucose 00 [place] [address] [phone] Laboratory test 07/02/2017 [facility] Point of Care 99 mg/dL N 70-1 [address] Glucose 00 [place] [address] [phone] Laboratory test 07/01/2017 [facility] Point of Care 151 mg/dL High 70-1 [address] Glucose 00 [place] [address] [phone] Laboratory test 07/01/2017 [facility] Point of Care 105 mg/dL High 70-1 [address] Glucose 00 [place] [address] [phone] Laboratory test 06/30/2017 [facility] Point of Care 153 mg/dL High 70-1 [address] Glucose 00 [place], [place] 0967718 [phone] Laboratory test 06/30/2017 [facility] Point of Care 123 mg/dL High 70-1 [address] Glucose 00 [place] [address] [phone] Laboratory test 06/29/2017 [facility] Point of Care 122 mg/dL High 70-1 [address] Glucose 00 [place] [address] [phone] Laboratory test 06/29/2017 [facility] Point of Care 100 mg/dL N 70-1 [address] Glucose 00 [place] [address] [phone] Laboratory test 06/29/2017 [facility] Point of Care 140 mg/dL High 70-1 [address] Glucose 00 [place] [address] [phone] Laboratory test 06/28/2017 [facility] Point of Care 160 mg/dL High 70-1 [address] Glucose 00 [place] [address] [phone] Laboratory test 06/28/2017 [facility] Point of Care 115 mg/dL High 70-1 [address] Glucose 00 [place] [address] [phone] Laboratory test 06/25/2017 [facility] Point of Care 161 mg/dL High 70-1 [address] Glucose 00 [place] [address] [phone] Laboratory test 06/25/2017 [facility] Point of Care 120 mg/dL High 70-1 [address] Glucose 00 [place] [address] [phone] Laboratory test 06/24/2017 [facility] Point of Care 105 mg/dL High 70-1 [address] Glucose 00 [place], [place] 1820192 [phone] Laboratory test 06/24/2017 [facility] Point of Care 145 mg/dL High 70-1 [address] Glucose 00 [place], [place] 5081314 [phone] Laboratory test 06/23/2017 [facility] Point of Care 117 mg/dL High 70-1 [address] Glucose 00 [place], [place] [address]18450 [phone] Laboratory test 06/23/2017 [facility] Point of Care 123 mg/dL High 70-1 [address] Glucose 00 [place] [address] [phone] Laboratory test 05/31/2017 [facility] Prealbumin 14 mg/dL Low 18-[address] 8 [place], [place] [address]24[address] [phone] Vitamin B12 477 pg/mL N 180-914 152 Vitamin D Total 25(Oh) 34.8 ng/mL N 20-50 Laboratory test 04/30/2017 [facility] Point of Care 104 mg/dL High 70-100 [address] Glucose [place], [place] [address]1033 [phone] Laboratory test 04/13/2017 [facility] Surgical SEE RESULT [address] [place] [address] [phone] Comp Metabolic 04/11/2017 [facility] Sodium 127 mmol/L Low 133 -[address] [place] [address] [phone] Potassium 3.7 mmol/L N 3.5-5.0 Chloride 91 [...] Egfr 102.3 >60 155 Laboratory test 04/11/2017 [facility] Lactic Acid 2.2 mmol/L High 0.5-2.0 [address] [place] [address] [phone] Inr/Protime 04/11/2017 [facility] Inr 1.36 High 0.77-1.[address] [place] [address] [phone] Laboratory test 04/11/2017 [facility] Partial 40.0 High 26.0- 36.[address] [place] [address] Time PTT [phone] Urinalysis 04/11/2017 [facility] Urine Color Yellow Profile [address] [place] [address] [phone] Urine Appearance Clear Urine Specific [place] 1.005 Low 1.010-1.030 Urine pH 6.0 N 5-9 Urine Urobilinogen Negative Negative Urine Ketones Trace Abnormal Negative Urine Protein Negative Negative Urine Leukocytes Negative Negative Urine Blood Negative Negative Urine Nitrite Negative Negative Urine Bilirubin Negative Negative Urine Glucose Negative Negative CBC Auto Diff 04/11/2017 [facility] White Blood 9.8 10^3/uL N 3.5-10.[address] [place] [address] [phone] Red Blood Count 4.10 10^6/uL N 4.0-5.4 [...] Blood Cells % 0 Laboratory test 04/11/2017 [facility] Blood Culture SEE RESULT [address] [place] [address] [phone] Laboratory test 01/25/2017 [facility] Surgical SEE RESULT [address] [place] [address] [phone] Laboratory test 07/16/2016 [facility] Hemoglobin A1c 5.5 5-7 finding Urine Microalbumin 07/15/2016 [facility] Urine 46.19 mg/dL N Random [address] [place] [address] [phone] Ur Microalbumin (mg/L) 61.9 mg/L N Urine Microalbumin/Creatinine 134.0 ug/mg High <31 Comp Metabolic Panel 07/15/2016 [facility] Sodium 138 mmol/L N 133-[address] [place] [address] [phone] Potassium 4.0 mmol/L N 3.5-5.0 Chloride 102 [...] 107.9 N >60 160 Lipid Profile 07/15/2016 [facility] Triglycerides 159 mg/dL N 161 (Trig/Chol/HDL) [address] [place] [address] [phone] Cholesterol 147 mg/dL N 162 HDL Cholesterol 42.9 mg/dL N 163 LDL Cholesterol 72 mg/dL N 164 Laboratory test 02/26/2016 [facility] Hemoglobin A1c 5.8 5-7 finding Laboratory test 12/27/2015 [facility] MRSA/S. aureus SEE RESULT 165, [address] [address] [phone] Wound 12/27/2015 [facility] Wound/Misc SEE RESULT 167 Culture/Sensi [address] [place] [address] [phone] Laboratory test 05/28/2015 [facility] Hemoglobin A1c 5.5 5-7 finding [...] ug/mg N <31 173 Laboratory test 09/25/2014 [facility] Hemoglobin A1c 5.4 5-7 finding CBC Auto Diff 09/24/2014 [facility] White Blood Count 8.2 N 4.8-10.[address] 10^3/[place] [address] [phone] Red Blood Count 4.81 10^6/uL N 4.0-5.4 [...] % 0.1 N Comp Metabolic Panel 09/24/2014 [facility] Sodium 138 mmol/L N 133-[address] [place] [address] [phone] Potassium 4.9 mmol/L N 3.5-5.0 Chloride 98 [...] 100.8 N >60 174 Urine Microalbumin 10/10/2013 [facility] Ur Microalbumin 5.0 mg/ dL N <[address] (mg/L) [place] [address] [phone] Urine Creatinine 156.07 mg/dL N Urine Microalbumin/Creatinine 3.2 N Less Than 31 Comp Metabolic Panel 10/05/2013 [facility] Sodium 140 mmol/L N 133-[address] [place] [address] [phone] Potassium 3.9 mmol/L N 3.7-5.6 Chloride 104 [...] 103.6 N >60 177 Lipid Profile 10/05/2013 [facility] Triglycerides 133 mg/dL N 178 (Trig/Chol/HDL) [address] [place] [address] [phone] Cholesterol 123 mg/dL N 179 HDL Cholesterol 29.4 mg/dL N 180 LDL Cholesterol 67 mg/dL N 181 Laboratory 10/05/2013 [facility] Hepatitis C Nonreactive N Nonreactive [address] [place] [address] [phone] Laboratory 10/05/2013 [facility] Hemoglobin 5.2 % N Less than 6.0 [address] [place] [address] [phone] CBC Auto Diff 10/05/2013 [facility] White Blood 7.2 10^3/uL N 4.8-10.8 [address] [place] [address] [phone] Red Blood Count 4.63 10^6/uL N 4.0-5.4 [...] Cells % 0.1 N Laboratory test 02/06/2013 [facility] Hemoglobin A1c 5.0 5-7 finding Wound Culture/Sensi 06/28/2012 [facility] Wound/Misc (SEE NOTE) [address] [place] [place] [address] [phone] Urine Microalbumin 03/31/2012 [facility] Ur Microalbumin 4.0 mg/ L [address] (Mg/L) [place] [address] [phone] Urine Creatinine 90.6 mg/dL Urine Microalbumin/Creatinine 4.4 UG/MG Less Than 31 Laboratory test 03/31/2012 [facility] Hemoglobin A1c 5.6 5-7 finding Laboratory test 03/30/2012 [facility] Creatine Kinase 114 U/L 0-[address] [place] [address] [phone] Liver Function Panel 03/30/2012 [facility] Total Protein 6.6 g/ dL 6.2-8.[address] [place] [address] [phone] Albumin 3.7 g/dL 3.2-5.2 Globulin 2.9 g/dL 2-4 Albumin/Globulin Ratio 1.3 1-3 Total Bilirubin 0.9 mg/dL 0.4-1.5 Direct Bilirubin 0.1 mg/dL 0.1-0.5 Indirect Bilirubin 0.8 mg/dL 0.3-1.0 Alkaline Phosphatase 142 U/L High 30-110 Alt 18 U/L 14-54 Ast 22 U/L 12-42 Laboratory test 12/10/2011 [facility] House Hemoglobin A1c 7.1 High 5-7 finding Lipid Profile 12/09/2011 [facility] Triglyceride 161 mg/dL 40 -200 (Trig/Chol/HDL) [address] [place] [address] [phone] Cholesterol 169 mg/dL Less Than 200 186 High Density Lipoprotein 34 mg/dL Low 40-60 187 Cholesterol/HDL Ratio 4.97 AVERAGE 1-4.97 Low Density Lipoprotein 103 mg/dL High Less Than 100 188 Basic Metabolic Panel 12/09/2011 [facility] Sodium 139 mmol/L 135-145 [address] [place] [address] [phone] Potassium 4.0 mmol/L 3.5-5.0 Chloride 104 mmol/L 101-111 Co2 (Carbon Dioxide) 31.0 mmol/L 22-32 Anion Gap 4.0 mmol/L 2-11 189 Glucose 134 mg/dL High 70-100 BUN 11 mg/dL 6-24 Creatinine 1.0 mg/dL 0.50-1.40 One Over Creatinine 1.00 BUN/Creatinine Ratio 11.0 8-20 Calcium 8.5 mg/dL 8.1-9.9 eGFR Non- 75.5 > 60 eGFR 97.1 > 60 190 Laboratory test 12/09/2011 [facility] PSA 1.01 NG/ML 0-[address] [place] [address] [phone] Culture And 03/07/2011 [facility] M [address] [place] [address] ---- <[place] [address] NOTE> [phone] Culture And 03/07/2011 [facility] M [address] [place] [address] ---- <[place] [address] NOTE> [phone] Culture And 03/07/2011 [facility] M 194 Sensitivity ---- <[place] [address] NOTE> [phone] DR [facility] 06/03/2010 [facility] TSH 3.12 MIU/ML 0.34- 5.60 Panel [address] [place] [address] [phone] CMP Panel 06/03/2010 [facility] Sodium 139 mmol/L 135-145 [address] [place] [address] [phone] Potassium 3.8 mmol/L 3.5-5.0 Chloride 103 mmol/L [...] 110.0 > 60 197 Lipid Panel 06/03/2010 [facility] Triglyceride 125 mg/dL 40- 200 [place] [address] [phone] Cholesterol 233 mg/dL High Less Than 200 198 High Density Lipoprotein 37 mg/dL Low 40-60 199 Cholesterol/HDL Ratio 6.30 AVERAGE High 1-4.97 Low Density Lipoprotein 171 mg/dL High Less Than 100 200 CBC W/Electronic 06/03/2010 [facility] White Blood 7.6 CUMM 4.8-10.[address] [place] [address] [phone] Red Cell Count 4.72 CUMM 4.6-6.2 Hemoglobin 15.5 g/dL 14.0-18.0 Hematocrit 46 % 42-52 Mean Corpuscular Volume 97 um3 High 80-94 Mean Corpuscular Hemoglob 33 pg High 27-31 Mean Corpuscular HGB Cone 34 g/dL 32-36 Redcell Distribution WDTH 14 % 10.5-15 Platelet Count 181 CUMM 150-450 Mean Platelet Volume 9.9 um3 7.4-10.4 201 Manual Differential 06/03/2010 [facility] Polysegmented 55 % 38-[address] [facility] [address] [phone] Lymphocyte 21 % Low 25-47 Monocyte 16 % High 0-13 Eosinophil 6 % 0-6 Basophil 1 % 0-2 Atypical Lymph 1 % 0-6 Absolute Neutrophil Count 4.1 Anisocytosis SLIGHT Macrocytosis SLIGHT Platelet Evaluation LARGE Laboratory test 06/03/2010 [facility] PSA Screening 0.43 NG/ML 0-4 202 finding [address] [place] [address] [phone] Surgical 11/23/2008 [facility] Surgical 203 Pathology 101 [facility] Pathology ------ [place] [address] <SEE NOTE> [phone] Comp Metabolic 10/17/2008 [facility] Sodium 138 mmol/L 135- 145 Panel [address] [place] [address] [phone] Potassium 4.2 mmol/L 3.5-5.0 Chloride 102 mmol/L [...] 126.8 > 60 208 Lipid Profile 10/17/2008 [facility] Triglyceride 130 mg/dL 40 -200 (Trig/Chol/HDL) [address] [place] [address] [phone] Cholesterol 234 mg/dL High Less Than 200 209 High Density Lipoprotein 41 mg/dL 40-60 210 Cholesterol/HDL Ratio 5.71 AVERAGE High 1-4.97 Low Density Lipoprotein 167 mg/dL High Less Than 100 211 Liver Function 10/17/2008 [facility] Bilirubin Direct 0.1 mg/dL 0.1-0.5 Panel [address] [place] [address] [phone] Indirect Bilirubin 0.6 mg/dL 0.1-0.75 Laboratory test 10/17/2008 [facility] Hemoglobin A1c 5.0 % < 6.0 [address] [place] [address] [phone] Comp Metabolic 08/07/2008 [facility] Sodium 144 135-[address] mmol/[place] [address] [phone] Potassium 4.5 mmol/L 3.5-5.0 Chloride 108 mmol/L [...] High 12-42 Iron & Iron Binding 08/07/2008 [facility] Iron Total 77 g/dL 45-[address] [place] [address] [phone] Unsaturated Iron Binding 146 g/dL Total Iron Binding Capacity 223 g/dL Low 250-450 % Iron Saturation 35 % 15-55 Laboratory test 08/07/2008 [facility] Vitamin B12 1018 pg/mL High 180-[address] [place] [address] [phone] Folic Acid 14.4 NG/ML 2-16 Alcohol < 10.0 mg/dL None Detected 216 Hepatitis B Surface Ag NEGATIVE Negative Hepatitis B Core Igm NEGATIVE Negative Hepatitis A AB Igm NEGATIVE Negative Hepatitis C Antibody NEGATIVE Negative CBC With 07/25/2008 [facility] White Blood 7.2 CUMM 4.8-10.8 Electronic Diff [address] [place] [address] [phone] Red Cell Count 4.70 CUMM 4.6-6.2 Hemoglobin [...] Abs Basophils 0.1 0-0.2 217 P33S 07/25/2008 [facility] Sodium 134 mmol/L Low 135-[address] [place] [address] [phone] Potassium 4.4 mmol/L 3.5-5.0 Chloride 96 mmol/L [...] High 12-42 222 Laboratory test finding 07/25/2008 [facility] Lipase 46 U/L 22-51 [address] [place] [address] [phone] Troponin-I (TnI) 0.04 NG/ML 0-0.06 223 Laboratory test 03/12/2008 [facility] PSA,Diagnostic 0.38 NG/ML 0-4 224 finding [address] [place] [address] [phone] Comp Metabolic 12/29/2007 [facility] Sodium 140 mmol/L 135- 145 225 Panel [address] [place] [address] [phone] Potassium 5.2 mmol/L High 3.5-5.0 Chloride 105 [...] 35 U/L 12-42 Basic Metabolic Panel 12/06/2007 [facility] Sodium 138 mmol/L 135-145 [address] [place] [address] [phone] Potassium 4.3 mmol/L 3.5-5.0 Chloride 101 mmol/L 101-111 Co2 (Carbon Dioxide) 33.0 mmol/L High 22-32 Anion Gap 4.0 mmol/L 2-11 229 Glucose 87 mg/dL 70-100 230 BUN 22 mg/dL 6-24 Creatinine 1.0 mg/dL 0.5-1.4 One Over Creatinine 1.00 BUN/Creatinine Ratio 22.0 High 8-20 Calcium 9.1 mg/dL 8.1-9.9 231 Liver Function 12/06/2007 [facility] Total Protein 6.3 GM/DL 6.2-8.1 Panel [address] [place] [address] [phone] Albumin 3.5 GM/DL Low 3.6-5.4 Globulin 2.8 GM/DL 2-4 Albumin/Globulin Ratio 1.3 1-3 Bilirubin Total 0.8 mg/dL 0.4-1.5 Bilirubin Direct 0.2 mg/dL 0.1-0.5 Indirect Bilirubin 0.6 mg/dL 0.1-0.75 Alkaline Phosphatase 104 U/L 39-117 Alt (SGPT) 80 U/L High 17-63 Ast (Sgot) 72 U/L High 12-42 Laboratory test finding 12/06/2007 [facility] GGTP 122 U/L High 7-50 [address] [place] [address] [phone] Vitamin B12 341 pg/mL 180-914 Folic Acid 11.1 NG/ML 2-16 Alcohol < 10.0 mg/dL None Detected 232 Thyroxine Free 0.68 NG/ML 0.61-1.24 233 TSH 2.54 MIU/ML 0.34-5.60 Hemoglobin A1c 5.3 % <6.0 234 Protime 12/01/2007 [facility] Protime 11.7 10.9-13.3 [address] [place] [address] [phone] Inr 0.93 235 Laboratory test 12/01/2007 [facility] PTT (Aptt) 22.6 20.1- 28.2 [address] [place] [address] [phone] CBC With 12/01/2007 [facility] White Blood 9.9 CUMM 4.8-10.8 Electronic Diff [address] [place] [address] [phone] Red Cell Count 4.40 CUMM Low 4.6-6.2 [...] Abs Basophils 0 0-0.2 237 P33S 12/01/2007 [facility] Sodium 140 mmol/L 135-[address] [place] [address] [phone] Potassium 3.9 mmol/L 3.5-5.0 Chloride 99 mmol/L [...] 83 U/L High 12-42 Laboratory test 12/01/2007 [facility] Troponin-I 0.02 NG/ML 0 -0.[address] (TnI) [place] [address] [phone] CBC With 10/19/2007 [facility] White Blood 6.8 CUMM 4.8-10.8 Electronic Diff [address] [place] [address] [phone] Red Cell Count 3.72 CUMM Low 4.6-6.2 [...] 0-0.6 Abs Basophils 0.2 0-0.2 DS3 10/19/2007 [facility] Amphetamines Urine NONE DETECTED None Detect [address] [place] [address] [phone] Barbituates Urine Screen NONE DETECTED None Detect Benzodiazepine Ur Screen NONE DETECTED None Detect Cannabinoid Urine Screen NONE DETECTED None Detect Cocaine Metabolites Urine NONE DETECTED None Detect Opiates Urine Screen POSITIVE Abnormal None Detect PCP Urine Screen NONE DETECTED None Detect 242 P33S 10/19/2007 [facility] Sodium 141 mmol/L 135-[address] [place] [address] [phone] Potassium 4.8 mmol/L 3.5-5.0 Chloride 108 mmol/L [...] 53 U/L High 12-42 Alcohol Stat 10/19/2007 [facility] Alcohol 374.5 High None Detected [address] [facility] mg/[place] [address] [phone] Basic Metabolic 10/07/2007 [facility] Sodium 141 mmol/L 135- 145 [address] [place] [address] [phone] Potassium 4.2 mmol/L 3.5-5.0 Chloride 105 mmol/L 101-111 Co2 (Carbon Dioxide) 31.0 mmol/L 22-32 Anion Gap 5.0 mmol/L 2-11 247 Glucose 91 mg/dL 70-105 BUN 25 mg/dL High 6-24 Creatinine 0.9 mg/dL 0.5-1.4 One Over Creatinine 1.11 BUN/Creatinine Ratio 27.8 High 8-20 Calcium 8.9 mg/dL 8.1-9.9 248 CBC With Manual 10/07/2007 [facility] White Blood 5.8 CUMM 4.8-10.[address] [place] [address] [phone] Red Cell Count 4.10 CUMM Low 4.6-6.2 [...] Count 4.1 Macrocytosis SLIGHT CBC With 09/27/2007 [facility] White Blood 9.0 CUMM 4.8-10.8 Electronic Diff [address] [place] [address] [phone] Red Cell Count 4.34 CUMM Low 4.6-6.2 [...] 0-0.6 Abs Basophils 0.1 0-0.2 P33S 09/27/2007 [facility] Sodium 139 mmol/L 135-[address] [place] [address] [phone] Potassium 3.4 mmol/L Low 3.5-5.0 Chloride 102 [...] U/L High 12-42 CBC W/ Electronic 01/04/2007 [facility] White Blood 4.7 CUMM Low 4.8-10.[address] [place] [address] [phone] Abs Basophils 0 0-0.2 Abs Eosinophils 0.2 [...] 14 % 10.5-15 Comp Metabolic Panel 01/04/2007 [facility] One Over Creatinine 1.[address] [place] [address] [phone] Anion Gap 6.0 mmol/L 2-11 251 Albumin/Globulin [...] Creatinine 0.9 mg/dL 0.5-1.4 Lipid Profile 01/04/2007 [facility] Cholesterol/HDL 3.10 1- 4.97 (Trig/Chol/HDL) [address] [place] [address] [phone] Cholesterol 183 mg/dL Less Than 200 252 Triglyceride 153 mg/dL 40-200 High Density Lipoprotein 59 mg/dL 40-60 Low Density Lipoprotein 93 mg/dL Less Than 100 253 Laboratory test 01/04/2007 [facility] TSH 2.33 MIU/ML 0.34- 5.[address] [place] [address] [phone] PSA Screening 1.04 NG/ML 0-4 254 1 [...] [address]: Timmy Lees MD Acct: [id number] Unit: [id number] AGE: 67 Location: ICU [id number] Re12/21/17 SEX: M Status: ADM IN SPEC: [id number] JOHNNY: 12/21/[address] [facility] [address]: Ken Da Silva MD REQ: [id number] RECD: 12/21/17 STATUS: HILDA ALEXANDER DR: Ramez Akins III, MD _ SOURCE: URINE SPDESC: ORDERED: Urine Culture Procedure Result Reported Site Urine Culture Final 12/23/17- 0854 ML No growth of clinically significant organisms * ML - Main Lab . END OF REPORT DEPARTMENT OF PATHOLOGY, [address] [place] [address] Albin Mario M.D. Director [facility] # [id number] 3 [facility] Severe Sepsis and Septic Shock Management [...] ALBIN LUEVANO Kandis : [address]: Timmy Lees MD Acct: [id number] Unit: [id number] AGE: 67 Location: [place] [address]-02 Re12/21/17 SEX: M Status: ADM IN SPEC: [id number] JOHNNY: 12/21/17-[address]: Ken Da Silva MD REQ: [id number] RECD: 12/21/17 STATUS: COMP [facility] DR: Ramez Akins III, MD _ SOURCE: [facility] ORDERED: Blood Cult Procedure Result Reported Site Aerobic Culture Bottle Final 12/26/17- 2043 ML No Growth Day 5 Anaerobic Culture Bottle Final 12/26/17- 2043 ML No Growth Day 5 * ML - Main Lab . END OF REPORT DEPARTMENT OF PATHOLOGY, [address] [place] [address] Albin Mario M.D. Director [facility] # [id number] 7 F/U 8 SEE RESULTS BELOW [id number] EPIFIX 3.5 MESH TRANSFUSED 12/10/17 0927 9 Pretzel Packer: [id number] 10 Pretzel Packer: [id number] 11 Pretzel Packer: [id number] 12 Pretzel Packer: [id number] 13 Pretzel Packer: [id number] 14 Pretzel Packer: [id number] 15 Pretzel Packer: [id number] 16 Pretzel Packer: [id number] 17 Pretzel Packer: [id number] 18 Pretzel Packer: [id number] 19 Pretzel Packer: [id number] 20 Pretzel Packer: [id number] 21 Pretzel Packer: [id number] 22 Pretzel Packer: [id number] 23 Pretzel Packer: [id number] 24 Pretzel Packer: [id number] 25 Pretzel Packer: [id number] 26 Pretzel Packer: [id number] 27 Pretzel Packer: [id number] 28 Pretzel Packer: [id number] 29 Pretzel Packer: [id number] 30 Pretzel Packer: [id number] 31 Pretzel Packer: [id number] 32 Because ethnic data is not always [...] 5 Kidney failure <15 (or dialysis) 33 Pretzel Packer: [id number] 34 Pretzel Packer: [id number] 35 Pretzel Packer: [id number] 36 Pretzel Packer: [id number] 37 Pretzel Packer: [id number] 38 Pretzel Packer: [id number] 39 Pretzel Packer: [id number] 40 Pretzel Packer: [id number] 41 Pretzel Packer: [id number] 42 Pretzel Packer: [id number] 43 Because ethnic data is not always [...] 5 Kidney failure <15 (or dialysis) 44 Pretzel Packer: [id number] 45 Pretzel Packer: [id number] 46 Pretzel Packer: [id number] 47 Pretzel Packer: [id number] 48 Pretzel Packer: [id number] 49 Pretzel Packer: [id number] 50 Pretzel Packer: [id number] 51 Pretzel Packer: [id number] 52 Pretzel Packer: [id number] 53 Because ethnic data is not always [...] 5 Kidney failure <15 (or dialysis) 54 Pretzel Packer: [id number] 55 Pretzel Packer: [id number] 56 Pretzel Packer: [id number] 57 Pretzel Packer: [id number] 58 Pretzel Packer: [id number] 59 Pretzel Packer: [id number] 60 Pretzel Packer: [id number] 61 Pretzel Packer: [id number] 62 Pretzel Packer: [id number] 63 Pretzel Packer: [id number] 64 Pretzel Packer: [id number] 65 Because ethnic data is not always [...] 5 Kidney failure <15 (or dialysis) 66 Pretzel Packer: [id number] 67 Pretzel Packer: [id number] 68 Pretzel Packer: [id number] 69 Pretzel Packer: [id number] 70 Pretzel Packer: [id number] 71 Pretzel Packer: [id number] 72 Pretzel Packer: [id number] 73 Pretzel Packer: [id number] 74 Pretzel Packer: [id number] 75 Pretzel Packer: [id number] 76 Because ethnic data is not always [...] 5 Kidney failure <15 (or dialysis) 77 Pretzel Packer: [id number] 78 Pretzel Packer: [id number] 79 Because ethnic data is not always [...] 5 Kidney failure <15 (or dialysis) 81 [id number] 82 SEE RESULT BELOW Name: ALBIN LUEVANO : [address]: Bryn Barnhart MD Acct: [id number] Unit: [id number] AGE: 67 Location: [facility] Re09/28/17 SEX: M Status: REG REF SPEC: [id number] JOHNNY: 09/28/17-[address] [facility] [address]: Bryn Barnhart MD REQ: [id number] RECD: 09/28/17 STATUS: COMP _ SOURCE: TOE SPDESC: ORDERED: Culture Stain COMMENTS: [id number] QUERIES: Specimen Description 4TH RIGHT TOE Procedure Result Reported Site Wound/Misc Gram Stain Final 09/29/17- 0746 ML 3+ Neutrophils 1+ Nucleated Cells 1+ Gram Positive Cocci Wound/Misc Culture Final 09/30/17- 1212 ML Organism 1 CORYNEBACTERIUM STRIATUM Quantity 2+ * ML - Main Lab . END OF REPORT DEPARTMENT OF PATHOLOGY, [address] [place] [address] Albin Mario M.D. Director [facility] # [id number] 83 Because ethnic data is not always [...] in selective patients <6.0%. Please refer to [place] [employer] diabetic care guidelines for further information. 86 f/u 87 SEE RESULTS BELOW [id number] EPIFIX 3.5 MESH TRANSFUSED 09/17/17 1039 88 SEE RESULTS BELOW [id number] EPIFIX 3.5 MESH TRANSFUSED 09/10/17 1157 89 Pretzel Packer: [id number] 90 Pretzel Packer: [id number] 91 Pretzel Packer: [id number] 92 Pretzel Packer: [id number] 93 Pretzel Packer: [id number] 94 Pretzel Packer: [id number] 95 Pretzel Packer: [id number] 96 Pretzel Packer: [id number] 97 Pretzel Packer: [id number] 98 Pretzel Packer: [id number] 99 Pretzel Packer: [id number] 100 Pretzel Packer: [id number] 101 Pretzel Packer: [id number] 102 Pretzel Packer: [id number] 103 Pretzel Packer: [id number] 104 Pretzel Packer: [id number] 105 Pretzel Packer: [id number] 106 Pretzel Packer: [id number] 107 Pretzel Packer: [id number] 108 Pretzel Packer: [id number] 109 Pretzel Packer: [id number] 110 Pretzel Packer: [id number] 111 Pretzel Packer: [id number] 112 Pretzel Packer: [id number] 113 Pretzel Packer: [id number] 114 Pretzel Packer: [id number] 115 Pretzel Packer: [id number] 116 Pretzel Packer: [id number] 117 HBO Protocol Pretzel Packer: [id number] 118 Pretzel Packer: [id number] 119 Pretzel Packer: [id number] 120 Pretzel Packer: [id number] 121 Pretzel Packer: [id number] 122 Pretzel Packer: [id number] 123 Pretzel Packer: [id number] 124 Pretzel Packer: [id number] 125 Pretzel Packer: [id number] 126 Pretzel Packer: [id number] 127 Pretzel Packer: [id number] 128 Pretzel Packer: [id number] 129 Pretzel Packer: [id number] 130 Pretzel Packer: [id number] 131 Pretzel Packer: [id number] 132 Pretzel Packer: [id number] 133 Pretzel Packer: [id number] 134 Pretzel Packer: [id number] 135 Pretzel Packer: [id number] 136 Pretzel Packer: [id number] 137 Pretzel Packer: [id number] 138 Pretzel Packer: [id number] 139 Pretzel Packer: [id number] 140 Pretzel Packer: [id number] 141 Pretzel Packer: [id number] 142 Pretzel Packer: [id number] 143 Pretzel Packer: [id number] 144 Pretzel Packer: [id number] 145 Pretzel Packer: [id number] 146 Pretzel Packer: [id number] 147 Pretzel Packer: [id number] 148 Pretzel Packer: [id number] 149 Pretzel Packer: [id number] 150 Pretzel Packer: [id number] 151 Pretzel Packer: [id number] 152 Normal Range 180 to 914 Indeterminate Range 145 to 180 Deficient Range <145 153 Pretzel Packer: [id number] 154 SEE RESULT BELOW Name: ALBIN LUEVANO : [address]: Janeen Maya MD Acct: [id number] Unit: [id number] AGE: 67 Location: [place] [address] Re04/11/17 Dis: 04/14/17 SEX: M Status: DIS IN SPEC: [id number] JOHNNY: 04/13/17-[address] [facility] [address]: Steffen Rojas MD REQ: [id number] RECD: 04/13/17-1313 STATUS: JASSI ALEXANDER DR: Riky Nelson MD _ ORDERED: [facility], LEVEL 4 FINAL DIAGNOSIS Left fifth toe, [...] is a 2.2 x 1.5 cm dusky reyes-altmairano shaggy ulceration on the lateral digit 0.9 cm from the nearest margin. The surrounding tissue is crusted. The remaining skin is scaly to wrinkled reyes-white. The cut surface is necrotic dusky reyes- red to altamirano. Received separately in the same container is a 4.0 by up to 2.6 x 1.7 cm reyes- red rubbery cauterized soft tissue and bone fragment. Digital Ad Trafficker sections are submitted in cassettes A and B as follows: A-bone following decalcification and B-ulcer and soft tissue to include inked margin. MICROSCOPIC DESCRIPTION Signed (signature on file) Linh Ruvalcaba MD 12/28 1045 END OF REPORT * ML=Testing performed at Main Lab DEPARTMENT OF PATHOLOGY, [address] [place] [address] Albin Mario M.D. Director [facility] # [id number] 155 Because ethnic data is not always [...] dialysis) 156 Critical Result LACT:2.2 Called to [id number] at: 22:42:51 by:[id number] Read back by:ABIEL BUCKLEY Severe Sepsis and Septic Shock Management Bundle Measure requires all lactic acids initially measuring >2.0 mmol/L be repeated. 157 Please note the change in INR reference range effective 17. 158 SEE RESULT BELOW Name: ALBIN LUEVANO : [address]: Janeen Maya MD Acct: [id number] Unit: [id number] AGE: 67 Location: [place] [address] Re04/11/17 Dis: 04/14/17 SEX: M Status: DIS IN SPEC: [id number] JOHNNY: 04/11/[address] [facility] [address]: David Moulton MD REQ: [id number] RECD: 04/11/17 STATUS: HILDA ALEXANDER DR: Ramez Akins III, MD _ SOURCE: BLOOD,VENO SPDESC: ORDERED: Blood Cult COMMENTS: Patient is On Antibiotics? NO Procedure Result Reported Site Aerobic Culture Bottle Final 04/16/17- 2220 ML No Growth Day 5 Anaerobic Culture Bottle Final 04/16/17- 0 ML No Growth Day 5 * ML - MAIN LAB (PSC1) . END OF REPORT * ML=Testing performed at Main Lab DEPARTMENT OF PATHOLOGY, [address] [place] [address] Albin Mario M.D. Director [facility] # [id number] 159 SEE RESULT BELOW Name: ALBIN LUEVANO : [address]: Blu Jules MD Acct: [id number] Unit: [id number] AGE: 67 Location: ENDO Re01/25/17 SEX: M Status: DEP REF SPEC: [id number] JOHNNY: 01/25/[address] [facility] [address]: Blu Jules MD REQ: [id number] RECD: 01/25/17 STATUS: JASSI ALEXANDER DR: Ramez [...] performed at Main Lab DEPARTMENT OF PATHOLOGY, [address] [place] [address] Albin Mario M.D. Director [facility] # [id number] RUN DATE: 01/26/17 [facility] LAB LIVE PAGE 2 Patient: ALBIN LUEVANO [id number] (Continued) GROSS DESCRIPTION (Continued) GROSS DESCRIPTION 1. [...] performed at Main Lab DEPARTMENT OF PATHOLOGY, [address] [place] [address] Albin Mario M.D. Director [facility] # [id number] 160 Because ethnic data is not always [...] 160-189 mg/dL Very High: >189 mg/dL 165 [id number] 166 SEE RESULT BELOW Name: ALBIN LUEVANO : [address]: Jennifer Okeefe Acct: [id number] Unit: [id number] AGE: 65 Location: [facility] Re12/27/15 SEX: M Status: DEP ER SPEC: [id number] JOHNNY: 12/27/[address] [facility] [address]: Anthony HONG REQ: [id number] RECD: 12/28/15-125 STATUS: HILDA ALEXANDER DR: Jennifer Brown III, MD _ SOURCE: [employer]I [place] SPDESC: ORDERED: MRSA/SA SSTI, Culture Stain COMMENTS: [id number] Procedure Result Reported Site MRSA/S. aureus SSTI PCR Final 12/28/15- 1516 ML Organism 1 MRSA NEGATIVE Organism 2 S.AUREUS NEGATIVE Wound/Misc Gram Stain Final 12/28/15- 1342 ML 3+ Epithelial Cells 2+ Neutrophils 3+ Gram Positive Cocci 1+ Gram Positive Bacilli Wound/Misc Culture Final 12/30/15- 1202 ML Organism 1 NORMAL ARCENIO * ML - MAIN LAB ([facility]) . END OF REPORT * ML=Testing performed at Main Lab DEPARTMENT OF PATHOLOGY, [address] [place] [address] Albin Mario M.D. Director [facility] # [id number] 167 SEE RESULT BELOW Name: ALBIN LUEVANO : [address]: Jennifer Okeefe Acct: [id number] Unit: [id number] AGE: 65 Location: [facility] Re12/27/15 SEX: M Status: DEP ER SPEC: [id number] JOHNNY: 12/27/[address] [facility] [address]: Anthony HONG REQ: [id number] RECD: 12/28/15 STATUS: RES [facility] DR: Jennifer Brown III, MD _ SOURCE: HERI [place]OPLES [facility]: ORDERED: MRSA/SA SSTI, Culture Stain COMMENTS: [id number] Procedure Result Reported Site MRSA/S. aureus SSTI PCR PENDING Wound/Misc Gram Stain Final 12/28/15- 1342 ML 3+ Epithelial Cells 2+ Neutrophils 3+ Gram Positive Cocci 1+ Gram Positive Bacilli Wound/Misc Culture PENDING * ML - MAIN LAB ([facility]1) . END OF REPORT * ML=Testing performed at Main Lab DEPARTMENT OF PATHOLOGY, [address] [place] [address] Albin Mario M.D. Director [facility] # [id number] 168 >100 to <200 pg/mL: likely compensated [...] and in selective patients <6.0%.Please refer to [place] [employer] Diabetic care guidelines for further information. 184 RUN DATE: 07/01/12 [facility] LAB LIVE PAGE 1 RUN TIME: [address] [place] [address] Specimen Inquiry Name: ALBIN LUEVANO : [address]: Amanda Davenport MD Acct: [id number] Unit: [id number] AGE: 62 Location: [facility] Re06/28/12 SEX: M Status: DEP ER SPEC: [id number] JOHNNY: 06/28/12-[address] [facility] [address]: Amanda Davenport MD REQ: [id number] RECD: 06/29/12-1037 STATUS: COMP [facility] DR: Ramez Akins III, MD _ SOURCE: [...] performed at Main Lab DEPARTMENT OF PATHOLOGY, [facility][note 3] [employer] [place], [place] [address] Albin Mario M.D. Director [facility] Permit #[id number] RUN DATE: 07/01/12 [facility] LAB LIVE PAGE 2 RUN TIME: 942 [place], [place] [address] Specimen Inquiry Patient: ALBIN LUEVANO [id number] (Continued) Specimen: [id number] Collected: 06/28/12-175 Received: 06/29/12-1038 (Continued) Procedure Result Verified Site Wound/Misc Culture Final (continued) * These antibiotics are not available in the [facility] Formulary Contact the Microbiology Department for any additional antibiotic reporting. END OF REPORT * ML=Testing performed at Main Lab DEPARTMENT OF PATHOLOGY, [address] [place] [address] Albin Mario M.D. Director [facility] Permit #[id number] 185 Microalbuminuria in a random sample is [...] SERUM LEVELS OF PSA MEASURED USING THE Anexon ACCESS HYBRITECH IMMUNOASSAY SHOULD NOT BE INTERPRETED ABSOLUTE EVIDENCE OF THE PRESENCE OR ABSENCE OF DISEASE. THE PSA VALUE SHOULD BE USED IN CONJUNCTION WITH OTHER PERTINENT CLINICAL DIAGNOSTIC PROCEDURES. The values obtained with different assay methods or kits cannot be used interchangeably. 192 RUN DATE: 03/09/11 [facility] NMI LIVE PAGE 1 RUN TIME: 1101 Specimen Inquiry RUN USER: INTERFACE Name: ALLISONALBIN Status: DEP CLI Re03/07/11 Age/Sex: 61/M Unit#: [id number] Location: [facility] : [birth year] SPEC #: [id number] JOHNNY: 03/07/11 STATUS: RES REQ #: [id number] RECD: 03/08/11-[address]: Nayely Ortiz MD SOURCE: WOUND ENTR: 03/08/11-[address]: Ramez Akins III, MD [facility]: TOE,RIGHT ORDERED: CULT SENS/GS ACT WKST: B 03/09/11 #1 Procedure Result Verified Site > CULTURE SENSITIVITY Preliminary 03/09/11- 1101 ML Organism 1 STAPHYLOCOCCUS AUREUS QUANTITY MANY Organism 2 PSEUDOMONAS SPECIES QUANTITY MODERATE > GRAM STAIN SMEAR Final 03/08/11 1521 ML POLYS MODERATE SMEAR: MOD GRAM POSITIVE COCCI MOD GRAM NEGATIVE BACILLI ML - [facility] Permit #[id number] [facility][note 3] [employer] [place] [address] DEPARTMENT OF PATHOLOGY, [facility][note 3] [employer] [place] [address] [place] [facility] Permit #[id number] Rex Xiong M.D. Bookmaker'S Clerk 193 RUN DATE: 03/10/11 [facility] NMI LIVE PAGE 1 RUN TIME: 924 Specimen Inquiry RUN USER: INTERFACE Name: ALBIN LUEVANO Status: DEP CLI Re03/07/11 Age/Sex: 61/M Unit#: [id number] Location: : 48 SPEC #: [id number] JOHNNY: 03/07/11 STATUS: RES REQ #: [id number] RECD: 03/08/11-[address]: Angel BADILLO,Nayely Chávez SOURCE: WOUND ENTR: 03/08/11-[address]: Mable PALMA MD, Ramez [facility],RIGHT ORDERED: CULT SENS/GS ACT WKST: B [...] 4 IMIPENEM S <=1 DEPARTMENT OF PATHOLOGY, [address] [place] [address] [facility] Permit #[id number] Albin Mario M.D. Director Mayra Pan M.D. Bookmaker'S Clerk RUN DATE: 03/10/11 [facility] NMI LIVE PAGE 2 RUN TIME: 924 Specimen Inquiry RUN USER: INTERFACE Name: ALBIN LUEVANO Status: DEP CLI Re03/07/11 Age/Sex: 61/M Unit#: [id number] Location: [facility]. : [birth year] -- -- CONTINU ED Procedure Result Verified Site CULTURE SENSITIVITY Preliminary (continued) - +These results are deduced according to CLSI guidelines as they are related to tested antimicrobials with almost identical spectrum of activity. *These antibiotics are not available in the [facility] Formulary. Contact the Microbiology Department for any additional antibiotic reporting. *These antibiotics are not available in the [facility] Formulary. Contact the Microbiology Department for any additional antibiotic reporting. > GRAM STAIN SMEAR Final 03/08/11- 1521 ML POLYS MODERATE SMEAR: MOD GRAM POSITIVE COCCI MOD GRAM NEGATIVE BACILLI - [facility] Permit #[id number] [address] [place] [address] DEPARTMENT OF PATHOLOGY, [address] [place] [address] [facility] Permit #[id number] Rex Xiong M.D. Bookmaker'S Clerk 194 RUN DATE: 03/10/11 [facility] NMI LIVE PAGE 1 RUN TIME: 4135 Specimen Inquiry RUN USER: INTERFACE Name: ALBIN LUEVANO Status: DEP CLI Re03/07/11 Age/Sex: 61/M Unit#: [id number] Location: [facility] : [birth year] SPEC #: [id number] JOHNNY: 03/07/11 STATUS: RES REQ #: [id number] RECD: 03/08/11-[address] [facility] [address]: Angel BADILLO,Nayely Chávez SOURCE: WOUND ENTR: 03/08/11-[address] [facility] [address]: Mable PALMA MD, [facility]: TOE,RIGHT ORDERED: CULT SENS/GS Procedure Result [...] 4 IMIPENEM S <=1 DEPARTMENT OF PATHOLOGY, [address] [place] [address] [facility] Permit #[id number] Rex Xiong M.D. Bookmaker'S Clerk RUN DATE: 03/10/11 [facility] NMI LIVE PAGE 2 RUN TIME: 1439 Specimen Inquiry RUN USER: INTERFACE Name: ALBIN LUEVANO Status: ANN MARIE CLI Re03/07/11 Age/Sex: 61/M Unit#: [id number] Location: [facility]. : 46 -- -- CONTINU ED Procedure Result Verified Site CULTURE SENSITIVITY Preliminary (continued) - +These results are deduced according to CLSI guidelines as they are related to tested antimicrobials with almost identical spectrum of activity. *These antibiotics are not available in the [facility] Formulary. Contact the Microbiology Department for any additional antibiotic reporting. *These antibiotics are not available in the [facility] Formulary. Contact the Microbiology Department for any additional antibiotic reporting. > GRAM STAIN SMEAR Final 03/08/11- 1521 ML POLYS MODERATE SMEAR: MOD GRAM POSITIVE COCCI MOD GRAM NEGATIVE BACILLI - [facility] Permit #[id number] [address] [place] [address] DEPARTMENT OF PATHOLOGY, [address] [place] [address] [facility] Permit #[id number] Albin Mario M.D. Director Mayra Pan M.D. Bookmaker'S Clerk 195 Anion gap measurement may be of limited value in the presence of any alkalosis, especially in a combined acid base disorder. . 196 A metabolite of Naproxen, O-desmethylnaproxen, has been shown to interfere with the Elsy- method for measuring total bilirubin. Samples from [...] LEVELS OF PSA MEASURED USING THE GABRIELA Terapio ACCESS HYBRITECH IMMUNOASSAY SHOULD NOT BE INTERPRETED ABSOLUTE EVIDENCE OF THE PRESENCE OR ABSENCE OF DISEASE. THE PSA VALUE SHOULD BE USED IN CONJUNCTION WITH OTHER PERTINENT CLINICAL DIAGNOSTIC PROCEDURES. A PSA value in the range of 0.1 to 0.6 ng/ml is indeterminate if being used as an indicator of recurrent or residual disease. . 203 ----- RUN DATE: 11/27/08 [facility] NMI LIVE PAGE 1 RUN TIME: 1407 Specimen Inquiry RUN USER: INTERFACE -- Name: ALBIN LUEVANO Status: REG REF Re11/23/08 Age/Sex: 58/M Unit#: [id number] Location: [address] [place] [address]. : [birth year] -- Specimen: [id number] Spec Date: 11/23/08 [facility] Dr: Varun Mccarty MD Spec Type: [...] 11/27/08 1407 -- -- DEPARTMENT OF PATHOLOGY, [address] [place] [address] [facility] Permit #[id number] Albin Mario M.D. Director Mayra Pan M.D. Outbound Telemarketer Dir екатерина -- 204 Anion gap measurement may be of limited value in the presence of any alkalosis, especially in a combined acid base disorder. . 205 Note change in reference range as of 12/01/07. The change was based on recommendations from the [place] [employer]. 206 Please note change in [...] IN SELECTIVE PATIENTS <6.0%. PLEASE REFER TO [place] [employer] DIABETIC CARE GUIDELINES FOR FURTHER INFORMATION. 213 Anion gap measurement may be of limited value in the presence of any alkalosis, especially in a combined acid base disorder. . 214 Note change in reference range as of 12/01/07. The change was based on recommendations from the [place] [employer]. 215 Please note change in [...] change was based on recommendations from the [place] [employer]. 220 Please note change in [...] <0.06 ng/ml NOT SUPPORTIVE OF DIAGNOSIS OF [place] 0.06 - 0.50 ng/ml INDETERMINATE: SUGGEST SERIAL STUDIES IF CLINICALLY INDICATED. > 0.5 ng/ml CONSISTENT WITH DIAGNOSIS OF [place] . 224 * SERUM LEVELS OF PSA MEASURED USING THE Anexon ACCESS HYBRITECH IMMUNOASSAY SHOULD NOT BE INTERPRETED [...] change was based on recommendations from the [place] [employer]. 228 Please note change in reference range effective 07 . 229 Anion gap measurement may be of limited value in the presence of any alkalosis, especially in a combined acid base disorder. . 230 Note change in reference range as of 12/01/07. The change was based on recommendations from the [place] [employer]. 231 Please note change in reference range effective 07 . 232 The detection limit for ETHANOL is 10.0 mg/dl . Values less than 10.0 mg/dl cannot be accurately measured. . 233 PLEASE NOTE NEW REFERENCE RANGES. 234 THERAPEUTIC TARGET FOR THE TREATMENT OF DIABETES MELLITUS PATIENTS IS <7% HBA1C, AND IN SELECTIVE PATIENTS <6.0%. PLEASE REFER TO [place] [employer] DIABETIC CARE GUIDELINES FOR FURTHER [...] change was based on recommendations from the [place] [employer]. 240 Please note change in reference range effective 07 . 241 New Reference Range and Interpretation effective 01/13/02 TnI (ng/ml) INTERPRETATION <0.06 ng/ml NOT SUPPORTIVE OF DIAGNOSIS OF [place] 0.06 - 0.50 ng/ml INDETERMINATE: SUGGEST SERIAL STUDIES IF CLINICALLY INDICATED. > 0.5 ng/ml CONSISTENT WITH DIAGNOSIS OF [place] . 242 THE URINE SPECIMEN WAS TESTED [...] 245 VERBAL TO GRAZYNA IN ER BY MAMKandis at 1613 on 10/19/07. Results read back [...] LEVELS OF PSA MEASURED USING THE GABRIELA Terapio ACCESS HYBRITECH IMMUNOASSAY SHOULD NOT BE INTERPRETED ABSOLUTE EVIDENCE OF THE PRESENCE OR ABSENCE OF DISEASE. THE PSA VALUE SHOULD BE USED IN CONJUNCTION WITH OTHER PERTINENT CLINICAL DIAGNOSTIC PROCEDURES. Procedures Date Code Description Status 03/21/2018 16964 EKG Tracing & Interpretation Completed 02/06/2018 46795 Sleep Study Unattended,HRT Rate,Oxygen Sat,Resp Completed Effort/Airflow 12/22/2017 15131 ECHO Transthorasic Realtime 2D W Doppler & Color Flow Completed Hosp 12/20/2017 80253 Removal Devitalized Tissue Wound Greater Than 20 Completed Square CM 12/20/2017 06002 Removal Devitalization Tissue Wound Less Than Equal 20 Completed Square CM 12/17/2017 70730 Removal Devitalization Tissue Wound Less Than Equal 20 Completed Square CM 12/10/2017 13379 Application Skin Graft Face,Scalp,Eyelids,Mouth, Neck Completed Up To 100CM 12/03/2017 86529 Removal Devitalization Tissue Wound Less Than Equal 20 Completed Square CM 11/26/2017 30358 Hyperbaric Oxygen Therapy By Physician Completed 11/26/2017 15131 Removal Devitalization Tissue Wound Less Than Equal 20 Completed Square CM 11/25/2017 11759 Hyperbaric Oxygen Therapy By Physician Completed 11/23/2017 07214 Hyperbaric Oxygen Therapy By Physician Completed 11/23/2017 87067 Apply Total Contact Leg Cast Completed 11/18/2017 60963 Hyperbaric Oxygen Therapy By Physician Completed 11/17/2017 20869 Hyperbaric Oxygen Therapy By Physician Completed 11/16/2017 08528 Hyperbaric Oxygen Therapy By Physician Completed 11/12/2017 97581 Hyperbaric Oxygen Therapy By Physician Completed 11/12/2017 33727 Removal Devitalization Tissue Wound Less Than Equal 20 Completed Square CM 11/11/2017 28626 Hyperbaric Oxygen Therapy By Physician Completed 11/10/2017 36780 Hyperbaric Oxygen Therapy By Physician Completed 11/09/2017 90418 Hyperbaric Oxygen Therapy By Physician Completed 11/05/2017 91188 Hyperbaric Oxygen Therapy By Physician Completed 11/04/2017 94980 Hyperbaric Oxygen Therapy By Physician Completed 11/03/2017 36133 Hyperbaric Oxygen Therapy By Physician Completed 11/02/2017 07516 Hyperbaric Oxygen Therapy By Physician Completed 10/29/2017 05982 Removal Devitalization Tissue Wound Less Than Equal 20 Completed Square CM 10/28/2017 28196 Hyperbaric Oxygen Therapy By Physician Completed 10/27/2017 45492 Hyperbaric Oxygen Therapy By Physician Completed 10/26/2017 44507 Hyperbaric Oxygen Therapy By Physician Completed 10/22/2017 35748 Hyperbaric Oxygen Therapy By Physician Completed 10/22/2017 89696 Removal Devitalization Tissue Wound Less Than Equal 20 Completed Square CM 10/21/2017 93053 Hyperbaric Oxygen Therapy By Physician Completed 10/20/2017 86197 Hyperbaric Oxygen Therapy By Physician Completed 10/19/2017 19295 Hyperbaric Oxygen Therapy By Physician Completed 10/15/2017 77210 Hyperbaric Oxygen Therapy By Physician Completed 10/14/2017 21475 Hyperbaric Oxygen Therapy By Physician Completed 10/14/2017 83384 Removal Devitalization Tissue Wound Less Than Equal 20 Completed Square CM 10/12/2017 38743 Hyperbaric Oxygen Therapy By Physician Completed 10/11/2017 04203 EKG, Interpretation Only Completed 10/08/2017 56625 Apply Total Contact Leg Cast Completed 10/01/2017 24349 Apply Total Contact Leg Cast Completed 09/17/2017 24333 Application Skin Graft Face,Scalp,Eyelids,Mouth, Neck Completed Up To 100CM 09/10/2017 54177 Application Skin Substitute Graft Trunk,Arms Lets Up Completed To 100 SQ CM 08/27/2017 25684 Removal Devitalized Tissue Wound Greater Than 20 Completed Square CM 08/27/2017 16715 Removal Devitalization Tissue Wound Less Than Equal 20 Completed Square CM 08/13/2017 52638 Hyperbaric Oxygen Therapy By Physician Completed 08/12/2017 25292 Hyperbaric Oxygen Therapy By Physician Completed 08/11/2017 04826 Hyperbaric Oxygen Therapy By Physician Completed 08/06/2017 51353 Hyperbaric Oxygen Therapy By Physician Completed 08/04/2017 67182 Hyperbaric Oxygen Therapy By Physician Completed 08/03/2017 24087 Hyperbaric Oxygen Therapy By Physician Completed 08/02/2017 03812 Hyperbaric Oxygen Therapy By Physician Completed 07/30/2017 99917 Hyperbaric Oxygen Therapy By Physician Completed 07/29/2017 25943 Hyperbaric Oxygen Therapy By Physician Completed 07/28/2017 44429 Hyperbaric Oxygen Therapy By Physician Completed 07/27/2017 26098 Hyperbaric Oxygen Therapy By Physician Completed 07/23/2017 41558 Debridement Muscle/Fascia,Epidermis/Dermis/Tissue,1St Completed 20 SQ CM 07/23/2017 69353 Debridement Skin,& sq Tissue Completed 07/22/2017 39944 Hyperbaric Oxygen Therapy By Physician Completed 07/21/2017 14922 Hyperbaric Oxygen Therapy By Physician Completed 07/20/2017 47974 Hyperbaric Oxygen Therapy By Physician Completed 07/19/2017 47345 Hyperbaric Oxygen Therapy By Physician Completed 07/15/2017 53262 Hyperbaric Oxygen Therapy By Physician Completed 07/14/2017 65714 Hyperbaric Oxygen Therapy By Physician Completed 07/13/2017 73595 Hyperbaric Oxygen Therapy By Physician Completed 07/12/2017 99852 Hyperbaric Oxygen Therapy By Physician Completed 07/02/2017 44509 Hyperbaric Oxygen Therapy By Physician Completed 07/01/2017 16950 Hyperbaric Oxygen Therapy By Physician Completed 06/30/2017 93845 Hyperbaric Oxygen Therapy By Physician Completed 06/29/2017 23424 Hyperbaric Oxygen Therapy By Physician Completed 06/28/2017 78711 Hyperbaric Oxygen Therapy By Physician Completed 06/28/2017 94933 Hyperbaric Oxygen Therapy By Physician Completed 06/25/2017 48336 Hyperbaric Oxygen Therapy By Physician Completed 06/24/2017 12035 Hyperbaric Oxygen Therapy By Physician Completed 06/24/2017 90685 Removal Devitalization Tissue Wound Less Than Equal 20 Completed Square CM 06/24/2017 53177 Debridement Skin,& sq Tissue Completed 06/23/2017 77195 Hyperbaric Oxygen Therapy By Physician Completed 06/23/2017 35791 Hyperbaric Oxygen Therapy By Physician Completed 06/18/2017 87913 Debridement Skin, Subcutaneous Tissue & Muscle Completed 06/11/2017 63303 Apply Total Contact Leg Cast Completed 06/04/2017 17520 Removal Devitalization Tissue Wound Less Than Equal 20 Completed Square CM 06/04/2017 65438 Debridement Muscle/Fascia,Epidermis/Dermis/Tissue,1St Completed 20 SQ CM 06/04/2017 37146 Debridement Skin,& sq Tissue Completed 05/28/2017 87624 Debridement Completed Muscle/Fascia,Epidermis/Dermis/Tissue,Addtl 20 SQ CM 05/28/2017 43923 Debridement Skin, Subcutaneous Tissue & Muscle Completed 05/21/2017 34776 Debridement Skin, Subcutaneous Tissue & Muscle Completed 05/02/2017 35470 ECHO Transthorasic Realtime 2D W Doppler & Color Flow Completed Hosp 04/13/2017 78779 Amputation Metatarsal W/Toe Completed 03/29/2017 47204 EKG Tracing & Interpretation Completed 01/25/2017 [id number] Colonoscopy Completed 11/12/2016 35850 EKG Tracing & Interpretation Completed 04/15/2016 95605 Holter Monitor Review (24 hr)dr review & interp only Completed 04/14/2016 44168 ECG Monitor/Recording W/Visual Superimposition Completed Scanning 03/31/2016 19720 EKG Tracing & Interpretation Completed 03/23/2016 13020 Sleep Study Unattended,HRT Rate,Oxygen Sat,Resp Completed Effort/Airflow 03/23/2016 81834 ECHO Transthoracic, Real-Time 2D With Doppler And Completed Color Flow 02/26/2016 47190 EKG Tracing & Interpretation Completed 07/15/2012 [id number] Diabetic Retinal Eye Exam Completed 11/23/2008 44994117 Colonoscopy Completed 12/09/2007 61618 Treadmill Interp/Report Only Completed 12/09/2007 84975 Treadmill Interp/Report Only Completed 12/09/2007 66790 Stress Test Supervsn W/Out I/R Completed 12/06/2007 78226 EKG Tracing & Interpretation Completed 12/06/2007 14106 EKG Tracing & Interpretation Completed Encounters Type Date Location Provider Dx Diagnosis Office Visit 01/26/2018 Orthopedic Marlon Buckley, 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, left ankle E11.621 Type 2 diabetes mellitus with foot ulcer Office Visit 01/21/2018 10:15a Wound Care Steffen Rojas, 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 Center AT [facility] , FACS of left heel, stage 4 S81.802A Unspecified open wound, left lower leg, initial encounter E08.621 Diabetes mellitus due to underlying condition w foot ulcer E66.01 Morbid (severe) obesity due to excess calories E11.621 Type 2 diabetes mellitus with foot ulcer M86.271 Subacute osteomyelitis, right ankle and foot Office Visit 01/10/2018 11:00a Orthopedic Marlon Buckley L97.429 Non-prs Services Of chronic ulcer BelkisMAmy of left heel and midfoot w unsp severt Office Visit 01/04/2018 8:30a [facility] M25.372 Other MD Wanda instability, left ankle L97.429 Non-prs chronic ulcer of left heel and midfoot w unsp severt E11.621 Type 2 diabetes mellitus with foot ulcer I10 Essential (primary) hypertension F41.9 Anxiety disorder, unspecified F10.10 Alcohol abuse, uncomplicated [facility] I48.91 Unspecified 2:08p cecille Dockery M.D. atrial Hospitalists fibrillation D64.9 Anemia, unspecified K92.2 Gastrointestinal hemorrhage, unspecified L97.429 Non-prs chronic ulcer of left heel and midfoot w unsp severt E11.621 Type 2 diabetes mellitus with foot ulcer [facility] M25.372 Other 2:08p cecille Dockery M.D. instability, left Hospitalists ankle E11.621 Type 2 diabetes mellitus with foot ulcer L97.429 Non-prs chronic ulcer of left heel and midfoot w unsp severt D64.9 Anemia, unspecified I48.91 Unspecified atrial fibrillation Office Visit 12/31/2017 Orthopedic Kaur Rao, M25.372 Other 11:42a Services Of Alexey FARIA instability, left ankle Office Visit 12/29/2017 [facility] Janeen M25.372 Other 2:06p Asscecille salvador M.D. 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 E11.621 Type 2 diabetes mellitus with foot ulcer I48.91 Unspecified atrial fibrillation D64.9 Anemia, unspecified Office Visit 12/29/2017 11:41a Orthopedic Gertrude M25.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 , Services Of Rex Hankins left ankle C.M.AMartita M25.572 Pain in left ankle and joints of left foot Office Visit 12/28/2017 [facility] I48.91 Unspecified 2:06p Asscecille salvador NP atrial Hospitalists fibrillation D64.9 Anemia, unspecified L97.429 Non-prs chronic ulcer of left heel and midfoot w unsp severt E11.621 Type 2 diabetes mellitus with foot ulcer Office Visit 12/27/2017 [facility] I48.91 Unspecified 2:06p cecille Dockery NP atrial Hospitalists fibrillation D64.9 Anemia, unspecified E11.621 Type 2 diabetes mellitus with foot ulcer L97.429 Non-prs chronic ulcer of left heel and midfoot w unsp severt Office Visit 12/27/2017 9:55a [place] [facility] [place] M25.572 Pain in left Infectious Rex Barnhart ankle and Diseases joints of left foot I87.2 Venous insufficiency (chronic) (peripheral) L89.529 Pressure ulcer of left ankle, unspecified stage Office Visit 12/26/2017 [facility] I48.91 Unspecified 2:05p cecille Dockery M.D. atrial Hospitalists fibrillation D64.9 Anemia, unspecified L97.429 Non-prs chronic ulcer of left heel and midfoot w unsp severt E11.621 Type 2 diabetes mellitus with foot ulcer Office Visit 12/25/2017 [facility] D64.9 Anemia, 2:05p cecille Dockery M.D. unspecified Hospitalists I48.91 Unspecified atrial fibrillation L97.429 Non-prs chronic ulcer of left heel and midfoot w unsp severt E11.621 Type 2 diabetes mellitus with foot ulcer Office Visit 12/24/2017 [facility] D64.9 Anemia, 2:05p Asscecille salvador M.D. unspecified Hospitalists I95.9 Hypotension, unspecified I48.91 Unspecified atrial fibrillation L97.429 Non-prs chronic ulcer of left heel and midfoot w unsp severt E11.621 Type 2 diabetes mellitus with foot ulcer Office Visit 12/23/2017 [facility] D64.9 Anemia, 2:04p cecille Dockery M.D. 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 Office [facility]25.572 Pain in left Infectious Tarik Barnhart. ankle and Diseases joints of left foot M86.672 Other chronic osteomyelitis, left ankle and foot M86.671 Other chronic osteomyelitis, right ankle and foot I87.2 Venous insufficiency (chronic) (peripheral) Office Visit 12/22/2017 [facility] D64.9 Anemia, 2:04p Asscecille salvador M.D. 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 Office Visit 12/21/2017 [facility] Debi I48.91 Unspecified atrial 2:04p Assoccecille, [...] Services Of PAUL Oliva, RN, apnea (adult) [facility] ELEVATOR SUPERVISOR-BC (pediatric) R09.02 Hypoxemia E66.01 Morbid (severe) obesity due to excess calories Z68.42 Body mass index (BMI) 45.0-49.9, adult Office Visit 12/09/2017 4:00p [facility] Internal Ramez Lopez E11.69 Type 2 diabetes Violetta Akins M.D. mellitus with [place] other specified complication M86.271 Subacute osteomyelitis, right ankle and foot I10 Essential (primary) hypertension I48.91 Unspecified atrial fibrillation I87.2 Venous insufficiency (chronic) (peripheral) G47.33 Obstructive sleep apnea (adult) (pediatric) E78.00 Pure hypercholesterolemia, unspecified F41.9 Anxiety disorder, unspecified Office Visit 11/17/2017 9:15a Wound Care Dima Keller 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 Center AT [facility] MD Maria Ines of left heel, stage 4 M86.271 Subacute osteomyelitis, right ankle and foot Office Visit 10/26/2017 [facility] [place] M86.671 Other chronic 12:52p For Patricia Barnhart M.D. 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 L89.620 Pressure ulcer of left heel, unstageable Office Visit 09/28/2017 10:10a [facility] [place] 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 Infectious Rex Barnhart of left heel, Diseases stage 4 E11.621 Type 2 diabetes mellitus with foot ulcer M86.171 Other acute osteomyelitis, right ankle and foot E11.69 Type 2 diabetes mellitus with other specified complication Office Visit 09/22/2017 1:45p Wound Care Mayra Arita 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 Center AT [facility] MD Ger of left heel, stage 4 Office Visit 08/24/2017 1:30p Wound Care Lazaro Shah E11.621 Type 2 diabetes Center AT [facility] Fisher, M.D. mellitus with foot ulcer 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 of left heel, stage 4 Office Visit 08/20/2017 10:00a Wound Care Steffen Rojas 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 Center AT [facility] MD FACS of left heel, stage 4 [...] Shah E11.621 Type 2 diabetes Center AT [facility] Tarik Casarez. mellitus with foot ulcer 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 of left heel, stage 4 M86.172 Other acute osteomyelitis, left ankle and foot E66.01 Morbid (severe) obesity due to excess calories Office Visit 08/06/2017 11:00a Wound Care George Weller89.62[place] Pressure ulcer Center AT [facility] MD FACS of left heel, stage 4 Office Visit 07/30/2017 11:00a Wound Care George Weller89.Maty Pressure ulcer Center AT [facility] MD FACS of left heel, stage 4 [...] Office Visit 07/02/2017 1:30p Wound Care Lazaro Stratton Pressure ulcer [facility] AT [facility] Rex Casarez of left heel, stage 4 E11.621 Type 2 diabetes mellitus with foot ulcer E66.01 Morbid (severe) obesity due to excess calories Office Visit 06/29/2017 12:45p Wound Care Lazaro Stratton Pressure ulcer [facility] AT [facility] Rex Casarez of left heel, stage 4 L89.610 Pressure ulcer of right heel, unstageable E11.621 Type 2 diabetes mellitus with foot ulcer Office Visit 06/28/2017 1:30p Wound Care Aretha Oliva, T81.31xA Disruption of Center AT [facility] PAUL, RN, ELEVATOR SUPERVISOR- external operation (surgical) wound, NEC, init L89.622 Pressure ulcer of left heel, stage 2 S81.801A Unspecified open wound, right lower leg, initial encounter M86.172 Other acute osteomyelitis, left ankle and foot Office Visit 06/23/2017 [facility] Mayra Cyr, 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 2:00p AT [facility] MD of left heel, stage 4 Office Visit 05/11/2017 [facility] Cleopatra Marinelli L89.622 Pressure ulcer 9:36a Assoc,cecille Valle, MOTOR VEHICLES INSPECTOR of left heel, Hospitalists stage 2 L03.116 Cellulitis of left lower limb F10.239 Alcohol dependence with withdrawal, unspecified J96.01 Acute respiratory failure with hypoxia Office Visit 05/10/2017 [facility] Cleopatra Yves L89.622 Pressure ulcer 9:33a Assoc,cecille Valle MOTOR VEHICLES INSPECTOR of left heel, Hospitalists stage 2 L03.116 Cellulitis of left lower limb F10.239 Alcohol dependence with withdrawal, unspecified J96.01 Acute respiratory failure with hypoxia Office Visit 05/09/2017 9:31a [facility] [place] L89.622 Pressure ulcer Assoc,cecille Payne M.D.,FACP of left heel, Hospitalists stage 2 L03.116 Cellulitis of left lower limb F10.239 Alcohol dependence with withdrawal, unspecified Office Visit 05/08/2017 9:23a [facility] [place] L89.622 Pressure ulcer Assoc,cecille Payne M.D.,FACP of left heel, Hospitalists stage 2 J96.01 Acute respiratory failure with hypoxia L03.116 Cellulitis of left lower limb Office Visit 05/07/2017 9:22a [facility] Lydia J96.01 Acute respiratory Assoc,cecille Arguelles D.O. failure with Hospitalists hypoxia L03.116 Cellulitis of left lower limb F10.239 Alcohol dependence with withdrawal, unspecified L89.622 Pressure ulcer of left heel, stage 2 Office Visit 05/06/2017 9:21a [facility] J96.01 Acute respiratory Assoc,cecille Arguelles D.O. failure with Hospitalists hypoxia L03.116 Cellulitis of left lower limb F10.239 Alcohol dependence with withdrawal, unspecified L89.622 Pressure ulcer of left heel, stage 2 Office Visit 05/05/2017 9:19a [facility] J96.01 Acute respiratory Assoc,cecille Arguelles D.O. failure with Hospitalists hypoxia L03.116 Cellulitis of left lower limb F10.239 Alcohol dependence with withdrawal, unspecified L89.622 Pressure ulcer of left heel, stage 2 Office Visit 05/04/2017 9:17a [facility] J96.01 Acute respiratory Assoc,cecille Arguelles D.O. failure with Hospitalists hypoxia L03.116 Cellulitis of left lower limb F10.239 Alcohol dependence with withdrawal, unspecified L89.622 Pressure ulcer of left heel, stage 2 Office Visit 05/03/2017 [facility] [place] T81.31xA Disruption of [...] Left testicular pain Office Visit 05/03/2017 9:15a [facility] J96.01 Acute respiratory Assoc,cecille Arguelles D.O. failure with Hospitalists hypoxia L03.116 Cellulitis of left lower limb F10.239 Alcohol dependence with withdrawal, unspecified L89.622 Pressure ulcer of left heel, stage 2 Office Visit 05/02/2017 9:12a [facility] J96.01 Acute respiratory Assoc,cecille Arguelles D.O. failure with Hospitalists hypoxia L03.116 Cellulitis of left lower limb F10.239 Alcohol dependence with withdrawal, unspecified L89.622 Pressure ulcer of left heel, stage 2 Office Visit [facility]/01/2017 [facility] L03.116 Cellulitis of Assoc,pc [place] Arguelles left lower limb Hospitalists L89.622 Pressure ulcer of left heel, stage 2 F10.10 Alcohol abuse, uncomplicated I48.0 Paroxysmal atrial fibrillation Office Visit 04/30/2017 8:00a [facility] Jose R L03.116 Cellulitis of Assoc,cecille Pereira M.D. left lower limb Hospitalists L89.622 Pressure ulcer of left heel, stage 2 F10.10 Alcohol abuse, uncomplicated I48.0 Paroxysmal atrial fibrillation [facility] Other acute 9:55a Assoc,pc Nichol, MOTOR VEHICLES INSPECTOR osteomyelitis, left Hospitalists ankle and foot L97.509 Non-pressure chronic ulcer oth prt unsp foot w unsp severity E11.621 Type 2 diabetes mellitus with foot ulcer E66.01 Morbid (severe) obesity due to excess calories Office Visit 04/12/2017 Surgical Steffen Guerrero M86.172 Other acute 7:00a [facility] MD Bob, osteomyelitis, left FACS ankle and foot Office Visit 04/11/2017 [facility] Riky M86.172 Other acute 9:53a Assoc,pc Stallone, osteomyelitis, left Hospitalists M.D. ankle and foot L97.509 Non-pressure chronic ulcer oth prt unsp foot w unsp severity E11.621 Type 2 diabetes mellitus with foot ulcer E66.01 Morbid (severe) obesity due to excess calories Office Visit 03/29/2017 [place] Steffen Keller Z01.810 Encounter for 4:00p Cardiology Of DO Jose preprocedural [facility] cardiovascular examination I10 Essential (primary) hypertension E11.9 Type 2 diabetes mellitus without complications R60.0 Localized edema E66.8 Other obesity I48.91 Unspecified atrial fibrillation Office Visit 11/12/2016 4:00p [facility] Steffen S. I48.91 Unspecified atrial Of [place] Garcia DO fibrillation FAC I10 Essential (primary) hypertension G47.9 Sleep disorder, unspecified E11.9 Type 2 diabetes mellitus without complications Office Visit 08/10/2016 3:10p [facility] Internal Nurse Visit I10 Essential ( primary) Medicine - C hypertension [place] Office Visit 07/10/2016 4:00p [facility] Steffen S. I48.91 Unspecified atrial Of [place] Officer Garcia, DO fibrillation FACC G47.9 Sleep disorder, unspecified I10 Essential (primary) hypertension Office Visit 03/31/2016 4:00p [facility] Steffen Keller I48.91 Unspecified atrial Of [place] Garcia DO fibrillation FACC E66.8 Other obesity I10 Essential (primary) hypertension G47.9 Sleep disorder, unspecified E78.00 Pure hypercholesterolemia, unspecified Office Visit 03/04/2016 [facility] Internal Ramez Lopez I48.91 Unspecified atrial 4:00p Violetta Akins M.D. fibrillation [place] Office Visit 02/26/2016 [facility] I48.91 Unspecified atrial 9:15a Assoc,pc Cory fibrillation Hospitalists [place], [place] E11.9 Type 2 diabetes mellitus without complications E66.01 Morbid (severe) obesity due to excess calories I10 Essential (primary) hypertension Office Visit 02/26/2016 1:00p [facility] Man Lopez I48.91 Unspecified atrial Violetta Akins M.D. fibrillation [place] E11.9 Type 2 diabetes mellitus without complications R09.02 Hypoxemia Office Visit 10/24/2015 2:45p Pulmonology And Purvi G47.9 Sleep disorder, Sleep Services Of MD Marcel unspecified [facility] E66.01 Morbid (severe) obesity due to excess calories R09.02 Hypoxemia Office Visit 05/28/2015 2:40p [facility] Man Lopez E11.9 Type 2 diabetes Violetta Akins M.D. mellitus without [place] complications I10 Essential (primary) hypertension E78.0 Pure hypercholesterolemia F41.3 Other mixed anxiety disorders Z23 Encounter for immunization Office Visit 11/20/2014 3:20p [facility] Internal Ramez Lopez 707.15 Ulcer Of Violetta Akins M.D. Other Part Of [place] Foot Office Visit 09/25/2014 4:00p [facility] Man Lopez 782.3 Edema Violetta Akins M.D. [place] 250.00 Diabetes Mellitus W/O Compl Type II Or Unspec Controlled 401.1 Hypertension Benign 272.0 Hypercholesterolemia Pure 300.09 Anxiety States Other V03.82 Streptococcus Pneumoniae Vaccination Spec Other Office Visit 10/24/2013 2:00p [facility] Man Lopez 729.5 Pain In Limb Violetta Akins M.D. [place] Office Visit 02/06/2013 3:40p [facility] Internal Ramez Lopez 465.9 URI Upper Violetta Akins M.D. Respiratory [place] Infections Acute Unspec Sites 250.00 Diabetes Mellitus W/O Compl Type II Or Unspec Controlled Office Visit 06/30/2012 4:00p [facility] Internal Ramez Lopez 707.19 Ulcer Of Violetta Akins M.D. Other Part Of [place] Lower Limb 459.81 Venous Insufficiency (Peripheral) Unspec Office Visit 03/31/2012 1:00p [facility] Internal Caitlyn Karen, 250.00 Diabetes Medicine - N.P. Mellitus W/O Douglas Compl Type II Or Unspec Controlled v03.82 Streptococcus Pneumoniae Vaccination Spec Other Office Visit 12/10/2011 3:30p [facility] Internal Caitlyn Karen, 486 Pneumonia Medicine - N.P. Organism Unspec Douglas 278.01 Obesity Morbid 401.1 Hypertension Benign 272.0 Hypercholesterolemia Pure 250.00 Diabetes Mellitus W/O Compl Type II Or Unspec Controlled 790.21 Impaired Fasting Glucose Office Visit 11/19/2011 4:00p [facility] Internal Caitlyn Karen, 486 Pneumonia Medicine - N.P. Organism Unspec [place] 401.1 Hypertension Benign 272.0 Hypercholesterolemia Pure 278.01 Obesity Morbid Office Visit 03/03/2011 3:40p DO Not Use Gift Officer Ramez Lopez 790.21 Impaired Fasting AT Soledad Akins M.D. Glucose V04.81 Need For Prophylactic Vaccination & Inoculation/Influenza 401.1 Hypertension Benign 300.09 Anxiety States Other 272.0 Hypercholesterolemia Pure 707.15 Ulcer Of Other Part Of Foot Office Visit 01/24/2010 11:40a DO Not Use Gift Officer Ramez Lopez 401.1 Hypertension Benign AT Soledad Akins M.D. 300.09 Anxiety States Other 272.0 Hypercholesterolemia Pure V04.81 Need For Prophylactic Vaccination & Inoculation/Influenza v04.81 Need For Prophylactic Vaccination & Inoculation/Influenza Office Visit 01/02/2009 1:30p DO Not Use Gift Officer AT Ramez Lopez 707.15 Ulcer Of Other Soledad Akins M.D. Part Of Foot 401.1 Hypertension Benign 272.0 Hypercholesterolemia Pure 300.09 Anxiety States Other Office Visit 10/08/2008 2:00p [facility] AT Ramez Akins, 787.91 Diarrhea [facility] [place] 300.09 Anxiety States Other Office Visit 08/07/2008 3:00p [place] Ramez E. 789.00 Pain Abdominal Assoc AT Tamela AkinsPerico Unspec Site [facility] 787.91 Diarrhea 401.1 Hypertension Benign Office Visit 04/24/2008 3:00p [place] [facility] Ramez E. V72.83 Examination Assoc AT Rex Akins Preoperative Other [facility] Spec 272.0 Hypercholesterolemia Pure 401.1 Hypertension Benign 300.09 Anxiety States Other Office Visit 12/29/2007 [place] [facility] Ramez E. 272.0 Hypercholesterolemia Pure 2:30[facility] 401.1 Hypertension Benign Office Visit 12/06/2007 [place] [facility] Ramez E. 272.0 Hypercholesterolemia Pure 10:45a [facility] 786.05 Shortness Of Breath 401.1 Hypertension Benign V72.83 Examination Preoperative Other Spec Office Visit 11/07/2007 2:45p [place] [facility] Ramez E. 401.1 Hypertension [facility]ign [facility] 300.09 Anxiety States Other Office Visit 08/18/2007 [place] [facility] Ramez E. 401.1 Hypertension Benign 3:15p [facility] Visit 07/06/2007 [place] [facility] Ramez E. 401.1 Hypertension Benign 3:30p [facility] 01/05/2007 [place] [facility] Ramez E. 272.0 Hypercholesterolemia Pure 3:15p Assoc AT [facility] 401.1 Hypertension Benign 300.09 Anxiety States Other V04.81 Need For Prophylactic Vaccination & Inoculation/Influenza Plan of Treatment Future Appointment(s):04/15/2018 2:15 pm - Marlon Buckley [facility]/23/2018 3:40 pm - Ramez Akins M.D. at [facility] Internal Medicine - [id number]/29/2019 2:15 pm - Aretha Oliva DNP, RN, ELEVATOR SUPERVISOR-BC at [facility]
--- OUTSIDE RECORDS SUMMARY | 2018-04-07 15:41 | XMS REPORT | Continuity of Care Document ---
:1950 External Reference #:[id number] Author Name Aissatou Moscoso Care Team Providers Name Role Phone Ramez Akins III, MD Primary Care Physician Unavailable Payers Type Date Identification Numbers Payment Provider Subscriber Policy Number: [id number] Medicare Albin Luevano PayID: [id number] [address] [place] [address] Expires: 2018 Policy Number: [id number] Medicare Albin Luevano PayID: [id number] [address] [place] [address] Policy Number: [id number] [employer] Albin Luevano Group Number: [id number] [address] PayID: [id number] [place] [address] Advance Directives Description No Information Available Problems [...] History Date Family Member(s) Problem(s) Comments General [place] General Cancer : (age 50 Years) Father due to [place] Mother due to Colon Cancer () Social History Type Date Description Comments Sex Unknown Marital Status Lives With 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 Metoprolol 04/07 Active Tablets 100mg 90tab Take 1 Tablet Ramez E. Succinate ER ER 24HR s By Mouth [place], Daily M.D. Valium 11/27 Active Tablets 5mg 20tab 1 by mouth Ramez E. /2008 s three times a M[place], day as needed M.D. Citalopram 05/17 Active Tablets 20mg 90tab Take 1 Tablet Ramez E. Hydrobromide s By Mouth [place], Daily M.D. [...] iv x 6 wks at D. - [facility], 12/19 M.D. Metronidazole 09/28 Hx Tablets 500mg 30tab 1 tab by mouth M86.171 Bryn s every 12 hours D. [facility], 12/08 M.D. Amlodipine 03/29 Hx Tablets 5mg 90tab 1 by mouth Steffen S. Besylate s every day Garcia, - DO [facility] 03/21 Amlodipine 11/27 Hx Tablets 10mg 90tab 1 by mouth Steffen S. Besylate /2016 s every day Garcia, - DO [facility] 03/29 Losartan 08/14 Hx Tablets 100-25mg 30tab 1 by mouth Ramez E. Potassium/[place] /2016 s every day [place] chlorothiazide - [...] 90tab take 1 tablet E78.0 Ramez Lopez Potassium/[place] s james Akins chlorothiazide Adrianne Goodman 08/24 [...] Tablets 10mg 30tab 5tabx 2days,4 Unknown s [id number] - [id number],2ta 10/10 bt2bahg,1tabx /2013 ay. Levofloxacin Hx Tablets 750mg 7tabs 1 tab po qd x Ramez E. 7 days Adrianne Akins M.D. 10/10 Ventolin HFA Hx Aerosol 108(90Bas 1unit 2 puffs po qid Unknown e) mcg/ac s prn - 10/24 Sulfamethoxazol Hx Tablets 800-160mg 20tab 1 po bid Unknown e/Trimethoprim /0000 s DS - 10/10 Mupirocin Hx Ointment 2% 22gm apply to skin lesions twice - daily 10/24 Doxycycline Hx Capsules 100mg one tablet Unknown Hyclate three times a - day (per 09/27 Bronwyn [facility] /2018 DC) Immunizations CPT Code Status Date Vaccine Lot # [id number] Given 01/23/2016 Flu Vaccine NOS [id number] Given 05/28/2015 Tdap - Tetanus/Diptheria/Acellular Pertussis [id number] Given 02/07/2015 Fluzone High Dose 61517 Given 09/25/2014 Pneumococcal Conjugate Vaccine 13 Valent For [id number] Intramuscular Use 57744 Given 01/23/2014 Fluzone High Dose 55533 Given 10/10/2013 Zoster (Zostavax) [id number] Given 03/22/2013 Flu Vaccine NOS 40155 Given 03/31/2012 Pneumonia Vaccine [id number] Q2038 Given 02/11/2012 Fluzone Vaccine 07079 Given 03/03/2011 Influenza Virus 3Yrs & Over [id number] 82378 Given 01/24/2010 Influenza Virus 3Yrs & Over [id number] 40541 Given 02/07/2009 Influenza Virus 3Yrs & Over 91431 Given 02/07/2009 Influenza Virus 3Yrs & Over [id number] 52635 Given 01/05/2007 Influenza Virus 3Yrs & Over [id number] 28118 Given 06/02/2005 Td (History By Patient) Vital Signs Date Vital Result Comment 03/21/2018 2:11pm Height 75 inches 6'3" Weight 385.00 lb pt weight himself at home Heart Rate 63 /min BP Systolic Sitting 145 mmHg LA lg cuff BP Diastolic Sitting 78 mmHg LA lg cuff Respiratory Rate 18 /min O2 % BldC Oximetry 97 % BMI (Body Mass Index) 48.1 kg/m2 Ejection Fraction 60-65% 12/22/17 echo [facility] 01/26/2018 3:04pm Height 75 inches 6'3" Heart [...] Result H/L Range Note Laboratory test 12/21/2017 [facility] Troponin-I 0.02 ng/mL < 0.[address] (TnI) [place] [address] [phone] Comp Metabolic 12/21/2017 [facility] Sodium 135 mmol/L N 135- [address] [place] [address] [phone] Potassium 4.0 mmol/L N 3.5-5.0 Chloride 103 [...] >60 Egfr 105.3 >60 1 Inr/Protime 12/21/2017 [facility] Inr 1.03 High 0.77-1.[address] [place] [address] [phone] Urine Culture And 12/21/2017 [facility] Urine SEE RESULT [address] [place] [address] [phone] Laboratory test 12/21/2017 [facility] Lactic Acid 1.6 mmol/L N 0.5-2.0 [address] [place] [address] [phone] Urinalysis Profile 12/21/2017 [facility] Urine Color Yellow [address] [place] [address] [phone] Urine Appearance Clear Urine Specific [place] 1.016 N 1.010-1.030 Urine pH 6.0 N 5-9 Urine Urobilinogen Negative Negative Urine Ketones Negative Negative Urine Protein Negative Negative Urine Leukocytes Trace Abnormal Negative Urine Blood 1+ Abnormal Negative Urine Nitrite Negative Negative Urine Bilirubin Negative Negative Urine Glucose Negative Negative Urine White Blood Cell Trace(0-5/hpf) Absent Urine Red Blood Cell Absent Absent Urine Bacteria Absent Absent CBC Auto 12/21/2017 [facility] White Blood 16.6 10^3/uL High 3.5-10.[address] [place] [address] [phone] Red Blood Count 2.70 10^6/uL Low 4.00-5.40 [...] High 1.5-7.7 Iron & Iron Binding 12/21/2017 [facility] Iron 56 g/dL N 50- [address] [place] [address] [phone] Unsaturated Iron Binding 298 g/dL Total Iron Binding Capacity 354 g/dL N 250-450 Transferrin 253 mg/dL N 203-362 % Iron Saturation 16 % N 15-55 Laboratory test 12/21/2017 [facility] Magnesium 1.9 mg/dL N 1.9-2.7 [place] [address] [phone] C Reactive Protein 15.73 mg/L High <8.01 TSH (Thyroid Stim Horm) 6.97 mcIU/mL High 0.34-5.60 Ferritin 90.7 ng/mL N 24-336 Vitamin B12 348 pg/mL N 180-914 4 Laboratory test 12/21/2017 [facility] Pathologist Review (SEE NOTE) 5 [place] [address] [phone] Blood Culture SEE RESULT BELOW 6 Manual Differential 12/21/2017 [facility] Immature 2 % N 0-9 [facility] [place] [address] [phone] Neutrophil % 78 % N 38-83 Band [...] N 0-0.2 Macrocytosis 1+ Laboratory test 12/09/2017 [facility] In House Hemoglobin A1c 5.1 5-7 finding Laboratory test 12/09/2017 [facility] Epifix 3.5X3.5 SEE RESULTS 7, [address] [place] [address] Mesh BELO <[place] [address] NOTE> [phone] Laboratory test 11/26/2017 [facility] Point of Care 108 mg/dL High 70-100 [address] [place] [address] [phone] Laboratory test 11/26/2017 [facility] Point of Care 134 mg/dL High 70-100 [address] [place] [address] [phone] Laboratory test 11/26/2017 [facility] Point of Care 124 mg/dL High 70-100 [address] Glucose [place], [place] 3565463 [phone] Laboratory test 11/25/2017 [facility] Point of Care 108 mg/dL High 70-100 [address] Glucose [place], [place] [address]30870 [phone] Laboratory test 11/25/2017 [facility] Point of Care 130 mg/dL High 70-100 [address] Glucose [place], [place] [address] [phone] Laboratory test 11/23/2017 [facility] Point of Care 123 mg/dL High 70-100 [address] Glucose [place], [place] [address]22387 [phone] Laboratory test 11/23/2017 [facility] Point of Care 152 mg/dL High 70-100 [address] [place] [address] [phone] Laboratory test 11/18/2017 [facility] Point of Care 112 mg/dL High 70-100 [address] Glucose [place], [place] 0985128 [phone] Laboratory test 11/18/2017 [facility] Point of Care 135 mg/dL High 70-100 [address] Gl[place], [place] 124[address]96 [phone] Laboratory test 11/17/2017 [facility] Point of Care 99 mg/dL N 70-100 [address] [place] [address] [phone] Laboratory test 11/17/2017 [facility] Point of Care 142 mg/dL High 70-100 [address] Glucose [place], [place] 470[address]20 [phone] Laboratory test 11/16/2017 [facility] Point of Care 112 mg/dL High 70-100 [address] Gl[place], [place] [address]37316 [phone] Laboratory test 11/16/2017 [facility] Point of Care 154 mg/dL High 70-100 [address] [place] [address] [phone] Laboratory test 11/15/2017 [facility] Point of Care 115 mg/dL High 70-100 [address] [place], [place] [address] [phone] Laboratory test 11/15/2017 [facility] Point of Care 117 mg/dL High 70-100 [address] Glucose [place], [place] 5035463 [phone] Laboratory test 11/12/2017 [facility] Point of Care 124 mg/dL High 70-100 [address] [place] [address] [phone] Laboratory test 11/12/2017 [facility] Point of Care 143 mg/dL High 70-100 [address] [place] [address] [phone] Laboratory test 11/11/2017 [facility] Point of Care 124 mg/dL High 70-100 [address] [place], [place] 8635158 [phone] Laboratory test 11/11/2017 [facility] Point of Care 142 mg/dL High 70-100 [address] [place], [place] [address]378288 [phone] Laboratory test 11/10/2017 [facility] Point of Care 109 mg/dL High 70-100 [address] Gl[place], [place] 1689114 [phone] Laboratory test 11/10/2017 [facility] Point of Care 159 mg/dL High 70-100 [address] [place], [place] [address]47 [phone] Laboratory test 11/09/2017 [facility] Point of Care 109 mg/dL High 70-100 [address] [place] [address] [phone] Laboratory test 11/09/2017 [facility] Point of Care 135 mg/dL High 70-100 [address] [place] [address] [phone] CBC Auto Diff 11/08/2017 [facility] White Blood 6.8 10^3/uL N 3.5-10.[address] [place] [address] [phone] Red Blood Count 3.93 10^6/uL Low 4.00-5.40 [...] Cells % 0.3 Comp Metabolic Panel 11/08/2017 [facility] Sodium 139 mmol/L N 135-[address] [place], [place] [address]95 [phone] Potassium 3.9 mmol/L N 3.5-5.0 Chloride 101 [...] Egfr 100.0 >60 32 Laboratory test 11/08/2017 [facility] C Reactive 7.49 mg/L N < 8.[address] [place] [address] [phone] Laboratory test 11/08/2017 [facility] Point of Care 113 mg/dL High 70-100 [address] [place] [address] [phone] Laboratory test 11/08/2017 [facility] Point of Care 159 mg/dL High 70-100 [address] [place] [address] [phone] Laboratory test 11/05/2017 [facility] Point of Care 121 mg/dL High 70-100 [address] [place] [address] [phone] Laboratory test 11/05/2017 [facility] Point of Care 121 mg/dL High 70-100 [address] [place] [address] [phone] Laboratory test 11/04/2017 [facility] Point of Care 113 mg/dL High 70-100 [address] [place] [address] [phone] Laboratory test 11/04/2017 [facility] Point of Care 149 mg/dL High 70-100 [address] [place] [address] [phone] Laboratory test 11/03/2017 [facility] Point of Care 98 mg/dL N 70-100 [address] [place] [address] [phone] Laboratory test 11/03/2017 [facility] Point of Care 158 mg/dL High 70-100 [address] [place] [address] [phone] Laboratory test 11/02/2017 [facility] Point of Care 108 mg/dL High 70-100 [address] [place] [address] [phone] Laboratory test 11/02/2017 [facility] Point of Care 153 mg/dL High 70-100 [address] [place] [address] [phone] Comp Metabolic 11/01/2017 [facility] Sodium 137 N 135-[address] mmol/[place] [address] [phone] Potassium 4.0 mmol/L N 3.5-5.0 Chloride 100 [...] Egfr 100.0 >60 43 Laboratory test 11/01/2017 [facility] C Reactive 22.08 mg/L High <8.[address] [place] [address] [phone] CBC Auto Diff 11/01/2017 [facility] White Blood 7.8 N 3.5- 10.[address] Count 10^3/[place] [address] [phone] Red Blood Count 4.16 10^6/uL N 4.00-5.40 [...] Blood Cells % 0.1 Laboratory test 11/01/2017 [facility] Point of 94 mg/dL N 70- [address] [facility] [place] [address] [phone] Laboratory test 11/01/2017 [facility] Point of 154 mg/dL High 70-100 45 finding [address] [facility] Glucose [place], [place] [address]307[address] [phone] Laboratory test 10/28/2017 [facility] Point of 99 mg/dL N 70- 100 46 finding [address] [facility] [place] [address] [phone] Laboratory test 10/28/2017 [facility] Point of 124 mg/dL High 70-100 47 finding [address] [facility] [place] [address] [phone] Laboratory test 10/27/2017 [facility] Point of 127 mg/dL High 70-100 48 finding [address] [facility] [place] [address] [phone] Laboratory test 10/27/2017 [facility] Point of 97 mg/dL N 70- 100 [address] [place] [address] [phone] Laboratory test 10/26/2017 [facility] Point of 124 mg/dL High 70-100 50 finding [address] [facility] [place] [address] [phone] Laboratory test 10/26/2017 [facility] Point of 125 mg/dL High 70-100 51 finding [address] [facility] [place] [address] [phone] Laboratory test 10/26/2017 [facility] Point of 109 mg/dL High 70-100 [address] [place] [address] [phone] CBC Auto Diff 10/25/2017 [facility] White Blood 6.7 N 3.5- 10.[address] Count 10^3/[place] [address] [phone] Red Blood Count 4.32 10^6/uL N 4.00-5.40 [...] Cells % 0.1 Comp Metabolic Panel 10/25/2017 [facility] Sodium 139 mmol/L N 135-[address] [place] [address] [phone] Potassium 3.9 mmol/L N 3.5-5.0 Chloride 103 [...] Egfr 96.3 >60 53 Laboratory test 10/25/2017 [facility] C Reactive 4.74 mg/L N < 8.[address] [place] [address] [phone] Laboratory test 10/25/2017 [facility] Point of Care 118 mg/dL High 70-100 [address] [place] [address] [phone] Laboratory test 10/25/2017 [facility] Point of Care 117 mg/dL High 70-100 [address] [place] [address] [phone] Laboratory test 10/25/2017 [facility] Point of Care 99 mg/dL N 70-100 [address] [place] [address] [phone] Laboratory test 10/22/2017 [facility] Point of Care 101 mg/dL High 70-100 [address] [place] [address] [phone] Laboratory test 10/22/2017 [facility] Point of Care 132 mg/dL High 70-100 [address] [place] [address] [phone] Laboratory test 10/21/2017 [facility] Point of Care 111 mg/dL High 70-100 [address] [place] [address] [phone] Laboratory test 10/21/2017 [facility] Point of Care 180 mg/dL High 70-100 [address] [place] [address] [phone] Laboratory test 10/20/2017 [facility] Point of Care 119 mg/dL High 70-100 [address] [place] [address] [phone] Laboratory test 10/20/2017 [facility] Point of Care 115 mg/dL High 70-100 [address] [place] [address] [phone] Laboratory test 10/19/2017 [facility] Point of Care 123 mg/dL High 70-100 [address] [place] [address] [phone] Laboratory test 10/19/2017 [facility] Point of Care 134 mg/dL High 70-100 [address] [place] [address] [phone] CBC Auto Diff 10/18/2017 [facility] White Blood 6.5 N 3.5- 10.[address] Count 10^3/[place] [address] [phone] Red Blood Count 4.23 10^6/uL N 4.00-5.40 [...] Cells % 0.1 Comp Metabolic Panel 10/18/2017 [facility] Sodium 138 mmol/L N 135-[address] [place] [address] [phone] Potassium 3.7 mmol/L N 3.5-5.0 Chloride 102 [...] Egfr 90.7 >60 65 Laboratory test 10/18/2017 [facility] C Reactive 11.79 mg/L High <8.[address] [place] [address] [phone] Laboratory test 10/18/2017 [facility] Point of Care 117 mg/dL High 70-100 [address] [place] [address] [phone] Laboratory test 10/18/2017 [facility] Point of Care 153 mg/dL High 70-100 [address] [place] [address] [phone] Laboratory test 10/15/2017 [facility] Point of Care 100 mg/dL N 70-100 [address] [place] [address] [phone] Laboratory test 10/15/2017 [facility] Point of Care 115 mg/dL High 70-100 [address] [place] [address] [phone] Laboratory test 10/14/2017 [facility] Point of Care 144 mg/dL High 70-100 [address] [place] [address] [phone] Laboratory test 10/14/2017 [facility] Point of Care 117 mg/dL High 70-100 [address] [place] [address] [phone] Laboratory test 10/14/2017 [facility] Point of Care 93 mg/dL N 70-100 [address] [place] [address] [phone] Laboratory test 10/12/2017 [facility] Point of Care 169 mg/dL High 70-100 [address] [place] [address] [phone] Laboratory test 10/12/2017 [facility] Point of Care 135 mg/dL High 70-100 [address] [place] [address] [phone] Laboratory test 10/12/2017 [facility] Point of Care 107 mg/dL High 70-100 [address] [place] [address] [phone] CBC Auto Diff 10/11/2017 [facility] White Blood 6.9 N 3.5- 10.[address] Count 10^3/[place] [address] [phone] Red Blood Count 4.21 10^6/uL N 4.00-5.40 [...] Cells % 0.1 Comp Metabolic Panel 10/11/2017 [facility] Sodium 138 mmol/L N 135-[address] [place] [address] [phone] Potassium 4.0 mmol/L N 3.5-5.0 Chloride 104 [...] Egfr 91.8 >60 76 Laboratory test 10/11/2017 [facility] C Reactive 7.43 mg/L N < 8.[address] [place] [address] [phone] Laboratory test 10/11/2017 [facility] Point of Care 119 mg/dL High 70-[address] [place] [address] [phone] Laboratory test 10/11/2017 [facility] Point of Care 131 mg/dL High 70-[address] [place] [address] [phone] CBC Auto Diff 10/04/2017 [facility] White Blood 5.9 N 3.5- 10.[address] Count 10^3/[place] [address] [phone] Red Blood Count 4.27 10^6/uL N 4.00-5.40 [...] Cells % 0 Comp Metabolic Panel 10/04/2017 [facility] Sodium 134 mmol/L Low 135-145 [address] [place] [address] [phone] Potassium 3.9 mmol/L N 3.5-5.0 Chloride 100 [...] Egfr 98.7 >60 79 Laboratory test 10/04/2017 [facility] C Reactive 12.45 mg/L High <8.[address] [place] [address] [phone] Comp Metabolic 10/02/2017 [facility] Sodium 134 mmol/L Low 135 -[address] [place] [address] [phone] Potassium 3.8 mmol/L N 3.5-5.0 Chloride 98 [...] 94.0 >60 80 CBC Auto Diff 10/02/2017 [facility] White Blood 6.3 10^3/uL N 3.5-10.[address] [place] [address] [phone] Red Blood Count 4.29 10^6/uL N 4.00-5.40 [...] Blood Cells % 0.2 Laboratory test 10/02/2017 [facility] C Reactive 5.92 mg/L N < 8.[address] [place] [address] [phone] Wound 09/28/2017 [facility] Wound/Misc SEE RESULT 81, 82 Culture/Sensi [address] [address] Stain [phone] CBC Auto Diff 09/17/2017 [facility] White Blood 5.8 N 3.5- 10.[address] Count 10^3/uL [place], [place] [address]759[address] [phone] Red Blood Count 4.18 10^6/uL N 4.0-5.4 [...] Blood Cells % 0 Basic Metabolic 09/17/2017 [facility] Sodium 135 mmol/L Low 139-[address] [place] [address] [phone] Potassium 4.5 mmol/L N 3.5-5.0 Chloride 100 mmol/L Low 101-111 Co2 Carbon Dioxide 28 mmol/L N 22-32 Anion Gap 7 mmol/L N 2-11 Glucose 101 mg/dL High 70-100 Blood Urea Nitrogen 12 mg/dL N 6-24 Creatinine 1.09 mg/dL N 0.67-1.17 BUN/Creatinine Ratio 11.0 N 8-20 Calcium 9.3 mg/dL N 8.6-10.3 Egfr Non- 67.1 >60 Egfr 86.3 >60 83 Laboratory test 09/17/2017 [facility] C Reactive 14.45 mg/L High < 5.00 [address] [place] [address] [phone] Hemoglobin A1c (Glyco HGB) 5.4 % N 4.0-5.6 85 Laboratory test 09/16/2017 [facility] Epifix 3.5X3.5 SEE RESULTS 86, [address] Mesh BELO <[place] [address] NOTE> [phone] Laboratory test 09/09/2017 [facility] Epifix 3.5X3.5 SEE RESULTS [address] Mesh BELO <[place] [address] NOTE> [phone] Laboratory test 08/13/2017 [facility] Point of Care 119 mg/dL High 70-1 [address] Glucose 00 [place] [address] [phone] Laboratory test 08/13/2017 [facility] Point of Care 129 mg/dL High 70-1 90 finding 101 [address] Glucose [address] [place] [address] [phone] Laboratory test 08/12/2017 [facility] Point of Care 113 mg/dL High 70-1 [address] Glucose 00 [place] [address] [phone] Laboratory test 08/12/2017 [facility] Point of Care 178 mg/dL High 70-1 [address] Glucose 00 [place] [address] [phone] Laboratory test 08/11/2017 [facility] Point of Care 120 mg/dL High 70-1 [address] Glucose 00 [place], [place] [phone] Laboratory test 08/11/2017 [facility] Point of Care 153 mg/dL High 70-1 [address] Glucose 00 [place] [address] [phone] Laboratory test 08/09/2017 [facility] Point of Care 109 mg/dL High 70-1 [address] Glucose 00 [place] [address] [phone] Laboratory test 08/09/2017 [facility] Point of Care 154 mg/dL High 70-1 [address] Glucose 00 [place] [address] [phone] Laboratory test 08/06/2017 [facility] Point of Care 109 mg/dL High 70-1 [address] Glucose 00 [place] [address] [phone] Laboratory test 08/06/2017 [facility] Point of Care 134 mg/dL High 70-1 [address] Glucose 00 [place] [address] [phone] Laboratory test 08/04/2017 [facility] Point of Care 117 mg/dL High 70-1 [address] Glucose 00 [place] [address] [phone] Laboratory test 08/04/2017 [facility] Point of Care 138 mg/dL High 70-1 [address] Glucose 00 [place] [address] [phone] Laboratory test 08/03/2017 [facility] Point of Care 112 mg/dL High 70-1 [address] Glucose 00 [place] [address] [phone] Laboratory test 08/03/2017 [facility] Point of Care 142 mg/dL High 70-1 [address] Glucose 00 [place] [address] [phone] Laboratory test 08/02/2017 [facility] Point of Care 85 mg/dL N 70-1 [address] Glucose 00 [place], [place] 2790978 [phone] Laboratory test 08/02/2017 [facility] Point of Care 134 mg/dL High 70-1 [address] Glucose 00 [place], [place] 1390351 [phone] Laboratory test 07/30/2017 [facility] Point of Care 91 mg/dL N 70-1 [address] Glucose 00 [place], [place] [phone] [phone] Laboratory test 07/30/2017 [facility] Point of Care 131 mg/dL High 70-1 [address] Glucose 00 [place], [place] 4411672 [phone] Laboratory test 07/29/2017 [facility] Point of Care 167 mg/dL High 70-1 [address] Glucose 00 [place], [place] 7574200 [phone] Laboratory test 07/29/2017 [facility] Point of Care 133 mg/dL High 70-1 [address] Glucose 00 [place], [place] 2877911 [phone] Laboratory test 07/28/2017 [facility] Point of Care 98 mg/dL N 70-1 [address] Glucose 00 [place] [address] [phone] Laboratory test 07/28/2017 [facility] Point of Care 158 mg/dL High 70-1 [address] Glucose 00 [place] [address] [phone] Laboratory test 07/27/2017 [facility] Point of Care 150 mg/dL High 70-1 [address] Glucose 00 [place], [place] 8927393 [phone] Laboratory test 07/26/2017 [facility] Point of Care 123 mg/dL High 70-1 [address] Glucose 00 [place] [address] [phone] Laboratory test 07/26/2017 [facility] Point of Care 127 mg/dL High 70-1 [address] Glucose 00 [place] [address] [phone] Laboratory test 07/22/2017 [facility] Point of Care 125 mg/dL High 70-1 [address] Glucose 00 [place], [place] 2739792 [phone] Laboratory test 07/22/2017 [facility] Point of Care 123 mg/dL High 70-1 [address] Glucose 00 [place] [address] [phone] Laboratory test 07/21/2017 [facility] Point of Care 130 mg/dL High 70-1 [address] Glucose 00 [place] [address] [phone] Laboratory test 07/21/2017 [facility] Point of Care 118 mg/dL High 70-1 [address] Glucose 00 [place] [address] [phone] Laboratory test 07/21/2017 [facility] Point of Care 119 mg/dL High 70-1 [address] Glucose 00 [place] [address] [phone] Laboratory test 07/20/2017 [facility] Point of Care 151 mg/dL High 70-1 [address] Glucose 00 [place] [address] [phone] Laboratory test 07/20/2017 [facility] Point of Care 114 mg/dL High 70-1 [address] Glucose 00 [place] [address] [phone] Laboratory test 07/19/2017 [facility] Point of Care 137 mg/dL High 70-1 [address] Glucose 00 [place] [address] [phone] Laboratory test 07/19/2017 [facility] Point of Care 100 mg/dL N 70-1 [address] Glucose 00 [place] [address] [phone] Laboratory test 07/15/2017 [facility] Point of Care 132 mg/dL High 70-1 [address] Glucose 00 [place] [address] [phone] Laboratory test 07/15/2017 [facility] Point of Care 108 mg/dL High 70-1 [address] Glucose 00 [place] [address] [phone] Laboratory test 07/15/2017 [facility] Point of Care 121 mg/dL High 70-1 [address] Glucose 00 [place] [address] [phone] Laboratory test 07/14/2017 [facility] Point of Care 109 mg/dL High 70-1 [address] Glucose 00 [place] [address] [phone] Laboratory test 07/14/2017 [facility] Point of Care 120 mg/dL High 70-1 [address] Glucose 00 [place] [address] [phone] Laboratory test 07/13/2017 [facility] Point of Care 111 mg/dL High 70-1 [address] Glucose 00 [place] [address] [phone] Laboratory test 07/13/2017 [facility] Point of Care 145 mg/dL High 70-1 [address] Glucose 00 [place] [address] [phone] Laboratory test 07/12/2017 [facility] Point of Care 117 mg/dL High 70-1 [address] Glucose 00 [place] [address] [phone] Laboratory test 07/12/2017 [facility] Point of Care 108 mg/dL High 70-1 [address] Glucose 00 [place] [address] [phone] Laboratory test 07/12/2017 [facility] Point of Care 134 mg/dL High 70-1 [address] Glucose 00 [place] [address] [phone] Laboratory test 07/05/2017 [facility] Point of Care 99 mg/dL N 70-1 [address] Glucose 00 [place] [address] [phone] Laboratory test 07/05/2017 [facility] Point of Care 129 mg/dL High 70-1 [address] Glucose 00 [place] [address] [phone] Laboratory test 07/02/2017 [facility] Point of Care 172 mg/dL High 70-1 [address] Glucose 00 [place] [address] [phone] Laboratory test 07/02/2017 [facility] Point of Care 99 mg/dL N 70-1 [address] Glucose 00 [place] [address] [phone] Laboratory test 07/01/2017 [facility] Point of Care 151 mg/dL High 70-1 [address] Glucose 00 [place], [place] 1815719 [phone] Laboratory test 07/01/2017 [facility] Point of Care 105 mg/dL High 70-1 [address] Glucose 00 [place], [place] [address]84368 [phone] Laboratory test 06/30/2017 [facility] Point of Care 153 mg/dL High 70-1 [address] Glucose 00 [place] [address] [phone] Laboratory test 06/30/2017 [facility] Point of Care 123 mg/dL High 70-1 [address] Glucose 00 [place] [address] [phone] Laboratory test 06/29/2017 [facility] Point of Care 122 mg/dL High 70-1 [address] Glucose 00 [place] [address] [phone] Laboratory test 06/29/2017 [facility] Point of Care 100 mg/dL N 70-1 [address] Glucose 00 [place] [address] [phone] Laboratory test 06/29/2017 [facility] Point of Care 140 mg/dL High 70-1 [address] Glucose 00 [place] [address] [phone] Laboratory test 06/28/2017 [facility] Point of Care 160 mg/dL High 70-1 [address] Glucose 00 [place] [address] [phone] Laboratory test 06/28/2017 [facility] Point of Care 115 mg/dL High 70-1 [address] Glucose 00 [place] [address] [phone] Laboratory test 06/25/2017 [facility] Point of Care 161 mg/dL High 70-1 [address] Glucose 00 [place] [address] [phone] Laboratory test 06/25/2017 [facility] Point of Care 120 mg/dL High 70-1 [address] Glucose 00 [place] [address] [phone] Laboratory test 06/24/2017 [facility] Point of Care 105 mg/dL High 70-1 [address] Glucose 00 [place], [place] [address]6517 [phone] Laboratory test 06/24/2017 [facility] Point of Care 145 mg/dL High 70-1 [address] Glucose 00 [place] [address] [phone] Laboratory test 06/23/2017 [facility] Point of Care 117 mg/dL High 70-1 [address] Glucose 00 [place] [address] [phone] Laboratory test 06/23/2017 [facility] Point of Care 123 mg/dL High 70-1 [address] Glucose 00 [place] [address] [phone] Laboratory test 05/31/2017 [facility] Prealbumin 14 mg/dL Low 18-[address] 8 [place] [address] [phone] Vitamin B12 477 pg/mL N 180-014 152 Vitamin D Total 25(Oh) 34.8 ng/mL N 20-50 Laboratory test 04/30/2017 [facility] Point of Care 104 mg/dL High 70-100 [address] [place] [address] [phone] Laboratory test 04/13/2017 [facility] Surgical SEE RESULT [address] [place] [address] [phone] Comp Metabolic 04/11/2017 [facility] Sodium 127 mmol/L Low 133 -[address] [place] [address] [phone] Potassium 3.7 mmol/L N 3.5-5.0 Chloride 91 [...] Egfr 102.3 >60 155 Laboratory test 04/11/2017 [facility] Lactic Acid 2.2 mmol/L High 0.5-2.0 [address] [place], [place] [address]63 [phone] Inr/Protime 04/11/2017 [facility] Inr 1.36 High 0.77-1.[address] [place] [address] [phone] Laboratory test 04/11/2017 [facility] Partial 40.0 High 26.0- 36.[address] [address] Time PTT [phone] Urinalysis 04/11/2017 [facility] Urine Color Yellow Profile [address] [place] [address] [phone] Urine Appearance Clear Urine Specific [place] 1.005 Low 1.010-1.030 Urine pH 6.0 N 5-9 Urine Urobilinogen Negative Negative Urine Ketones Trace Abnormal Negative Urine Protein Negative Negative Urine Leukocytes Negative Negative Urine Blood Negative Negative Urine Nitrite Negative Negative Urine Bilirubin Negative Negative Urine Glucose Negative Negative CBC Auto Diff 04/11/2017 [facility] White Blood 9.8 10^3/uL N 3.5-10.[address] [place] [address] [phone] Red Blood Count 4.10 10^6/uL N 4.0-5.4 [...] Blood Cells % 0 Laboratory test 04/11/2017 [facility] Blood Culture SEE RESULT [address] [place] [address] [phone] Laboratory test 01/25/2017 [facility] Surgical SEE RESULT [address] [place] [address] [phone] Laboratory test 07/16/2016 [facility] Hemoglobin A1c 5.5 5-7 finding Urine Microalbumin 07/15/2016 [facility] Urine 46.19 mg/dL N Random [address] [place] [address] [phone] Ur Microalbumin (mg/L) 61.9 mg/L N Urine Microalbumin/Creatinine 134.0 ug/mg High <31 Comp Metabolic Panel 07/15/2016 [facility] Sodium 138 mmol/L N 133-[address] [place] [address] [phone] Potassium 4.0 mmol/L N 3.5-5.0 Chloride 102 [...] 107.9 N >60 160 Lipid Profile 07/15/2016 [facility] Triglycerides 159 mg/dL N 161 (Trig/Chol/HDL) [address] [place] [address] [phone] Cholesterol 147 mg/dL N 162 HDL Cholesterol 42.9 mg/dL N 163 LDL Cholesterol 72 mg/dL N 164 Laboratory test 02/26/2016 [facility] Hemoglobin A1c 5.8 5-7 finding Laboratory test 12/27/2015 [facility] MRSA/S. aureus SEE RESULT 165, [address] [place] [place] [address] [phone] Wound 12/27/2015 [facility] Wound/Misc SEE RESULT 167 Culture/Sensi [address] Culture[place] [address] [phone] Laboratory test 05/28/2015 [facility] Hemoglobin A1c 5.5 5-7 finding [...] ug/mg N <31 173 Laboratory test 09/25/2014 [facility] Hemoglobin A1c 5.4 5-7 finding CBC Auto Diff 09/24/2014 [facility] White Blood Count 8.2 N 4.8-10.[address] 10^3/[place] [address] [phone] Red Blood Count 4.81 10^6/uL N 4.0-5.4 [...] % 0.1 N Comp Metabolic Panel 09/24/2014 [facility] Sodium 138 mmol/L N 133-[address] [place] [address] [phone] Potassium 4.9 mmol/L N 3.5-5.0 Chloride 98 [...] 100.8 N >60 174 Urine Microalbumin 10/10/2013 [facility] Ur Microalbumin 5.0 mg/ dL N <30 [address] (mg/L) [place] [address] [phone] Urine Creatinine 156.07 mg/dL N Urine Microalbumin/Creatinine 3.2 N Less Than 31 Comp Metabolic Panel 10/05/2013 [facility] Sodium 140 mmol/L N 133-145 176 [address] [place] [address] [phone] Potassium 3.9 mmol/L N 3.7-5.6 Chloride 104 [...] 103.6 N >60 177 Lipid Profile 10/05/2013 [facility] Triglycerides 133 mg/dL N 178 (Trig/Chol/HDL) [address] [place] [address] [phone] Cholesterol 123 mg/dL N 179 HDL Cholesterol 29.4 mg/dL N 180 LDL Cholesterol 67 mg/dL N 181 Laboratory 10/05/2013 [facility] Hepatitis C Nonreactive N Nonreactive [address] [facility] [place] [place] [address] [phone] Laboratory 10/05/2013 [facility] Hemoglobin 5.2 % N Less than 6.0 [address] [facility] [place] [address] [phone] CBC Auto Diff 10/05/2013 [facility] White Blood 7.2 10^3/uL N 4.8-10.[address] [facility] [place] [address] [phone] Red Blood Count 4.63 10^6/uL N 4.0-5.4 [...] Cells % 0.1 N Laboratory test 02/06/2013 [facility] Hemoglobin A1c 5.0 5-7 finding Wound Culture/Sensi 06/28/2012 [facility] Wound/Misc (SEE NOTE) [address] [place] [place] [address] [phone] Urine Microalbumin 03/31/2012 [facility] Ur Microalbumin 4.0 mg/ L [address] (Mg/L) [place] [address] [phone] Urine Creatinine 90.6 mg/dL Urine Microalbumin/Creatinine 4.4 UG/MG Less Than 31 Laboratory test 03/31/2012 [facility] Hemoglobin A1c 5.6 5-7 finding Laboratory test 03/30/2012 [facility] Creatine Kinase 114 U/L 0-[address] [place] [address] [phone] Liver Function Panel 03/30/2012 [facility] Total Protein 6.6 g/ dL 6.2-8.[address] [place] [address] [phone] Albumin 3.7 g/dL 3.2-5.2 Globulin 2.9 g/dL 2-4 Albumin/Globulin Ratio 1.3 1-3 Total Bilirubin 0.9 mg/dL 0.4-1.5 Direct Bilirubin 0.1 mg/dL 0.1-0.5 Indirect Bilirubin 0.8 mg/dL 0.3-1.0 Alkaline Phosphatase 142 U/L High 30-110 Alt 18 U/L 14-54 Ast 22 U/L 12-42 Laboratory test 12/10/2011 [facility] Hemoglobin A1c 7.1 High 5-7 finding Lipid Profile 12/09/2011 [facility] Triglyceride 161 mg/dL 40 -200 (Trig/Chol/HDL) [address] [place] [address] [phone] Cholesterol 169 mg/dL Less Than 200 186 High Density Lipoprotein 34 mg/dL Low 40-60 187 Cholesterol/HDL Ratio 4.97 AVERAGE 1-4.97 Low Density Lipoprotein 103 mg/dL High Less Than 100 188 Basic Metabolic Panel 12/09/2011 [facility] Sodium 139 mmol/L 135-145 [address] [place] [address] [phone] Potassium 4.0 mmol/L 3.5-5.0 Chloride 104 mmol/L 101-111 Co2 (Carbon Dioxide) 31.0 mmol/L 22-32 Anion Gap 4.0 mmol/L 2-11 189 Glucose 134 mg/dL High 70-100 BUN 11 mg/dL 6-24 Creatinine 1.0 mg/dL 0.50-1.40 One Over Creatinine 1.00 BUN/Creatinine Ratio 11.0 8-20 Calcium 8.5 mg/dL 8.1-9.9 eGFR Non- 75.5 > 60 eGFR 97.1 > 60 190 Laboratory test 12/09/2011 [facility] PSA 1.01 NG/ML 0-[address] [place] [phone] Culture And 03/07/2011 [facility] M [address] [place] [address] ---- <[place] [address] NOTE> [phone] Culture And 03/07/2011 [facility] M [address] [place] [address] ---- <[place] [address] NOTE> [phone] Culture And 03/07/2011 [facility] M [address] ---- <[place] [address] NOTE> [phone] DR [facility] 06/03/2010 [facility] TSH 3.12 MIU/ML 0.34- 5.60 Panel [address] [place] [address] [phone] CMP Panel 06/03/2010 [facility] Sodium 139 mmol/L 135-145 [address] [place] [address] [phone] Potassium 3.8 mmol/L 3.5-5.0 Chloride 103 mmol/L [...] 110.0 > 60 197 Lipid Panel 06/03/2010 [facility] Triglyceride 125 mg/dL 40- 200 [address] [place] [address] [phone] Cholesterol 233 mg/dL High Less Than 200 198 High Density Lipoprotein 37 mg/dL Low 40-60 199 Cholesterol/HDL Ratio 6.30 AVERAGE High 1-4.97 Low Density Lipoprotein 171 mg/dL High Less Than 100 200 CBC W/Electronic 06/03/2010 [facility] White Blood 7.6 CUMM 4.8-10.[address] [place] [address] [phone] Red Cell Count 4.72 CUMM 4.6-6.2 Hemoglobin 15.5 g/dL 14.0-18.0 Hematocrit 46 % 42-52 Mean Corpuscular Volume 97 um3 High 80-94 Mean Corpuscular Hemoglob 33 pg High 27-31 Mean Corpuscular HGB Cone 34 g/dL 32-36 Redcell Distribution WDTH 14 % 10.5-15 Platelet Count 181 CUMM 150-450 Mean Platelet Volume 9.9 um3 7.4-10.4 201 Manual Differential 06/03/2010 [facility] Polysegmented 55 % 38-[address] [facility] [place] [address] [phone] Lymphocyte 21 % Low 25-47 Monocyte 16 % High 0-13 Eosinophil 6 % 0-6 Basophil 1 % 0-2 Atypical Lymph 1 % 0-6 Absolute Neutrophil Count 4.1 Anisocytosis SLIGHT Macrocytosis SLIGHT Platelet Evaluation LARGE Laboratory test 06/03/2010 [facility] PSA Screening 0.43 NG/ML 0-4 202 finding [address] [place] [address] [phone] Surgical 11/23/2008 [facility] Surgical 203 Pathology 101 [facility] Pathology ------ [place] [address] <SEE NOTE> [phone] Comp Metabolic 10/17/2008 [facility] Sodium 138 mmol/L 135- 145 Panel [address] [place] [address] [phone] Potassium 4.2 mmol/L 3.5-5.0 Chloride 102 mmol/L [...] 126.8 > 60 208 Lipid Profile 10/17/2008 [facility] Triglyceride 130 mg/dL 40 -200 (Trig/Chol/HDL) [address] [place] [address] [phone] Cholesterol 234 mg/dL High Less Than 200 209 High Density Lipoprotein 41 mg/dL 40-60 210 Cholesterol/HDL Ratio 5.71 AVERAGE High 1-4.97 Low Density Lipoprotein 167 mg/dL High Less Than 100 211 Liver Function 10/17/2008 [facility] Bilirubin Direct 0.1 mg/dL 0.1-0.[address] [place] [address] [phone] Indirect Bilirubin 0.6 mg/dL 0.1-0.75 Laboratory test 10/17/2008 [facility] Hemoglobin A1c 5.0 % < 6.[address] [place] [address] [phone] Comp Metabolic 08/07/2008 [facility] Sodium 144 135-[address] mmol/[place] [address] [phone] Potassium 4.5 mmol/L 3.5-5.0 Chloride 108 mmol/L [...] High 12-42 Iron & Iron Binding 08/07/2008 [facility] Iron Total 77 g/dL 45-[address] [place] [address] [phone] Unsaturated Iron Binding 146 g/dL Total Iron Binding Capacity 223 g/dL Low 250-450 % Iron Saturation 35 % 15-55 Laboratory test 08/07/2008 [facility] Vitamin B12 1018 pg/mL High 180-[address] [place] [address] [phone] Folic Acid 14.4 NG/ML 2-16 Alcohol < 10.0 mg/dL None Detected 216 Hepatitis B Surface Ag NEGATIVE Negative Hepatitis B Core Igm NEGATIVE Negative Hepatitis A AB Igm NEGATIVE Negative Hepatitis C Antibody NEGATIVE Negative CBC With 07/25/2008 [facility] White Blood 7.2 CUMM 4.8-10.8 Electronic Diff [address] [place] [address] [phone] Red Cell Count 4.70 CUMM 4.6-6.2 Hemoglobin [...] Abs Basophils 0.1 0-0.2 217 P33S 07/25/2008 [facility] Sodium 134 mmol/L Low 135-[address] [place] [address] [phone] Potassium 4.4 mmol/L 3.5-5.0 Chloride 96 mmol/L [...] High 12-42 222 Laboratory test finding 07/25/2008 [facility] Lipase 46 U/L 22-51 [address] [place] [address] [phone] Troponin-I (TnI) 0.04 NG/ML 0-0.06 223 Laboratory test 03/12/2008 [facility] PSA,Diagnostic 0.38 NG/ML 0-4 224 finding [address] [place] [address] [phone] Comp Metabolic 12/29/2007 [facility] Sodium 140 mmol/L 135- 145 225 Panel [address] [place] [address] [phone] Potassium 5.2 mmol/L High 3.5-5.0 Chloride 105 [...] 35 U/L 12-42 Basic Metabolic Panel 12/06/2007 [facility] Sodium 138 mmol/L 135-145 [address] [place] [address] [phone] Potassium 4.3 mmol/L 3.5-5.0 Chloride 101 mmol/L 101-111 Co2 (Carbon Dioxide) 33.0 mmol/L High 22-32 Anion Gap 4.0 mmol/L 2-11 229 Glucose 87 mg/dL 70-100 230 BUN 22 mg/dL 6-24 Creatinine 1.0 mg/dL 0.5-1.4 One Over Creatinine 1.00 BUN/Creatinine Ratio 22.0 High 8-20 Calcium 9.1 mg/dL 8.1-9.9 231 Liver Function 12/06/2007 [facility] Total Protein 6.3 GM/DL 6.2-8.1 Panel [address] [place] [address] [phone] Albumin 3.5 GM/DL Low 3.6-5.4 Globulin 2.8 GM/DL 2-4 Albumin/Globulin Ratio 1.3 1-3 Bilirubin Total 0.8 mg/dL 0.4-1.5 Bilirubin Direct 0.2 mg/dL 0.1-0.5 Indirect Bilirubin 0.6 mg/dL 0.1-0.75 Alkaline Phosphatase 104 U/L 39-117 Alt (SGPT) 80 U/L High 17-63 Ast (Sgot) 72 U/L High 12-42 Laboratory test finding 12/06/2007 [facility] GGTP 122 U/L High 7-50 [address] [place] [address] [phone] Vitamin B12 341 pg/mL 180-914 Folic Acid 11.1 NG/ML 2-16 Alcohol < 10.0 mg/dL None Detected 232 Thyroxine Free 0.68 NG/ML 0.61-1.24 233 TSH 2.54 MIU/ML 0.34-5.60 Hemoglobin A1c 5.3 % <6.0 234 Protime 12/01/2007 [facility] [facility] Protime 11.7 10.9-13.3 [address] [place] [address] [phone] Inr 0.93 235 Laboratory test 12/01/2007 [facility] PTT (Aptt) 22.6 20.1- 28.2 [address] [place] [address] [phone] CBC With 12/01/2007 [facility] White Blood 9.9 CUMM 4.8-10.8 Electronic Diff [address] [place] [address] [phone] Red Cell Count 4.40 CUMM Low 4.6-6.2 [...] Abs Basophils 0 0-0.2 237 P33S 12/01/2007 [facility] Sodium 140 mmol/L 135-[address] [place] [address] [phone] Potassium 3.9 mmol/L 3.5-5.0 Chloride 99 mmol/L [...] 83 U/L High 12-42 Laboratory test 12/01/2007 [facility] Troponin-I 0.02 NG/ML 0 -0.06 [address] (TnI) [place] [address] [phone] CBC With 10/19/2007 [facility] White Blood 6.8 CUMM 4.8-10.8 Electronic Diff [address] [place] [address] [phone] Red Cell Count 3.72 CUMM Low 4.6-6.2 [...] 0-0.6 Abs Basophils 0.2 0-0.2 DS3 10/19/2007 [facility] Amphetamines Urine NONE DETECTED None Detect [address] [place] [address] [phone] Barbituates Urine Screen NONE DETECTED None Detect Benzodiazepine Ur Screen NONE DETECTED None Detect Cannabinoid Urine Screen NONE DETECTED None Detect Cocaine Metabolites Urine NONE DETECTED None Detect Opiates Urine Screen POSITIVE Abnormal None Detect PCP Urine Screen NONE DETECTED None Detect 242 P33S 10/19/2007 [facility] Sodium 141 mmol/L 135-[address] [place] [address] [phone] Potassium 4.8 mmol/L 3.5-5.0 Chloride 108 mmol/L [...] 53 U/L High 12-42 Alcohol Stat 10/19/2007 [facility] Alcohol 374.5 High None Detected [address] mg/[place] [address] [phone] Basic Metabolic 10/07/2007 [facility] Sodium 141 mmol/L 135- [address] [place] [address] [phone] Potassium 4.2 mmol/L 3.5-5.0 Chloride 105 mmol/L 101-111 Co2 (Carbon Dioxide) 31.0 mmol/L 22-32 Anion Gap 5.0 mmol/L 2-11 247 Glucose 91 mg/dL 70-105 BUN 25 mg/dL High 6-24 Creatinine 0.9 mg/dL 0.5-1.4 One Over Creatinine 1.11 BUN/Creatinine Ratio 27.8 High 8-20 Calcium 8.9 mg/dL 8.1-9.9 248 CBC With Manual 10/07/2007 [facility] White Blood 5.8 CUMM 4.8-10.[address] [place] [address] [phone] Red Cell Count 4.10 CUMM Low 4.6-6.2 [...] Count 4.1 Macrocytosis SLIGHT CBC With 09/27/2007 [facility] White Blood 9.0 CUMM 4.8-10.8 Electronic Diff [address] [place] [address] [phone] Red Cell Count 4.34 CUMM Low 4.6-6.2 [...] 0-0.6 Abs Basophils 0.1 0-0.2 P33S 09/27/2007 [facility] Sodium 139 mmol/L 135-[address] [place] [address] [phone] Potassium 3.4 mmol/L Low 3.5-5.0 Chloride 102 [...] U/L High 12-42 CBC W/ Electronic 01/04/2007 [facility] White Blood 4.7 CUMM Low 4.8-10.[address] [place] [address] [phone] Abs Basophils 0 0-0.2 Abs Eosinophils 0.2 [...] 14 % 10.5-15 Comp Metabolic Panel 01/04/2007 [facility] One Over Creatinine 1.[address] [place] [address] [phone] Anion Gap 6.0 mmol/L 2-11 251 Albumin/Globulin [...] Creatinine 0.9 mg/dL 0.5-1.4 Lipid Profile 01/04/2007 [facility] Cholesterol/HDL 3.10 1- 4.97 (Trig/Chol/HDL) [address] [place] [address] [phone] Cholesterol 183 mg/dL Less Than 200 252 Triglyceride 153 mg/dL 40-200 High Density Lipoprotein 59 mg/dL 40-60 Low Density Lipoprotein 93 mg/dL Less Than 100 253 Laboratory test 01/04/2007 [facility] TSH 2.33 MIU/ML 0.34- 5.[address] [place] [address] [phone] PSA Screening 1.04 NG/ML 0-4 254 1 [...] [address]: Timmy Lees MD Acct: [id number] Unit: [id number] AGE: 67 Location: ICU [id number] Re12/21/17 SEX: M Status: ADM IN SPEC: [id number] JOHNNY: 12/21/[address] [facility] [address]: Ken Da Silva MD REQ: [id number] RECD: 12/21/17 STATUS: HILDA ALEXANDER DR: Ramez Akins III, MD _ SOURCE: URINE SPDESC: ORDERED: Urine Culture Procedure Result Reported Site Urine Culture Final 12/23/17- 0854 ML No growth of clinically significant organisms * ML - Main Lab . END OF REPORT DEPARTMENT OF PATHOLOGY, [address] [place] [address] Albin Mario M.D. Director [facility] # [id number] 3 [facility] Severe Sepsis and Septic Shock Management [...] [address]: Timmy Lees MD Acct: [id number] Unit: [id number] AGE: 67 Location: [place] [address] Re12/21/17 SEX: M Status: ADM IN SPEC: [id number] JOHNNY: 12/21/[address] [facility] [address]: Ken Da Silva MD REQ: [id number] RECD: 12/21/17 STATUS: [facility] DR: Ramez Mable III MD _ SOURCE: BLOOD,VENO SPDESC: ORDERED: Blood Cult Procedure Result Reported Site Aerobic Culture Bottle Final 12/26/17- 2043 ML No Growth Day 5 Anaerobic Culture Bottle Final 12/26/17- 2043 ML No Growth Day 5 * ML - Main Lab . END OF REPORT DEPARTMENT OF PATHOLOGY, [address] [place] [address] Albin Mario M.D. Director [facility] # [id number] 7 F/U 8 SEE RESULTS BELOW [id number] EPIFIX 3.5 MESH TRANSFUSED 12/10/17 0927 9 Filler In: TMI6454 10 Filler In: QOU9974 11 Filler In: NGI6636 12 Filler In: PDL0246 13 Filler In: TPL8095 14 Filler In: CAY9503 15 Filler In: WAN6328 16 Filler In: ONX0947 17 Filler In: OIQ5451 18 Filler In: CIE3191 19 Filler In: IJU6804 20 Filler In: STA3600 21 Filler In: PCV1953 22 Filler In: WAI1878 23 Filler In: YKE6828 24 Filler In: QWX4085 25 Filler In: RJF6716 26 Filler In: HBE6484 27 Filler In: OGB2188 28 Filler In: PIU1487 29 Filler In: IZA4033 30 Filler In: UXC8687 31 Filler In: CZK2159 32 Because ethnic data is not always [...] 5 Kidney failure <15 (or dialysis) 33 Filler In: ASQ5307 34 Filler In: LMD8587 35 Filler In: KAA3540 36 Filler In: ALV2677 37 Filler In: NRP4306 38 Filler In: WDS3494 39 Filler In: NAB1954 40 Filler In: BWE7074 41 Filler In: DPF3776 42 Filler In: IRC7847 43 Because ethnic data is not always [...] 5 Kidney failure <15 (or dialysis) 44 Filler In: TUX2461 45 Filler In: LNK6193 46 Filler In: ABY6500 47 Filler In: TZE8473 48 Filler In: PMM6117 49 Filler In: VBT1975 50 Filler In: MZA9355 51 Filler In: PYE1115 52 Filler In: CEG7002 53 Because ethnic data is not always [...] 5 Kidney failure <15 (or dialysis) 54 Filler In: LJP1714 55 Filler In: KYI1294 56 Filler In: DWD7336 57 Filler In: CZH7113 58 Filler In: UKC8794 59 Filler In: SBV7652 60 Filler In: UCW1781 61 Filler In: NFN4888 62 Filler In: ZFZ9827 63 Filler In: QOT5129 64 Filler In: FQZ5888 65 Because ethnic data is not always [...] 5 Kidney failure <15 (or dialysis) 66 Filler In: VKY3654 67 Filler In: SOM4630 68 Filler In: BOS2773 69 Filler In: NFW2105 70 Filler In: EJT1565 71 Filler In: JQR6751 72 Filler In: MBH3504 73 Filler In: BDS8995 74 Filler In: CPR3125 75 Filler In: WNG0728 76 Because ethnic data is not always [...] 5 Kidney failure <15 (or dialysis) 77 Filler In: AIQ1526 78 Filler In: GQU0100 79 Because ethnic data is not always [...] 5 Kidney failure <15 (or dialysis) 81 [id number] 82 SEE RESULT BELOW Name: ALBIN LUEVANO : [address]: Bryn Barnhart MD Acct: [id number] Unit: [id number] AGE: 67 Location: [facility] Re09/28/17 SEX: M Status: REG REF SPEC: [id number] JOHNNY: 09/28/17-[address] [facility] [address]: Bryn Barnhart MD REQ: [id number] RECD: 09/28/17 STATUS: COMP _ SOURCE: TOE SPDESC: ORDERED: Culture Stain COMMENTS: [id number] QUERIES: Specimen Description 4TH RIGHT TOE Procedure Result Reported Site Wound/Misc Gram Stain Final 09/29/17- 0746 ML 3+ Neutrophils 1+ Nucleated Cells 1+ Gram Positive Cocci Wound/Misc Culture Final 09/30/17- 1212 ML Organism 1 CORYNEBACTERIUM STRIATUM Quantity 2+ * ML - Main Lab . END OF REPORT DEPARTMENT OF PATHOLOGY, [address] [place] [address] Albin Mario M.D. Director [facility] # [id number] 83 Because ethnic data is not always [...] in selective patients <6.0%. Please refer to [employer] diabetic care guidelines for further information. 86 f/u 87 SEE RESULTS BELOW [id number] EPIFIX 3.5 MESH TRANSFUSED 09/17/17 1039 88 SEE RESULTS BELOW [id number] EPIFIX 3.5 MESH TRANSFUSED 09/10/17 1157 89 Filler In: BKZ9124 90 Filler In: LQH7297 91 Filler In: AWL9015 92 Filler In: SZO1761 93 Filler In: HHJ6847 94 Filler In: TOI0131 95 Filler In: DOK4575 96 Filler In: AZS5308 97 Filler In: EQZ3198 98 Filler In: IWX2599 99 Filler In: UML9847 100 Filler In: FCW4642 101 Filler In: IRG7041 102 Filler In: HIQ5164 103 Filler In: LVV0523 104 Filler In: GLY6511 105 Filler In: FTC0926 106 Filler In: KLJ4910 107 Filler In: SCF2324 108 Filler In: DAY0106 109 Filler In: JZH9149 110 Filler In: OBJ1427 111 Filler In: WOL0833 112 Filler In: PLI5343 113 Filler In: ONL3219 114 Filler In: FLG8529 115 Filler In: KLR1664 116 Filler In: FTT2945 117 HBO Protocol Filler In: AOL4913 118 Filler In: EPP3973 119 Filler In: BUL1908 120 Filler In: LEG8453 121 Filler In: GQK4647 122 Filler In: QVS6829 123 Filler In: PVX3673 124 Filler In: BNA5236 125 Filler In: NAB8394 126 Filler In: ZXW2789 127 Filler In: YUY7111 128 Filler In: OXU4639 129 Filler In: RCV5913 130 Filler In: YNI2882 131 Filler In: DHD4529 132 Filler In: QEO1604 133 Filler In: ATH4923 134 Filler In: KAS6486 135 Filler In: ZYH2455 136 Filler In: ZAU9497 137 Filler In: HDR8755 138 Filler In: PHR6501 139 Filler In: MFR9102 140 Filler In: JPF0593 141 Filler In: WCI5705 142 Filler In: CLK6365 143 Filler In: IMD0507 144 Filler In: RIJ9331 145 Filler In: VKT9320 146 Filler In: UPE9716 147 Filler In: RBN7869 148 Filler In: IOE6428 149 Filler In: IOF6143 150 Filler In: LMP3337 151 Filler In: AAG1343 152 Normal Range 180 to 914 Indeterminate Range 145 to 180 Deficient Range <145 153 Filler In: TXV6667 154 SEE RESULT BELOW Name: ALBIN LUEVANO Kandis : [address]: Janeen Maya MD Acct: [id number] Unit: [id number] AGE: 67 Location: [place] [address] Re04/11/17 Dis: 04/14/17 SEX: M Status: DIS IN SPEC: [id number] JOHNNY: 04/13/17-[address] [facility] [address]: Steffen Rojas MD REQ: [id number] RECD: 04/13/17-1313 STATUS: JASSI ALEXANDER DR: Riky Nelson MD _ ORDERED: [facility], LEVEL 4 FINAL DIAGNOSIS Left fifth toe, [...] rubbery cauterized soft tissue and bone fragment. Student Services Dean sections are submitted in cassettes A and B as follows: A-bone following decalcification and B-ulcer and soft tissue to include inked margin. MICROSCOPIC DESCRIPTION Signed (signature on file) Linh Ruvalcaba MD 12/28 1045 END OF REPORT * ML=Testing performed at Main Lab DEPARTMENT OF PATHOLOGY, [address] [place] [address] Albin Mario M.D. Director [facility] # [id number] 155 Because ethnic data is not always [...] dialysis) 156 Critical Result LACT:2.2 Called to [id number] at: 22:42:51 by:[id number] Read back by:[id number] INA Severe Sepsis and Septic Shock Management Bundle Measure requires all lactic acids initially measuring >2.0 mmol/L be repeated. 157 Please note the change in INR reference range effective 17. 158 SEE RESULT BELOW Name: LUEVANOALBIN : [address]: Janeen Maya MD Acct: [id number] Unit: [id number] AGE: 67 Location: [place] [address] Re04/11/17 Dis: 04/14/17 SEX: M Status: DIS IN SPEC: [id number] JOHNNY: 04/11/[address] [facility] [address]: David Moulton MD REQ: [id number] RECD: 04/11/17 STATUS: HILDA ALEXANDER DR: Ramez Akins III, MD _ SOURCE: BLOOD,VENO SPDESC: ORDERED: Blood Cult COMMENTS: Patient is On Antibiotics? NO Procedure Result Reported Site Aerobic Culture Bottle Final 04/16/17- 2220 ML No Growth Day 5 Anaerobic Culture Bottle Final 04/16/17- 0 ML No Growth Day 5 * ML - MAIN LAB ([facility]) . END OF REPORT * ML=Testing performed at Main Lab DEPARTMENT OF PATHOLOGY, [address] [place] [address] Albin Mario M.D. Director [facility] # [id number] 159 SEE RESULT BELOW Name: ALBIN LUEVANO : [address]: Blu Jules MD Acct: [id number] Unit: [id number] AGE: 67 Location: ENDO Re01/25/17 SEX: M Status: DEP REF SPEC: [id number] JOHNNY: 01/25/[address] [facility] [address]: Blu Jules MD REQ: [id number] RECD: 01/25/17 STATUS: JASSI ALEXANDER DR: Ramez [...] performed at Main Lab DEPARTMENT OF PATHOLOGY, [address] [place] [address] Albin Mario M.D. Director J[facility]IA # [id number] RUN DATE: 01/26/17 [facility] LAB LIVE PAGE 2 Patient: ALBIN LUEVANO [id number] (Continued) GROSS DESCRIPTION (Continued) GROSS DESCRIPTION 1. [...] performed at Main Lab DEPARTMENT OF PATHOLOGY, [address] [place] [address] Albin Mario M.D. Director [facility] # [id number] 160 Because ethnic data is not always [...] 160-189 mg/dL Very High: >189 mg/dL 165 [id number] 166 SEE RESULT BELOW Name: ALBIN LUEVANO : [address]: Jennifer Okeefe Acct: [id number] Unit: [id number] AGE: 65 Location: [facility] Re12/27/15 SEX: M Status: DEP ER SPEC: [id number] JOHNNY: 12/27/15-[address] [facility] [address]: Anthony HONG REQ: [id number] RECD: 12/28/15-1258 STATUS: HILDA ALEXANDER DR: Jennifer Brown III, MD _ SOURCE: [facility]: ORDERED: MRSA/SA SSTI, Culture Stain COMMENTS: [id number] Procedure Result Reported Site MRSA/S. aureus SSTI PCR Final 12/28/15- 1516 ML Organism 1 MRSA NEGATIVE Organism 2 S.AUREUS NEGATIVE Wound/Misc Gram Stain Final 12/28/15- 1342 ML 3+ Epithelial Cells 2+ Neutrophils 3+ Gram Positive Cocci 1+ Gram Positive Bacilli Wound/Misc Culture Final 12/30/15- 1202 ML Organism 1 NORMAL ARCENIO * ML - MAIN LAB ([facility]) . END OF REPORT * ML=Testing performed at Main Lab DEPARTMENT OF PATHOLOGY, [address] [place] [address] Albin Mario M.D. Director [facility] # [id number] 167 SEE RESULT BELOW Name: ALBIN LUEVANO : [address]: Jennifer Okeefe Acct: [id number] Unit: [id number] AGE: 65 Location: [facility] Re12/27/15 SEX: M Status: DEP ER SPEC: [id number] JOHNNY: [address]: Anthony HONG REQ: [id number] RECD: 12/28/15 STATUS: RES [facility] : Jennifer Brown III, MD _ SOURCE: [facility]: ORDERED: MRSA/SA SSTI, Culture Stain COMMENTS: [id number] Procedure Result Reported Site MRSA/S. aureus SSTI PCR PENDING Wound/Misc Gram Stain Final 12/28/15- 1342 ML 3+ Epithelial Cells 2+ Neutrophils 3+ Gram Positive Cocci 1+ Gram Positive Bacilli Wound/Misc Culture PENDING * ML - MAIN LAB ([facility]) . END OF REPORT * ML=Testing performed at Main Lab DEPARTMENT OF PATHOLOGY, [address] [place] [address] Albin Mario M.D. Director [facility] # [id number] 168 >100 to <200 pg/mL: likely compensated [...] and in selective patients <6.0%.Please refer to [employer] Diabetic care guidelines for further information. 184 RUN DATE: 07/01/12 [facility] LAB LIVE PAGE 1 RUN TIME: [address] [place] [address] Specimen Inquiry Name: ALBIN LUEVANO : [address]: Amanad Davenport MD Acct: [id number] Unit: [id number] AGE: 62 Location: [facility] Re06/28/12 SEX: M Status: DEP ER SPEC: [id number] JOHNNY: 06/28/12-[address] [facility] [address]: Amanda Davenport MD REQ: [id number] RECD: 06/29/12-1037 STATUS: HILDA ALEXANDER DR: Ramez Akins III, MD _ SOURCE: LEG,LEFT SPDESC: ORDERED: Culture Stain Procedure Result Verified Site Wound/Misc Gram Stain Final 06/29/12- 1204 ML 2+ Polys 1+ Epithelial Cells 2+ Gram Positive Cocci Wound/Misc Culture Final 07/01/12- 942 ML Organism 1 STAPHYLOCOCCUS AUREUS Quantity 3+ [...] at Main Lab DEPARTMENT OF PATHOLOGY, [facility] [place], [place] [address] Albin Mario M.D. Director [facility] Permit #[id number] RUN DATE: 07/01/12 [facility] LAB LIVE PAGE 2 RUN TIME: 942 [facility] [place] [place] [address] [place], [place] [address] Specimen Inquiry Patient: ALBIN LUEVANO [id number] (Continued) Specimen: [id number] Collected: 06/28/12-1749 Received: 06/29/12-1038 (Continued) Procedure Result Verified Site Wound/Misc Culture Final (continued) * These antibiotics are not available in the [facility] Formulary Contact the Microbiology Department for any additional antibiotic reporting. END OF REPORT * ML=Testing performed at Main Lab DEPARTMENT OF PATHOLOGY, [address] [place] [address] Albin Mario M.D. Director [facility] Permit #[id number] 185 Microalbuminuria in a random sample is [...] LEVELS OF PSA MEASURED USING THE [employer] Od[employer] ACCESS HYBRITECH IMMUNOASSAY SHOULD NOT BE INTERPRETED ABSOLUTE EVIDENCE OF THE PRESENCE OR ABSENCE OF DISEASE. THE PSA VALUE SHOULD BE USED IN CONJUNCTION WITH OTHER PERTINENT CLINICAL DIAGNOSTIC PROCEDURES. The values obtained with different assay methods or kits cannot be used interchangeably. 192 RUN DATE: 03/09/11 [facility] NMI LIVE PAGE 1 RUN TIME: 1101 Specimen Inquiry RUN USER: INTERFACE Name: ALBIN LUEVANO Status: DEP CLI Re03/07/11 Age/Sex: 61/M Unit#: [id number] Location: [facility] : 48 SPEC #: [id number] JOHNNY: 03/07/11 STATUS: RES REQ #: [id number] RECD: 03/08/11-[address]: Nayely Ortiz MD SOURCE: WOUND ENTR: 03/08/11-[address]: Mable PALMA MD, [facility]z [facility] TO[facility],RIGHT ORDERED: CULT SENS/GS ACT WKST: B 03/09/11 #1 Procedure Result Verified Site > CULTURE SENSITIVITY Preliminary 03/09/11- 1101 ML Organism 1 STAPHYLOCOCCUS AUREUS QUANTITY MANY Organism 2 PSEUDOMONAS SPECIES QUANTITY MODERATE > GRAM STAIN SMEAR Final 03/08/11- 1521 ML POLYS MODERATE SMEAR: MOD GRAM POSITIVE COCCI MOD GRAM NEGATIVE BACILLI - [facility] Permit #[id number] [address] [place] [address] DEPARTMENT OF PATHOLOGY, [address] [place] [address] [facility] Permit #[id number] Rex Xiong M.D. Target Worker 193 RUN DATE: 03/10/11 [facility] NMI LIVE PAGE 1 RUN TIME: 924 Specimen Inquiry RUN USER: INTERFACE Name: ALBIN LUEVANO Status: DEP CLI Re03/07/11 Age/Sex: 61/M Unit#: [id number] Location: : 48 SPEC #: [id number] JOHNNY: 03/07/11 STATUS: RES REQ #: [id number] RECD: 03/08/11-[address]: Angel BADILLO,Nayely Chávez SOURCE: WOUND ENTR: 03/08/11-[address]: Mable PALMA MD, Ramez [facility]: TOE,RIGHT ORDERED: CULT SENS/GS ACT WKST: [...] 4 IMIPENEM S <=1 DEPARTMENT OF PATHOLOGY, [address] [place] [address] [facility] Permit #[id number] Rex Xiong M.D. Target Worker RUN DATE: 03/10/11 [facility] NMI LIVE PAGE 2 RUN TIME: 924 Specimen Inquiry RUN USER: INTERFACE Name: ALBIN LUEVANO Status: ANN MARIE CLI Re03/07/11 Age/Sex: 61/M Unit#: [id number] Location: [facility] : 48 -- -- CONTINU ED Procedure Result Verified Site CULTURE SENSITIVITY Preliminary (continued) - +These results are deduced according to CLSI guidelines as they are related to tested antimicrobials with almost identical spectrum of activity. *These antibiotics are not available in the [facility] Formulary. Contact the Microbiology Department for any additional antibiotic reporting. *These antibiotics are not available in the [facility] Formulary. Contact the Microbiology Department for any additional antibiotic reporting. > GRAM STAIN SMEAR Final 03/08/11- 1521 ML POLYS MODERATE SMEAR: MOD GRAM POSITIVE COCCI MOD GRAM NEGATIVE BACILLI - [facility] Permit #[id number] [address] [place] [address] DEPARTMENT OF PATHOLOGY, [address] [place] [address] [facility] Permit #[id number] Rex Xiong M.D. Target Worker 194 RUN DATE: 03/10/11 [facility] NMI LIVE PAGE 1 RUN TIME: 8216 Specimen Inquiry RUN USER: INTERFACE Name: ALBIN LUEVANO Status: DEP CLI Re/26/11 Age/Sex: 61/M Unit#: [id number] Location: : 48 SPEC #: [id number] JOHNNY: 03/07/11 STATUS: RES REQ #: [id number] RECD: 03/08/[address] [facility] [address]: Nayely Ortiz MD SOURCE: WOUND ENTR: 03/08/111146 [facility] DR: Mable PALMA MD, [facility]: TOE,RIGHT ORDERED: CULT SENS/GS Procedure Result Verified [...] 4 IMIPENEM S <=1 DEPARTMENT OF PATHOLOGY, [address] [place] [address] [facility] Permit #[id number] Rex Xiong M.D. Target Worker RUN DATE: 03/10/11 [facility] NMI LIVE PAGE 2 RUN TIME: 1439 Specimen Inquiry RUN USER: INTERFACE Name: ALBIN LUEVANO Status: ANN MARIE CLI Re03/07/11 Age/Sex: 61/M Unit#: [id number] Location: : 48 -- -- CONTINU ED Procedure Result Verified Site CULTURE SENSITIVITY Preliminary (continued) - +These results are deduced according to CLSI guidelines as they are related to tested antimicrobials with almost identical spectrum of activity. *These antibiotics are not available in the [facility] Formulary. Contact the Microbiology Department for any additional antibiotic reporting. *These antibiotics are not available in the [facility] Formulary. Contact the Microbiology Department for any additional antibiotic reporting. > GRAM STAIN SMEAR Final 03/08/11- 1521 ML POLYS MODERATE SMEAR: MOD GRAM POSITIVE COCCI MOD GRAM NEGATIVE BACILLI ML - [facility] Permit #[id number] [facility] [place] [facility] [place] [address] [facility] [address] DEPARTMENT OF PATHOLOGY, [facility] [place] [place], [place] [address] [facility] Permit #[id number] Albin Mario M.D. Director Mayra Pan M.D. Target Worker 195 Anion gap measurement may be of limited value in the presence of any alkalosis, especially in a combined acid base disorder. . 196 A metabolite of Naproxen, O-desmethylnaproxen, has been shown to interfere with the [place] method for measuring total bilirubin. Samples from [...] LEVELS OF PSA MEASURED USING THE [employer] ACCESS HYBRITECH IMMUNOASSAY SHOULD NOT BE INTERPRETED ABSOLUTE EVIDENCE OF THE PRESENCE OR ABSENCE OF DISEASE. THE PSA VALUE SHOULD BE USED IN CONJUNCTION WITH OTHER PERTINENT CLINICAL DIAGNOSTIC PROCEDURES. A PSA value in the range of 0.1 to 0.6 ng/ml is indeterminate if being used as an indicator of recurrent or residual disease. . 203 ----- RUN DATE: 11/27/08 [facility] NMI LIVE PAGE 1 RUN TIME: 1407 Specimen Inquiry RUN USER: INTERFACE -- [id number] Status: REG REF Re11/23/08 Age/Sex: 58/M Unit#: [id number] Location: [address] [place] [address]. : 46 -- Specimen: [id number] Spec Date: 11/23/08 [facility] Dr: Varun Mccarty MD Spec Type: SURGICAL [...] 11/27/08 1407 -- -- DEPARTMENT OF PATHOLOGY, [address] [place] [address] [facility] Permit #[id number] Albin Mario M.D. Director Mayra Pan M.D. Photograph Inspector Dir екатерина -- 204 Anion gap measurement may be of limited value in the presence of any alkalosis, especially in a combined acid base disorder. . 205 Note change in reference range as of 12/01/07. The change was based on recommendations from the [employer]. 206 Please note change in reference range effective 07 . 207 A metabolite of Naproxen, O-desmethylnaproxen, has been shown to interfere with the [place] method for measuring total bilirubin. Samples from [...] IN SELECTIVE PATIENTS <6.0%. PLEASE REFER TO [employer] DIABETIC CARE GUIDELINES FOR FURTHER INFORMATION. 213 Anion gap measurement may be of limited value in the presence of any alkalosis, especially in a combined acid base disorder. . 214 Note change in reference range as of 12/01/07. The change was based on recommendations from the [employer]. 215 Please note change in [...] change was based on recommendations from the [employer]. 220 Please note change in [...] <0.06 ng/ml NOT SUPPORTIVE OF DIAGNOSIS OF [place] 0.06 - 0.50 ng/ml INDETERMINATE: SUGGEST SERIAL STUDIES IF CLINICALLY INDICATED. > 0.5 ng/ml CONSISTENT WITH DIAGNOSIS OF [place] . 224 * SERUM LEVELS OF PSA MEASURED USING THE DBVu ACCESS HYBRITECH IMMUNOASSAY SHOULD NOT BE INTERPRETED [...] change was based on recommendations from the [employer]. 228 Please note change in reference range effective 07 . 229 Anion gap measurement may be of limited value in the presence of any alkalosis, especially in a combined acid base disorder. . 230 Note change in reference range as of 12/01/07. The change was based on recommendations from the [employer]. 231 Please note change in reference range effective 07 . 232 The detection limit for ETHANOL is 10.0 mg/dl . Values less than 10.0 mg/dl cannot be accurately measured. . 233 PLEASE NOTE NEW REFERENCE RANGES. 234 THERAPEUTIC TARGET FOR THE TREATMENT OF DIABETES MELLITUS PATIENTS IS <7% HBA1C, AND IN SELECTIVE PATIENTS <6.0%. PLEASE REFER TO [employer] DIABETIC CARE GUIDELINES FOR FURTHER [...] change was based on recommendations from the [employer]. 240 Please note change in reference range effective 07 . 241 New Reference Range and Interpretation effective 01/13/02 TnI (ng/ml) INTERPRETATION <0.06 ng/ml NOT SUPPORTIVE OF DIAGNOSIS OF [place] 0.06 - 0.50 ng/ml INDETERMINATE: SUGGEST SERIAL STUDIES IF CLINICALLY INDICATED. > 0.5 ng/ml CONSISTENT WITH DIAGNOSIS OF [place] . 242 THE URINE SPECIMEN WAS TESTED [...] PROCEDURES. Procedures Date Code Description Status 03/21/2018 20367 EKG Tracing & Interpretation Completed 02/06/2018 57903 Sleep Study Unattended,HRT Rate,Oxygen Sat,Resp Completed Effort/Airflow 12/22/2017 41217 ECHO Transthorasic Realtime 2D W Doppler & Color Flow Completed Hosp 12/20/2017 12839 Removal Devitalized Tissue Wound Greater Than 20 Completed Square CM 12/20/2017 30093 Removal Devitalization Tissue Wound Less Than Equal 20 Completed Square CM 12/17/2017 99024 Removal Devitalization Tissue Wound Less Than Equal 20 Completed Square CM 12/10/2017 74401 Application Skin Graft Face,Scalp,Eyelids,Mouth, Neck Completed Up To 100CM 12/03/2017 30877 Removal Devitalization Tissue Wound Less Than Equal 20 Completed Square CM 11/26/2017 32785 Hyperbaric Oxygen Therapy By Physician Completed 11/26/2017 72605 Removal Devitalization Tissue Wound Less Than Equal 20 Completed Square CM 11/25/2017 40072 Hyperbaric Oxygen Therapy By Physician Completed 11/23/2017 88301 Hyperbaric Oxygen Therapy By Physician Completed 11/23/2017 22725 Apply Total Contact Leg Cast Completed 11/18/2017 24206 Hyperbaric Oxygen Therapy By Physician Completed 11/17/2017 67797 Hyperbaric Oxygen Therapy By Physician Completed 11/16/2017 54700 Hyperbaric Oxygen Therapy By Physician Completed 11/12/2017 24552 Hyperbaric Oxygen Therapy By Physician Completed 11/12/2017 01132 Removal Devitalization Tissue Wound Less Than Equal 20 Completed Square CM 11/11/2017 90967 Hyperbaric Oxygen Therapy By Physician Completed 11/10/2017 73309 Hyperbaric Oxygen Therapy By Physician Completed 11/09/2017 90390 Hyperbaric Oxygen Therapy By Physician Completed 11/05/2017 59005 Hyperbaric Oxygen Therapy By Physician Completed 11/04/2017 73502 Hyperbaric Oxygen Therapy By Physician Completed 11/03/2017 83145 Hyperbaric Oxygen Therapy By Physician Completed 11/02/2017 11696 Hyperbaric Oxygen Therapy By Physician Completed 10/29/2017 57012 Removal Devitalization Tissue Wound Less Than Equal 20 Completed Square CM 10/28/2017 78615 Hyperbaric Oxygen Therapy By Physician Completed 10/27/2017 64450 Hyperbaric Oxygen Therapy By Physician Completed 10/26/2017 21648 Hyperbaric Oxygen Therapy By Physician Completed 10/22/2017 23651 Hyperbaric Oxygen Therapy By Physician Completed 10/22/2017 19140 Removal Devitalization Tissue Wound Less Than Equal 20 Completed Square CM 10/21/2017 77034 Hyperbaric Oxygen Therapy By Physician Completed 10/20/2017 93698 Hyperbaric Oxygen Therapy By Physician Completed 10/19/2017 06028 Hyperbaric Oxygen Therapy By Physician Completed 10/15/2017 21477 Hyperbaric Oxygen Therapy By Physician Completed 10/14/2017 22330 Hyperbaric Oxygen Therapy By Physician Completed 10/14/2017 51711 Removal Devitalization Tissue Wound Less Than Equal 20 Completed Square CM 10/12/2017 92457 Hyperbaric Oxygen Therapy By Physician Completed 10/11/2017 52108 EKG, Interpretation Only Completed 10/08/2017 72046 Apply Total Contact Leg Cast Completed 10/01/2017 29699 Apply Total Contact Leg Cast Completed 09/17/2017 66561 Application Skin Graft Face,Scalp,Eyelids,Mouth, Neck Completed Up To 100CM 09/10/2017 42655 Application Skin Substitute Graft Trunk,Arms Lets Up Completed To 100 SQ CM 08/27/2017 70890 Removal Devitalized Tissue Wound Greater Than 20 Completed Square CM 08/27/2017 57739 Removal Devitalization Tissue Wound Less Than Equal 20 Completed Square CM 08/13/2017 37199 Hyperbaric Oxygen Therapy By Physician Completed 08/12/2017 58905 Hyperbaric Oxygen Therapy By Physician Completed 08/11/2017 11188 Hyperbaric Oxygen Therapy By Physician Completed 08/06/2017 35853 Hyperbaric Oxygen Therapy By Physician Completed 08/04/2017 81601 Hyperbaric Oxygen Therapy By Physician Completed 08/03/2017 62775 Hyperbaric Oxygen Therapy By Physician Completed 08/02/2017 15343 Hyperbaric Oxygen Therapy By Physician Completed 07/30/2017 13364 Hyperbaric Oxygen Therapy By Physician Completed 07/29/2017 55180 Hyperbaric Oxygen Therapy By Physician Completed 07/28/2017 42772 Hyperbaric Oxygen Therapy By Physician Completed 07/27/2017 16859 Hyperbaric Oxygen Therapy By Physician Completed 07/23/2017 19463 Debridement Muscle/Fascia,Epidermis/Dermis/Tissue,1St Completed 20 SQ CM 07/23/2017 37029 Debridement Skin,& sq Tissue Completed 07/22/2017 90372 Hyperbaric Oxygen Therapy By Physician Completed 07/21/2017 85717 Hyperbaric Oxygen Therapy By Physician Completed 07/20/2017 09631 Hyperbaric Oxygen Therapy By Physician Completed 07/19/2017 21408 Hyperbaric Oxygen Therapy By Physician Completed 07/15/2017 71629 Hyperbaric Oxygen Therapy By Physician Completed 07/14/2017 07393 Hyperbaric Oxygen Therapy By Physician Completed 07/13/2017 50366 Hyperbaric Oxygen Therapy By Physician Completed 07/12/2017 98676 Hyperbaric Oxygen Therapy By Physician Completed 07/02/2017 97121 Hyperbaric Oxygen Therapy By Physician Completed 07/01/2017 92064 Hyperbaric Oxygen Therapy By Physician Completed 06/30/2017 33460 Hyperbaric Oxygen Therapy By Physician Completed 06/29/2017 42830 Hyperbaric Oxygen Therapy By Physician Completed 06/28/2017 17869 Hyperbaric Oxygen Therapy By Physician Completed 06/28/2017 63993 Hyperbaric Oxygen Therapy By Physician Completed 06/25/2017 73741 Hyperbaric Oxygen Therapy By Physician Completed 06/24/2017 76297 Hyperbaric Oxygen Therapy By Physician Completed 06/24/2017 37084 Removal Devitalization Tissue Wound Less Than Equal 20 Completed Square CM 06/24/2017 67672 Debridement Skin,& sq Tissue Completed 06/23/2017 46798 Hyperbaric Oxygen Therapy By Physician Completed 06/23/2017 53215 Hyperbaric Oxygen Therapy By Physician Completed 06/18/2017 91259 Debridement Skin, Subcutaneous Tissue & Muscle Completed 06/11/2017 94206 Apply Total Contact Leg Cast Completed 06/04/2017 56582 Removal Devitalization Tissue Wound Less Than Equal 20 Completed Square CM 06/04/2017 73950 Debridement Muscle/Fascia,Epidermis/Dermis/Tissue,1St Completed 20 SQ CM 06/04/2017 31286 Debridement Skin,& sq Tissue Completed 05/28/2017 99725 Debridement Completed Muscle/Fascia,Epidermis/Dermis/Tissue,Addtl 20 SQ CM 05/28/2017 77051 Debridement Skin, Subcutaneous Tissue & Muscle Completed 05/21/2017 38021 Debridement Skin, Subcutaneous Tissue & Muscle Completed 05/02/2017 48303 ECHO Transthorasic Realtime 2D W Doppler & Color Flow Completed Hosp 04/13/2017 78455 Amputation Metatarsal W/Toe Completed 03/29/2017 89407 EKG Tracing & Interpretation Completed 01/25/2017 82823496 Colonoscopy Completed 11/12/2016 64528 EKG Tracing & Interpretation Completed 04/15/2016 82241 Holter Monitor Review (24 hr)dr review & interp only Completed 04/14/2016 96391 ECG Monitor/Recording W/Visual Superimposition Completed Scanning 03/31/2016 34525 EKG Tracing & Interpretation Completed 03/23/2016 57766 Sleep Study Unattended,HRT Rate,Oxygen Sat,Resp Completed Effort/Airflow 03/23/2016 64291 ECHO Transthoracic, Real-Time 2D With Doppler And Completed Color Flow 02/26/2016 51180 EKG Tracing & Interpretation Completed 07/15/2012 [id number] Diabetic Retinal Eye Exam Completed 11/23/2008 84337970 Colonoscopy Completed 12/09/2007 44555 Treadmill Interp/Report Only Completed 12/09/2007 19499 Treadmill Interp/Report Only Completed 12/09/2007 42149 Stress Test Supervsn W/Out I/R Completed 12/06/2007 66653 EKG Tracing & Interpretation Completed 12/06/2007 50584 EKG Tracing & Interpretation Completed Encounters Type Date Location Provider Dx Diagnosis Office Visit 01/26/2018 Orthopedic Marlon Buckley, 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, left ankle E11.621 Type 2 diabetes mellitus with foot ulcer Office Visit 01/21/2018 10:15a Wound Care Steffen Rojas, 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 [facility] , FACS of left heel, stage 4 [...] w unsp severt Office Visit 01/04/2018 8:30a [facility] Cinthia M25.372 Other MD Wanda instability, left ankle 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 [place] M25.572 Pain in left Infectious Rex Barnhart ankle and Diseases joints of left foot I87.2 Venous insufficiency (chronic) (peripheral) L89.529 Pressure ulcer of left ankle, unspecified stage Office Visit 12/26/2017 [facility] I48.91 Unspecified 2:05p cecille Dockery M.D. 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 [...] Venous insufficiency (chronic) (peripheral) Office Visit 12/22/2017 [facility] D64.9 Anemia, 2:04p Asscecille salvador M.D. 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 mellitus with [place] other specified complication M86.271 Subacute osteomyelitis, right ankle and foot I10 Essential (primary) hypertension I48.91 Unspecified atrial fibrillation I87.2 Venous insufficiency (chronic) (peripheral) G47.33 Obstructive sleep apnea (adult) (pediatric) E78.00 Pure hypercholesterolemia, unspecified F41.9 Anxiety disorder, unspecified Office Visit 11/17/2017 9:15a Wound Care Dima Keller 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 Center [facility] MD Maria Ines of left heel, stage 4 M86.271 Subacute osteomyelitis, right ankle and foot Office Visit 10/26/2017 [facility] [place] M86.671 Other chronic 12:52p For Patricia Barnhart M.D. 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 L89.620 Pressure ulcer of left heel, unstageable Office Visit 09/28/2017 10:10a [facility] [place] 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 Infectious Rex Barnhart of left heel, Diseases stage 4 E11.621 Type 2 diabetes mellitus with foot ulcer M86.171 Other acute osteomyelitis, right ankle and foot E11.69 Type 2 diabetes mellitus with other specified complication Office Visit 09/22/2017 1:45p Wound Care Mayra Arita 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 Center AT [facility] MD Ger of left heel, stage 4 Office Visit 08/24/2017 1:30p Wound Care Lazaro Shah E11.621 Type 2 diabetes Center AT [facility] Rex Casarez mellitus with foot ulcer 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 of left heel, stage 4 Office Visit 08/20/2017 10:00a Wound Care Steffen Rojas 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 Center AT [facility] MD FACS of left heel, stage 4 [...] Shah E11.621 Type 2 diabetes Center AT [facility] Rex Casarez mellitus with foot ulcer 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 of left heel, stage 4 M86.172 Other acute osteomyelitis, left ankle and foot E66.01 Morbid (severe) obesity due to excess calories Office Visit 08/06/2017 11:00a Wound Care Steffen Rojas 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 Center AT [facility] MD FACS of left heel, stage 4 Office Visit 07/30/2017 11:00a Wound Care Steffen Rojas 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 Center AT [facility] MD FACS of left heel, stage 4 [...] Office Visit 07/02/2017 1:30p Wound Care Lazaro [id number] Pressure ulcer Center AT [facility] Rex Casarez of left heel, stage 4 E11.621 Type 2 diabetes mellitus with foot ulcer E66.01 Morbid (severe) obesity due to excess calories Office Visit 06/29/2017 12:45p Wound Fernando [id number] Pressure ulcer Center AT [facility] Rex Casarez of left heel, stage 4 L89.610 Pressure ulcer of right heel, unstageable E11.621 Type 2 diabetes mellitus with foot ulcer Office Visit 06/28/2017 1:30p Wound Care Aretha Oliva, T81.31xA Disruption of Center AT [facility] PAUL, RN, QUILL COLLECTOR-BC external operation (surgical) wound, NEC, init L89.622 Pressure ulcer of left heel, stage 2 S81.801A Unspecified open wound, right lower leg, initial encounter M86.172 Other acute osteomyelitis, left ankle and foot Office Visit 06/23/2017 [facility] Mayra Arita Ger, 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 2:00p AT [facility] MD of left heel, stage 4 Office Visit 05/11/2017 [facility] L89.622 Pressure ulcer 9:36a Assoc,cecille Valle NP of left heel, Hospitalists stage 2 L03.116 Cellulitis of left lower limb F10.239 Alcohol dependence with withdrawal, unspecified J96.01 Acute respiratory failure with hypoxia Office Visit 05/10/2017 [facility] L89.622 Pressure ulcer 9:33a Assoccecille NP of left heel, Hospitalists stage 2 L03.116 Cellulitis of left lower limb F10.239 Alcohol dependence with withdrawal, unspecified J96.01 Acute respiratory failure with hypoxia Office Visit 05/09/2017 9:31a [facility] [place] L89.622 Pressure ulcer Assoc,cecille Payne M.D.,FACP of left heel, Hospitalists stage 2 L03.116 Cellulitis of left lower limb F10.239 Alcohol dependence with withdrawal, unspecified Office Visit 05/08/2017 9:23a [facility] [place] L89.622 Pressure ulcer Assoc,cecille Payne M.D.,FACP of left heel, Hospitalists stage 2 J96.01 Acute respiratory failure with hypoxia L03.116 Cellulitis of left lower limb Office Visit 05/07/2017 9:22a [facility] Lydia J96.01 Acute respiratory Assoc,cecille Arguelles D.O. failure with Hospitalists hypoxia L03.116 Cellulitis of left lower limb F10.239 Alcohol dependence with withdrawal, unspecified L89.622 Pressure ulcer of left heel, stage 2 Office Visit 05/06/2017 9:21a [facility] Lydia J96.01 Acute respiratory Assoc,cecille Argeulles D.O. failure with Hospitalists hypoxia L03.116 Cellulitis of left lower limb F10.239 Alcohol dependence with withdrawal, unspecified L89.622 Pressure ulcer of left heel, stage 2 Office Visit 05/05/2017 9:19a [facility] J96.01 Acute respiratory Assoc,cecille Arguelles D.O. failure with Hospitalists hypoxia L03.116 Cellulitis of left lower limb F10.239 Alcohol dependence with withdrawal, unspecified L89.622 Pressure ulcer of left heel, stage 2 Office Visit 05/04/2017 9:17a [facility] J96.01 Acute respiratory Assoc,cecille Arguelles D.O. 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 failure with Hospitalists hypoxia L03.116 Cellulitis of left lower limb F10.239 Alcohol dependence with withdrawal, unspecified L89.622 Pressure ulcer of left heel, stage 2 Office Visit 05/02/2017 9:12a [facility] J96.01 Acute respiratory Assoc,cecille Arguelles D.O. failure with Hospitalists hypoxia L03.116 Cellulitis of left lower limb F10.239 Alcohol dependence with withdrawal, unspecified L89.622 Pressure ulcer of left heel, stage 2 Office Visit 05/01/2017 9:10a [facility] L03.116 Cellulitis of Assoc,cecille Arguelles D.O. left lower limb Hospitalists L89.622 Pressure ulcer of left heel, stage 2 F10.10 Alcohol abuse, uncomplicated I48.0 Paroxysmal atrial fibrillation Office Visit 04/30/2017 8:00a [facility] Jose R L03.116 Cellulitis of Assoc,cecille Pereira M.D. left lower limb Hospitalists L89.622 Pressure ulcer of left heel, stage 2 F10.10 Alcohol abuse, uncomplicated I48.0 Paroxysmal atrial fibrillation Office Visit [facility]12[facility] M86.172 Other acute 9:55a Assoc,cecille Gandara, LETTER OF CREDIT CLERK osteomyelitis, left Hospitalists ankle and foot L97.509 Non-pressure chronic ulcer oth prt unsp foot w unsp severity E11.621 Type 2 diabetes mellitus with foot ulcer E66.01 Morbid (severe) obesity due to excess calories Office Visit 04/12/2017 Surgical Steffen Guerrero M86.172 Other acute 7:00a [facility] MD, osteomyelitis, left FACS ankle and foot Office Visit 04/11/2017 [facility] Riky M86.172 Other acute 9:53a Assoc,cecille Stallone, osteomyelitis, left Hospitalists Rex ankle and foot L97.509 Non-pressure chronic ulcer oth prt unsp foot w unsp severity E11.621 Type 2 diabetes mellitus with foot ulcer E66.01 Morbid (severe) obesity due to excess calories Office Visit 03/29/2017 [place] Steffen Keller Z01.810 Encounter for 4:00p Cardiology Of Jose, DO preprocedural [facility] FAC cardiovascular examination I10 Essential (primary) hypertension E11.9 Type 2 diabetes mellitus without complications R60.0 Localized edema E66.8 Other obesity I48.91 Unspecified atrial fibrillation Office Visit 11/12/2016 4:00p [place] [facility] Steffen S. I48.91 Unspecified atrial Of [facility] Jose, DO fibrillation FACC I10 Essential (primary) hypertension G47.9 Sleep disorder, unspecified E11.9 Type 2 diabetes mellitus without complications Office Visit 08/10/2016 3:10p [facility] Internal Nurse Visit I10 Essential ( primary) Medicine - C hypertension [place] Office Visit 07/10/2016 4:00p [place] [facility] Steffen S. I48.91 Unspecified atrial Of Medical Representative Jose, DO fibrillation FACC G47.9 Sleep disorder, unspecified I10 Essential (primary) hypertension Office Visit 03/31/2016 4:00p [place] [facility] Steffen Keller I48.91 Unspecified atrial Of [facility] Jose, fibrillation FACC E66.8 Other obesity I10 Essential (primary) hypertension G47.9 Sleep disorder, unspecified E78.00 Pure hypercholesterolemia, unspecified Office Visit 03/04/2016 [facility] Internal Ramez Lopez I48.91 Unspecified atrial 4:00p Violetta Akins M.D. fibrillation [place] Office Visit 02/26/2016 [facility] I48.91 Unspecified atrial 9:15a Assoc,pc Abhay-Dulf fibrillation Hospitalists er, [place] E11.9 Type 2 diabetes mellitus without complications E66.01 Morbid (severe) obesity due to excess calories I10 Essential (primary) hypertension Office Visit 02/26/2016 1:00p [facility] Internal Ramez Lopez I48.91 Unspecified atrial Violetta Akins M.D. fibrillation [place] E11.9 Type 2 diabetes mellitus without complications R09.02 Hypoxemia Office Visit 10/24/2015 2:45p [facility] [place] G47.9 Sleep disorder, Sleep Services Of MD Marcel unspecified Medical Representative E66.01 Morbid (severe) obesity due to excess calories R09.02 Hypoxemia Office Visit 05/28/2015 2:40p [facility] Man Lopez E11.9 Type 2 diabetes Violetta Akins M.D. mellitus without [place] complications I10 Essential (primary) hypertension E78.0 Pure hypercholesterolemia F41.3 Other mixed anxiety disorders Z23 Encounter for immunization Office Visit 11/20/2014 3:20p [facility] Man Lopze 707.15 Ulcer Of Violetta Akins M.D. Other Part Of [place] Foot Office Visit 09/25/2014 4:00p [facility] Internal Ramez Lopez 782.3 Edema Violetta Akins M.D. [place] 250.00 Diabetes Mellitus W/O Compl Type II Or Unspec Controlled 401.1 Hypertension Benign 272.0 Hypercholesterolemia Pure 300.09 Anxiety States Other V03.82 Streptococcus Pneumoniae Vaccination Spec Other Office Visit 10/24/2013 2:00p [facility] Man Lopez 729.5 Pain In Limb Violetta Akins M.D. [place] Office Visit 02/06/2013 3:40p [facility] Internal Ramez Lopez 465.9 URI Upper Violetta Akins M.D. Respiratory [place] Infections Acute Unspec Sites 250.00 Diabetes Mellitus W/O Compl Type II Or Unspec Controlled Office Visit 06/30/2012 4:00p Medical Representative Internal Ramez Lopez 707.19 Ulcer Of Violetta Akins M.D. Other Part Of [place] Lower Limb 459.81 Venous Insufficiency (Peripheral) Unspec Office Visit 03/31/2012 1:00p Medical Representative Internal Caitlyn Karen, 250.00 Diabetes Medicine - N.P. Mellitus W/O [place] Compl Type II Or Unspec Controlled v03.82 Streptococcus Pneumoniae Vaccination Spec Other Office Visit 12/10/2011 3:30p Medical Representative Internal Caitlyn Karen, 486 Pneumonia Medicine - N.P. Organism Unspec [place] 278.01 Obesity Morbid 401.1 Hypertension Benign 272.0 Hypercholesterolemia Pure 250.00 Diabetes Mellitus W/O Compl Type II Or Unspec Controlled 790.21 Impaired Fasting Glucose Office Visit 11/19/2011 4:00p Medical Representative Internal Caitlyn Karen, 486 Pneumonia Medicine - N.P. Organism Unspec [place] 401.1 Hypertension Benign 272.0 Hypercholesterolemia Pure 278.01 Obesity Morbid Office Visit 03/03/2011 3:40p DO Not Use Medical Representative Ramez Lopez 790.21 Impaired Fasting AT Soledad Akins M.D. Glucose V04.81 Need For Prophylactic Vaccination & Inoculation/Influenza 401.1 Hypertension Benign 300.09 Anxiety States Other 272.0 Hypercholesterolemia Pure 707.15 Ulcer Of Other Part Of Foot Office Visit 01/24/2010 11:40a DO Not Use Medical Representative Ramez Lopez 401.1 Hypertension Benign AT Soledad Akins M.D. 300.09 Anxiety States Other 272.0 Hypercholesterolemia Pure V04.81 Need For Prophylactic Vaccination & Inoculation/Influenza v04.81 Need For Prophylactic Vaccination & Inoculation/Influenza Office Visit 01/02/2009 1:30p DO Not Use Medical Representative AT Ramez Lopez 707.15 Ulcer Of Other Soledad Akins M.D. Part Of Foot 401.1 Hypertension Benign 272.0 Hypercholesterolemia Pure 300.09 Anxiety States Other Office Visit 10/08/2008 2:00p [facility] AT Ramez Akins, 787.91 [facility] Rex 300.09 Anxiety States Other Office Visit 08/07/2008 3:00p [facility] Ramez E. 789.00 Pain Abdominal Assoc AT [place] Unspec Site [facility] 787.91 Diarrhea 401.1 Hypertension Benign Office Visit 04/24/2008 3:00p [facility] Ramez E. V72.83 Examination Assoc AT [facility]. Preoperative Other [facility] Spec 272.0 Hypercholesterolemia Pure 401.1 Hypertension Benign 300.09 Anxiety States Other Office Visit 12/29/2007 [facility] Ramez E. 272.0 Hypercholesterolemia Pure 2:30p Assoc AT [facility] 401.1 Hypertension Benign Office Visit 12/06/2007 [facility] Ramez E. 272.0 Hypercholesterolemia Pure 10:45a Assoc AT [facility] 786.05 Shortness Of Breath 401.1 Hypertension Benign V72.83 Examination Preoperative Other Spec Office Visit 11/07/2007 2:45p [facility] Ramez E. 401.1 Hypertension Benign Assoc AT [facility] 300.09 Anxiety States Other Office Visit 08/18/2007 [facility] Ramez E. 401.1 Hypertension Benign 3:15p Assoc AT [facility] Office Visit 07/06/2007 [facility] Ramez E. 401.1 Hypertension Benign 3:30p Assoc AT [facility] Office Visit 01/05/2007 [facility] Ramez E. 272.0 Hypercholesterolemia Pure 3:15p Assoc AT [facility] 401.1 Hypertension Benign 300.09 Anxiety States Other V04.81 Need For Prophylactic Vaccination & Inoculation/Influenza Plan of Treatment Future Appointment(s):03/23/2018 3:40 pm - Ramez Akins M.D. at [facility] Internal Medicine - [place]45/29/2019 2:15 pm - Aertha Oliva DNP, RN, QUILL COLLECTOR -BC at [facility]03/22/2018 2:45 pm - Marlon Buckley MD at [facility]..03/21/2018 - Steffen Garcia, DO FACCR60.0 Localized edemaNew Medication:Furosemide 20 mg - 1 by mouth every daySpironolactone 25 mg - Take 1/2 by mouth every dayComments:- Stop taking amlodipine- Start taking furosemide 20 mg every day with spironolactone 12.5 mg (1/2 tablet) daily. Have bleed work checked in 10 days to check on the potassium levels.Follow up:f/u 3 weeks
[2018-04-07 18:27] LABS: ABS Basophils 0.1 10^3/ul (0-0.2); ABS Eosinophils 0.1 10^3/ul (0-0.6); ABS Lymphocytes 1.5 10^3/ul (1.0-4.8); ABS Monocytes 1.4 10^3/ul (0-0.8); ABS Nucleated RBC 0 10^3/ul; Hematocrit 42 % (42-52); Hemoglobin 13.8 g/dl (14.0-18.0); Lymphocyte % 16.2 %; Mean Corpuscular HGB Conc 33 g/dl (31-36); Mean Corpuscular Hemoglobin 28 pg (27-31); Mean Corpuscular Volume 85 fL (80-94); Mean Platelet Volume 9.4 fL (7.4-10.4); Nucleated Red Blood Cells % 0; Platelet Count 201 10^3/ul (150-450); Red Blood Count 4.94 10^6/ul (4.00-5.40); Red Cell Distribution Width 21 % (10.5-15)
[2018-04-07 18:44] LABS: Albumin 3.7 g/dL (3.2-5.2); BUN/Creatinine Ratio 23.1 (8-20); C Reactive Protein 7.99 mg/L (<8.01); Calcium 9.6 mg/dL (8.6-10.3); EGFR Non-African American 70.6 (>60); Globulin 3.6 g/dL (2-4); Potassium 4.4 mmol/L (3.5-5.0); Total Bilirubin 0.5 mg/dL (0.2-1.0); Total Protein 7.3 g/dL (6.4-8.9)
[2018-04-07] MEDS ORDERED: Bacitracin OINTMENT* 0.5% 0.5 oz TUBE TOPICAL ONE (18:56)
--- NOTE | 2018-04-07 18:56 | ED ---
Lower Extremity - HPI Summary HPI Summary: 68 year old male presents with a lesion to left ankle for the past couple days. He states that his CAM boot is rubbing on the area. He has a history of diabetic ulcers. He states his sugars have been more under control. He does have a history of osteomyelitis on the foot and is follow up with the wound clinic. He is not currently on antibiotics. He did notice some drainage from the wound. Denies any pain. Has history of neuropathy due to the diabetes. No increase in swelling in his leg. No chest pain or shortness breath. No fever or fatigue. - History of Current Complaint Chief Complaint: EDExtremityLower Stated Complaint: WOUND ON ANKLE Time Seen by Provider: 04/07/18 17:41 Pain Intensity: 0 - Allergies/Home Medications Allergies/Adverse Reactions: Allergies Allergy/AdvReac Type Severity Reaction Status Date / Time Penicillins AdvReac Intermediate GI Upset Verified 04/07/18 15:05 PMH/Surg Hx/FS Hx/Imm Hx Endocrine/Hematology History: Reports: Hx Blood Transfusions - 1976 had blood transfusion, Hx Diabetes - type 2 Denies: Hx Anticoagulant Therapy, Hx Blood Disorders, Hx Bone Marrow Disease , Hx Systemic Lupus Erythematosus, Hx Sickle Cell Disease, Hx Thyroid Disease, Hx Anemia, Hx Unexplained Bleeding, Other Endocrine/Hematological Disorders Cardiovascular History: Reports: Hx Aneurysm - AAA repair, Hx Atrial Fibrillation, Hx Congestive Heart Failure, Hx Hypertension, Other Cardiovascular Problems/Disorders - A- Fib Denies: Hx Angina, Hx Angioplasty, Hx Auto Implanted Cardiovert Defib, Hx Cardiac Arrest, Hx Cardiomegaly, Hx Coronary Artery Disease, Hx Deep Vein Thrombosis, Hx Embolism, Hx Hypercholesterolemia, Hx Pacemaker/ICD, Hx Syncope, Hx Valvular Heart Disease Respiratory History: Reports: Hx Chronic Bronchitis, Hx Sleep Apnea, Other Respiratory Problems/Disorders - Acute Respiratory failure Denies: Hx Asthma, Hx Chronic Obstructive Pulmonary Disease (COPD), Hx Cystic Fibrosis, Hx Lung Cancer, Hx Pleural Effusion, Hx Pneumonia, Hx Seasonal Allergies GI History: Reports: Hx Hiatal Hernia - x3 had surgery Denies: Hx Gall Bladder Disease, Hx Gastroesophageal Reflux Disease, Hx Jaundice, Hx Obstructive Bowel, Hx Ileostomy, Hx Pyloric Stenosis, Hx Ulcer History: Reports: Hx Benign Prostatic Hyperplasia Denies: Hx Dialysis, Hx Kidney Infection, Hx Kidney Stones, Hx Renal Disease Musculoskeletal History: Reports: Hx Back Problems - low back pain occassionally , Hx Orthopedic Injury - broke right leg from knee down had surgery here 2010, Other Musculoskeletal History - 3 inguinal hernias Denies: Hx Arthritis, Hx Fibromyalgia, Hx Gout, Hx Osteoporosis, Hx Scoliosis , Hx Tendonitis Sensory History: Reports: Hx Vision Problem Denies: Hx Cataracts, Hx Contacts or Glasses, Hx Glaucoma, Hx Hearing Aid Opthamlomology History: Reports: Hx Vision Problem Denies: Hx Cataracts, Hx Contacts or Glasses, Hx Glaucoma Neurological History: Reports: Hx Nerve Disease - diabetic nueropathy Denies: Hx Dementia, Hx Developmental Delay, Hx Headaches, Hx Migraine, Hx Seizures, Hx Spinal Cord Injury, Hx Transient Ischemic Attacks (TIA), Other Neuro Impairments/Disorders Psychiatric History: Reports: Hx Anxiety, Hx Depression Denies: Hx Attention Deficit Hyperactivity Disorder, Hx Eating Disorder, Hx Panic Disorder, Hx Inpatient Treatment, Hx Schizophrenia, Hx Bipolar Disorder, Hx Suicide Attempt, Hx Substance Abuse - Cancer History Hx Chemotherapy: No - Surgical History Surgery Procedure, Year, and Place: Three inguinal hernia repairs. Tonsillectomy. Lt FOOT - 5TH TOE AMPUTATED 04/2017. Rt LEG - TIB/FIB FRACTURE - W/ PINS Hx Anesthesia Reactions: No Infectious Disease History: No Infectious Disease History: Denies: Hx Hepatitis, Hx Human Immunodeficiency Virus (HIV), Hx of Known/ Suspected MRSA, Hx Tuberculosis, History Other Infectious Disease, Traveled Outside the [place] in Last 30 Days - Family History Known Family History: Positive: Cardiac Disease - Father of [place] at age 52, Diabetes - Social History Alcohol Use: Weekly Alcohol Amount: Pt reports 1-2 bottles of wine. Substance Use Type: Reports: None Hx Tobacco Use: No Smoking Status (MU): Former Smoker Type: Cigarettes Have You Smoked in the Last Year: No Review of Systems Negative: Fever Negative: Chest Pain Negative: Shortness Of Breath Positive: Other - lesion left ankle All Other Systems Reviewed And Are Negative: Yes Physical Exam Triage Information Reviewed: Yes Vital Signs On Initial Exam: Initial Vitals Temp Pulse Resp BP Pulse Ox 98.3 F 88 20 108/79 97 04/07/18 15:01 04/07/18 15:01 04/07/18 15:01 04/07/18 15:01 04/07/18 15:01 Vital Signs Reviewed: Yes Appearance: Positive: Well-Appearing Skin: Positive: Warm, Dry, Other - 3cmby 2cm superficial ulcer seen on left ankle with serous drainage Head/Face: Positive: Normal Head/Face Inspection Eyes: Positive: Normal, Conjunctiva Clear ENT: Positive: Pharynx normal Respiratory/Lung Sounds: Positive: Clear to Auscultation, Breath Sounds Present Cardiovascular: Positive: Normal, RRR Musculoskeletal: Positive: Strength/ROM Intact - left ankle, Other - good pulses , edema to left leg Neurological: Positive: Normal Psychiatric: Positive: Normal Diagnostics - Vital Signs Vital Signs Temp Pulse Resp BP Pulse Ox 04/07/18 15:01 98.3 F 88 20 108/79 97 - Laboratory Lab Results: Lab Results 04/07/18 04/07/18 04/07/18 Range/Units 18:19 18:19 18:19 WBC 9.0 (3.5-10.8) 10^3/ul RBC 4.94 (4.00-5.40) 10^6/ul Hgb 13.8 L (14.0-18.0) g/dl Hct 42 (42-52) % MCV 85 (80-94) fL MCH 28 (27-31) pg MCHC 33 (31-36) g/dl RDW 21 H (10.5-15) % Plt Count 201 (150-450) 10^3/ul MPV 9.4 (7.4-10.4) fL Neut % (Auto) 66.3 % Lymph % (Auto) 16.2 % [place] % (Auto) 15.9 % Eos % (Auto) 1.0 % Baso % (Auto) 0.6 % Absolute Neuts (auto) 6.0 (1.5-7.7) 10^3/ul Absolute Lymphs (auto) 1.5 (1.0-4.8) 10^3/ul Absolute Monos (auto) 1.4 H (0-0.8) 10^3/ul Absolute Eos (auto) 0.1 (0-0.6) 10^3/ul Absolute Basos (auto) 0.1 (0-0.2) 10^3/ul Absolute Nucleated RBC 0 10^3/ul Nucleated RBC % 0 Sodium 137 (135-145) mmol/L Potassium 4.4 (3.5-5.0) mmol/L Chloride 102 (101-111) mmol/L Carbon Dioxide 29 (22-32) mmol/L Anion Gap 6 (2-11) mmol/L BUN 24 (6-24) mg/dL Creatinine 1.04 (0.67-1.17) mg/dL Est GFR ( Amer) 85.4 (>60) Est GFR (Non-Af Amer) 70.6 (>60) BUN/Creatinine Ratio 23.1 H (8-20) Glucose 97 (70-100) mg/dL Lactic Acid 2.0 (0.5-2.0) mmol/L Calcium 9.6 (8.6-10.3) mg/dL Total Bilirubin 0.50 (0.2-1.0) mg/dL AST 17 (13-39) U/L ALT 13 (7-52) U/L Alkaline Phosphatase 137 H (34-104) U/L C-Reactive Protein 7.99 (<8.01) mg/L Total Protein 7.3 (6.4-8.9) g/dL Albumin 3.7 (3.2-5.2) g/dL Globulin 3.6 (2-4) g/dL Albumin/Globulin Ratio 1.0 (1-3) Result Diagrams: 04/07/18 18:19 04/07/18 18:19 Lab Statement: Any lab studies that have been ordered have been reviewed, and results considered in the medical decision making process. Lower Extremity Course/Dx - Course Course Of Treatment: 68 year old male presents with a lesion to left ankle for the past couple days. He states that his CAM boot is rubbing on the area. He has a history of diabetic ulcers. He states his sugars have been more under control. He does have a history of osteomyelitis on the foot and is follow up with the wound clinic. He is not currently on antibiotics. He did notice some drainage from the wound. Denies any pain. Has history of neuropathy due to the diabetes. No increase in swelling in his leg. No chest pain or shortness breath. No fever or fatigue. On exam has a 3 cm right 2 cm superficial ulcer of the lateral malleolus of right ankle. Has some serous drainage present. Has some erythema around the wound without warmth. Neurovascularly intact. X- ray read by me as no new osteo. Labwork white blood count cell and CRP are normal. Gave bacitracin to place on the area and keep covered and protected when his using the boot. Advised not to use the boot at night. We'll place on doxycycline to prevent cellulitis and further infection. Told to follow-up with wound clinic. Patient understands agrees plan. - Diagnoses Differential Diagnosis/HQI/PQRI: Positive: Cellulitis, Other - abscess, foot ulcer, sepsis Provider Diagnoses: Foot ulcer, left Discharge - Sign-Out/Discharge Documenting (check all that apply): Patient Departure - Discharge Plan Condition: Good Disposition: HOME Prescriptions: DOXYcycline CAP(*) [DOXYcycline 100MG CAP(*)] 100 mg PO BID #19 cap Patient Education Materials: Diabetic Foot Ulcers (ED) Referrals: Ramez Akins MD [Primary Care Provider] - Additional Instructions: apply bacitrican to the area daily and keep covered during day take doxycycline daily for next 10 days Follow up with wound clinic Do not wear boot at night Return to ED if develop fever or any new or worsening symptoms - Billing Disposition and Condition Condition: GOOD Disposition: Home
[2018-04-07] MEDS ORDERED: DOXYcycline CAP(*) 100 MG PO ONE (18:57)
[2018-04-07 19:44] VITALS: BP 112/73
== END 2018-04-07 19:43 | disposition home or self-care (01) ==
LOC: ED 14:48
DX: L97.529 Non-pressure chronic ulcer of other part of left foot with unspecified severity (principal); E11.40 Type 2 diabetes mellitus with diabetic neuropathy, unspecified; Z89.422 Acquired absence of other left toe(s); Z88.0 Allergy status to penicillin; Z87.891 Personal history of nicotine dependence
CPT/HCPCS: 36415; 80053; 83605; 85025; 86140; 99282; A9270-GY

== ENCOUNTER 2018-08-22 15:18 | Emergency (ER) | payer MEDICARE, OTHER ==
[2018-08-22 15:54] VITALS: BP 105/67
--- NOTE | 2018-08-22 16:37 | UC ---
Skin Complaint HPI - HPI Summary HPI Summary: 68 -year-old male who has NIDDM however takes no medicine for that according to him. He has had his left fifth toe amputated in the past because of an infection. He wears a special boot to keep his ankle stable and straight otherwise it turns inward and is unable to walk on it. He noticed today that he had some open sores on the bottom of his foot and on the lateral part with some redness but no streaking and no drainage. - History of Current Complaint Chief Complaint: UCWounds Time Seen by Provider: 08/22/18 16:18 Stated Complaint: WOUNDS ON FOOT Hx Obtained From: Patient Onset/Duration: Gradual Onset Skin Exposure Onset/Duration: Hours Ago - Patient just noticed those areas today. Onset Severity: Mild Current Severity: Mild Pain Intensity: 3 Location: Foot (Left) Character: Redness - The left foot has some very small open wounds on the left lateral ankle left dorsum and plantar surface of the heel with callus on the heel. Aggravating Factor(s): Other - Patient wears a special supportive boot which sometimes rubs on his skin and drinking cause the sores. Alleviating Factor(s): Nothing Associated Signs & Symptoms: Positive: Negative - Patient states he normally has no sensation in his left toes and feet and therefore he is really unable to distinguish whether they are tender or not. Related History: Diabetes - Allergy/Home Medications Allergies/Adverse Reactions: Allergies Allergy/AdvReac Type Severity Reaction Status Date / Time Penicillins AdvReac Intermediate GI Upset Verified 08/22/18 15:55 PMH/Surg Hx/FS Hx/Imm Hx Previously Healthy: Yes Endocrine History: Diabetes Cardiovascular History: Hypertension, Atrial Fibrillation Other History Of: Negative For: Anticoagulant Therapy - Surgical History Surgical History: Yes Surgery Procedure, Year, and Place: Three inguinal hernia repairs. Tonsillectomy. Lt FOOT - 5TH TOE AMPUTATED 04/2017. Rt LEG - TIB/FIB FRACTURE - W/ PINS - Family History Known Family History: Positive: Cardiac Disease - Father of [place] at age 52, Diabetes - Social History Occupation: Retired Alcohol Use: Daily Alcohol Amount: 3-5 glasses Substance Use Type: None Smoking Status (MU): Former Smoker Type: Cigarettes Have You Smoked in the Last Year: No When Did the Patient Quit Smoking/Using Tobacco: 40 yrs ago - Immunization History Most Recent Influenza Vaccination: 12/23/17 Most Recent Pneumonia Vaccination: last admission Review of Systems All Other Systems Reviewed And Are Negative: Yes Skin: Positive: Other - Patient has a total of 5 very small open sores to the lateral aspect of his left foot and plantar surface. Motor: Positive: Other - Patient normally does not have good range of motion of his left foot because of the deformity that he has worse but turns inward which she states worsened when he got his fifth toe amputated as result of an infection Neurovascular: Positive: Decreased Sensation - Patient normally has decreased sensation of his toes and feet.. Negative: Decreased Pulses Musculoskeletal: Positive: Decreased ROM - Normal decreased range of motion of left ankle and foot. Neurological: Positive: Paresthesia, Numbness - He normally has loss of sensation in his left foot and toes. Is Patient Immunocompromised?: No Physical Exam Triage Information Reviewed: Yes Appearance: Well-Appearing, No Pain Distress, Well-Nourished, Obese Vital Signs: Initial Vital Signs Temp 98.6 F 08/22/18 15:49 Pulse 72 08/22/18 15:49 Resp 18 08/22/18 15:49 BP 105/67 08/22/18 15:49 Pulse Ox 99 08/22/18 15:49 Vital Signs Reviewed: Yes Musculoskeletal: Positive: Other: - Mild edema to foot due to patient's circulatory problems. Neurological: Positive: Alert, Muscle Tone Normal, Other: - Lack of sensation to touch on his toes and foot (which patient states this is normal) Psychological Exam: Normal Skin Exam: Other - Patient has about 5 very small open sores, 2 on his left dorsum and ankle measuring approximately 3 mm in diameter surrounded by very minimal erythema and no active drainage. The other 3 are on the plantar surface of his left foot but there is no evidence of cellulitis or infection there and no active drainage. Course/Dx - Course Course Of Treatment: Patient states his allergy to penicillin is only that it gives him a stomachache. He did have reaction to doxycycline one time in the past. I'm going to start him on cephalexin with a definite follow-up with his primary care provider in 4 or 5 days for recheck especially if the area worsens. He is to change dressing daily. I asked him to examine his feet every day even when he does not have sores to see if there is any skin breakdown. He's going to apply warm moist compresses to the area or soak his foot but to check the water prior to putting his foot and since he has lack of sensation of his foot. The patient states he has no history of MRSA however he thinks he might be allergic to sulfa so I given cephalexin instead. - Diagnoses Provider Diagnosis: Cellulitis of foot Discharge - Sign-Out/Discharge Documenting (check all that apply): Patient Departure All imaging exams completed and their final reports reviewed: No Studies - Discharge Plan Condition: Fair Disposition: HOME Prescriptions: Cephalexin CAP* [Keflex 500 CAP*] 500 mg PO TID 10 Days #30 cap Patient Education Materials: Cellulitis (DC) Referrals: Ramez Akins MD [Primary Care Provider] - Additional Instructions: Warm moist compresses to the affected area 4-6 times a day or warm moist soaks however be aware of the temperature of the water prior to putting your foot that. Check your feet every day and if the area seems to be worsening or red streaks up your foot or leg you are to follow-up with your primary care provider. If you start running a fever as well as worsening symptoms you are to go to the emergency room for further treatment. - Billing Disposition and Condition Condition: FAIR Disposition: Home
== END 2018-08-22 16:45 | disposition home or self-care (01) ==
LOC: UCEAST 15:18
DX: L03.116 Cellulitis of left lower limb (principal); R20.2 Paresthesia of skin; E11.9 Type 2 diabetes mellitus without complications; I10 Essential (primary) hypertension; I48.91 Unspecified atrial fibrillation; Z89.422 Acquired absence of other left toe(s); Z88.0 Allergy status to penicillin; Z87.891 Personal history of nicotine dependence
CPT/HCPCS: 99212; G0463

== ENCOUNTER 2018-09-30 10:15 | Day surgery (SDC) | payer MEDICARE, OTHER ==
[~2018-09-30 10:15] MED LIST changes: +Buffered Lidocaine 1% SYRIN* 1 ML/SYRINGE INTRADERM ONE; -DOXYcycline CAP(*) 100 MG PO ONE; +Famotidine IV* 10 MG/ML 2 ML (20 mg) IV ONE; +Lactated Ringers 1000 ML Bag* 1,000 ML IV SCH; -Silver Sulfadiazine 1%* 20 GM TOPICAL ONE
[2018-09-30] MEDS ORDERED: Famotidine IV* 10 MG/ML 2 ML (20 mg) ONE (10:43)
[2018-09-30] MEDS ORDERED: Buffered Lidocaine 1% SYRIN* 1 ML/SYRINGE INTRADERM ONE (10:43)
[2018-09-30] MEDS ORDERED: Lidocaine 2% PF * 5 ML VIAL ONE (11:50)
[2018-09-30] MEDS ORDERED: Ondansetron INJ* 2 MG/ML VIAL ONE (11:50)
[2018-09-30] MEDS ORDERED: Propofol* 10 MG/ML 20 ML BTL ONE (11:50)
[2018-09-30] MEDS ORDERED: Midazolam* 1 MG/ML 5 ML VIAL (5 MG) ONE (11:51)
[2018-09-30] MEDS ORDERED: KETAMINE HCL* 50 MG/ML 10 ML VIAL ONE (11:51)
[2018-09-30] MEDS ORDERED: fentaNYL* 50 MCG/ML 2 ML VIAL (100 MCG VIAL) ONE (11:51)
[2018-09-30 12:06] LABS: Albumin 3.9 g/dL (3.2-5.2); Albumin/Globulin Ratio 1.2 (1-3); BUN/Creatinine Ratio 23.4 (8-20); Calcium 10.2 mg/dL (8.6-10.3); EGFR African American 79.2 (>60); EGFR Non-African American 65.5 (>60); Globulin 3.3 g/dL (2-4); HDL Cholesterol 67.8 mg/dL; Potassium 4.9 mmol/L (3.5-5.0); Total Bilirubin 1.1 mg/dL (0.2-1.0); Total Protein 7.2 g/dL (6.4-8.9)
[2018-09-30] MEDS ORDERED: Ondansetron INJ* 2 MG/ML VIAL IV PRN (12:10)
[2018-09-30] MEDS ORDERED: fentaNYL* 50 MCG/ML 2 ML VIAL (100 MCG VIAL) IV PRN (12:10)
[2018-09-30] MEDS ORDERED: Naloxone* 0.4 MG/ML 1 ML VIAL IV PRN (12:10)
[2018-09-30 13:39] VITALS: BP 112/60
[2018-09-30 19:52] LABS: Hepatitis C Antibody Negative (Negative)
--- NOTE | 2018-10-03 03:50 | PRO ---
CC: Ramez Akins MD * ESOPHAGOGASTRODUODENOSCOPY REPORT: DATE OF SERVICE: 09/30/18 PRIMARY CARE PHYSICIAN: Ramez Akins MD. INDICATION FOR PROCEDURE: Gastric ulcer, probable cirrhosis. PROCEDURE PERFORMED: Complete esophagogastroduodenoscopy with biopsies. MEDICATIONS GIVEN: Please see anesthesia records. DESCRIPTION OF PROCEDURE: After the EGD procedure including the risks, benefits , and alternatives with the risks not limited to perforation, surgery, missed lesions and/or were explained to the patient, written informed consent was obtained, IV medication was given, and a bite block was placed between the teeth. The adult Olympus gastroscope was then inserted into the patient's oropharynx into the tubular esophagus. The tubular esophagus did not show any evidence of esophageal varices. There was some mild reflux at the distal esophagus that was less than 0.5 cm. The scope was advanced to the lower esophageal sphincter into the stomach. Portal hypertensive gastropathy was noted. The area, where his gastric ulcer previously was, was healed. A biopsy was taken for H. pylori. The scope was then retroflexed. Portal hypertensive gastropathy was again noted. No gastric varices were noted. The scope was advanced through a widely patent pylorus into the duodenal bulb, C-loop, and distal duodenum. These were normal in appearance. The scope was then removed from the patient. He tolerated the procedure well. He returned to the recovery room in stable condition. IMPRESSION: 1. Complete esophagogastroduodenoscopy with biopsies. 2. Healed gastric ulcer. 3. Portal hypertensive gastropathy. 4. Mild reflux. RECOMMENDATIONS: Repeat EGD in 2 years for variceal surveillance. He should continue to avoid NSAIDs as I suspect this was the etiology of his ulceration. After a rosi discussion, he admits that he is still drinking alcohol even after our discussion in the office about the need for complete cessation. I again discussed this with him that he will significantly truncate his life if he continues to drink 3 to 4 drinks a night as he is currently doing. I discussed that the best step in terms of trying to avoid the complications of cirrhosis is complete alcohol avoidance. We will plan on getting an ultrasound with elastography, see him in followup in the next 2 to 3 months and see how he is doing with his alcohol cessation. [id number]/[facility] #: [id number] [facility]
== END 2018-09-30 14:00 | disposition home or self-care (01) ==
LOC: OR 10:15
PROVIDERS: ATTEND Internal Medicine Gastroenterology
DX: K76.6 Portal hypertension (principal); K21.9 Gastro-esophageal reflux disease without esophagitis
CPT/HCPCS: 36415; 80053; 80061; 86803; 88305; 88342; J2250; J2405; J2704; J3010

== ENCOUNTER 2018-11-26 14:40 | Emergency (ER) | payer MEDICARE, OTHER ==
--- OUTSIDE RECORDS SUMMARY | 2018-11-26 14:46 | XMS REPORT | Continuity of Care Document ---
:1950 External Reference #:[id number] Author Name Ramez Akins M.D. (transmitted by agent of provider Magy Chapin) Address [address], [address] [place] [id number] Care Team Providers Name Role Phone Ramez Akins III, MD - Internal Care Team Information [facility]usher Medicine [facility] Sleep [facility] - Sleep Disorder Care Team Information [facility] Diagnostic Roger Barahona DPM - Foot Surgery Care Team Information Flask Pusher [phone] Wound Clinic - Clinic/Center Care Team Information Flask Pusher [phone] [facility] - Care Team Information Flask Pusher [phone] Home Health Problems Active Problems Provider Date Impaired fasting glycaemia Ramez Akins M.D. Onset: 03/03/2011 Benign essential hypertension Ramez Akins M.D. Onset: 03/03/2011 Anxiety state Ramez Akins M.D. Onset: 03/03/2011 Pure hypercholesterolemia Ramez Akins M.D. Onset: 03/03/2011 Ulcer of foot Ramez Akins M.D. Onset: 03/03/2011 Type 2 diabetes mellitus Caitlyn Jones, N.PMartita Onset: 12/10/2011 Morbid obesity Caitlyn Jones N.PMartita Onset: 12/10/2011 Ulcer of lower extremity Ramez Akins M.D. Onset: 06/30/2012 Peripheral venous insufficiency Ramez Akins M.D. Onset: 06/30/2012 Essential hypertension Ramez Akins M.D. Onset: 05/28/2015 Disturbance in sleep behavior Purvi Rod MD Onset: 10/24/2015 Hypoxemia Purvi Rod MD Onset: 10/24/2015 Atrial fibrillation Ramez Akins M.D. Onset: 07/16/2016 Obstructive sleep apnea syndrome Ramez Akins M.D. Onset: 12/09/2017 Charcot's joint of foot Marlon Buckley MD Onset: 05/31/2018 Social History Type Date Description Comments Sex Unknown Cigarette Use Quit 30 Years Ago Tobacco Use Start: Unknown Former Cigarette Smoker End: Unknown 1 Pack Daily Smoking Status Reviewed: 11/24/18 Former Cigarette Smoker 1 Pack Daily ETOH Use Currently consumes 3 glasses of wine a alcohol day Tobacco Use Start: Unknown Patient is a former End: Unknown smoker Recreational Drug Use Denies Drug Use Exercise Type/Frequency Exercises sporadically PT and occasional visiting nurse service Allergies, Adverse Reactions, Alerts Active Allergies Reaction Severity Comments Date PCN GI Pset 01/05/2007 Sulfa Antibiotics hives 06/28/2018 Medications Active Medications SIG Qnty Indications Ordering Date Provider Diazepam 1 by mouth three 20tabs Ramez E. 09/01/2018 5mg Tablets times a day as Rex Akins needed Nystatin please apply to 30gm B37.2 Latanya Manzo MD 08/30/2018 [id number]/GM the affected area Cream twice daily Furosemide 1 by mouth every 90tabs R60.0 Steffen Garcia, 03/21/2018 20mg Tablets day DO FACC Losartan take 1 tablet by 90tabs Steffen Garcia, 08/14/2016 Potassium/Hydrochlorot mouth every day DO FACC hiazide 100-25mg Tablets Xarelto Take 1 Tablet By 90tabs Ramez EMartita 02/28/2016 20mg Tablets Mouth Every Day Rex Akins Atorvastatin Calcium Take 1 Tablet By 90tabs E78.0 Ramez EMartita 02/01/2012 20mg Mouth AT Bedtime Rex Akins Tablets Metoprolol Succinate Take 1 Tablet By 90tabs Ramez EMartita 04/07/2011 ER Mouth Daily Rex Akins 100mg Tablets ER 24HR Citalopram Take 1 Tablet By 90tabs Ramez EMartita 05/17/2007 Hydrobromide Mouth Daily Rex Akins 20mg Tablets Multivitamins 1 PO qd Mikhail Davidson MD Tablets Tamsulosin HCL 1 by mouth every Unknown 0.4mg day 1/2 hour Capsules after dinner Gabapentin 1 capsule three 90caps Ramez E. 100mg Capsules times daily. Rex Akins Omeprazole 1 by mouth every 30caps Ramez E. 40mg Capsules day before Rex Akins DR breakfast Acetaminophen 2 every 4 hours Unknown 325mg as needed for Tablets pain Cephalexin Take one capsule Unknown 500mg Capsules by mouth three times a day for 10 days. Immunizations CPT Code Status Date Vaccine Lot # [id number] Given 01/23/2016 Flu Vaccine NOS 40389 Given 05/28/2015 Tdap - Tetanus/Diptheria/Acellular Pertussis [id number] 16285 Given 02/07/2015 Fluzone High Dose 15380 Given 09/25/2014 Pneumococcal Conjugate Vaccine 13 Valent For [id number] Intramuscular Use 19781 Given 01/23/2014 Fluzone High Dose 02863 Given 10/10/2013 Zoster (Zostavax) [id number] Q2039 Given 03/22/2013 Flu Vaccine NOS 57039 Given 03/31/2012 Pneumonia Vaccine [id number] Q2038 Given 02/11/2012 Fluzone Vaccine 18157 Given 03/03/2011 Influenza Virus 3Yrs & Over [id number] 70289 Given 01/24/2010 Influenza Virus 3Yrs & Over [id number] 43952 Given 02/07/2009 Influenza Virus 3Yrs & Over 11506 Given 02/07/2009 Influenza Virus 3Yrs & Over [id number] 19110 Given 01/05/2007 Influenza Virus 3Yrs & Over [id number] 24892 Given 06/02/2005 Td (History By Patient) Vital Signs Date Vital Result Comment 11/24/2018 4:22pm Height 75 inches 6'3" Heart Rate 66 /min BP Systolic Sitting 83 mmHg BP Diastolic Sitting 56 mmHg 08/30/2018 3:38pm Height 75 inches 6'3" Weight 385.00 lb Heart Rate 90 /min BP Systolic 100 mmHg BP Diastolic 68 mmHg Body Temperature 97.5 F O2 % BldC Oximetry 94 % BMI (Body Mass Index) 48.1 kg/m2 Results Test Date Facility Test Result H/L Range Note Laboratory test 09/30/2018 [facility] Surgical Pathology SEE RESULT [address] [place] [address] [phone] Lipid Profile 09/30/2018 [facility] Triglycerides 79 mg/dL 2 (Trig/Chol/HDL) [address] [place] [address] [phone] Cholesterol 142 mg/dL 3 HDL Cholesterol 67.8 mg/dL 4 LDL Cholesterol 58 mg/dL 5 Comp Metabolic Panel 09/30/2018 [facility] Sodium 123 mmol/L Low 135-[address] [place] [address] [phone] Potassium 4.9 mmol/L Normal 3.5-5.0 Chloride 90 mmol/L Low 101-111 Co2 Carbon Dioxide 25 mmol/L Normal 22-32 Anion Gap 8 mmol/L Normal 2-11 Glucose 121 mg/dL High 70-100 Blood Urea Nitrogen 26 mg/dL High 6-24 Creatinine 1.11 mg/dL Normal 0.67-1.17 BUN/Creatinine Ratio 23.4 High 8-20 Calcium 10.2 mg/dL Normal 8.6-10.3 Total Protein 7.2 g/dL Normal 6.4-8.9 Albumin 3.9 g/dL Normal 3.2-5.2 Globulin 3.3 g/dL Normal 2-4 Albumin/Globulin Ratio 1.2 Normal 1-3 Total Bilirubin 1.10 mg/dL High 0.2-1.0 Alkaline Phosphatase 116 U/L High 34-104 Alt 23 U/L Normal 7-52 Ast 26 U/L Normal 13-39 Egfr Non- 65.5 >60 Egfr 79.2 >60 6 Hepatitis C Antibody 09/30/2018 [facility] HCV Index 0.01 s/c [address] [place] [address] [phone] Hepatitis C Antibody Negative Negative Laboratory test 09/30/2018 [facility] Point of Care 130 mg/dL High 70-100 [address] [place] [address] [phone] Laboratory test 08/30/2018 [facility] In House Hemoglobin A1c 5.9% 5-7 finding 1 SEE RESULT BELOW Name: ALBIN LUEVANO Kandis : [address]: Fredrick Peters DO Acct: [id number] Unit: [id number] AGE: 68 Location: OR Re09/30/18 SEX: M Status: [facility] SPEC: [id number] JOHNNY: 09/30/18-[address] [facility] [address]: Fredrick Peters DO REQ: [id number] RECD: 09/30/183016 STATUS: JASSI ALEXANDER DR: Ramez Akins III, MD _ ORDERED: LEVEL 4, IMMUNO-FIRST FINAL DIAGNOSIS Stomach, antrum, biopsy: -- Gastric antral mucosa with mild non-specific chronic inflammation. -- No active gastritis nor Helicobacter pylori-like organisms are identified. -- No ulceration or evidence of neoplasia identified. COMMENT: An H. pylori immunohistochemical stain, with appropriately reacting controls, was performed and is negative for Helicobacter organisms. CLINICAL HISTORY Gastric ulcer POST-OPERATIVE DIAGNOSIS EGD: esophagus - various mild reflux; gastric - PHG healed ulcer; duodenum - normal GROSS DESCRIPTION The specimen is received in formalin labeled, Biopsy Gastric Antrum, and consists of a 0.4 x 0.2 x 0.1 cm reyes-red irregular soft tissue fragment which is submitted entirely in one cassette. Signed by and Reported on: Linh Ruvalcaba MD 10/04/18 1305 END OF REPORT DEPARTMENT OF PATHOLOGY, [address] [place] [address] Albin Mario M.D. Director [facility] # [id number] 2 Desirable: <150 Borderline High: 150-199 High: 200-499 Very High: >500 3 Desirable: <200 Borderline High: 200-239 High: >239 4 Low: <40 Desirable: 40-60 High: >60 5 Desirable: <100 Near Optimal: 100-129 Borderline High: 130-159 High: 160-189 Very High: >189 6 Because ethnic data is not always readily [...] 15-29 5 Kidney failure <15 (or dialysis) 7 Public Health Social Worker: [id number] Procedures Date Code Description Status 01/25/2017 91535780 Colonoscopy Completed 07/15/2012 773141629 Diabetic Retinal Eye Exam Completed 11/23/2008 [id number] Colonoscopy Completed Medical Devices Description No Information Available Encounters Type Date Location Provider Dx Diagnosis Office Visit 09/01/2018 Wound Care Lazaro MaryMartita I87.392 Chronic venous 1:00p Center AT [facility] Rex Casarez hypertension w oth comp of l low extrem 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 diabetic neuropathic arthropathy M25.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, left ankle Office Visit 07/20/2018 Wound Care Center Mayra Arita M25.572 Pain in left 2:00p AT [facility] MD Ger ankle and joints of left foot Office Visit 06/28/2018 Pulmonology And Mayela G47.33 Obstructive sleep 2:30p Sleep Services Of [facility] Beckford apnea (adult) [facility] (pediatric) Z68.42 Body mass index (BMI) 45.0-49.9, adult Office Visit 06/27/2018 Orthopedic Marlon Buckley, M25.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, 2:30p Services Of left ankle C.M.A. 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 Office Visit 06/10/2018 1:30p Wound Care Aretha Oliva, I87.312 Chronic venous Center AT [facility] AILEEN MILLER, GANG HEMSTITCHING MACHINE OPERATOR-BC hypertension w ulcer of l low extrem E08.622 Diabetes due to underlying condition w oth skin ulcer Office Visit 06/03/2018 2:30p Wound Care Aretha Oliva, S81.801A Unspecified open Center AT [facility] AILEEN MILLER, GANG HEMSTITCHING MACHINE OPERATOR-BC wound, right lower leg, initial encounter I87.312 Chronic venous hypertension w ulcer of l low extrem E08.622 Diabetes due to underlying condition w oth skin ulcer Office Visit 05/31/2018 Orthopedic Marlon Buckley, E11.610 Type 2 diabetes 2:30p Services Of MD herb lyle C.M.A. diabetic neuropathic arthropathy M25.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, left ankle Assessments Date Code Description Provider 11/24/2018 M14.672 Charcot's joint, left ankle and Ramez Akins M.D. foot 11/24/2018 L97.429 Non-pressure chronic ulcer of left Ramez Akins M.D. heel and midfoot with unspecified severity 11/24/2018 I10 Essential (primary) hypertension Ramez Akins M.D. 11/24/2018 E11.610 Type 2 diabetes mellitus with Ramez Akins M.D. diabetic neuropathic arthropathy 09/01/2018 I87.392 Chronic venous hypertension Lazaro Casarez M.D. (idiopathic) with other complica 09/01/2018 E11.610 Type 2 diabetes mellitus with Lazaro Casarez M.D. diabetic neuropathic arthropat 08/30/2018 E11.610 Type 2 diabetes mellitus with Latanya Manzo MD diabetic neuropathic arthropat 08/30/2018 I10 Essential (primary) hypertension Latanya Manzo MD 08/30/2018 B37.2 Candidiasis of skin and nail Latanya Manzo MD 07/27/2018 E11.610 Type 2 diabetes mellitus with Marlon Buckley MD diabetic neuropathic arthropat 07/27/2018 M25.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, left ankle Marlon Buckley MD 07/20/2018 M25.572 Pain in left ankle and joints of Mayra Cyr MD left foot 06/28/2018 G47.33 Obstructive sleep apnea (adult) Mayela Beckford NP (pediatric) 06/28/2018 Z68.42 Body mass index (BMI) 45.0-49.9, Mayela Beckford NP adult 06/27/2018 M25.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, left ankle Marlon Buckley MD 06/27/2018 E11.610 Type 2 diabetes mellitus with Marlon Buckley MD diabetic neuropathic arthropat 06/10/2018 I87.312 Chronic venous hypertension Aretha Oliva DNP, RN, (idiopathic) with ulcer of left GANG HEMSTITCHING MACHINE OPERATOR-BC 06/10/2018 E08.622 Diabetes mellitus due to Aretha Oliva DNP, RN, underlying condition with other GANG HEMSTITCHING MACHINE OPERATOR-[facility] 06/03/2018 S81.801A Unspecified open wound, right Aretha Oliva DNP, RN, lower leg, initial encounter GANG HEMSTITCHING MACHINE OPERATOR- 06/03/2018 I87.312 Chronic venous hypertension Aretha Oliva DNP, RN, (idiopathic) with ulcer of left [facility]- 06/03/2018 E08.622 Diabetes mellitus due to Aretha Oliva DNP, RN, underlying condition with other GANG HEMSTITCHING MACHINE OPERATOR-[facility] 05/31/2018 E11.610 Type 2 diabetes mellitus w Marlon Buckley MD diabetic neuropathic arthropathy 05/31/2018 M25.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, left ankle Marlon Buckley MD Plan of Treatment 11/24/2018 - Ramez Akins M.D.M14.672 Charcot's joint, left ankle and footL97.429 Non-pressure chronic ulcer of left heel and midfoot with unspecified severityReferral:[facility] [place], [facility] Nurse SpecI10 Essential (primary) hypertensionComments:Hold Furosemide and monitor home BPs. Watch for any recurrent leg njxsagdnF44.610 Type 2 diabetes mellitus with diabetic neuropathic arthropathyComments:A1c normal on diet Rx Functional Status Description No Information Available Mental Status Description No Information Available Referrals Refer to Reason for Referral Status Appt Date [facility] [place] [facility] for home assistive services Created and leg dressing/stocking care [address] [place] [address] [phone]
[2018-11-26 15:18] VITALS: BP 85/50
--- NOTE | 2018-11-26 15:40 | UC ---
Skin Complaint HPI - HPI Summary HPI Summary: patient has ahd intermittant recurring L foot skin ulcers. He saw Dr. Akins 2 days ago and was dx foot ulcer lateral L heel. currently on no antibiotic. Is wearing dressing. Patient feels he needs an antibiotic before it worsens - History of Current Complaint Chief Complaint: UCSkin Time Seen by Provider: 11/26/18 15:23 Stated Complaint: wound ON ANKLE Hx Obtained From: Patient Onset/Duration: Gradual Onset Timing: Constant Onset Severity: Mild Current Severity: Mild Pain Intensity: 1 Location: Foot (Left) Character: Swelling, Redness Aggravating Factor(s): Nothing Alleviating Factor(s): Nothing Associated Signs & Symptoms: Positive: Drainage. Negative: Fever, Chills, Tenderness Related History: Diabetes Similar Episode/Dx as: diabetic ulcer - Allergy/Home Medications Allergies/Adverse Reactions: Allergies Allergy/AdvReac Type Severity Reaction Status Date / Time Sulfa (Sulfonamide Allergy Intermediate Hives Verified 11/26/18 15:03 Antibiotics) Penicillins AdvReac Intermediate GI Upset Verified 11/26/18 15:03 Home Medications: Home Medications Diazepam TAB(*) [Valium TAB(*)] 1 tab PO TID PRN 11/26/18 [History Confirmed ] PMH/Surg Hx/FS Hx/Imm Hx Previously Healthy: Yes Endocrine History: Diabetes, Dyslipidemia Cardiovascular History: Hypertension, Atrial Fibrillation Psychological History: Anxiety, Depression Other History Of: Negative For: Anticoagulant Therapy - Surgical History Surgical History: Yes Surgery Procedure, Year, and Place: Three inguinal hernia repairs. Tonsillectomy. Lt FOOT - 5TH TOE AMPUTATED 04/2017. Rt LEG - TIB/FIB FRACTURE - W/ PINS - Family History Known Family History: Positive: Cardiac Disease - Father of [place] at age 52, Diabetes - Social History Occupation: Retired Lives: With Family Alcohol Use: Daily Alcohol Amount: 3-5 glasses Substance Use Type: None Smoking Status (MU): Former Smoker Type: Cigarettes Have You Smoked in the Last Year: No When Did the Patient Quit Smoking/Using Tobacco: 40 yrs ago - Immunization History Most Recent Influenza Vaccination: 12/23/17 Most Recent Pneumonia Vaccination: last admission Review of Systems All Other Systems Reviewed And Are Negative: Yes Constitutional: Positive: Negative. Negative: Fever, Chills Skin: Positive: Other - erythema, swelling L heel Respiratory: Positive: Negative Cardiovascular: Positive: Negative Musculoskeletal: Positive: Other: - wears boot on L lower ext. unless sleeping Neurological: Positive: Negative Psychological: Positive: Negative Is Patient Immunocompromised?: No Physical Exam Triage Information Reviewed: Yes Appearance: Well-Appearing, No Pain Distress, Obese Vital Signs: Initial Vital Signs Temp 97.8 F 11/26/18 15:13 Pulse 70 11/26/18 15:13 Resp 17 11/26/18 15:13 BP 85/50 11/26/18 15:13 Pulse Ox 97 11/26/18 15:13 Vital Signs Reviewed: Yes Respiratory Exam: Normal Respiratory: Positive: Lungs clear Cardiovascular Exam: Normal Cardiovascular: Positive: RRR Musculoskeletal Exam: Normal - for patient's baseline Neurological Exam: Normal Psychological Exam: Normal Skin Exam: Other - erythema, swelling L heel, with 1cm non-draining open ulcer Course/Dx - Differential Diagnoses - Skin Complaint Differential Diagnoses: Abscess, Cellulitis - Diagnoses Provider Diagnosis: Diabetic ulcer of foot associated with diabetes mellitus due to underlying condition, limited to breakdown of skin Discharge - Sign-Out/Discharge Documenting (check all that apply): Patient Departure All imaging exams completed and their final reports reviewed: No Studies - Discharge Plan Condition: Stable Disposition: HOME Prescriptions: DOXYcycline CAP(*) [DOXYcycline 100MG CAP(*)] 100 mg PO BID #20 cap Patient Education Materials: Foot Care for People with Diabetes (ED), Diabetic Foot Ulcers (ED) Referrals: Ramez Akins MD [Primary Care Provider] - 2 Days (for recheck wound) Additional Instructions: keep wound clean and dry and covered start doxycycline antibiotic and take as directed elevate your foot report to ER if you develop a fever or your symptoms worsen at any time - Billing Disposition and Condition Condition: STABLE Disposition: Home
== END 2018-11-26 16:10 | disposition home or self-care (01) ==
LOC: UCEAST 14:40
DX: E11.621 Type 2 diabetes mellitus with foot ulcer (principal); L97.429 Non-pressure chronic ulcer of left heel and midfoot with unspecified severity; Z88.0 Allergy status to penicillin; Z88.2 Allergy status to sulfonamides; Z87.891 Personal history of nicotine dependence
CPT/HCPCS: 99212; G0463

== ENCOUNTER 2018-11-30 22:39 | Emergency (ER) | payer MEDICARE, OTHER ==
--- NOTE | 2018-11-30 23:46 | ED ---
Complex/Multi-Sys Presentation - HPI Summary HPI Summary: 68 year old M brought in by ambulance to [facility] complains of fall this evening. Patient normally uses walker to walk. After falling tonight, called 911 per patient. The patient denies being in pain. The patient rates the pain 0/10 in severity. Symptoms aggravated by nothing. Symptoms alleviated by nothing. Patient additionally complains of left foot pain. Patient went to [facility] this morning to be evaluated for his left foot ulcer after which he was discharged. Patient states he had left fifth toe amputation with Dr. Rojas last year. He [facility]. Patient states he drinks occasionally. Patient states he was drinking vodka this evening. Per EMS , patient voiced suicidal and depressive thoughts. Patient reports feeling depressed from being wheelchair bound for 2 years. Patient denies suicidal ideation. Patient denies taking psychiatric medications, denies psychiatric hx. - History Of Current Complaint Chief Complaint: EDMentalHealth Time Seen by Provider: 11/30/18 23:23 Hx Obtained From: Patient, EMS Onset/Duration: Lasting Hours, Still Present Timing: Constant Severity Currently: None Aggravating Factor(s): Nothing Alleviating Factor(s): Nothing - Allergies/Home Medications Allergies/Adverse Reactions: Allergies Allergy/AdvReac Type Severity Reaction Status Date / Time Sulfa (Sulfonamide Allergy Intermediate Hives Verified 11/30/18 23:04 Antibiotics) Penicillins AdvReac Intermediate GI Upset Verified 11/30/18 23:04 PMH/Surg Hx/FS Hx/Imm Hx Endocrine/Hematology History: Reports: Hx Blood Transfusions - 1975 had blood transfusion, Hx Diabetes - type 2 Denies: Hx Anticoagulant Therapy, Hx Blood Disorders, Hx Bone Marrow Disease , Hx Systemic Lupus Erythematosus, Hx Sickle Cell Disease, Hx Thyroid Disease, Hx Anemia, Hx Unexplained Bleeding, Other Endocrine/Hematological Disorders Cardiovascular History: Reports: Hx Aneurysm - AAA repair, Hx Atrial Fibrillation, Hx Congestive Heart Failure, Hx Hypertension, Hx Peripheral Vascular Disease - Vein seal left leg, Dr Cerda's office 09/19, Other Cardiovascular Problems/Disorders - A- Fib Denies: Hx Angina, Hx Angioplasty, Hx Auto Implanted Cardiovert Defib, Hx Cardiac Arrest, Hx Cardiomegaly, Hx Coronary Artery Disease, Hx Deep Vein Thrombosis, Hx Embolism, Hx Hypercholesterolemia, Hx Pacemaker/ICD, Hx Syncope, Hx Valvular Heart Disease Respiratory History: Reports: Hx Chronic Bronchitis, Hx Sleep Apnea, Other Respiratory Problems/Disorders - Acute Respiratory failure Denies: Hx Asthma, Hx Chronic Obstructive Pulmonary Disease (COPD), Hx Cystic Fibrosis, Hx Lung Cancer, Hx Pleural Effusion, Hx Pneumonia, Hx Seasonal Allergies GI History: Reports: Hx Hiatal Hernia - x3 had surgery Denies: Hx Gall Bladder Disease, Hx Gastroesophageal Reflux Disease, Hx Jaundice, Hx Obstructive Bowel, Hx Ileostomy, Hx Pyloric Stenosis, Hx Ulcer - possible History: Reports: Hx Benign Prostatic Hyperplasia, Other Problems/ Disorders - Benign prostate hypertrophy Denies: Hx Dialysis, Hx Kidney Infection, Hx Kidney Stones, Hx Renal Disease Musculoskeletal History: Reports: Hx Back Problems - low back pain occassionally , Hx Orthopedic Injury - broke right leg from knee down had surgery here 2010, Other Musculoskeletal History - 3 inguinal hernias Denies: Hx Arthritis, Hx Fibromyalgia, Hx Gout, Hx Osteoporosis, Hx Scoliosis , Hx Tendonitis Sensory History: Reports: Hx Vision Problem Denies: Hx Cataracts, Hx Contacts or Glasses, Hx Glaucoma, Hx Hearing Aid Opthamlomology History: Reports: Hx Vision Problem Denies: Hx Cataracts, Hx Contacts or Glasses, Hx Glaucoma Neurological History: Reports: Hx Nerve Disease - diabetic nueropathy Denies: Hx Dementia, Hx Developmental Delay, Hx Headaches, Hx Migraine, Hx Seizures, Hx Spinal Cord Injury, Hx Transient Ischemic Attacks (TIA), Other Neuro Impairments/Disorders Psychiatric History: Reports: Hx Anxiety, Hx Depression Denies: Hx Attention Deficit Hyperactivity Disorder, Hx Eating Disorder, Hx Panic Disorder, Hx Inpatient Treatment, Hx Schizophrenia, Hx Bipolar Disorder, Hx Suicide Attempt, Hx Substance Abuse - Cancer History Hx Chemotherapy: No - Surgical History Surgery Procedure, Year, and Place: Three inguinal hernia repairs. Tonsillectomy. Lt FOOT - 5TH TOE AMPUTATED 04/2017. Rt LEG - TIB/FIB FRACTURE - W/ PINS Hx Anesthesia Reactions: No Infectious Disease History: Unable to Obtain/Confirm Infectious Disease History: Denies: Hx Hepatitis, Hx Human Immunodeficiency Virus (HIV), Hx of Known/ Suspected MRSA, Hx Tuberculosis, History Other Infectious Disease, Traveled Outside the [place] in Last 30 Days - Family History Known Family History: Positive: Cardiac Disease - Father of ID at age 52, Diabetes - Social History Alcohol Use: Daily Alcohol Amount: 3-5 glasses Hx Substance Use: No Substance Use Type: Reports: None Hx Tobacco Use: Yes Smoking Status (MU): Former Smoker Type: Cigarettes Have You Smoked in the Last Year: No Review of Systems Positive: Other - left foot pain Positive: Other - depressed; NEG: SI All Other Systems Reviewed And Are Negative: Yes Physical Exam - Summary Physical Exam Summary: VITAL SIGNS: Reviewed. GENERAL: Patient is a morbidly obese MALE who is lying comfortable in the stretcher. Patient is not in any acute respiratory distress. HEAD AND FACE: No signs of trauma. No ecchymosis, hematomas or skull depressions. No sinus tenderness. EYES: PERRLA, EOMI x 2, No injected conjunctiva, no nystagmus. EARS: Hearing grossly intact. Ear canals and tympanic membranes are within normal limits. MOUTH: Oropharynx within normal limits. NECK: Supple, trachea is midline, no adenopathy, no JVD, no carotid bruit, no c- spine tenderness, neck with full ROM CHEST: Symmetric, no tenderness at palpation LUNGS: Clear to auscultation bilaterally. No wheezing or crackles. CVS: Regular rate and rhythm, S1 and S2 present, no murmurs or gallops appreciated. ABDOMEN: Soft, non-tender. No signs of distention. No rebound no guarding, and no masses palpated. Bowel sounds are normal. EXTREMITIES: He has amputation of his left fifth toe. He has superficial, stage 1, 2-inch by 1-inch area in the lateral aspect of left foot of skin loss. NEURO: Alert and oriented x 3. No acute neurological deficits. Speech is normal and follows commands. SKIN: Dry and warm Triage Information Reviewed: Yes Vital Signs On Initial Exam: Initial Vitals Temp Pulse Resp BP Pulse Ox 97.6 F 82 16 91/59 95 11/30/18 22:45 11/30/18 22:45 11/30/18 22:45 11/30/18 22:45 11/30/18 22:45 Vital Signs Reviewed: Yes Diagnostics - Vital Signs Vital Signs Temp Pulse Resp BP Pulse Ox 11/30/18 22:45 97.6 F 82 16 91/59 95 - Laboratory Result Diagrams: 12/01/18 00:07 12/01/18 00:07 Lab Statement: Any lab studies that have been ordered have been reviewed, and results considered in the medical decision making process. Re-Evaluation - Re-Evaluation First Eval Re-Evaluation Time: 04:48 Comment: patient is medically cleared for MHE Complex Multi-Symp Course/Dx Course Of Treatment: 68 year old M brought in by ambulance to [facility] complains of fall this evening. The patient denies pain. Patient states he was drinking vodka this evening. Per EMS, patient voiced suicidal and depressive thoughts. Patient reports feeling depressed from being wheelchair bound for 2 years. Patient denies suicidal ideation. Patient denies taking psychiatric medications , denies psychiatric hx. Physical exam findings: Patient is morbidly obese. He has amputation of his left fifth toe. He has superficial, stage 1, 2-inch by 1- inch area in the lateral aspect of left foot of skin loss. Blood work with no significant abnormalities except for RBC 3.88, Hgb 12.9, Hct 38, MCV 99, MCH 33 , absolute monos 1.2, sodium 131, chloride 96, BUN 29, creatinine 1.23, BUN/ Creatinine ratio 23.6, alkaline phosphatase 106, serum alcohol 210. Urinalysis with no significant abnormalities except for absorbic acid A. Toxicology is positive for benzodiazepines. Patient will be signed out to Dr. Da Silva upon shift change 12/01/18 07:00, pending MHE and disposition. - Diagnoses Provider Diagnoses: Alcohol intoxication, Depression Discharge ED - Sign-Out/Discharge Documenting (check all that apply): Sign-Out Patient Signing out patient TO: Ken Da Silva - pending MHE and disposition Patient Received Moderate/Deep Sedation with Procedure: No - Discharge Plan Condition: Stable Referrals: Ramez Akins MD [Primary Care Provider] - - Attestation Statements Document Initiated by Scribe: Yes Documenting Scribe: Dilcia Rowe Provider For Whom Scribe is Documenting (Include Credential): Aicha Mejias MD Scribe Attestation: Dilcia Paul, scribed for Aicha Mejias MD on 12/01/18 at 0630. Status of Scribe Document: Ready
[2018-12-01 00:13] LABS: ABS Basophils 0.1 10^3/ul (0-0.2); ABS Eosinophils 0.3 10^3/ul (0-0.6); ABS Lymphocytes 1.7 10^3/ul (1.0-4.8); ABS Monocytes 1.1 10^3/ul (0-0.8); ABS Neutrophils 7.1 10^3/ul (1.5-7.7); Eosinophil % 2.6 %; Hematocrit 38 % (42-52); Hemoglobin 12.9 g/dL (14.0-18.0); Lymphocyte % 16.9 %; Mean Corpuscular HGB Conc 34 g/dL (31-36); Mean Corpuscular Hemoglobin 33 pg (27-31); Mean Corpuscular Volume 99 fL (80-94); Mean Platelet Volume 8.3 fL (7.4-10.4); Platelet Count 204 10^3/uL (150-450); Red Blood Count 3.88 10^6 /uL (4.18-5.48); Red Cell Distribution Width 14 % (10-15); White Blood Count 10.3 10^3/uL (3.5-10.8)
[2018-12-01 00:36] LABS: ALT 13 U/L (7-52); AST 19 U/L (13-39); Albumin 3.6 g/dL (3.2-5.2); Albumin/Globulin Ratio 1.2 (1-3); Alkaline Phosphatase 106 U/L (34-104); Anion Gap 9 mmol/L (2-11); BUN/Creatinine Ratio 23.6 (8-20); Blood Urea Nitrogen 29 mg/dL (6-24); CO2 Carbon Dioxide 26 mmol/L (22-32); Chloride 96 mmol/L (101-111); EGFR African American 70.4 (>60); EGFR Non-African American 58.2 (>60); Globulin 2.9 g/dL (2-4); Glucose 79 mg/dL (70-100); Potassium 3.9 mmol/L (3.5-5.0); Sodium 131 mmol/L (135-145); Total Protein 6.5 g/dL (6.4-8.9)
[2018-12-01 01:28] LABS: Acetaminophen < 15 mcg/mL; Alcohol 210 mg/dL (<10); Salicylate < 2.50 mg/dL (<30)
[2018-12-01 01:43] LABS: TSH (Thyroid Stimulating Horm) 2.36 mcIU/mL (0.34-5.60)
[2018-12-01 01:47] LABS: Urine Appearance Clear; Urine Bilirubin Negative (Negative); Urine Blood Negative (Negative); Urine Color Yellow; Urine Glucose Negative (Negative); Urine Ketones Negative (Negative); Urine Nitrite Negative (Negative); Urine Protein Negative (Negative); Urine Specific Gravity 1.012 (1.010-1.030); Urine Urobilinogen Negative (Negative)
[2018-12-01 02:13] LABS: Urine Benzodiazepine Screen Presumptive Positive (None Detect); Urine Opiates Screen None Detected (None Detect)
--- NOTE | 2018-12-01 07:10 | ED ---
Progress - Progress Note Progress Note: The patient is a sign-out from Dr. Aicha Mejias MD, to Dr. Ken Da Silva MD, at change of shift at 0700 on 12/01/2018, pending MHE and disposition. At 1017, Dr. Osorio, psychiatry clears the patient for discharge with outpatient treatment. Patient agrees with this plan. - Consult/PCP Time Called: 05:00 Re-Evaluation - Re-Evaluation First Eval Re-Evaluation Time: 04:48 Comment: patient is medically cleared for MHE Course/Dx - Course Course Of Treatment: The patient is a sign-out from Dr. Aicha Mejias MD, to Dr. Ken Da Silva MD, at change of shift at 0700 on 12/01/2018, pending MHE and disposition. Dr. Osorio from psychiatry clears patient for discharge. Patient understands and agrees with plan. - Diagnoses Provider Diagnoses: Alcohol intoxication, Depression - Provider Notifications Discussed Care Of Patient With: Nitesh Osorio - psychiatry Time Discussed With Above Provider: 10:17 Instructed by Provider To: Other - Dr. Osorio clears pt for discharge with outpatient follow-up. Discharge ED - Sign-Out/Discharge Documenting (check all that apply): Patient Departure - Patient will be discharged home., Receiving Sign-Out Receiving patient FROM: Aicha Mejias - Patient is a sign-out from Dr. Aicha Mejias MD, at change of shift at 0700 on 12/01/2018, pending MHE and disposition. Patient Received Moderate/Deep Sedation with Procedure: No - Discharge Plan Condition: Stable Disposition: HOME Patient Education Materials: Alcohol Intoxication (ED) Referrals: Visiting Nurse Sudheer, [Z.BUSINESS, APPLICATION, OTHER] - (Referral being set up through primary provider. ) Ramez Akins MD [Primary Care Provider] - - Billing Disposition and Condition Condition: STABLE Disposition: Home - Attestation Statements Document Initiated by William: Yes Documenting Scribe: Eleanor Alexandra Provider For Whom William is Documenting (Include Credential): Dr. Ken Da Silva MD Scribe Attestation: Eleanor Paul scribed for Dr. Ken Da Silva MD on 12/01/18 at 1334. Scribe Documentation Reviewed: Yes Provider Attestation: The documentation as recorded by the Eleanor cha accurately reflects the service I personally performed and the decisions made by me, Dr. Ken Da Silva MD Status of Scribe Document: Viewed
[2018-12-01 11:59] VITALS: BP 121/82
== END 2018-12-01 11:57 | disposition home or self-care (01) ==
LOC: ED 22:39
DX: F10.129 Alcohol abuse with intoxication, unspecified (principal); F32.9 Major depressive disorder, single episode, unspecified; I73.9 Peripheral vascular disease, unspecified; N40.0 Benign prostatic hyperplasia without lower urinary tract symptoms; Z88.2 Allergy status to sulfonamides; Z88.0 Allergy status to penicillin; Z87.891 Personal history of nicotine dependence; Z91.81 History of falling; E11.9 Type 2 diabetes mellitus without complications; I11.0 Hypertensive heart disease with heart failure; I50.9 Heart failure, unspecified; Z79.899 Other long term (current) drug therapy
CPT/HCPCS: 36415; 80053; 80307; 80320; 80329; 81003; 84443; 85025; 99282; G0480

== ENCOUNTER 2019-06-16 12:09 | Emergency (ER) | payer MEDICARE, OTHER ==
--- OUTSIDE RECORDS SUMMARY | 2019-06-16 12:15 | XMS REPORT | Continuity of Care Document ---
:1950 External Reference #:[id number] Author Name Marlon Buckley MD (transmitted by agent of provider Eileen Mack) Address [address] [place] [address] Care Team Providers Name Role Phone Ramez Akins III, MD - Internal Care Team Information [facility] Sleep Clinic - Sleep Disorder Care Team Information [employer] [phone] Diagnostic Roger Barahona DPM - Foot Surgery Care Team Information [facility] Wound [facility] - Clinic/Center Care Team Information [employer] [facility] [phone] Visiting Nurse Services [facility] - Care Team Information [facility] Home Health Problems Active Problems Provider Date Impaired fasting glycaemia Ramez Akins M.D. Onset: 03/03/2011 Benign essential hypertension Ramez Akins M.D. Onset: 03/03/2011 Anxiety state Ramez Akins M.D. Onset: 03/03/2011 Pure hypercholesterolemia Ramez Akins M.D. Onset: 03/03/2011 Ulcer of foot Ramez Akins M.D. Onset: 03/03/2011 Type 2 diabetes mellitus Caitlyn Jones, N.PMartita Onset: 12/10/2011 Morbid obesity Caitlyn Jones N.Yolanda Onset: 12/10/2011 Ulcer of lower extremity Ramez Akins M.D. Onset: 06/30/2012 Peripheral venous insufficiency Ramez Akins M.D. Onset: 06/30/2012 Essential hypertension Ramez Akins M.D. Onset: 05/28/2015 Disturbance in sleep behavior Purvi oRd MD Onset: 10/24/2015 Hypoxemia Purvi Rod MD Onset: 10/24/2015 Atrial fibrillation Ramez Akins M.D. Onset: 07/16/2016 Obstructive sleep apnea syndrome Ramez Akins M.D. Onset: 12/09/2017 Charcot's joint of foot Marlon Buckley MD Onset: 05/31/2018 Social History Type Date Description Comments Sex Unknown Cigarette Use Quit 30 Years Ago Tobacco Use Start: Unknown Former Cigarette Smoker End: Unknown 1 Pack Daily Smoking Status Reviewed: 04/24/19 Former Cigarette Smoker 1 Pack Daily ETOH [...] Medications Active Medications SIG Qnty Indications Ordering Provider Date Wrist Brace Ultra-Lite l and r wrist 2units R20.8 Ramez Akins, 2018 Carpal Tunnel/One Size braces for M.D. carpal tunnel Misc symptoms Diazepam 1 by mouth three 20tabs Susan Cotton, 09/01/2018 5mg Tablets times a day as M.D. needed. Must use Cpap if taking this at night Furosemide 1/2 by mouth 90tabs R60.0 Steffen Garcia, 03/21/2018 20mg Tablets every day DO FACC Losartan take 1/2 tablet 90tabs Ramez Akins, 08/14/2016 Potassium/Hydrochlorot by mouth every M.D. hiazide day 100-25mg Tablets Xarelto Take 1 Tablet By 90tabs Ramez Akins, 02/28/2016 20mg Tablets Mouth Every Day M.D. Atorvastatin Calcium take 1 tablet by 90tabs E78.00 Ramez Akins, 20mg mouth at bedtime M.D. Tablets Metoprolol Succinate Take 1 Tablet By 90tabs Ramez Akins, 04/07/2011 ER Mouth Daily M.D. 100mg Tablets ER 24HR Citalopram Take 1 Tablet By 90tabs Susan Cotton, 05/17/2007 Hydrobromide Mouth Daily M.D. 20mg Tablets Multivitamins 1 PO qd Mikhail Davidson MD Tablets Tamsulosin HCL 1 by mouth every Unknown 0.4mg day 1/2 hour Capsules after dinner Acetaminophen 2 every 4 hours Unknown 325mg as needed for Tablets pain Spironolactone 1/2 by mouth Unknown 25mg every day Tablets Immunizations CPT Code Status Date Vaccine Lot # [id number] Given 01/23/2016 Flu Vaccine NOS 70105 Given 05/28/2015 Tdap - Tetanus/Diptheria/Acellular Pertussis [id number] 62437 Given 02/07/2015 Fluzone High Dose 97632 Given 09/25/2014 Pneumococcal Conjugate Vaccine 13 Valent For [id number] Intramuscular Use 52591 Given 01/23/2014 Fluzone High Dose 68178 Given 10/10/2013 Zoster (Zostavax) [id number] Q2039 Given 03/22/2013 Flu Vaccine NOS 57136 Given 03/31/2012 Pneumonia Vaccine [id number] Q2038 Given 02/11/2012 Fluzone Vaccine 65820 Given 03/03/2011 Influenza Virus 3Yrs & Over [id number] 36016 Given 01/24/2010 Influenza Virus 3Yrs & Over [id number] 02869 Given 02/07/2009 Influenza Virus 3Yrs & Over 04807 Given 02/07/2009 Influenza Virus 3Yrs & Over [id number] 57935 Given 01/05/2007 Influenza Virus 3Yrs & Over [id number] 49996 Given 06/02/2005 Td (History By Patient) Vital Signs Date Vital Result Comment 04/24/2019 3:28pm Height 75 inches 6'3" Weight 375.00 lb stated Heart Rate 86 /min BP Systolic 136 mmHg BP Diastolic 90 mmHg Respiratory Rate 12 /min Body Temperature 97.8 F Pain Level 6 BMI (Body Mass Index) 46.9 kg/m2 02/23/2019 4:22pm Height 75 inches 6'3" Heart Rate 68 /min BP Systolic Sitting 99 mmHg BP Diastolic Sitting 65 mmHg Results Test Acquired Date Facility Test Result H/L Range Note CBC Auto 12/01/2018 [facility] White Blood 10.3 10^3/uL Normal 3.5-10.[address] [place] [address] [phone] Red Blood Count 3.88 10^6/uL Low 4.18-5.48 Hemoglobin 12.9 g/dL Low 14.0-18.0 Hematocrit 38 % Low 42-52 Mean Corpuscular Volume 99 fL High 80-94 Mean Corpuscular Hemoglobin 33 pg High 27-31 Mean Corpuscular HGB Conc 34 g/dL Normal 31-36 Red Cell Distribution Width 14 % Normal 10-15 Platelet Count 204 10^3/uL Normal 150-450 Mean Platelet Volume 8.3 fL Normal 7.4-10.4 Abs Neutrophils 7.1 10^3/uL Normal 1.5-7.7 Abs Lymphocytes 1.7 10^3/uL Normal 1.0-4.8 Abs Monocytes 1.1 10^3/uL High 0-0.8 Abs Eosinophils 0.3 10^3/uL Normal 0-0.6 Abs Basophils 0.1 10^3/uL Normal 0-0.2 Abs Nucleated RBC 0.0 10^3/uL Granulocyte % 68.5 % Lymphocyte % 16.9 % Monocyte % 11.2 % Eosinophil % 2.6 % Basophil % 0.8 % Nucleated Red Blood Cells % 0.0 Comp Metabolic Panel 12/01/2018 [facility] Sodium 131 mmol/L Low 135-[address] [place] [address] [phone] Potassium 3.9 mmol/L Normal 3.5-5.0 Chloride 96 mmol/L Low 101-111 Co2 Carbon Dioxide 26 mmol/L Normal 22-32 Anion Gap 9 mmol/L Normal 2-11 Glucose 79 mg/dL Normal 70-100 Blood Urea Nitrogen 29 mg/dL High 6-24 Creatinine 1.23 mg/dL High 0.67-1.17 BUN/Creatinine Ratio 23.6 High 8-20 Calcium 9.0 mg/dL Normal 8.6-10.3 Total Protein 6.5 g/dL Normal 6.4-8.9 Albumin 3.6 g/dL Normal 3.2-5.2 Globulin 2.9 g/dL Normal 2-4 Albumin/Globulin Ratio 1.2 Normal 1-3 Total Bilirubin 0.50 mg/dL Normal 0.2-1.0 Alkaline Phosphatase 106 U/L High 34-104 Alt 13 U/L Normal 7-52 Ast 19 U/L Normal 13-39 Egfr Non- 58.2 >60 Egfr 70.4 >60 1 Laboratory test 12/01/2018 [facility] Acetaminophen < 15 g/mL 2 finding [address] [place], [place] [id number] [phone] Alcohol 210 mg/dL High <10 Salicylate < 2.50 mg/dL <30 TSH (Thyroid Stim Horm) 2.36 mcIU/mL Normal 0.34-5.60 Urinalysis Profile 12/01/2018 [facility] Urine Color Yellow [address] [place] [address] [phone] Urine Appearance Clear Urine Specific [place] 1.012 Normal 1.010-1.030 Urine pH 5.0 Normal 5-9 Urine Urobilinogen Negative Negative Urine Ketones Negative Negative Urine Protein Negative Negative Urine Leukocytes Negative Negative Urine Blood Negative Negative * * Abnormal Negative 3 Urine Nitrite Negative Negative Urine Bilirubin Negative Negative Urine Glucose Negative Negative Urine Drug 12/01/2018 [facility] Urine None Detected None Detect SCR ED & [address] [facility] ER Amphetamine [place] [address] Screen [phone] Urine Barbiturates Screen None Detected None Detect Urine Benzodiazepine Screen Presumptive Posi <SEE NOTE> Abnormal None Detect 4 Urine Cannabinoids Screen None Detected None Detect Urine Cocaine Screen None Detected None Detect Urine Opiates Screen None Detected None Detect Urine Phencyclidine Screen None Detected None Detect 5 1 Because ethnic data is not always [...] 5 Kidney failure <15 (or dialysis) 2 Therapeutic concentration: <50 ug/mL Toxic concentration: >120 ug/mL 3 *Ascorbic acid is present which may interfere with detection of blood. 4 Presumptive Positive Presumptive positive results are unconfirmed. 5 The urine specimen was tested at the listed cutoffs: Drug class test level (ng/mL) Amphetamines 500 Barbiturates 200 Benzodiazepine metabolites 200 Cocaine metabolites 150 Cannabinoids 50 Opiates 300 Pcp 25 Specimen was received without chain of custody. Results should be used for medical purposes only. Procedures Date Code Description Status 01/17/2019 26005 Removal Devitalization Tissue Wound Less Than Equal 20 Completed Square CM 12/08/2018 48465 Removal Devitalization Tissue Wound Less Than Equal 20 Completed Square CM 01/25/2017 42801069 Colonoscopy Completed 07/15/2012 604011756 Diabetic Retinal Eye Exam Completed 11/23/2008 64056759 Colonoscopy Completed Medical Devices Description No Information Available Encounters Type Date Location Provider Dx Diagnosis Office Visit 02/02/2019 Wound Care Center Lazaro Casarez, George89.312 Pressure ulcer of 1:45p AT [facility] Rex right buttock, stage 2 E11.622 Type 2 diabetes mellitus with other skin ulcer Office Visit 01/13/2019 11:40a [facility] [place] E11.622 Type 2 diabetes Medicine - Christine Akins M.D. mellitus with other skin ulcer L89.312 Pressure ulcer of right buttock, stage 2 I10 Essential (primary) hypertension M14.672 Charcot's joint, left ankle and foot Office Visit 01/10/2019 12:45p Wound Care Lazaro Shah L89.312 Pressure ulcer Center AT [facility] Rex Casarez of right buttock, stage 2 E11.622 Type 2 diabetes mellitus with other skin ulcer M14.672 Charcot's joint, left ankle and foot Office Visit 12/15/2018 1:30p Wound Care Lazaro Shah I87.392 Chronic venous Center AT [facility] Rex Casarez hypertension w oth comp of l low extrem I87.312 Chronic venous hypertension w ulcer of l low extrem E11.621 Type 2 diabetes mellitus with foot ulcer M14.672 Charcot's joint, left ankle and foot Office Visit 11/24/2018 4:00p [place] M14.672 Charcot's joint, Medicine - Christine Akins M.D. 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 02/23/2019 I10 Essential (primary) hypertension Ramez Akins M.D. 02/23/2019 E11.622 Type 2 diabetes mellitus with other skin Ramez Akins M.D. ulcer 02/02/2019 L89.312 Pressure ulcer of right buttock, stage 2 Lazaro Casarez M.D. 02/02/2019 E11.622 Type 2 diabetes mellitus with other skin Lazaro Casarez M.D. ulcer 01/17/2019 L89.312 Pressure ulcer of right buttock, stage 2 Lazaro Casarez M.D. 01/13/2019 E11.622 Type 2 diabetes mellitus with other skin Ramez Akins M.D. ulcer 01/13/2019 L89.312 Pressure ulcer of right buttock, stage 2 Ramez Akins M.D. 01/13/2019 I10 Essential (primary) hypertension Ramez Akins M.D. 01/13/2019 M14.672 Charcot's joint, left ankle and foot Ramez Akins M.D. 01/10/2019 L89.312 Pressure ulcer of right buttock, stage 2 Lazaro Casarez M.D. 01/10/2019 E11.622 Type 2 diabetes mellitus with other skin Lazaro Casarez M.D. ulcer 01/10/2019 M14.672 Charcot's joint, left ankle and foot Lazaro Casarez M.D. 12/15/2018 I87.392 Chronic venous hypertension (idiopathic) Lazaro Casarez M.D. with other complications of left lower extremity 12/15/2018 I87.312 Chronic venous hypertension (idiopathic) Lazaro Casarez M.D. with ulcer of left lower extremity 12/15/2018 E11.621 Type 2 diabetes mellitus with foot ulcer Lazaro Casarez M.D. 12/15/2018 M14.672 Charcot's joint, left ankle and foot Lazaro Casarez M.D. 12/08/2018 I87.392 Chronic venous hypertension (idiopathic) Lazaro Casarez M.D. with other complications of left lower extremity 12/08/2018 I87.312 Chronic venous hypertension (idiopathic) Lazaro Casarez M.D. with ulcer of left lower extremity 12/08/2018 E11.621 Type 2 diabetes mellitus with foot ulcer Lazaro Casarez M.D. 12/08/2018 M14.672 Charcot's joint, left ankle and foot Lazaro Casarez M.D. 11/24/2018 M14.672 Charcot's joint, left ankle and foot Ramez Akins M.D. 11/24/2018 L97.429 Non-pressure chronic ulcer of left heel and Ramze Akins M.D. midfoot with unspecified severity 11/24/2018 I10 Essential (primary) hypertension Ramez Akins M.D. 11/24/2018 E11.610 Type 2 diabetes mellitus with diabetic Ramez Akins M.D. neuropathic arthropathy Plan of Treatment Future Appointment(s):08/14/2019 2:20 pm - [facility]14.672 Charcot's joint, left ankle and footReferral:Zack Rosario MD, Surgery,OrthopedicFollow up:Follow Up: after 2nd opinion Functional Status Description No Information Available Mental Status Description No Information Available Referrals Refer to Dr Reason for Referral Status Appt Date Zack Rosario MD Left ankle/foot Charcot Created [address] [place] [address] [phone] Vis[facility] Nurse [facility] for home assistive services and Sent [facility] leg dressing/stocking care [address] [place] [address] [phone]
--- OUTSIDE RECORDS SUMMARY | 2019-06-16 12:15 | XMS REPORT | Continuity of Care Document ---
:1950 External Reference #:[id number] Author Name Devin Hernandez M.D. Address [address] [place] [address] Care Team Providers Name Role Phone Ramez Akins MD - General Care Team Information Health And Physical Education Teacher Practice Problems Active Problems Provider Date Type 2 diabetes mellitus Devin Hernandez M.D. Onset: 09/12/2014 Incipient senile cataract Devin Hernandez M.D. Onset: 09/12/2014 Presbyopia Devin Hernandez M.D. Onset: 09/12/2014 Orbital cellulitis Devni Hernandez M.D. Onset: 01/31/2015 Social History Type Date Description Comments Sex Unknown ETOH Use Rarely consumes alcohol Tobacco Use Start: Unknown End: Unknown Patient is a former smoker Smoking Status Reviewed: 04/27/19 Patient is a former smoker Allergies, Adverse Reactions, Alerts Active Allergies Reaction Severity Comments Date Penicillin 09/12/2014 Sulfa Antibiotics 04/27/2019 Medications Active Medications SIG Qnty Indications Ordering Provider Date Valium take 1 tablet by 150tabs Devin Hernandez, 02/19/2017 5mg Tablets mouth every 4 M.D. hours up to five times a day -- maximum daily dose of 5 per day prm Atorvastatin Calcium Unknown 20mg Tablets Citalopram Unknown Hydrobromide 20mg Tablets Losartan Unknown Potassium/Hydrochloro thiazide 50-12.5mg Tablets Metoprolol Succinate Unknown ER 100mg Tablets ER 24HR Centrum Silver Ultra Unknown Mens Tablets Tamsulosin HCL Unknown 0.4mg Capsules Xarelto Unknown 20mg Tablets Immunizations Description No Information Available Vital Signs Date Vital Result Comment 04/27/2019 2:03pm Intraocular Pressure Right Eye 13 mmHg Intraocular Pressure Left Eye 14 mmHg 01/17/2018 2:27pm Intraocular Pressure Right Eye 15 mmHg Intraocular Pressure Left Eye 15 mmHg Results Description No Information Available Procedures Date Code Description Status 04/27/2019 87781 Refraction Completed 04/27/2019 06797 Eye Exam Est Comprehensive Completed Medical Devices Description No Information Available Encounters Description No Information Available Assessments Date Code Description Provider 04/27/2019 E11.9 Type 2 diabetes mellitus without complications Devin Hernandez M.D. 04/27/2019 H25.13 Age-related nuclear cataract, bilateral Devin Hernandez M.D. Plan of Treatment 04/27/2019 - Devin Hernandez M.D.E11.9 Type 2 diabetes mellitus without srlfbgapvlhqtC02.13 Age-related nuclear cataract, bilateralFollow up:1 yr Functional Status Description No Information Available Mental Status Description No Information Available Referrals Description No Information Available
--- NOTE | 2019-06-16 13:32 | UC ---
Skin Complaint HPI - HPI Summary HPI Summary: 69 yo male presents with LEFT foot wound. He tells me that his orthotic boot has been rubbing against the outer aspect of his left foot. Over the past 2 days has noticed a wound to that area. He has been applying a vaseline dressing , but is concerned for infection as his foot has been swollen. He has a hx of diabetes with toe amputation. He sees the wound clinic regularly - next appt is Wednesday. Has very little to no feeling in most of b/l feet. Denies fever. - History of Current Complaint Chief Complaint: UCSkin Time Seen by Provider: 06/16/19 13:32 Stated Complaint: FOOT ISSUE Hx Obtained From: Patient Onset/Duration: Sudden Onset Current Severity: None Pain Intensity: 0 - Allergy/Home Medications Allergies/Adverse Reactions: Allergies Allergy/AdvReac Type Severity Reaction Status Date / Time Sulfa (Sulfonamide Allergy Intermediate Hives Verified 06/16/19 12:33 Antibiotics) Penicillins AdvReac Intermediate GI Upset Verified 06/16/19 12:33 Home Medications: Home Medications Atorvastatin* [Lipitor 20 MG*] 20 mg PO BEDTIME 09/24/14 [History Confirmed 09/29] Citalopram TAB* [Celexa TAB*] 20 mg PO BEDTIME 09/24/14 [History Confirmed 06/15] Multivitamins/Minerals TAB* [Theragran/minerals TAB*] 1 tab PO BEDTIME 02/26/16 [History Confirmed 06/16/19] Losartan/HCTZ 100/25 (NF) [Hyzaar 100/25 (NF)] 1 tab PO BEDTIME 01/25/17 [ History Confirmed 06/16/19] Tamsulosin CAP* [Flomax CAP*] 0.4 mg PO BEDTIME cap 05/27/17 [Rx Confirmed 09/29] Acetaminophen TAB* [Tylenol TAB*] 650 mg PO Q4H PRN tab 01/01/18 [Rx Confirmed 06/16/19] Metoprolol Succinate XL TAB* [Toprol XL TAB*] 100 mg PO BEDTIME 09/28/18 [ History Confirmed 06/16/19] Rivaroxaban TAB(*) [Xarelto 15 mg(*)] 20 mg PO BEDTIME 09/28/18 [History Confirmed 06/16/19] Diazepam TAB(*) [Valium TAB(*)] 1 tab PO TID PRN 11/26/18 [History Confirmed 09/29] Cephalexin CAP* [Keflex CAP*] 500 mg PO TID #21 cap 06/16/19 [Rx] PMH/Surg Hx/FS Hx/Imm Hx - Additional Past Medical History Additional PMH: BPH Afib ARDS Endocrine History: Diabetes, Dyslipidemia Cardiovascular History: Hypertension Respiratory History: Asthma Psychological History: Anxiety, Depression Other History Of: Negative For: Anticoagulant Therapy - Surgical History Surgical History: Yes Surgery Procedure, Year, and Place: Three inguinal hernia repairs. Tonsillectomy. Lt FOOT - 5TH TOE AMPUTATED 04/2017. Rt LEG - TIB/FIB FRACTURE - W/ PINS - Family History Known Family History: Positive: Cardiac Disease - Father of [place] at age 52, Diabetes - Social History Lives: With Family Alcohol Use: Daily Alcohol Amount: 3-5 glasses Substance Use Type: None Smoking Status (MU): Former Smoker Type: Cigarettes Have You Smoked in the Last Year: No When Did the Patient Quit Smoking/Using Tobacco: 40 yrs ago - Immunization History Most Recent Influenza Vaccination: 12/23/17 Most Recent Pneumonia Vaccination: last admission Review of Systems All Other Systems Reviewed And Are Negative: No Constitutional: Positive: Negative Skin: Positive: Other - Wound left foot Respiratory: Positive: Negative Cardiovascular: Positive: Negative Neurovascular: Positive: Negative Musculoskeletal: Positive: Negative Neurological/Mental Status: Positive: Negative Psychological: Positive: Negative Physical Exam - Summary Physical Exam Summary: GENERAL: NAD. WDWN. No pain distress. SKIN: LEFT FOOT: Lateral aspect overlying base of 5th MT with 1.0cm area of partial thickness abrasion. NTTP. No active drainage. Faint erythema. CHEST: No accessory muscle use. Breathing comfortably and in no distress. CV: Pulses intact. Cap refill <2seconds NEURO: Alert. PSYCH: Age appropriate behavior. Triage Information Reviewed: Yes Vital Signs: Initial Vital Signs Temp 98.1 F 06/16/19 12:35 Pulse 69 06/16/19 12:35 Resp 18 06/16/19 12:35 BP 132/72 06/16/19 12:35 Pulse Ox 99 06/16/19 12:35 Vital Signs Reviewed: Yes Course/Dx - Course Course Of Treatment: Abrasion to left foot. Given his extensive hx will rx for keflex and bactroban. Daily dressing changes. Keep appt with wound clinic on wednesday. - Diagnoses Provider Diagnosis: Wound of left foot Discharge ED - Sign-Out/Discharge Documenting (check all that apply): Patient Departure All imaging exams completed and their final reports reviewed: No Studies - Discharge Plan Condition: Stable Disposition: HOME Prescriptions: Cephalexin CAP* [Keflex CAP*] 500 mg PO TID #21 cap Patient Education Materials: Acute Wound Care (ED) Referrals: Ramez Akins MD [Primary Care Provider] - Additional Instructions: If you develop a fever, shortness of breath, chest pain, new or worsening symptoms - please call your PCP or go to the ED immediately. Rest and elevate your foot as much as possible Continue your compression stockings Take the antibiotic as directed and change the dressing daily applying a small amount of BACTROBAN ointment Keep your appointment with the wound clinic for wednesday for a recheck - Billing Disposition and Condition Condition: STABLE Disposition: Home
[2019-06-16] MEDS ORDERED: Mupirocin 2% OINT* TUBE TOPICAL ONE (14:00)
[2019-06-16 15:02] VITALS: BP 132/82
== END 2019-06-16 14:50 | disposition home or self-care (01) ==
LOC: UCEAST 12:09
DX: S90.922A Unspecified superficial injury of left foot, initial encounter (principal); I48.91 Unspecified atrial fibrillation; N40.0 Benign prostatic hyperplasia without lower urinary tract symptoms; Z88.2 Allergy status to sulfonamides; Z88.0 Allergy status to penicillin; Z87.891 Personal history of nicotine dependence; X58.XXXA Exposure to other specified factors, initial encounter; Y92.9 Unspecified place or not applicable
CPT/HCPCS: 87070; 87077; 87205; 99202; G0463

== ENCOUNTER 2019-07-21 11:11 | Inpatient (IN) | payer MEDICARE, OTHER ==
--- OUTSIDE RECORDS SUMMARY | 2019-07-21 12:10 | XMS REPORT | Continuity of Care Document ---
:1950 External Reference #:[id number] Author Name Dima Spann MD (transmitted by agent of provider Kristie Novoa) Address [address] [place] [address] [place] [address] Care Team Providers Name Role Phone Ramez Akins III, MD - Internal Care Team Information Patent Lawyer Medicine [facility] - Sleep Disorder Care Team Information Patent Lawyer [phone] Diagnostic Roger Barahona DPM - Foot Surgery Care Team Information Patent Lawyer [phone] Wound Clinic - Clinic/Center Care Team Information Patent Lawyer [phone] Visiting Nurse Services [facility] - Care Team Information Patent Lawyer [facility] Zack Kendrick MD - Care Team Information Patent Lawyer [phone] Orthopaedic Surgery Problems Active Problems Provider Date Impaired fasting [...] symptoms Diazepam 1 by mouth three 20tabs Ramez Akins, 09/01/2018 5mg Tablets times a day as M.D. needed. must use cpap if taking this at night Furosemide 1/2 by mouth 45tabs R60.0 Steffen Garcia, 03/21/2018 20mg Tablets every [...] Citalopram Take 1 Tablet By 90tabs Susan Black, 05/17/2007 Hydrobromide Mouth Daily M.D. 20mg Tablets Multivitamins 1 PO qd Mikhail Davidson MD Tablets Tamsulosin HCL 1 by mouth every Unknown 0.4mg day 1/2 hour Capsules after dinner Acetaminophen 2 every 4 hours Unknown 325mg as needed for Tablets pain Spironolactone 1/2 by mouth 45tabs Steffen Garcia, 25mg every day DO FACC Tablets Immunizations CPT Code Status Date Vaccine Lot # [id number] Given 01/23/2016 Flu Vaccine NOS [id number] Given 05/28/2015 Tdap - Tetanus/Diptheria/Acellular Pertussis [id number] 08045 Given 02/07/2015 Fluzone High Dose 30118 Given 09/25/2014 Pneumococcal Conjugate Vaccine 13 Valent For [id number] Intramuscular Use 63768 Given 01/23/2014 Fluzone High Dose 10418 Given 10/10/2013 Zoster (Zostavax) [id number] Q2039 Given 03/22/2013 Flu Vaccine NOS 23777 Given 03/31/2012 Pneumonia Vaccine [id number] Q2038 Given 02/11/2012 Fluzone Vaccine 96923 Given 03/03/2011 Influenza Virus 3Yrs & Over [id number] 50535 Given 01/24/2010 Influenza Virus 3Yrs & Over [id number] 00913 Given 02/07/2009 Influenza Virus 3Yrs & Over 71158 Given 02/07/2009 Influenza Virus 3Yrs & Over [id number] 64104 Given 01/05/2007 Influenza Virus 3Yrs & Over [id number] 58148 Given 06/02/2005 Td (History By Patient) Vital [...] Date Facility Test Result H/L Range Note Wound 06/16/2019 [facility] Wound/Misc SEE RESULT 1, 2 Culture/Sensi [address] [place] [address] Stain [phone] 1 [id number] 2 SEE RESULT BELOW Name: ALBIN LUEVANO : [address]: Janine Quigley MD Acct: [id number] Unit: [id number] AGE: 69 Location: [facility] Re06/16/19 SEX: M Status: DEP ER SPEC: [id number] JOHNNY: 06/16/19-1344 [facility] DR: Manny HONG REQ: [id number] RECD: 06/16/19-160 STATUS: HILDA ALEXANDER DR: Janine Akins III, MD _ SOURCE: ANKLE LEFT SPDESC: ORDERED: Culture Stain COMMENTS: [id number] Procedure Result Reported Site Wound/Misc Gram Stain Final 06/16/19- 1639 ML 1+ Epithelial Cells No Neutrophils Observed No Organisms Seen Wound/Misc Culture Final 06/19/19- 1244 ML Organism 1 NORMAL ARCENIO Quantity 1+ * ML - Main Lab . END OF REPORT DEPARTMENT OF PATHOLOGY, [address] [place] [address] Albin Mario M.D. Director [facility] # [id number] Procedures Date Code Description Status 04/27/2019 991908875 Diabetic Retinal Eye Exam Completed 01/17/2019 25885 Removal Devitalization Tissue Wound Less Than Equal 20 Completed Square CM 01/25/2017 53161899 Colonoscopy Completed 07/15/2012 792087183 Diabetic Retinal Eye Exam Completed 11/23/2008 67278047 Colonoscopy Completed Medical Devices Description No Information Available Encounters Type Date Location Provider Dx Diagnosis Office Visit 06/28/2019 W[facility] Dima Vazquez89.522 Pressure ulcer of 11:00a AT [facility] MD Maria Ines left ankle, stage 2 E11.621 Type 2 diabetes mellitus with foot ulcer I87.302 Chronic venous hypertension w/o comp of l low extrem L97.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 Office Visit 04/24/2019 2:45p Anitra Buckley, M14.672 [facility] joint, left [place] ankle and foot M25.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, left ankle Office Visit 02/23/2019 4:20p [facility] [address] Internal Ramez Lopez R20.8 Other disturbances Medicine - Rex Akins of skin sensation Ccmob I10 Essential (primary) hypertension E11.622 Type 2 diabetes mellitus with other skin ulcer Office Visit 02/02/2019 1:45p Wound Care Lazaro Shah L89.312 Pressure ulcer Center AT [facility] Rex Casarez of right buttock, stage 2 E11.622 Type 2 diabetes mellitus with other skin ulcer Office Visit 01/13/2019 11:40a [facility] [address] Internal Ramez Lopez E11.622 Type 2 diabetes Medicine - Christine Akins M.D. mellitus with other skin ulcer L89.312 Pressure ulcer of right buttock, stage 2 I10 Essential (primary) hypertension M14.672 [facility], left ankle and foot Office Visit 01/10/2019 12:45p Wound Care Lazaro Shah L89.312 Pressure ulcer Center AT [facility] Rex Casarez of right buttock, stage 2 E11.622 Type 2 diabetes mellitus with other skin ulcer M14.672 [facility], left ankle and foot Assessments Date Code Description Provider 06/28/2019 L89.522 Pressure ulcer of left ankle, stage 2 Dima Spann MD 06/28/2019 E11.621 Type 2 diabetes mellitus with foot ulcer Dima Spann MD 06/28/2019 I87.302 Chronic venous hypertension (idiopathic) Dima Spann MD without complications of left lower extremity 06/28/2019 L97.329 Non-pressure chronic ulcer of left ankle Dima Spann MD with unspecified severity 04/24/2019 M14.672 [facility], left ankle and foot Marlon Buckley MD 04/24/2019 M25.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, left ankle Marlon Buckley MD 02/23/2019 R20.8 Other disturbances [...] left ankle and foot Lazaro Casarez M.D. Plan of Treatment Future Appointment(s):08/30/2019 2:00 pm - Mayela Beckford NP at [facility] [address]08/14/2019 2:20 pm - Ramez Akins M.D. at [facility] [address] [facility] - Marlon Buckley, CLARY14.672 [facility], left ankle and footReferral:Zack Rosario MD, Surgery, OrthopedicFollow up:Follow Up: after 2nd axgweqbF06.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, left ankle Functional Status Description No Information Available Mental Status Description No Information Available Referrals Refer to Reason for Referral Status Appt Date Zack Rosario MD Left ankle/foot [facility] [address] [place] [address] [phone]
[2019-07-21] MEDS ORDERED: Acetaminophen TAB* 325 MG PO PRN (14:03)
[2019-07-21 15:13] LABS: Hematocrit 40 % (42-52); Hemoglobin 13.7 g/dL (14.0-18.0); Mean Corpuscular HGB Conc 34 g/dL (31-36); Mean Corpuscular Hemoglobin 33 pg (27-31); Mean Corpuscular Volume 98 fL (80-94); Mean Platelet Volume 9.7 fL (7.4-10.4); Platelet Count 203 10^3/uL (150-450); Red Blood Count 4.12 10^6 /uL (4.18-5.48); Red Cell Distribution Width 14 % (10-15); White Blood Count 11.6 10^3/uL (3.5-10.8)
[2019-07-21 15:27] LABS: ABS Basophils 0.1 10^3/ul (0-0.2); ABS Eosinophils 0.1 10^3/ul (0-0.6); ABS Lymphocytes 1.1 10^3/ul (1.0-4.8); ABS Monocytes 1.8 10^3/ul (0-0.8); ABS Neutrophils 8.5 10^3/ul (1.5-7.7); Eosinophil % 1.3 %; Lymphocyte % 9.3 %
[2019-07-21 15:29] LABS: Albumin 3.6 g/dL (3.2-5.2); Albumin/Globulin Ratio 1.1 (1-3); BUN/Creatinine Ratio 19.1 (8-20); C Reactive Protein 51.52 mg/L (<8.01); Calcium 9.1 mg/dL (8.6-10.3); EGFR Non-African American 84.3 (>60); Globulin 3.3 g/dL (2-4); Potassium 4.1 mmol/L (3.5-5.0); Total Protein 6.9 g/dL (6.4-8.9)
--- NOTE | 2019-07-21 15:35 | HP ---
CC: Dr. Akins* HISTORY AND PHYSICAL: DATE OF ADMISSION: 07/21/19 TIME OF EVALUATION: 1400. PROVIDER: Rosalba Whiteside NP PRIMARY CARE PROVIDER: Dr. Ramez Akins. ATTENDING PHYSICIAN WHILE IN THE HOSPITAL: Dr. Jose R Pereira* (dictated by Rosalba Whiteside NP). CHIEF COMPLAINT: Left foot wound. HISTORY OF PRESENT ILLNESS: Mr. Luevano is a 69-year-old male with a past medical history significant for hypertension; morbid obesity; anxiety; BPH; history of atrial fibrillation, on chronic anticoagulation with Xarelto; history of right bundle branch block; obstructive sleep apnea; type 2 diabetes, reported by the patient controlled without medication, who presented to [facility] as a direct admission from the wound care center due to increased redness, swelling , and pain to an open wound on his left foot. The patient reports that he was fitted for a new pair of boots approximately 3 months ago. He reports at that time he wore the boots for 7 to 10 days. They started rubbing on the side of his foot/ankle on the left lateral side and he reports that he noted that an open wound was starting. He reports approximately 3 weeks ago, the wound was opened and draining. He started going to the wound care center and has been followed by them. He was seen at the wound care center 2 days ago on Wednesday , 07/19/19. At that time, there was increased redness and they took a culture of the wound, which grew pseudomonas. On Wednesday, he was started on Keflex p.o. t.i.d. The patient reports that he continues to have increased redness and increased pain to the left foot, so he was sent for a direct admission for IV antibiotics. The patient denies any fevers or chills at home. Denies any chest pain, shortness of breath, hemoptysis, cough, or congestion. He denies any nausea or vomiting. He does report a mild amount of diarrhea after starting his oral antibiotics. He denies any calf tenderness. He does report some intermittent pain to the left foot, but does report that it is better since having his fitted boot removed. He denies any urinary frequency, urgency , or pain with urination. Denies any weakness. Due to the patient's increased redness, pain, and swelling to the left foot, Hospital Medicine was asked to admit the patient for IV antibiotics. PAST MEDICAL HISTORY: Significant for: 1. Hypertension. 2. Morbid obesity. 3. Anxiety. 4. BPH. 5. Atrial fibrillation, on anticoagulation with Xarelto. 6. Obstructive sleep apnea. 7. History of right bundle branch block. 8. History of osteomyelitis, status post amputation of the left fifth toe in 2018. 9. Type 2 diabetes. Reports last A1c was 5.4 on 07/19/19. PAST SURGICAL HISTORY: 1. Tonsillectomy. 2. Inguinal hernia repair x3. 3. Ankle surgery. 4. Left fifth toe amputation. HOME MEDICATIONS: Include: 1. Losartan/hydrochlorothiazide 100/25 one tablet p.o. daily. 2. Xarelto 20 mg p.o. daily. 3. Atorvastatin 20 mg p.o. daily. 4. Metoprolol 100 mg p.o. daily. 5. Valium 5 mg t.i.d. as needed for anxiety. 6. Citalopram 20 mg p.o. daily. 7. Multivitamin 1 tablet p.o. daily. 8. Tamsulosin 0.4 mg p.o. daily. 9. Currently taking Keflex 500 mg p.o. t.i.d. 10. Acetaminophen 650 mg every 4 hours as needed for pain. ALLERGIES: To SULFA and PENICILLIN. PENICILLIN, adverse reaction, causes GI upset; SULFA, hives. FAMILY HISTORY: Mother at the age of 59 from colon cancer. Father from an [place] at the age of 52. SOCIAL HISTORY: The patient lives with his , Taylor. He currently uses a wheelchair for mobility. He has a history of smoking, quit 40 years ago. He does report that he drinks 2 to 3 glasses of wine 4 days a week. He is a full code. PHYSICAL EXAMINATION GENERAL: At this time, the patient is alert and oriented, resting in his hospital bed on short-stay. He is in no acute distress. VITAL SIGNS: Blood pressure was 135/79, heart rate 88, respirations 20, O2 saturation 96%, temperature was 98.1. HEENT: Head is atraumatic, normocephalic. Eyes: EOMs are intact. Mucous membranes are moist. NECK: Supple. LUNGS: Clear to auscultation bilaterally. No wheezes, rales, or rhonchi. CARDIAC: S1, S2. Irregular rate and rhythm. No rubs or gallops. ABDOMEN: Obese, soft, nontender. Bowel sounds are present x4. EXTREMITIES: He is able to move all 4 extremities. His right lower extremity is without any open areas. He has a small open wound noted to his left lateral foot with surrounding erythema, warm to touch. NEUROLOGIC: He is awake, alert, oriented x3. No gross focal deficits are noted. LABORATORY DATA: Pending. He did have a wound culture on 07/19/19 that was positive for pseudomonas. ASSESSMENT AND PLAN: Mr. Luevano is a 69-year-old male with a past medical history significant for atrial fibrillation, on chronic anticoagulation; hypertension; hyperlipidemia; benign prostatic hypertrophy, who presented to [facility] from the wound care center for IV antibiotics for left foot ulceration with poor healing. Our plan is as follows: 1. Left foot wound. The patient does have an open ulceration to his left lateral foot with a culture that was positive for pseudomonas. He was started on Keflex as an outpatient, which was resistant to treating pseudomonas. I will place him on cefepime 2 g q.12 hours. I will get a CBC, CMP, ESR, and CRP , as well as blood cultures. Should his CBC come back with an excessively elevated white count, we will consider imaging of his left foot to rule out osteomyelitis. We could consider consult to Infectious Disease for recommendations on antibiotic management. 2. Atrial fibrillation. The patient has a history of chronic atrial fibrillation for which he takes metoprolol and is on Xarelto. We will continue these medications during this hospitalization. His rate is currently controlled. He has a heart rate of 88. 3. Hypertension. He will continue on losartan and metoprolol as previously prescribed. 4. Anxiety. He can continue Valium and citalopram as previously prescribed. 5. Benign prostatic hypertrophy. He will continue on tamsulosin. 6. Obstructive sleep apnea. The patient wears CPAP at home. I will continue his CPAP with hospital equipment during this hospitalization. 7. FEN: He can have a regular diet. 8. DVT prophylaxis: He scores high. He will continue on Xarelto. 9. Code status: He is a full code. TIME SPENT: Time spent on this admission was 60 minutes, greater than half that time was spent at the bedside reviewing events leading thus far to his hospitalization, performing physical exam, and reviewing my plan of care. I have discussed this with my attending, Dr. Jose R Pereira; he is in agreement with my plan. ROSALBA WHITESIDE, SHANTELL [id number]/CPS #: [id number] JASMEET
[2019-07-21] MEDS: Cefepime 2 GM in Dextrose(*) 2 GM/50 ML BAG IV SCH (15:40)
[2019-07-21 17:35] LABS: Erythrocyte Sed Rate 57 mm/Hr (0-19)
[2019-07-21] MEDS: Atorvastatin* 20 MG TAB PO SCH (21:13)
[2019-07-21] MEDS: Losartan TAB* 25 MG PO SCH (21:13)
[2019-07-21] MEDS: Multivitamins/Minerals TAB PO SCH (21:13)
[2019-07-21] MEDS: Rivaroxaban TAB(*) 20 MG TAB PO SCH (21:14)
[2019-07-21] MEDS: Tamsulosin CAP* 0.4 MG PO SCH (21:14)
[2019-07-21] MEDS: Hydrochlorothiazide TAB* 25 MG PO SCH (21:14)
[2019-07-21] MEDS: Metoprolol Succinate XL TAB* 100 MG PO SCH (21:14)
[2019-07-21] MEDS: Diazepam TAB(*) 5 MG PO PRN (21:18)
[2019-07-21] MEDS: Melatonin 3 MG TAB PO PRN (23:06)
[2019-07-22] MEDS: Cefepime 2 GM in Dextrose(*) 2 GM/50 ML BAG IV SCH (03:10)
[2019-07-22 06:57] LABS: ABS Eosinophils 0.3 10^3/ul (0-0.6); ABS Lymphocytes 1.2 10^3/ul (1.0-4.8); ABS Monocytes 1.5 10^3/ul (0-0.8); ABS Neutrophils 7.4 10^3/ul (1.5-7.7); Eosinophil % 2.7 %; Hematocrit 37 % (42-52); Hemoglobin 12.9 g/dL (14.0-18.0); Lymphocyte % 11.8 %; Mean Corpuscular HGB Conc 35 g/dL (31-36); Mean Corpuscular Hemoglobin 34 pg (27-31); Mean Corpuscular Volume 98 fL (80-94); Nucleated Red Blood Cells % 0.1; Platelet Count 202 10^3/uL (150-450); Red Cell Distribution Width 14 % (10-15); White Blood Count 10.4 10^3/uL (3.5-10.8)
[2019-07-22 07:15] LABS: BUN/Creatinine Ratio 18.7 (8-20); Calcium 9.1 mg/dL (8.6-10.3); EGFR African American 99.4 (>60); EGFR Non-African American 82.1 (>60); Potassium 3.7 mmol/L (3.5-5.0)
--- NOTE | 2019-07-22 14:01 | PN ---
Subjective Date of Service: 07/22/19 Interval History: Mr. Luevano is feeling well today. He offers no complaints. He thinks the redness to his LLE has improved since yesterday. Edema remains about the same. He has not been able to ambulate on the affected foot. Denies CP, SOB, cough. No concerns from nursing. Family History: Unchanged from Admission Social History: Unchanged from Admission Past Medical History: Unchanged from Admission Objective Active Medications: Acetaminophen (Tylenol Tab*) 650 mg PO Q4H PRN MILD PAIN or TEMP > 100.4 Atorvastatin Calcium (Lipitor*) 20 mg PO BEDTIME HODAN Diazepam (Valium Tab(*)) 5 mg PO TID PRN ANXIETY Hydrochlorothiazide (Hydrodiuril Tab*) 25 mg PO BEDTIME HODAN Cefepime HCl (Maxipime 2 Gm In Dextrose Duplex (*)) 2 gm in 50 mls @ 100 mls/ hr IV Q12H HODAN Cefepime HCl 2 gm/ Sodium (Chloride) 50 mls @ 100 mls/hr IVPB Q12H HODAN Losartan Potassium (Cozaar Tab*) 100 mg PO BEDTIME HODAN Melatonin (Melatonin) 3 mg PO BEDTIME PRN SLEEP Metoprolol Succinate (Toprol Xl Tab*) 100 mg PO BEDTIME HODAN Multivitamins/Minerals (Theragran/Minerals Tab*) 1 tab PO BEDTIME HODAN Rivaroxaban (Xarelto(*)) 20 mg PO BEDTIME HODAN Tamsulosin HCl (Flomax Cap*) 0.4 mg PO BEDTIME HODAN Vital Signs - 8 hr 07/22/19 07/22/19 07/22/19 07:00 08:00 11:00 Temperature 97.2 F 97.8 F Pulse Rate 87 86 Respiratory 20 20 16 Rate Blood Pressure 100/70 108/64 (mmHg) O2 Sat by Pulse 97 96 Oximetry Oxygen Devices in Use Now: None Appearance: Elderly male sitting in bed in NAD Ears/Nose/Mouth/Throat: Mucous Membranes Moist Neck: NL Appearance and Movements; NL JVP, Trachea Midline Respiratory: Symmetrical Chest Expansion and Respiratory Effort, Clear to Auscultation Cardiovascular: NL Sounds; No Murmurs; No JVD Extremities: - - +2 pitting LLE Skin: - - Small open wound left lateral ankle Neurological: Alert and Oriented x 3, NL Sensation Lines/Tubes/Other Access: Clean, Dry and Intact Peripheral IV Nutrition: Taking PO's Result Diagrams: 07/22/19 06:18 07/22/19 06:18 Assess/Plan/Problems-Billing Assessment: Mr. Luevano is a 69 yo M with PMH of HTN, obesity, anxiety, BPH, afib, MOOKIE, RBBB, DM2, osteomyelitis; directly admitted to the hospital from the Wound Clinic d/t infected RLE ankle wound. - Patient Problems (1) Wound of left ankle Code(s): S91.002A - UNSPECIFIED OPEN WOUND, LEFT ANKLE, INITIAL ENCOUNTER Comment: - Secondary to ill-fitting boot - Follows at the Wound Clinic - Wound culture growing Pseudomonas - Continue cefepime (2) Atrial fibrillation Code(s): I48.91 - UNSPECIFIED ATRIAL FIBRILLATION Comment: - Rate controlled - Continue metoprolol, Xarelto (3) HTN (hypertension) Code(s): I10 - ESSENTIAL (PRIMARY) HYPERTENSION Comment: - Normotensive - Continue lisinopril, HCTZ (4) HLD (hyperlipidemia) Code(s): E78.5 - HYPERLIPIDEMIA, UNSPECIFIED Comment: - Continue atorvastatin (5) MOOKIE (obstructive sleep apnea) Code(s): G47.33 - OBSTRUCTIVE SLEEP APNEA (ADULT) (PEDIATRIC) Comment: - CPAP (6) BPH (benign prostatic hyperplasia) Code(s): N40.0 - BENIGN PROSTATIC HYPERPLASIA WITHOUT LOWER URINRY TRACT SYMP Comment: - Continue tamsulosin (7) DVT prophylaxis Comment: - Xarelto (8) Full code status Code(s): Z78.9 - OTHER SPECIFIED HEALTH STATUS Comment: Status and Disposition: Inpatient. Anticipate d/c home when medically stable, likely 1-2 more days. Attending: Jose R Pereira
[2019-07-22] MEDS: Cefepime(*) 2 GM in NS 0.9% 50 ML* 50 ML IVPB SCH (15:19)
[2019-07-22] MEDS: Metoprolol Succinate XL TAB* 100 MG PO SCH (21:44)
[2019-07-22] MEDS: Multivitamins/Minerals TAB PO SCH (21:44)
[2019-07-22] MEDS: Rivaroxaban TAB(*) 20 MG TAB PO SCH (21:45)
[2019-07-22] MEDS: Losartan TAB* 25 MG PO SCH (21:45)
[2019-07-22] MEDS: Hydrochlorothiazide TAB* 25 MG PO SCH (21:45)
[2019-07-22] MEDS: Atorvastatin* 20 MG TAB PO SCH (21:45)
[2019-07-22] MEDS: Tamsulosin CAP* 0.4 MG PO SCH (21:45)
[2019-07-23] MEDS: Melatonin 3 MG TAB PO PRN (01:49)
[2019-07-23] MEDS: Diazepam TAB(*) 5 MG PO PRN (01:49)
[2019-07-23] MEDS: Cefepime(*) 2 GM in NS 0.9% 50 ML* 50 ML IVPB SCH ×2 (02:55→16:32)
[2019-07-23 05:34] LABS: ABS Basophils 0.1 10^3/ul (0-0.2); ABS Eosinophils 0.4 10^3/ul (0-0.6); ABS Lymphocytes 1.4 10^3/ul (1.0-4.8); ABS Monocytes 1.1 10^3/ul (0-0.8); ABS Neutrophils 5.8 10^3/ul (1.5-7.7); Eosinophil % 4.6 %; Hematocrit 38 % (42-52); Lymphocyte % 16.2 %; Mean Corpuscular HGB Conc 34 g/dL (31-36); Mean Corpuscular Hemoglobin 34 pg (27-31); Mean Corpuscular Volume 98 fL (80-94); Mean Platelet Volume 9.2 fL (7.4-10.4); Nucleated Red Blood Cells % 0.1; Platelet Count 194 10^3/uL (150-450); Red Blood Count 3.88 10^6 /uL (4.18-5.48); Red Cell Distribution Width 14 % (10-15); White Blood Count 8.7 10^3/uL (3.5-10.8)
[2019-07-23 05:51] LABS: BUN/Creatinine Ratio 17.6 (8-20); EGFR African American 99.4 (>60); EGFR Non-African American 82.1 (>60); Potassium 4.1 mmol/L (3.5-5.0)
--- NOTE | 2019-07-23 11:24 | PN ---
Subjective Date of Service: 07/23/19 Interval History: Mr. Luevano is feeling well this morning. He offers no complaints. He does have a new wound to his dorsal left foot which from overnight when he scratched his foot on the bed frame. Denies LLE pain. He thinks the redness is still improving. Denies CP, SOB, cough. No concerns from nursing. Family History: Unchanged from Admission Social History: Unchanged from Admission Past Medical History: Unchanged from Admission Objective Active Medications: Acetaminophen (Tylenol Tab*) 650 mg PO Q4H PRN MILD PAIN or TEMP > 100.4 Atorvastatin Calcium (Lipitor*) 20 mg PO BEDTIME HODAN Diazepam (Valium Tab(*)) 5 mg PO TID PRN ANXIETY Hydrochlorothiazide (Hydrodiuril Tab*) 25 mg PO BEDTIME HODAN Cefepime HCl 2 gm/ Sodium (Chloride) 50 mls @ 100 mls/hr IVPB Q12H HODAN Losartan Potassium (Cozaar Tab*) 100 mg PO BEDTIME HODAN Melatonin (Melatonin) 3 mg PO BEDTIME PRN SLEEP Metoprolol Succinate (Toprol Xl Tab*) 100 mg PO BEDTIME HODAN Multivitamins/Minerals (Theragran/Minerals Tab*) 1 tab PO BEDTIME HODAN Rivaroxaban (Xarelto(*)) 20 mg PO BEDTIME HODAN Tamsulosin HCl (Flomax Cap*) 0.4 mg PO BEDTIME HODAN Vital Signs - 8 hr 07/23/19 07/23/19 07/23/19 03:53 07:00 08:00 Temperature 98.1 F Pulse Rate 74 Respiratory 18 18 18 Rate Blood Pressure 131/83 (mmHg) O2 Sat by Pulse 98 Oximetry Oxygen Devices in Use Now: None Appearance: Elderly male lying in bed in NAD Ears/Nose/Mouth/Throat: Mucous Membranes Moist Neck: NL Appearance and Movements; NL JVP, Trachea Midline Respiratory: Symmetrical Chest Expansion and Respiratory Effort, Clear to Auscultation Cardiovascular: NL Sounds; No Murmurs; No JVD Extremities: - - +2 pitting LLE Skin: - - Open wound left lateral ankle and a few small abrasions to left dorsal foot Neurological: Alert and Oriented x 3 Lines/Tubes/Other Access: Clean, Dry and Intact Peripheral IV Nutrition: Taking PO's Result Diagrams: 07/23/19 05:07 07/23/19 05:07 Assess/Plan/Problems-Billing Assessment: Mr. Luevano is a 69 yo M with PMH of HTN, obesity, anxiety, BPH, afib, MOOKIE, RBBB, DM2, osteomyelitis; directly admitted to the hospital from the Wound Clinic d/t infected RLE ankle wound. - Patient Problems (1) Wound of left ankle Code(s): S91.002A - UNSPECIFIED OPEN WOUND, LEFT ANKLE, INITIAL ENCOUNTER Comment: - Secondary to ill-fitting boot - Follows at the Wound Clinic - Wound culture growing Pseudomonas - MRI tomorrow to r/o osteo - Continue cefepime (2) Atrial fibrillation Code(s): I48.91 - UNSPECIFIED ATRIAL FIBRILLATION Comment: - Rate controlled - Continue metoprolol, Xarelto (3) HTN (hypertension) Code(s): I10 - ESSENTIAL (PRIMARY) HYPERTENSION Comment: - Normotensive - Continue lisinopril, HCTZ (4) HLD (hyperlipidemia) Code(s): E78.5 - HYPERLIPIDEMIA, UNSPECIFIED Comment: - Continue atorvastatin (5) MOOKIE (obstructive sleep apnea) Code(s): G47.33 - OBSTRUCTIVE SLEEP APNEA (ADULT) (PEDIATRIC) Comment: - CPAP (6) BPH (benign prostatic hyperplasia) Code(s): N40.0 - BENIGN PROSTATIC HYPERPLASIA WITHOUT LOWER URINRY TRACT SYMP Comment: - Continue tamsulosin (7) DVT prophylaxis Comment: - Xarelto (8) Full code status Code(s): Z78.9 - OTHER SPECIFIED HEALTH STATUS Comment: Status and Disposition: Inpatient. Anticipate d/c home when medically stable, likely tomorrow if MRI is negative. Attending: Bryn Barnhart MD
[2019-07-23] MEDS: Metoprolol Succinate XL TAB* 100 MG PO SCH (20:14)
[2019-07-23] MEDS: Multivitamins/Minerals TAB PO SCH (20:15)
[2019-07-23] MEDS: Rivaroxaban TAB(*) 20 MG TAB PO SCH (20:15)
[2019-07-23] MEDS: Atorvastatin* 20 MG TAB PO SCH (20:15)
[2019-07-23] MEDS: Losartan TAB* 25 MG PO SCH (20:15)
[2019-07-23] MEDS: Hydrochlorothiazide TAB* 25 MG PO SCH (20:15)
[2019-07-23] MEDS: Tamsulosin CAP* 0.4 MG PO SCH (20:15)
[2019-07-24] MEDS: Melatonin 3 MG TAB PO PRN (00:34)
[2019-07-24] MEDS: Diazepam TAB(*) 5 MG PO PRN (00:34)
[2019-07-24] MEDS: Cefepime(*) 2 GM in NS 0.9% 50 ML* 50 ML IVPB SCH ×2 (04:09→15:40)
--- NOTE | 2019-07-24 12:40 | PN ---
Subjective Date of Service: 07/24/19 Interval History: Mr. Luevano is feeling well this morning. He offers no complaints. Slept well overnight. Good appetite. Denies CP, SOB, cough. He thinks the redness in his left ankle continues to improve. No concerns from nursing. Family History: Unchanged from Admission Social History: Unchanged from Admission Past Medical History: Unchanged from Admission Objective Active Medications: Acetaminophen (Tylenol Tab*) 650 mg PO Q4H PRN MILD PAIN or TEMP > 100.4 Atorvastatin Calcium (Lipitor*) 20 mg PO BEDTIME HODAN Diazepam (Valium Tab(*)) 5 mg PO TID PRN ANXIETY Hydrochlorothiazide (Hydrodiuril Tab*) 25 mg PO BEDTIME HODAN Cefepime HCl 2 gm/ Sodium (Chloride) 50 mls @ 100 mls/hr IVPB Q12H HODAN Losartan Potassium (Cozaar Tab*) 100 mg PO BEDTIME HODAN Melatonin (Melatonin) 3 mg PO BEDTIME PRN SLEEP Metoprolol Succinate (Toprol Xl Tab*) 100 mg PO BEDTIME HODAN Multivitamins/Minerals (Theragran/Minerals Tab*) 1 tab PO BEDTIME HODAN Rivaroxaban (Xarelto(*)) 20 mg PO BEDTIME HODAN Tamsulosin HCl (Flomax Cap*) 0.4 mg PO BEDTIME HODAN Vital Signs - 8 hr 07/24/19 07/24/19 07/24/19 07:35 08:00 12:00 Temperature 97.8 F 98.9 F Pulse Rate 84 77 Respiratory 18 16 16 Rate Blood Pressure 124/89 112/58 (mmHg) O2 Sat by Pulse 96 96 Oximetry Oxygen Devices in Use Now: None Appearance: Elderly male lying in bed in NAD Ears/Nose/Mouth/Throat: Mucous Membranes Moist Neck: NL Appearance and Movements; NL JVP, Trachea Midline Respiratory: Symmetrical Chest Expansion and Respiratory Effort, Clear to Auscultation Cardiovascular: NL Sounds; No Murmurs; No JVD, - - Irregular Abdominal: NL Sounds; No Tenderness; No Distention Extremities: - - +2 pitting LLE Skin: - - Wound to lateral left ankle, erythema mostly resolved Neurological: Alert and Oriented x 3 Lines/Tubes/Other Access: Clean, Dry and Intact Peripheral IV Nutrition: Taking PO's Result Diagrams: 07/23/19 05:07 07/23/19 05:07 Assess/Plan/Problems-Billing Assessment: Mr. Luevano is a 69 yo M with PMH of HTN, obesity, anxiety, BPH, afib, MOOKIE, RBBB, DM2, osteomyelitis; directly admitted to the hospital from the Wound Clinic d/t infected RLE ankle wound. - Patient Problems (1) Wound of left ankle Code(s): S91.002A - UNSPECIFIED OPEN WOUND, LEFT ANKLE, INITIAL ENCOUNTER Comment: - Secondary to ill-fitting boot - Follows at the Wound Clinic - Wound culture growing Pseudomonas - MRI showing a joint effusion and likely myositis, but unremarkable for abscess or osteomyelitis - Appreciate Ortho consult - Appreciate ID consult; will likely need 2 weeks cefepime - Continue cefepime (2) Atrial fibrillation Code(s): I48.91 - UNSPECIFIED ATRIAL FIBRILLATION Comment: - Rate controlled - Continue metoprolol, Xarelto (3) HTN (hypertension) Code(s): I10 - ESSENTIAL (PRIMARY) HYPERTENSION Comment: - Normotensive - Continue lisinopril, HCTZ (4) HLD (hyperlipidemia) Code(s): E78.5 - HYPERLIPIDEMIA, UNSPECIFIED Comment: - Continue atorvastatin (5) MOOKIE (obstructive sleep apnea) Code(s): G47.33 - OBSTRUCTIVE SLEEP APNEA (ADULT) (PEDIATRIC) Comment: - CPAP (6) BPH (benign prostatic hyperplasia) Code(s): N40.0 - BENIGN PROSTATIC HYPERPLASIA WITHOUT LOWER URINRY TRACT SYMP Comment: - Continue tamsulosin (7) DVT prophylaxis Comment: - Xarelto (8) Full code status Code(s): Z78.9 - OTHER SPECIFIED HEALTH STATUS Comment: Status and Disposition: Inpatient. Anticipate d/c home when medically stable, likely tomorrow pending ID and Ortho consults. Attending: Bryn Barnhart MD
--- NOTE | 2019-07-24 15:08 | CONS ---
CONSULTATION REPORT: DATE OF CONSULT: 07/24/19 CHIEF COMPLAINT: Left lower extremity wound. HISTORY OF PRESENT ILLNESS: Albin is a patient who was seeing my partner, Dr. Buckley I believe in the past. He has a Charcot foot and ankle. He has a lot of varus deformity through the ankle. He was fitted for a boot at the [employer] to try to get the foot straighter to assist in being able to weight bear and ambulate short distances. It sounds like there had been some surgical conversation about a TTC fusion and there was ongoing second opinion consult and that has all been slowed down by the pandemic, but he has developed a wound over the lateral malleolus with the boot. It started to look a little bit more infected and so he was sent over by the wound center. He has been admitted. He has been placed on IV antibiotics. He says it is looking better and there have been some conversations about potentially discharging him. Orthopedics was consulted after MRI was done. PAST MEDICAL HISTORY: Hypertension; morbid obesity; anxiety; BPH; atrial fibrillation, on anticoagulation with Xarelto; obstructive sleep apnea; history of right bundle branch block; history of osteomyelitis, he is status post amputation of the left fifth toe; as well as type 2 diabetes. PAST SURGICAL HISTORY: Tonsillectomy, inguinal hernia repair x3, ankle surgery , left fifth toe amputation. HOME MEDICATIONS: 1. Losartan. 2. Hydrochlorothiazide. 3. Xarelto. 4. Atorvastatin. 5. Metoprolol. 6. Valium. 7. Citalopram. 8. Multivitamin. 9. Tamsulosin. 10. He was on Keflex prior to admission for IV antibiotics and then Tylenol. ALLERGIES: SULFA and PENICILLIN. FAMILY HISTORY: Noncontributory. SOCIAL HISTORY: He lives with his . He uses a wheelchair for mobility. He is able to ambulate short distances with the use of the boot. REVIEW OF SYSTEMS: As above. Denies fevers, chills, or any systemic symptoms. There is not much pain associated with this. PHYSICAL EXAM: Afebrile, pulse 77, blood pressure 112/58, respiratory rate 16, satting 96% on room air. General: Awake and alert, very pleasant. Skin: There is a little bit of erythema and hyperemia about the lateral malleolus wound on the left ankle. He also on the plantar surface has just a very superficial abrasion/wound near the mid to hindfoot area, but it is very superficial. Also looks like it is just involving the epidermis and the first little bit of the dermis. Musculoskeletal: He has large, almost 90-degree varus deformity through the ankle. There is the 1 cm wound over the lateral malleolus. Again, it looks a little inflamed. There is no significant active drainage. It does not have a malodor. DIAGNOSTIC STUDIES/LAB DATA: Blood cultures were negative, those were dated 01/29. The wound culture on 07/19/19 grew pseudomonas. Laboratory: White blood cell count has been trending down, is currently 8.7, it was 11.6 on admission. H and H is 13 and 38, ESR 57, CRP is 51, his creatinine is 0.91. Studies: MRI of the left ankle shows inflammatory soft tissue changes. There is a bit of a talocrural joint effusion, and they read it as arthropathic related mild subchondral marrow edema, but no compelling evidence for osteomyelitis. X-rays have not been done this admission. IMPRESSION: Left Charcot ankle with a wound that has developed over the lateral malleolus, which is responding nicely to IV antibiotics as it has looked better every day. PLAN: For the time being, I would try to treat this with antibiotics and wound care. Any surgery for this would be extensive and so my recommendation is try to treat this with antibiotics and wound care, but certainly I think it is very appropriate for him to be discharged when the medical team feels like that is a good option and then continue the antibiotics and then he can follow up with Dr. Buckley as an outpatient. [id number]/[facility] #: [id number] [facility]
[2019-07-24] MEDS: Metoprolol Succinate XL TAB* 100 MG PO SCH (22:18)
[2019-07-24] MEDS: Losartan TAB* 25 MG PO SCH (22:18)
[2019-07-24] MEDS: Atorvastatin* 20 MG TAB PO SCH (22:18)
[2019-07-24] MEDS: Rivaroxaban TAB(*) 20 MG TAB PO SCH (22:18)
[2019-07-24] MEDS: Multivitamins/Minerals TAB PO SCH (22:18)
[2019-07-24] MEDS: Hydrochlorothiazide TAB* 25 MG PO SCH (22:18)
[2019-07-24] MEDS: Tamsulosin CAP* 0.4 MG PO SCH (22:18)
[2019-07-25] MEDS: Cefepime(*) 2 GM in NS 0.9% 50 ML* 50 ML IVPB SCH ×2 (03:09→15:33)
[2019-07-25] MEDS: Diazepam TAB(*) 5 MG PO PRN ×2 (05:11→21:52)
--- NOTE | 2019-07-25 10:34 | PN ---
Progress Note - Progress Note Date of Service: 07/25/19 SOAP: Subjective: [Pt was seen this am sitting up in bed. He states that he does not have pain in the ankle at this point. States that he is doing well. Denies any chest pain, sob, nausea or vomiting.] Objective: [General: pt is alert and oriented x3. NAD. MSK, LLE: Dressing is c/d/i. Dressing chaged. Small ulcer present about the lateral mal. The pts foot is severely inverted. There is no drainage from the wound. We are able to probe 7mm superior. The pt has no pain at this point. He does have a 2+ DP pulse present. Vital Signs Temp 97.6 F 07/25/19 03:04 Pulse 80 07/25/19 03:04 Resp 16 07/25/19 07:11 BP 117/81 07/25/19 03:04 Pulse Ox 95 07/25/19 03:04 Intake & Output 07/24/19 07/25/19 07/25/19 18:59 06:59 18:59 Intake Total 840 108 600 Output Total 0 850 Balance 840 -742 600 Weight 375 lb Intake: IV Fluids 35 ABX - CEFEPIME 35 IVPB 73 ABX - CEFEPIME 73 Oral 840 600 Output: Urine 0 850 ] Assessment: [Left foot Charcot with wound over the lateral aspect. ] Plan: [Continue with abx as the pt has stated that the wound has improved significantly Continue with daily dressing changes by nursing The pt should follow up with Dr. Buckley next week for wound check Ok to discharge when medically stable per hospitalists. ]
--- NOTE | 2019-07-25 15:40 | PN ---
Subjective Date of Service: 07/25/19 Interval History: pt reports continued improvement and increased desire to go home. pt reports that he would likely be unable to get to an outpatient infusion center twice daily if that is necessary. Pt is without CP, SOB, dizziness, or numbness or tingling left lower extremity. Family History: Unchanged from Admission Social History: Unchanged from Admission Past Medical History: Unchanged from Admission Objective Active Medications: Acetaminophen (Tylenol Tab*) 650 mg PO Q4H PRN PRN Reason: MILD PAIN or TEMP > 100.4 Last Admin: 07/21/19 19:55 Dose: 650 mg Atorvastatin Calcium (Lipitor*) 20 mg PO BEDTIME HODAN Last Admin: 07/24/19 22:18 Dose: 20 mg Diazepam (Valium Tab(*)) 5 mg PO TID PRN PRN Reason: ANXIETY Last Admin: 07/25/19 05:11 Dose: 5 mg Hydrochlorothiazide (Hydrodiuril Tab*) 25 mg PO BEDTIME HODAN Last Admin: 07/24/19 22:18 Dose: 25 mg Cefepime HCl 2 gm/ Sodium (Chloride) 50 mls @ 100 mls/hr IVPB Q12H HODAN Last Admin: 07/25/19 15:33 Dose: 100 mls/hr Losartan Potassium (Cozaar Tab*) 100 mg PO BEDTIME HODAN Last Admin: 07/24/19 22:18 Dose: 100 mg Melatonin (Melatonin) 3 mg PO BEDTIME PRN PRN Reason: SLEEP Last Admin: 07/24/19 00:34 Dose: 3 mg Metoprolol Succinate (Toprol Xl Tab*) 100 mg PO BEDTIME HODAN Last Admin: 07/24/19 22:18 Dose: 100 mg Multivitamins/Minerals (Theragran/Minerals Tab*) 1 tab PO BEDTIME HODAN Last Admin: 07/24/19 22:18 Dose: 1 tab Rivaroxaban (Xarelto(*)) 20 mg PO BEDTIME HODAN Last Admin: 07/24/19 22:18 Dose: 20 mg Tamsulosin HCl (Flomax Cap*) 0.4 mg PO BEDTIME HODAN Last Admin: 07/24/19 22:18 Dose: 0.4 mg Vital Signs - 8 hr 07/25/19 07/25/19 07/25/19 07:58 08:00 11:26 Temperature 97.5 F 98.1 F Pulse Rate 73 81 Respiratory 20 20 19 Rate Blood Pressure 122/77 106/70 (mmHg) O2 Sat by Pulse 96 94 Oximetry Oxygen Devices in Use Now: None Appearance: Obese elderly gentlman laying in bed watching TV, does not appear to be in any distress. Eyes: No Scleral Icterus, PERRLA Ears/Nose/Mouth/Throat: NL Teeth, Lips, Gums, Clear Oropharnyx, Mucous Membranes Moist Neck: NL Appearance and Movements; NL JVP, Trachea Midline, No Thyroid Enlargement, Masses Respiratory: Symmetrical Chest Expansion and Respiratory Effort, Clear to Auscultation Cardiovascular: NL Sounds; No Murmurs; No JVD, RRR, - - Chronic edema in bilateral lower extremities. Abdominal: NL Sounds; No Tenderness; No Distention, No Hepatosplenomegaly Lymphatic: No Cervical Adenopathy Extremities: No Clubbing, Cyanosis Skin: No Rash or Ulcers, No Nodules or Sclerosis, - - left maleolus wound is covered, dressing is CDI. Neurological: Alert and Oriented x 3, NL Sensation, NL Muscle Strength and Tone , - - Left foot is contracted with inward rotation of foot and pronounced curvature of left ankle. Unable to articulate left ankle Nutrition: Taking PO's Result Diagrams: 07/23/19 05:07 07/23/19 05:07 Microbiology and Other Data: Microbiology 07/21/19 15:02 Aerobic Blood Culture - Preliminary Blood Venous No Growth Day 4 Anaerobic Blood Culture - Preliminary No Growth Day 4 07/21/19 15:02 Aerobic Blood Culture - Final Blood Venous Staphylococcus Epidermidis Anaerobic Blood Culture - Preliminary No Growth Day 4 Blood MRSA/MSSA (PCR) - Final Mrsa Negative S.aureus Negative Assess/Plan/Problems-Billing Assessment: Mr. Luevano is a 69 yo M with PMH of HTN, obesity, anxiety, BPH, afib, MOOKIE, RBBB, DM2, osteomyelitis; directly admitted to the hospital from the Wound [facility] d/t infected LLE ankle wound. - Patient Problems (1) Wound of left ankle Current Visit: Yes Comment: - Secondary to ill-fitting boot - Follows at the Wound Clinic - Wound culture growing Pseudomonas - MRI showing a joint effusion and likely myositis, but unremarkable for abscess or osteomyelitis - Pt will need LISA for IV abx therapy. [facility] is refusing to open patient case due to hx of noncompliance. pt is refusing LISA for IV abx therapy. ID will consider changing abx therapy to once daily. Pt reports that [facility] will be able to transport him for outpatient infusions. - PT evaluation ordered - Continue cefepime (2) MOOKIE (obstructive sleep apnea) Current Visit: Yes Comment: - CPAP while sleeping (3) Atrial fibrillation Current Visit: No Comment: - Rate controlled - Continue Toprol XL, Xarelto (4) BPH (benign prostatic hyperplasia) Current Visit: Yes Comment: - Continue tamsulosin (5) HLD (hyperlipidemia) Current Visit: Yes Comment: - Continue atorvastatin (6) HTN (hypertension) Current Visit: No Comment: - Well controlled - Normotensive - Continue Cozaar, Toprol XL, and HCTZ (7) DVT prophylaxis Current Visit: Yes Comment: - Xarelto (8) Full code status Current Visit: Yes Comment: Status and Disposition: Inpatient. Anticipate d/c home when medically stable, likely after outpatient abx therapy established.
--- NOTE | 2019-07-25 15:57 | CONS ---
CONSULTATION REPORT: DATE OF CONSULT: 07/25/19 PRIMARY CARE PROVIDER: Dr. Ramez Akins. PROVIDER REQUESTING CONSULTATION: Yashira Crystal NP. CONSULTING SERVICE: Infectious Diseases. PROVIDER: Cleopatra Valle NP. ATTENDING PROVIDER: Dr. Bryn Barnhart* (Cleopatra Valle NP). IMPRESSION: 1. Left ankle infection. MRI with soft tissue inflammatory change without visualized loculated abscess collection. Moderate talocrural joint effusion and probable arthropathic related mild subchondral marrow edema at the superolateral margin of the dome of the talus. Suspect this represents myositis and cellulitis in the setting of a wound to the lateral malleolus. The patient has been following with the wound center and Dr. Buckley outpatient. Outpatient cultures from 07/19/19 with pseudomonas. The patient has been on cefepime during his admission. He is afebrile. Leukocytosis resolved. CRP elevated on admission at 51.52. Overall, the patient reports that the redness, edema are improving. 2. Blood cultures with 1 out of 4 bottles positive for Staphylococcus epidermitis. Suspect this represents a contamination and not a pathogen. 3. Diabetes mellitus, type 2. 4. Morbid obesity. BMI 49.5. 5. SULFA allergy, caused hives. PENICILLIN caused GI upset. RECOMMENDATIONS: Recommend continuing cefepime. Discharge plan will be for cefepime 1 g IV q.12 hours for 14 days. The patient will need to have a midline placed if he is going to have home infusions. If he is going to go to a subacute rehab facility, he will need to have a midline placed. He should have weekly labs while on IV antibiotics, CBC, CMP, CRP. Follow up with ID outpatient in 1 to 2 weeks. HISTORY OF PRESENT ILLNESS: Mr. Luevano is a 69-year-old male with past medical history significant for hypertension; morbid obesity; anxiety; BPH; atrial fibrillation, on chronic anticoagulation; right bundle-branch block; obstructive sleep apnea; diabetes mellitus, type 2; history of osteomyelitis of the left fifth toe, status post amputation in 2018, who has been following with the wound clinic and Dr. Buckley with Orthopedics. He reports being fitted for new boots approximately 3 months ago, but after wearing the boot for approximately a week, he had noticed that it was rubbing on the side of his left ankle and had a wound open. Overall, the wound had been open and draining for approximately 3 weeks prior to his presentation. He was seen in the wound care center for a routine exam on 07/19/19, at which time he was noted to have increased redness and a culture was obtained. His culture grew pseudomonas. He was started on Keflex. He continued to have increased redness and pain. He was seen again in the wound clinic on 07/21/19 and was directly admitted to the hospital for IV antibiotics. While in the hospital, he has denied any nausea, vomiting, diarrhea, fevers, or chills. He denies any respiratory symptoms such as cough, congestion, or shortness of breath. He does report constipation, has not moved his bowels in 3 days. Previously, he had reported a small amount of diarrhea when he initially started the Keflex outpatient last week. The redness and swelling has been improving. He had an MRI showing soft tissue inflammation and a moderate talocrural joint effusion. No osteomyelitis. He has been on IV cefepime. He has been afebrile except for a 101 fever near the time of his admission. CRP was elevated at 51.52, elevated ESR of 57. His leukocytosis has resolved. Blood cultures with no growth in 3 out of 4 bottles, 1 bottle with Staphylococcus epidermitis. PAST MEDICAL HISTORY: 1. Hypertension. 2. Morbid obesity, BMI 49.5. 3. Anxiety. 4. Benign prostatic hypertrophy. 5. Atrial fibrillation, on chronic anticoagulation. 6. Obstructive sleep apnea. 7. Right bundle-branch block. 8. Osteomyelitis of the left fifth toe. 9. Diabetes mellitus, type 2. PAST SURGICAL HISTORY: 1. Status post tonsillectomy. 2. Status post inguinal hernia repair x3. 3. Status post debridement of left heel. 4. Status post left fifth ray amputation 2018. 5. Status post removal of hardware of the right ankle 2007. 6. Status post right ankle ORIF. MEDICATIONS: Home medications: 1. Citalopram 20 mg by mouth daily. 2. Cephalexin 500 mg by mouth 3 times daily. 3. Atorvastatin 20 mg by mouth at bedtime. 4. Acetaminophen 650 by mouth every 4 hours as needed for fever or pain. 5. Tamsulosin 0.4 mg by mouth daily. 6. Xarelto 20 mg by mouth daily at bedtime. 7. Multivitamin 1 tablet by mouth daily. 8. Metoprolol succinate 100 mg by mouth daily. 9. Losartan/hydrochlorothiazide 100/25 one tablet by mouth daily. 10. Valium 5 mg by mouth 3 times daily as needed for anxiety. Hospital medications: 1. Acetaminophen 650 mg by mouth every 4 hours as needed for fever or pain. 2. Atorvastatin 20 mg by mouth daily. 3. Cefepime 2 g IV every 12 hours. 4. Valium 5 mg by mouth 3 times daily as needed for anxiety. 5. Hydrochlorothiazide 25 mg by mouth daily. 6. Losartan 100 mg by mouth daily. 7. Melatonin 3 mg by mouth daily at bedtime as needed for sleep. 8. Metoprolol succinate 100 mg by mouth daily. 9. Multivitamin 1 tablet by mouth daily. 10. Xarelto 20 mg by mouth daily. 11. Tamsulosin 0.4 mg at bedtime. ALLERGIES: SULFA and PENICILLIN. FAMILY HISTORY: Mother passed at age 59 from colon cancer. Father passed at age 52 from ND. SOCIAL HISTORY: Former smoker, quitting 40 years ago. He drinks 2 to 3 glasses of wine 4 times a week. Denies any recreational drug use. REVIEW OF SYSTEMS: I performed a 10-point review of systems. All the pertinent positives and negatives are mentioned in the history of present illness. The remaining review of systems are negative. PHYSICAL EXAM: Vital Signs: Temperature 97.5, heart rate 73, respiratory rate 20, O2 sat 96% on room air, blood pressure 122/77. General Appearance: Alert, appears to be in no acute distress. Head: Normocephalic, atraumatic. ENT: Extraocular movements are intact. No subconjunctival hemorrhage. Moist mucous membranes. Neck: Supple. No lymphadenopathy. Neurological: Alert and oriented. Cranial nerves II through XII are grossly intact. Moves all extremities. Cardiovascular: Regular rate and rhythm. S1, S2 present. No murmurs, rubs, or gallops heard. Respiratory: No accessory muscle use. Lungs are clear to auscultation bilateral. Abdomen: Bowel sounds present. Abdomen soft, large, nontender, nondistended. Extremities: No lower extremity edema. DP pulse on the left is 2+. Musculoskeletal: No clubbing or cyanosis noted. The patient exhibits good strength in all extremities. His right foot is internally rotated with no pain with palpation of the ankle, foot, or left knee. Psychological: Calm and cooperative. Skin: No rashes seen. He is noted to have an approximate 0.5 x 0.5 cm ulcer to the lateral malleolus. This is able to be probed most of the way around it at about 0.8 cm. DIAGNOSTIC STUDIES/LABORATORY DATA: Labs from 07/23/19, sodium 135, potassium 4.1, chloride 104, CO2 of 25. BUN 16, creatinine 0.91, glucose 111. CRP on admission 51.52. CBC from 07/23/19, white blood cell count 8.7, hemoglobin 13.0 , hematocrit 38, platelet count 194, and ESR on admission 57. Please see impression and recommendations outlined above. Recommendations have been discussed with HAL Ramesh and Daniel Wilson NP. Thank you for asking us to see Mr. Luevano in consultation. The case has been discussed with my attending Dr. Bryn Barnhart who agrees with the plan of care. Reviewed by ALIX HARLEY 07/27/19 1303 [id number]/[facility] #: [id number] [facility]
[2019-07-25] MEDS: Rivaroxaban TAB(*) 20 MG TAB PO SCH (21:01)
[2019-07-25] MEDS: Tamsulosin CAP* 0.4 MG PO SCH (21:01)
[2019-07-25] MEDS: Hydrochlorothiazide TAB* 25 MG PO SCH (21:02)
[2019-07-25] MEDS: Multivitamins/Minerals TAB PO SCH (21:02)
[2019-07-25] MEDS: Metoprolol Succinate XL TAB* 100 MG PO SCH (21:02)
[2019-07-25] MEDS: Atorvastatin* 20 MG TAB PO SCH (21:02)
[2019-07-25] MEDS: Losartan TAB* 25 MG PO SCH (21:02)
[2019-07-25] MEDS: Melatonin 3 MG TAB PO PRN (21:52)
[2019-07-26] MEDS: Cefepime(*) 2 GM in NS 0.9% 50 ML* 50 ML IVPB SCH ×2 (03:35→15:15)
--- NOTE | 2019-07-26 09:09 | PN ---
Progress Note - Progress Note Date of Service: 07/26/19 SOAP: Subjective: CC: Left ankle infection HPI: Mr. Luevano is a 69 yo male with PMH significant for DM2, morbid obesity, HTN, BPH, A fib on chronic anticoagulation, MOOKIE, and anxiety. Denies fever, chills, nausea, vomiting, or diarrhea. He feels like he will be able to manage home IV ABX. Objective: Vital Signs - 8 hr 07/26/19 03:00 Temperature 97 F Pulse Rate 79 Respiratory 18 Rate Blood Pressure 115/69 (mmHg) O2 Sat by Pulse 98 Oximetry Physical Exam: General: NAD, laying in bed Neurological: Alert and Oriented HEENT: Moist MM Cardiovascular: Heart rate regular Respiratory: Lung sounds clear Abdominal: Bowel sounds present; ABD soft, non tender and non distended MSK: No tenderness with palpation of the left ankle Skin: No rash. DSG to left ankle clean, dry and intact Laboratory Tests 07/23/19 07/23/19 05:07 05:07 WBC 8.7 Hgb 13.0 L Hct 38 L Plt Count 194 Sodium 135 Potassium 4.1 Chloride 104 Carbon Dioxide 25 BUN 16 Creatinine 0.91 Glucose 111 H Microbiology 07/21/19 15:02 Aerobic Blood Culture - Preliminary Blood Venous No Growth Day 4 Anaerobic Blood Culture - Preliminary No Growth Day 4 07/21/19 15:02 Aerobic Blood Culture - Final Blood Venous Staphylococcus Epidermidis Anaerobic Blood Culture - Preliminary No Growth Day 4 Blood MRSA/MSSA (PCR) - Final Mrsa Negative S.aureus Negative Assessment: 1. Left ankle infection with cellulitis and suspected myositis. MRI with soft tissue inflammatory change without loculated abscess, moderate talocrural joint effusion. Outpatient cultures with pseudomonas. Afberile and no leukocytosis ( on last labs checked). CRP elevated. Resolving erythema and edema. 2. Blood cultures with 1/4 positive for staph epi. Suspect this represents a contaminate and not a pathogen. 3. DM2. 4. Morbid obesity. BMI 49.5 5. Sulfa and PCN allergies. Plan: Continue cefepime, day 5. He will need to have a midline placed. DISCHARGE PLAN : Cefepime 1 gm IV Q12H for 14 days. Weekly labs while on IV ABX: CBC, CMP, and CRP. Followup with ID in 1-2 weeks (prior to end of IV ABX). Telemed ok if Pt is able to, or in the office. 25 minutes floor time: > 50% spent with the patient discussing plans for home IV ABX, when to call the office (fever, rash, diarrhea).
--- NOTE | 2019-07-26 14:41 | PN ---
Progress Note - Progress Note Date of Service: 07/26/19 SOAP: Subjective: Pt seen at bedside today for left ankle wound. Pt states that he is doing much better today, erythema and edema improving quite a bit. Denies pain. Objective: Vitals: Temp Pulse Resp BP Pulse Ox 98.1 F 95 20 105/76 96 07/26/19 11:33 07/26/19 11:33 07/26/19 11:33 07/26/19 11:33 07/26/19 11:33 Gen: A&Ox3, NAD at rest laying in bed LLE: Small wound to lateral ankle which is dry. No surrounding erythema. Probes about 6mm deep. Significant varus deformity of the ankle present. Able to slightly DF/PF at ankle. Assessment: Left lateral ankle wound Plan: IV abx per ID Cont WBAT with [place]PPER [place] walker, but pad lateral mal well to prevent further breakdown F/u with Dr. Buckley next week for wound check
[2019-07-26 15:34] VITALS: BP 126/76
--- NOTE | 2019-07-27 00:42 | DS ---
CC: Dr. Ramez Akins* DISCHARGE SUMMARY: DATE OF ADMISSION: 07/21/19 DATE OF DISCHARGE: 07/26/19 PROVIDER: Belinda Cai NP PRIMARY CARE PROVIDER: Dr. Ramez Akins ATTENDING PHYSICIAN: Dr. Charo Gilliland* (dictated by Belinda Cai NP). PRIMARY DIAGNOSIS: Left ankle infection. SECONDARY DIAGNOSES: 1. Hypertension. 2. Morbid obesity. 3. Anxiety. 4. BPH. 5. Atrial fibrillation. 6. Diabetes mellitus, type 2. STUDIES WHILE IN THE HOSPITAL: On 07/24/19, MRI left lower extremity without contrast, significant soft tissue inflammatory change without visualized loculated abscess collection, moderate talocrural joint effusion, and probable arthropathic related mild subchondral marrow edema at the superolateral margin of the dome of the talus, no compelling evidence for osteomyelitis. CONSULTATIONS WHILE IN THE HOSPITAL: 1. Dr. Jose R Nieves from Orthopedics. 2. Cleopatra Jasso NP, from Infectious Disease. 3. HAL Cabezas, from Orthopedics. HISTORY OF PRESENT ILLNESS AND HOSPITAL COURSE: Mr. Luevano is a 69-year-old male patient with past medical history of hypertension, morbid obesity, anxiety , BPH, AFib, MOOKIE, RBBB, and diabetes mellitus, type 2, who presented to emergency department. The patient presented to hospital for direct admission from wound care clinic related to an open wound on left ankle with increased redness, swelling, and pain. The wound resulted from friction against the ankle from ill-fitted boot meant to stabilize Charcot foot. The wound developed approximately 3 weeks prior to presentation. The patient has been followed by wound care clinic. Results of wound culture in outpatient setting revealed pseudomonas for which the patient was treated with Keflex p.o. for 2 days, started on 07/19/19. The patient continued to complain of worsening pain , redness, and swelling of left lower extremity. The patient was directed to go to the hospital for admission on 07/21/19 for treatment with IV antibiotics. The patient was started on cefepime 2 g every 12 hours. After 5 days of cefepime antibiotic, the patient improved enough that he was determined well enough for home antibiotic therapy. Blood cultures in the hospital showed no growth of Staphylococcus epidermidis, showed no growth of MRSA, and no growth of Staph aureus. On admission to the hospital, the patient's white blood cell count was 11.6, but steadily improved with antibiotic therapy decreasing daily to 8.7 on 07/23/19. The patient's chronic medical conditions were treated without issue throughout the stay. The patient's dressings on left lower extremity was changed daily and dressing remains clean, dry, and intact at this time and it has been determined the patient is well enough to return home with antibiotic treatment at home managed by the patient. PHYSICAL EXAMINATION: On exam, the patient is alert and oriented x4 with no focal neurological deficits. Heart rate is regular without murmurs, rubs, or gallops. Lungs are clear to auscultation without rhonchi, wheezes, or rubs. Abdomen is round, nondistended, nontender to palpation, and bowel sounds are positive x4 quadrants. Lower extremities show chronic edema of bilateral lower extremities. Skin reveals no rashes or ulcers, nodules, or sclerosis. Left malleolus wound is covered with gauze dressing, which is clean, dry, and intact. Physical exam is otherwise benign. Mr. Luevano is stable for discharge. Most recent vital signs are as follows: 97.6 for temp, 97 for heart rate, 18 respirations, oxygen saturation 96% on room air, and blood pressure 126/76. MOST RECENT LABORATORY VALUES: White blood cell 8.7, hemoglobin 13.0, hematocrit 38, platelets 194. Sodium 135, potassium 4.1, chloride 104, carbon dioxide 25, BUN 16, creatinine 0.91, calcium 9.0. DISCHARGE MEDICATIONS: New medications: Cefepime 1 g IV q.12 hours. Continued: 1. Acetaminophen 650 mg by mouth q.4 hours p.r.n. fever or pain. 2. Atorvastatin 20 mg p.o. at bedtime. 3. Citalopram 20 mg p.o. at bedtime. 4. Diazepam 5 mg 1 tablet p.o. t.i.d. 5. Losartan/hydrochlorothiazide 1 tab p.o. at bedtime. 6. Melatonin 3 mg p.o. at bedtime. 7. Metoprolol succinate XL 100 mg p.o. at bedtime. 8. Multivitamin 1 tablet p.o. at bedtime. 9. Xarelto 20 mg p.o. at bedtime. 10. Tamsulosin 0.4 mg p.o. at bedtime. DISCHARGE PLAN: Mr. Luevano will be discharged home. Activity will be weightbearing as tolerated. Diet will be regular diet. Continue activity as tolerated at home. Weightbearing as tolerated as planned. He will receive cefepime 1 g every 12 hours x14 days with [facility], [facility] will be at your home tomorrow morning for teaching. He will need weekly lab draws while on antibiotic therapy, CBC, CMP, and CRP, which will be managed by [facility]. He should follow up with Infectious Disease in 1 to 2 weeks prior to finishing antibiotic therapy, call for an appointment; you we may here from the office to set up an appointment, as it is easier for you; you may have telemedicine visit or we may set up [id number] in the office. Follow up with Dr. Buckley's office next Wednesday or Wednesday. Call the office for appointment upon returning home. Be sure to return to the emergency department or nearest hospital for any worsening of symptoms, shortness of breath, lightheadedness, dizziness, chest discomfort, high fevers, chills, night sweats, loss of consciousness, or any other worrisome signs or symptoms. DISCHARGE CONDITION: Stable. DISCHARGE DISPOSITION: Home. This is a summarized report of complex medical history and hospital stay. For further details, please see the entire medical record. TIME SPENT: Approximately 45 minutes was spent on this discharge. BELINDA CAI, SHANTELL [id number]/[facility] #: [id number] JASMEET
== END 2019-07-26 17:35 | disposition home or self-care (01) | DRG 603 ==
LOC: SSU 12:06 → OBSVTOIN 14:03 → MEDTELE 22:30
PROVIDERS: ADMIT Internal Medicine; ATTEND Internal Medicine
PROC: 5A09357 Assistance with Respiratory Ventilation, Less than 24 Consecutive Hours, Continuous Positive Airway Pressure (ICD-10-PCS; principal; 2019-07-21)
DX: L03.116 Cellulitis of left lower limb (principal); Z68.42 Body mass index [BMI] 45.0-49.9, adult; L97.322 Non-pressure chronic ulcer of left ankle with fat layer exposed; E11.621 Type 2 diabetes mellitus with foot ulcer; L08.9 Local infection of the skin and subcutaneous tissue, unspecified; E11.610 Type 2 diabetes mellitus with diabetic neuropathic arthropathy; M21.172 Varus deformity, not elsewhere classified, left ankle; N40.0 Benign prostatic hyperplasia without lower urinary tract symptoms; E78.5 Hyperlipidemia, unspecified; I10 Essential (primary) hypertension; E66.01 Morbid (severe) obesity due to excess calories; F41.9 Anxiety disorder, unspecified; I48.91 Unspecified atrial fibrillation; G47.33 Obstructive sleep apnea (adult) (pediatric); I45.10 Unspecified right bundle-branch block; Z79.01 Long term (current) use of anticoagulants; Z89.422 Acquired absence of other left toe(s); Z88.2 Allergy status to sulfonamides; Z88.0 Allergy status to penicillin; Z79.899 Other long term (current) drug therapy; Z91.19 Patient's noncompliance with other medical treatment and regimen
CPT/HCPCS: 36415; 80048; 80053; 85025; 85652; 86140; 87040; 87077; 87150; 87205; 94660; A9270-GY; J0692

== ENCOUNTER 2020-02-04 21:38 | Inpatient (IN) ==
[2020-02-04] MEDS ORDERED: Lactated Ringers 1000 ml BAG 1,000 ML IV ONE (23:01)
[2020-02-04] MEDS: Lactated Ringers 1000 ml BAG 1,000 ML IV SCH ×2 (23:54→23:58)
[2020-02-05 00:05] LABS: Hematocrit 30 % (42-52); Hemoglobin 10.1 g/dL (14.0-18.0); Mean Corpuscular HGB Conc 34 g/dL (31-36); Mean Corpuscular Hemoglobin 35 pg (27-31); Mean Corpuscular Volume 102 fL (80-94); Mean Platelet Volume 8.9 fL (7.4-10.4); Platelet Count 155 10^3/uL (150-450); Red Blood Count 2.89 10^6 /uL (4.18-5.48); Red Cell Distribution Width 13 % (10-15); White Blood Count 16.9 10^3/uL (3.5-10.8)
[2020-02-05 00:22] LABS: Urine Appearance Cloudy; Urine Bilirubin Negative (Negative); Urine Blood Negative (Negative); Urine Color Yellow; Urine Glucose Negative (Negative); Urine Ketones Negative (Negative); Urine Nitrite Negative (Negative); Urine Protein 1+(30 mg/dL) (Negative); Urine Specific Gravity 1.017 (1.010-1.030); Urine Urobilinogen Negative (Negative)
[2020-02-05 00:23] LABS: Albumin/Globulin Ratio 1.1 (1-3); BUN/Creatinine Ratio 23.1 (8-20); C Reactive Protein 215.17 mg/L (<8.01); Calcium 8.2 mg/dL (8.6-10.3); EGFR African American 74.1 (>60); EGFR Non-African American 61.3 (>60); Globulin 2.8 g/dL (2-4); Potassium 3.9 mmol/L (3.5-5.0); Total Bilirubin 0.7 mg/dL (0.2-1.0); Total Protein 5.8 g/dL (6.4-8.9)
[2020-02-05 00:24] LABS: Urine Bacteria Absent (Absent); Urine Red Blood Cell Trace(0-2/hpf) (Absent); Urine Squamous Epithelial Cell Present (Absent); Urine White Blood Cell Trace(0-5/hpf) (Absent)
[2020-02-05] MEDS ORDERED: Vancomycin 1,000 MG in NS 0.9% 250 ml 250 ML IVPB ONE ×2 (00:31→01:25)
[2020-02-05] MEDS ORDERED: Ondansetron 4 mg VIAL 2 MG/ML 2 ml VIAL IV ONE (00:51)
[2020-02-05] MEDS ORDERED: Morphine 4 MG/ML VIAL (1 ml) IV ONE (00:51)
[2020-02-05] MEDS: Lactated Ringers 1000 ml BAG 1,000 ML IV SCH (01:20)
[2020-02-05] MEDS ORDERED: Piperacillin/Tazobac ADVAN 3.375 GM in NS 0.9% 100 ml BAG 100 ML IVPB ONE (01:22)
[2020-02-05] MEDS ORDERED: Piperacillin/Tazobac ADVAN 3.375 GM in NS 0.9% 100 ml BAG 100 ML IV ONE (01:25)
[2020-02-05] MEDS ORDERED: Dextrose 50% Syringe 50 ml 25 GM/50 ML SYRINGE IV PUSH PRN (01:28)
[2020-02-05] MEDS ORDERED: Cefepime 2 GM in Dextrose 2 GM/50 ML BAG IV ONE (01:31)
[2020-02-05] MEDS ORDERED: Vancomycin per Pharmacy 1 EA NOTE FOLLOW UP SCH (02:00)
[2020-02-05] MEDS ORDERED: Norepinephrine 16MCG/ML IVPRE 4,000 MCG/250 ML BAG IV SCH (02:00)
[2020-02-05] MEDS ORDERED: Zosyn per Pharmacy NOTE FOLLOW UP SCH (02:00)
[2020-02-05] MEDS ORDERED: Vancomycin 1500 MG IV - x ONCE IVPB ONE (02:45)
[2020-02-05 02:46] LABS: ABS Lymphocytes 0.7 10^3/ul (1.0-4.8); ABS Monocytes 2.7 10^3/ul (0-0.8); ABS Neutrophils 13.5 10^3/ul (1.5-7.7); Eosinophil % 0.1 %; Lymphocyte % 4.1 %
[2020-02-05] MEDS ORDERED: Meropenem 2 GM in NS 0.9% 100 ml BAG 100 ML IVPB ONE (03:05)
[2020-02-05] MEDS ORDERED: Meropenem 2 GM in NS 0.9% 100 ML BAG IVPB ONE (03:15)
[2020-02-05] MEDS ORDERED: metroNIDAZOLE IV 500 MG/100ML 500 MG/100 ML BAG IVPB SCH (04:30)
[2020-02-05 05:01] LABS: Albumin 2.8 g/dL (3.2-5.2); Albumin/Globulin Ratio 1.2 (1-3); BUN/Creatinine Ratio 21.6 (8-20); C Reactive Protein 203.91 mg/L (<8.01); Calcium 7.7 mg/dL (8.6-10.3); EGFR African American 68.7 (>60); EGFR Non-African American 56.8 (>60); Globulin 2.3 g/dL (2-4); Potassium 3.8 mmol/L (3.5-5.0); Total Bilirubin 0.9 mg/dL (0.2-1.0); Total Protein 5.1 g/dL (6.4-8.9)
[2020-02-05] MEDS: Meropenem 2 GM in NS 0.9% 100 ml BAG 100 ML IVPB SCH ×3 (05:11→19:58)
[2020-02-05 05:29] LABS: Hematocrit 31 % (42-52); Hemoglobin 10.2 g/dL (14.0-18.0); Mean Corpuscular HGB Conc 33 g/dL (31-36); Mean Corpuscular Hemoglobin 34 pg (27-31); Mean Corpuscular Volume 103 fL (80-94); Mean Platelet Volume 8.5 fL (7.4-10.4); Platelet Count 161 10^3/uL (150-450); Red Cell Distribution Width 13 % (10-15); White Blood Count 18.2 10^3/uL (3.5-10.8)
[2020-02-05 05:39] LABS: ABS Lymphocytes 0.9 10^3/ul (1.0-4.8); ABS Neutrophils 14.2 10^3/ul (1.5-7.7); Eosinophil % 0.1 %; Lymphocyte % 5.1 %
[2020-02-05 08:07] LABS: Magnesium 1.2 mg/dL (1.9-2.7)
[2020-02-05] MEDS ORDERED: Heparin DRIP 25,000 UNITS BAG 25,000 UNITS/500 ML BAG IV SCH ×2 (09:15→10:26)
[2020-02-05] MEDS ORDERED: Lactated Ringers 500 ml BAG 500 ML IV ONE ×2 (09:20→23:18)
[2020-02-05] MEDS ORDERED: Heparin 5000 UNITS/ML 1 mL VIAL IV SCH (10:00)
[2020-02-05] MEDS ORDERED: Magnesium Sulf 4 GM/100 ML IV 4,000 MG/100 ML BAG IVPB ONE (10:30)
[2020-02-05] MEDS ORDERED: Perflutren Lipid Microsphere 3 ML VIAL ONE (10:40)
[2020-02-05] MEDS ORDERED: Cefepime 2 GM in Dextrose 2 GM/50 ML BAG IV SCH (14:00)
[2020-02-05] MEDS: Vancomycin 1,250 MG in NS 0.9% 250 ml 250 ML IVPB SCH (18:01)
[2020-02-05] MEDS: Multivitamins/Minerals TAB PO SCH (19:50)
[2020-02-05] MEDS ORDERED: Metoprolol Tartrate 5 mg VIAL 5 ml VIAL (1 mg/ml) IV ONE (20:37)
[2020-02-06] MEDS ORDERED: Amiodarone 150 mg IVPREMIX 150 MG/100 ML BAG IV ONE (00:30)
[2020-02-06] MEDS ORDERED: Amiodarone 360 MG IVPREMIX 360 MG/200 ML BAG IV ONE ×2 (00:40→00:47)
[2020-02-06 01:02] LABS: Hematocrit 28 % (42-52); Hemoglobin 9.6 g/dL (14.0-18.0)
[2020-02-06 01:14] LABS: Activated Partial Thrombo Time 40.1 seconds (26.0-38.0)
[2020-02-06] MEDS ORDERED: Heparin DRIP 25,000 UNITS BAG 0 UNITS/0 ML BAG ONE (01:38)
[2020-02-06] MEDS: Meropenem 2 GM in NS 0.9% 100 ml BAG 100 ML IVPB SCH ×3 (04:25→20:16)
[2020-02-06 04:45] LABS: BUN/Creatinine Ratio 21.8 (8-20); Calcium 8.4 mg/dL (8.6-10.3); EGFR African American 72.7 (>60); EGFR Non-African American 60.1 (>60); Potassium 3.9 mmol/L (3.5-5.0)
[2020-02-06 04:52] LABS: ABS Eosinophils 0.1 10^3/ul (0-0.6); ABS Lymphocytes 0.7 10^3/ul (1.0-4.8); ABS Monocytes 1.3 10^3/ul (0-0.8); ABS Neutrophils 10.7 10^3/ul (1.5-7.7); Eosinophil % 0.7 %; Hematocrit 31 % (42-52); Hemoglobin 10.3 g/dL (14.0-18.0); Lymphocyte % 5.4 %; Mean Corpuscular HGB Conc 33 g/dL (31-36); Mean Corpuscular Hemoglobin 35 pg (27-31); Mean Corpuscular Volume 106 fL (80-94); Mean Platelet Volume 8.7 fL (7.4-10.4); Platelet Count 176 10^3/uL (150-450); Red Blood Count 2.97 10^6 /uL (4.18-5.48); Red Cell Distribution Width 14 % (10-15); White Blood Count 12.8 10^3/uL (3.5-10.8)
[2020-02-06] MEDS: Lactated Ringers 1000 ml BAG 1,000 ML IV SCH ×2 (05:10→13:10)
[2020-02-06] MEDS: Vancomycin 1,250 MG in NS 0.9% 250 ml 250 ML IVPB SCH ×2 (05:10→19:04)
[2020-02-06] MEDS ORDERED: Buffered Lidocaine 1% SYRIN 1 ml INTRADERM ONE (06:00)
[2020-02-06] MEDS ORDERED: Metoprolol Tartrate 5 mg VIAL 5 ml VIAL (1 mg/ml) IV ONE (06:03)
[2020-02-06] MEDS ORDERED: Amiodarone 360 MG IVPREMIX 360 MG/200 ML BAG IV SCH (06:40)
[2020-02-06 09:08] LABS: INR 1.4 (0.82-1.09)
[2020-02-06] MEDS: Famotidine IV 10 MG/ML 2 ml VIAL (20 mg) IV SLOW PU SCH ×2 (10:51→20:17)
[2020-02-06 11:17] LABS: Folate 12.19 ng/mL (>3.99)
[2020-02-06] MEDS ORDERED: fentaNYL 250 mcg/5 ml 50 MCG/ML 5 ml VIAL (250 MCG) ONE (13:35)
[2020-02-06] MEDS ORDERED: Midazolam 5 mg/5 ml VIAL 1 mg/ml 5 ml VIAL (5 mg) ONE (13:35)
[2020-02-06] MEDS ORDERED: Lidocaine 2% w/ EPI 1:200,000 MPF 20 ML SDV VIAL ONE (13:36)
[2020-02-06] MEDS ORDERED: ROPIVACAINE 5 MG/ML 30 ML BTL (0.5%) ONE (14:20)
[2020-02-06 15:04] LABS: Magnesium 1.9 mg/dL (1.9-2.7)
[2020-02-06 15:10] LABS: Phosphorus 2.9 mg/dL (2.5-5.0)
[2020-02-06] MEDS ORDERED: Vancomycin Trough Check NOTE FOLLOW UP ONE (15:30)
[2020-02-06] MEDS ORDERED: Naloxone 0.4 mg VIAL 0.4 mg/ml 1 ml VIAL IV PRN (16:20)
[2020-02-06] MEDS ORDERED: Ondansetron 4 mg VIAL 2 MG/ML 2 ml VIAL IV PRN (16:20)
[2020-02-06] MEDS ORDERED: VERAPAMIL 2.5 MG/ML 2 ML VIAL ** 5 mg/2 ml ONE (16:41)
[2020-02-06] MEDS ORDERED: Vancomycin 1,250 MG in NS 0.9% 250 ml 250 ML IVPB SCH (19:30)
[2020-02-06] MEDS: Multivitamins/Minerals TAB PO SCH (20:17)
[2020-02-06] MEDS: Morphine 2 MG/ML SYRINGE IV PRN (21:31)
[2020-02-07] MEDS: Calcium Carb (TUMS) 500 mg CHEW TAB PO SCH ×3 (01:58→21:50)
[2020-02-07] MEDS: Lactated Ringers 1000 ml BAG 1,000 ML IV SCH (02:44)
[2020-02-07] MEDS: Meropenem 2 GM in NS 0.9% 100 ml BAG 100 ML IVPB SCH ×2 (04:14→12:23)
[2020-02-07] MEDS ORDERED: Metoprolol Tartrate 5 mg VIAL 5 ml VIAL (1 mg/ml) IV ONE (05:23)
[2020-02-07 06:35] LABS: BUN/Creatinine Ratio 20.5 (8-20); Calcium 8.2 mg/dL (8.6-10.3); EGFR African American 67.5 (>60); EGFR Non-African American 55.7 (>60); Magnesium 1.8 mg/dL (1.9-2.7); Phosphorus 2.4 mg/dL (2.5-5.0); Potassium 4.2 mmol/L (3.5-5.0)
[2020-02-07] MEDS ORDERED: Magnesium Sulfate IV 1GM/100ML 1 GM/100 ML BAG IV ONE (06:48)
[2020-02-07 07:38] LABS: ABS Eosinophils 0.2 10^3/ul (0-0.6); ABS Lymphocytes 0.7 10^3/ul (1.0-4.8); ABS Monocytes 1.3 10^3/ul (0-0.8); ABS Neutrophils 7.6 10^3/ul (1.5-7.7); Eosinophil % 1.8 %; Hematocrit 27 % (42-52); Hemoglobin 9.1 g/dL (14.0-18.0); Lymphocyte % 6.7 %; Mean Corpuscular HGB Conc 34 g/dL (31-36); Mean Corpuscular Hemoglobin 35 pg (27-31); Mean Corpuscular Volume 104 fL (80-94); Mean Platelet Volume 8.8 fL (7.4-10.4); Nucleated Red Blood Cells % 0.1; Platelet Count 160 10^3/uL (150-450); Red Blood Count 2.62 10^6 /uL (4.18-5.48); Red Cell Distribution Width 13 % (10-15); White Blood Count 9.9 10^3/uL (3.5-10.8)
[2020-02-07] MEDS: Vancomycin 1,250 MG in NS 0.9% 250 ml 250 ML IVPB SCH ×2 (07:59→21:04)
[2020-02-07] MEDS ORDERED: Heparin 5000 UNITS/ML 1 mL VIAL IV SCH (09:00)
[2020-02-07] MEDS: Heparin DRIP 25,000 UNITS BAG 25,000 UNITS/500 ML BAG IV SCH (11:03)
[2020-02-07] MEDS: Morphine 2 MG/ML SYRINGE IV PRN (11:07)
[2020-02-07] MEDS: Meropenem 2 GM in NS 0.9% 100 ML IVPB SCH (19:50)
[2020-02-07] MEDS: Multivitamins/Minerals TAB PO SCH ×2 (19:50→20:02)
[2020-02-07] MEDS ORDERED: Thiamine 100 MG/ML 2 ml VIAL (200 mg) IM ONE (19:55)
[2020-02-07] MEDS ORDERED: LORazepam 2 mg VIAL 1 ml IV PUSH SCH (20:00)
[2020-02-07] MEDS ORDERED: Lorazepam PYXIS KEY PRN (20:19)
[2020-02-08] MEDS: Heparin DRIP 25,000 UNITS BAG 25,000 UNITS/500 ML BAG IV SCH
[2020-02-08] MEDS: Morphine 2 MG/ML SYRINGE IV PRN (03:16)
[2020-02-08] MEDS: Meropenem 2 GM in NS 0.9% 100 ML IVPB SCH ×2 (03:16→14:38)
[2020-02-08 05:09] LABS: ABS Eosinophils 0.3 10^3/ul (0-0.6); ABS Monocytes 1.5 10^3/ul (0-0.8); ABS Neutrophils 6.8 10^3/ul (1.5-7.7); Eosinophil % 2.8 %; Hematocrit 27 % (42-52); Hemoglobin 9.3 g/dL (14.0-18.0); Lymphocyte % 10.2 %; Mean Corpuscular HGB Conc 34 g/dL (31-36); Mean Corpuscular Hemoglobin 35 pg (27-31); Mean Corpuscular Volume 102 fL (80-94); Mean Platelet Volume 8.3 fL (7.4-10.4); Platelet Count 160 10^3/uL (150-450); Red Blood Count 2.66 10^6 /uL (4.18-5.48); Red Cell Distribution Width 13 % (10-15); White Blood Count 9.6 10^3/uL (3.5-10.8)
[2020-02-08 05:15] LABS: BUN/Creatinine Ratio 23.5 (8-20); Calcium 8.2 mg/dL (8.6-10.3); EGFR Non-African American 75.2 (>60); Potassium 3.9 mmol/L (3.5-5.0)
[2020-02-08] MEDS ORDERED: Potassium Chlor 20 meq TAB.ER PO ONE (05:15)
[2020-02-08] MEDS ORDERED: Vancomycin Trough Check NOTE FOLLOW UP ONE (07:30)
[2020-02-08] MEDS: Calcium Carb (TUMS) 500 mg CHEW TAB PO SCH ×2 (08:14→20:16)
[2020-02-08] MEDS: Multivitamins/Minerals TAB PO SCH ×2 (08:14→20:17)
[2020-02-08] MEDS ORDERED: fentaNYL 100 mcg/2 ml 50 MCG/ML VIAL ONE (08:51)
[2020-02-08] MEDS ORDERED: Midazolam 5 mg/5 ml VIAL 1 mg/ml 5 ml VIAL (5 mg) ONE (08:51)
[2020-02-08] MEDS ORDERED: Naloxone 0.4 mg VIAL 0.4 mg/ml 1 ml VIAL ONE (08:51)
[2020-02-08] MEDS ORDERED: Flumazenil 0.5 mg/5 ml 0.1 MG/ML 5 ml VIAL ONE (08:51)
[2020-02-08] MEDS: Vancomycin 1,250 MG in NS 0.9% 250 ml 250 ML IVPB SCH ×2 (12:36→20:16)
[2020-02-08] MEDS: cefTRIAXone 1 gm/50 mL NS BAG 1 GM/50 ML BAG IVPB SCH (22:25)
[2020-02-09 04:35] LABS: ABS Eosinophils 0.3 10^3/ul (0-0.6); ABS Monocytes 1.4 10^3/ul (0-0.8); ABS Neutrophils 6.8 10^3/ul (1.5-7.7); Eosinophil % 3.5 %; Hematocrit 27 % (42-52); Hemoglobin 9.2 g/dL (14.0-18.0); Lymphocyte % 10.5 %; Mean Corpuscular HGB Conc 34 g/dL (31-36); Mean Corpuscular Hemoglobin 35 pg (27-31); Mean Corpuscular Volume 101 fL (80-94); Mean Platelet Volume 8.3 fL (7.4-10.4); Nucleated Red Blood Cells % 0.1; Platelet Count 188 10^3/uL (150-450); Red Blood Count 2.63 10^6 /uL (4.18-5.48); Red Cell Distribution Width 14 % (10-15); White Blood Count 9.6 10^3/uL (3.5-10.8)
[2020-02-09 04:56] LABS: BUN/Creatinine Ratio 25.6 (8-20); Calcium 8.5 mg/dL (8.6-10.3); EGFR African American 111.7 (>60); EGFR Non-African American 92.4 (>60); Magnesium 1.8 mg/dL (1.9-2.7); Potassium 4.1 mmol/L (3.5-5.0)
[2020-02-09] MEDS ORDERED: Magnesium Sulfate 2 gm BAG 2 GM/50 ML BAG IVPB ONE (05:20)
[2020-02-09] MEDS ORDERED: Digoxin IV 0.5 MG/2 ML AMP (0.25 MG/ML) IV SLOW PU ONE (08:33)
[2020-02-09] MEDS ORDERED: NS 0.9% 250 ml 250 ML ONE (08:34)
[2020-02-09] MEDS: Vancomycin 1,250 MG in NS 0.9% 250 ml 250 ML IVPB SCH ×2 (08:42→20:22)
[2020-02-09] MEDS: Calcium Carb (TUMS) 500 mg CHEW TAB PO SCH ×2 (09:53→21:33)
[2020-02-09] MEDS: Morphine 2 MG/ML SYRINGE IV PRN ×2 (12:55→20:14)
[2020-02-09] MEDS: Digoxin IV 0.5 MG/2 ML AMP (0.25 MG/ML) IV SLOW PU SCH (18:20)
[2020-02-09] MEDS: Multivitamins/Minerals TAB PO SCH (21:34)
[2020-02-09] MEDS: cefTRIAXone 1 gm/50 mL NS BAG 1 GM/50 ML BAG IVPB SCH (23:11)
[2020-02-10] MEDS: Digoxin IV 0.5 MG/2 ML AMP (0.25 MG/ML) IV SLOW PU SCH (00:25)
[2020-02-10 06:08] LABS: ABS Basophils 0.1 10^3/ul (0-0.2); ABS Eosinophils 0.4 10^3/ul (0-0.6); ABS Monocytes 1.3 10^3/ul (0-0.8); ABS Neutrophils 4.9 10^3/ul (1.5-7.7); Eosinophil % 4.9 %; Hematocrit 28 % (42-52); Hemoglobin 9.6 g/dL (14.0-18.0); Lymphocyte % 13.2 %; Mean Corpuscular HGB Conc 34 g/dL (31-36); Mean Corpuscular Hemoglobin 35 pg (27-31); Mean Corpuscular Volume 103 fL (80-94); Mean Platelet Volume 8.1 fL (7.4-10.4); Platelet Count 248 10^3/uL (150-450); Red Blood Count 2.76 10^6 /uL (4.18-5.48); Red Cell Distribution Width 13 % (10-15); White Blood Count 7.7 10^3/uL (3.5-10.8)
[2020-02-10 06:25] LABS: BUN/Creatinine Ratio 24.1 (8-20); Calcium 8.6 mg/dL (8.6-10.3); EGFR African American 110.2 (>60); EGFR Non-African American 91.1 (>60); Magnesium 1.7 mg/dL (1.9-2.7); Potassium 4.2 mmol/L (3.5-5.0)
[2020-02-10] MEDS ORDERED: Magnesium Sulfate IV 1GM/100ML 1 GM/100 ML BAG IV ONE (08:10)
[2020-02-10] MEDS: Calcium Carb (TUMS) 500 mg CHEW TAB PO SCH ×2 (08:58→21:08)
[2020-02-10] MEDS: Morphine 2 MG/ML SYRINGE IV PRN ×2 (09:40→16:40)
[2020-02-10] MEDS: Vancomycin 1,250 MG in NS 0.9% 250 ml 250 ML IVPB SCH ×2 (09:40→21:08)
[2020-02-10] MEDS: Multivitamins/Minerals TAB PO SCH (21:08)
[2020-02-10] MEDS: cefTRIAXone 1 gm/50 mL NS BAG 1 GM/50 ML BAG IVPB SCH (23:57)
[2020-02-11] MEDS: Morphine 2 MG/ML SYRINGE IV PRN (03:12)
[2020-02-11] MEDS ORDERED: Vancomycin Trough Check NOTE FOLLOW UP ONE (08:00)
[2020-02-11 08:54] LABS: Vancomycin Trough 21.8 mcg/mL
[2020-02-11] MEDS: Vancomycin 1,250 MG in NS 0.9% 250 ml 250 ML IVPB SCH (09:07)
[2020-02-11] MEDS: Calcium Carb (TUMS) 500 mg CHEW TAB PO SCH ×2 (09:39→19:55)
[2020-02-11] MEDS ORDERED: Senna TAB 8.6 mg TAB PO PRN (09:51)
[2020-02-11] MEDS ORDERED: Magnesium Hydroxide LIQ 30 ML UDC PO PRN (09:51)
[2020-02-11] MEDS ORDERED: Glycerin ADULT 2.4 gm SUPP PR ONE (12:00)
[2020-02-11] MEDS ORDERED: Vancomycin 1,000 MG in NS 0.9% 250 ml 250 ML IVPB SCH (13:05)
[2020-02-11] MEDS: Vancomycin 1,000 MG in NS 0.9% 250 ml 250 ML IVPB SCH (14:35)
[2020-02-11] MEDS: Multivitamins/Minerals TAB PO SCH (19:55)
[2020-02-11] MEDS: cefTRIAXone 1 gm/50 mL NS BAG 1 GM/50 ML BAG IVPB SCH (21:13)
[2020-02-12] MEDS: Morphine 2 MG/ML SYRINGE IV PRN (00:20)
[2020-02-12] MEDS: Vancomycin 1,000 MG in NS 0.9% 250 ml 250 ML IVPB SCH ×2 (01:56→14:52)
[2020-02-12] MEDS: Calcium Carb (TUMS) 500 mg CHEW TAB PO SCH ×2 (09:48→21:09)
[2020-02-12] MEDS ORDERED: Buffered Lidocaine 1% SYRIN 1 ml INTRADERM ONE (10:53)
[2020-02-12] MEDS: Multivitamins/Minerals TAB PO SCH (21:09)
[2020-02-13] MEDS: Vancomycin 1,000 MG in NS 0.9% 250 ml 250 ML IVPB SCH ×2 (02:01→16:18)
[2020-02-13] MEDS: Calcium Carb (TUMS) 500 mg CHEW TAB PO SCH ×2 (08:50→21:17)
[2020-02-13] MEDS ORDERED: Buffered Lidocaine 1% SYRIN 1 ml INTRADERM ONE (12:48)
[2020-02-13] MEDS ORDERED: Vancomycin Trough Check NOTE FOLLOW UP ONE (13:30)
[2020-02-13 17:08] LABS: EGFR African American 75.6 (>60); EGFR Non-African American 62.5 (>60)
[2020-02-13] MEDS: Multivitamins/Minerals TAB PO SCH (21:18)
[2020-02-14] MEDS: Calcium Carb (TUMS) 500 mg CHEW TAB PO SCH (08:37)
[2020-02-14] MEDS ORDERED: VANCOMYCIN IVPB SCH (09:00)
[2020-02-14] MEDS ORDERED: [UNRECOGNIZED DRUG - OTHER] IVPB SCH (09:00)
[2020-02-14 11:09] VITALS: BP 140/78
[2020-02-17] MEDS ORDERED: Vancomycin Trough Check NOTE FOLLOW UP ONE (08:30)
== END 2020-02-14 17:40 | DRG 853 ==
LOC: ED 21:38 → ICU 02-05 03:11 → SSU 02-09 08:49
PROVIDERS: ADMIT Internal Medicine; ATTEND Internal Medicine
PROC: O.ORAMP (2020-02-06 14:00)

== ENCOUNTER 2020-02-20 20:40 | Inpatient (IN) ==
[2020-02-20] MEDS ORDERED: NS 0.9% 1000 ml BAG 1,000 ML IV.FLUID IV ONE (21:03)
[2020-02-20 23:01] LABS: ABS Basophils 0.1 10^3/ul (0-0.2); ABS Eosinophils 0.4 10^3/ul (0-0.6); ABS Lymphocytes 1.3 10^3/ul (1.0-4.8); ABS Monocytes 1.3 10^3/ul (0-0.8); ABS Neutrophils 8.1 10^3/ul (1.5-7.7); Eosinophil % 3.5 %; Hematocrit 31 % (42-52); Hemoglobin 10.4 g/dL (14.0-18.0); Lymphocyte % 11.5 %; Mean Corpuscular HGB Conc 34 g/dL (31-36); Mean Corpuscular Hemoglobin 34 pg (27-31); Mean Corpuscular Volume 100 fL (80-94); Mean Platelet Volume 8.8 fL (7.4-10.4); Platelet Count 351 10^3/uL (150-450); Red Cell Distribution Width 14 % (10-15); White Blood Count 11.2 10^3/uL (3.5-10.8)
[2020-02-20 23:17] LABS: ALT 23 U/L (7-52); AST 26 U/L (13-39); Activated Partial Thrombo Time 40.7 seconds (26.0-38.0); Albumin 2.9 g/dL (3.2-5.2); Albumin/Globulin Ratio 0.7 (1-3); Alkaline Phosphatase 147 U/L (34-104); Anion Gap 7 mmol/L (2-11); BUN/Creatinine Ratio 15.2 (8-20); Blood Urea Nitrogen 22 mg/dL (6-24); CO2 Carbon Dioxide 24 mmol/L (22-32); Calcium 8.7 mg/dL (8.6-10.3); Chloride 105 mmol/L (101-111); EGFR African American 57.9 (>60); EGFR Non-African American 47.8 (>60); Globulin 3.9 g/dL (2-4); Glucose 140 mg/dL (70-100); INR 1.93 (0.82-1.09); Potassium 4.2 mmol/L (3.5-5.0); Sodium 136 mmol/L (135-145); Total Protein 6.8 g/dL (6.4-8.9)
[2020-02-20 23:22] LABS: Troponin I 0.03 ng/mL (<0.03)
[2020-02-21 00:37] LABS: Urine Appearance Clear; Urine Bilirubin Negative (Negative); Urine Blood Negative (Negative); Urine Color Yellow; Urine Glucose Negative (Negative); Urine Ketones Negative (Negative); Urine Nitrite Negative (Negative); Urine Protein Negative (Negative); Urine Specific Gravity 1.011 (1.010-1.030); Urine Urobilinogen Negative (Negative)
[2020-02-21] MEDS ORDERED: Cefepime 1 GM in Dextrose 1 GM/50 ML BAG IV ONE (00:51)
[2020-02-21] MEDS ORDERED: Vancomycin 1,500 MG in NS 0.9% 250 ml 250 ML IVPB ONE (01:07)
[2020-02-21] MEDS ORDERED: Alteplase (CATHFLO) 2 MG VIAL IV ONE (01:50)
[2020-02-21] MEDS ORDERED: Senna TAB 8.6 mg TAB PO PRN (03:01)
[2020-02-21 03:12] LABS: C Reactive Protein 35.55 mg/L (<8.01)
[2020-02-21] MEDS ORDERED: Iodixanol (CONTRAST) 320 MG/ML 100 ML SDV IV ONE (03:32)
[2020-02-21] MEDS ORDERED: Vancomycin per Pharmacy 1 EA NOTE FOLLOW UP SCH (04:00)
[2020-02-21] MEDS ORDERED: Enoxaparin 30 MG/0.3 ML SYR SUBCUT SCH (04:00)
[2020-02-21] MEDS: NS 0.9% 1000 ml BAG 1,000 ML IV SCH (05:24)
[2020-02-21 06:30] LABS: ABS Basophils 0.1 10^3/ul (0-0.2); ABS Eosinophils 0.4 10^3/ul (0-0.6); ABS Lymphocytes 1.7 10^3/ul (1.0-4.8); ABS Monocytes 1.2 10^3/ul (0-0.8); Eosinophil % 4.5 %; Hematocrit 33 % (42-52); Hemoglobin 11.1 g/dL (14.0-18.0); Lymphocyte % 18.4 %; Mean Corpuscular HGB Conc 34 g/dL (31-36); Mean Corpuscular Hemoglobin 34 pg (27-31); Mean Corpuscular Volume 101 fL (80-94); Mean Platelet Volume 9.1 fL (7.4-10.4); Platelet Count 310 10^3/uL (150-450); Red Blood Count 3.22 10^6 /uL (4.18-5.48); Red Cell Distribution Width 14 % (10-15); White Blood Count 9.4 10^3/uL (3.5-10.8)
[2020-02-21 06:56] LABS: BUN/Creatinine Ratio 15.1 (8-20); C Reactive Protein 35.41 mg/L (<8.01); Calcium 8.5 mg/dL (8.6-10.3); EGFR African American 68.1 (>60); EGFR Non-African American 56.3 (>60); Potassium 4.2 mmol/L (3.5-5.0)
[2020-02-21] MEDS: Heparin 5000 UNITS/ML 1 mL VIAL SUBCUT SCH ×2 (08:21→14:42)
[2020-02-21] MEDS: Calcium Carb (TUMS) 500 mg CHEW TAB PO SCH ×2 (08:28→22:41)
[2020-02-21] MEDS: Cefepime 2 GM in Dextrose 2 GM/50 ML BAG IV SCH ×2 (12:20→23:14)
[2020-02-21 17:10] LABS: BUN/Creatinine Ratio 14.7 (8-20); Calcium 8.8 mg/dL (8.6-10.3); EGFR African American 80.5 (>60); EGFR Non-African American 66.5 (>60); Potassium 4.1 mmol/L (3.5-5.0)
[2020-02-21] MEDS: Multivitamins/Minerals TAB PO SCH (22:40)
[2020-02-22] MEDS: NS 0.9% 1000 ml BAG 1,000 ML IV SCH ×2 (03:30→13:58)
[2020-02-22] MEDS ORDERED: Vancomycin 1,250 MG IV Q24H IVPB SCH (06:00)
[2020-02-22] MEDS: Calcium Carb (TUMS) 500 mg CHEW TAB PO SCH ×2 (09:07→20:31)
[2020-02-22] MEDS: Cefepime 2 GM in Dextrose 2 GM/50 ML BAG IV SCH (11:59)
[2020-02-22] MEDS ORDERED: metroNIDAZOLE IV 500 MG/100ML 500 MG/100 ML BAG IVPB SCH (18:00)
[2020-02-22] MEDS: metroNIDAZOLE IV 500 MG/100ML 100 ML IVPB SCH (20:28)
[2020-02-22] MEDS: Multivitamins/Minerals TAB PO SCH (20:32)
[2020-02-23] MEDS: cefTRIAXone 1 gm/50 mL NS BAG 1 GM/50 ML BAG IVPB SCH (00:42)
[2020-02-23] MEDS: NS 0.9% 1000 ml BAG 1,000 ML IV SCH ×2 (00:43→21:49)
[2020-02-23] MEDS: metroNIDAZOLE IV 500 MG/100ML 100 ML IVPB SCH ×3 (03:56→21:41)
[2020-02-23] MEDS: Calcium Carb (TUMS) 500 mg CHEW TAB PO SCH ×2 (08:12→21:42)
[2020-02-23 10:27] LABS: ABS Basophils 0.1 10^3/ul (0-0.2); ABS Eosinophils 0.5 10^3/ul (0-0.6); ABS Lymphocytes 1.4 10^3/ul (1.0-4.8); ABS Monocytes 1.1 10^3/ul (0-0.8); ABS Neutrophils 6.2 10^3/ul (1.5-7.7); Eosinophil % 5.6 %; Hematocrit 34 % (42-52); Lymphocyte % 14.9 %; Mean Corpuscular HGB Conc 32 g/dL (31-36); Mean Corpuscular Hemoglobin 33 pg (27-31); Mean Corpuscular Volume 103 fL (80-94); Mean Platelet Volume 9.4 fL (7.4-10.4); Platelet Count 268 10^3/uL (150-450); Red Blood Count 3.32 10^6 /uL (4.18-5.48); Red Cell Distribution Width 15 % (10-15); White Blood Count 9.3 10^3/uL (3.5-10.8)
[2020-02-23 10:37] LABS: CO2 Carbon Dioxide 17 mmol/L (22-32); Calcium 8.5 mg/dL (8.6-10.3); Chloride 111 mmol/L (101-111); Sodium 137 mmol/L (135-145)
[2020-02-23 10:38] LABS: Anion Gap 9 mmol/L (2-11)
[2020-02-23 10:42] LABS: BUN/Creatinine Ratio 10.2 (8-20); Blood Urea Nitrogen 13 mg/dL (6-24); C Reactive Protein 26.34 mg/L (<8.01); EGFR African American 67.5 (>60); EGFR Non-African American 55.7 (>60); Glucose 97 mg/dL (70-100)
[2020-02-23] MEDS: Multivitamins/Minerals TAB PO SCH (21:43)
[2020-02-24] MEDS: cefTRIAXone 1 gm/50 mL NS BAG 1 GM/50 ML BAG IVPB SCH ×2 (00:02→21:29)
[2020-02-24] MEDS: metroNIDAZOLE IV 500 MG/100ML 100 ML IVPB SCH ×3 (03:52→19:43)
[2020-02-24] MEDS: NS 0.9% 1000 ml BAG 1,000 ML IV SCH ×2 (09:30→22:34)
[2020-02-24] MEDS: Calcium Carb (TUMS) 500 mg CHEW TAB PO SCH ×2 (09:32→20:56)
[2020-02-24] MEDS ORDERED: Al Hydrox/Mg Hydrox/Simet LIQ 30 ML UDC PO PRN (15:49)
[2020-02-24] MEDS: Benzocaine (DENTAL) 10% TOP.GEL TOPICAL PRN (16:10)
[2020-02-24] MEDS: Multivitamins/Minerals TAB PO SCH (20:56)
[2020-02-25] MEDS: Benzocaine (DENTAL) 10% TOP.GEL TOPICAL PRN ×2 (00:02→09:17)
[2020-02-25] MEDS: metroNIDAZOLE IV 500 MG/100ML 100 ML IVPB SCH ×3 (03:07→19:27)
[2020-02-25] MEDS ORDERED: Vancomycin Trough Check NOTE FOLLOW UP ONE (05:30)
[2020-02-25 05:47] LABS: ABS Basophils 0.1 10^3/ul (0-0.2); ABS Eosinophils 0.7 10^3/ul (0-0.6); ABS Lymphocytes 1.5 10^3/ul (1.0-4.8); ABS Monocytes 0.9 10^3/ul (0-0.8); ABS Neutrophils 4.9 10^3/ul (1.5-7.7); Eosinophil % 8.5 %; Hematocrit 29 % (42-52); Hemoglobin 9.8 g/dL (14.0-18.0); Lymphocyte % 18.4 %; Mean Corpuscular HGB Conc 34 g/dL (31-36); Mean Corpuscular Hemoglobin 34 pg (27-31); Mean Corpuscular Volume 99 fL (80-94); Mean Platelet Volume 9.3 fL (7.4-10.4); Platelet Count 244 10^3/uL (150-450); Red Blood Count 2.91 10^6 /uL (4.18-5.48); Red Cell Distribution Width 14 % (10-15)
[2020-02-25 06:10] LABS: BUN/Creatinine Ratio 12.3 (8-20); Calcium 8.5 mg/dL (8.6-10.3); EGFR African American 83.1 (>60); EGFR Non-African American 68.7 (>60); Potassium 3.9 mmol/L (3.5-5.0)
[2020-02-25 07:07] LABS: Magnesium 1.4 mg/dL (1.9-2.7)
[2020-02-25] MEDS ORDERED: Magnesium Sulfate IV 3 GM in NS 0.9% 100 ml BAG 100 ML IVPB ONE (08:00)
[2020-02-25] MEDS: Calcium Carb (TUMS) 500 mg CHEW TAB PO SCH ×2 (09:17→20:42)
[2020-02-25] MEDS: NS 0.9% 1000 ml BAG 1,000 ML IV SCH (09:20)
[2020-02-25] MEDS: Multivitamins/Minerals TAB PO SCH (20:42)
[2020-02-25] MEDS: cefTRIAXone 1 gm/50 mL NS BAG 1 GM/50 ML BAG IVPB SCH (22:24)
[2020-02-26] MEDS: metroNIDAZOLE IV 500 MG/100ML 100 ML IVPB SCH ×2 (04:19→11:58)
[2020-02-26 06:21] LABS: ABS Basophils 0.1 10^3/ul (0-0.2); ABS Eosinophils 0.6 10^3/ul (0-0.6); ABS Lymphocytes 1.5 10^3/ul (1.0-4.8); ABS Neutrophils 5.6 10^3/ul (1.5-7.7); Eosinophil % 6.4 %; Hematocrit 30 % (42-52); Hemoglobin 9.9 g/dL (14.0-18.0); Lymphocyte % 17.3 %; Mean Corpuscular HGB Conc 33 g/dL (31-36); Mean Corpuscular Hemoglobin 33 pg (27-31); Mean Corpuscular Volume 100 fL (80-94); Mean Platelet Volume 8.7 fL (7.4-10.4); Platelet Count 229 10^3/uL (150-450); Red Cell Distribution Width 14 % (10-15); White Blood Count 8.8 10^3/uL (3.5-10.8)
[2020-02-26 06:38] LABS: BUN/Creatinine Ratio 11.3 (8-20); Calcium 8.5 mg/dL (8.6-10.3); EGFR African American 69.3 (>60); EGFR Non-African American 57.3 (>60); Magnesium 1.5 mg/dL (1.9-2.7); Potassium 4.1 mmol/L (3.5-5.0)
[2020-02-26] MEDS: Calcium Carb (TUMS) 500 mg CHEW TAB PO SCH (11:52)
[2020-02-26 12:22] VITALS: BP 110/60
== END 2020-02-26 16:00 | disposition swing bed (61) | DRG 871 ==
LOC: SSU 20:40 → ED 20:40 → SSU 02-21 05:03
PROVIDERS: ADMIT Student in an Organized Health Care Education/Training Program; ATTEND Internal Medicine

== ENCOUNTER 2023-10-01 18:41 | Inpatient (IN) ==
[2023-10-01 19:24] LABS: Hematocrit 46.7 % (38-53); Hemoglobin 15.4 g/dL (13.2-16.3); Mean Corpuscular Hemoglobin 33.1 pg (27-33); Mean Corpuscular Hgb Conc 32.9 g/dL (31-36); Mean Corpuscular Volume 100.4 fL (80-97); Mean Platelet Volume 9.1 fL (7.5-11.2); Platelet Count 144 10^3/uL (150-450); Red Blood Count 4.65 10^6/uL (4.06-5.63); Red Cell Distribution Width 14.6 % (12-17); White Blood Count 23.7 10^3/uL (3.6-10.2)
[2023-10-01] MEDS ORDERED: cefTRIAXone 2 GM ADDV.VIAL 2 GM in NS 0.9% 100 ml BAG 100 ML IV ONE (19:24)
[2023-10-01 19:34] LABS: Activated Partial Thrombo Time 39.5 seconds (26.0-38.0); INR 1.5 (0.83-1.13)
[2023-10-01 20:11] LABS: Urine Appearance Extra Turbid; Urine Bilirubin Negative (Negative); Urine Blood 3+ (Negative); Urine Glucose Negative (Negative); Urine Ketones Negative (Negative); Urine Nitrite Negative (Negative); Urine Protein 1+ (>=30 mg/dL) (Negative); Urine Specific Gravity 1.017 (1.002-1.030); Urine Urobilinogen Negative (Negative); Urine pH 5.5 (5.0-8.0)
[2023-10-01 20:14] LABS: Urine Bacteria 1+ /HPF (Absent); Urine Red Blood Cell 3+(>10/hpf) /HPF (0-Trace); Urine Squamous Epithelial Cell Present /HPF (Absent); Urine White Blood Cell 3+(>20/hpf) /HPF (0-Trace)
[2023-10-01 20:15] LABS: Albumin 3.2 g/dL (3.2-5.2); C Reactive Protein 202.65 mg/L (<8.01); Calcium 8.3 mg/dL (8.6-10.3); Creatinine, Serum 1.26 mg/dL (0.67-1.17); Globulin 3.2 g/dL (2-4); Potassium 4.6 mmol/L (3.5-5.0); Total Bilirubin 1.2 mg/dL (0.2-1.0); Total Protein 6.4 g/dL (6.4-8.9); eGFR CKD-EPI 59.5 (>60)
[2023-10-01 20:28] LABS: ABS Basophils 0.1 10^3/uL (0.0-0.1); ABS Lymphocytes 0.5 10^3/uL (1.0-4.8); ABS Monocytes 2.4 10^3/uL (0.0-1.1); ABS Neutrophils 20.7 10^3/uL (1.5-7.6); ABS Nucleated RBC 0.01 10^3/ul; Eosinophil % 0.1 %; RBC Morphology Normal (Normal)
[2023-10-01] MEDS: cefTRIAXone 2 gm/50 mL D5W 2 GM/50 ML BAG IV ONE (20:43)
[2023-10-01] MEDS: Lactated Ringers SEPSIS* BAG 2,540 ML IV ONE (21:03)
[2023-10-01 21:23] LABS: High Sensitivity Troponin 1 Hr 30 pg/mL (<20)
[2023-10-01 21:34] LABS: Urine Color Yellow
[2023-10-01] MEDS ORDERED: Senna TAB 8.6 mg TAB PO PRN (22:38)
[2023-10-01] MEDS ORDERED: Ondansetron 4 mg VIAL 2 MG/ML 2 ml VIAL IV PRN (23:07)
[2023-10-01] MEDS ORDERED: Vancomycin 1,000 MG in NS 0.9% 250 ml 250 ML IVPB SCH (23:45)
[2023-10-02] MEDS: Lactated Ringers 1000 ml BAG 1,000 ML IV SCH (00:26)
[2023-10-02] MEDS ORDERED: Vancomycin per Pharmacy 1 EA NOTE FOLLOW UP PRN (01:20)
[2023-10-02] MEDS: LORazepam 2 mg VIAL 1 ml IV SCH (01:30)
[2023-10-02] MEDS: Lactated Ringers 1000 ml BAG 1,000 ML IV ONE (01:39)
[2023-10-02] MEDS: Thiamine 100 MG/ML 2 ml VIAL (200 mg) IM ONE (01:41)
[2023-10-02] MEDS: Vancomycin 2,000 MG in NS 0.9% 500 ml BAG 500 ML IVPB ONE (02:27)
[2023-10-02 06:09] LABS: Hematocrit 42.3 % (38-53); Hemoglobin 14.6 g/dL (13.2-16.3); Mean Corpuscular Hemoglobin 34.4 pg (27-33); Mean Corpuscular Hgb Conc 34.5 g/dL (31-36); Mean Corpuscular Volume 99.7 fL (80-97); Mean Platelet Volume 9.2 fL (7.5-11.2); Platelet Count 112 10^3/uL (150-450); Red Blood Count 4.24 10^6/uL (4.06-5.63); Red Cell Distribution Width 14.5 % (12-17); White Blood Count 20.9 10^3/uL (3.6-10.2)
[2023-10-02 06:55] LABS: Calcium 8.3 mg/dL (8.6-10.3); Creatinine, Serum 1.25 mg/dL (0.67-1.17); Potassium 4.3 mmol/L (3.5-5.0); eGFR CKD-EPI 60.1 (>60)
[2023-10-02] MEDS ORDERED: cefTRIAXone 1 gm/50 mL D5W 1 GM/50 ML BAG IV SCH ×2 (07:00→08:00)
[2023-10-02 07:06] LABS: Albumin/Globulin Ratio 1.1 (1-3); Globulin 2.8 g/dL (2-4); Magnesium 1.7 mg/dL (1.9-2.7); Total Bilirubin 1.2 mg/dL (0.2-1.0); Total Protein 5.8 g/dL (6.4-8.9)
[2023-10-02 08:55] LABS: ABS Lymphocytes 0.4 10^3/uL (1.0-4.8); ABS Monocytes 1.7 10^3/uL (0.0-1.1); ABS Neutrophils 18.8 10^3/uL (1.5-7.6); ABS Nucleated RBC 0.01 10^3/ul; Lymphocyte % 1.9 %; RBC Morphology Normal (Normal)
[2023-10-02] MEDS: Multivitamins/Minerals TAB PO SCH (10:43)
[2023-10-02] MEDS: Magnesium Sulfate 2 gm BAG 2 GM/50 ML BAG IVPB ONE (10:45)
[2023-10-02] MEDS: cefTRIAXone 2 gm/50 mL D5W 2 GM/50 ML BAG IV SCH (20:33)
[2023-10-02] MEDS ORDERED: Vancomycin 2,000 MG in NS 0.9% 500 ml BAG 500 ML IVPB SCH (22:00)
[2023-10-03 07:17] LABS: Hematocrit 42.1 % (38-53); Hemoglobin 13.9 g/dL (13.2-16.3); Mean Corpuscular Hemoglobin 33.2 pg (27-33); Mean Corpuscular Volume 100.8 fL (80-97); Mean Platelet Volume 9.6 fL (7.5-11.2); Platelet Count 115 10^3/uL (150-450); Red Blood Count 4.18 10^6/uL (4.06-5.63); Red Cell Distribution Width 14.5 % (12-17); White Blood Count 13.8 10^3/uL (3.6-10.2)
[2023-10-03 07:50] LABS: Calcium 8.2 mg/dL (8.6-10.3); Creatinine, Serum 1.26 mg/dL (0.67-1.17); Magnesium 2.1 mg/dL (1.9-2.7); Potassium 4.4 mmol/L (3.5-5.0); eGFR CKD-EPI 59.5 (>60)
[2023-10-03 08:38] LABS: ABS Lymphocytes 0.3 10^3/uL (1.0-4.8); ABS Monocytes 1.2 10^3/uL (0.0-1.1); ABS Neutrophils 12.1 10^3/uL (1.5-7.6); ABS Nucleated RBC 0.01 10^3/ul; Eosinophil % 0.3 %; Lymphocyte % 2.4 %; RBC Morphology Normal (Normal)
[2023-10-03] MEDS: Sulfur Hexaflouride MICROSPHR 25 MG VIAL IV ONE (12:45)
[2023-10-03] MEDS: NS 0.9% 500 ml BAG 500 ML IV ONE (17:18)
[2023-10-03 21:57] LABS: Hematocrit 43.6 % (38-53); Hemoglobin 14.3 g/dL (13.2-16.3); Mean Corpuscular Hemoglobin 33.1 pg (27-33); Mean Corpuscular Hgb Conc 32.8 g/dL (31-36); Mean Corpuscular Volume 100.8 fL (80-97); Mean Platelet Volume 9.1 fL (7.5-11.2); Platelet Count 111 10^3/uL (150-450); Red Blood Count 4.33 10^6/uL (4.06-5.63); Red Cell Distribution Width 14.5 % (12-17); White Blood Count 11.4 10^3/uL (3.6-10.2)
[2023-10-03] MEDS: Albuterol 2.5mg/3 ml (0.083%) NEB.SOLN INH ONE (22:13)
[2023-10-03 22:18] LABS: ABS Lymphocytes 0.2 10^3/uL (1.0-4.8); ABS Monocytes 1.1 10^3/uL (0.0-1.1); Eosinophil % 0.3 %; RBC Morphology Normal (Normal)
[2023-10-03 22:24] LABS: Albumin 2.9 g/dL (3.2-5.2); Albumin/Globulin Ratio 0.9 (1-3); Calcium 8.3 mg/dL (8.6-10.3); Creatinine, Serum 1.26 mg/dL (0.67-1.17); Globulin 3.1 g/dL (2-4); Potassium 4.9 mmol/L (3.5-5.0); Total Bilirubin 0.8 mg/dL (0.2-1.0); eGFR CKD-EPI 59.5 (>60)
[2023-10-03] MEDS: Lactated Ringers 1000 ml BAG 1,000 ML IV ONE (22:55)
[2023-10-04] MEDS: Azithromycin 500 mg/250 ml NS 500 MG/250 ML BAG IVPB SCH (00:15)
[2023-10-04 07:51] LABS: Hematocrit 39.3 % (38-53); Hemoglobin 13.5 g/dL (13.2-16.3); Mean Corpuscular Hemoglobin 34.3 pg (27-33); Mean Corpuscular Hgb Conc 34.4 g/dL (31-36); Mean Corpuscular Volume 99.8 fL (80-97); Mean Platelet Volume 9.8 fL (7.5-11.2); Platelet Count 101 10^3/uL (150-450); Red Blood Count 3.94 10^6/uL (4.06-5.63); Red Cell Distribution Width 14.5 % (12-17); White Blood Count 8.1 10^3/uL (3.6-10.2)
[2023-10-04 08:08] LABS: C Reactive Protein 183.01 mg/L (<8.01); Creatinine, Serum 1.12 mg/dL (0.67-1.17); Potassium 4.5 mmol/L (3.5-5.0); eGFR CKD-EPI 68.5 (>60)
[2023-10-04 08:41] LABS: ABS Eosinophils 0.1 10^3/uL (0.0-0.5); ABS Lymphocytes 0.5 10^3/uL (1.0-4.8); ABS Monocytes 1.1 10^3/uL (0.0-1.1); ABS Neutrophils 6.4 10^3/uL (1.5-7.6); Eosinophil % 0.7 %; Lymphocyte % 6.4 %; RBC Morphology Normal (Normal)
[2023-10-04] MEDS: Furosemide 40 mg/4 ml IV VIAL IV ONE (14:02)
[2023-10-04] MEDS: Iodixanol (CONTRAST) 320 MG/ML 100 ML SDV IV ONE (20:07)
[2023-10-04] MEDS ORDERED: Vancomycin Trough Check NOTE FOLLOW UP ONE (21:30)
[2023-10-04] MEDS ORDERED: Zosyn per Pharmacy NOTE FOLLOW UP SCH (23:00)
[2023-10-05] MEDS: Piperacillin/Tazobac 3.375 BAG 3.375 GM/100 ML BAG IV ONE (02:06)
[2023-10-05] MEDS: ZOSYN 3.375 GM Q8H per EXTENDED INFUSION IV SCH (06:14)
[2023-10-05 06:42] LABS: Hematocrit 40.1 % (38-53); Hemoglobin 13.9 g/dL (13.2-16.3); Mean Corpuscular Hemoglobin 34.4 pg (27-33); Mean Corpuscular Hgb Conc 34.6 g/dL (31-36); Mean Corpuscular Volume 99.2 fL (80-97); Mean Platelet Volume 9.1 fL (7.5-11.2); Platelet Count 108 10^3/uL (150-450); Red Blood Count 4.04 10^6/uL (4.06-5.63); Red Cell Distribution Width 14.4 % (12-17); White Blood Count 8.9 10^3/uL (3.6-10.2)
[2023-10-05 07:06] LABS: Calcium 8.2 mg/dL (8.6-10.3); Creatinine, Serum 1.12 mg/dL (0.67-1.17); Potassium 4.3 mmol/L (3.5-5.0); eGFR CKD-EPI 68.5 (>60)
[2023-10-05 07:25] LABS: ABS Eosinophils 0.1 10^3/uL (0.0-0.5); ABS Lymphocytes 0.6 10^3/uL (1.0-4.8); ABS Monocytes 1.5 10^3/uL (0.0-1.1); ABS Neutrophils 6.7 10^3/uL (1.5-7.6); Eosinophil % 1.4 %; Lymphocyte % 6.9 %; RBC Morphology Normal (Normal)
[2023-10-05] MEDS: Furosemide 40 mg/4 ml IV VIAL IV ONE (15:50)
[2023-10-05] MEDS: cefTRIAXone 2 gm/50 mL D5W 2 GM/50 ML BAG IV SCH (17:14)
[2023-10-06 06:53] LABS: Hematocrit 41.2 % (38-53); Hemoglobin 13.9 g/dL (13.2-16.3); Mean Corpuscular Hemoglobin 33.6 pg (27-33); Mean Corpuscular Hgb Conc 33.8 g/dL (31-36); Mean Corpuscular Volume 99.4 fL (80-97); Mean Platelet Volume 9.1 fL (7.5-11.2); Platelet Count 133 10^3/uL (150-450); Red Blood Count 4.15 10^6/uL (4.06-5.63); Red Cell Distribution Width 14.4 % (12-17); White Blood Count 9.2 10^3/uL (3.6-10.2)
[2023-10-06 09:10] LABS: ABS Basophils 0.1 10^3/uL (0.0-0.1); ABS Eosinophils 0.3 10^3/uL (0.0-0.5); ABS Lymphocytes 0.9 10^3/uL (1.0-4.8); ABS Monocytes 1.6 10^3/uL (0.0-1.1); ABS Neutrophils 6.4 10^3/uL (1.5-7.6); ABS Nucleated RBC 0.01 10^3/ul; Eosinophil % 2.9 %; Lymphocyte % 9.8 %; Nucleated Red Blood Cells % 0.1 %/100WBC (0.0-0.8); RBC Morphology Normal (Normal)
[2023-10-06 09:54] LABS: C Reactive Protein 100.1 mg/L (<8.01); Calcium 8.2 mg/dL (8.6-10.3); Creatinine, Serum 1.16 mg/dL (0.67-1.17); eGFR CKD-EPI 65.7 (>60)
[2023-10-07 07:23] LABS: Hematocrit 41.2 % (38-53); Hemoglobin 14.1 g/dL (13.2-16.3); Mean Corpuscular Hgb Conc 34.2 g/dL (31-36); Mean Corpuscular Volume 99.4 fL (80-97); Mean Platelet Volume 9.2 fL (7.5-11.2); Platelet Count 161 10^3/uL (150-450); Red Blood Count 4.15 10^6/uL (4.06-5.63); Red Cell Distribution Width 14.5 % (12-17); White Blood Count 9.5 10^3/uL (3.6-10.2)
[2023-10-07 07:25] LABS: Calcium 8.2 mg/dL (8.6-10.3); Creatinine, Serum 1.19 mg/dL (0.67-1.17); Magnesium 1.9 mg/dL (1.9-2.7); Potassium 4.2 mmol/L (3.5-5.0); eGFR CKD-EPI 63.7 (>60)
[2023-10-07 08:53] LABS: ABS Eosinophils 0.2 10^3/uL (0.0-0.5); ABS Monocytes 1.7 10^3/uL (0.0-1.1); ABS Neutrophils 6.6 10^3/uL (1.5-7.6); Eosinophil % 1.9 %; Lymphocyte % 10.4 %
[2023-10-07 10:00] VITALS: BP 123/87
[2023-10-07 10:18] LABS: Rapid COVID-19 Molecular Undetected (Undetected)
== END 2023-10-07 13:00 | DRG 871 ==
LOC: ED 18:41 → EDHOLD 21:02 → SUATTDRO 21:02 → MEDTELE 22:37
PROVIDERS: ADMIT Internal Medicine; ATTEND Student in an Organized Health Care Education/Training Program